=== PATIENT | female | born 2000 | race African-American/Black ===

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

== ENCOUNTER 2021-05-07 17:27 | Inpatient (IN) ==
[2021-05-07] MEDS ORDERED: SODIUM CHLORIDE 0.9% 1000ML 2,000 ML IV ONE (19:27)
[2021-05-07] MEDS ORDERED: ONDANSETRON INJ 2 MG/ML 2 ML VIAL IV STA (19:27)
[2021-05-07] MEDS ORDERED: MoRPHine SULFATE 10 MG/ML CARP/VIAL IV STA (19:27)
--- NOTE | 2021-05-07 19:34 | Emergency Department Note ---
Impression & Plan Sepsis, Sickle cell disease, Pneumonia, Leukocytosis ED Provider Note NAME: SYMONE SAN AGE: 21 SEX: F : 2000 ARRIVES VIA: Walk-In INFORMANT: Patient ED PROVIDER(S): Patrick Stoll DO CHIEF COMPLAINT: Diffuse pain HPI: Patient is a 21-year-old female with a PMH of sickle cell disease, vaginal ulceration, sepsis, sickle cell crises, and pyelonephritis presents to the ER for diffuse joint pain including the bilateral knees and lower back. She also admits to nausea and vomiting. She feels as though this is consistent with her previous sickle cell crisis. She does admit to a cough which is new. She has not been coughing anything up. When she does cough her chest hurts. If she is not coughing she has no chest pain or shortness of breath. She denies any belly pain. No dysuria urgency or frequency. No other exacerbating or remitting fac tors. ROS: See above HPI for pertinent positives & negatives. A total of 10 systems reviewed and were otherwise negative. PAST MEDICAL HISTORY:See Below PAST SURGICAL HISTORY:See Below FAMILY HISTORY:See Below SOCIAL HISTORY:See Below HOME MEDICATIONS:See Below ALLERGIES:See Below VITALS:See Below PHYSICAL EXAMINATION: GENERAL: Sitting up in bed, alert, well appearing, well nourished, no distress, non-toxic EYE EXAM: normal conjunctiva. OROPHARYNX: no exudate, no erythema, lips, buccal mucosa, and tongue normal and mucous membranes are moist NECK: supple, no nuchal rigidity, no adenopathy, non-tender LUNGS: Clear to auscultation. Normal chest wall mechanics HEART: no murmurs, S1 normal and S2 normal ABDOMEN: abdomen soft, non-tender, normo-active bowel sounds, no masses, no rebound or guarding. UPPER EXTREMITIES: upper extremities are grossly normal. LOWER EXTREMITIES: No pitting edema. Flexion-extension of bilateral hips knees and ankles intact. No erythema or swelling. Able to ambulate. NEURO EXAM: Normal sensorium, cranial nerves II-XII grossly intact, normal speech, no gross weakness of arms, no gross weakness of legs. MEDICAL DECISION MAKING: Patient is a 21-year-old female who presents ER for the above-stated complaint. IV was established blood work was obtained. Labs show a significant leukocytosis of 30k. No anemia. BMP along with LFTs, bilirubin, and Trop and lipase was a remark. UA was contaminated. was negative. CT abdomen pelvis showed lower lobe bilateral infiltrates in the chest. Reticulocyte count is elevated. no acute pathology in the belly. Chest x-ray showed a left lower lobe pneumonia. Patient was given IV fluids initially Zosyn with the leukocytosis and the nausea vomiting and belly pain. Patient was given Levaquin once the infiltrates were shown on CT in the lungs. She is given IV fluids. She can multiple dose of narcotics. She was updated bedside. Discussed with hospitalist admitted for further work-up. Triage Nursing notes reviewed. Limited review of prior medical records performed Vital Signs: reviewed and remarkable for tachy Differential diagnosis: Differential diagnoses includes but is not limited to gastritis, peptic ulcer disease, GERD, gallbladder disease, pancreatitis, small bowel obstruction, acute coronary syndrome, pericarditis, ischemic bowel, irritable bowel disease, irritable bowel syndrome, appendicitis, diverticulitis, malignancy, hernia, urinary tract infection, torsion, /ectopic (if female), perforation, trauma, infectious. ER treatment provided: See below Diagnostics interpreted by me: ECG: Sinus tachycardia rate of 116 T wave inversion in the inferior leads Nonspecific ST wave changes in the lateral leads QTC 419 Cardiac Monitoring: An order was placed for continuous cardiac monitoring. The monitor shows a rate of 110 with sinus rhythm. Laboratory studies: As stated above and show below. Imaging studies: See below Consultation(s): Discussed with the hospitalist for further evaluation Procedures: none Critical Care: None Past Med/Surg History Medical History Asthma Leukocytosis Sickle cell anemia Sickle cell anemia with crisis Splenomegaly Surgical History No pertinent past surgical history Family History Other No significant family history Social History Smoking Status: Never smoker Second Hand Exposure: No; Hx Alcohol Use: No Hx Substance Use: No Preferred Language: Bangladeshi Communication Ability: Effective Furniture Polisher Required: No Beliefs That Will Affect Care: None marital status: Single Current Living Situation: Other Current Living Situation Comment: roommates Feels Safe at Home: Yes Assistive Devices: None Allergies Allergies Allergy/AdvReac Type Severity Reaction Status Date / Time peanut Allergy Intermediate ITCHY HIVES Verified 05/07/21 19:16 Home Meds Home Medications Medication Instructions Recorded Confirmed folic acid 1 mg tablet 1 mg PO QAM 07/22/19 05/07/21 cetirizine 10 mg tablet 10 mg PO HS 04/18/20 05/07/21 ergocalciferol (vitamin D2) 1,250 50,000 unit PO WK 04/18/20 05/07/21 mcg (50,000 unit) capsule Previous Rx's Medication Instructions Recorded ondansetron 4 mg disintegrating 4 - 8 mg PO Q8H PRN #14 tab 02/28/21 tablet tramadol 50 mg tablet (Ultram) 50 mg PO Q8H PRN #14 tab 04/09/21 Results & Data (ED) Vital Signs Vital Signs - 24 hr 05/07/21 17:33 05/07/21 19:40 05/07/21 20:52 Temperature 36.8 C Temperature Source Temporal Artery Scan Pulse Rate 132 H Pulse Rate [Radial] 104 H 110 H Pulse Rhythm Regular Pulse Strength Normal Respiratory Rate 20 16 16 Respiratory Effort / Characteristics Non-Labored Respiratory Depth Normal Respiratory Pattern Regular Blood Pressure 104/68 Blood Pressure [Left Arm] 114/63 114/73 Blood Pressure Mean 80 Blood Pressure Mean [Left Arm] 80 86 Blood Pressure Position Sitting Pulse Oximetry 100 100 98 Oxygen Delivery Method Room Air Room Air Room Air Sepsis Recent Fever Within 48 Hours No Sepsis New/Unexplained Change in Mental Status N/A Sepsis Action Taken by Nursing No Action Required Laboratory Data Result diagrams: 05/07/21 19:26 05/07/21 19:26 Lab Results 05/07/21 05/07/21 05/07/21 Range/Units 19:26 19:26 19:30 WBC 30.91 H* (4.8-10.8) K/uL RBC 4.09 L (4.2-5.4) M/uL Hgb 12.8 (12.0-16.0) g/dL Hct 35.8 L (37-47) % MCV 87.5 (80-100) fL MCH 31.3 (25-34) pg MCHC 35.8 (32-36) g/dL RDW Std Deviation 51.6 H (36.4-46.3) fL RDW Coeff of Kashif 16.1 H (11.5-14.5) % Plt Count 322 (130-400) K/uL MPV 9.3 (7.4-10.4) fL Immature Gran % (Auto) 0.5 % Neut % (Auto) 91.2 % Lymph % (Auto) 3.1 % [place] % (Auto) 4.8 % Eos % (Auto) 0.2 % Baso % (Auto) 0.2 % Reticulocyte % (Auto) 6.9 H (0.5-2.0) % Neut # (Auto) 28.20 H (1.4-6.5) K/uL Lymph # (Auto) 0.96 L (1.2-3.4) K/uL [place] # (Auto) 1.48 H (0.11-0.59) K/uL Eos # (Auto) 0.06 (0-0.5) K/uL Baso # (Auto) 0.05 (0-0.2) K/uL Reticulocyte # 0.28 H (0.02-0.10) 10^6/uL Immature Gran # (Auto) 0.16 H (0.00-0.02) K/uL Absolute Nucleated RBC 0.02 H (0-0) K/uL Nucleated RBC % (auto) 0.1 % Polychromasia 1+ Target Cells 1+ Sodium 137 (136-145) mmol/L Potassium 3.9 (3.5-5.1) mmol/L Chloride 106 (98-107) mmol/L Carbon Dioxide 22 (21-32) mmol/L Anion Gap 9.0 (3-11) BUN 7 (7-18) mg/dl Creatinine 0.86 (0.6-1.2) mg/dl Est Cr Clr Drug Dosing 95.0 ml/min Est GFR ( Amer) 112.7 ml/min Est GFR (Non-Af Amer) 97.3 ml/min BUN/Creatinine Ratio 7.8 L (10-20) Glucose 88 (70-99) mg/dl Calcium 9.4 (8.5-10.1) mg/dl Total Bilirubin 3.1 H (0.2-1) mg/dl AST 26 (15-37) U/L ALT 22 (12-78) U/L Alkaline Phosphatase 73 (45-117) U/L Total Protein 8.5 H (6.4-8.2) gm/dl Albumin 4.3 (3.4-5.0) gm/dl Globulin 4.2 H (2.5-4.0) gm/dl Albumin/Globulin Ratio 1.0 (0.9-2) Lipase 58 L (73-393) U/L Urine Color [place] Urine Appearance Cloudy A (Clear) Urine pH 5.5 (4.5-7.5) Ur Specific [place] 1.015 (1.000-1.030) Urine Protein Trace H (Negative) Urine Glucose (UA) Negative (Negative) Urine Ketones 4+ H (Negative) Urine Blood Negative (Negative) Urine Nitrite Negative (Negative) Urine Bilirubin Negative (Negative) Urine Urobilinogen Negative (Negative) Ur Leukocyte Esterase Trace H (Negative) Urine WBC (Auto) 10-30 H (0-5) /hpf Urine RBC (Auto) 0-4 (0-4) /hpf U Hyaline Cast (Auto) 1-5 (0-5) /lpf U Epithel Cells (Auto) >30 H (0-5) /lpf Urine Bacteria (Auto) 1+ H (Negative) POC Ur Test (NEG) COVID-19 Eval Order SARS-CoV-2, RNA, NAAT (NEGATIVE) 05/07/21 05/07/21 05/07/21 Range/Units 19:30 19:44 19:44 WBC (4.8-10.8) K/uL RBC (4.2-5.4) M/uL Hgb (12.0-16.0) g/dL Hct (37-47) % MCV (80-100) fL MCH (25-34) pg MCHC (32-36) g/dL RDW Std Deviation (36.4-46.3) fL RDW Coeff of Kashif (11.5-14.5) % Plt Count (130-400) K/uL MPV (7.4-10.4) fL Immature Gran % (Auto) % Neut % (Auto) % Lymph % (Auto) % [place] % (Auto) % Eos % (Auto) % Baso % (Auto) % Reticulocyte % (Auto) (0.5-2.0) % Neut # (Auto) (1.4-6.5) K/uL Lymph # (Auto) (1.2-3.4) K/uL [place] # (Auto) (0.11-0.59) K/uL Eos # (Auto) (0-0.5) K/uL Baso # (Auto) (0-0.2) K/uL Reticulocyte # (0.02-0.10) 10^6/uL Immature Gran # (Auto) (0.00-0.02) K/uL Absolute Nucleated RBC (0-0) K/uL Nucleated RBC % (auto) % Polychromasia Target Cells Sodium (136-145) mmol/L Potassium (3.5-5.1) mmol/L Chloride (98-107) mmol/L Carbon Dioxide (21-32) mmol/L Anion Gap (3-11) BUN (7-18) mg/dl Creatinine (0.6-1.2) mg/dl Est Cr Clr Drug Dosing ml/min Est GFR ( Amer) ml/min Est GFR (Non-Af Amer) ml/min BUN/Creatinine Ratio (10-20) Glucose (70-99) mg/dl Calcium (8.5-10.1) mg/dl Total Bilirubin (0.2-1) mg/dl AST (15-37) U/L ALT (12-78) U/L Alkaline Phosphatase (45-117) U/L Total Protein (6.4-8.2) gm/dl Albumin (3.4-5.0) gm/dl Globulin (2.5-4.0) gm/dl Albumin/Globulin Ratio (0.9-2) Lipase (73-393) U/L Urine Color Urine Appearance (Clear) Urine pH (4.5-7.5) Ur Specific [place] (1.000-1.030) Urine Protein (Negative) Urine Glucose (UA) (Negative) Urine Ketones (Negative) Urine Blood (Negative) Urine Nitrite (Negative) Urine Bilirubin (Negative) Urine Urobilinogen (Negative) Ur Leukocyte Esterase (Negative) Urine WBC (Auto) (0-5) /hpf Urine RBC (Auto) (0-4) /hpf U Hyaline Cast (Auto) (0-5) /lpf U Epithel Cells (Auto) (0-5) /lpf Urine Bacteria (Auto) (Negative) POC Ur Test NEG (NEG) COVID-19 Eval [facility] SARS-CoV-2, RNA, NAAT NEGATIVE (NEGATIVE) Administered Medications Discontinued Medications Hydromorphone HCl (Hydromorphone Inj 0.5 Mg/0.5 Ml Syr) 0.5 mg IV NOW STA Stop: 05/07/21 20:19 Last Admin: 05/07/21 20:25 Dose: 0.5 mg Documented by: [id number] Hydromorphone HCl (Hydromorphone Inj 0.5 Mg/0.5 Ml Syr) 0.5 mg IV NOW STA Stop: 05/07/21 22:43 Last Admin: 05/07/21 23:38 Dose: 0.5 mg Documented by: [id number] Sodium Chloride (Nss 1000ml) 2,000 mls @ 999 mls/hr IV .Q2H1M ONE Stop: 05/07/21 21:27 Last Infusion: 05/07/21 21:42 Dose: 0 mls/hr Documented by: [id number] Admin: 05/07/21 19:42 Dose: 999 mls/hr Documented by: [id number] Piperacillin Sod/Tazobactam (Sod 4.5 gm/ Dextrose) 120 mls @ 200 mls/hr IV NOW ONE; Protocol Stop: 05/07/21 20:37 Last Infusion: 05/07/21 20:48 Dose: 0 mls/hr Documented by: [id number] Admin: 05/07/21 20:18 Dose: 200 mls/hr Documented by: [id number] Levofloxacin/Dextrose (Levaquin/D5w) 750 mg in 150 mls @ 100 mls/hr IV NOW STA Stop: 05/07/21 22:33 Last Admin: 05/07/21 21:16 Dose: 100 mls/hr Documented by: [id number] Ioversol (Optiray 320 100ml) 90 ml IV ONCE ONE Stop: 05/07/21 20:37 Last Admin: 05/07/21 20:39 Dose: 90 ml Documented by: [id number] Morphine Sulfate (Morphine Sulfate 10 Mg/Ml Carp/Vial) 6 mg IV NOW STA Stop: 05/07/21 19:28 Last Admin: 05/07/21 19:42 Dose: 6 mg Documented by: [id number] Ondansetron HCl (Ondansetron Inj 2 Mg/Ml 2 Ml Vial) 4 mg IV NOW STA Stop: 05/07/21 19:28 Last Admin: 05/07/21 19:42 Dose: 4 mg Documented by: [id number] Imaging Data Radiologist's Impression: Chest X-Ray 05/07/21 19:27 XR chest 1V portable CLINICAL HISTORY: weak COMPARISON STUDY: Chest radiograph April 09, 2021. FINDINGS: Lung volumes are normal. There is suspected minimal left lower lung airspace opacity. There is no pneumothorax or pleural effusion. Cardiac size is normal. Mediastinal contours are normal. There is no evidence for pulmonary ed alma. IMPRESSION: Suspected minimal left lower lung opacity which may reflect an infectious process. ACT 112: Negative or not required by law. Electronically signed by: Jono Quintero M.D. 05/07/2021 7:44 PM Abdomen/Pelvis CT 05/07/21 20:00 CT OF THE ABDOMEN AND PELVIS WITH CONTRAST CLINICAL HISTORY: Nausea and vomiting. Leukocytosis. History of sickle cell. COMPARISON STUDY: CT of the abdomen and pelvis October 13, 2020. MRCP October 14, 2020. Right upper quadrant ultrasound February 28, 2021. TECHNIQUE: Following IV administration of 90 mL of Optiray, axial images of the abdomen and pelvis were obtained from the lung bases to the proximal femurs. Images were reviewed in the axial, sagittal, and coronal planes. IV contrast was administered without complication. Automated exposure control was utilized for the study. A dose lowering technique was utilized adhering to the principles of ALARA. CT DOSE: 249.33 mGy.cm FINDINGS: Note is made of numerous small nodular opacities with associated ground glass opacity within the lower lungs, greatest within the left lower lobe. These are new since prior CT. No pneumatosis, free air or portal venous gas is present. The liver, spleen, adrenal glands, kidneys and pancreas are unremarkable. There is no biliary or pancreatic ductal dilatation. There are gallstones within the gallbladder without evidence for acute cholecystitis. No peripancreatic or pericholecystic infiltration is present. The appendix is normal. The caliber and wall thickness of small and large bowel are normal. Small amount of fluid within the pelvis is noted. Major vasculature is patent. The ovaries are not enlarged. Mild bladder wall thickening is present. There is no acute fracture or suspicious lesion within the visualized skeletal structures. IMPRESSION: 1. Multifocal nodular airspace opacities within the lower lungs. These favor an infectious process. 2. Cholelithiasis. No evidence for acute cholecystitis. 3. Small amount of fluid within the pelvis. 4. Bladder wall thickening which be correlated with urinalysis to exclude cystitis. ACT 112: Negative or not required by law. Electronically signed by: Jono Quintero M.D. 05/07/2021 9:02 PM Discharge Plan Visit Data Chief Complaint: Vomiting Stated Complaint: VOMITING,CONGESTION,COUGH ED Provider: Patrick Stoll Discharge Problem: Sepsis, Sickle cell disease, Pneumonia, Leukocytosis Discharge Instructions Interventions: ED Discharge Assessment Last Done: 05/07/21 23:20
--- NOTE | 2021-05-07 19:46 | XRay Report ---
XR chest 1V portable CLINICAL HISTORY: weak COMPARISON STUDY: Chest radiograph April 09, 2021. FINDINGS: Lung volumes are normal. There is suspected minimal left lower lung airspace opacity. There is no pneumothorax or pleural effusion. Cardiac size is normal. Mediastinal contours are normal. The re is no evidence for pulmonary edema. IMPRESSION: Suspected minimal left lower lung opacity which may reflect an infectious process. ACT 112: Negative or not required by law. Electronically signed by: Jono Quintero M.D. 05/07/2021 7:44 PM
[2021-05-07 19:51] LABS: Appearance Urine Cloudy (Clear); Bacteria Urine Automated 1+ (Negative); Bilirubin Urine Negative (Negative); Blood Urine Negative (Negative); Color Urine Orange; Epithelial Cell Urine Auto >30 /lpf (0-5); Glucose Urine UA Negative (Negative); Ketones Urine 4+ (Negative); Leukocyte Esterase Urine Trace (Negative); Nitrite Urine Negative (Negative); Protein Urine Trace (Negative); RBC Urine Automated 0-4 /hpf (0-4); Specific Gravity Urine 1.015 (1.000-1.030); Urobilinogen Urine Negative (Negative); pH Urine 5.5 (4.5-7.5)
[2021-05-07 20:00] LABS: Hematocrit (blood only) 35.8 % (37-47); Hemoglobin 12.8 g/dL (12.0-16.0); Mean Corpuscular Hemoglobin 31.3 pg (25-34); Mean Corpuscular Hgb Conc 35.8 g/dL (32-36); Mean Corpuscular Volume 87.5 fL (80-100); Mean Platelet Volume 9.3 fL (7.4-10.4); Nucleated RBC # (auto) 0.02 K/uL (0-0); Nucleated RBC % (auto) 0.1 %; Platelet Count 322 K/uL (130-400); RDW Coefficient of Variation 16.1 % (11.5-14.5); RDW Standard Deviation 51.6 fL (36.4-46.3); Red Blood Count 4.09 M/uL (4.2-5.4); White Blood Count 30.91 K/uL (4.8-10.8)
[2021-05-07] MEDS ORDERED: PIPERACILLIN/TAZOBACTAM 4.5 GM in DEXTROSE 5% 100 ML IV ONE (20:02)
[2021-05-07] MEDS ORDERED: PIPERACILL/TAZOBAC CONSULT ACTIVE PRN (20:02)
[2021-05-07 20:13] LABS: Albumin Level 4.3 gm/dl (3.4-5.0); BUN Creatinine Ratio 7.8 (10-20); Calcium 9.4 mg/dl (8.5-10.1); Est GFR (African American) 112.7 ml/min; Est GFR (Non-African American) 97.3 ml/min; Potassium 3.9 mmol/L (3.5-5.1)
[2021-05-07 20:15] LABS: Bilirubin,Total 3.1 mg/dl (0.2-1); Globulin 4.2 gm/dl (2.5-4.0); Total Protein 8.5 gm/dl (6.4-8.2)
[2021-05-07] MEDS ORDERED: HYDROmorphone INJ 0.5 MG/0.5 ML SYR IV STA ×2 (20:18→22:42)
[2021-05-07 20:35] LABS: Basophils # (auto) 0.05 K/uL (0-0.2); Basophils % (auto) 0.2 %; Eosinophils # (auto) 0.06 K/uL (0-0.5); Eosinophils % (auto) 0.2 %; Immature Granulocytes # (auto) 0.16 K/uL (0.00-0.02); Immature Granulocytes % (auto) 0.5 %; Lymphocytes # (auto) 0.96 K/uL (1.2-3.4); Lymphocytes % (auto) 3.1 %; Monocytes # (auto) 1.48 K/uL (0.11-0.59); Monocytes % (auto) 4.8 %; Neutrophils % (auto) 91.2 %; Polychromasia 1+; Reticulocyte % 6.9 % (0.5-2.0); Reticulocytes # 0.28 10^6/uL (0.02-0.10); Target Cells 1+
[2021-05-07] MEDS ORDERED: OPTIRAY 320 100ml IV ONE (20:36)
--- NOTE | 2021-05-07 21:03 | CT Scan Report ---
CT OF THE ABDOMEN AND PELVIS WITH CONTRAST CLINICAL HISTORY: Nausea and vomiting. Leukocytosis. History of sickle cell. COMPARISON STUDY: CT of the abdomen and pelvis October 13, 2020. MRCP October 14, 2020. Right uppe r quadrant ultrasound February 28, 2021. TECHNIQUE: Following IV administration of 90 mL of Optiray, axial images of the abdomen and pelvis we re obtained from the lung bases to the proximal femurs. Images were reviewed in the axial, sagittal, and coronal planes. IV contrast was administered without complication. Automated exposure control wa s utilized for the study. A dose lowering technique was utilized adhering to the principles of ALARA . CT DOSE: 249.33 mGy.cm FINDINGS: Note is made of numerous small nodular opacities with associated ground glass opacity withi n the lower lungs, greatest within the left lower lobe. These are new since prior CT. No pneumatosis, free air or portal venous gas is present. The liver, spleen, adrenal glands, kidneys and pancreas ar e unremarkable. There is no biliary or pancreatic ductal dilatation. There are gallstones within the gallbladder without evidence for acute cholecystitis. No peripancreatic or pericholecystic infiltrati on is present. The appendix is normal. The caliber and wall thickness of small and large bowel are no rmal. Small amount of fluid within the pelvis is noted. Major vasculature is patent. The ovaries are not enlarged. Mild bladder wall thickening is present. There is no acute fracture or suspicious lesio n within the visualized skeletal structures. IMPRESSION: 1. Multifocal nodular airspace opacities within the lower lungs. These favor an infectious process. 2. Cholelithiasis. No evidence for acute cholecystitis. 3. Small amount of fluid within the pelvis. 4. Bladder wall thickening which be correlated with urinalysis to exclude cystitis. ACT 112: Negative or not required by law. Electronically signed by: Jono Quintero M.D. 05/07/2021 9:02 PM
[2021-05-07] MEDS ORDERED: levoFLOXacin/D5W 750 MG/150 ML BAG IV STA (21:04)
[2021-05-07] MEDS ORDERED: VANCOMYCIN CONSULT ACTIVE PRN (23:32)
[2021-05-07] MEDS ORDERED: HYDROmorphone INJ 0.5 MG/0.5 ML SYR IV PRN ×2 (23:32)
[2021-05-07] MEDS ORDERED: traMADol HCL 50 MG TABLET PO PRN (23:32)
[2021-05-07] MEDS ORDERED: POLYETHYLENE (MIRALAX) 17 GM PACK PO PRN (23:32)
[2021-05-07] MEDS ORDERED: VANCOMYCIN HCL 1,500 MG in SODIUM CHLORIDE 0.9% 500 ML IV ONE (23:45)
[2021-05-08] MEDS: ENOXAPARIN INJ 40 MG/0.4 ML SYR SQ SCH ×2 (00:48→20:10)
--- NOTE | 2021-05-08 00:52 | History & Physical Report ---
Date of Service May 08, 2021 Assessment & Plan (1) Sickle cell disease: Plan: 21 yo M w/ pMHx. of sickle cell disease presents with upper respiratory symptoms, cough and pain in her back and knees along with nausea and vomiting. Pneumonia, community acquired CXR: left lower lobe opacity CT A/P w concern for pulm. infection - D5 1/2 NS MIVF - started Azithromycin - started Vancomycin initially but stopped due to rash (unclear if allergic vs. red man syndrome) - started on Ceftriaxone - blood cultures ordered - Albuterol PRN - encourage IS Pain crisis - will need to call Symone with hematology at [facility] at [phone] to discuss her care - currently getting PRN Dilaudid 0.5 mg Q2H and 1 mg Q2H based on pain scale - Toradol available Q6H PRN - LDH, smear, haptoglobin ordered Code: full Diet: regular DVT: SCD's (2) Pneumonia: (3) Asthma: Admission and Anticipated Discharge Date Admission Date: May 07, 2021 History of Present Illness Chief Complaint: cough and back pain Primary Care Provider: [facility] Kaylan Armenta is a 21-year-old female with sickle cell anemia here with a cough and back pain. She has experienced 3 days of a cough and congestion. She has had pneumonia previously and felt that this was more mild but similar. She has had decreased oral intake and had vomited multiple times over the last couple days. She feels that her back and leg pain is similar to her prior pain crisis she has had. Her pain was as bad as 9/10, currently after pain medication in the ER is was 7/10. Patient is seen in [place] with hematology and [employer] Symone available at #[phone] (unavailable overnight) I discussed her case with hematology resident at [facility] ([phone]) who brought up there common dosing schedule of 0.1 mg/kg dosing Q3H of Morphine along with Toradol Q6H (up to 20 total doses), and transitioning to Motrin and Tramadol on discharge. Social Hx.: denies tobacco use admits rare ETOH use denies rec. drug use Mother Candy # [phone] Father Karel # [phone] Allergies Allergy/AdvReac Type Severity Reaction Status Date / Time peanut Allergy Intermediate ITCHY HIVES Verified 05/07/21 19:16 Home Medications Medication Instructions Recorded Confirmed Type folic acid 1 mg tablet 1 mg PO QAM 07/22/19 05/07/21 History cetirizine 10 mg tablet 10 mg PO HS 04/18/20 05/07/21 History ergocalciferol (vitamin D2) 1,250 50,000 unit PO WK 04/18/20 05/07/21 History mcg (50,000 unit) capsule ondansetron 4 mg disintegrating 4 - 8 mg PO Q8H PRN #14 tab 02/28/21 05/07/21 Rx tablet tramadol 50 mg tablet (Ultram) 50 mg PO Q8H PRN #14 tab 04/09/21 05/07/21 Rx Past Med/Surg History Medical History Asthma Leukocytosis Sickle cell anemia Sickle cell anemia with crisis Splenomegaly Surgical History No pertinent past surgical history Family History Other No significant family history Social History Smoking Status: Never smoker Second Hand Exposure: No; Hx Alcohol Use: No Hx Substance Use: No Preferred Language: Singaporean Communication Ability: Effective 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 Beliefs That Will Affect Care: None marital status: Single Current Living Situation: Other Current Living Situation Comment: roommates Feels Safe at Home: Yes Assistive Devices: Glasses Review of Systems Review of Systems: Constitutional: denies fevers, diaphoresis, night sweats, weight loss admits chills, nausea, vomiting 5+ times with bile, general weakness Head: denies trauma admits headache Neuro.: denies syncope, focal weakness, neck stiffness admits numbness and tingling in hands, pre syncope ENT: denies sneezing, sore throat admits rhinorrhea, stuffiness Cardiac: denies chest pain admits palpitations Pulm.: admits cough, green sputum production (improved today) GI: denies diarrhea, constipation : denies urgency, frequency, dysuria Physical Exam Constitutional: well developed, well nourished and cooperative Eyes: PERRL, conjunctivae normal, anicteric sclerae ENMT: external ear and nose normal, oropharynx normal Neck: normal visual inspection Respiratory: normal respiratory effort, lungs clear to auscultation able to speak in complete sentences Cardiovascular: RRR, no murmur, no edema Gastrointestinal (Abdomen): normal bowel sounds, soft, nontender, no hepatosplenomegaly Skin: - after vancomycin pt. developed raised rash on her face around her nose with well defined border Neurologic: no focal motor deficits Psychiatric: A+Ox3, euthymic affect Results & Data Results & Data ([facility]) Vital Signs (Past 12 Hours) Vital Signs Temp Pulse Pulse Resp BP BP Pulse Ox 05/07/21 23:58 37.9 C H 123 H 20 122/80 97 05/07/21 22:39 117 H 16 114/73 100 05/07/21 20:52 110 H 16 114/73 98 05/07/21 19:40 104 H 16 114/63 100 05/07/21 17:33 36.8 C 132 H 20 104/68 100 CBC Results Results Complete Blood Count Results: RBC 3.34 M/uL (4.2-5.4) L 05/08/21 WBC 22.19 K/uL (4.8-10.8) H 05/08/21 Hgb 10.1 g/dL (12.0-16.0) L 05/08/21 Hct 28.4 % (37-47) L 05/08/21 Plt Count 242 K/uL (130-400) 05/08/21 Chemistry (BMP) Results BMP Results: Sodium 137 mmol/L (136-145) 05/07/21 Potassium 3.9 mmol/L (3.5-5.1) 05/07/21 Chloride 106 mmol/L (98-107) 05/07/21 BUN 7 mg/dl (7-18) 05/07/21 Creatinine 0.86 mg/dl (0.6-1.2) 05/07/21 Glucose 88 mg/dl (70-99) 05/07/21 Code Status & VTE Plan VTE Prophylaxis Plan VTE Prophylaxis will be ordered: Yes Supervising Physician Co-Signing Physician Notes patient seen and examined, chart reviewed, case discussed with Dr. Alves and I agree with his assessment and plan. In brief, patient is a 21yo female with history of SSA presenting with acute pain crisis as well as PNA. She endorses back pain and cough/congestion. Imaging with bilateral airspace opacities Covid-19 is NEGATIVE. Patient is vaccinated against Covid On exam she is uncomfortable, NAD Skin - intact, no rashes/lesions HEENT - NC/AT, PERRL, MMM Heart - +S1/S2, regular Lungs - +crackles in bilateral bases Abd - +BS, soft, NT/ND Ext - no edema Labs and images reviewed. Elevated WBC, H/H above normal as well - ?hemoconcentration. Elevated Tbili and LDH -IVF with D51/2NSS -Pain management with Dilaudid PRN -Azithromycin, Ceftriaxone. -Patient developed rash with Vancomycin - infusion discontinued, Benadryl given -Remainder of plan as above Resident Activity Tracking Resident Involvement: Resident Care Provided Care Provided: Adult Hospital Medicine (1) Sickle cell disease Sickle-cell associated disorders: with unspecified crisis Qualified Code(s): D57.00 - Hb-SS disease with crisis, unspecified (2) Pneumonia Laterality: unspecified laterality Lung location: unspecified part of lung Pneumonia type: due to unspecified organism Qualified Code(s): J18.9 - Pneumonia, unspecified organism
[2021-05-08] MEDS: AZITHROMYCIN 500 MG in DEXTROSE 5% 250 ML IV SCH ×2 (01:03→22:25)
[2021-05-08] MEDS ORDERED: ONDANSETRON INJ 2 MG/ML 2 ML VIAL IV PRN (01:30)
[2021-05-08] MEDS ORDERED: HYDROmorphone INJ 0.5 MG/0.5 ML SYR IV PRN ×2 (01:42→08:46)
[2021-05-08] MEDS ORDERED: HYDROmorphone INJ 1 MG/ML SYRINGE IV PRN (01:42)
[2021-05-08] MEDS: cefTRIAXone SODIUM 1,000 MG in DEXTROSE 5% 50 ML IV SCH (02:01)
[2021-05-08] MEDS ORDERED: KETOROLAC TROMETHAMINE 15 MG/ML VIAL IV PRN (02:07)
[2021-05-08] MEDS: D5W AND 1/2NSS 1,000 ML IV SCH ×4 (02:11→16:23)
[2021-05-08] MEDS ORDERED: diphenhydrAMINE 50 MG/ML VIAL IV STA (03:03)
[2021-05-08] MEDS ORDERED: diphenhydrAMINE 50 MG/ML VIAL ONE (03:05)
[2021-05-08] MEDS ORDERED: FAMOTIDINE 20 MG in SYRINGE 3 ML IV ONE (03:30)
[2021-05-08] MEDS ORDERED: ALBUTEROL HFA 8 GM INHALER INH PRN ×2 (04:42→05:38)
--- NOTE | 2021-05-08 05:25 | Billing Data ---
Date of Service May 08, 2021 Coding Level of Care Code 05334 Initial Inpt Care Lvl 2
[2021-05-08] MEDS ORDERED: ALBUTEROL HFA 8 GM INHALER INH SCH (07:00)
[2021-05-08 07:07] LABS: Basophils # (auto) 0.03 K/uL (0-0.2); Basophils % (auto) 0.1 %; Eosinophils # (auto) 0.17 K/uL (0-0.5); Eosinophils % (auto) 0.8 %; Hematocrit (blood only) 28.4 % (37-47); Hemoglobin 10.1 g/dL (12.0-16.0); Immature Granulocytes # (auto) 0.07 K/uL (0.00-0.02); Immature Granulocytes % (auto) 0.3 %; Lymphocytes # (auto) 1.59 K/uL (1.2-3.4); Lymphocytes % (auto) 7.2 %; Mean Corpuscular Hemoglobin 30.2 pg (25-34); Mean Corpuscular Hgb Conc 35.6 g/dL (32-36); Monocytes # (auto) 1.75 K/uL (0.11-0.59); Monocytes % (auto) 7.9 %; Neutrophils # (auto) 18.58 K/uL (1.4-6.5); Neutrophils % (auto) 83.7 %; Platelet Count 242 K/uL (130-400); RDW Coefficient of Variation 15.7 % (11.5-14.5); RDW Standard Deviation 48.4 fL (36.4-46.3); Red Blood Count 3.34 M/uL (4.2-5.4); White Blood Count 22.19 K/uL (4.8-10.8)
[2021-05-08] MEDS: FOLIC ACID 1 MG TAB PO SCH (07:22)
[2021-05-08 07:45] LABS: Albumin Level 3.2 gm/dl (3.4-5.0); BUN Creatinine Ratio 5.3 (10-20); Calcium 8.7 mg/dl (8.5-10.1); Creatinine Clr Calc Pharmacy 130.6 ml/min; Est GFR (African American) 148.9 ml/min; Est GFR (Non-African American) 128.5 ml/min; Potassium 3.6 mmol/L (3.5-5.1)
[2021-05-08 07:50] LABS: Albumin Globulin Ratio 0.9 (0.9-2); Bilirubin,Total 1.6 mg/dl (0.2-1); Globulin 3.4 gm/dl (2.5-4.0); Total Protein 6.6 gm/dl (6.4-8.2)
--- NOTE | 2021-05-08 08:00 | Hospitalist Progress Note ---
Date of Service May 08, 2021 Assessment & Plan (1) Sickle cell disease: Plan: 21 yo M w/ pMHx. of sickle cell disease presents with upper respiratory symptoms, cough and pain in her back and knees along with nausea and vomiting. Pneumonia - CXR: Suspected minimal left lower lung opacity which may reflect an infectious process - CT A/P: Multifocal nodular airspace opacities within the lower lungs, which favor an infectious process. Cholelithiasis, no evidence for acute cholecystitis. Small amount of fluid within the pelvis. Bladder wall thickening which should be correlated with urinalysis to exclude cystitis. - Negative procalcitonin making viral PNA more likely but atypical organisms may present similarly and not necessarily cause elevated procal - started Vancomycin initially but stopped due to rash (unclear if allergic vs. red man syndrome) - Sputum culture ordered - continue Azithromycin - continue on Ceftriaxone for now but may be able to stop this once cultures have resulted - blood cultures pending - Albuterol PRN - encourage Incentive Spirometry Acute Pain Episode in Patient with Sickle Cell Disease - Per conversation with BRADEN Fish with hematology at [facility] ([phone]), they have found Dilaudid 0.01mg/kg q3h scheduled to help for patient - Additionally, recommended calling [phone] if any questions overnight - Ordered Dilaudid 0.5mg q3h scheduled as per discussion above -- plan to eventually start weaning to q4h, and the oral tramadol wean over 2 days after discharge per discussion with Petra Vargas - Continue to monitor pain response Diet: Regular DVT: Lovenox 40mg SQ daily Dispo: [facility] w/ telemetry Code: FULL CODE (2) Pneumonia: (3) Asthma: Admission and Anticipated Discharge Date Admission Date: May 07, 2021 Supervising Physician Co-Signing Physician Notes Resident Physician Supervision Note: I independently interviewed and examined the patient and verified the knox history and physical, reviewed labs and image studies and agree with resident Dr. Medina findings and care plan. Subjective Seen at bedside this AM. Patient sleeping. However, she did report having 7/10 pain specifically in her knees and lower back. She reported ongoing cough as well but somewhat better than initially. Otherwise no complaints. Review of Systems Review of Systems: Denies fever, chills, n/v, abd pain, chest pain, palp, SOB. Physical Exam Physical Exam: GENERAL: A&Ox3. NAD. HEENT: PERRL, EOMI. Moist mucous membranes. NECK: No JVD. No lymphadenopathy. CHEST/LUNGS: CTAB A/P. No crackles, wheezes, rales, ronchi. HEART: RRR. No m/g/r. No carotid bruits. ABDOMEN: NT/ND, soft. BS+ x4 EXTREMITIES: No cyanosis, no clubbing, no edema. Non-TTP at knees and lower back. SKIN: Warm and dry. No rashes or lesions. PSYCHIATRIC: Euthymic affect, no SI, no pressured speech, no hallucinations NEUROLOGIC: No FND. Results & Data Results & Data ([facility]) Vital Signs (Past 12 Hours) Vital Signs Temp Pulse Pulse Resp BP Pulse Ox 05/08/21 07:43 36.9 C 100 H 20 108/72 100 05/08/21 06:58 90 05/08/21 03:34 37.0 C 93 H 16 109/70 100 05/08/21 01:10 101 H 05/07/21 23:58 37.9 C H 123 H 20 122/80 97 05/07/21 22:39 117 H 16 114/73 100 05/07/21 20:52 110 H 16 114/73 98 Resident Activity Tracking Resident Involvement: Resident Care Provided Care Provided: Adult Hospital Medicine (1) Sickle cell disease Sickle-cell associated disorders: with unspecified crisis Qualified Code(s): D57.00 - Hb-SS disease with crisis, unspecified (2) Pneumonia Laterality: unspecified laterality Lung location: unspecified part of lung Pneumonia type: due to unspecified organism Qualified Code(s): J18.9 - Pneumonia, unspecified organism
--- NOTE | 2021-05-08 08:41 | Medical Student Progress Note ---
Date of Service May 08, 2021 Assessment & Plan (1) Sickle cell disease: Sickle-cell associated disorders: with unspecified crisis Qualified Code(s): D57.00 - Hb-SS disease with crisis, unspecified (2) Pneumonia: Laterality: unspecified laterality Lung location: unspecified part of lung Pneumonia type: due to unspecified organism Qualified Code(s): J18.9 - Pneumonia, unspecified organism Plan: This is a 21 y/o female with h/o sickle cell anemia and 2 previous PNA infections, with chief compliant of productive cough. She was admitted with suspicion for PNA infection. CXR shows evidence of nodular opacities in the lower lungs. Pending results of blood and urine culture. Acute Issues #1 - Productive Cough/Suspected Community Acquired PNA -afebrile -continues to cough -Procalcitonin not elevated - Continue empiric IV Azithromycin and IV Ceftriaxone pending return of the blood/urine cultures. - Sputum cultures ordered this morning. #2 - Acute pain related to Sickle Cell Disease - rates low back pain and BL knee pain on admission at 9/10 - Pain Plan: Hydromorphone 0.5mg IVQ3H Chronic Issues #1 Allergies. Continue cetirizine. #2 Asthma. Continue Albuterol. DVT Prophylaxis: 40 mg Enoxaparin SQ HS FEN/GI: Regular Diet Code Status: Full Code Dispo: Home pending improvement in condition and pain controlled. Admission and Anticipated Discharge Date Admission Date: May 07, 2021 Subjective 21 y/o female with h/o of Sickle Cell Anemia and 2 past PNA infections presents with cough. She was admitted at 1:00 AM. She states on 05/05/21 she began to have a productive cough. She states no blood with her cough. Reports no subjective fever. States she felt that her heart was racing faster than normal as well. No body aches when the cough first started. As the cough progressed she also noticed onset of body aches particular to her low back and knees. Initially she rates her pain as 9/10 and this morning it was 7/10. She thinks her body aches are related to the Sickle Cell Anemia. In the past her body aches have been Tx with tramadol. She has no pain with inspiration. She used her Albuterol when the cough appeared and states it provided mild alleviation. Upon admission she was Tx with empiric IV Azithromycin and IV Ceftriaxone. [facility] in [place] manages her Sickle Cell Anemia. She states that they give her morphine for Tx in the past. Physical Exam Constitutional: Pleasant affect. Responding appropriately to questions. Eyes: No visible discharge from eyes. Respiratory: Lungs clear to auscultation BL. No labored breaths. No wheezing. She had no episodes of coughing when I was taking a history from her. Cardiovascular: Regular Rhythm. Tachycardic. No rubs, murmurs or gallops. Musculoskeletal: No pain with palpation to her low back and knees. Skin: No lacerations, ecchymosis, erythema to her low back. Psychiatric: AOx3 Results & Data ([facility]) Vital Signs (Past 12 Hours) Vital Signs Temp Pulse Pulse Resp BP Pulse Ox 05/08/21 07:43 36.9 C 100 H 20 108/72 100 05/08/21 06:58 90 05/08/21 03:34 37.0 C 93 H 16 109/70 100 05/08/21 01:10 101 H 05/07/21 23:58 37.9 C H 123 H 20 122/80 97 05/07/21 22:39 117 H 16 114/73 100 05/07/21 20:52 110 H 16 114/73 98 Laboratory Results Hb - 10.1 g/dL Hct - 28.4% WBC - 22 K/uL Plt - 242 K/uL Na - 135 mmol/L K - 3.6 mmol/L Cl - 106 mmol/L HCO3 - 25 mmol/L BUN - 3 mg/dl Cr - .64 mg/dl Glucose - 103 mg/dl Procalcitonin - .39 ng/ml Diagnostic Findings ABD CT: Multifocal nodular airspace opacities within the lower lungs. These favor an infectious process. CXR: Suspected minimal left lower lung opacity which may reflect an infectious process. Microbiology: Pending Blood and Urine Cultures MSRA Nare Test: Negative
--- NOTE | 2021-05-08 08:52 | Electrocardiogram Report ---
Test Reason : Blood Pressure : / mmHG Vent. Rate : 116 BPM Atrial Rate : 116 BPM P-R Int : 178 ms QRS Dur : 076 ms QT Int : 302 ms P-R-T Axes : 069 063 -68 degrees QTc Int : 419 ms Sinus tachycardia Left atrial enlargement Diffuse Nonspecific T wave abnormality Abnormal ECG When compared with ECG of 09-APR-2021 02:00, Inverted T waves have replaced nonspecific T wave abnormality in Inferior leads Confirmed by Cleveland Fortune ([id number] on 05/08/2021 8:52:26 AM Referred By: REFERRED SELF Confirmed By:Cleveland Fortune
[2021-05-08] MEDS ORDERED: KETOROLAC TROMETHAMINE 15 MG/ML VIAL IV SCH (10:00)
[2021-05-08] MEDS: ALBUTEROL 0.083% NEBU SOLN 3 ML VIAL NEB PRN ×2 (14:20→21:44)
[2021-05-08] MEDS ORDERED: HYDROmorphone INJ 0.5 MG/0.5 ML SYR IV SCH (16:00)
[2021-05-08] MEDS: HYDROmorphone INJ 0.5 MG/0.5 ML SYR IV SCH ×3 (16:24→22:25)
[2021-05-08] MEDS: CETIRIZINE HCL 10 MG TABLET PO SCH (20:10)
[2021-05-09] MEDS: HYDROmorphone INJ 0.5 MG/0.5 ML SYR IV SCH ×7 (00:23→18:39)
[2021-05-09] MEDS: cefTRIAXone SODIUM 1,000 MG in DEXTROSE 5% 50 ML IV SCH (01:14)
[2021-05-09 07:05] LABS: Basophils # (auto) 0.04 K/uL (0-0.2); Basophils % (auto) 0.4 %; Eosinophils # (auto) 0.45 K/uL (0-0.5); Eosinophils % (auto) 4.1 %; Hematocrit (blood only) 27.1 % (37-47); Hemoglobin 9.6 g/dL (12.0-16.0); Immature Granulocytes # (auto) 0.02 K/uL (0.00-0.02); Immature Granulocytes % (auto) 0.2 %; Lymphocytes # (auto) 1.81 K/uL (1.2-3.4); Lymphocytes % (auto) 16.7 %; Mean Corpuscular Hemoglobin 30.3 pg (25-34); Mean Corpuscular Hgb Conc 35.4 g/dL (32-36); Mean Corpuscular Volume 85.5 fL (80-100); Mean Platelet Volume 9.4 fL (7.4-10.4); Monocytes # (auto) 1.23 K/uL (0.11-0.59); Monocytes % (auto) 11.3 %; Neutrophils # (auto) 7.32 K/uL (1.4-6.5); Neutrophils % (auto) 67.3 %; Platelet Count 253 K/uL (130-400); RDW Coefficient of Variation 15.4 % (11.5-14.5); RDW Standard Deviation 48.1 fL (36.4-46.3); Red Blood Count 3.17 M/uL (4.2-5.4); White Blood Count 10.87 K/uL (4.8-10.8)
[2021-05-09 07:18] LABS: BUN Creatinine Ratio 5.1 (10-20); Blood Urea Nitrogen 3 mg/dl (7-18); Calcium 8.5 mg/dl (8.5-10.1); Carbon Dioxide 27 mmol/L (21-32); Chloride 109 mmol/L (98-107); Est GFR (African American) > 150.0 ml/min; Est GFR (Non-African American) 134.2 ml/min; Glucose 89 mg/dl (70-99); Potassium 3.6 mmol/L (3.5-5.1); Sodium 135 mmol/L (136-145)
--- NOTE | 2021-05-09 08:15 | Hospitalist Progress Note ---
Date of Service May 09, 2021 Assessment & Plan (1) Sickle cell disease: Plan: 21 yo M w/ pMHx. of sickle cell disease presents with upper respiratory symptoms, cough and pain in her back and knees along with nausea and vomiting. Pneumonia - CXR: Suspected minimal left lower lung opacity which may reflect an infectious process - CT A/P: Multifocal nodular airspace opacities within the lower lungs, which favor an infectious process. Cholelithiasis, no evidence for acute cholecystitis. Small amount of fluid within the pelvis. Bladder wall thickening which should be correlated with urinalysis to exclude cystitis. - Negative procalcitonin making viral PNA more likely but atypical organisms may present similarly and not necessarily cause elevated procal - started Vancomycin initially but stopped due to rash (unclear if allergic vs. red man syndrome) - Sputum culture pending, sputum gram stain without organisms - blood cultures NGTD - continue Azithromycin -- will switch to PO dosing at 500mg daily for 5 days total - Ceftriaxone discontinued - Albuterol PRN - encourage Incentive Spirometry Acute Pain Episode in Patient with Sickle Cell Disease Hb-SS disease with crisis - Per conversation with BRADEN Fish with hematology at [facility] ([phone]), they have found Dilaudid 0.01mg/kg q3h scheduled to be helpful dosing - then transition to q4h, then oral tramadol with wean over 2 days - Additionally, recommended calling [phone] if any questions overnight - 05/08 Ordered Dilaudid 0.5mg q3h scheduled as per discussion above - Wean to q4h today and reassess response later on today for possibility of transitioning to Tramadol tonight vs tomorrow - Continue to monitor pain response Diet: Regular DVT: Lovenox 40mg SQ daily Dispo: MedSurg w/ telemetry Code: FULL CODE (2) Pneumonia: (3) Asthma: Admission and Anticipated Discharge Date Admission Date: May 07, 2021 Supervising Physician Co-Signing Physician Notes Resident Physician Supervision Note: I independently interviewed and examined the patient and verified the knox history and physical, reviewed labs and image studies and agree with resident Dr. Medina findings and care plan. Subjective Patient seen at bedside this AM. Reporting that her pain is much better controlled, around 4-5/10. Initially asking to go home but then understands that we need to be a bit more conservative with weaning her pain management so it does not get worse. Otherwise denies fever, chills, cough, SOB. Review of Systems Review of Systems: Denies fever, chills, n/v, abd pain, chest pain, palp, SOB. Physical Exam Physical Exam: GENERAL: A&Ox3. NAD. HEENT: PERRL, EOMI. Moist mucous membranes. NECK: No JVD. No lymphadenopathy. CHEST/LUNGS: CTAB A/P. No crackles, wheezes, rales, ronchi. HEART: RRR. No m/g/r. No carotid bruits. ABDOMEN: NT/ND, soft. BS+ x4 EXTREMITIES: No cyanosis, no clubbing, no edema. Non-TTP at knees and lower back. SKIN: Warm and dry. No rashes or lesions. PSYCHIATRIC: Euthymic affect, no SI, no pressured speech, no hallucinations NEUROLOGIC: No FND. Results & Data Results & Data ([facility]) Vital Signs (Past 12 Hours) Vital Signs Temp Pulse Pulse Resp BP Pulse Ox 05/09/21 07:44 80 05/09/21 07:26 36.8 C 94 H 20 103/69 98 05/09/21 05:02 37.1 C 90 18 97/63 L 99 05/09/21 03:45 98/59 L 05/09/21 01:21 93 H 05/08/21 23:50 36.8 C 92 H 22 89/55 L 99 05/08/21 21:46 74 15 100 05/08/21 20:55 36.5 C 83 18 92/60 L 100 Resident Activity Tracking Resident Involvement: Resident Care Provided Care Provided: Adult Hospital Medicine (1) Sickle cell disease Sickle-cell associated disorders: with unspecified crisis Qualified Code(s): D57.00 - Hb-SS disease with crisis, unspecified (2) Pneumonia Laterality: unspecified laterality Lung location: unspecified part of lung Pneumonia type: due to unspecified organism Qualified Code(s): J18.9 - Pneumonia, unspecified organism
[2021-05-09] MEDS: FOLIC ACID 1 MG TAB PO SCH (08:16)
--- NOTE | 2021-05-09 08:31 | Medical Student Progress Note ---
Date of Service May 09, 2021 Assessment & Plan (1) Pneumonia: Laterality: unspecified laterality Lung location: unspecified part of lung Pneumonia type: due to unspecified organism Qualified Code(s): J18.9 - Pneumonia, unspecified organism (2) Sickle cell disease: Sickle-cell associated disorders: with unspecified crisis Qualified Code(s): D57.00 - Hb-SS disease with crisis, unspecified Plan: Summary: 21 y/o female with h/o SCD with CC of productive cough. Admitted for suspected bacteria PNA. Provided empiric IV Azithromycin and IV Ceftriaxone at admission. #1 PNA - Discontinue Ceftriaxone, given cultures at this point negative for bacteria - Continue Azithromycin for atypical organism coverage - Blood culture no growth to date - Sputum Culture pending, sputum gram stain negative for organisms - Urine culture had pinpoint growth present, re-incubating #2 Low back and Knee pain secondary to SCD - Continue Hydromorphone, adjust to q4H for 8 hrs - Will reassess her pain level this evening after 2nd Hydromorphone administration. Will consider transition to oral Tramadol per patient's pain level. #3 Asthma - Albuterol PRN #4 Allergies - Continue Cetirizine Diet: Regular DVT: Lovenox 40mg SQ daily Dispo: Discharge pending patient's condition and pain well controlled Code: FULL CODE Admission and Anticipated Discharge Date Admission Date: May 07, 2021 Subjective 21 y/o female with h/o SCD presents with productive cough and discomfort to her low back and BL knees. She was admitted with suspicion of community acquired PNA. She states she is doing well today and rates her pain as 6.5/10. States she is ready to return home. She is still having productive coughs but states no shortness of breath. She does not report any new pains in her body. Offers in the past she was provided tramadol to Tx discomfort secondary to her SCD. Her bowel movements are normal. Reports no burning with urination. Physical Exam Constitutional: NAD. Pleasant affect. Responding appropriately to questions. Eyes: No visible discharge from eyes. Respiratory: Lungs clear to auscultation BL. No wheezing, no rales. No labored breaths. Cardiovascular: RRR. No rubs, murmurs or gallops. Strong and equal radial and pedal pulses. Gastrointestinal (Abdomen): Soft, no distended, no pain with palpation. normal bowel movements. Musculoskeletal: She has sensation to both lower extremities. Skin: No lacerations, ecchymosis, erythema to her low back. Results & Data ([facility]) Vital Signs (Past 12 Hours) Vital Signs Temp Pulse Pulse Resp BP Pulse Ox 05/09/21 07:44 80 05/09/21 07:26 36.8 C 94 H 20 103/69 98 05/09/21 05:02 37.1 C 90 18 97/63 L 99 05/09/21 03:45 98/59 L 05/09/21 01:21 93 H 05/08/21 23:50 36.8 C 92 H 22 89/55 L 99 05/08/21 21:46 74 15 100 05/08/21 20:55 36.5 C 83 18 92/60 L 100 Hb - 9.6 g/dL Hct - 27% WBC - 10.87 K/uL Plt - 253 K/uL Na - 135 mmol/L K - 3.6 mmol/L Cl - 109 mmol/L HCO3 - 27 mmol/L BUN - 3 mg/dl Cr - .56 mg/dl Glucose - 89 mg/dl Laboratory Results Sputum Culture: Pending results Blood Culture: No growth at 24 hours Urine Culture: pinpoint growth Diagnostic Findings CXR and ABD CT: lower lung opacities Medications Administered Albuterol PRN Acetaminophen PRN Azithromycin 500 mg IV q24H Enoxaparin 40 mg SQ HS Hydromorphone 0.5 mg IVq4H
[2021-05-09] MEDS ORDERED: ERGOCALCIFEROL 50,000 UNITS 1250 MCG CAP PO SCH (09:00)
[2021-05-09] MEDS: ALBUTEROL 0.083% NEBU SOLN 3 ML VIAL NEB PRN (12:12)
[2021-05-09] MEDS: ACETAMINOPHEN 325 MG TAB PO PRN (12:57)
[2021-05-09] MEDS: D5W AND 1/2NSS 1,000 ML IV SCH (16:56)
[2021-05-09] MEDS: CETIRIZINE HCL 10 MG TABLET PO SCH (20:55)
[2021-05-09] MEDS: ENOXAPARIN INJ 40 MG/0.4 ML SYR SQ SCH (20:56)
[2021-05-09] MEDS ORDERED: KETOROLAC TROMETHAMINE 15 MG/ML VIAL IV ONE (22:02)
[2021-05-09] MEDS ORDERED: HYDROmorphone INJ 0.5 MG/0.5 ML SYR IV STA (22:03)
[2021-05-10] MEDS: HYDROmorphone INJ 0.5 MG/0.5 ML SYR IV SCH ×7 (00:14→19:55)
[2021-05-10] MEDS: D5W AND 1/2NSS 1,000 ML IV SCH ×3 (03:06→23:00)
[2021-05-10] MEDS ORDERED: HYDROmorphone INJ 0.5 MG/0.5 ML SYR IV STA (05:17)
[2021-05-10] MEDS ORDERED: KETOROLAC TROMETHAMINE 15 MG/ML VIAL IV ONE (05:50)
[2021-05-10 08:27] LABS: Basophils # (auto) 0.04 K/uL (0-0.2); Basophils % (auto) 0.5 %; Eosinophils # (auto) 0.47 K/uL (0-0.5); Eosinophils % (auto) 5.8 %; Hematocrit (blood only) 26.4 % (37-47); Hemoglobin 9.2 g/dL (12.0-16.0); Immature Granulocytes # (auto) 0.01 K/uL (0.00-0.02); Immature Granulocytes % (auto) 0.1 %; Lymphocytes # (auto) 2.47 K/uL (1.2-3.4); Lymphocytes % (auto) 30.5 %; Mean Corpuscular Hemoglobin 29.9 pg (25-34); Mean Corpuscular Hgb Conc 34.8 g/dL (32-36); Mean Corpuscular Volume 85.7 fL (80-100); Mean Platelet Volume 9.3 fL (7.4-10.4); Monocytes # (auto) 1.06 K/uL (0.11-0.59); Monocytes % (auto) 13.1 %; Neutrophils # (auto) 4.05 K/uL (1.4-6.5); Platelet Count 252 K/uL (130-400); RDW Coefficient of Variation 15.4 % (11.5-14.5); RDW Standard Deviation 48.2 fL (36.4-46.3); Red Blood Count 3.08 M/uL (4.2-5.4)
[2021-05-10 08:52] LABS: Blood Urea Nitrogen 4 mg/dl (7-18); Calcium 8.5 mg/dl (8.5-10.1); Carbon Dioxide 26 mmol/L (21-32); Chloride 109 mmol/L (98-107); Est GFR (African American) > 150.0 ml/min; Est GFR (Non-African American) 141.2 ml/min; Glucose 102 mg/dl (70-99); Potassium 3.6 mmol/L (3.5-5.1); Sodium 140 mmol/L (136-145)
[2021-05-10] MEDS: FOLIC ACID 1 MG TAB PO SCH (09:11)
[2021-05-10] MEDS: AZITHROMYCIN 250 MG TAB PO SCH (09:11)
--- NOTE | 2021-05-10 09:38 | Medical Student Progress Note ---
Date of Service May 10, 2021 Assessment & Plan (1) Sickle cell disease with crisis: (2) Pneumonia: Laterality: unspecified laterality Lung location: unspecified part of lung Pneumonia type: due to unspecified organism Qualified Code(s): J18.9 - Pneumonia, unspecified organism Plan: Summary: 21 y/o female with h/o SCD with CC of productive cough and low back/knee pain secondary to her SCD. Admitted for suspected bacteria PNA. Provided IV Azithromycin. Pt states eagerness to be discharged tomorrow. #1 PNA - Continue Azithromycin (day 3/5) for atypical organism coverage - Blood culture no growth to date - Sputum Culture positive for light normal alexi #2 Low back and Knee pain secondary to SCD - Adjusted to Hydromorphone, .25 mg q4H #3 ASx Bacteruria - Urine culture positive for Lactobacillus - Pt has no urinary Sx, ABx not warranted at this time #4 Asthma - Albuterol PRN #5 Allergies - Continue Cetirizine FEN: D5W+1/2NS @ 100 mls/hr Diet: Regular DVT Prophylaxis: Lovenox 40mg SQ daily Dispo: Discharge pending patient's condition and pain well controlled Code: FULL CODE Admission and Anticipated Discharge Date Admission Date: May 07, 2021 Subjective 21 y/o female with h/o of SCD, presents with CC of productive cough and low back/knee pain secondary to her SCD. Admitted for suspicion of PNA. Current Tx includes IV Aztihromycin and Hydromorphone for pain. She states her pain today is a 6/10. States she is generally doing better compared to when she was first admitted. She continues to have productive cough. States she continues to have low back and knee pain and adjusting the Hydromorphone to q4H did not provide adequate alleviation for her pain. Thinks the albuterol would help with her coughing but states it has not been given to her. Also has concerns that her heating pad is not working. She wants to try to get around and walk later today. She does not report any new pain related to her SCD. Physical Exam Constitutional: NAD. Pleasant affect. Responding appropriately to questions. Eyes: No visible discharge from her eyes. Respiratory: normal respiratory effort, lungs clear to auscultation normal respiratory effort Cardiovascular: RRR, no murmur, no edema Skin: No signs of ecchymosis, erythema or edema upon visual inspection to her low back. Psychiatric: AOx3 Results & Data ([facility]) Vital Signs (Past 12 Hours) Vital Signs Temp Pulse Resp BP Pulse Ox 05/10/21 07:59 36.8 C 80 20 95/61 L 98 05/10/21 05:00 36.6 C 87 18 93/56 L 97 05/09/21 22:00 36.8 C 81 18 113/76 98 Laboratory Results Hb - 9.2 g/dL Hct - 26.4% WBC - 8.10 K/uL Plt - 252 K/uL Na - 140 mmol/L K - 3.6 mmol/L Cl - 109 mmol/L HCO3 - 26 mmol/L BUN - 4 mg/dl Cr - .48 mg/dl Glucose - 102 mg/dl Diagnostic Findings Blood Culture negative at 48 hrs Urine Culture positive for Lactobacillus Sputum Culture positive light normal alexi Medications Administered Albuterol PRN Acetaminophen PRN Azithromycin 500 mg IV q24H Enoxaparin 40 mg SQ HS Hydromorphone 0.5 mg IVq4H
--- NOTE | 2021-05-10 10:11 | Hospitalist Progress Note ---
Date of Service May 10, 2021 Assessment & Plan (1) Sickle cell disease: Plan: 21 yo M w/ pMHx. of sickle cell disease presents with upper respiratory symptoms, cough and pain in her back and knees along with nausea and vomiting. Pneumonia - CXR: Suspected minimal left lower lung opacity which may reflect an infectious process - CT A/P: Multifocal nodular airspace opacities within the lower lungs, which favor an infectious process. Cholelithiasis, no evidence for acute cholecystitis. Small amount of fluid within the pelvis. Bladder wall thickening which should be correlated with urinalysis to exclude cystitis. - Negative procalcitonin making viral PNA more likely but atypical organisms may present similarly and not necessarily cause elevated procal - started Vancomycin initially but stopped due to rash (unclear if allergic vs. red man syndrome) - Sputum gram stain & culture showing light normal alexi - blood cultures NGTD at 48h - Ceftriaxone discontinued - continue Azithromycin 500mg PO daily for 5 days total (today is day 3/5) - Albuterol PRN - encourage Incentive Spirometry Acute Pain Episode in Patient with Sickle Cell Disease Hb-SS disease with crisis - Per conversation with BRADEN Fish with hematology at [facility] ([phone]), they have found Dilaudid 0.01mg/kg q3h scheduled to be helpful dosing - then transition to q4h, then oral tramadol with wean over 2 days - Additionally, recommended calling [phone] if any questions overnight - 05/08 Ordered Dilaudid 0.5mg q3h scheduled as per discussion above - 05/09: Wean to DIlaudid 0.5mg q4h -- did require two additional 0.25mg doses overnight - 05/10: Per discussion with patient she is eager to be discharged -- will wean to Dilaudid 0.25mg IV q4h - Plan to monitor overnight, if possible transition to Tramadol orally in AM - Continue to monitor pain response Asymptomatic Bacteriuria - Ucx with Lactobacillus and Gardnerella-like bacilli - Patient asymptomatic from urinary standpoint - No treatment indicated at this point Diet: Regular DVT: Lovenox 40mg SQ daily Dispo: MedSurg w/ telemetry Code: FULL CODE (2) Pneumonia: (3) Asthma: Admission and Anticipated Discharge Date Admission Date: May 07, 2021 Supervising Physician Co-Signing Physician Notes Resident Physician Supervision Note: I independently interviewed and examined the patient and verified the knox history and physical, reviewed labs and image studies and agree with resident Dr. Medina findings and care plan. Subjective Seen at bedisde this AM. She did need two doses of additional Dilaudid 0.25mg and Toradol 15mg overnight. This morning she feels overall well, and pain reasonably well-controlled. Somewhat sleepy. She is eager to return home [place] and prefers to attempt continued pain management wean. Denies fever, chills, SOB, cough, urinary symptoms. Review of Systems Review of Systems: Denies fever, chills, n/v, abd pain, chest pain, palp, SOB, urinary symptoms. Physical Exam Physical Exam: GENERAL: A&Ox3. NAD. HEENT: PERRL, EOMI. Moist mucous membranes. NECK: No JVD. No lymphadenopathy. CHEST/LUNGS: CTAB A/P. No crackles, wheezes, rales, rhonchi. HEART: RRR. No m/g/r. No carotid bruits. ABDOMEN: NT/ND, soft. BS+ x4 EXTREMITIES: No cyanosis, no clubbing, no edema. SKIN: Warm and dry. No rashes or lesions. PSYCHIATRIC: Euthymic affect, no SI, no pressured speech, no hallucinations NEUROLOGIC: No FND. Results & Data Results & Data ([facility]) Vital Signs (Past 12 Hours) Vital Signs Temp Pulse Resp BP Pulse Ox 05/10/21 07:59 36.8 C 80 20 95/61 L 98 05/10/21 05:00 36.6 C 87 18 93/56 L 97 Resident Activity Tracking Resident Involvement: Resident Care Provided Care Provided: Adult Hospital Medicine (1) Sickle cell disease Sickle-cell associated disorders: with unspecified crisis Qualified Code(s): D57.00 - Hb-SS disease with crisis, unspecified (2) Pneumonia Laterality: unspecified laterality Lung location: unspecified part of lung Pneumonia type: due to unspecified organism Qualified Code(s): J18.9 - Pneumonia, unspecified organism
[2021-05-10] MEDS: ALBUTEROL 0.083% NEBU SOLN 3 ML VIAL NEB PRN (13:42)
[2021-05-10] MEDS: ACETAMINOPHEN 325 MG TAB PO PRN (16:46)
[2021-05-10] MEDS: CETIRIZINE HCL 10 MG TABLET PO SCH (21:52)
[2021-05-10] MEDS: ENOXAPARIN INJ 40 MG/0.4 ML SYR SQ SCH ×2 (21:53→21:57)
[2021-05-11] MEDS: HYDROmorphone INJ 0.5 MG/0.5 ML SYR IV SCH ×2 (00:14→07:14)
[2021-05-11 03:30] VITALS: O2SAT 98
[2021-05-11] MEDS ORDERED: HYDROmorphone INJ 0.5 MG/0.5 ML SYR IV PRN (04:47)
[2021-05-11 07:15] VITALS: TEMP 98.2
[2021-05-11 07:19] LABS: Basophils # (auto) 0.04 K/uL (0-0.2); Basophils % (auto) 0.5 %; Eosinophils # (auto) 0.41 K/uL (0-0.5); Hematocrit (blood only) 29.2 % (37-47); Hemoglobin 10.5 g/dL (12.0-16.0); Immature Granulocytes # (auto) 0.02 K/uL (0.00-0.02); Immature Granulocytes % (auto) 0.2 %; Lymphocytes # (auto) 2.27 K/uL (1.2-3.4); Lymphocytes % (auto) 27.5 %; Mean Corpuscular Hemoglobin 29.9 pg (25-34); Mean Corpuscular Volume 83.2 fL (80-100); Mean Platelet Volume 9.2 fL (7.4-10.4); Monocytes # (auto) 0.96 K/uL (0.11-0.59); Monocytes % (auto) 11.6 %; Neutrophils # (auto) 4.55 K/uL (1.4-6.5); Neutrophils % (auto) 55.2 %; Nucleated RBC # (auto) 0.02 K/uL (0-0); Nucleated RBC % (auto) 0.2 %; Platelet Count 274 K/uL (130-400); RDW Coefficient of Variation 15.8 % (11.5-14.5); RDW Standard Deviation 47.7 fL (36.4-46.3); Red Blood Count 3.51 M/uL (4.2-5.4); White Blood Count 8.25 K/uL (4.8-10.8)
[2021-05-11 07:48] LABS: BUN Creatinine Ratio 6.1 (10-20); Blood Urea Nitrogen 4 mg/dl (7-18); Carbon Dioxide 27 mmol/L (21-32); Chloride 107 mmol/L (98-107); Creatinine Clr Calc Pharmacy 147.4 ml/min; Est GFR (African American) > 150.0 ml/min; Est GFR (Non-African American) 133.5 ml/min; Glucose 86 mg/dl (70-99); Potassium 3.7 mmol/L (3.5-5.1); Sodium 139 mmol/L (136-145)
[2021-05-11] MEDS: FOLIC ACID 1 MG TAB PO SCH (09:24)
[2021-05-11] MEDS: AZITHROMYCIN 250 MG TAB PO SCH (09:24)
--- NOTE | 2021-05-11 11:00 | Discharge Summary ---
Date of Service May 11, 2021 Admission HPI Per Admitting Provider Kaylan Armenta is a 21-year-old female with sickle cell anemia here with a cough and back pain. She has experienced 3 days of a cough and congestion. She has had pneumonia previously and felt that this was more mild but similar. She has had decreased oral intake and had vomited multiple times over the last couple days. She feels that her back and leg pain is similar to her prior pain crisis she has had. Her pain was as bad as 9/10, currently after pain medication in the ER is was 7/10. Patient is seen in guy with hematology and STEM CUTTER Symone available at #[phone] (unavailable overnight) I discussed her case with hematology resident at [facility] ([phone]) who brought up there common dosing schedule of 0.1 mg/kg dosing Q3H of Morphine along with Toradol Q6H (up to 20 total doses), and transitioning to Motrin and Tramadol on discharge. Social Hx.: denies tobacco use admits rare ETOH use denies rec. drug use Mother Candy # [phone] Father Karel # [phone] Principal Diagnosis Pneumonia, Acute pain episode in patient with sickle cell disease Discharge Exam GENERAL: A&Ox3. NAD. CHEST/LUNGS: CTAB A/P. No crackles, wheezes, rales, rhonchi. HEART: RRR. No m/g/r. No carotid bruits. ABDOMEN: NT/ND, soft. BS+ x4 SKIN: Warm and dry. No rashes or lesions. PSYCHIATRIC: Euthymic affect, no SI, no pressured speech, no hallucinations Discharge Data Allergies Allergy/AdvReac Type Severity Reaction Status Date / Time peanut Allergy Intermediate ITCHY HIVES Verified 05/07/21 19:16 Consultations 05/07/21 21:04 ED Decision to Admit Stat 05/07/21 21:25 ED Decision to Admit Stat Ordered Studies 05/07/21 20:00 CT abd pelvis IV con only Stat Hospital Course (1) Sickle cell disease: 21 yo M w/ pMHx. of sickle cell disease presents with upper respiratory symptoms, cough and pain in her back and knees along with nausea and vomiting. Pneumonia - CXR: Suspected minimal left lower lung opacity which may reflect an infectious process - CT A/P: Multifocal nodular airspace opacities within the lower lungs, which favor an infectious process. Cholelithiasis, no evidence for acute cholecystitis. Small amount of fluid within the pelvis. Bladder wall thickening which should be correlated with urinalysis to exclude cystitis. - Negative procalcitonin making viral PNA more likely but atypical organisms may present similarly and not necessarily cause elevated procal - Initially started on Vancomycin initially but stopped due to rash (unclear if allergic vs. red man syndrome) - Sputum gram stain & culture showing light normal alexi - blood cultures NGTD at 48h on day of DC - Ceftriaxone discontinued - continue Azithromycin 500mg PO daily for 5 days total -- received 4 days total in hospital, additional dose sent to preferred pharmacy at [place] Acute Pain Episode in Patient with Sickle Cell Disease Hb-SS disease with crisis - Per conversation with BRADEN Fish with hematology at [facility] ([phone]) -- have found Dilaudid 0.01mg/kg q3h scheduled to be helpful dosing - then transition to q4h, then oral tramadol to wean - Additionally, recommended calling [phone] if any questions overnight - 05/08 Ordered Dilaudid 0.5mg q3h scheduled as per discussion above - 05/09: Wean to DIlaudid 0.5mg q4h -- did require two additional 0.25mg doses overnight - 05/10: Per discussion with patient, eager to be DC'd -- weaned to Dilaudid 0.25mg q4h - 05/11: Patient reporting no pain in AM on day of DC -- Tramadol 50mg q6h prn sent to preferred pharmacy at [place] Asymptomatic Bacteriuria - Ucx with Lactobacillus and Gardnerella-like bacilli - Patient asymptomatic from urinary standpoint - No treatment indicated at this point Dispo: Home - self care (2) Pneumonia: (3) Asthma: Total Time Total Time Spent Total Time Spent (In Minutes): see attending attestation Discharge Plan Discharge Items Patient Disposition: Home - Self-Care Reason For Visit: PNEUMONIA, PAIN CRISIS Discharge Diagnosis: Pneumonia, Pain crisis Activity: Per Instructions section Non-emergency contact: Primary Care Provider Call non-emergency contact if: you have any medication questions and your pain is not controlled Follow-up/Referrals: [facility] [Primary Care Provider] - (PLEASE CONTACT [facility] TO SCHEDULE A FOLLOW-UP DISCHARGE APPOINTMENT WITHIN 7-10 DAYS.) Diet: Regular Addtl Attending Provider Instructions: You were admitted to [facility] due to pneumonia as well as pain in the setting of your sickle cell disease. You were treated initially with IV antibiotics for your pneumonia, which were eventually transitioned to oral. You will take azithromycin 500 mg for 1 additional dose tomorrow. This will complete your pneumonia treatment. For your pain, you were managed with IV Dilaudid, which was able to be weaned throughout your admission. At discharge, you will be prescribed Tramadol 50mg every 6 hours as needed. Please take this according to the medication instructions and only as needed. If you develop any worsening symptoms, such as fever, chills, nausea, vomiting, shortness of breath, worsening cough, or your pain becomes uncontrolled, please contact your primary care provider for further recommendations or return to the hospital for reevaluation. Pending Studies at Discharge: No Stand-Alone Forms: My [facility], Smoking Cessation Medications and DC Order Prescriptions: New azithromycin 250 mg Tablet 500 mg PO QAM 1 Days Qty: 2 RF: 0 tramadol 50 mg tablet 50 mg PO Q6H PRN (Reason: pain) Qty: 40 RF: 0 Continued folic acid 1 mg Tablet 1 mg PO QAM RF: 0 cetirizine 10 mg tablet 10 mg PO HS RF: 0 ergocalciferol (vitamin D2) 1,250 mcg (50,000 unit) capsule 50,000 unit PO WK RF: 0 ondansetron 4 mg tablet,disintegrating 4 - 8 mg PO Q8H PRN (Reason: nausea and vomiting) Qty: 14 RF: 0 Discontinued tramadol [Ultram] 50 mg tablet 50 mg PO Q8H PRN (Reason: pain) Qty: 14 RF: 0 Discharge Orders: Discharge Order (Routine); Ordered 05/11/21 Ordered By: Pola Ohara Admission Data Admit Date/Time: 05/07/21 22:12 Attending Provider: Miriam Monroy Admit Provider: Jose Ramon Alves Primary Care Provider: [facility] Other Providers: Madiha Rodriguez Other Interventions: Discharge Summary Assessment (RN) Last Done: 05/11/21 11:26 Supervising Physician Co-Signing Physician Notes Resident Physician Supervision Note: I independently interviewed and examined the patient and verified the knox history and physical, reviewed labs and image studies and agree with resident Dr. Medina findings and care plan. Resident Activity Tracking Resident Involvement: Resident Care Provided Care Provided: Adult [facility]
[2021-05-11 11:27] VITALS: BP 111/73; PULSE 78
== END 2021-05-11 12:24 | disposition home or self-care (01) | DRG 811 ==
LOC: ED 17:27 → 2N 22:12 → SUATTDRO 22:12 → 2N 23:20
DX: Z51.81 Encounter for therapeutic drug level monitoring; J45.909 Unspecified asthma, uncomplicated; T36.8X5A Adverse effect of other systemic antibiotics, initial encounter; Z79.899 Other long term (current) drug therapy; Z87.01 Personal history of pneumonia (recurrent); J12.9 Viral pneumonia, unspecified; L27.0 Generalized skin eruption due to drugs and medicaments taken internally; D72.829 Elevated white blood cell count, unspecified; Z91.010 Allergy to peanuts; D57.00 Hb-SS disease with crisis, unspecified; J18.9 Pneumonia, unspecified organism; R21 Rash and other nonspecific skin eruption; R82.71 Bacteriuria

== ENCOUNTER 2021-07-02 17:46 | Observation (INO) ==
[2021-07-02] MEDS ORDERED: ACETAMINOPHEN 1,000 MG/100 ML VIAL IV STA (18:30)
[2021-07-02] MEDS ORDERED: MoRPHine SULFATE 10 MG/ML CARP/VIAL IV STA ×2 (18:30→20:44)
[2021-07-02] MEDS ORDERED: SODIUM CHLORIDE 0.9% 1000ML 2,000 ML IV ONE (18:33)
[2021-07-02] MEDS ORDERED: MoRPHine SULFATE 2 MG/ML CARP ONE (18:43)
[2021-07-02] MEDS ORDERED: MoRPHine SULFATE 4 MG/ML 1 ML CARP\\VIAL ONE (18:43)
[2021-07-02] MEDS ORDERED: ONDANSETRON INJ 2 MG/ML 2 ML VIAL ONE (18:48)
[2021-07-02 18:50] LABS: Hematocrit (blood only) 33.2 % (37-47); Hemoglobin 11.9 g/dL (12.0-16.0); Mean Corpuscular Hemoglobin 30.6 pg (25-34); Mean Corpuscular Hgb Conc 35.8 g/dL (32-36); Mean Corpuscular Volume 85.3 fL (80-100); Mean Platelet Volume 9.1 fL (7.4-10.4); Nucleated RBC # (auto) 0.05 K/uL (0-0); Nucleated RBC % (auto) 0.4 %; Platelet Count 323 K/uL (130-400); RDW Standard Deviation 48.7 fL (36.4-46.3); Red Blood Count 3.89 M/uL (4.2-5.4); Reticulocyte % 6.7 % (0.5-2.0); Reticulocytes # 0.26 10^6/uL (0.02-0.10); White Blood Count 13.15 K/uL (4.8-10.8)
--- NOTE | 2021-07-02 18:59 | Emergency Department Note ---
Impression & Plan Influenza A, Sickle cell crisis, Intractable pain ED Provider Note NAME: SYMONE ASN AGE: 21 SEX: F ARRIVES VIA: Walk-In INFORMANT: Patient, ED PROVIDER(S): Armaan Godfrey MD CHIEF COMPLAINT: Sickle Cell Crisis. PLAN: Disposition: Admit MEDICAL DECISION MAKING: The patient is a pleasant 21-year-old woman with a past medical history of sickle cell disease with history of frequent sickle cell crises who presents to the emergency department with symptoms of crisis where she has diffuse body aches, joint pain and back pain that was most severe yesterday and continued into today. She denies any nausea or vomiting. She does report mild upper respiratory cough and congestion. She is vaccinated for COVID-19. She denies any known COVID-19 exposures. She reports her pain is 8/10. On arrival the patient is fatigued and uncomfortable no acute distress, afebrile, with HR in the 130s and otherwise stable vital signs. She has boggy nasal turbinates. Lungs are clear. Abdomen is benign. There is no joint edema, warmth or tenderness. She has full range of motion of all extremities. Neck is supple full range of motion. WBC 13K, nonspecific. H/H 11.9/33.2 similar to prior. Platelets within normal limits. Her reticulocyte count is elevated at 6.7%. Chemistry without metabolic acidosis. Electrolytes without significant abnormality. LFTs similar to prior baseline values with total bili 1.8 and direct bilirubin 0.4 with LFTs otherwise unremarkable. Lipase is not elevated. Troponin negative/undetectable. Procalcitonin is undetectable. COVID-19 PCR was negative. Influenza PCR was positive for influenza A. Given the patient's sickle cell crisis in the setting of influenza a infection patient is in agr eement with plan for admission. She was ordered for Tamiflu in addition to IV fluid hydration and analgesia on arrival. Per the patient's request I did contact [facility] wh ere she follows for sickle cell disease. Appreciate recommendations from Dr. Kal Ramey, to continue morphine as needed for pain but would add Toradol as well 15 mg every 6 hours with GI protection with famotidine. Recommend maintenance fluid with D5 half-normal saline. Given the patient's influenza a positive no indication for antibiotics at this time however if she were to spike a fever at that time she recommends repeating blood cultures and empiric ceftriaxone or Levaquin. Additionally, recommends incentive spirometer and bowel regimen. Case was discussed with Dr. Rodriguez, [facility] hospitalist, who will evaluate the patient for admission. Triage Nursing notes reviewed and agree them. Prior medical records reviewed Vital Signs: reviewed and remarkable for tachycardia. Differential diagnosis: Viral syndrome, otitis, pharyngitis, pneumonia, influenza, meningitis, urinary tract infection, sepsis, bacteremia, as well as other pathologies. ER treatment provided: See below. Diagnostics interpreted by me: ECG: NSR, 98 bpm, no ectopy, nonspecific TWA, no overt ST elevation or depression. Cardiac Monitoring: An order for continuous cardiac monitoring was placed and demonstrated NSR, 98 bpm, no ectopy Laboratory studies: See below Imaging studies: See below Consultation(s): Dr. Kal Ramey, Hematology, [facility]. Dr. Rodriguez, [facility] hospitalist, who will evaluate the patient for admission. HPI: The patient is a pleasant 21-year-old woman with a past medical history of sickle cell disease with history of frequent sickle cell crises who presents to the emergency department with symptoms of crisis where she has diffuse body aches, joint pain and back pain that was most severe yesterday and continued into today. She denies any nausea or vomiting. She does report mild upper resp iratory cough and congestion. She is vaccinated for COVID-19. She denies any known COVID-19 exposures. She reports her pain is 8/10. ROS: See above HPI for pertinent positives & negatives. A total of 10 systems reviewed and were otherwise negative. PAST MEDICAL HISTORY:See Below PAST SURGICAL HISTORY:See Below FAMILY HISTORY:See Below SOCIAL HISTORY:See Below HOME MEDICATIONS:See Below ALLERGIES:See Below VITALS:See Below PHYSICAL EXAMINATION: GENERAL: Awake, alert, uncomfortable-appearing, in no distress HENT: Normocephalic, atraumatic. Oropharynx with dry mucous membranes and otherwise unremarkable. EYES: Normal conjunctiva. Sclera non-icteric. NECK: Supple. No nuchal rigidity. FROM. No JVD. RESPIRATORY: Clear to auscultation. CARDIAC: Tachycardic rate, normal rhythm. Extremities warm and well perfused. Pulses equal. ABDOMEN: Soft, non-distended. No tenderness to palpation. No rebound or guarding. No masses. RECTAL: Deferred. MUSCULOSKELETAL: Chest examination reveals no tenderness. The back is symmetrical on inspection without obvious abnormality. There is no CVA tenderness to palpation. No joint edema. LOWER EXTREMITIES: Calves are equal size bilaterally and non-tender. No edema. No discoloration. NEURO: Normal sensorium. No sensory or motor deficits noted. SKIN: No rash or jaundice noted. 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 Other Information That Helps Us Care for You: No Feels Safe at Home: Yes Safety Concerns: Feels Safe At This Time Assistive Devices: Glasses Allergies Allergies Allergy/AdvReac Type Severity Reaction Status Date / Time peanut Allergy Intermediate ITCHY HIVES Verified 07/02/21 18:36 Home Meds Home Medications Medication Instructions Recorded Confirmed folic acid 1 mg tablet 1 mg PO HS 07/22/19 07/02/21 cetirizine 10 mg tablet 10 mg PO HS 04/18/20 07/02/21 ergocalciferol (vitamin D2) 1,250 50,000 unit PO WK 04/18/20 07/02/21 mcg (50,000 unit) capsule sertraline 25 mg tablet 50 mg PO HS 07/02/21 07/02/21 Previous Rx's Medication Instructions Recorded ondansetron 4 mg disintegrating 4 - 8 mg PO Q8H PRN #14 tab 02/28/21 tablet tramadol 50 mg tablet 50 mg PO Q6H PRN #40 tab 05/11/21 Results & Data (ED) Vital Signs Vital Signs - 24 hr 07/02/21 18:12 07/02/21 18:55 07/02/21 19:30 Temperature 37.4 C Temperature Source Temporal Artery Scan Pulse Rate 137 H Pulse Rate [Apical] 96 H Respiratory Rate 20 20 Respiratory Effort / Characteristics Non-Labored Spontaneous Non-Labored Spontaneous Respiratory Depth Normal Normal Respiratory Pattern Regular Blood Pressure 115/68 Blood Pressure [Right Arm] 126/72 Blood Pressure Mean 83 Blood Pressure Mean [Right Arm] 90 Blood Pressure Position Sitting Pulse Oximetry 99 100 Oxygen Delivery Method Room Air Room Air Room Air Sepsis Recent Fever Within 48 Hours No Sepsis New/Unexplained Change in Mental Status No Sepsis Action Taken by Nursing No Action Required 07/02/21 21:30 Temperature Temperature Source Pulse Rate Pulse Rate [Apical] 96 H Respiratory Rate 20 Respiratory Effort / Characteristics Non-Labored Spontaneous Respiratory Depth Normal Respiratory Pattern Blood Pressure Blood Pressure [Right Arm] 118/75 Blood Pressure Mean Blood Pressure Mean [Right Arm] 89 Blood Pressure Position Pulse Oximetry 100 Oxygen Delivery Method Room Air Sepsis Recent Fever Within 48 Hours Sepsis New/Unexplained Change in Mental Status Sepsis Action Taken by Nursing Laboratory Data Attestation: I reviewed the patient's lab results. Result diagrams: 07/02/21 18:35 07/02/21 18:35 Lab Results 07/02/21 07/02/21 07/02/21 Range/Units 18:35 18:35 18:35 WBC 13.15 H (4.8-10.8) K/uL RBC 3.89 L (4.2-5.4) M/uL Hgb 11.9 L (12.0-16.0) g/dL Hct 33.2 L (37-47) % MCV 85.3 (80-100) fL MCH 30.6 (25-34) pg MCHC 35.8 (32-36) g/dL RDW Std Deviation 48.7 H (36.4-46.3) fL RDW Coeff of Kashif 16.0 H (11.5-14.5) % Plt Count 323 (130-400) K/uL MPV 9.1 (7.4-10.4) fL Immature Gran % (Auto) 0.3 % Neut % (Auto) 80.7 % Lymph % (Auto) 9.8 % Rosebud % (Auto) 6.5 % Eos % (Auto) 2.3 % Baso % (Auto) 0.4 % Reticulocyte % (Auto) 6.7 H (0.5-2.0) % Neut # (Auto) 10.61 H (1.4-6.5) K/uL Lymph # (Auto) 1.29 (1.2-3.4) K/uL Rosebud # (Auto) 0.86 H (0.11-0.59) K/uL Eos # (Auto) 0.30 (0-0.5) K/uL Baso # (Auto) 0.05 (0-0.2) K/uL Reticulocyte # 0.26 H (0.02-0.10) 10^6/uL Immature Gran # (Auto) 0.04 H (0.00-0.02) K/uL Absolute Nucleated RBC 0.05 H (0-0) K/uL Nucleated RBC % (auto) 0.4 % Polychromasia 1+ Hypochromasia Present Target Cells 2+ PT (9.0-12.0) Seconds INR (0.9-1.1) APTT (21.0-31.0) Seconds PTT Ratio Sodium 139 (136-145) mmol/L Potassium 4.0 (3.5-5.1) mmol/L Chloride 108 H (98-107) mmol/L Carbon Dioxide 23 (21-32) mmol/L Anion Gap 8.0 (3-11) BUN 7 (7-18) mg/dl Creatinine 0.66 (0.6-1.2) mg/dl Est Cr Clr Drug Dosing 108.2 ml/min Est GFR ( Amer) 147.4 ml/min Est GFR (Non-Af Amer) 127.2 ml/min BUN/Creatinine Ratio 10.3 (10-20) Glucose 90 (70-99) mg/dl Lactate (0.4-2.0) mmol/L Calcium 8.9 (8.5-10.1) mg/dl Phosphorus 3.6 (2.5-4.9) mg/dl Magnesium 2.0 (1.8-2.4) mg/dl Total Bilirubin 1.8 H (0.2-1) mg/dl Direct Bilirubin 0.4 H (0-0.2) mg/dl AST 15 (15-37) U/L ALT 15 (12-78) U/L Alkaline Phosphatase 55 (45-117) U/L Troponin I < 0.015 (0-0.045) ng/ml Total Protein 7.3 (6.4-8.2) gm/dl Albumin 3.9 (3.4-5.0) gm/dl Globulin 3.4 (2.5-4.0) gm/dl Albumin/Globulin Ratio 1.1 (0.9-2) Lipase 73 (73-393) U/L Procalcitonin < 0.05 (0-0.5) ng/ml 07/02/21 07/02/21 07/02/21 Range/Units 18:35 19:10 19:14 WBC (4.8-10.8) K/uL RBC (4.2-5.4) M/uL Hgb (12.0-16.0) g/dL Hct (37-47) % MCV (80-100) fL MCH (25-34) pg MCHC (32-36) g/dL RDW Std Deviation (36.4-46.3) fL RDW Coeff of Kashif (11.5-14.5) % Plt Count (130-400) K/uL MPV (7.4-10.4) fL Immature Gran % (Auto) % Neut % (Auto) % Lymph % (Auto) % Rosebud % (Auto) % Eos % (Auto) % Baso % (Auto) % Reticulocyte % (Auto) Cancelled (0.5-2.0) % Neut # (Auto) (1.4-6.5) K/uL Lymph # (Auto) (1.2-3.4) K/uL Rosebud # (Auto) (0.11-0.59) K/uL Eos # (Auto) (0-0.5) K/uL Baso # (Auto) (0-0.2) K/uL Reticulocyte # Cancelled (0.02-0.10) 10^6/uL Immature Gran # (Auto) (0.00-0.02) K/uL Absolute Nucleated RBC (0-0) K/uL Nucleated RBC % (auto) % Polychromasia Hypochromasia Target Cells PT 11.3 (9.0-12.0) Seconds INR 1.1 (0.9-1.1) APTT 25.1 (21.0-31.0) Seconds PTT Ratio 1.0 Sodium (136-145) mmol/L Potassium (3.5-5.1) mmol/L Chloride (98-107) mmol/L Carbon Dioxide (21-32) mmol/L Anion Gap (3-11) BUN (7-18) mg/dl Creatinine (0.6-1.2) mg/dl Est Cr Clr Drug Dosing ml/min Est GFR ( Amer) ml/min Est GFR (Non-Af Amer) ml/min BUN/Creatinine Ratio (10-20) Glucose (70-99) mg/dl Lactate 0.4 (0.4-2.0) mmol/L Calcium (8.5-10.1) mg/dl Phosphorus (2.5-4.9) mg/dl Magnesium (1.8-2.4) mg/dl Total Bilirubin (0.2-1) mg/dl Direct Bilirubin (0-0.2) mg/dl AST (15-37) U/L ALT (12-78) U/L Alkaline Phosphatase (45-117) U/L Troponin I (0-0.045) ng/ml Total Protein (6.4-8.2) gm/dl Albumin (3.4-5.0) gm/dl Globulin (2.5-4.0) gm/dl Albumin/Globulin Ratio (0.9-2) Lipase (73-393) U/L Procalcitonin (0-0.5) ng/ml Administered Medications Folic Acid (Folic Acid 1 Mg Tab) 1 mg PO HS ROBYN Stop: 08/02/21 20:59 Last Admin: 07/03/21 00:27 Dose: 1 mg Documented by: [id number] Hydromorphone HCl (Hydromorphone Inj 0.5 Mg/0.5 Ml Syr) 0.5 mg IV Q3H ROBYN Stop: 07/17/21 00:01 Last Admin: 07/03/21 03:12 Dose: 0.5 mg Documented by: [id number] Admin: 07/03/21 00:25 Dose: 0.5 mg Documented by: [id number] Sodium Chloride (1/2 Nss) 1,000 mls @ 250 mls/hr IV .Q4H ROBYN Stop: 08/02/21 00:01 Last Admin: 07/03/21 04:09 Dose: 250 mls/hr Documented by: [id number] Infusion: 07/03/21 04:09 Dose: 250 mls/hr Documented by: [id number] Admin: 07/03/21 00:27 Dose: 250 mls/hr Documented by: [id number] Ketorolac Tromethamine (Ketorolac Tromethamine 15 Mg/Ml Vial) 15 mg IV Q6 ROBYN Stop: 07/08/21 00:01 Last Admin: 07/03/21 00:26 Dose: 15 mg Documented by: [id number] Sertraline HCl (Sertraline Hcl 50 Mg Tablet) 50 mg PO HS ROBYN Stop: 08/02/21 20:59 Last Admin: 07/03/21 00:27 Dose: 50 mg Documented by: [id number] Discontinued Medications Cetirizine HCl (Cetirizine Hcl 10 Mg Tablet) 10 mg PO NOW ONE Stop: 07/02/21 20:20 Last Admin: 07/02/21 20:38 Dose: 10 mg Documented by: [id number] Hydromorphone HCl (Hydromorphone Inj 0.5 Mg/0.5 Ml Syr) 0.5 mg IV NOW STA Stop: 07/02/21 22:41 Last Admin: 07/02/21 22:51 Dose: 0.5 mg Documented by: [id number] Acetaminophen (Ofirmev) 1,000 mg in 100 mls @ 400 mls/hr IV NOW STA Stop: 07/02/21 18:44 Last Infusion: 07/02/21 19:12 Dose: 0 mls/hr Documented by: [id number] Admin: 07/02/21 18:57 Dose: 400 mls/hr Documented by: [id number] Sodium Chloride (Nss 1000ml) 2,000 mls @ 999 mls/hr IV .Q2H1M ONE Stop: 07/02/21 20:33 Last Infusion: 07/02/21 21:00 Dose: 0 mls/hr Documented by: [id number] Admin: 07/02/21 18:57 Dose: 999 mls/hr Documented by: [id number] Morphine Sulfate (Morphine Sulfate 10 Mg/Ml Carp/Vial) 6 mg IV NOW STA Stop: 07/02/21 18:31 Last Admin: 07/02/21 18:57 Dose: Not Given Documented by: [id number] Morphine Sulfate (Morphine Sulfate 2 Mg/Ml Carp) Confirm Administered Dose 2 mg .ROUTE .STK-MED ONE Stop: 07/02/21 18:44 Last Admin: 07/02/21 18:57 Dose: 2 mg Documented by: [id number] Morphine Sulfate (Morphine Sulfate 4 Mg/Ml 1 Ml Carp\Vial) Confirm Administered Dose 4 mg .ROUTE .STK-MED ONE Stop: 07/02/21 18:44 Last Admin: 07/02/21 18:57 Dose: 4 mg Documented by: [id number] Morphine Sulfate (Morphine Sulfate 10 Mg/Ml Carp/Vial) 6 mg IV NOW STA Stop: 07/02/21 20:45 Last Admin: 07/02/21 20:55 Dose: 6 mg Documented by: [id number] Ondansetron HCl (Ondansetron Inj 2 Mg/Ml 2 Ml Vial) Confirm Administered Dose 4 mg .ROUTE .STK-MED ONE Stop: 07/02/21 18:49 Last Admin: 07/02/21 18:57 Dose: 4 mg Documented by: [id number] Oseltamivir Phosphate (Oseltamivir Phosphate 75 Mg Cap) 75 mg PO NOW STA; Protocol Stop: 07/02/21 21:12 Last Admin: 07/02/21 21:25 Dose: 75 mg Documented by: [id number] Imaging Data Radiologist's Impression: Chest X-Ray 07/02/21 18:32 XR chest 1V portable HISTORY: Atypical Chest Pain COMPARISON: Chest 05/07/2021. FINDINGS: The lungs are clear. Cardiac silhouette is normal in size. No pleural effusions. No pneumothorax. IMPRESSION: No acute process. ACT 112: Negative or not required by law. Electronically signed by: Vitor Waite M.D. 07/02/2021 7:28 PM Discharge Plan Visit Data Chief Complaint: Illness Stated Complaint: SICKLE CELL PAIN CRISIS ED Provider: Armaan Godfrey Discharge Problem: Influenza A, Sickle cell crisis, Intractable pain Patient Disposition: Admitted As Inpatient Discharge Instructions Interventions: ED Discharge Assessment Last Done: 07/02/21 23:37
[2021-07-02 19:09] LABS: Alanine Aminotransferase 15 U/L (12-78); Albumin Level 3.9 gm/dl (3.4-5.0); Aspartate Aminotransferase 15 U/L (15-37); BUN Creatinine Ratio 10.3 (10-20); Bilirubin Direct 0.4 mg/dl (0-0.2); Blood Urea Nitrogen 7 mg/dl (7-18); Calcium 8.9 mg/dl (8.5-10.1); Carbon Dioxide 23 mmol/L (21-32); Chloride 108 mmol/L (98-107); Creatinine Clr Calc Pharmacy 108.2 ml/min; Est GFR (African American) 147.4 ml/min; Est GFR (Non-African American) 127.2 ml/min; Glucose 90 mg/dl (70-99); Lipase 73 U/L (73-393); Sodium 139 mmol/L (136-145)
[2021-07-02 19:12] LABS: Albumin Globulin Ratio 1.1 (0.9-2); Alkaline Phosphatase 55 U/L (45-117); Bilirubin,Total 1.8 mg/dl (0.2-1); Globulin 3.4 gm/dl (2.5-4.0); Phosphorus 3.6 mg/dl (2.5-4.9); Total Protein 7.3 gm/dl (6.4-8.2); Troponin I < 0.015 ng/ml (0-0.045)
--- NOTE | 2021-07-02 19:30 | XRay Report ---
XR chest 1V portable HISTORY: Atypical Chest Pain COMPARISON: Chest 05/07/2021. FINDINGS: The lungs are clear. Cardiac silhouette is normal in size. No pleural effusions. No pneumot horax. IMPRESSION: No acute process. ACT 112: Negative or not required by law. Electronically signed by: Vitor Waite M.D. 07/02/2021 7:28 PM
[2021-07-02 19:33] LABS: Basophils # (auto) 0.05 K/uL (0-0.2); Basophils % (auto) 0.4 %; Eosinophils % (auto) 2.3 %; Hypochromasia Present; Immature Granulocytes # (auto) 0.04 K/uL (0.00-0.02); Immature Granulocytes % (auto) 0.3 %; Lymphocytes # (auto) 1.29 K/uL (1.2-3.4); Lymphocytes % (auto) 9.8 %; Monocytes # (auto) 0.86 K/uL (0.11-0.59); Monocytes % (auto) 6.5 %; Neutrophils # (auto) 10.61 K/uL (1.4-6.5); Neutrophils % (auto) 80.7 %; Polychromasia 1+; Target Cells 2+
[2021-07-02 19:38] LABS: INR 1.1 (0.9-1.1); Partial Thromboplastin Time 25.1 Seconds (21.0-31.0); Prothrombin Time 11.3 Seconds (9.0-12.0)
[2021-07-02] MEDS ORDERED: CETIRIZINE HCL 10 MG TABLET PO ONE (20:19)
[2021-07-02 20:53] LABS: Influenza A virus by PCR Positive (Negative); Influenza B virus by PCR Negative (Negative)
[2021-07-02] MEDS ORDERED: OSELTAMIVIR PHOSPHATE 75 MG CAP PO STA (21:11)
--- NOTE | 2021-07-02 22:20 | History & Physical Report ---
Date of Service July 02, 2021 Assessment & Plan (1) Sickle cell crisis: Plan: 1) Sickle cell pain crisis -Similar in nature to previous crises, low concern for infection/acute chest given clear CXR, afebrile, minor elevated WBC 13 -Hgb stable 11.9- appears to be higher end of her baseline. Transfuse if Hgb < 7 -Pain management as follows given previous effective regimens at [facility]- Dilaudid 0.5 mg q3h, Toradol 15 mg q6h. Wean Dilaudid and plan to discharge on Tramadol 50 mg q6h PRN -Supplemental O2 ordered, O2 saturation 90+% on RA currently -1/2 NSS at 250 ml/hr -Trend CBC, BMP, LFTs 2) Influenza -Influenza A positive. COVID negative. Clear CXR. -Given Tamiflu in ED despite symptoms persisting 48+ hours -Supportive care- IVF, tylenol PRN, O2 3) Direct hyperbilirubinemia -Total 1.8, direct 0.4 -Noted to have cholelithiasis from CT last admission 04/2021 -Low suspicion for acute hepatic/cholestatic process at this time -Consider abdominal ultrasound -Trend LFTs FENGI: Regular diet Code status: Full DVT ppx: SCDs Isolation: none Dispo: Med/Surg, home after pain resolved (2) Influenza: (3) Total bilirubin, elevated: History of Present Illness Chief Complaint: Generalized pain Primary Care Provider: [facility] 21 yo F with PMH sickle cell disease and multiple hospitalizations for acute pain crises and acute chest (recent [facility] admission in April 2021 for acute chest) admitted for generalized pain Last week pt began to experience general respiratory symptoms of congestion, runny nose, sneezing. Symptoms improved over course of week. Yesterday pt suddenly began experiencing generalized pain and fatigue in the morning- 9/10 severity, diffuse, cyclical nature. Pain continued throughout day and she came to ED due to its persistence. Pain diffuse but most intense in back and abdomen. No associated chest pain, dyspnea, fever, chills, nausea/vomiting, diarrhea. COVID vaccinated, up to date on other vaccines but did not get flu shot this year. Does not take any regular medication other than folic acid. 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 States morphine does not usually help her but dilaudid and tramadol do, which is consistent with chart review. Denies any other symptoms. Allergies Allergy/AdvReac Type Severity Reaction Status Date / Time peanut Allergy Intermediate ITCHY HIVES Verified 07/02/21 18:36 Home Medications Medication Instructions Recorded Confirmed Type folic acid 1 mg tablet 1 mg PO HS 07/22/19 07/02/21 History cetirizine 10 mg tablet 10 mg PO HS 04/18/20 07/02/21 History ergocalciferol (vitamin D2) 1,250 50,000 unit PO WK 04/18/20 07/02/21 History mcg (50,000 unit) capsule ondansetron 4 mg disintegrating 4 - 8 mg PO Q8H PRN #14 tab 02/28/21 07/02/21 Rx tablet tramadol 50 mg tablet 50 mg PO Q6H PRN #40 tab 05/11/21 07/02/21 Rx sertraline 25 mg tablet 50 mg PO HS 07/02/21 07/02/21 History Past Med/Surg History Medical History (Updated 07/03/21 @ 04:33 by Madiha Rodriguez DO) Asthma Leukocytosis Pneumonia Sepsis Sickle cell anemia Splenomegaly Surgical History No pertinent past surgical history Family History Other No significant family history Social History Smoking Status: Never smoker Second Hand Exposure: No; Do You Dip or Chew Tobacco: No; Hx Alcohol Use: No Hx Substance Use: No Preferred Language: Iraqi Communication Ability: Effective Hand Laminator Required: No Beliefs That Will Affect Care: None marital status: Single Current Living Situation: Other Current Living Situation Comment: 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 Other Information That Helps Us Care for You: No Feels Safe at Home: Yes Safety Concerns: Feels Safe At This Time Assistive Devices: Glasses Review of Systems Review of Systems: Per HPI Physical Exam Physical Exam: General: well-appearing, laying in bed, no acute distress HEENT: anicteric sclerae, no lymphadenopathy, moist mucous membranes CV: RRR, normal S1 and S2, no murmurs noted Resp: CTAB, unlabored respirations, no accessory muscle use Abdomen: minor tenderness of RUQ, soft, nondistended, no hepatosplenomegaly Skin: no pallor or jaundice, no erythema Extremities: no peripheral edema, cap refill <2s, warm and dry, distal pulses +2 Neuro: AOx3, no gross focal motor deficits, no sensory deficits Results & Data Results & Data ([facility]) Vital Signs (Past 12 Hours) Vital Signs Temp Pulse Pulse Resp BP BP Pulse Ox 07/02/21 21:30 96 H 20 118/75 100 07/02/21 19:30 96 H 20 126/72 100 07/02/21 18:12 37.4 C 137 H 20 115/68 99 Laboratory Results Laboratory Results WBC 13.15 K/uL (4.8-10.8) H 07/02/21 18:35 RBC 3.89 M/uL (4.2-5.4) L 07/02/21 18:35 Hgb 11.9 g/dL (12.0-16.0) L 07/02/21 18:35 Hct 33.2 % (37-47) L 07/02/21 18:35 MCV 85.3 fL (80-100) 07/02/21 18:35 MCH 30.6 pg (25-34) 07/02/21 18:35 MCHC 35.8 g/dL (32-36) 07/02/21 18:35 RDW Std Deviation 48.7 fL (36.4-46.3) H 07/02/21 18:35 RDW Coeff of Kashif 16.0 % (11.5-14.5) H 07/02/21 18:35 Plt Count 323 K/uL (130-400) 07/02/21 18:35 MPV 9.1 fL (7.4-10.4) 07/02/21 18:35 Immature Gran % (Auto) 0.3 % 07/02/21 18:35 Neut % (Auto) 80.7 % 07/02/21 18:35 Lymph % (Auto) 9.8 % 07/02/21 18:35 [place] % (Auto) 6.5 % 07/02/21 18:35 Eos % (Auto) 2.3 % 07/02/21 18:35 Baso % (Auto) 0.4 % 07/02/21 18:35 Reticulocyte % (Auto) 6.7 % (0.5-2.0) H 07/02/21 18:35 Reticulocyte % (Auto) Cancelled 07/02/21 18:35 Neut # (Auto) 10.61 K/uL (1.4-6.5) H 07/02/21 18:35 Lymph # (Auto) 1.29 K/uL (1.2-3.4) 07/02/21 18:35 [place] # (Auto) 0.86 K/uL (0.11-0.59) H 07/02/21 18:35 Eos # (Auto) 0.30 K/uL (0-0.5) 07/02/21 18:35 Baso # (Auto) 0.05 K/uL (0-0.2) 07/02/21 18:35 Reticulocyte # 0.26 10^6/uL (0.02-0.10) H 07/02/21 18:35 Reticulocyte # Cancelled 07/02/21 18:35 Immature Gran # (Auto) 0.04 K/uL (0.00-0.02) H 07/02/21 18:35 Absolute Nucleated RBC 0.05 K/uL (0-0) H 07/02/21 18:35 Nucleated RBC % (auto) 0.4 % 07/02/21 18:35 Polychromasia 1+ 07/02/21 18:35 Hypochromasia Present 07/02/21 18:35 Target Cells 2+ 07/02/21 18:35 PT 11.3 Seconds (9.0-12.0) 07/02/21 19:10 INR 1.1 (0.9-1.1) 07/02/21 19:10 APTT 25.1 Seconds (21.0-31.0) 07/02/21 19:10 PTT Ratio 1.0 07/02/21 19:10 Sodium 139 mmol/L (136-145) 07/02/21 18:35 Potassium 4.0 mmol/L (3.5-5.1) 07/02/21 18:35 Chloride 108 mmol/L (98-107) H 07/02/21 18:35 Carbon Dioxide 23 mmol/L (21-32) 07/02/21 18:35 Anion Gap 8.0 (3-11) 07/02/21 18:35 BUN 7 mg/dl (7-18) 07/02/21 18:35 Creatinine 0.66 mg/dl (0.6-1.2) 07/02/21 18:35 Est Cr Clr Drug Dosing 108.2 ml/min 07/02/21 18:35 Est GFR ( Amer) 147.4 ml/min 07/02/21 18:35 Est GFR (Non-Af Amer) 127.2 ml/min 07/02/21 18:35 BUN/Creatinine Ratio 10.3 (10-20) 07/02/21 18:35 Glucose 90 mg/dl (70-99) 07/02/21 18:35 Lactate 0.4 mmol/L (0.4-2.0) 07/02/21 19:14 Calcium 8.9 mg/dl (8.5-10.1) 07/02/21 18:35 Phosphorus 3.6 mg/dl (2.5-4.9) 07/02/21 18:35 Magnesium 2.0 mg/dl (1.8-2.4) 07/02/21 18:35 Total Bilirubin 1.8 mg/dl (0.2-1) H 07/02/21 18:35 Direct Bilirubin 0.4 mg/dl (0-0.2) H 07/02/21 18:35 AST 15 U/L (15-37) 07/02/21 18:35 ALT 15 U/L (12-78) 07/02/21 18:35 Alkaline Phosphatase 55 U/L (45-117) 07/02/21 18:35 Troponin I < 0.015 ng/ml (0-0.045) 07/02/21 18:35 Total Protein 7.3 gm/dl (6.4-8.2) 07/02/21 18:35 Albumin 3.9 gm/dl (3.4-5.0) 07/02/21 18:35 Globulin 3.4 gm/dl (2.5-4.0) 07/02/21 18:35 Albumin/Globulin Ratio 1.1 (0.9-2) 07/02/21 18:35 Lipase 73 U/L (73-393) 07/02/21 18:35 Procalcitonin < 0.05 ng/ml (0-0.5) 07/02/21 18:35 COVID-19 Eval Order Covid19 at [facility] 07/02/21 Unknown SARS-CoV-2 (PCR) NEGATIVE (Negative) 07/02/21 Unknown Influ A Molecular Assay Positive (Negative) A* 07/02/21 Unknown Influ B Molecular Assay Negative (Negative) 07/02/21 Unknown Impressions Chest X-Ray 07/02/21 18:32 XR chest 1V portable HISTORY: Atypical Chest Pain COMPARISON: Chest 05/07/2021. FINDINGS: The lungs are clear. Cardiac silhouette is normal in size. No pleural effusions. No pneumothorax. IMPRESSION: No acute process. ACT 112: Negative or not required by law. Electronically signed by: Vitor Waite M.D. 07/02/2021 7:28 PM Supervising Physician Co-Signing Physician Notes Patient seen and examined, chart reviewed, case discussed with Dr. Cuenca and I agree with the assessment and plan as documented above. In brief, patient is a 21yo AA female with SSA presenting with acute pain crisis as well as influenza A. Patient is afebrile, HD stable, no concern for ACS at this time. Pain is improved with Diluadid. Exam - patient uncomfortable, NAD Skin - warm, dry, intact, no rashes/lesions HEENT - NC/AT, PERRL, MMM Heart - +S1/S2, regular, no m/r/g Lungs - CTA Abd- tender in RUQ and RLQ, no rebound/guarding/peritoneal signs Ext - No edema Labs and images reviewed Assessment/Plan Management of pain crisis - Dilaudid and Toradol. IVF and supplemental O2 Symptomatic management for influenza. Patient states her flu symptoms are improving Repeat LFTs in AM - if persistently elevated bilirubin and RUQ discomfort would pursue imaging - patient with history of gallstones Remainder of plan as above Resident Activity Tracking Resident Involvement: Resident Care Provided Care Provided: Adult [facility]
[2021-07-02] MEDS ORDERED: HYDROmorphone INJ 0.5 MG/0.5 ML SYR IV STA (22:40)
[2021-07-03] MEDS ORDERED: HYDROmorphone INJ 0.5 MG/0.5 ML SYR IV PRN (00:02)
[2021-07-03] MEDS ORDERED: ACETAMINOPHEN 325 MG TAB PO PRN (00:02)
[2021-07-03] MEDS ORDERED: ONDANSETRON INJ 2 MG/ML 2 ML VIAL IV PRN (00:02)
[2021-07-03] MEDS ORDERED: ALUMINUM/MAGNESIUM SUSP 30 ML UDC PO PRN (00:02)
[2021-07-03] MEDS ORDERED: ZOLPIDEM TARTRATE 5 MG TAB PO PRN (00:02)
[2021-07-03] MEDS ORDERED: traMADol HCL 50 MG TABLET PO PRN (00:02)
[2021-07-03] MEDS ORDERED: POLYETHYLENE (MIRALAX) 17 GM PACK PO PRN (00:02)
[2021-07-03] MEDS ORDERED: ONDANSETRON 4 MG OD TAB PO PRN (00:07)
[2021-07-03] MEDS: HYDROmorphone INJ 0.5 MG/0.5 ML SYR IV SCH ×8 (00:25→21:14)
[2021-07-03] MEDS: KETOROLAC TROMETHAMINE 15 MG/ML VIAL IV SCH ×4 (00:26→18:10)
[2021-07-03] MEDS: SERTRALINE HCL 50 MG TABLET PO SCH ×2 (00:27→21:12)
[2021-07-03] MEDS: FOLIC ACID 1 MG TAB PO SCH ×2 (00:27→21:12)
[2021-07-03] MEDS: SODIUM CHLORIDE 0.45 % 1,000 ML IV SCH ×6 (00:27→20:00)
[2021-07-03 00:59] LABS: Appearance Urine Clear (Clear); Bilirubin Urine Negative (Negative); Blood Urine Negative (Negative); Color Urine Yellow; Glucose Urine UA Negative (Negative); Ketones Urine Trace (Negative); Leukocyte Esterase Urine Negative (Negative); Nitrite Urine Negative (Negative); Protein Urine Negative (Negative); Specific Gravity Urine 1.014 (1.000-1.030); Urobilinogen Urine Negative (Negative)
[2021-07-03 01:01] LABS: Pregnancy Test, Urine Negative (Negative)
--- NOTE | 2021-07-03 04:38 | Billing Data ---
Date of Service July 02, 2021 Coding Level of Care Code 71220 Initial Inpt Care Lvl 2
[2021-07-03 06:38] LABS: Basophils # (auto) 0.04 K/uL (0-0.2); Basophils % (auto) 0.3 %; Eosinophils # (auto) 0.14 K/uL (0-0.5); Eosinophils % (auto) 1.1 %; Hematocrit (blood only) 28.4 % (37-47); Hemoglobin 10.1 g/dL (12.0-16.0); Immature Granulocytes # (auto) 0.02 K/uL (0.00-0.02); Immature Granulocytes % (auto) 0.2 %; Lymphocytes # (auto) 0.79 K/uL (1.2-3.4); Lymphocytes % (auto) 6.4 %; Mean Corpuscular Hemoglobin 30.2 pg (25-34); Mean Corpuscular Hgb Conc 35.6 g/dL (32-36); Mean Platelet Volume 8.8 fL (7.4-10.4); Monocytes # (auto) 1.26 K/uL (0.11-0.59); Monocytes % (auto) 10.3 %; Neutrophils # (auto) 10.02 K/uL (1.4-6.5); Neutrophils % (auto) 81.7 %; Nucleated RBC # (auto) 0.03 K/uL (0-0); Nucleated RBC % (auto) 0.2 %; Platelet Count 240 K/uL (130-400); RDW Coefficient of Variation 15.7 % (11.5-14.5); RDW Standard Deviation 48.7 fL (36.4-46.3); Red Blood Count 3.34 M/uL (4.2-5.4); White Blood Count 12.27 K/uL (4.8-10.8)
[2021-07-03 07:14] LABS: Alanine Aminotransferase 15 U/L (12-78); Aspartate Aminotransferase 15 U/L (15-37); BUN Creatinine Ratio 11.4 (10-20); Bilirubin Direct 0.3 mg/dl (0-0.2); Blood Urea Nitrogen 6 mg/dl (7-18); Calcium 8.3 mg/dl (8.5-10.1); Carbon Dioxide 24 mmol/L (21-32); Chloride 109 mmol/L (98-107); Creatinine Clr Calc Pharmacy 160.3 ml/min; Est GFR (African American) > 150.0 ml/min; Est GFR (Non-African American) 135.8 ml/min; Glucose 108 mg/dl (70-99); Sodium 137 mmol/L (136-145)
[2021-07-03 07:20] LABS: Alkaline Phosphatase 45 U/L (45-117); Bilirubin,Total 1.5 mg/dl (0.2-1); Total Protein 6.3 gm/dl (6.4-8.2)
--- NOTE | 2021-07-03 08:42 | Electrocardiogram Report ---
Test Reason : Blood Pressure : / mmHG Vent. Rate : 098 BPM Atrial Rate : 098 BPM P-R Int : 164 ms QRS Dur : 078 ms QT Int : 366 ms P-R-T Axes : 059 059 033 degrees QTc Int : 467 ms Normal sinus rhythm Diffuse Nonspecific T wave abnormality Prolonged QT Abnormal ECG When compared with ECG of 07-MAY-2021 22:32, Nonspecific T wave abnormality has replaced inverted T waves in Inferior leads Confirmed by Cleveland Fortune ([id number]) on 07/03/2021 8:42:38 AM Referred By: REFERRED SELF Confirmed By:Cleveland Fortune
[2021-07-03] MEDS ORDERED: OSELTAMIVIR PHOSPHATE 75 MG CAP PO STA (09:23)
[2021-07-03] MEDS ORDERED: SODIUM CHLORIDE 0.45 % 1,000 ML IV SCH (12:00)
--- NOTE | 2021-07-03 12:16 | Hospitalist Progress Note ---
Date of Service July 03, 2021 Assessment & Plan (1) Influenza A: Plan: in light of higher risk of complications due to sickle cell disease will continue Rx with tamiflu plan 5-day course of tamiflu supportive care add incentive spirometry no complicating bacterial superinfection on cxr (2) Sickle cell crisis: Plan: vaso-occlusive pain crisis in the midst of #1 check CPK r/o rhabdomyolysis from her influenza infection treat sickle cell pain crisis with copious IVF, NSAIDs, narcotic pain meds, etc no evidence of acute chest syndrome, aplastic crisis, etc. CBC and retic in am (3) Abnormal LFTs: Plan: 2nd to hemolysis from sickle cell disease h/o gallstones but no symptoms/signs to suggest active biliary tract disease repeat LFTs 1-2 days for stability (4) Asthma: Plan: no exacerbation at this time Plan: decrease fluid rate from 250cc/hr to 125cc/hr regular diet incentive spirometry add bowel regimen offered to give update to her family - she declined Admission and Anticipated Discharge Date Admission Date: July 02, 2021 Subjective patient states she has been sick with flu symptoms for 4-5 days nasal congestion, fatigue, poor appetite, arthralgias/myalgias all present no cough or dyspnea no chest pain no fevers - did feel cold in the recent past sickle pain is worst in her spine/back and b/l knees - these are typical locations for her sickle bone pain no joint swelling thinks her sickle disease is SC Review of Systems Review of Systems: gen - no fevers, appetite fair at best CV - no chest pain pulm - no dyspnea, chest tightness or cough GI - no nausea or emesis Physical Exam Physical Exam: gen - sick but nontoxic mouth - MM modestly dry heart - RRR, s1 s2, no murmur lungs - CTA b/l, no rales or wheeze abd - soft NT ND BS+ no HSM ext - no edema, pulses 2+ b/l musculo - b/l knees w/o effusions; thoracic/lumbar spine mildly tender to palpation skin - no rash Results & Data Results & Data ([facility]) Vital Signs (Past 12 Hours) Vital Signs Temp Pulse Resp BP Pulse Ox 07/03/21 07:57 36.9 C 85 17 103/63 98 07/03/21 00:42 36.7 C 91 H 20 130/88 100 07/03/21 00:30 36.7 C 91 H 20 130/88 100 Laboratory Results Laboratory Results - last 24 hr 07/02/21 07/02/21 07/02/21 18:35 18:35 18:35 WBC 13.15 H RBC 3.89 L Hgb 11.9 L Hct 33.2 L MCV 85.3 MCH 30.6 MCHC 35.8 RDW Std Deviation 48.7 H RDW Coeff of Kashif 16.0 H Plt Count 323 MPV 9.1 Immature Gran % (Auto) 0.3 Neut % (Auto) 80.7 Lymph % (Auto) 9.8 [place] % (Auto) 6.5 Eos % (Auto) 2.3 Baso % (Auto) 0.4 Reticulocyte % (Auto) 6.7 H Neut # (Auto) 10.61 H Lymph # (Auto) 1.29 [place] # (Auto) 0.86 H Eos # (Auto) 0.30 Baso # (Auto) 0.05 Reticulocyte # 0.26 H Immature Gran # (Auto) 0.04 H Absolute Nucleated RBC 0.05 H Nucleated RBC % (auto) 0.4 Polychromasia 1+ Hypochromasia Present Target Cells 2+ PT INR APTT PTT Ratio Sodium 139 Potassium 4.0 Chloride 108 H Carbon Dioxide 23 Anion Gap 8.0 BUN 7 Creatinine 0.66 Est Cr Clr Drug Dosing 108.2 Est GFR ( Amer) 147.4 Est GFR (Non-Af Amer) 127.2 BUN/Creatinine Ratio 10.3 Glucose 90 Lactate Calcium 8.9 Phosphorus 3.6 Magnesium 2.0 Total Bilirubin 1.8 H Direct Bilirubin 0.4 H AST 15 ALT 15 Alkaline Phosphatase 55 Troponin I < 0.015 Total Protein 7.3 Albumin 3.9 Globulin 3.4 Albumin/Globulin Ratio 1.1 Lipase 73 Procalcitonin < 0.05 Urine Color Urine Appearance Urine pH Ur Specific [place] Urine Protein Urine Glucose (UA) Urine Ketones Urine Blood Urine Nitrite Urine Bilirubin Urine Urobilinogen Ur Leukocyte Esterase Urine Test COVID-19 Eval Order SARS-CoV-2 (PCR) Influ A Molecular Assay Influ B Molecular Assay 07/02/21 07/02/21 07/02/21 18:35 19:10 19:14 WBC RBC Hgb Hct MCV MCH MCHC RDW Std Deviation RDW Coeff of Kashif Plt Count MPV Immature Gran % (Auto) Neut % (Auto) Lymph % (Auto) [place] % (Auto) Eos % (Auto) Baso % (Auto) Reticulocyte % (Auto) Cancelled Neut # (Auto) Lymph # (Auto) [place] # (Auto) Eos # (Auto) Baso # (Auto) Reticulocyte # Cancelled Immature Gran # (Auto) Absolute Nucleated RBC Nucleated RBC % (auto) Polychromasia Hypochromasia Target Cells PT 11.3 INR 1.1 APTT 25.1 PTT Ratio 1.0 Sodium Potassium Chloride Carbon Dioxide Anion Gap BUN Creatinine Est Cr Clr Drug Dosing Est GFR ( Amer) Est GFR (Non-Af Amer) BUN/Creatinine Ratio Glucose Lactate 0.4 Calcium Phosphorus Magnesium Total Bilirubin Direct Bilirubin AST ALT Alkaline Phosphatase Troponin I Total Protein Albumin Globulin Albumin/Globulin Ratio Lipase Procalcitonin Urine Color Urine Appearance Urine pH Ur Specific [place] Urine Protein Urine Glucose (UA) Urine Ketones Urine Blood Urine Nitrite Urine Bilirubin Urine Urobilinogen Ur Leukocyte Esterase Urine Test COVID-19 Eval Order SARS-CoV-2 (PCR) Influ A Molecular Assay Influ B Molecular Assay 07/02/21 07/02/21 07/02/21 Unknown Unknown Unknown WBC RBC Hgb Hct MCV MCH MCHC RDW Std Deviation RDW Coeff of Kashif Plt Count MPV Immature Gran % (Auto) Neut % (Auto) Lymph % (Auto) [place] % (Auto) Eos % (Auto) Baso % (Auto) Reticulocyte % (Auto) Neut # (Auto) Lymph # (Auto) [place] # (Auto) Eos # (Auto) Baso # (Auto) Reticulocyte # Immature Gran # (Auto) Absolute Nucleated RBC Nucleated RBC % (auto) Polychromasia Hypochromasia Target Cells PT INR APTT PTT Ratio Sodium Potassium Chloride Carbon Dioxide Anion Gap BUN Creatinine Est Cr Clr Drug Dosing Est GFR ( Amer) Est GFR (Non-Af Amer) BUN/Creatinine Ratio Glucose Lactate Calcium Phosphorus Magnesium Total Bilirubin Direct Bilirubin AST ALT Alkaline Phosphatase Troponin I Total Protein Albumin Globulin Albumin/Globulin Ratio Lipase Procalcitonin Urine Color Urine Appearance Urine pH Ur Specific [place] Urine Protein Urine Glucose (UA) Urine Ketones Urine Blood Urine Nitrite Urine Bilirubin Urine Urobilinogen Ur Leukocyte Esterase Urine Test COVID-19 Eval Order Covid19 at [facility] SARS-CoV-2 (PCR) NEGATIVE Influ A Molecular Assay Positive A* Influ B Molecular Assay Negative 07/03/21 07/03/21 07/03/21 00:33 00:33 06:22 WBC 12.27 H RBC 3.34 L Hgb 10.1 L Hct 28.4 L MCV 85.0 MCH 30.2 MCHC 35.6 RDW Std Deviation 48.7 H RDW Coeff of Kashif 15.7 H Plt Count 240 MPV 8.8 Immature Gran % (Auto) 0.2 Neut % (Auto) 81.7 Lymph % (Auto) 6.4 [place] % (Auto) 10.3 Eos % (Auto) 1.1 Baso % (Auto) 0.3 Reticulocyte % (Auto) Neut # (Auto) 10.02 H Lymph # (Auto) 0.79 L [place] # (Auto) 1.26 H Eos # (Auto) 0.14 Baso # (Auto) 0.04 Reticulocyte # Immature Gran # (Auto) 0.02 Absolute Nucleated RBC 0.03 H Nucleated RBC % (auto) 0.2 Polychromasia Hypochromasia Target Cells PT INR APTT PTT Ratio Sodium Potassium Chloride Carbon Dioxide Anion Gap BUN Creatinine Est Cr Clr Drug Dosing Est GFR ( Amer) Est GFR (Non-Af Amer) BUN/Creatinine Ratio Glucose Lactate Calcium Phosphorus Magnesium Total Bilirubin Direct Bilirubin AST ALT Alkaline Phosphatase Troponin I Total Protein Albumin Globulin Albumin/Globulin Ratio Lipase Procalcitonin Urine Color Yellow Urine Appearance Clear Urine pH 7.0 Ur Specific [place] 1.014 Urine Protein Negative Urine Glucose (UA) Negative Urine Ketones Trace H Urine Blood Negative Urine Nitrite Negative Urine Bilirubin Negative Urine Urobilinogen Negative Ur Leukocyte Esterase Negative Urine Test Negative COVID-19 Eval Order SARS-CoV-2 (PCR) Influ A Molecular Assay Influ B Molecular Assay 07/03/21 06:22 WBC RBC Hgb Hct MCV MCH MCHC RDW Std Deviation RDW Coeff of Kashif Plt Count MPV Immature Gran % (Auto) Neut % (Auto) Lymph % (Auto) [place] % (Auto) Eos % (Auto) Baso % (Auto) Reticulocyte % (Auto) Neut # (Auto) Lymph # (Auto) [place] # (Auto) Eos # (Auto) Baso # (Auto) Reticulocyte # Immature Gran # (Auto) Absolute Nucleated RBC Nucleated RBC % (auto) Polychromasia Hypochromasia Target Cells PT INR APTT PTT Ratio Sodium 137 Potassium 4.0 Chloride 109 H Carbon Dioxide 24 Anion Gap 4.0 BUN 6 L Creatinine 0.54 L Est Cr Clr Drug Dosing 160.3 Est GFR ( Amer) > 150.0 Est GFR (Non-Af Amer) 135.8 BUN/Creatinine Ratio 11.4 Glucose 108 H Lactate Calcium 8.3 L Phosphorus Magnesium Total Bilirubin 1.5 H Direct Bilirubin 0.3 H AST 15 ALT 15 Alkaline Phosphatase 45 Troponin I Total Protein 6.3 L Albumin 3.0 L Globulin Albumin/Globulin Ratio Lipase Procalcitonin Urine Color Urine Appearance Urine pH Ur Specific [place] Urine Protein Urine Glucose (UA) Urine Ketones Urine Blood Urine Nitrite Urine Bilirubin Urine Urobilinogen Ur Leukocyte Esterase Urine Test COVID-19 Eval Order SARS-CoV-2 (PCR) Influ A Molecular Assay Influ B Molecular Assay PG Care Time/CCT Total # of Minutes Spent Total Time Spent with Patient: Total time spent is greater than 50% in coordination of care (as documented) at patient's floor/unit and/or counseling patient: Coding Level of Care Code 46199 Subseq Hosp Care Lvl 2 Diagnoses Influenza A J10.1 Sickle cell crisis D57.00 Abnormal LFTs R94.5 Asthma J45.909
[2021-07-03] MEDS: CETIRIZINE HCL 10 MG TABLET PO SCH (21:12)
[2021-07-03] MEDS: OSELTAMIVIR PHOSPHATE 75 MG CAP PO SCH (21:14)
[2021-07-04] MEDS: HYDROmorphone INJ 0.5 MG/0.5 ML SYR IV SCH ×5 (00:05→12:09)
[2021-07-04] MEDS: KETOROLAC TROMETHAMINE 15 MG/ML VIAL IV SCH ×4 (00:05→17:53)
[2021-07-04] MEDS: SODIUM CHLORIDE 0.45 % 1,000 ML IV SCH ×3 (03:57→21:52)
[2021-07-04 07:12] LABS: Basophils # (auto) 0.07 K/uL (0-0.2); Basophils % (auto) 1.1 %; Eosinophils # (auto) 0.12 K/uL (0-0.5); Eosinophils % (auto) 1.9 %; Lymphocytes # (auto) 1.99 K/uL (1.2-3.4); Lymphocytes % (auto) 31.4 %; Mean Corpuscular Hemoglobin 30.1 pg (25-34); Mean Corpuscular Hgb Conc 35.7 g/dL (32-36); Mean Corpuscular Volume 84.3 fL (80-100); Mean Platelet Volume 9.1 fL (7.4-10.4); Monocytes # (auto) 1.35 K/uL (0.11-0.59); Monocytes % (auto) 21.3 %; Neutrophils # (auto) 2.81 K/uL (1.4-6.5); Neutrophils % (auto) 44.3 %; Nucleated RBC # (auto) 0.02 K/uL (0-0); Nucleated RBC % (auto) 0.3 %; Platelet Count 230 K/uL (130-400); RDW Coefficient of Variation 15.7 % (11.5-14.5); RDW Standard Deviation 48.3 fL (36.4-46.3); Red Blood Count 3.32 M/uL (4.2-5.4); Reticulocyte % 4.2 % (0.5-2.0); Reticulocytes # 0.14 10^6/uL (0.02-0.10); White Blood Count 6.34 K/uL (4.8-10.8)
[2021-07-04 07:42] LABS: BUN Creatinine Ratio 14.2 (10-20); Blood Urea Nitrogen 7 mg/dl (7-18); Calcium 8.3 mg/dl (8.5-10.1); Carbon Dioxide 26 mmol/L (21-32); Chloride 106 mmol/L (98-107); Creatinine Clr Calc Pharmacy 180.3 ml/min; Est GFR (African American) > 150.0 ml/min; Est GFR (Non-African American) 141.2 ml/min; Glucose 88 mg/dl (70-99); Potassium 3.8 mmol/L (3.5-5.1); Sodium 136 mmol/L (136-145)
[2021-07-04] MEDS: OSELTAMIVIR PHOSPHATE 75 MG CAP PO SCH ×2 (08:05→22:01)
[2021-07-04] MEDS: POLYETHYLENE (MIRALAX) 17 GM PACK PO SCH (08:06)
[2021-07-04] MEDS: SENNA 8.6 MG TAB PO SCH (08:06)
[2021-07-04] MEDS ORDERED: HYDROCODONE/ACETAMOPHEN 5/325MG TAB PO PRN (13:16)
[2021-07-04] MEDS ORDERED: HYDROcodone/ACETAMINOPHEN 10/325 TAB PO PRN (13:16)
--- NOTE | 2021-07-04 13:21 | Hospitalist Progress Note ---
Date of Service July 04, 2021 Assessment & Plan (1) Influenza A: Plan: in light of higher risk of complications due to sickle cell disease will continue Rx with tamiflu she is likely at tail end of illness plan 5-day course of tamiflu day 2-3 today supportive care cont incentive spirometry no complicating bacterial superinfection on cxr (2) Sickle cell crisis: Plan: vaso-occlusive pain crisis in the midst of #1 improving cont IVF at 100cc/hr, NSAIDs, pain meds try norco 5-10mg prn in [place] of dilaudid IV no evidence of acute chest syndrome, aplastic crisis, etc. CBC and retic in am (3) Abnormal LFTs: Plan: 2nd to hemolysis from sickle cell disease h/o gallstones but no symptoms/signs to suggest active biliary tract disease repeat LFTs 1-2 days for stability (4) Asthma: Plan: no exacerbation at this time Plan: decrease fluid rate to 100cc/hr added bowel regimen progressing left message for her oncologist on her voicemail this afternoon Admission and Anticipated Discharge Date Admission Date: July 02, 2021 Subjective pt states back continues to hurt - same location - but knees are improved eating is better no cough/dyspnea just has nasal congestion not doing a lot of activity we had a discussion about pain meds she states that the dilaudid IV only lasts about 1 hour she is open to trying oral pain meds today she is hoping to go home tomorrow Review of Systems Review of Systems: gen - no fevers, chills; fatigue improving HEENT - nasal congestion but no sore throat or ear pain pulm - no cough or dyspnea CV - no cp Physical Exam Physical Exam: gen - looks better today mouth - MMM heart - RRR, s1 s2, no murmur lungs - CTA b/l, no rales or wheeze abd - soft NT ND BS+ no HSM ext - no edema, pulses 2+ b/l musculo - b/l knees w/o effusions; thoracic/lumbar spine minimally tender to palpation today skin - no rash Results & Data Results & Data ([facility]) Vital Signs (Past 12 Hours) Vital Signs Temp Pulse Resp BP Pulse Ox 07/04/21 07:47 36.9 C 81 16 103/67 100 Laboratory Results H/H stable Cr stable retic count 4 Diagnostic Findings blood cx's negative PG Care Time/CCT Total # of Minutes Spent Total Time Spent with Patient: Total time spent is greater than 50% in coordination of care (as documented) at patient's floor/unit and/or counseling patient: Coding Level of Care Code 18279 Subseq Hosp Care Lvl 2 Diagnoses Influenza A J10.1 Sickle cell crisis D57.00 Abnormal LFTs R94.5 Asthma J45.909
[2021-07-04] MEDS: FOLIC ACID 1 MG TAB PO SCH (22:00)
[2021-07-04] MEDS: CETIRIZINE HCL 10 MG TABLET PO SCH (22:00)
[2021-07-04] MEDS: SERTRALINE HCL 50 MG TABLET PO SCH (22:01)
[2021-07-05] MEDS: KETOROLAC TROMETHAMINE 15 MG/ML VIAL IV SCH ×4 (01:00→17:45)
[2021-07-05 06:13] LABS: Basophils # (auto) 0.07 K/uL (0-0.2); Basophils % (auto) 1.3 %; Eosinophils # (auto) 0.23 K/uL (0-0.5); Eosinophils % (auto) 4.3 %; Hematocrit (blood only) 29.6 % (37-47); Hemoglobin 10.9 g/dL (12.0-16.0); Immature Granulocytes # (auto) 0.01 K/uL (0.00-0.02); Immature Granulocytes % (auto) 0.2 %; Lymphocytes # (auto) 2.34 K/uL (1.2-3.4); Lymphocytes % (auto) 44.2 %; Mean Corpuscular Hemoglobin 31.1 pg (25-34); Mean Corpuscular Hgb Conc 36.8 g/dL (32-36); Mean Corpuscular Volume 84.3 fL (80-100); Mean Platelet Volume 9.5 fL (7.4-10.4); Monocytes # (auto) 1.14 K/uL (0.11-0.59); Monocytes % (auto) 21.5 %; Neutrophils # (auto) 1.51 K/uL (1.4-6.5); Neutrophils % (auto) 28.5 %; Nucleated RBC # (auto) 0.05 K/uL (0-0); Nucleated RBC % (auto) 0.9 %; Platelet Count 250 K/uL (130-400); RDW Coefficient of Variation 15.7 % (11.5-14.5); RDW Standard Deviation 48.4 fL (36.4-46.3); Red Blood Count 3.51 M/uL (4.2-5.4)
[2021-07-05 06:46] LABS: BUN Creatinine Ratio 18.3 (10-20); Blood Urea Nitrogen 10 mg/dl (7-18); Calcium 8.5 mg/dl (8.5-10.1); Carbon Dioxide 26 mmol/L (21-32); Chloride 108 mmol/L (98-107); Creatinine Clr Calc Pharmacy 163.3 ml/min; Est GFR (African American) > 150.0 ml/min; Est GFR (Non-African American) 136.7 ml/min; Glucose 88 mg/dl (70-99); Sodium 137 mmol/L (136-145)
[2021-07-05 07:07] LABS: Reticulocyte % 2.9 % (0.5-2.0)
[2021-07-05] MEDS: SODIUM CHLORIDE 0.45 % 1,000 ML IV SCH (07:30)
[2021-07-05] MEDS: SENNA 8.6 MG TAB PO SCH (09:57)
[2021-07-05] MEDS: OSELTAMIVIR PHOSPHATE 75 MG CAP PO SCH (09:58)
[2021-07-05] MEDS: POLYETHYLENE (MIRALAX) 17 GM PACK PO SCH (09:58)
[2021-07-05 11:32] LABS: Albumin Level 3.1 gm/dl (3.4-5.0); Bilirubin Direct 0.3 mg/dl (0-0.2); Total Protein 6.3 gm/dl (6.4-8.2)
[2021-07-05] MEDS ORDERED: oxyCODONE HCL IR 5 MG TAB (IMMEDIATE RELEASE) PO PRN ×2 (13:19→13:20)
--- NOTE | 2021-07-05 16:25 | XRay Report ---
XR lumbar spine 2-3V HISTORY: 21 years-old Female back pain . Acute back and abdominal pain without reported trauma COMPARISON: CT abdomen and pelvis 05/07/2021 TECHNIQUE: 3 views of the lumbar spine FINDINGS: Moderate fecal retention. Unremarkable soft tissues. The patient is Risser stage IV. No acute fractur e, subluxation, spondylolysis or spondylolisthesis. No significant intervertebral disc space narrowin g. IMPRESSION: No acute fracture or subluxation. ACT 112: Negative or not required by law. The above report was generated using voice recognition software. It may contain grammatical, syntax o r spelling errors. Electronically signed by: Shiva Francois M.D. 07/05/2021 4:24 PM
--- NOTE | 2021-07-05 18:34 | Discharge Summary ---
Date of Service date of admission - July 02, 2021 date of discharge - July 05, 2021 Admission HPI Per Admitting Provider 21 yo F with PMH sickle cell disease and multiple hospitalizations for acute pain crises and acute chest (recent [facility] admission in April 2021 for acute chest) admitted for generalized pain Last week pt began to experience general respiratory symptoms of congestion, runny nose, sneezing. Symptoms improved over course of week. Yesterday pt suddenly began experiencing generalized pain and fatigue in the morning- 9/10 severity, diffuse, cyclical nature. Pain continued throughout day and she came to ED due to its persistence. Pain diffuse but most intense in back and abdomen. No associated chest pain, dyspnea, fever, chills, nausea/vomiting, diarrhea. COVID vaccinated, up to date on other vaccines but did not get flu shot this year. Does not take any regular medication other than folic acid. Follows with binding cutter and process planner at [facility] in [facility] at [phone] On evaluation, pt reports significant pain 7/10 severity, slightly improved after morphine administration. States morphine does not usually help her but dilaudid and tramadol do, which is consistent with chart review. Denies any othe r symptoms. Principal Diagnosis 1. influenza A infection 2. sickle cell vaso-occlusive pain crisis Discharge Exam gen - looks better today, well-hydrated, comfortable mouth - MMM heart - RRR, s1 s2, no murmur lungs - CTA b/l, no rales or wheeze abd - soft NT ND BS+ no HSM ext - no edema, pulses 2+ b/l musculo - b/l knees w/o effusions; thoracic/lumbar spine minimally tender to palpation skin - no rash Discharge Data Allergies Allergy/AdvReac Type Severity Reaction Status Date / Time peanut Allergy Intermediate ITCHY HIVES Verified 07/02/21 18:36 Ordered Studies Chest X-Ray 07/02/21 18:32 XR chest 1V portable HISTORY: Atypical Chest Pain COMPARISON: Chest 05/07/2021. FINDINGS: The lungs are clear. Cardiac silhouette is normal in size. No pleural effusions. No pneumothorax. IMPRESSION: No acute process. ACT 112: Negative or not required by law. Electronically signed by: Vitor Waite M.D. 07/02/2021 7:28 PM Lumbar Spine X-Ray 07/05/21 13:20 XR lumbar spine 2-3V HISTORY: 21 years-old Female back pain . Acute back and abdominal pain without reported trauma COMPARISON: CT abdomen and pelvis 05/07/2021 TECHNIQUE: 3 views of the lumbar spine FINDINGS: Moderate fecal retention. Unremarkable soft tissues. The patient is Risser stage IV. No acute fracture, subluxation, spondylolysis or spondylolisthesis. No significant intervertebral disc space narrowing. IMPRESSION: No acute fracture or subluxation. ACT 112: Negative or not required by law. The above report was generated using voice recognition software. It may contain grammatical, syntax or spelling errors. Electronically signed by: Shiva Francois M.D. 07/05/2021 4:24 PM Hospital Course (1) Influenza A: Although her symptoms were mild and she had no evidence of lower respiratory tract disease we elected to treat her with a 5-day course of Tamiflu. This was due to her higher risk of complications in the setting of sickle cell disease. In addition to Tamiflu she received supportive care, incentive spirometry, etc. O2 sats were stable throughout her stay, and she remained afebrile. Blood cultures were negative. COVID-19 testing was negative while here. She will complete her Tamiflu course after discharge. (2) Sickle cell crisis: Patient had a vaso-occlusive pain crisis in the midst of #1 above. She mainly c/o b/l knee pain and lumbar back pain. She had improved symptoms s/p copious IV fluids, IV/PO pain medications, etc. She had no evidence of acute chest syndrome, aplastic crisis, etc. while hospitalized. Hemoglobin ranged 10 to 11.9 while here, with discharge hemoglobin of 10.9. She had adequate reticulocytosis throughout the stay. Just before discharge her ANC was borderline low at 1500. This was likely due to mild viral suppression from her influenza illness. I recommended she f/u with her process planner on [place] (patient was traveling home for [facility]) within a few days of discharge and have a repeat CBC. She was given a small number of oxycodone 5's at discharge for any residual pain. She was counseled on the importance of a bowel regimen. (3) Abnormal LFTs: 2nd to hemolysis from sickle cell disease. h/o gallstones but no symptoms/signs to suggest active biliary tract disease while here. Bilirubin normalized prior to discharge. (4) Asthma: no exacerbation at this time despite her influenza A illness. stable o2 sats in room air with no wheezing. (5) Constipation: Due to narcotic usage for #2. Senna + miralax advised at discharge. Total Time Total Time Spent Total Time Spent (In Minutes): 40 Discharge Plan Discharge Items Patient Disposition: Home - Self-Care Reason For Visit: SICKLE CELL CRISIS Discharge Diagnosis: 1. influenza illness 2. sickle cell pain crisis Activity: Resume your previous activity Activity Comment: as tolerated Exercise/Sports: Gradually increase as tolerated Driving/Machine Use: NO DRIVING if using oxycodone pain medication Non-emergency contact: Primary Care Provider and Oncologist Call non-emergency contact if: you have any medication questions, your symptoms worsen, your pain is not controlled, your pain is worsening, your pain is concerning for you and you have a fever Follow-up/Referrals: [facility] [Primary Care Provider] - Diet: Regular Addtl Attending Provider Instructions: Miss Armenta, You were hospitalized for your sickle cell disease. In the midst of influenza illness you developed a sickle pain crisis. You were treated for the flu with "tamiflu" medication. Your sickle pain was treated with IV fluids and pain medication. X-rays of your back returned normal. Your COVID testing was negative. The x-rays also demonstrated significant constipation. Your hemoglobin today on day of discharge is 10.9. Your White blood cell count is 5.3. Your neutrophil count is 1510. You can share these values with Ms Vargas back home. Recommendations - 1. please follow-up with [facility]- Petra FELICIANO- to have a repeat CBC this coming week. 2. take tamiflu (oseltamivir) as follows - * dose #1 tonight * dose #2 tomorrow AM * dose #3 tomorrow evening * dose #4 Thursday morning * dose #5 Thursday evening This medication is for the flu virus. 3. for pain may take - * oxycodone 5mg every 4 hours as needed * do not drive a car while taking this medication * do not drink alcohol while taking this medication * oxycodone can cause you to be sleepy and will make your constipation worse 4. for additional pain control may use - * [id number] tylenol 1000mg every 6 hours as needed, max of 3000mg in 24 hours * ibuprofen - 600mg up to 3 times a day as needed 5. for constipation - you may need a combination of BOTH miralax and senakot [id number] to move your bowels. Once they start moving I would stay on miralax for a few weeks to maintain regularity. 6. you are no longer contagious from your influenza illness. The risk of spreading flu to others is quite low or none. Follow-up - see your oncologist back home this week for a repeat CBC with differential Return to any hospital if - * you have fevers over 100.4 degrees * you have uncontrolled pain * you have chest pain * you have shortness of breath * any other concerns Enjoy your Thanksgiving with your family! -Dr Guo Pending Studies at Discharge: No Stand-Alone Forms: My [facility], Opioid Pain Management, Smoking Cessation Medications and DC Order Prescriptions: New sennosides [Senokot] 8.6 mg Tablet 17.2 mg PO QAM Qty: 30 RF: 0 polyethylene glycol 3350 [Miralax] 17 gram Powder In Packet 17 g PO DAILY Qty: 1 RF: 0 oseltamivir [Tamiflu] 75 mg Capsule 75 mg PO BID Qty: 5 RF: 0 oxycodone 5 mg Tablet 5 mg PO Q4H PRN (Reason: pain) Qty: 12 RF: 0 Continued folic acid 1 mg Tablet 1 mg PO HS RF: 0 cetirizine 10 mg tablet 10 mg PO HS RF: 0 ergocalciferol (vitamin D2) 1,250 mcg (50,000 unit) capsule 50,000 unit PO WK RF: 0 sertraline 25 mg tablet 50 mg PO HS RF: 0 ondansetron 4 mg tablet,disintegrating 4 - 8 mg PO Q8H PRN (Reason: nausea and vomiting) Qty: 14 RF: 0 Discontinued tramadol 50 mg tablet 50 mg PO Q6H PRN (Reason: pain) Qty: 40 RF: 0 Discharge Orders: Discharge Order (Routine); Ordered 07/05/21 Ordered By: Tony Huber/Other Patient Handouts: ED Influenza (Adult) Admission Data Admit Date/Time: 07/02/21 22:15 Attending Provider: Tony Guo Admit Provider: Yazmin Cuenca Primary Care Provider: [facility] Other Providers: Madiha Rodriguez Other Interventions: Discharge Summary Assessment (RN) Last Done: 07/05/21 17:41 Coding Level of Care Code D/C DAY MANAGEMENT >30 MINS Diagnoses Influenza A J10.1 Sickle cell crisis D57.00 Abnormal LFTs R94.5 Asthma J45.909 Constipation K59.00
[2021-07-06] MEDS ORDERED: ERGOCALCIFEROL 50,000 UNITS 1250 MCG CAP PO SCH (09:00)
== END 2021-07-05 19:06 | disposition home or self-care (01) | DRG 193 ==
LOC: ED 17:46 → INTOOBSV 22:15 → SUATTDRO 22:15 → 3E 22:15

== ENCOUNTER 2021-08-01 13:05 | Inpatient (IN) ==
[2021-08-01] MEDS ORDERED: MoRPHine SULFATE 4 MG/ML 1 ML CARP\\VIAL IV STA (13:35)
[2021-08-01] MEDS ORDERED: ONDANSETRON INJ 2 MG/ML 2 ML VIAL IV STA (13:35)
[2021-08-01] MEDS ORDERED: SODIUM CHLORIDE 0.9% 1000ML 1,000 ML IV ONE (13:35)
[2021-08-01] MEDS ORDERED: HYDROmorphone INJ 1 MG/ML SYRINGE IV STA ×2 (13:51→15:40)
[2021-08-01 14:17] LABS: Reticulocyte % 6.1 % (0.5-2.0); Reticulocytes # 0.23 10^6/uL (0.02-0.10)
[2021-08-01 14:18] LABS: Basophils # (auto) 0.07 K/uL (0-0.2); Basophils % (auto) 0.5 %; Eosinophils # (auto) 0.41 K/uL (0-0.5); Eosinophils % (auto) 3.1 %; Hematocrit (blood only) 32.4 % (37-47); Hemoglobin 11.6 g/dL (12.0-16.0); Immature Granulocytes # (auto) 0.04 K/uL (0.00-0.02); Immature Granulocytes % (auto) 0.3 %; Lymphocytes # (auto) 0.43 K/uL (1.2-3.4); Lymphocytes % (auto) 3.3 %; Mean Corpuscular Hgb Conc 35.8 g/dL (32-36); Mean Corpuscular Volume 86.6 fL (80-100); Mean Platelet Volume 9.5 fL (7.4-10.4); Monocytes # (auto) 1.84 K/uL (0.11-0.59); Monocytes % (auto) 14.1 %; Neutrophils # (auto) 10.25 K/uL (1.4-6.5); Neutrophils % (auto) 78.7 %; Nucleated RBC # (auto) 0.09 K/uL (0-0); Nucleated RBC % (auto) 0.7 %; Platelet Count 305 K/uL (130-400); RDW Coefficient of Variation 15.7 % (11.5-14.5); RDW Standard Deviation 49.3 fL (36.4-46.3); Red Blood Count 3.74 M/uL (4.2-5.4); White Blood Count 13.04 K/uL (4.8-10.8)
--- NOTE | 2021-08-01 14:47 | XRay Report ---
XR chest 2V PA/lateral HISTORY: 21 years-old Female cough ro pna acute cough COMPARISON: Chest radiograph 07/02/2021 TECHNIQUE: PA and lateral views of the chest FINDINGS: The cardiomediastinal and hilar silhouettes are within normal limits. No pneumothorax, pleural effusi on, airspace consolidation or overt pulmonary edema. Bones appear grossly intact. IMPRESSION: Normal exam. ACT 112: Negative or not required by law. The above report was generated using voice recognition software. It may contain grammatical, syntax o r spelling errors. Electronically signed by: Shiva Francois M.D. 08/01/2021 2:46 PM
[2021-08-01] MEDS ORDERED: HYDROmorphone INJ 0.5 MG/0.5 ML SYR IV STA ×2 (15:03→19:29)
[2021-08-01 15:14] LABS: BUN Creatinine Ratio 8.2 (10-20); Calcium 8.2 mg/dl (8.5-10.1); Creatinine Clr Calc Pharmacy 110.8 ml/min; Est GFR (African American) 128.8 ml/min; Est GFR (Non-African American) 111.1 ml/min; Potassium 3.8 mmol/L (3.5-5.1)
--- NOTE | 2021-08-01 15:36 | Emergency Department Note ---
History of Present Illness General Chief complaint: Pain (Generalized) Stated complaint: ABD PAIN Time Seen by Provider: 08/01/21 13:34 History of Present Illness Provider complaint: Sickle cell crisis Onset (ago): day(s) 1 Location: back and lower extremity Radiation: non-radiation Severity: severe Pain Consistency: + constant Maximum Pain Intensity: 8 Current Pain Intensity: 8 Quality: + stabbing and + sharp Relieved By: + none Exacerbated By: + none Associated symptoms: + cough; no chest pain, no fever/chills, no headaches, no n ausea/vomiting or no shortness of breath 21-year-old female presents emergency department for sickle cell crisis. Patient states over the last day she is having increasing pain in her back and her bilateral knees which is typical for sickle cell pain. No fevers. No chest pain. No difficulty breathing. No headaches. He does report cough. Home Medications Medication Instructions Recorded Confirmed Type cetirizine 10 mg tablet 10 mg PO HS 04/18/20 08/01/21 History ergocalciferol (vitamin D2) 1,250 50,000 unit PO WK 04/18/20 08/01/21 History mcg (50,000 unit) capsule ondansetron 4 mg disintegrating 4 - 8 mg PO Q8H PRN #14 tab 02/28/21 08/01/21 Rx tablet sertraline 25 mg tablet 75 mg PO HS 07/02/21 08/01/21 History folic acid 1 mg tablet 1 mg PO DAILY 08/01/21 08/01/21 History Allergies Allergy/AdvReac Type Severity Reaction Status Date / Time peanut Allergy Intermediate ITCHY HIVES Verified 08/01/21 13:55 Past Med/Surg History Medical History Asthma Leukocytosis Pneumonia Sepsis Sickle cell anemia Splenomegaly Surgical History No pertinent past surgical history Family History Other No significant family history Social History Smoking Status: Never smoker Second Hand Exposure: No; Hx Alcohol Use: No Hx Substance Use: No Preferred Language: Romansh Communication Ability: Effective Scraper Operator Required: No Beliefs That Will Affect Care: None marital status: Single Current Living Situation: Other Current Living Situation Comment: 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 Feels Safe at Home: Yes Assistive Devices: Glasses Review of Systems A total of 10 systems reviewed and were otherwise negative Physical Exam Vital Signs Vital Signs - 24 hr 08/01/21 13:08 08/01/21 13:24 08/01/21 13:35 Temperature 36.7 C Temperature Source Temporal Artery Scan Pulse Rate 137 H Respiratory Rate 18 16 Respiratory Effort / Characteristics Non-Labored Non-Labored Spontaneous Respiratory Depth Normal Normal Respiratory Pattern Regular Regular Blood Pressure 117/60 Blood Pressure [Right Arm] 106/66 Blood Pressure Mean 79 Blood Pressure Mean [Right Arm] 79 Blood Pressure Position [Right Arm] Lying Pulse Oximetry 97 96 Oxygen Delivery Method Room Air Room Air Room Air Sepsis Recent Fever Within 48 Hours No Sepsis New/Unexplained Change in Mental Status No Sepsis Action Taken by Nursing No Action Required Physical Exam GENERAL: She is oriented to person, place, and time. She appears well-developed and well-nourished. She does not appear distressed. HENT: Exam performed. -Head: Normocephalic and atraumatic. -Right Ear: External ear normal. No mastoid tenderness. -Left Ear: External ear normal. No mastoid tenderness. -Mouth/Throat: The oropharynx is clear and moist. No trismus in the jaw. No dental abscesses or uvula swelling. No oropharyngeal exudate or tonsillar abscesses. EYES: Conjunctivae and EOM are normal. Pupils are equal, round, and reactive to light. Right eye exhibits no discharge. Left eye exhibits no discharge. No scleral icterus. NECK: Normal range of motion. Neck supple. No JVD present. No spinous process tenderness present. No carotid bruit present. No rigidity. No tracheal deviation and normal range of motion present. No Brudzinski's sign and no Kernig's sign noted. CV: Tachycardic rate, regular rhythm, normal heart sounds and intact distal pulses. There is no peripheral edema. Palpable radial pulses bue. PULM/CHEST: Effort normal and breath sounds normal. No respiratory distress. No stridor. She has no wheezes. She has no rales. -Chest Wall: She exhibits no tenderness. ABD: The abdomen is soft. Bowel sounds are normal. She has no distension. No mass is present. There is no tenderness. There is no rebound, no guarding, no Lou's sign and no tenderness at McBurney's point. Rovsig negative MUSC/SKEL: Normal range of motion. There is no peripheral edema, tenderness or deformity. LYMPH: No cervical adenopathy. NEURO: She is alert and oriented to person, place, and time. She has normal strength. No cranial nerve deficit or sensory deficit. Coordination and gait normal. GCS eye subscore is 4. GCS verbal subscore is 5. GCS motor subscore is 6. Cerebellar tests wnl. SKIN: Skin is warm and dry. She is not diaphoretic. PSYCH: She has a normal mood and affect. Behavior is normal. Judgment and thought content normal. Course Course 1334: The patient was evaluated in room C11. A complete history and physical exam was performed Cardiac monitoring: An order was placed for continuous cardiac monitoring. The monitor shows a rate of 120 with sinus tachycardia rhythm 1548: Vital signs improved. Labs within normal limits. Patient still reporting and lot of knee and back pain despite multiple rounds analgesia. Patient will be [facility] to [facility] for pain control for her sickle cell crisis. Administered Medications Discontinued Medications Hydromorphone HCl (Hydromorphone Inj 1 Mg/Ml Syringe) 0.5 mg IV NOW STA Stop: 08/01/21 13:52 Last Admin: 08/01/21 14:10 Dose: 0.5 mg Documented by: [id number] Hydromorphone HCl (Hydromorphone Inj 0.5 Mg/0.5 Ml Syr) 0.5 mg IV NOW STA Stop: 08/01/21 15:04 Last Admin: 08/01/21 15:10 Dose: 0.5 mg Documented by: [id number] Sodium Chloride (Nss 1000ml) 1,000 mls @ 999 mls/hr IV .Q1H1M ONE Stop: 08/01/21 14:35 Last Admin: 08/01/21 14:12 Dose: 999 mls/hr Documented by: [id number] Morphine Sulfate (Morphine Sulfate 4 Mg/Ml 1 Ml Carp\Vial) 4 mg IV NOW STA Stop: 08/01/21 13:36 Last Admin: 08/01/21 15:01 Dose: Not Given Documented by: [id number] Ondansetron HCl (Ondansetron Inj 2 Mg/Ml 2 Ml Vial) 4 mg IV NOW STA Stop: 08/01/21 13:36 Last Admin: 08/01/21 14:10 Dose: 4 mg Documented by: [id number] Medical Decision Making Laboratory Data Result diagrams: 08/01/21 14:03 08/01/21 14:03 Lab Results 08/01/21 08/01/21 08/01/21 Range/Units 14:03 14:03 14:03 WBC 13.04 H (4.8-10.8) K/uL RBC 3.74 L (4.2-5.4) M/uL Hgb 11.6 L (12.0-16.0) g/dL Hct 32.4 L (37-47) % MCV 86.6 (80-100) fL MCH 31.0 (25-34) pg MCHC 35.8 (32-36) g/dL RDW Std Deviation 49.3 H (36.4-46.3) fL RDW Coeff of Kashif 15.7 H (11.5-14.5) % Plt Count 305 (130-400) K/uL MPV 9.5 (7.4-10.4) fL Immature Gran % (Auto) 0.3 % Neut % (Auto) 78.7 % Lymph % (Auto) 3.3 % Island % (Auto) 14.1 % Eos % (Auto) 3.1 % Baso % (Auto) 0.5 % Reticulocyte % (Auto) 6.1 H (0.5-2.0) % Neut # (Auto) 10.25 H (1.4-6.5) K/uL Lymph # (Auto) 0.43 L (1.2-3.4) K/uL Island # (Auto) 1.84 H (0.11-0.59) K/uL Eos # (Auto) 0.41 (0-0.5) K/uL Baso # (Auto) 0.07 (0-0.2) K/uL Reticulocyte # 0.23 H (0.02-0.10) 10^6/uL Immature Gran # (Auto) 0.04 H (0.00-0.02) K/uL Absolute Nucleated RBC 0.09 H (0-0) K/uL Nucleated RBC % (auto) 0.7 % Sodium 140 (136-145) mmol/L Potassium 3.8 (3.5-5.1) mmol/L Chloride 110 H (98-107) mmol/L Carbon Dioxide 26 (21-32) mmol/L Anion Gap 4.0 (3-11) BUN 6 L (7-18) mg/dl Creatinine 0.77 (0.6-1.2) mg/dl Est Cr Clr Drug Dosing 110.8 ml/min Est GFR ( Amer) 128.8 ml/min Est GFR (Non-Af Amer) 111.1 ml/min BUN/Creatinine Ratio 8.2 L (10-20) Glucose 97 (70-99) mg/dl Calcium 8.2 L (8.5-10.1) mg/dl Lactate Dehydrogenase (84-246) U/L 08/01/21 Range/Units 14:03 WBC (4.8-10.8) K/uL RBC (4.2-5.4) M/uL Hgb (12.0-16.0) g/dL Hct (37-47) % MCV (80-100) fL MCH (25-34) pg MCHC (32-36) g/dL RDW Std Deviation (36.4-46.3) fL RDW Coeff of Kashif (11.5-14.5) % Plt Count (130-400) K/uL MPV (7.4-10.4) fL Immature Gran % (Auto) % Neut % (Auto) % Lymph % (Auto) % Island % (Auto) % Eos % (Auto) % Baso % (Auto) % Reticulocyte % (Auto) (0.5-2.0) % Neut # (Auto) (1.4-6.5) K/uL Lymph # (Auto) (1.2-3.4) K/uL Island # (Auto) (0.11-0.59) K/uL Eos # (Auto) (0-0.5) K/uL Baso # (Auto) (0-0.2) K/uL Reticulocyte # (0.02-0.10) 10^6/uL Immature Gran # (Auto) (0.00-0.02) K/uL Absolute Nucleated RBC (0-0) K/uL Nucleated RBC % (auto) % Sodium (136-145) mmol/L Potassium (3.5-5.1) mmol/L Chloride (98-107) mmol/L Carbon Dioxide (21-32) mmol/L Anion Gap (3-11) BUN (7-18) mg/dl Creatinine (0.6-1.2) mg/dl Est Cr Clr Drug Dosing ml/min Est GFR ( Amer) ml/min Est GFR (Non-Af Amer) ml/min BUN/Creatinine Ratio (10-20) Glucose (70-99) mg/dl Calcium (8.5-10.1) mg/dl Lactate Dehydrogenase 283 H (84-246) U/L Imaging Data Radiologist's Impression: Chest X-Ray 08/01/21 13:35 XR chest 2V PA/lateral HISTORY: 21 years-old Female cough ro pna acute cough COMPARISON: Chest radiograph 07/02/2021 TECHNIQUE: PA and lateral views of the chest FINDINGS: The cardiomediastinal and hilar silhouettes are within normal limits. No pneumot horax, pleural effusion, airspace consolidation or overt pulmonary edema. Bones appear grossly intact. IMPRESSION: Normal exam. ACT 112: Negative or not required by law. The above report was generated using voice recognition software. It may contain grammatical, syntax or spelling errors. Electronically signed by: Shiva Francois M.D. 08/01/2021 2:46 PM MDM Narrative Vital signs improved. Labs within normal limits. Patient still reporting and lot of knee and back pain despite multiple rounds analgesia. Patient will be admitted to the [facility] team for pain control for her sickle cell crisis. Impression & Plan Sickle cell crisis Discharge Plan Visit Data Chief Complaint: Pain (Generalized) Stated Complaint: ABD PAIN ED Provider: Jerald Manley Discharge Problem: Sickle cell crisis Patient Disposition: Admitted As Inpatient Forms Stand Alone Forms: My [facility] Prescriptions Prescriptions: No Action cetirizine 10 mg tablet 10 mg PO HS RF: 0 ergocalciferol (vitamin D2) 1,250 mcg (50,000 unit) capsule 50,000 unit PO WK RF: 0 sertraline 25 mg tablet 75 mg PO HS RF: 0 folic acid 1 mg tablet 1 mg PO DAILY RF: 0 ondansetron 4 mg tablet,disintegrating 4 - 8 mg PO Q8H PRN (Reason: nausea and vomiting) Qty: 14 RF: 0 Referrals [facility] [Primary [facility] Provider[facility] -
--- NOTE | 2021-08-01 19:21 | History & Physical Report ---
Date of Service August 01, 2021 Assessment & Plan (1) Sickle cell crisis: Plan: -Consistent with previous sickle cell crises, likely due to Covid-19 infection -Admit to Med/Surg with telemetry -Hgb stable at 11.6. Transfuse if <7. -Pain management with dilaudid 0.5 mg q3h prn, toradol 30 mg prn. Wean pain management down to her home regimen of tramadol 15 mg q6h prn. -Supplemental O2 as needed, current saturation at 94 on RA -1/2 NSS at 125 ml/Hr- 2 bags -Continue home folic acid -Zofran prn for nausea -Trend CBC, CMP (2) COVID-19: Plan: -COVID-19 positive, COVID vaccinated x 2, Chest xray clear at this time -Admit to COVID unit with contact precautions -Currently saturating at 94 on RA, O2 as needed, at this point does not qualify for remdesivir, will monitor for severe disease -Procal, ESR, D-Dimer, CRP, PT/INR, PTT pending at time of writing this note -Lovenox 40 mg BID for DVT prophylaxis -Daily CBC, CMP, CK, and D-Dimer Dispo: Med/Surg w/ tele Diet: Regualr DVT Prophylaxis: Lovenox (COVID) Code: Full code History of Present Illness Chief Complaint: Sickle Cell Crisis Primary Care Provider: [facility] This is a 21 year old female with the past medical history of Sickle cell anemia presenting to the inpatient service for the CC of sickle cell crisis. Pt has a hx of frequent episodes of sickle cell pain crises with the most recent being on July 05, 2021. At that time she had influenza which started her sickle cell crisis. She was in the hospital for 3 days being treated for her pain as well as her flu symptoms and she was discharged after. Patient reports that for the past 24 hours she has had progressively worsening pain in her knees and her back which is typical for her sickle cell crises. She attempted to utilize her home tramadol which has not put a dent into her pain. Additionally patient has stated that she is also had a cough and chest tightness for the past 24 to 48 hours. Patient reports that for the past week she is also felt generalized weakness and this morning actually needed help putting her clothes on due to how weak she felt. Currently patient feels that her pain is in 8 out of 10 prior to getting the Dilaudid in the ED, currently her pain is a 7 out of 10 and is asking for additional pain medication. Her pain is cyclic in nature. Patient is Covid vaccinated x2. Patient reports no other complaints at this time. Allergies Allergy/AdvReac Type Severity Reaction Status Date / Time peanut Allergy Intermediate ITCHY HIVES Verified 08/01/21 13:55 Home Medications Medication Instructions Recorded Confirmed Type cetirizine 10 mg tablet 10 mg PO HS 04/18/20 08/01/21 History ergocalciferol (vitamin D2) 1,250 50,000 unit PO WK 04/18/20 08/01/21 History mcg (50,000 unit) capsule ondansetron 4 mg disintegrating 4 - 8 mg PO Q8H PRN #14 tab 02/28/21 08/01/21 Rx tablet sertraline 25 mg tablet 75 mg PO HS 07/02/21 08/01/21 History folic acid 1 mg tablet 1 mg PO DAILY 08/01/21 08/01/21 History Past Med/Surg History Medical History Asthma Leukocytosis Pneumonia Sepsis Sickle cell anemia Splenomegaly Surgical History No pertinent past surgical history Family History Other No significant family history Social History Smoking Status: Never smoker Second Hand Exposure: No; Hx Alcohol Use: No Hx Substance Use: No Preferred Language: Guinean Communication Ability: Effective Buck Presser Required: No Beliefs That Will Affect Care: None marital status: Single Current Living Situation: Other Current Living Situation Comment: 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 Feels Safe at Home: Yes Assistive Devices: Glasses Review of Systems Review of Systems: All systems reviewed & are unremarkable except as noted in HPI & below Physical Exam Constitutional: well developed, well nourished, + acute distress and cooperative Eyes: + anicteric sclerae Neck: trachea midline, no thyromegaly Respiratory: normal respiratory effort, lungs clear to auscultation Cardiovascular: RRR, no murmur, no edema Gastrointestinal (Abdomen): Inspection/Auscultation: abdomen normal to inspection Percussion/Palpation: + abdomen tender (mild tenderness diffusely) and abdomen soft Skin: no rashes, warm and dry Neurologic: CN's II-XI intact bilaterally, moves all extremities and awake Psychiatric: Orientation: alert, oriented x 3 and cooperative Eye Contact: + fair eye contact Affect: + anxious affect Lymphatic: no cervical or axillary lymphadenopathy Results & Data Results & Data ([facility]) Vital Signs (Past 12 Hours) Vital Signs Temp Pulse Pulse Resp BP BP Pulse Ox 08/01/21 17:00 110 H 23 105/49 L 94 08/01/21 15:00 116 H 23 121/77 96 08/01/21 13:24 16 106/66 96 08/01/21 13:08 36.7 C 137 H 18 117/60 97 Code Status & VTE Plan VTE Prophylaxis Plan VTE Prophylaxis will be ordered: Yes Supervising Physician Co-Signing Physician Notes Resident Physician Supervision Note: I independently interviewed and examined the patient and verified the knox history and physical, reviewed labs and image studies and agree with resident Dr. Sánchez findings and care plan. Resident Activity Tracking Resident Involvement: Resident Care Provided Care Provided: Adult Hospital Medicine
[2021-08-01] MEDS ORDERED: KETOROLAC 30 MG/ML VIAL IV ONE (19:32)
[2021-08-01 19:43] LABS: INR 1.1 (0.9-1.1); Prothrombin Time 10.9 Seconds (9.0-12.0)
[2021-08-01 19:47] LABS: D Dimer 1830 ug/L FEU (0-500)
[2021-08-01] MEDS ORDERED: ACETAMINOPHEN 325 MG TAB PO PRN (20:47)
[2021-08-01] MEDS: CETIRIZINE HCL 10 MG TABLET PO SCH (22:17)
[2021-08-01] MEDS: SERTRALINE HCL 50 MG TABLET PO SCH (22:17)
[2021-08-01] MEDS: ENOXAPARIN INJ 40 MG/0.4 ML SYR SQ SCH (22:29)
[2021-08-01] MEDS: SODIUM CHLORIDE 0.45 % 1,000 ML IV SCH (22:32)
[2021-08-01] MEDS: HYDROmorphone INJ 0.5 MG/0.5 ML SYR IV PRN (22:58)
[2021-08-02] MEDS: HYDROmorphone INJ 0.5 MG/0.5 ML SYR IV PRN ×6 (05:51→20:11)
[2021-08-02] MEDS: SODIUM CHLORIDE 0.45 % 1,000 ML IV SCH (06:34)
[2021-08-02 07:33] LABS: Basophils # (auto) 0.04 K/uL (0-0.2); Basophils % (auto) 0.4 %; Eosinophils # (auto) 0.21 K/uL (0-0.5); Hematocrit (blood only) 30.4 % (37-47); Hemoglobin 10.8 g/dL (12.0-16.0); Immature Granulocytes # (auto) 0.02 K/uL (0.00-0.02); Immature Granulocytes % (auto) 0.2 %; Lymphocytes # (auto) 1.08 K/uL (1.2-3.4); Lymphocytes % (auto) 10.2 %; Mean Corpuscular Hemoglobin 31.1 pg (25-34); Mean Corpuscular Hgb Conc 35.5 g/dL (32-36); Mean Corpuscular Volume 87.6 fL (80-100); Mean Platelet Volume 9.6 fL (7.4-10.4); Monocytes # (auto) 1.11 K/uL (0.11-0.59); Monocytes % (auto) 10.5 %; Neutrophils % (auto) 76.7 %; Nucleated RBC # (auto) 0.05 K/uL (0-0); Nucleated RBC % (auto) 0.5 %; Platelet Count 259 K/uL (130-400); RDW Coefficient of Variation 15.7 % (11.5-14.5); RDW Standard Deviation 49.9 fL (36.4-46.3); Red Blood Count 3.47 M/uL (4.2-5.4); White Blood Count 10.56 K/uL (4.8-10.8)
[2021-08-02 07:40] LABS: D Dimer 2250 ug/L FEU (0-500)
[2021-08-02 07:44] LABS: Alanine Aminotransferase 18 (12-78); Albumin Level 3.4 gm/dl (3.4-5.0); Aspartate Aminotransferase 26 U/L (15-37); BUN Creatinine Ratio 9.6 (10-20); Blood Urea Nitrogen 6 mg/dl (7-18); Calcium 8.4 mg/dl (8.5-10.1); Carbon Dioxide 23 mmol/L (21-32); Chloride 107 mmol/L (98-107); Creatinine Clr Calc Pharmacy 144.1 ml/min; Est GFR (African American) > 150.0 ml/min; Est GFR (Non-African American) 131.9 ml/min; Glucose 103 mg/dl (70-99); Potassium 3.8 mmol/L (3.5-5.1); Sodium 136 mmol/L (136-145)
[2021-08-02 07:47] LABS: Albumin Globulin Ratio 1.1 (0.9-2); Alkaline Phosphatase 47 U/L (45-117); Bilirubin,Total 1.5 mg/dl (0.2-1); Creatine Kinase 80 U/L (26-192); Globulin 3.1 gm/dl (2.5-4.0); Total Protein 6.5 gm/dl (6.4-8.2)
[2021-08-02] MEDS: ENOXAPARIN INJ 40 MG/0.4 ML SYR SQ SCH ×2 (08:09→20:12)
[2021-08-02] MEDS: FOLIC ACID 1 MG TAB PO SCH (08:09)
[2021-08-02] MEDS: KETOROLAC 30 MG/ML VIAL IV PRN ×2 (08:59→16:54)
--- NOTE | 2021-08-02 11:40 | Hospitalist Progress Note ---
Date of Service August 02, 2021 Assessment & Plan (1) Sickle cell crisis: Plan: sickle cell crises likely due to Covid-19 infection -Hgb 10.8. Transfuse if <7. -Pain management with dilaudid 0.5 mg - increase frequency to q2hrs, toradol 30 mg prn. Once pain better controlled - to Wean pain management down to her home regimen of tramadol 15 mg q6h prn. -Supplemental O2 as needed, current saturation at 99 on RA -1/2 NSS at 125 ml/Hr- 2 bags -Continue home folic acid -Zofran prn for nausea -Trend CBC, CMP (2) COVID-19: Plan: -COVID-19 positive, COVID vaccinated x 2, Chest xray clear at this time -COVID unit with contact precautions -No hypoxia - 99% on RA at this point does not qualify for remdesivir, will monitor for severe disease -since symptomatically doing well with no hypoxia - will disregard d dimer elevation. d/c series. -Lovenox 40 mg BID for DVT prophylaxis -Daily CBC, CMP, CK, Dispo: Med/Surg w/ tele Diet: Regualr DVT Prophylaxis: Lovenox (COVID) Code: Full code Admission and Anticipated Discharge Date Admission Date: August 01, 2021 Subjective Pain still severe. not controlled with current frequency of dilaudid. no shortness of breath, no fever Physical Exam Constitutional: WD/WN, vitals as above (in mild distress from pain) Neck: trachea midline, no thyromegaly Respiratory: normal respiratory effort, lungs clear to auscultation Cardiovascular: RRR, no murmur, no edema Skin: no rashes, warm and dry Psychiatric: A+Ox3, euthymic affect Results & Data Results & Data ([facility]) Vital Signs (Past 12 Hours) Vital Signs Temp Pulse Pulse Pulse Resp BP Pulse Ox 08/02/21 09:44 104 H 08/02/21 08:27 37.4 C 96 H 18 107/68 99 08/02/21 04:14 37.6 C H 98 H 20 109/75 96 08/02/21 00:27 37.3 C 106 H 18 125/78 94
[2021-08-02] MEDS: CETIRIZINE HCL 10 MG TABLET PO SCH (20:11)
[2021-08-02] MEDS: SERTRALINE HCL 50 MG TABLET PO SCH (20:12)
[2021-08-03] MEDS: HYDROmorphone INJ 0.5 MG/0.5 ML SYR IV PRN ×5 (01:51→12:13)
[2021-08-03] MEDS: KETOROLAC 30 MG/ML VIAL IV PRN ×4 (01:51→21:26)
[2021-08-03 06:57] LABS: Basophils # (auto) 0.05 K/uL (0-0.2); Basophils % (auto) 0.6 %; Eosinophils # (auto) 0.41 K/uL (0-0.5); Eosinophils % (auto) 5.1 %; Hemoglobin 10.7 g/dL (12.0-16.0); Immature Granulocytes # (auto) 0.02 K/uL (0.00-0.02); Immature Granulocytes % (auto) 0.3 %; Lymphocytes # (auto) 1.93 K/uL (1.2-3.4); Lymphocytes % (auto) 24.1 %; Mean Corpuscular Hemoglobin 31.1 pg (25-34); Mean Corpuscular Hgb Conc 35.7 g/dL (32-36); Mean Corpuscular Volume 87.2 fL (80-100); Mean Platelet Volume 10.2 fL (7.4-10.4); Monocytes # (auto) 1.25 K/uL (0.11-0.59); Monocytes % (auto) 15.6 %; Neutrophils # (auto) 4.34 K/uL (1.4-6.5); Neutrophils % (auto) 54.3 %; Nucleated RBC # (auto) 0.03 K/uL (0-0); Nucleated RBC % (auto) 0.4 %; Platelet Count 226 K/uL (130-400); RDW Coefficient of Variation 15.7 % (11.5-14.5); Red Blood Count 3.44 M/uL (4.2-5.4)
[2021-08-03 07:25] LABS: Alanine Aminotransferase 22 (12-78); Albumin Level 3.3 gm/dl (3.4-5.0); Aspartate Aminotransferase 31 U/L (15-37); BUN Creatinine Ratio 13.8 (10-20); Blood Urea Nitrogen 8 mg/dl (7-18); Calcium 8.5 mg/dl (8.5-10.1); Carbon Dioxide 24 mmol/L (21-32); Chloride 109 mmol/L (98-107); Creatinine Clr Calc Pharmacy 149.6 ml/min; Est GFR (African American) > 150.0 ml/min; Est GFR (Non-African American) 133.5 ml/min; Glucose 92 mg/dl (70-99); Potassium 4.1 mmol/L (3.5-5.1); Sodium 139 mmol/L (136-145)
[2021-08-03 07:28] LABS: Albumin Globulin Ratio 1.1 (0.9-2); Alkaline Phosphatase 47 U/L (45-117); Bilirubin,Total 1.5 mg/dl (0.2-1); Creatine Kinase 70 U/L (26-192); Globulin 3.1 gm/dl (2.5-4.0); Total Protein 6.4 gm/dl (6.4-8.2)
[2021-08-03] MEDS: POLYETHYLENE (MIRALAX) 17 GM PACK PO PRN ×2 (08:14→22:42)
[2021-08-03] MEDS: FOLIC ACID 1 MG TAB PO SCH (08:15)
--- NOTE | 2021-08-03 12:52 | Hospitalist Progress Note ---
Date of Service August 03, 2021 Assessment & Plan (1) Sickle cell crisis: Plan: sickle cell crises likely due to Covid-19 infection -Hgb 10.7. Transfuse if <7. -Pain management with dilaudid - since pain uncontrolled - increase dose to 1mgs q2HWA, toradol 30 mg prn. Once pain better controlled - to Wean pain management down to her home regimen of tramadol 15 mg q6h prn. monitor for resp depression since utilizing higher dose of dilaudid. -Supplemental O2 as needed, current saturation at 97 on RA -1/2 NSS at 125 ml/Hr- 2 bags -Continue home folic acid -Zofran prn for nausea -Trend CBC, CMP (2) COVID-19: Plan: -COVID-19 positive, COVID vaccinated x 2, Chest xray clear on admission -COVID unit with contact precautions -No hypoxia - 97% on RA at this point does not qualify for remdesivir, will monitor for severe disease -since symptomatically doing well with no hypoxia - disregard d dimer elevation. -Lovenox 40 mg BID for DVT prophylaxis -Daily CBC, CMP, CK, Dispo: Med/Surg w/ tele Diet: Regualr DVT Prophylaxis: Lovenox (COVID) Code: Full code Admission and Anticipated Discharge Date Admission Date: August 01, 2021 Subjective Pain still severe. had a rough night. current dose of dilaudid at 0.5mgs q2hrs not controlling the pain no shortness of breath, no fever Physical Exam Constitutional: WD/WN, vitals as above (in mild distress from pain) Neck: trachea midline, no thyromegaly Respiratory: normal respiratory effort, lungs clear to auscultation Cardiovascular: regular rate Skin: no rashes, warm and dry Psychiatric: A+Ox3, euthymic affect Results & Data Results & Data ([facility]) Vital Signs (Past 12 Hours) Vital Signs Temp Pulse Pulse Resp BP Pulse Ox 08/03/21 11:49 36.9 C 74 20 91/55 L 97 08/03/21 10:41 73 08/03/21 07:52 36.9 C 84 18 111/59 L 98 08/03/21 03:42 36.7 C 82 16 98/63 L 98
[2021-08-03] MEDS: ENOXAPARIN INJ 40 MG/0.4 ML SYR SQ SCH ×3 (13:39→22:33)
[2021-08-03] MEDS: HYDROmorphone INJ 1 MG/ML SYRINGE IV PRN ×4 (14:50→21:27)
[2021-08-03] MEDS: SERTRALINE HCL 50 MG TABLET PO SCH (20:26)
[2021-08-03] MEDS: CETIRIZINE HCL 10 MG TABLET PO SCH (20:26)
[2021-08-03] MEDS: ONDANSETRON INJ 2 MG/ML 2 ML VIAL IV PRN (21:26)
[2021-08-03] MEDS: SODIUM CHLORIDE 0.45 % 1,000 ML IV SCH (22:55)
[2021-08-04] MEDS: HYDROmorphone INJ 1 MG/ML SYRINGE IV PRN ×9 (00:06→22:40)
[2021-08-04] MEDS: KETOROLAC 30 MG/ML VIAL IV PRN ×3 (05:35→20:20)
[2021-08-04 06:30] LABS: Basophils # (auto) 0.04 K/uL (0-0.2); Basophils % (auto) 0.7 %; Eosinophils # (auto) 0.17 K/uL (0-0.5); Hematocrit (blood only) 29.5 % (37-47); Hemoglobin 10.4 g/dL (12.0-16.0); Immature Granulocytes # (auto) 0.01 K/uL (0.00-0.02); Immature Granulocytes % (auto) 0.2 %; Lymphocytes # (auto) 2.45 K/uL (1.2-3.4); Lymphocytes % (auto) 43.8 %; Mean Corpuscular Hemoglobin 30.7 pg (25-34); Mean Corpuscular Hgb Conc 35.3 g/dL (32-36); Mean Platelet Volume 10.3 fL (7.4-10.4); Monocytes # (auto) 0.84 K/uL (0.11-0.59); Neutrophils # (auto) 2.09 K/uL (1.4-6.5); Neutrophils % (auto) 37.3 %; Nucleated RBC # (auto) 0.06 K/uL (0-0); Nucleated RBC % (auto) 1.1 %; Platelet Count 262 K/uL (130-400); RDW Coefficient of Variation 15.5 % (11.5-14.5); RDW Standard Deviation 49.4 fL (36.4-46.3); Red Blood Count 3.39 M/uL (4.2-5.4)
[2021-08-04 07:03] LABS: Alanine Aminotransferase 21 (12-78); Albumin Level 3.3 gm/dl (3.4-5.0); Aspartate Aminotransferase 35 U/L (15-37); BUN Creatinine Ratio 7.2 (10-20); Blood Urea Nitrogen 4 mg/dl (7-18); Calcium 8.3 mg/dl (8.5-10.1); Carbon Dioxide 25 mmol/L (21-32); Chloride 105 mmol/L (98-107); Creatinine Clr Calc Pharmacy 140.5 ml/min; Est GFR (African American) > 150.0 ml/min; Est GFR (Non-African American) 130.5 ml/min; Glucose 108 mg/dl (70-99); Potassium 3.8 mmol/L (3.5-5.1); Sodium 137 mmol/L (136-145)
[2021-08-04 07:06] LABS: Albumin Globulin Ratio 1.1 (0.9-2); Alkaline Phosphatase 46 U/L (45-117); Bilirubin,Total 1.5 mg/dl (0.2-1); Creatine Kinase 79 U/L (26-192); Total Protein 6.3 gm/dl (6.4-8.2)
[2021-08-04] MEDS: SODIUM CHLORIDE 0.45 % 1,000 ML IV SCH (07:46)
[2021-08-04] MEDS: ONDANSETRON INJ 2 MG/ML 2 ML VIAL IV PRN (08:18)
[2021-08-04] MEDS: POLYETHYLENE (MIRALAX) 17 GM PACK PO PRN (08:18)
[2021-08-04] MEDS: ENOXAPARIN INJ 40 MG/0.4 ML SYR SQ SCH ×2 (08:18→20:21)
[2021-08-04] MEDS: FOLIC ACID 1 MG TAB PO SCH (08:19)
[2021-08-04] MEDS: SENNA 8.6 MG TAB PO SCH (14:41)
--- NOTE | 2021-08-04 15:49 | Hospitalist Progress Note ---
Date of Service August 04, 2021 Assessment & Plan (1) Sickle cell crisis: Plan: Sickle Cell Crisis sickle cell crises due to Covid-19 infection -Hgb 10. Transfuse if <7. -Pain management with dilaudid - pain better controlled with 1mgs q2HWA, toradol 30 mg prn. continue current dose for 24hrs and reassess in am. monitor for resp depression since utilizing higher dose of dilaudid. -Once pain better controlled - to Wean pain management down to her home regimen of tramadol 15 mg q6h prn. -Supplemental O2 as needed, current saturation at 98 on RA -Received IVF on admission. Added 2 L 08/03 due to nausea and decreased PO intake. Reassess in am. -Continue home folic acid -Zofran prn for nausea -Trend CBC, CMP COVID- 19 -COVID-19 positive, COVID vaccinated x 2, Chest xray clear on admission -No hypoxia - 98% on RA at this point does not qualify for remdesivir, will monitor for severe disease -since symptomatically doing well with no hypoxia - disregard d dimer elevation. -Lovenox 40 mg BID for DVT prophylaxis -Daily CBC, CMP, CK, Nausea -? sec to acute illness and worsened by high dose narcotics? -reassess in am and wean narcotics as able -add senna -add PPI -prn IVF Dispo: Med/Surg w/ tele Diet: Regualr DVT Prophylaxis: Lovenox (COVID) Code: Full code (2) COVID-19: Admission and Anticipated Discharge Date Admission Date: August 01, 2021 Subjective current dose of dilaudid seems to be controlling the pain better has been feeling nauseous and appetite is down. no bowel movement since hospitalized. no shortness of breath, no fever Physical Exam Constitutional: WD/WN, vitals as above (in mild distress from pain) Neck: trachea midline, no thyromegaly Respiratory: normal respiratory effort, lungs clear to auscultation Cardiovascular: RRR, no murmur, no edema Skin: no rashes, warm and dry Psychiatric: A+Ox3, euthymic affect Results & Data Results & Data ([facility]) Vital Signs (Past 12 Hours) Vital Signs Temp Pulse Pulse Resp BP Pulse Ox 08/04/21 14:13 105/68 08/04/21 11:46 36.8 C 82 18 95/57 L 98 08/04/21 11:17 84 08/04/21 07:37 36.7 C 92 H 16 100/62 97
[2021-08-04] MEDS: PANTOprazole 40 MG TAB PO SCH (18:38)
[2021-08-04] MEDS: CETIRIZINE HCL 10 MG TABLET PO SCH (20:22)
[2021-08-04] MEDS: SERTRALINE HCL 50 MG TABLET PO SCH (20:22)
[2021-08-05] MEDS: HYDROmorphone INJ 1 MG/ML SYRINGE IV PRN ×4 (01:09→08:56)
[2021-08-05] MEDS: KETOROLAC 30 MG/ML VIAL IV PRN (03:44)
[2021-08-05 06:50] LABS: Basophils # (auto) 0.06 K/uL (0-0.2); Basophils % (auto) 0.8 %; Eosinophils # (auto) 0.28 K/uL (0-0.5); Eosinophils % (auto) 3.7 %; Hematocrit (blood only) 29.4 % (37-47); Hemoglobin 10.4 g/dL (12.0-16.0); Immature Granulocytes # (auto) 0.01 K/uL (0.00-0.02); Immature Granulocytes % (auto) 0.1 %; Lymphocytes # (auto) 3.71 K/uL (1.2-3.4); Lymphocytes % (auto) 49.1 %; Mean Corpuscular Hemoglobin 30.7 pg (25-34); Mean Corpuscular Hgb Conc 35.4 g/dL (32-36); Mean Corpuscular Volume 86.7 fL (80-100); Mean Platelet Volume 9.9 fL (7.4-10.4); Monocytes # (auto) 1.26 K/uL (0.11-0.59); Monocytes % (auto) 16.7 %; Neutrophils # (auto) 2.24 K/uL (1.4-6.5); Neutrophils % (auto) 29.6 %; Nucleated RBC # (auto) 0.17 K/uL (0-0); Nucleated RBC % (auto) 2.2 %; Platelet Count 287 K/uL (130-400); RDW Coefficient of Variation 15.6 % (11.5-14.5); Red Blood Count 3.39 M/uL (4.2-5.4); White Blood Count 7.56 K/uL (4.8-10.8)
[2021-08-05 07:14] LABS: Target Cells 2+
[2021-08-05 07:24] LABS: Alanine Aminotransferase 27 (12-78); Albumin Level 3.3 gm/dl (3.4-5.0); Aspartate Aminotransferase 43 U/L (15-37); BUN Creatinine Ratio 9.3 (10-20); Blood Urea Nitrogen 6 mg/dl (7-18); Calcium 8.9 mg/dl (8.5-10.1); Carbon Dioxide 28 mmol/L (21-32); Chloride 106 mmol/L (98-107); Creatinine Clr Calc Pharmacy 141.9 ml/min; Est GFR (African American) > 150.0 ml/min; Est GFR (Non-African American) 131.2 ml/min; Glucose 90 mg/dl (70-99); Potassium 4.3 mmol/L (3.5-5.1); Sodium 139 mmol/L (136-145)
[2021-08-05 07:26] LABS: Albumin Globulin Ratio 1.1 (0.9-2); Alkaline Phosphatase 48 U/L (45-117); Bilirubin,Total 1.6 mg/dl (0.2-1); Creatine Kinase 87 U/L (26-192); Globulin 3.1 gm/dl (2.5-4.0); Total Protein 6.4 gm/dl (6.4-8.2)
[2021-08-05] MEDS: FOLIC ACID 1 MG TAB PO SCH (09:02)
[2021-08-05] MEDS: SENNA 8.6 MG TAB PO SCH (09:02)
[2021-08-05] MEDS: ENOXAPARIN INJ 40 MG/0.4 ML SYR SQ SCH ×2 (09:03→20:42)
[2021-08-05] MEDS: PANTOprazole 40 MG TAB PO SCH (09:03)
[2021-08-05] MEDS ORDERED: HYDROmorphone HCL 0.5MG/ML 50 ML CASSETTE IV PRN (10:50)
[2021-08-05] MEDS ORDERED: NALOXONE HCL 0.4 MG/1 ML VIAL/CARP IV PRN (10:50)
[2021-08-05] MEDS ORDERED: HYDROmorphone INJ 1 MG/ML SYRINGE IV STA (10:56)
[2021-08-05] MEDS ORDERED: SODIUM CHLORIDE 0.9% 1000ML 1,000 ML IV SCH (11:00)
[2021-08-05] MEDS: POLYETHYLENE (MIRALAX) 17 GM PACK PO SCH ×2 (11:50→20:41)
[2021-08-05] MEDS: SODIUM CHLORIDE 0.45 % 1,000 ML IV SCH (12:24)
[2021-08-05] MEDS: ACETAMINOPHEN 325 MG TAB PO SCH ×3 (12:38→20:42)
[2021-08-05] MEDS ORDERED: HYDROmorphone PCA 30 MG/30 ML IV PRN (13:54)
--- NOTE | 2021-08-05 19:31 | Hospitalist Progress Note ---
Date of Service August 05, 2021 Assessment & Plan (1) Sickle cell crisis: Plan: Sickle Cell Crisis sickle cell crises due to Covid-19 infection -Hgb remains greater than 10. Transfuse if <7. 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, scheduled Tylenol -Home once pain control is better COVID- 19 -COVID-19 positive, COVID vaccinated x 2, Chest xray clear on admission -No hypoxia - 98% on RA symptomatically doing very well from a Covid standpointreally just appears more consistent with a sickle cell crisis precipitated by Covid Nausea -Seems to have resolved today Dispo: Stable for MedSurg, home once pain is controlled Diet: Regualr DVT Prophylaxis: Lovenox (COVID) Code: Full code (2) COVID-19: Admission and Anticipated Discharge Date Admission Date: August 01, 2021 Subjective Simultaneously wants to get home soon as possible, but notes that her pain is not under nearly good enough control. Pain is predominantly in her back and in her kneeswhich she notes is pretty typical for her sickle cell crises. She notes that she has unfortunately had several crises recentlyand was just admitted to the hospital earlier this fall twice and has been admitted at least few times this year overall She follows with hematology back in [place], and is not on hydroxyurea or other chronic therapy. She notes that she is interested in starting something like this. No chest pain no shortness of breath Review of Systems Review of Systems: All systems reviewed & are unremarkable except as noted in HPI & below Physical Exam Physical Exam: In general she is awake and alert pleasant no distress. HEENT normocephalic atraumatic mucous membranes moist. Breathing unlabored no accessory muscle use good effort. Skin shows no rashes no pallor or icterus. Neuro without focal deficits. Results & Data Results & Data ([facility]) Vital Signs (Past 12 Hours) Vital Signs Temp Pulse Pulse Resp BP BP Pulse Ox 08/05/21 19:16 98.4 F 90 18 107/70 98 08/05/21 16:01 98.6 F 82 19 109/76 96 08/05/21 14:17 99 H 08/05/21 08:16 98.4 F 79 18 92/55 L 96 PG Care Time/CCT Total # of Minutes Spent Total Time Spent with Patient: Total time spent is greater than 50% in coordination of care (as documented) at patient's floor/unit and/or counseling patient: Coding Level of Care Code 43866 Subseq Hosp Care Lvl 3 Diagnoses Sickle cell crisis D57.00 COVID-19 U07.1
[2021-08-05] MEDS: SERTRALINE HCL 50 MG TABLET PO SCH (20:41)
[2021-08-05] MEDS: CETIRIZINE HCL 10 MG TABLET PO SCH (20:42)
[2021-08-06] MEDS: SODIUM CHLORIDE 0.45 % 1,000 ML IV SCH ×2 (04:27→16:29)
[2021-08-06 07:08] LABS: Basophils # (auto) 0.09 K/uL (0-0.2); Basophils % (auto) 1.2 %; Eosinophils # (auto) 0.47 K/uL (0-0.5); Eosinophils % (auto) 6.4 %; Hematocrit (blood only) 28.5 % (37-47); Hemoglobin 10.1 g/dL (12.0-16.0); Immature Granulocytes # (auto) 0.01 K/uL (0.00-0.02); Immature Granulocytes % (auto) 0.1 %; Lymphocytes % (auto) 49.1 %; Mean Corpuscular Hgb Conc 35.4 g/dL (32-36); Mean Corpuscular Volume 87.4 fL (80-100); Mean Platelet Volume 10.1 fL (7.4-10.4); Monocytes # (auto) 1.26 K/uL (0.11-0.59); Monocytes % (auto) 17.2 %; Nucleated RBC # (auto) 0.28 K/uL (0-0); Nucleated RBC % (auto) 3.9 %; Platelet Count 271 K/uL (130-400); RDW Coefficient of Variation 15.6 % (11.5-14.5); RDW Standard Deviation 49.3 fL (36.4-46.3); Red Blood Count 3.26 M/uL (4.2-5.4); White Blood Count 7.33 K/uL (4.8-10.8)
[2021-08-06 07:28] LABS: Spherocytes 1+; Target Cells 1+
[2021-08-06 07:52] LABS: Albumin Level 3.1 gm/dl (3.4-5.0); BUN Creatinine Ratio 8.9 (10-20); Calcium 8.8 mg/dl (8.5-10.1); Creatinine Clr Calc Pharmacy 135.1 ml/min; Est GFR (African American) 149.7 ml/min; Est GFR (Non-African American) 129.1 ml/min; Potassium 4.3 mmol/L (3.5-5.1)
[2021-08-06 07:54] LABS: Bilirubin,Total 1.3 mg/dl (0.2-1); Globulin 3.1 gm/dl (2.5-4.0); Total Protein 6.2 gm/dl (6.4-8.2)
[2021-08-06] MEDS: ACETAMINOPHEN 325 MG TAB PO SCH ×4 (08:48→20:59)
[2021-08-06] MEDS: SENNA 8.6 MG TAB PO SCH (08:49)
[2021-08-06] MEDS: FOLIC ACID 1 MG TAB PO SCH (08:49)
[2021-08-06] MEDS: POLYETHYLENE (MIRALAX) 17 GM PACK PO SCH ×2 (08:49→20:58)
[2021-08-06] MEDS: ENOXAPARIN INJ 40 MG/0.4 ML SYR SQ SCH ×3 (08:49→21:00)
[2021-08-06] MEDS: PANTOprazole 40 MG TAB PO SCH (08:49)
--- NOTE | 2021-08-06 17:33 | Hospitalist Progress Note ---
Date of Service August 06, 2021 Assessment & Plan (1) Sickle cell crisis: Plan: Sickle Cell Crisis sickle cell crises due to Covid-19 infection -Hgb remains greater than 10. Transfuse if <7. 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 -Home once pain control is better -no concerning signs or findings at this time COVID- 19 -COVID-19 positive, COVID vaccinated x 2, Chest xray clear on admission -No hypoxia - 98% on RA symptomatically doing very well from a Covid standpointreally just appears more consistent with a sickle cell crisis precipitated by Covid (only real covid sx are cough and sputum) Nausea -no complaints of this now Dispo: Stable for MedSurg, home once pain is controlled Diet: Regualr DVT Prophylaxis: Lovenox (COVID) Code: Full code (2) COVID-19: Admission and Anticipated Discharge Date Admission Date: August 01, 2021 Subjective pain doing better than yesterday still bad though. hurts to move, very weak. no cp no sob. does have a bit of a cough w sputum. after pt and i talked, she called mom and i updated mom over phone in pt's presence answered all questions to the best of my ability. 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 Review of Systems Review of Systems: All systems reviewed & are unremarkable except as noted in HPI & below Physical Exam Physical Exam: gen aao pleasant but fatigued nad heent nc at mmm lungs cta b/l no rr/w/ good effort skin no rashes no pallor or icterus no focal neuro deficits Results & Data Results & Data ([facility]) Vital Signs (Past 12 Hours) Vital Signs Temp Pulse Resp BP Pulse Ox 08/06/21 07:33 98.2 F 88 20 119/70 98 PG Care Time/CCT Total # of Minutes Spent Total Time Spent with Patient: Total time spent is greater than 50% in coordination of care (as documented) at patient's floor/unit and/or counseling patient: Coding Level of Care Code 43627 Subseq Hosp Care Lvl 3 Diagnoses Sickle cell crisis D57.00 COVID-19 U07.1
[2021-08-06] MEDS: SERTRALINE HCL 50 MG TABLET PO SCH (20:58)
[2021-08-06] MEDS: CETIRIZINE HCL 10 MG TABLET PO SCH (20:59)
[2021-08-07] MEDS: SODIUM CHLORIDE 0.45 % 1,000 ML IV SCH ×2 (04:47→17:13)
[2021-08-07 07:20] LABS: Creatinine Clr Calc Pharmacy 135.1 ml/min; Est GFR (African American) 149.7 ml/min; Est GFR (Non-African American) 129.1 ml/min
[2021-08-07] MEDS: ENOXAPARIN INJ 40 MG/0.4 ML SYR SQ SCH ×2 (09:18→21:06)
[2021-08-07] MEDS: ACETAMINOPHEN 325 MG TAB PO SCH ×4 (09:19→21:06)
[2021-08-07] MEDS: CHOLECALCIFEROL 1,000 UNITS 25 MCG TAB PO SCH (09:19)
[2021-08-07] MEDS: POLYETHYLENE (MIRALAX) 17 GM PACK PO SCH ×2 (09:19→21:04)
[2021-08-07] MEDS: MULTIVITAMIN TAB PO SCH (09:20)
[2021-08-07] MEDS: FOLIC ACID 1 MG TAB PO SCH (09:20)
[2021-08-07] MEDS: SENNA 8.6 MG TAB PO SCH (09:20)
[2021-08-07] MEDS: PANTOprazole 40 MG TAB PO SCH (09:21)
[2021-08-07] MEDS ORDERED: HYDROmorphone INJ 1 MG/ML SYRINGE IV PRN (14:33)
[2021-08-07] MEDS: oxyCODONE HCL IR 5 MG TAB (IMMEDIATE RELEASE) PO PRN ×2 (15:40→21:04)
--- NOTE | 2021-08-07 17:41 | Hospitalist Progress Note ---
Date of Service August 07, 2021 Assessment & Plan (1) Sickle cell crisis: Plan: Sickle Cell Crisis sickle cell crises due to Covid-19 infection -Hgb remains greater than 10. Transfuse if <7. -Cautiously transition pain control to p.o.keep IV Dilaudid as needed refractory pain, continue IV fluids for now. -If pain is tolerable on p.o. meds, hopefully home soon COVID- 19 -COVID-19 positive, COVID vaccinated x 2, Chest xray clear on admission minimal respiratory symptoms -No hypoxia - 98% on RA symptomatically doing very well from a Covid standpointreally just appears more consistent with a sickle cell crisis precipitated by Covid (only real covid sx are cough and sputum) Nausea -no complaints of this now Dispo: Stable on MedSurg, home once pain is controlled Diet: Regualr DVT Prophylaxis: Lovenox (COVID) Code: Full code Admission and Anticipated Discharge Date Admission Date: August 01, 2021 Subjective Feeling a bit betterpain still quite significant but under better control. Able to get around a little bit better with less pain. Breathing symptoms are still the sameno significant dyspnea, does have a little bit of cough chest congestion and mucus. Would like to start to work towards transitioning off of IV pain medicines to p.o. to see if she can tolerate/have adequate pain control to look towards going home. Review of Systems Review of Systems: All systems reviewed & are unremarkable except as noted in HPI & below Physical Exam Physical Exam: In general she is awake and alert pleasant no distress. HEENT normocephalic atraumatic mucous membranes moist. Breathing unlabored no accessory muscle use good effort. Skin shows no rashes no pallor or icterus. Neuro without focal deficits. Results & Data Results & Data ([facility]) Vital Signs (Past 12 Hours) Vital Signs Temp Pulse Resp BP Pulse Ox 08/07/21 15:47 98.4 F 79 18 108/70 96 08/07/21 11:43 98.2 F 78 18 115/47 L 97 08/07/21 08:04 97.9 F 96 H 19 107/72 96 PG Care Time/CCT Total # of Minutes Spent Total Time Spent with Patient: Total time spent is greater than 50% in coordination of care (as documented) at patient's floor/unit and/or counseling patient: Coding Level of Care Code 60734 Subseq Hosp Care Lvl 3 Diagnoses Sickle cell crisis D57.00
[2021-08-07] MEDS: SERTRALINE HCL 50 MG TABLET PO SCH (21:05)
[2021-08-07] MEDS: CETIRIZINE HCL 10 MG TABLET PO SCH (21:05)
[2021-08-08] MEDS: SODIUM CHLORIDE 0.45 % 1,000 ML IV SCH (05:42)
[2021-08-08 07:09] LABS: Basophils # (auto) 0.12 K/uL (0-0.2); Basophils % (auto) 1.3 %; Eosinophils # (auto) 0.53 K/uL (0-0.5); Eosinophils % (auto) 5.7 %; Hematocrit (blood only) 30.1 % (37-47); Hemoglobin 10.6 g/dL (12.0-16.0); Immature Granulocytes # (auto) 0.05 K/uL (0.00-0.02); Immature Granulocytes % (auto) 0.5 %; Lymphocytes # (auto) 2.22 K/uL (1.2-3.4); Lymphocytes % (auto) 23.9 %; Mean Corpuscular Hemoglobin 30.5 pg (25-34); Mean Corpuscular Hgb Conc 35.2 g/dL (32-36); Mean Corpuscular Volume 86.5 fL (80-100); Mean Platelet Volume 9.7 fL (7.4-10.4); Monocytes # (auto) 1.65 K/uL (0.11-0.59); Monocytes % (auto) 17.8 %; Neutrophils # (auto) 4.71 K/uL (1.4-6.5); Neutrophils % (auto) 50.8 %; Nucleated RBC # (auto) 0.59 K/uL (0-0); Nucleated RBC % (auto) 6.4 %; Platelet Count 323 K/uL (130-400); RDW Standard Deviation 50.2 fL (36.4-46.3); Red Blood Count 3.48 M/uL (4.2-5.4); White Blood Count 9.28 K/uL (4.8-10.8)
[2021-08-08 07:35] LABS: Albumin Level 3.2 gm/dl (3.4-5.0); BUN Creatinine Ratio 10.1 (10-20); Est GFR (African American) 148.1 ml/min; Est GFR (Non-African American) 127.8 ml/min; Potassium 4.2 mmol/L (3.5-5.1)
[2021-08-08 07:37] LABS: Polychromasia 1+; Target Cells 1+
[2021-08-08 07:38] LABS: Albumin Globulin Ratio 0.9 (0.9-2); Bilirubin,Total 1.1 mg/dl (0.2-1); Globulin 3.5 gm/dl (2.5-4.0); Total Protein 6.7 gm/dl (6.4-8.2)
[2021-08-08] MEDS: POLYETHYLENE (MIRALAX) 17 GM PACK PO SCH ×2 (08:45→08:49)
[2021-08-08] MEDS: CHOLECALCIFEROL 1,000 UNITS 25 MCG TAB PO SCH (08:46)
[2021-08-08] MEDS: FOLIC ACID 1 MG TAB PO SCH (08:46)
[2021-08-08] MEDS: PANTOprazole 40 MG TAB PO SCH (08:46)
[2021-08-08] MEDS: ENOXAPARIN INJ 40 MG/0.4 ML SYR SQ SCH ×2 (08:46→08:49)
[2021-08-08] MEDS: SENNA 8.6 MG TAB PO SCH (08:46)
[2021-08-08] MEDS: MULTIVITAMIN TAB PO SCH (08:46)
[2021-08-08] MEDS: ACETAMINOPHEN 325 MG TAB PO SCH ×2 (08:48→12:27)
--- NOTE | 2021-08-08 19:27 | Discharge Summary ---
Date of Service August 08, 2021 Admission HPI Per Admitting Provider This is a 21 year old female with the past medical history of Sickle cell anemia presenting to the inpatient service for the CC of sickle cell crisis. Pt has a hx of frequent episodes of sickle cell pain crises with the most recent being on July 05, 2021. At that time she had influenza which started her sickle cell crisis. She was in the hospital for 3 days being treated for her pain as well as her flu symptoms and she was discharged after. Patient reports that for the past 24 hours she has had progressively worsening pain in her knees and her back which is typical for her sickle cell crises. She attempted to utilize her home tramadol which has not put a dent into her pain. Additionally patient has stated that she is also had a cough and chest tightness for the past 24 to 48 hours. Patient reports that for the past week she is also felt generalized weakness and this morning actually needed help putting her clothes on due to how weak she felt. Currently patient feels that her pain is in 8 out of 10 prior to getting the Dilaudid in the ED, currently her pain is a 7 out of 10 and is asking for additional pain medication. Her pain is cyclic in nature. Patient is Covid vaccinated x2. Patient reports no other complaints at this time. Principal Diagnosis Sickle cell crisis precipitated by COVID-19 infection Discharge Exam In general she is awake and alert pleasant no distress. HEENT normocephalic atraumatic mucous membranes moist. Breathing unlabored no accessory muscle use good effort. Skin shows no rashes no pallor or icterus. Neuro without focal deficits. Discharge Data Allergies Allergy/AdvReac Type Severity Reaction Status Date / Time peanut Allergy Intermediate ITCHY HIVES Verified 08/01/21 13:55 Consultations 08/01/21 15:41 ED Decision to Admit Stat Hospital Course (1) Sickle cell crisis: Sickle Cell Crisis sickle cell crises due to Covid-19 infection -Hgb remains greater than 10. Was requiring IV pain medicine even as escalated as a Dilaudid TREE FALLER for a day or 2, but now is improved quite nicely, and has done overall well on p.o. Tylenol/p.o. oxycodone. She feels she is up to going home, and I certainly think she is stable to do so. Please see discharge instructionswill send home on a down titration of Tylenol/oxycodone. She will follow up with her primary ob/gyn physician to discuss/start on suppressive therapy such as hydroxyurea. COVID- 19 -COVID-19 positive, COVID vaccinated x 2, Chest xray clear on admission minimal respiratory symptoms -No hypoxia - 98% on RA symptomatically doing very well from a Covid standpointreally just appears more consistent with a sickle cell crisis precipitated by Covid (only real covid sx are cough and sputum) -Far enough into the course of illness that it is unlikely she will decompensate at this timeappears stable for home Nausea -no complaints of this now Dispo: Stable for home, see above/discharge instructions, outpatient follow-up Diet: Regualr DVT Prophylaxis: Lovenox was utilized during her stay Code: Full code Total Time Total Time Spent Total Time Spent (In Minutes): >30 Discharge Plan Discharge Items Patient Disposition: Home - Self-Care Reason For Visit: ABD PAIN Discharge Diagnosis: sickle cell flare up due to COVID Activity: Resume your previous activity Activity Comment: As tolerated, definitely do not push it Non-emergency contact: Primary Care Provider and Specialist Call non-emergency contact if: you have any medication questions and your symptoms worsen Follow-up/Referrals: Louann,[facility] [Primary Care Provider] - (PLEASE CALL S TO SCHEDULE A FOLLOW-UP DISCHARGE APPOINTMENT WITHIN 7-10 DAYS.) Diet: Regular Addtl Attending Provider Instructions: Sickle cell flareup related to COVID-19 -Fortunately are now looking better enough to get home. Also is quite fortunate that you never showed severe symptoms related to the Covid infection (see below) but really more were hospitalized because the Covid led to a pretty severe flareup of your sickle cell -Things are improvingyour labs are stable, it appears safe to get you home -Obviously the improvement from here may take a while, it is a bit hard to predict the futureI would recommend as follows for pain: -Take Tylenol 650 mg 3 times a day routinely for now (like we discussed you will not really feel effects from the dose when you take it, but it leaves a good foundation that when you take the oxycodone on top of it, you can sometimes get "2+2 = 5" kind of math) -Take the oxycodone 5 mg as needed for breakthrough pain. For now, you could take it as often as every 4 hours if you needthe goal being to have you start to space it out over the coming days. For the next 2 days, it would be totally okay to take it when you feel like you need it, after that, as long as you feel like you are improving, try to space it out a little bit further each time. The goal will be to eventually get rid of it altogether. As we discussed, it is really impossible to predict the future, so if you are getting close to the end of the prescription I sent, and are still having pretty significant painI would recommend getting seen by your ob/gyn physician at home (both to make sure nothing new/different/worse has happened, and also to be able to refill the prescription if needed) -We also want you to follow-up with your ob/gyn physician to talk about starting maintenance therapy such as hydroxyurea. As we discussed, you have had many flareups this year, and I have seen times where multiple sickle cell flareups can lead to not "just" bad sickle cell disease, but also bad chronic pain physiology that becomes almost a separate "spinoff" illness. (What ends up happening is whenever you have severe intense pain often enough, the nerves that carry the pain signals, and the part of your brain that since his pain, can start to have a pain signal be the "normal signal"this leads to pain physiology very similar to someone who has phantom limb painwhere the "root cause" of the pain might be under good control, but the nerves and pain [facility] in the brain continue to perceive pain anyway. The best way to avoid falling into this type of pain neurophysiology will be to control the sickle cell as best as we can, so that you have less painful flareups.) COVID-19 -As far as respiratory symptoms, you fortunately showed extremely mild symptoms. The chest congestion/cough/mucus all fit with the Covid, but you really fortunately never showed anything past that. Your vital signs have been beautiful, your oxygen numbers have been very normal, and it does not really appear that any specific intervention will be needed. As far as a quarantine., Given that you are still having symptoms, it is a little bit difficult to put a clear finish line, but as we discussed, assuming yourself to be infectious through this coming Thursday (August 12) should be a pretty reasonable timeframe Pending Studies at Discharge: No Stand-Alone Forms: My [facility], Smoking Cessation Medications and DC Order Prescriptions: New acetaminophen 325 mg Tablet 650 mg PO TID Qty: 90 RF: 0 oxycodone 5 mg Tablet 5 mg PO Q4 PRN (Reason: pain) Qty: 30 RF: 0 Continued cetirizine 10 mg tablet 10 mg PO HS RF: 0 ergocalciferol (vitamin D2) 1,250 mcg (50,000 unit) capsule 50,000 unit PO WK RF: 0 sertraline 25 mg tablet 75 mg PO HS RF: 0 folic acid 1 mg tablet 1 mg PO DAILY RF: 0 ondansetron 4 mg tablet,disintegrating 4 - 8 mg PO Q8H PRN (Reason: nausea and vomiting) Qty: 14 RF: 0 Discharge Orders: Discharge Order (Routine); Ordered 08/08/21 Ordered By: Patrick Robin Admission Data Admit Date/Time: 08/01/21 18:42 Attending Provider: Patrick Robin Admit Provider: Stiven Sánchez Primary Care Provider: Louann,[facility] Other Providers: Brittni Young Other Interventions: Discharge Summary Assessment (RN) Last Done: 08/08/21 13:54 Coding Level of Care Code D/C DAY MANAGEMENT >30 MINS Diagnoses Sickle cell crisis D57.00
== END 2021-08-08 14:50 | disposition home or self-care (01) | DRG 177 ==
LOC: ED 13:05 → SUATTDRO 18:42 → EDINP 18:42 → 2W 20:48

== ENCOUNTER 2021-12-01 23:21 | Observation (INO) ==
[2021-12-01] MEDS ORDERED: HYDROmorphone INJ 0.5 MG/0.5 ML SYR IV STA (23:38)
[2021-12-01] MEDS ORDERED: SODIUM CHLORIDE 0.9% 1000ML 2,000 ML IV ONE (23:38)
[2021-12-01] MEDS ORDERED: ONDANSETRON INJ 2 MG/ML 2 ML VIAL IV STA (23:39)
[2021-12-02 00:09] LABS: Basophils # (auto) 0.07 K/uL (0-0.2); Basophils % (auto) 0.4 %; Eosinophils # (auto) 0.34 K/uL (0-0.5); Eosinophils % (auto) 1.8 %; Hematocrit (blood only) 32.6 % (37-47); Hemoglobin 11.9 g/dL (12.0-16.0); Immature Granulocytes # (auto) 0.06 K/uL (0.00-0.02); Immature Granulocytes % (auto) 0.3 %; Lymphocytes # (auto) 1.86 K/uL (1.2-3.4); Lymphocytes % (auto) 9.7 %; Mean Corpuscular Hemoglobin 31.2 pg (25-34); Mean Corpuscular Hgb Conc 36.5 g/dL (32-36); Mean Corpuscular Volume 85.3 fL (80-100); Mean Platelet Volume 8.9 fL (7.4-10.4); Monocytes # (auto) 1.54 K/uL (0.11-0.59); Neutrophils # (auto) 15.39 K/uL (1.4-6.5); Neutrophils % (auto) 79.8 %; Nucleated RBC # (auto) 0.07 K/uL (0-0); Nucleated RBC % (auto) 0.3 %; Platelet Count 424 K/uL (130-400); RDW Coefficient of Variation 14.9 % (11.5-14.5); RDW Standard Deviation 46.5 fL (36.4-46.3); Red Blood Count 3.82 M/uL (4.2-5.4); Reticulocyte % 5.7 % (0.5-2.0); Reticulocytes # 0.22 10^6/uL (0.02-0.10); White Blood Count 19.26 K/uL (4.8-10.8)
[2021-12-02 00:25] LABS: Pregnancy Test, Serum Negative (Negative)
[2021-12-02 00:37] LABS: Albumin Globulin Ratio 1.7 (0.9-2); Albumin Level 4.5 gm/dl (3.4-5.0); BUN Creatinine Ratio 13.4 (10-20); Bilirubin,Total 2.5 mg/dl (0.2-1.0); Calcium 9.7 mg/dl (8.5-10.1); Creatinine Clr Calc Pharmacy 127.1 ml/min; Est GFR (African American) 146.7 ml/min; Est GFR (Non-African American) 126.5 ml/min; Globulin 2.7 gm/dl (2.5-4.0); Magnesium 1.7 mg/dl (1.7-2.4); Potassium 3.9 mmol/L (3.5-5.1); Total Protein 7.2 gm/dl (6.0-8.3)
[2021-12-02] MEDS ORDERED: HYDROmorphone INJ 1 MG/ML SYRINGE IV STA (01:06)
[2021-12-02] MEDS ORDERED: SODIUM CHLORIDE 0.9% 1000ML 1,000 ML IV ONE (01:58)
[2021-12-02] MEDS ORDERED: HYDROmorphone INJ 0.5 MG/0.5 ML SYR IV STA ×2 (02:12→06:55)
--- NOTE | 2021-12-02 03:27 | Emergency Department Note ---
History of Present Illness General Chief complaint: Pain (Generalized) Stated complaint: CICKLE CELL FLARE UP, BONE AND CHEST PAIN Time Seen by Provider: 12/01/21 23:29 Source: patient Mode of arrival: ambulatory Limitations: no limitations History of Present Illness Maximum Pain Intensity: 8 Patient is a 21-year-old female who presents to the emergency department for evaluation of a sickle cell flareup. She reports that pain started today. She states that the pain is an aching pain in all of her bones. She does report some pain in the center of her chest. She states this is typical of her sickle cell crises. She rates her discomfort a 10/10. She tried ibuprofen prior to arrival without relief. She does note that she recently visited her brother in the hospital and he had been diagnosed with a virus of some sort. She feels like she has some swollen glands in her neck and states she has had some green nasal discharge. She denies any fever/chills. She denies any abdominal pain or vomiting. Home Medications Medication Instructions Recorded Confirmed Type cetirizine 10 mg tablet 10 mg PO HS 04/18/20 08/01/21 History ergocalciferol (vitamin D2) 1,250 50,000 unit PO WK 04/18/20 08/01/21 History mcg (50,000 unit) capsule ondansetron 4 mg disintegrating 4 - 8 mg PO Q8H PRN #14 tab 02/28/21 08/01/21 Rx tablet sertraline 25 mg tablet 75 mg PO HS 07/02/21 08/01/21 History folic acid 1 mg tablet 1 mg PO DAILY 08/01/21 08/01/21 History acetaminophen 325 mg tablet 650 mg PO TID #90 tab 08/08/21 Rx Allergies Allergy/AdvReac Type Severity Reaction Status Date / Time peanut Allergy Intermediate ITCHY HIVES Verified 08/01/21 13:55 Past Med/Surg History Medical History (Updated 12/02/21 @ 05:50 by Laly Tovar PA-C) Anxiety Constipation COVID-19 Influenza A Leukocytosis Pneumonia Pyelonephritis Seasonal allergies Sepsis Sepsis Sickle cell anemia Sickle cell anemia with crisis Sickle cell crisis Splenomegaly Transaminitis Vaginal ulceration Surgical History No pertinent past surgical history Family History (Updated 12/02/21 @ 04:19 by Lul Mina MD) Brother Sickle cell anemia Other No significant family history Social History (Updated 12/02/21 @ 04:20 by Lul Mina MD) Smoking Status: Never smoker Second Hand Exposure: No; Hx Alcohol Use: No Hx Substance Use: No Preferred Language: [place] Communication Ability: Effective Media Sales Representative Required: No Beliefs That Will Affect Care: None marital status: Single Current Living Situation: Other Current Living Situation Comment: with roomates Other Information That Helps Us Care for You: No Feels Safe at Home: Yes Safety Concerns: Feels Safe At This Time Assistive Devices: Glasses Review of Systems A total of 10 systems reviewed and were otherwise negative Physical Exam Vital Signs Vital Signs - 24 hr 12/01/21 23:22 12/01/21 23:38 Temperature 37.1 C Temperature Source Temporal Artery Scan Pulse Rate 111 H 111 H Pulse Rhythm Regular Respiratory Rate 20 20 Respiratory Effort / Characteristics Non-Labored Spontaneous Respiratory Depth Normal Blood Pressure 118/87 Blood Pressure Mean 97 Blood Pressure Position Sitting Pulse Oximetry 99 100 Oxygen Delivery Method Room Air Room Air Sepsis Recent Fever Within 48 Hours No Sepsis New/Unexplained Change in Mental Status N/A Sepsis Action Taken by Nursing No Action Required VITALS: Vitals are noted on the nurse's note and reviewed by myself. GENERAL: 21-year-old female, tearful, uncomfortable appearing. SKIN: The skin was without rashes. EARS: External auditory canals clear, tympanic membranes pearly petersen without erythema or effusion bilaterally. EYES: Pupils equal round and reactive to light and accommodation. MOUTH: Mucous membranes moist. Tonsils are not enlarged. Pharynx without erythema or exudate. NECK: Supple without nuchal rigidity. No lymphadenopathy. HEART: Regular rate and rhythm without murmurs gallops or rubs. LUNGS: Clear to auscultation bilaterally without wheezes, rales or rhonchi. No retractions or accessory muscle use. ABDOMEN: Positive bowel sounds x 4. Soft, nontender to palpation. NEURO: Patient was alert and oriented to person place and time. Course Administered Medications Discontinued Medications Hydromorphone HCl (Hydromorphone Inj 0.5 Mg/0.5 Ml Syr) 0.5 mg IV NOW STA Stop: 12/01/21 23:39 Last Admin: 12/02/21 00:05 Dose: 0.5 mg Documented by: [id number] Hydromorphone HCl (Hydromorphone Inj 1 Mg/Ml Syringe) 1 mg IV NOW STA Stop: 12/02/21 01:07 Last Admin: 12/02/21 01:17 Dose: 1 mg Documented by: [id number] Hydromorphone HCl (Hydromorphone Inj 0.5 Mg/0.5 Ml Syr) 0.5 mg IV NOW STA Stop: 12/02/21 02:13 Last Admin: 12/02/21 02:47 Dose: 0.5 mg Documented by: [id number] Sodium Chloride (Nss 1000ml) 2,000 mls @ 999 mls/hr IV .Q2H1M ONE Stop: 12/02/21 01:38 Last Infusion: 12/02/21 02:41 Dose: 0 mls/hr Documented by: [id number] Admin: 12/02/21 00:05 Dose: 999 mls/hr Documented by: [id number] Sodium Chloride (Nss 1000ml) 1,000 mls @ 999 mls/hr IV .Q1H1M ONE Stop: 12/02/21 02:58 Last Infusion: 12/02/21 03:50 Dose: 0 mls/hr Documented by: [id number] Admin: 12/02/21 02:47 Dose: 999 mls/hr Documented by: [id number] Ondansetron HCl (Ondansetron Inj 2 Mg/Ml 2 Ml Vial) 4 mg IV NOW STA Stop: 12/01/21 23:40 Last Admin: 12/02/21 00:04 Dose: 4 mg Documented by: [id number] Medical Decision Making Differential Diagnosis Differential diagnosis includes sickle cell crisis, chest crisis, infection, electrolyte imbalance, dehydration, among others. Home Medications Current Medication List: was personally reviewed by me Laboratory Data Attestation: I reviewed the patient's lab results. Result diagrams: 12/01/21 23:57 12/01/21 23:57 Lab Results 12/01/21 12/01/21 12/01/21 Range/Units 23:57 23:57 23:57 WBC 19.26 H (4.8-10.8) K/uL RBC 3.82 L (4.2-5.4) M/uL Hgb 11.9 L (12.0-16.0) g/dL Hct 32.6 L (37-47) % MCV 85.3 (80-100) fL MCH 31.2 (25-34) pg MCHC 36.5 H (32-36) g/dL RDW Std Deviation 46.5 H (36.4-46.3) fL RDW Coeff of Kashif 14.9 H (11.5-14.5) % Plt Count 424 H (130-400) K/uL MPV 8.9 (7.4-10.4) fL Immature Gran % (Auto) 0.3 % Neut % (Auto) 79.8 % Lymph % (Auto) 9.7 % [place] % (Auto) 8.0 % Eos % (Auto) 1.8 % Baso % (Auto) 0.4 % Reticulocyte % (Auto) 5.7 H (0.5-2.0) % Neut # (Auto) 15.39 H (1.4-6.5) K/uL Lymph # (Auto) 1.86 (1.2-3.4) K/uL [place] # (Auto) 1.54 H (0.11-0.59) K/uL Eos # (Auto) 0.34 (0-0.5) K/uL Baso # (Auto) 0.07 (0-0.2) K/uL Reticulocyte # 0.22 H (0.02-0.10) 10^6/uL Immature Gran # (Auto) 0.06 H (0.00-0.02) K/uL Absolute Nucleated RBC 0.07 H (0-0) K/uL Nucleated RBC % (auto) 0.3 % Sodium 137 (136-145) mmol/L Potassium 3.9 (3.5-5.1) mmol/L Chloride 105 (98-107) mmol/L Carbon Dioxide 27 (21-32) mmol/L Anion Gap 5 (3-11) BUN 9 (6-23) mg/dl Creatinine 0.67 (0.6-1.2) mg/dl Est Cr Clr Drug Dosing 127.1 ml/min Est GFR ( Amer) 146.7 ml/min Est GFR (Non-Af Amer) 126.5 ml/min BUN/Creatinine Ratio 13.4 (10-20) Glucose 87 (70-99(Fasting)) mg/dl Calcium 9.7 (8.5-10.1) mg/dl Magnesium 1.7 (1.7-2.4) mg/dl Total Bilirubin 2.5 H (0.2-1.0) mg/dl AST 21 (13-39) U/L ALT 14 (7-52) U/L Alkaline Phosphatase 49 (34-104) U/L Total Protein 7.2 (6.0-8.3) gm/dl Albumin 4.5 (3.4-5.0) gm/dl Globulin 2.7 (2.5-4.0) gm/dl Albumin/Globulin Ratio 1.7 (0.9-2) HCG, Qual Negative (Negative) Urine Color Urine Appearance (Clear) Urine pH (4.5-7.5) Ur Specific [place] (1.000-1.030) Urine Protein (Negative) Urine Glucose (UA) (Negative) Urine Ketones (Negative) Urine Blood (Negative) Urine Nitrite (Negative) Urine Bilirubin (Negative) Urine Urobilinogen (Negative) Ur Leukocyte Esterase (Negative) Urine WBC (Auto) (0-5) /hpf Urine RBC (Auto) (0-4) /hpf U Hyaline Cast (Auto) (0-5) /lpf U Epithel Cells (Auto) (0-5) /lpf Urine Bacteria (Auto) (Negative) Monoscreen (Negative) SARS-CoV-2, RNA, NAAT (NEGATIVE) 12/01/21 12/02/21 12/02/21 Range/Units 23:57 03:35 03:45 WBC (4.8-10.8) K/uL RBC (4.2-5.4) M/uL Hgb (12.0-16.0) g/dL Hct (37-47) % MCV (80-100) fL MCH (25-34) pg MCHC (32-36) g/dL RDW Std Deviation (36.4-46.3) fL RDW Coeff of Kashif (11.5-14.5) % Plt Count (130-400) K/uL MPV (7.4-10.4) fL Immature Gran % (Auto) % Neut % (Auto) % Lymph % (Auto) % [place] % (Auto) % Eos % (Auto) % Baso % (Auto) % Reticulocyte % (Auto) (0.5-2.0) % Neut # (Auto) (1.4-6.5) K/uL Lymph # (Auto) (1.2-3.4) K/uL [place] # (Auto) (0.11-0.59) K/uL Eos # (Auto) (0-0.5) K/uL Baso # (Auto) (0-0.2) K/uL Reticulocyte # (0.02-0.10) 10^6/uL Immature Gran # (Auto) (0.00-0.02) K/uL Absolute Nucleated RBC (0-0) K/uL Nucleated RBC % (auto) % Sodium (136-145) mmol/L Potassium (3.5-5.1) mmol/L Chloride (98-107) mmol/L Carbon Dioxide (21-32) mmol/L Anion Gap (3-11) BUN (6-23) mg/dl Creatinine (0.6-1.2) mg/dl Est Cr Clr Drug Dosing ml/min Est GFR ( Amer) ml/min Est GFR (Non-Af Amer) ml/min BUN/Creatinine Ratio (10-20) Glucose (70-99(Fasting)) mg/dl Calcium (8.5-10.1) mg/dl Magnesium (1.7-2.4) mg/dl Total Bilirubin (0.2-1.0) mg/dl AST (13-39) U/L ALT (7-52) U/L Alkaline Phosphatase (34-104) U/L Total Protein (6.0-8.3) gm/dl Albumin (3.4-5.0) gm/dl Globulin (2.5-4.0) gm/dl Albumin/Globulin Ratio (0.9-2) HCG, Qual (Negative) Urine Color Yellow Urine Appearance Clear (Clear) Urine pH 6.5 (4.5-7.5) Ur Specific [place] 1.011 (1.000-1.030) Urine Protein Negative (Negative) Urine Glucose (UA) Negative (Negative) Urine Ketones Trace H (Negative) Urine Blood Negative (Negative) Urine Nitrite Negative (Negative) Urine Bilirubin Negative (Negative) Urine Urobilinogen Negative (Negative) Ur Leukocyte Esterase 1+ H (Negative) Urine WBC (Auto) 5-10 H (0-5) /hpf Urine RBC (Auto) 0-4 (0-4) /hpf U Hyaline Cast (Auto) 1-5 (0-5) /lpf U Epithel Cells (Auto) >30 H (0-5) /lpf Urine Bacteria (Auto) 1+ H (Negative) Monoscreen Negative (Negative) SARS-CoV-2, RNA, NAAT NEGATIVE (NEGATIVE) Imaging Data Attestation: I personally reviewed and interpreted this imaging study as foll ows: My Impression: CHEST 1 VIEW: No acute pulmonary infiltrates. No cardiomegaly. 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 Patient was placed on the station installation supervisor. Patient was noted to be in sinus tachycardia at an initial rate of 110 bpm. The patient is a 21-year-old female who presents today complaining of pain due to sickle cell crisis. Labs revealed a leukocytosis of 19,000. There is no clear source of infection at this time. Chest x-ray is without infiltrates. Urinalysis is not suggestive of infection. Patient is anemic which is baseline for her. Reticulocyte count elevated at 0.22/5.7%. Patient was treated with multiple rounds of analgesics without much relief. On reassessment, it appears the patient will need to be evaluated by the hospitalist for further care. [facility] hospitalist service was consulted for further evaluation. Impression & Plan Sickle cell crisis, Leukocytosis Discharge Plan Visit Data Chief Complaint: Pain (Generalized) Stated Complaint: CICKLE CELL FLARE UP, BONE AND CHEST PAIN ED Provider: Yaquelin Mc ED Midlevel Provider: Laly Tovar Discharge Problem: Sickle cell crisis, Leukocytosis Patient Disposition: Admitted As Inpatient Discharge Instructions Interventions: ED Discharge Assessment Last Done: 12/02/21 05:15
[2021-12-02 03:56] LABS: Appearance Urine Clear (Clear); Bacteria Urine Automated 1+ (Negative); Bilirubin Urine Negative (Negative); Blood Urine Negative (Negative); Color Urine Yellow; Epithelial Cell Urine Auto >30 /lpf (0-5); Glucose Urine UA Negative (Negative); Ketones Urine Trace (Negative); Leukocyte Esterase Urine 1+ (Negative); Nitrite Urine Negative (Negative); Protein Urine Negative (Negative); RBC Urine Automated 0-4 /hpf (0-4); Specific Gravity Urine 1.011 (1.000-1.030); Urobilinogen Urine Negative (Negative); pH Urine 6.5 (4.5-7.5)
--- NOTE | 2021-12-02 03:57 | History & Physical Report ---
Date of Service December 02, 2021 Assessment & Plan (1) Sickle cell crisis: Plan: 21 year old female with sickle cell disease who presents w/ generalized pains since yesterday and will be admitted for sickle cell crisis. - symptoms may be triggered by concurrent URI - patient does have significant fatigue along w/ mild lymphadenopathy and sore throat; checking mono and strep - full respiratory biofire deferred - per review of cxr and resolution of chest pain, lower suspicion for acute chest syndrome - last admission for sickle cell crisis 07/2021. patient seen and discharged from [facility] ED on 11/20/21 - hydration w/ 2 bags of LR 150 mL/hr ordered - no abd ttp on exam - pain control: scheduled 1000mg PO tylenol q8h. oxycodone 5mg q6h for severe pain prn ordered - ecg ordered - continue discussion of whether hydroxyurea would be appropriate to consider in outpatient setting; per patient, inappropriate phenotype; she has not followed w/ crepe sole wire brusher since last hosp admission (2) Leukocytosis: Plan: - significant. 19.28. most likely 2/2 sickle cell crisis. considered URI. UA w/ 1+ LE and 1+ bact, but no urinary symptoms (3) Anxiety: Plan: - partial adherence sertraline. per patient, she takes it on some days. not ordered at this time - patient requested single room 2/2 claustrophobia from frequent hospitalizations. requested in admission order (4) Tachycardia: Plan: - ecg pending - presumed sinus tach 2/2 pain, sickle cell crisis. also considered infection, URI (5) Upper respiratory infection: Plan: - see above. covid neg. has had covid vaccines, but not booster. counseled (6) Sickle cell disease: Plan: - w/ known anemia. follow cbc. Hb 11.9, stable. (7) Seasonal allergies: Plan: - resume home zyrtec when less fatigued (8) Hyperbilirubinemia: Plan: - 2.5. above baseline of low 1s. follow cmp. monitor clinically Plan: FEN/GI: regular diet. LR 150/hr x 2 bags ppx: scds+lovenox. chemoppx indicated for sickle cell patients code: full dispo: med/surg History of Present Illness Chief Complaint: generalized pain Primary Care Provider: NO PCP 21 year old female with sickle cell disease who presents w/ generalized pains yesterday. She states her symptoms are consistent w/ prior sickle cell flares. She has some URI symptoms (green sputum, congested) that also started yesterday. Brother w/ viral URI. Current pain level 6/10, described as generalized bone pain. Her pain was 10/10 at admission. + fatigued. No fever, chills, cp, sob,abd pain, nausea, vomiting, urinary symptoms, headache, blurry vision. Denies hx vte. She had some chest pain earlier, since resolved. Patient states she has been very sleepy since yesterday and attributes it to being sick. Home pain regimen per patient: ibuprofen. no oxycodone. She states she has not taken narcotic pain medicaitons in the past week. Petra Vargas pediatrician at [facility] is her crepe sole wire brusher. She has not seen her since her last hospitalization to [facility] 08/2021. Patient was also seen at [facility] ED 11/20/21 and was discharged home. Not on hydroxyurea. States was told not helpful for her phenotype. States nonadherent to sertraline. Has had covid vaccine, but not booster. ED course: 2L NSS. IV dilaudid 1mg and two doses of 0.5mg. Allergies Allergy/AdvReac Type Severity Reaction Status Date / Time peanut Allergy Intermediate ITCHY HIVES Verified 08/01/21 13:55 Home Medications Medication Instructions Recorded Confirmed Type cetirizine 10 mg tablet 10 mg PO HS 04/18/20 08/01/21 History ergocalciferol (vitamin D2) 1,250 50,000 unit PO WK 04/18/20 08/01/21 History mcg (50,000 unit) capsule ondansetron 4 mg disintegrating 4 - 8 mg PO Q8H PRN #14 tab 02/28/21 08/01/21 Rx tablet sertraline 25 mg tablet 75 mg PO HS 07/02/21 08/01/21 History folic acid 1 mg tablet 1 mg PO DAILY 08/01/21 08/01/21 History acetaminophen 325 mg tablet 650 mg PO TID #90 tab 08/08/21 Rx Past Med/Surg History Medical History (Updated 12/02/21 @ 05:50 by Laly Tovar PA-C) Anxiety Constipation COVID-19 Influenza A Leukocytosis Pneumonia Pyelonephritis Seasonal allergies Sepsis Sepsis Sickle cell anemia Sickle cell anemia with crisis Sickle cell crisis Splenomegaly Transaminitis Vaginal ulceration Surgical History No pertinent past surgical history Family History (Updated 12/02/21 @ 04:19 by Lul Mina MD) Brother Sickle cell anemia Other No significant family history Social History (Updated 12/02/21 @ 04:20 by Lul Mina MD) Smoking Status: Never smoker Second Hand Exposure: No; Hx Alcohol Use: No Hx Substance Use: No Preferred Language: Haitian Communication Ability: Effective Title Insurance Examiner Required: No Beliefs That Will Affect Care: None marital status: Single Current Living Situation: Other Current Living Situation Comment: with roomates Other Information That Helps Us Care for You: No Feels Safe at Home: Yes Safety Concerns: Feels Safe At This Time Assistive Devices: Glasses Review of Systems Review of Systems: All systems reviewed & are unremarkable except as noted in HPI & below mild sore throat. Physical Exam Physical Exam: General: Grossly A&O. NAD. Cooperative. Very sleepy. Dozing off into sleep mid conversation. HEENT: Atraumatic, normocephalic. EOMI. Tonsils not enlarged. Mild oropharyngeal erythema. Mild R anterior cervical LAD. TMs wnl Pulm: CTAB. -wheezes, -rales, -rhonchi. Slightly decreased respiratory effort. No respiratory distress. Cardiac: RRR, -mrg. Radial pulses intact and symmetrical. No LE edema. Abdominal: Nontender, nondistended, soft. Integ: Warm, dry, intact. No obvious jaundice noted. Results & Data Results & Data ([facility]) Vital Signs (Past 12 Hours) Vital Signs Temp Pulse Resp BP Pulse Ox 12/01/21 23:38 111 H 20 100 12/01/21 23:22 37.1 C 111 H 20 118/87 99 Laboratory Results 12/01/21 23:57 12/01/21 23:57 Cardiac Enzymes 12/01/21 Range/Units 23:57 AST 21 (13-39) U/L CBC 12/01/21 Range/Units 23:57 WBC 19.26 H (4.8-10.8) K/uL RBC 3.82 L (4.2-5.4) M/uL Hgb 11.9 L (12.0-16.0) g/dL Hct 32.6 L (37-47) % Plt Count 424 H (130-400) K/uL Neut # (Auto) 15.39 H (1.4-6.5) K/uL Lymph # (Auto) 1.86 (1.2-3.4) K/uL [place] # (Auto) 1.54 H (0.11-0.59) K/uL Eos # (Auto) 0.34 (0-0.5) K/uL Baso # (Auto) 0.07 (0-0.2) K/uL Comprehensive Metabolic Panel 12/01/21 Range/Units 23:57 Sodium 137 (136-145) mmol/L Potassium 3.9 (3.5-5.1) mmol/L Chloride 105 (98-107) mmol/L Carbon Dioxide 27 (21-32) mmol/L BUN 9 (6-23) mg/dl Creatinine 0.67 (0.6-1.2) mg/dl Glucose 87 (70-99(Fasting)) mg/dl Calcium 9.7 (8.5-10.1) mg/dl AST 21 (13-39) U/L ALT 14 (7-52) U/L Alkaline Phosphatase 49 (34-104) U/L Total Protein 7.2 (6.0-8.3) gm/dl Albumin 4.5 (3.4-5.0) gm/dl Intake and Output 12/01/21 12/01/21 12/02/21 14:59 22:59 06:59 Intake Total 3000 / 3000 Balance 3000 / 3000 Intake: IV 3000 / 3000 Sodium Chloride 0.9% 1000ML 1, 3000 / 3000 000 ml @ 999 mls/hr IV .Q1H1M ONE Rx#:[id number] Other: Weight 60.1 kg Weight Measurement Method Chair Scale Patient Weight 12/02/21 06:59 Weight 60.1 kg Diagnostic Findings cxr: no acute findings per my read. no significant change when compared to 08/01/21 cxr. Code Status & VTE Plan Code Status full VTE Prophylaxis Plan VTE Prophylaxis will be ordered: Yes Supervising Physician Co-Signing Physician Notes Attending addendum: I have physically seen this patient, have supervised the medical residents activities, and agree with the H&P unless as otherwise noted. Assessment and Plan: Sickle cell crisis- Pain improved but not controlled by regimen from the ED [place] strep testing is indicated LR 150 mils per hour x2 L, no history of acute chest syndrome Pain regimen as indicated No suggestion of respiratory infection, but monitored closely for symptoms Was seen in the ED on 11/21/2019 treatments at home Patient may need outpatient regimen intensified, including addition of hydroxyurea [place] discussed Remaining orders and notations as noted Resident Activity Tracking Resident Involvement: Resident Care Provided Care Provided: Adult Hospital Medicine (1) Sickle cell disease Sickle-cell associated disorders: with unspecified crisis Qualified Code(s): D57.00 - Hb-SS disease with crisis, unspecified
[2021-12-02] MEDS: LACTATED RINGER'S 1,000 ML IV SCH ×3 (05:46→19:12)
[2021-12-02] MEDS ORDERED: oxyCODONE HCL IR 5 MG TAB (IMMEDIATE RELEASE) PO PRN ×2 (06:00→08:37)
--- NOTE | 2021-12-02 06:43 | XRay Report ---
XR chest 1V portable CLINICAL HISTORY: sickle cell, chest pain COMPARISON STUDY: Chest radiograph August 01, 2021. FINDINGS: Lung volumes are normal. Lungs are clear. There is no pneumothorax or pleural effusion. Car diac size is normal. Mediastinal contours are normal. There is no evidence for pulmonary edema. IMPRESSION: No acute cardiopulmonary findings. ACT 112: Negative or not required by law. Electronically signed by: Jono Quintero M.D. 12/02/2021 6:41 AM
[2021-12-02] MEDS: ACETAMINOPHEN 500 MG TAB PO SCH ×3 (08:09→23:43)
[2021-12-02] MEDS ORDERED: HYDROmorphone INJ 1 MG/ML SYRINGE IV PRN ×4 (08:35→09:31)
[2021-12-02] MEDS ORDERED: ENOXAPARIN INJ 40 MG/0.4 ML SYR SQ SCH (09:00)
--- NOTE | 2021-12-02 09:02 | Medical Student Progress Note ---
Date of Service December 02, 2021 Assessment & Plan (1) Sickle cell crisis: Plan: - symptoms may be triggered by concurrent URI - normal CXR and repeat - lower suspicion for acute chest syndrome - last admission for sickle cell crisis 07/2021. patient seen and discharged from [facility] ED on 11/20/21 - hydration w/ 2 bags of LR 150 mL/hr ordered - pain control: scheduled 1000mg PO tylenol q8h and Toradol 30mg q6h. Dilaudid 0.5 mg q2h for severe pain prn ordered, heating pad - Consider QUALITY ASSURANCE/R&D LAB TECHNICIAN as she has had previous success with pain control - continue discussion of whether hydroxyurea would be appropriate to consider in outpatient setting; per patient, inappropriate phenotype; she has not followed w/ charge master specialist since last hosp admission (2) Leukocytosis: Plan: - significant. 19.28. increased to 28.34 - biofire ordered, mono, strep, covid - - Etiology of the leukocytosis unknown, possibly viral with the URI or bacterial considering left shift - UA w/ 1+ LE and 1+ bact, but no urinary symptoms - blood cultures ordered, - Empiric coverage with cefipime 2000mg, add vancomycin following positive MRSA swab (3) Anxiety: Plan: - partial adherence sertraline. per patient, she takes it on some days. not ordered at this time - patient requested single room 2/2 claustrophobia from frequent hospitalizations. requested in admission order (4) Tachycardia: Plan: - ecg normal - presumed sinus tach 2/2 pain, sickle cell crisis. also considered infection, URI (5) Upper respiratory infection: Plan: - see above. covid, mono, strep, influenza neg. has had covid vaccines, but not booster. counseled, other vaccines up to date - brother admitted of possible adenovirus last week - remainder of biofire pending (6) Sickle cell disease: Plan: - w/ known anemia. follow cbc. Hb 11.9, stable. - retic .22 Sickle-cell associated disorders: with unspecified crisis Qualified Code(s): D57.00 - Hb-SS disease with crisis, unspecified (7) Seasonal allergies: Plan: - resume home zyrtec when less fatigued (8) Hyperbilirubinemia: Plan: - 2.5. above baseline of low 1s. follow cmp. monitor clinically Plan: FEN/GI: regular diet. LR 150/hr x 2 bags ppx: scds+lovenox. chemoppx indicated for sickle cell patients code: full dispo: med/surg Admission and Anticipated Discharge Date Admission Date: December 02, 2021 Supervising Attestation Patient seen and examined with medical student Reyna James and PGY-1 Dr. Cuenca. Agree with history, exam findings, assessment and plan of care as outlined. In brief, Kaylan is a 21 year old female with sickle cell disease admitted with sickle cell pain crisis. Today continues to have pain, although minimal improvement with increased frequency of IV dilaudid. However, she would prefer a QUALITY ASSURANCE/R&D LAB TECHNICIAN as this has worked best for her in the past to get her pain under control a bit more quickly. Pain is located in the chest, back, legs/knees. This is typical of her sickle cell pa in crisis. Sore throat is better today compared to yesterday and feels that the swollen lymph nodes she was feeling yesterday are a bit better today. No fevers. Starting to cough up green mucus. No shortness of breath. VS and nursing notes reviewed. Nontoxic appearing. Voice is slightly muffled, but no trismus. Posterior oropharynx without evidence of tonsillar hypertrophy, no tonsillar exudates. Left submandibular lymphadenopathy, minimal anterior cervical lymphadenopathy. Heart with regular rate and rhythm. No edema. Lungs are clear to auscultation in all lung hurd with good air movement throughout. 1. Sickle cell pain crisis. IVFs, scheduled Tylenol and Toradol. Oxycodone 5mg PRN. Switch to dilaudid QUALITY ASSURANCE/R&D LAB TECHNICIAN to try to get her pain under control a bit faster. Will update her home charge master specialist tomorrow. 2. Leukocytosis. No fever, but elevation of white count seems to be a bit out of character for her typical sickle cell pain crisis in the past. Procal negative. Blood cultures pending. Empiric antibiotics started (Vanc and cefepime) until cultures are negative. Low suspicion for PE as a cause of le ukocytosis, but if infectious work up unrevealing OR new changes in O2 requirement/tachycardia consider CTA. 3. URI. Brother with recent adenovirus. RVP negative. Monospot negative. Rapid strep negative. COVID negative. Dispo: pending clinical improvement. Subjective Kaylan is a 21 year old female with Sickle Cell Disease who presented yesterday for 1 day of generalized pain. She also has upper respiratory symptoms of congestion and a sore throat which started yesterday after her pain. Her brother was recently admitted for a sickle cell crisis and URI, possible adenovirus. She rates her pain an 8/10. She has been flaring more often, about every other week and is often triggered by stress. At home she manages with heat and tramadol. Typically Dilaudid improves her pain during sickle cell crises. She is having pain in her chest, back and legs which is worst at her knees and along her spine without warmth. She has a cough but no SOB. She is tearful and frustrated. No fever/chills, burning on urination, no abdominal pain, no nausea/vomiting, no diarrhea, no new sexual partners. Physical Exam Physical Exam: General: Grossly A&O. NAD. Cooperative. Tearful. HEENT: Atraumatic, normocephalic. Sclera anicteric. Tonsils not enlarged. Mild oropharyngeal erythema. Left submandibular LAD Pulm: b/t respiratory effort. Clear to ausicultatoin. No wheezes/rales/rhonchi Cardiac: Regular rate and rhythm, no murmurs/rubs/gallops, normal pulses. No LE edema. Abdominal: Nontender, nondistended, soft. Results & Data ([facility]) Vital Signs (Past 12 Hours) Vital Signs Temp Pulse Pulse Resp BP BP Pulse Ox 12/02/21 07:27 36.7 C 93 H 18 121/74 99 12/02/21 05:30 36.8 C 115 H 18 119/74 100 12/01/21 23:38 111 H 20 100 12/01/21 23:22 37.1 C 111 H 20 118/87 99
[2021-12-02] MEDS: HYDROmorphone INJ 1 MG/ML SYRINGE IV PRN ×4 (10:00→23:02)
[2021-12-02] MEDS: KETOROLAC 30 MG/ML VIAL IV SCH ×3 (10:15→22:53)
--- NOTE | 2021-12-02 10:29 | Billing Data ---
Date of Service December 02, 2021 Coding Level of Care Code 47545 Initial Inpt Care Lvl 2
[2021-12-02 12:00] LABS: Adenovirus PCR Not Detected (NotDetected); Bordetella parapertussis PCR Not Detected (NotDetected); Bordetella pertussis PCR Not Detected (NotDetected); Chlamydia pneumoniae PCR Not Detected (NotDetected); Coronavirus 229E PCR Not Detected (NotDetected); Coronavirus CoV-2 (COVID19)PCR Not Detected (NotDetected); Coronavirus HKU1 PCR Not Detected (NotDetected); Coronavirus NL63 PCR Not Detected (NotDetected); Coronavirus OC43PCR Not Detected (NotDetected); Human Metapneumovirus PCR Not Detected (NotDetected); Influenza A PCR Not Detected (NotDetected); Influenza B PCR Not Detected (NotDetected); Mycoplasma pneumoniae PCR Not Detected (NotDetected); Parainfluenza Virus 1 PCR Not Detected (NotDetected); Parainfluenza Virus 2 PCR Not Detected (NotDetected); Parainfluenza Virus 3 PCR Not Detected (NotDetected); Parainfluenza Virus 4 PCR Not Detected (NotDetected); Respiratory Syncytial VirusPCR Not Detected (NotDetected); Rhinovirus/Enterovirus PCR Not Detected (NotDetected)
[2021-12-02 12:19] LABS: Hematocrit (blood only) 28.1 % (37-47); Mean Corpuscular Hemoglobin 30.9 pg (25-34); Mean Corpuscular Hgb Conc 35.6 g/dL (32-36); Mean Corpuscular Volume 86.7 fL (80-100); Nucleated RBC # (auto) 0.04 K/uL (0-0); Nucleated RBC % (auto) 0.2 %; Platelet Count 344 K/uL (130-400); RDW Coefficient of Variation 14.8 % (11.5-14.5); RDW Standard Deviation 46.6 fL (36.4-46.3); Red Blood Count 3.24 M/uL (4.2-5.4); White Blood Count 28.34 K/uL (4.8-10.8)
[2021-12-02 12:43] LABS: Alanine Aminotransferase 13 U/L (7-52); Albumin Globulin Ratio 1.6 (0.9-2); Albumin Level 3.7 gm/dl (3.4-5.0); Alkaline Phosphatase 41 U/L (34-104); Anion Gap 4 (3-11); Aspartate Aminotransferase 19 U/L (13-39); BUN Creatinine Ratio 8.5 (10-20); Bilirubin,Total 2.1 mg/dl (0.2-1.0); Blood Urea Nitrogen 5 mg/dl (6-23); Calcium 8.7 mg/dl (8.5-10.1); Carbon Dioxide 25 mmol/L (21-32); Chloride 107 mmol/L (98-107); Creatinine Clr Calc Pharmacy 147.9 ml/min; Est GFR (African American) > 150.0 ml/min; Est GFR (Non-African American) 131.9 ml/min; Globulin 2.3 gm/dl (2.5-4.0); Glucose 89 mg/dl (70-99(Fasting)); Potassium 3.6 mmol/L (3.5-5.1); Sodium 136 mmol/L (136-145)
[2021-12-02 12:44] LABS: Basophils # (auto) 0.07 K/uL (0-0.2); Basophils % (auto) 0.2 %; Eosinophils # (auto) 0.16 K/uL (0-0.5); Eosinophils % (auto) 0.6 %; Immature Granulocytes # (auto) 0.06 K/uL (0.00-0.02); Immature Granulocytes % (auto) 0.2 %; Lymphocytes # (auto) 2.68 K/uL (1.2-3.4); Lymphocytes % (auto) 9.5 %; Monocytes # (auto) 2.11 K/uL (0.11-0.59); Monocytes % (auto) 7.4 %; Neutrophils # (auto) 23.26 K/uL (1.4-6.5); Neutrophils % (auto) 82.1 %; Polychromasia 1+; Sickle Cells Occasional; Target Cells 2+
[2021-12-02] MEDS ORDERED: Nursing to Pharmacy Communication SCH (13:00)
--- NOTE | 2021-12-02 14:12 | Electrocardiogram Report ---
Test Reason : Blood Pressure : / mmHG Vent. Rate : 103 BPM Atrial Rate : 103 BPM P-R Int : 214 ms QRS Dur : 074 ms QT Int : 342 ms P-R-T Axes : 114 082 066 degrees QTc Int : 448 ms Sinus tachycardia with 1st degree A-V block Nonspecific ST abnormality Abnormal ECG When compared with ECG of 02-JUL-2021 19:01, [place] interval has increased Nonspecific T wave abnormality, worse in Lateral leads Confirmed by Jacky Alonso ([id number]) on 12/02/2021 2:12:34 PM Referred By: REFERRED SELF Confirmed By:Javier Alonso
[2021-12-02] MEDS ORDERED: VANCOMYCIN CONSULT ACTIVE PRN ×2 (14:13→15:42)
[2021-12-02] MEDS ORDERED: PIPERACILL/TAZOBAC CONSULT ACTIVE PRN (14:13)
[2021-12-02] MEDS ORDERED: VANCOMYCIN HCL 1,250 MG in SODIUM CHLORIDE 0.9% 500 ML IV ONE (14:13)
[2021-12-02] MEDS ORDERED: PIPERACILLIN/TAZOBACTAM 4.5 GM in DEXTROSE 5% 100 ML IV SCH (14:15)
--- NOTE | 2021-12-02 14:59 | XRay Report ---
XR chest 2V PA/lateral CLINICAL HISTORY: pneumonia COMPARISON STUDY: Chest radiograph December 01, 2021. FINDINGS: Lung volumes are normal. Lungs are clear. There is no pneumothorax or pleural effusion. Car diac size is normal. Mediastinal contours are normal. There is no evidence for pulmonary edema. IMPRESSION: No acute cardiopulmonary findings. ACT 112: Negative or not required by law. Electronically signed by: Jono Quintero M.D. 12/02/2021 2:58 PM
[2021-12-02] MEDS ORDERED: PIPERACILLIN/TAZOBACTAM 3.375 GM in DEXTROSE 5% 100 ML IV ONE (15:15)
[2021-12-02] MEDS ORDERED: VANCOMYCIN HCL 1,000 MG in SODIUM CHLORIDE 0.9% 500 ML IV SCH (15:45)
[2021-12-02] MEDS ORDERED: VANCOMYCIN HCL 1,250 MG in SODIUM CHLORIDE 0.9% 250 ML IV SCH (16:30)
[2021-12-02] MEDS: ENOXAPARIN INJ 40 MG/0.4 ML SYR SQ SCH (16:40)
--- NOTE | 2021-12-02 21:07 | Communication Note ---
Date of Service: December 02, 2021 - notified by nursing of neg nasal mrsa - continuing vanc+cefepime per review of signout from dayteam; also, continue empiric broad spectrum abx while infectious workup and cultures pending. Significant leukocytosis of 28.34 noted, which would not be explained alone by dehydration - changing LR 150/hr to 1/2 NSS at same rate to encourage reduced incidence of sickling in sickle cell crisis. Na 136 noted. - ordered continuous 2L supp O2 via nasal cannula because of sickle cell crisis. discontinue/convert to prn when appropriate.
[2021-12-02] MEDS ORDERED: POLYETHYLENE (MIRALAX) 17 GM PACK PO PRN (22:41)
[2021-12-02] MEDS: SODIUM CHLORIDE 0.45 % 1,000 ML IV SCH (22:51)
[2021-12-02] MEDS: CEFEPIME 2,000 MG in SYRINGE 0 ML IV SCH (23:02)
[2021-12-02] MEDS: FLUTICASONE PROPIONATE NA SPR 16 GM BTL NAE SCH (23:29)
[2021-12-02] MEDS: VANCOMYCIN HCL 1,000 MG in SODIUM CHLORIDE 0.9% 250 ML IV SCH (23:43)
[2021-12-03] MEDS: HYDROmorphone INJ 1 MG/ML SYRINGE IV PRN ×3 (04:46→13:08)
[2021-12-03] MEDS: KETOROLAC 30 MG/ML VIAL IV SCH ×2 (04:47→10:32)
[2021-12-03] MEDS: SODIUM CHLORIDE 0.45 % 1,000 ML IV SCH ×2 (04:47→13:03)
[2021-12-03] MEDS: CEFEPIME 2,000 MG in SYRINGE 0 ML IV SCH ×3 (06:34→22:36)
[2021-12-03 07:55] LABS: Basophils # (auto) 0.04 K/uL (0-0.2); Basophils % (auto) 0.2 %; Eosinophils # (auto) 0.53 K/uL (0-0.5); Eosinophils % (auto) 2.8 %; Hematocrit (blood only) 29.4 % (37-47); Hemoglobin 10.5 g/dL (12.0-16.0); Immature Granulocytes # (auto) 0.04 K/uL (0.00-0.02); Immature Granulocytes % (auto) 0.2 %; Lymphocytes % (auto) 10.1 %; Mean Corpuscular Hemoglobin 30.6 pg (25-34); Mean Corpuscular Hgb Conc 35.7 g/dL (32-36); Mean Corpuscular Volume 85.7 fL (80-100); Monocytes # (auto) 1.44 K/uL (0.11-0.59); Monocytes % (auto) 7.7 %; Neutrophils # (auto) 14.83 K/uL (1.4-6.5); Nucleated RBC # (auto) 0.05 K/uL (0-0); Nucleated RBC % (auto) 0.3 %; Platelet Count 294 K/uL (130-400); RDW Coefficient of Variation 14.9 % (11.5-14.5); Red Blood Count 3.43 M/uL (4.2-5.4); Reticulocyte % 6.2 % (0.5-2.0); Reticulocytes # 0.21 10^6/uL (0.02-0.10); White Blood Count 18.78 K/uL (4.8-10.8)
[2021-12-03 08:16] LABS: Alanine Aminotransferase 16 U/L (7-52); Albumin Globulin Ratio 1.5 (0.9-2); Albumin Level 3.4 gm/dl (3.4-5.0); Alkaline Phosphatase 41 U/L (34-104); Anion Gap 4 (3-11); Aspartate Aminotransferase 22 U/L (13-39); BUN Creatinine Ratio 10.9 (10-20); Bilirubin,Total 1.6 mg/dl (0.2-1.0); Blood Urea Nitrogen 6 mg/dl (6-23); Calcium 8.5 mg/dl (8.5-10.1); Carbon Dioxide 25 mmol/L (21-32); Chloride 108 mmol/L (98-107); Creatinine Clr Calc Pharmacy 158.7 ml/min; Est GFR (African American) > 150.0 ml/min; Globulin 2.2 gm/dl (2.5-4.0); Glucose 89 mg/dl (70-99(Fasting)); Potassium 3.8 mmol/L (3.5-5.1); Sodium 137 mmol/L (136-145); Total Protein 5.6 gm/dl (6.0-8.3)
[2021-12-03] MEDS: ACETAMINOPHEN 500 MG TAB PO SCH ×3 (08:59→22:49)
--- NOTE | 2021-12-03 09:01 | Pharmacy Report ---
Pharmacy Vanc AUC Short Note - Date of Service December 03, 2021 - Assessment & Plan Assessment 21 year old F receiving IV Vanocmycin + Cefepime for empiric treatment, leukocytosis. URI, sickle cell crisis. Pertinent microbiologic data includes: Negative MRSA Nasal Swab, Blood and urine cultures pending. Provider aware of negative MRSA swab but would like to continue vanc because of unknown cause of leukocytosis. Afebrile, Procal, lacate normal. Day # 2 of antimicrobial therapy. Plan Vancomycin - 1250mg IV x1 then 1000mg IV Q8H * AUC/VIN is the preferred PK/PD target for vancomycin * AUC guided dosing is effective and associated with decreased risk of nephrotoxicity compared to traditional trough targets * This dose is predicted to achieve target AUC/VIN of 400-600 mg/L.hr and may be associated with a 13 % risk of nephrotoxicity * Trough level to be ordered if use beyond 48 hours Cefepime 2g IV Q8H for CrCl > 60ml/min Pharmacy will continue to follow and will adjust dose/frequency as necessary. Thank you.
[2021-12-03] MEDS: FLUTICASONE PROPIONATE NA SPR 16 GM BTL NAE SCH ×2 (09:04→20:24)
[2021-12-03] MEDS: POLYETHYLENE (MIRALAX) 17 GM PACK PO SCH ×2 (09:04→20:25)
--- NOTE | 2021-12-03 09:06 | XRay Report ---
XR chest 2V PA/lateral HISTORY: 21 years-old Female assess for changes acute shortness of breath in a patient with sickle c ell disease COMPARISON: Chest radiographs 12/02/2021 TECHNIQUE: AP and lateral views of the chest FINDINGS: The cardiomediastinal and hilar silhouettes are within normal limits. There is no pneumothorax, pleur al effusion, airspace consolidation or overt pulmonary edema. The bones appear grossly intact. IMPRESSION: No acute process. ACT 112: Negative or not required by law. The above report was generated using voice recognition software. It may contain grammatical, syntax o r spelling errors. Electronically signed by: Shiva Francois M.D. 12/03/2021 9:05 AM
[2021-12-03] MEDS: VANCOMYCIN HCL 1,000 MG in SODIUM CHLORIDE 0.9% 250 ML IV SCH ×3 (09:10→22:36)
--- NOTE | 2021-12-03 09:26 | Medical Student Progress Note ---
Date of Service December 03, 2021 Assessment & Plan (1) Sickle cell crisis: Plan: - symptoms may be triggered by concurrent URI - normal CXR and repeat - lower suspicion for acute chest syndrome - last admission for sickle cell crisis 07/2021. patient seen and discharged from [facility] ED on 11/20/21 - hydration w/ 2 bags of 1/2 NS 150 mL/hr overnight, fluids stopped 12/03 - pain control: scheduled 1000mg PO tylenol q8h and Toradol 30mg q6h, switched to oral. Dilaudid 0.5 mg q4h changed from q2h for severe pain prn ordered, heating pad - Protonix 40mg qam - continue discussion of whether hydroxyurea would be appropriate to consider in outpatient setting; per patient, inappropriate phenotype; she has not followed w/ centrex radio operator since last hosp admission - centrex radio operator updated (Petra FELICIANO) and agrees with our assessment and plan (2) Leukocytosis: Plan: - 12/02: significant. 19.28. increased to 28.34 - 12/03: 18.78 - biofire ordered, mono, strep, covid, adenovirus, influenza - - Etiology of the leukocytosis unknown, possibly viral with the URI or bacterial considering left shift - UA w/ 1+ LE and 1+ bact, but no urinary symptoms - blood cultures pending - Empiric coverage with cefipime 2000mg and vancomycin 1000mg - negative MRSA swab - ID consulted (3) Anxiety: Plan: - partial adherence sertraline. per patient, she takes it on some days. not ordered at this time - patient requested single room due to claustrophobia from frequent hospitalizations. requested in admission order (4) Tachycardia: Plan: - ecg normal - presumed sinus tach due to pain, sickle cell crisis. also considered infection, URI (5) Upper respiratory infection: Plan: - see above. covid, mono, strep, influenza neg. has had covid vaccines, but not booster. counseled, other vaccines up to date - brother admitted of possible adenovirus last week - remainder of biofire pending (6) Sickle cell disease: Plan: - w/ known anemia. follow cbc. Hb 11.9, stable. - 12/03: Hgb 10.5, monitor CBC - 12/03: retic 6.2 Sickle-cell associated disorders: with unspecified crisis Qualified Code(s): D57.00 - Hb-SS disease with crisis, unspecified (7) Seasonal allergies: Plan: - resume home zyrtec when less fatigued (8) Hyperbilirubinemia: Plan: - 12/02: 2.5. above baseline of low 1s. follow cmp. monitor clinically - 12/03: 1.6, monitor Plan: FEN/GI: regular diet. ppx: scds+lovenox. chemoppx indicated for sickle cell patients code: full dispo: med/surg Admission and Anticipated Discharge Date Admission Date: December 02, 2021 Supervising Attestation Patient seen and examined with medical student Reyna James and PGY-1 Dr. Cuenca. Agree with history, exam findings, assessment and plan of care as outlined. In brief, Kaylan is a 21 year old female with sickle cell disease admitted with sickle cell pain crisis. Today continues to have pain, although significant improvement with increased frequency of IV dilaudid. At this point, does not feel that she needs to transition to SHOTWELD OPERATOR. Upper respiratory symptoms are improving compared to prior days. No chest pain, dyspnea. VS and nursing notes reviewed. Nontoxic appearing. Heart with regular rate and rhythm. No edema. Lungs are clear to auscultation in all lung hurd with good air movement throughout. 1. Sickle cell pain crisis. D/C IVFs, continue scheduled Tylenol. Switch to po Toradol PRN. Oxycodone 5mg PRN. Space out dilaudid to q4h. 2. Leukocytosis. Improving. No fever, but elevation of white count seems to be a bit out of character for her typical sickle cell pain crisis in the past. Procal negative. Blood cultures pending. Empiric antibiotics started (Vanc and cefepime) until cultures are negative. Low suspicion for PE as a cause of leukocytosis, but if infectious work up unrevealing OR new changes in O2 requirement/tachycardia consider CTA. 3. URI. Brother with recent adenovirus. RVP negative. Monospot negative. Rapid strep negative. COVID negative. Dispo: pending clinical improvement. Subjective Kaylan is a 21 year old female on hospital day 2 with a history of sickle cell disease presenting with generalized 8/10 pain likely caused by an upper respiratory infection. Her pain improved to a 2-3/10 on Dilaudid. She's asking for it every 3-4 hours. It makes her drowsy. Her congestion and sore throat has improved, but she had chills and sweats last night without fever. She's been having small flares every other week at home, manages with ibuprofen. Occasionally uses tramadol and oxycodone from previous ED visit. She has not had a bowel movement since admission but got a dose of Miralax 12/02 evening and 12/03 morning. Eating and drinking well. Physical Exam Physical Exam: General: Grossly A&O. NAD. Cooperative. HEENT: Atraumatic, normocephalic. Sclera anicteric. Tonsils not enlarged. Mild oropharyngeal erythema. No LAD Pulm: b/t respiratory effort. Clear to auscultation. No wheezes/rales/rhonchi Cardiac: Regular rate and rhythm, no murmurs/rubs/gallops, normal pulses. No LE edema. Abdominal: Nontender, nondistended, soft. Results & Data ([facility]) Vital Signs (Past 12 Hours) Vital Signs Temp Pulse Resp BP Pulse Ox 12/03/21 07:48 36.7 C 87 18 105/70 99 12/02/21 22:44 36.4 C L 88 18 112/77 98
[2021-12-03] MEDS ORDERED: HYDROmorphone INJ 1 MG/ML SYRINGE IV PRN ×2 (14:42→14:44)
[2021-12-03] MEDS: ENOXAPARIN INJ 40 MG/0.4 ML SYR SQ SCH (15:34)
[2021-12-03] MEDS: KETOROLAC TROMETHAMINE 10 MG TABLET PO SCH ×2 (16:58→22:36)
[2021-12-03] MEDS: HYDROmorphone INJ 0.5 MG/0.5 ML SYR IV PRN ×2 (22:50→23:13)
[2021-12-04] MEDS: KETOROLAC TROMETHAMINE 10 MG TABLET PO SCH (05:28)
[2021-12-04] MEDS: CEFEPIME 2,000 MG in SYRINGE 0 ML IV SCH ×2 (05:29→14:22)
[2021-12-04 07:50] LABS: Basophils # (auto) 0.07 K/uL (0-0.2); Basophils % (auto) 0.7 %; Eosinophils # (auto) 0.54 K/uL (0-0.5); Eosinophils % (auto) 5.2 %; Hemoglobin 10.8 g/dL (12.0-16.0); Immature Granulocytes # (auto) 0.02 K/uL (0.00-0.02); Immature Granulocytes % (auto) 0.2 %; Lymphocytes # (auto) 1.97 K/uL (1.2-3.4); Lymphocytes % (auto) 19.1 %; Mean Corpuscular Hemoglobin 30.9 pg (25-34); Mean Corpuscular Volume 85.7 fL (80-100); Mean Platelet Volume 9.3 fL (7.4-10.4); Monocytes # (auto) 1.04 K/uL (0.11-0.59); Monocytes % (auto) 10.1 %; Neutrophils # (auto) 6.66 K/uL (1.4-6.5); Neutrophils % (auto) 64.7 %; Platelet Count 315 K/uL (130-400); RDW Coefficient of Variation 14.8 % (11.5-14.5); RDW Standard Deviation 45.9 fL (36.4-46.3)
[2021-12-04] MEDS: FLUTICASONE PROPIONATE NA SPR 16 GM BTL NAE SCH (08:25)
[2021-12-04 08:40] LABS: Aspartate Aminotransferase 34 U/L (13-39); Potassium 4.2 mmol/L (3.5-5.1)
[2021-12-04 08:41] LABS: Alanine Aminotransferase 25 U/L (7-52); Albumin Globulin Ratio 1.5 (0.9-2); Albumin Level 3.8 gm/dl (3.4-5.0); Alkaline Phosphatase 45 U/L (34-104); Anion Gap 3 (3-11); BUN Creatinine Ratio 15.5 (10-20); Bilirubin,Total 1.2 mg/dl (0.2-1.0); Blood Urea Nitrogen 9 mg/dl (6-23); Calcium 9.1 mg/dl (8.5-10.1); Carbon Dioxide 26 mmol/L (21-32); Chloride 108 mmol/L (98-107); Creatinine Clr Calc Pharmacy 150.5 ml/min; Est GFR (African American) > 150.0 ml/min; Est GFR (Non-African American) 132.7 ml/min; Globulin 2.5 gm/dl (2.5-4.0); Glucose 104 mg/dl (70-99(Fasting)); Sodium 137 mmol/L (136-145); Total Protein 6.3 gm/dl (6.0-8.3)
[2021-12-04] MEDS ORDERED: PANTOprazole 40 MG TAB PO SCH (09:00)
[2021-12-04] MEDS: VANCOMYCIN HCL 1,000 MG in SODIUM CHLORIDE 0.9% 250 ML IV SCH (09:05)
[2021-12-04] MEDS: ACETAMINOPHEN 500 MG TAB PO SCH (09:09)
[2021-12-04] MEDS: POLYETHYLENE (MIRALAX) 17 GM PACK PO SCH (09:12)
[2021-12-04] MEDS ORDERED: KETOROLAC TROMETHAMINE 10 MG TABLET PO PRN (13:00)
--- NOTE | 2021-12-04 15:57 | Med Student Discharge Summary ---
Date of Service December 04, 2021 Admission HPI Per Admitting Provider 21 year old female with sickle cell disease who presents w/ generalized pains yesterday. She states her symptoms are consistent w/ prior sickle cell flares. She has some URI symptoms (green sputum, congested) that also started yesterday. Brother w/ viral URI. Current pain level 6/10, described as generalized bone pain. Her pain was 10/10 at admission. + fatigued. No fever, chills, cp, sob,abd pain, nausea, vomiting, urinary symptoms, headache, blurry vision. Denies hx vte. She had some chest pain earlier, since resolved. Patient states she has been very sleepy since yesterday and attributes it to being sick. Home pain regimen per patient: ibuprofen. no oxycodone. She states she has not taken narcotic pain medicaitons in the past week. 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 She has not seen her since her last hospitalization to [facility] 08/2021. Patient was also seen at [facility] ED 11/20/21 and was discharged home. Not on hydroxyurea. States was told not helpful for her phenotype. States nonadherent to sertraline. Has had covid vaccine, but not booster. ED course: 2L NSS. IV dilaudid 1mg and two doses of 0.5mg. Discharge Exam General: Grossly A&O. NAD. Cooperative. HEENT: Atraumatic, normocephalic. Sclera anicteric. Tonsils not enlarged. Mild oropharyngeal erythema. No LAD Pulm: b/t respiratory effort. Clear to auscultation. No wheezes/rales/rhonchi Cardiac: Regular rate and rhythm, no murmurs/rubs/gallops, normal pulses. No LE edema. Abdominal: Nontender, nondistended, soft. Discharge Data Consultations 12/02/21 03:58 ED Decision to Admit Stat 12/03/21 15:03 Consult Infectious Diseases Routine Hospital Course (1) Sickle cell crisis: Kaylan is a 21 year old female with sickle cell disease presenting in a sickle cell crisis with generalized pain found to also have leukocytosis. Pain improved throughout her hospital course at increasing intervals of Dilaudid administration and leukocytosis improved. - symptoms may be triggered by concurrent URI - normal CXR and repeat - lower suspicion for acute chest syndrome - last admission for sickle cell crisis 07/2021. patient seen and discharged from [facility] ED on 11/20/21 - hydration w/ 2 bags of 1/2 NS 150 mL/hr overnight, fluids stopped 12/03 - pain control: scheduled 1000mg PO tylenol q8h and Toradol 30mg q6h, switched to oral. Dilaudid 0.5 mg q4h changed from q2h for severe pain prn ordered, heating pad - Protonix 40mg qam - continue discussion of whether hydroxyurea would be appropriate to consider in outpatient setting; per patient, inappropriate phenotype; she has not followed w/ fire department battalion chief since last hosp admission - fire department battalion chief updated (Petra FELICIANO) and agrees with our assessment and plan - 12/04: Pain being managed with little use of Dilaudid, last dose 11pm 12/03 (2) Leukocytosis: - 12/02: significant. 19.28. increased to 28.34 - 12/03: 18.78 - 12/04: 10.3 - biofire ordered, mono, strep, covid, adenovirus, influenza - - Etiology of the leukocytosis unknown, possibly viral with the URI or bacterial considering left shift - UA w/ 1+ LE and 1+ bact, but no urinary symptoms - Empiric coverage with cefipime 2000mg and vancomycin 1000mg - negative MRSA swab - ID consulted - 12/04: 48 hours blood cultures show no growth, discontinued antibiotics (3) Anxiety: - partial adherence sertraline. per patient, she takes it on some days. not ordered at this time - patient requested single room due to claustrophobia from frequent hospitalizations. requested in admission order (4) Tachycardia: - ecg normal - presumed sinus tach due to pain, sickle cell crisis. also considered infection, URI (5) Upper respiratory infection: - see above. covid, mono, strep, influenza neg. has had covid vaccines, but not booster. counseled, other vaccines up to date - brother admitted of possible adenovirus last week - 12/04: biofire negative (6) Sickle cell disease: - w/ known anemia. follow cbc. Hb 11.9, stable. - 12/03: Hgb 10.5, monitor CBC - 12/03: retic 6.2 - 12/04: Hemoglobin 10.8 (7) Seasonal allergies: - resume home zyrtec when less fatigued (8) Hyperbilirubinemia: - 12/02: 2.5. above baseline of low 1s. follow cmp. monitor clinically - 12/03: 1.6, monitor Discharge to home, advise meeting with head of digital advertising & integration early December and scheduling an appointment with her fire department battalion chief back home Tylenol 625 mg three times a day and Oxycodone PRN for breakthrough pain Discharge Plan Discharge Items Patient Disposition: Home - Self-Care Reason For Visit: SICKLE CELL CRISIS Discharge Diagnosis: Sickle cell crisis and leukocytosis Activity: Resume your previous activity Non-emergency contact: Primary Care Provider Call non-emergency contact if: you have any medication questions, your symptoms worsen and you have a fever Follow-up/Referrals: [place] [Primary Care Provider] - Diet: Regular Addtl Attending Provider Instructions: You were admitted to the hospital for a sickle cell pain crisis, likely secondary to a viral or bacterial infection. You were treated with pain medication to manage your pain and fluids and antibiotics to target the possible infection. Your pain improved with decreasing doses of pain medication during your hospital course. Markers of your infection also improved and you do not need further antibiotic treatment after discharge. A discharge summary will be sent to your head of digital advertising & integration and fire department battalion chief to ensure continuity of care. Please bring this discharge summary with you to your next office appointment so that your provider can review it at that time. Follow-up appointments: Plan to follow-up with your head of digital advertising & integration at your scheduled appointment in early December. It is very important that you follow up with them shortly after discharge from the hospital. Plan to follow-up with your Radio Dispatcher both by phone and with an appointment when you are home from school break. Medications: Your medication list has been reviewed and reconciled upon discharge to ensure accuracy and continuity of care. An updated list of all your medications is included with your hospital discharge paperwork. Please review this list closely, and make note of any changes. Take Tylenol 650 mg 3 times a day for pain. Take oxycodone as needed for breakthrough pain. You can take it every 4 hours if you need, with the goal to space it out over the coming days. Take your medications as instructed. Make sure all of your doctors know every medicine you are taking (including vosw-tka-gfrjrps medic zuleima, vitamins, and supplements). Call your primary care provider before taking any new medicines (including novc-klh-hgxjpnb medicines, vitamins, and supplements), because some of these may interact with your current medications, or may make your symptoms worse. Tell your primary care provider if you cannot afford your medications. CONTACT YOUR PRIMARY CARE PROVIDER if you experience any of the following: Fever Chills Constipation Difficulty following your treatment plan, or difficulty taking medications CALL 911 OR GO TO THE EMERGENCY DEPARTMENT if you experience any of the following: Severe pain that you are not able to manage at home Trouble breathing Pending Studies at Discharge: No Stand-Alone Forms: [facility] [place], Smoking Cessation Medications and DC Order Prescriptions: Continued cetirizine 10 mg tablet 10 mg PO HS RF: 0 ergocalciferol (vitamin D2) 1,250 mcg (50,000 unit) capsule 50,000 unit PO WK RF: 0 sertraline 25 mg tablet 75 mg PO HS RF: 0 folic acid 1 mg tablet 1 mg PO DAILY RF: 0 acetaminophen 325 mg Tablet 650 mg PO TID Qty: 90 RF: 0 ondansetron 4 mg tablet,disintegrating 4 - 8 mg PO Q8H PRN (Reason: nausea and vomiting) Qty: 14 RF: 0 Discharge Orders: Discharge Order (Routine); Ordered 12/04/21 Ordered By: Mena Huber/Other Patient Handouts: Sickle Cell Anemia, ED Sickle Cell Pain Crisis Admission Data Admit Date/Time: 12/02/21 04:47 Attending Provider: De Hanks Admit Provider: Lul Mina Primary Care Provider: [facility] Other Providers: Steven Rodgers ; Ike Harrison ; Leyda Mosqueda ; Rex Rodriguez I. ; Lobito Armenta II ; Evelia Lawrence ; Reji Lee ; Micheal Wilson Other Interventions: Discharge Summary Assessment (RN) Last Done: 12/04/21 16:06 Supervising Attestation Patient seen and examined with medical student Reyna James and PGY-1 Dr. Cuenca. Agree with history, exam findings, assessment and plan of care as outlined. In brief, Kaylan is a 21 year old female with sickle cell disease admitted with sickle cell pain crisis. Feels that pain is nearly gone. No fevers. Congestion improving. No chest pain, dyspnea. VS and nursing notes reviewed. Nontoxic appearing. Heart with regular rate and rhythm. No edema. Lungs are clear to auscultation in all lung hurd with good air movement throughout. Labs and imaging reviewed. 1. Sickle cell pain crisis. D/C IVFs, continue scheduled Tylenol. No requiring much narcotic pain medication and feels confident she can manage current pain levels at home with oral medications. 2. Leukocytosis. Resolved.. No fever, but elevation of white count seems to be a bit out of character for her typical sickle cell pain crisis in the past. Procal negative. Blood cultures without growth for 48 hours. Empiric antibiotics started (Vanc and cefepime) stopped on discharge. No oral antibiotics at the time of discharge since no source of infection found other than possible viral infection (see below) 3. URI. Brother with recent adenovirus. RVP negative. Monospot negative. Rapid strep negative. COVID negative. Dispo: discharge home today. I personally spent 35 minutes discharge planning for this patient. Follow up as scheduled with head of digital advertising & integration in early December, follow up with hematology this [facility].
== END 2021-12-04 16:43 | disposition home or self-care (01) ==
LOC: ED 23:21 → INTOOBSV 12-02 04:47 → SUATTDRO 12-02 04:47 → 3N 12-02 04:47

== ENCOUNTER 2022-04-14 16:47 | Inpatient (IN) ==
[2022-04-14] MEDS ORDERED: ALBUT/IPRATROP 3MG/0.5MG NEB 3 ML VIAL NEB ONE (17:17)
[2022-04-14] MEDS ORDERED: ACETAMINOPHEN 1,000 MG/100 ML VIAL IV STA (17:20)
[2022-04-14] MEDS ORDERED: HYDROmorphone INJ 0.5 MG/0.5 ML SYR IV STA (17:20)
[2022-04-14] MEDS ORDERED: ONDANSETRON INJ 2 MG/ML 2 ML VIAL IV STA (17:20)
[2022-04-14] MEDS ORDERED: SODIUM CHLORIDE 0.9% 1000ML 1,000 ML IV SCH (17:30)
[2022-04-14 17:48] LABS: Basophils % (auto) 0.8 %; Eosinophils % (auto) 2.3 %; Hematocrit (blood only) 30.8 % (34.1-44.9); Hemoglobin 11.4 g/dl (12.0-16.0); Immature Granulocytes # (auto) 0.03 K/uL (0.00-0.02); Immature Granulocytes % (auto) 0.2 %; Lymphocytes # (auto) 2.59 K/uL (1.2-3.4); Lymphocytes % (auto) 20.2 %; Mean Corpuscular Volume 83.7 fL (80.0-100.0); Mean Platelet Volume 9.2 fL (9.4-12.3); Monocytes # (auto) 1.14 K/uL (0.24-0.82); Monocytes % (auto) 8.9 %; Neutrophils # (auto) 8.66 K/uL (1.4-6.5); Neutrophils % (auto) 67.6 %; Nucleated RBC # (auto) 0.07 K/uL (0-0); Nucleated RBC % (auto) 0.5 %; Platelet Count 402 K/uL (130-400); RDW Coefficient of Variation 13.9 % (11.5-14.5); Red Blood Count 3.68 M/uL (3.93-5.22); Reticulocyte % 5.7 % (0.5-2.0); Reticulocytes # 0.21 10^6/uL (0.02-0.10); White Blood Count 12.82 K/ul (4.8-10.8)
[2022-04-14 18:16] LABS: Troponin I High Sensitivity 2.7 pg/ml (0-14)
[2022-04-14 18:23] LABS: Albumin Globulin Ratio 1.6 (0.9-2); Albumin Level 4.6 gm/dl (3.4-5.0); BUN Creatinine Ratio 10.1 (10-20); Bilirubin,Total 1.5 mg/dl (0.2-1.0); Calcium 9.7 mg/dl (8.5-10.1); Creatinine Clr Calc Pharmacy 95.9 ml/min; Est GFR (African American) 144.2 ml/min; Est GFR (Non-African American) 124.4 ml/min; Globulin 2.9 gm/dl (2.5-4.0); Magnesium 1.8 mg/dl (1.7-2.4); Potassium 4.2 mmol/L (3.5-5.1); Total Protein 7.5 gm/dl (6.0-8.3)
--- NOTE | 2022-04-14 18:28 | XRay Report ---
XR chest 1V portable CLINICAL HISTORY: weakness TECHNIQUE: Single frontal radiograph of the chest was obtained. Comparison: Comparison is made to chest radiograph 12/13/2021 FINDINGS: No lines and tubes are seen. The cardiomediastinal silhouette is normal. The lungs are clear. Increas ed prominence of the left lower lobe is likely due to positioning. No evidence of pleural effusion or pneumothorax. IMPRESSION: No acute abnormalities and in particular no evidence of pneumonia. ACT 112: Negative or not required by law. Electronically signed by: Erik Estes M.D. 04/14/2022 6:26 PM
[2022-04-14 18:48] LABS: Influenza A virus by PCR Negative (Neg); Influenza B virus by PCR Negative (Neg); RSV by PCR Negative (Neg)
[2022-04-14] MEDS: SODIUM CHLORIDE 0.9% 1000ML 1,000 ML IV SCH ×2 (19:08→23:53)
[2022-04-14 19:12] LABS: SARS CoV2 RNA(COVID-19) InHosp POSITIVE (Negative)
[2022-04-14] MEDS: HYDROmorphone INJ 0.5 MG/0.5 ML SYR IV PRN ×3 (19:54→23:51)
--- NOTE | 2022-04-14 20:26 | History & Physical Report ---
Date of Service April 14, 2022 Assessment & Plan (1) Sickle cell disease: Plan: 22 year old woman with sickle cell disease presenting with acute pain and cough secondary to COVID-19 infection. Sickle cell disease/pain crisis -1 day of symptoms. Now s/p bolus IVF x1, Dilaudid, dexamethasone x1 in the ER. -Pain crisis likely secondary to COVID-19 infection. * Pain control: Dilaudid 0.5 mg q1h prn * Dexamethasone 10 mg PO x1. Consider giving daily if symptoms worsen. * Fluid management: mIVF. Monitor fluid status. Stop IVF in AM if patient able to tolerate PO. * AM CBC, BMP COVID-19 -1 day of symptoms. Unclear if responsible for current presentation. -Pt. qualifies for antiviral therapy, given history sickle cell disease. Pt. has had COVID-19 before, for which she was hospitalized x2 weeks. * Paxlovid prescription sent to [facility]. Pt. plans to have prescription brought in from pharmacy tomorrow. She should start once prescription given to nursing: bid x5 days. Already discussed with pharmacy, who is in agreement. * Dexamethasone as above. * CXR in AM if wheezing/SOB. Anxiety: home Sertraline 75 mg qhs Code: Full code Dispo: Med-Surg with telemetry FEN/GI: Regular diet, mIVF DVT Prophylaxis: SCDs PT/OT: No Consults: None Case management: (2) COVID-19 virus infection: (3) Anxiety: History of Present Illness Chief Complaint: COVID-19 infection, sickle cell pain crisis Primary Care Provider: [facility] Kaylan is a 22 year old woman with a history of sickle cell disease (most recently hospitalized in November) who presents today with cough and generalized body pain x1 day. She was in her usual state of health today when she abruptly began coughing. She used albuterol, which helped for a time before wearing off. However, she began to experience generalized pain, worst in her hips and lower back, so she decided to come in to be evaluated. She denies fever, chills, hemoptysis, pleuritic chest pain, wheeze, fatigue, nausea, vomiting, dysgeusia, or dysuria. She denies sick contacts. She is vaccinated ([employer]) but not boosted. ER course was notable for a positive COVID-19 test. CXR showed bibasilar opacities (no acute infectious process on radiology report). She received a 1L normal saline bolus and started on maintenance fluids. She also received Dilaudid for pain management. Allergies Allergy/AdvReac Type Severity Reaction Status Date / Time peanut Allergy Intermediate ITCHY HIVES Verified 04/14/22 19:29 Home Medications Medication Instructions Recorded Confirmed Type cetirizine 10 mg tablet 10 mg PO HS 04/18/20 04/14/22 History ergocalciferol (vitamin D2) 1,250 50,000 unit PO WK 04/18/20 04/14/22 History mcg (50,000 unit) capsule ondansetron 4 mg disintegrating 4 - 8 mg PO Q8H PRN nausea and 02/28/21 04/14/22 Rx tablet vomiting #14 tabs sertraline 25 mg tablet 75 mg PO HS 07/02/21 04/14/22 History folic acid 1 mg tablet 1 mg PO DAILY 08/01/21 04/14/22 History acetaminophen 325 mg tablet 650 mg PO DIRECTED PRN Pain 12/13/21 04/14/22 History nirmatrelvir 300 mg (150 mg See Rx Instructions PO .COMPLEX 04/14/22 Rx x2)-ritonavir 100 mg tablet,dose #30 ea pack(EUA) (Paxlovid) Past Med/Surg History Medical History Anxiety Constipation COVID-19 Influenza A Leukocytosis Pneumonia Pyelonephritis Seasonal allergies Sepsis Sepsis Sickle cell anemia Sickle cell anemia with crisis Sickle cell crisis Splenomegaly Transaminitis Vaginal ulceration Surgical History No pertinent past surgical history Family History Brother Sickle cell anemia Other No significant family history Social History Smoking Status: Never smoker Second Hand Exposure: No; Hx Alcohol Use: No Hx Substance Use: No Preferred Language: Montserratian Communication Ability: Effective [employer] Required: No Beliefs That Will Affect Care: None marital status: Single Current Living Situation: Other Current Living Situation Comment: Roomates Feels Safe at Home: Yes Safety Concerns: Feels Safe At This Time Assistive Devices: Glasses Review of Systems Review of Systems: All systems reviewed & are unremarkable except as noted in HPI & below Physical Exam Physical Exam: General: Slightly ill-appearing, but otherwise alert, interactive, and in no acute distress. HEENT: Normocephalic, atraumatic. EOM intact. Good conjugate gaze. Nares patent. Moist mucosal membranes. Neck: Supple. No lymphadenopathy. Normal ROM. CV: Regular rate and rhythm. Normal S1 and S2. No murmurs gallops or rubs. Respiratory: Normal respiratory effort. Lungs clear to auscultation bilaterally. No crackles, rhonchi, or wheezes. Abdomen: Soft, nondistended abdomen. No bruits heard on auscultation. No tenderness to deep palpation. No guarding or rebound. Extremities: Capillary refill <2 sec. 2+ dp equal bilaterally. No pedal edema. Neuro: Alert and oriented x3. Skin: Clean, dry, and intact. No rashes, bruises, or erythema. Results & Data Results & Data ([facility]) Vital Signs (Past 12 Hours) Vital Signs Temp Pulse Pulse Resp BP BP Pulse Ox 04/14/22 20:10 117 H 24 99 04/14/22 20:00 114 H 24 100 04/14/22 19:50 133 H 22 100 04/14/22 19:40 111 H 25 H 100 04/14/22 19:30 120 H 25 H 100 04/14/22 19:20 120 H 16 99 04/14/22 19:10 118 H 24 100 04/14/22 19:00 121 H 20 100 04/14/22 18:50 98 H 24 100 04/14/22 18:40 83 19 100 04/14/22 18:30 91 H 26 H 100 04/14/22 18:20 96 H 22 100 04/14/22 18:10 88 19 100 04/14/22 18:00 81 22 100 04/14/22 17:50 97 H 19 97 04/14/22 18:48 108 H 18 128/71 100 04/14/22 17:18 88 16 98 04/14/22 17:51 18 98 04/14/22 16:48 16 04/14/22 16:48 36 C L 102 H 18 122/71 100 O2 Del Method 04/14/22 20:10 04/14/22 20:00 04/14/22 19:50 04/14/22 19:40 04/14/22 19:30 04/14/22 19:20 04/14/22 19:10 04/14/22 19:00 04/14/22 18:50 04/14/22 18:40 04/14/22 18:30 04/14/22 18:20 04/14/22 18:10 04/14/22 18:00 04/14/22 17:50 04/14/22 18:48 Room Air 04/14/22 17:18 Room Air 04/14/22 17:51 Room Air 04/14/22 16:48 04/14/22 16:48 Room Air Supervising Physician Co-Signing Physician Notes Attending addendum: I have physically seen this patient, have supervised the medical residents activities, and agree with the H&P unless as otherwise noted. Assessment and Plan: Sickle cell disease/crisis- Likely triggering factor COVID-19 causing generalized symptoms Give dexamethasone as noted Pain control with Dilaudid IV as noted Consider trial of Paxil but with outpatient prescription to be filled and brought into the hospital Monitor closely for acute chest, no symptoms at this time IV fluids as noted Remaining orders and notations as noted Resident Activity Tracking Resident Involvement: Resident Care Provided Care Provided: Adult Hospital Medicine
[2022-04-14] MEDS ORDERED: dexAMETHasone**PF** 10 MG/ML VIAL PO ONE (21:08)
--- NOTE | 2022-04-14 21:55 | Emergency Department Note ---
Impression & Plan Sickle cell disease with crisis, COVID-19 virus infection ED Provider Note CHIEF COMPLAINT: Cough, low back and right leg pain HISTORY OF PRESENT ILLNESS: This 22-year-old female patient presents to the emergency department with complaints of a cough, low back pain and right leg pain. The patient states she has a history of sickle cell disease and feels as though she is in a pain crisis. She began coughing late last evening and early into this morning. She states she "does not go anywhere" does not feel that she is at risk for COVID. She did have COVID several months ago and states it took several days for her to get over. She denies any recent fevers, vomiting or diarrhea. She states she was last admitted to the hospital in [place] with a sickle cell crisis in February of this year. REVIEW OF SYSTEMS: A review of systems was performed with positives and pertinent negatives listed in the history of present illness. 10 systems were reviewed and are otherwise negative. ALLERGIES: see below MEDICATIONS: see below PMH: see below SOCIAL HISTORY: see below DDx: Sickle cell crisis, COVID-19, pneumonia, PE, UTI, pyelonephritis, radiculopathy, herniated disc, muscular strain, acute coronary syndrome, acute chest amongst others. PHYSICAL EXAM: Vital signs reviewed. General: Well-appearing 22-year-old female, some discomfort. HEENT: No scleral icterus, PERRLA, neck supple. Atraumatic. Cardiovascular: Tachycardic but regular, no extra sounds. Pulmonary: Coarse breath sounds/wheezing to auscultation bilaterally, normal work of breathing. Abdomen: Soft, nontender, nondistended, positive bowel sounds. Musculoskeletal: Atraumatic, no peripheral edema. Neurologic: Patient awake alert and oriented x 3, speech is clear Skin: Warm, dry, no rash EMERGENCY DEPARTMENT COURSE/MDM: Patient was evaluated and appeared to be in significant discomfort. IV access was obtained and laboratory work was drawn. The patient was hydrated with 1 L of normal saline solution bolus and then 150 mL/h. She was given IV Dilaudid, IV acetaminophen and Zofran for her discomfor t. Patient's laboratory work reveals a mild leukocytosis with a positive reticulocyte count. Patient did receive additional pain medication somewhat tachycardic. Tachycardia is likely related to pain and an albuterol treatment. Patient did test positive for COVID. Chest x-ray is negative for acute infiltrate. Hospitalist service was consulted for further management given the patient's uncontrolled pain, tachycardia and COVID. She has expressed understanding of the plan and agrees. MONITORING: An order for cardiac monitoring was placed and the patient is noted to be in a sinus tachycardia at 121 beats per minute. RADIOLOGY: See below EKG: NSR at 83 bpm, ST segments are normal. QTc is 462. No PVC, no PAC. DISPOSITION: Admission Past Med/Surg History Medical History Anxiety Constipation COVID-19 Influenza A Leukocytosis Pneumonia Pyelonephritis Seasonal allergies Sepsis Sepsis Sickle cell anemia Sickle cell anemia with crisis Sickle cell crisis Sickle cell crisis Splenomegaly Transaminitis Vaginal ulceration Surgical History No pertinent past surgical history Family History Brother Sickle cell anemia Other No significant family history Social History Smoking Status: Never smoker Second Hand Exposure: No; Hx Alcohol Use: No Hx Substance Use: No Preferred Language: Yi Communication Ability: Effective 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 Beliefs That Will Affect Care: None marital status: Single Current Living Situation: Other Current Living Situation Comment: [place] Feels Safe at Home: Yes Safety Concerns: Feels Safe At This Time Assistive Devices: Nebulizer Allergies Allergies Allergy/AdvReac Type Severity Reaction Status Date / Time peanut Allergy Intermediate ITCHY HIVES Verified 04/14/22 19:29 Home Meds Home Medications Medication Instructions Recorded Confirmed cetirizine 10 mg tablet 10 mg PO HS 04/18/20 04/14/22 ergocalciferol (vitamin D2) 1,250 50,000 unit PO WK 04/18/20 04/14/22 mcg (50,000 unit) capsule sertraline 25 mg tablet 75 mg PO HS 07/02/21 04/14/22 folic acid 1 mg tablet 1 mg PO DAILY 08/01/21 04/14/22 acetaminophen 325 mg tablet 650 mg PO DIRECTED PRN Pain 12/13/21 04/14/22 Previous Rx's Medication Instructions Recorded ondansetron 4 mg disintegrating 4 - 8 mg PO Q8H PRN nausea and 02/28/21 tablet vomiting #14 tabs nirmatrelvir 300 mg (150 mg See Rx Instructions PO .COMPLEX 04/14/22 x2)-ritonavir 100 mg tablet,dose #30 ea pack(EUA) (Paxlovid) Results & Data (ED) Vital Signs Vital Signs - 24 hr 04/14/22 16:48 04/14/22 16:48 04/14/22 17:51 Temperature 36 C L Temperature Source Temporal Artery Scan Pulse Rate 102 H Pulse Rate [Apical] Pulse Rate from SpO2 Sensor Pulse Rhythm Pulse Rhythm [Apical] Pulse Strength [Apical] Respiratory Rate 18 16 18 Respiratory Effort / Characteristics Spontaneous Non-Labored Non-Labored Accessory Muscle Use Respiratory Depth Normal Normal Respiratory Pattern Regular Blood Pressure 122/71 Blood Pressure [Left Arm] Blood Pressure Mean 88 Blood Pressure Mean [Left Arm] Blood Pressure Position [Left Arm] Pulse Oximetry 100 98 Oxygen Delivery Method Room Air Room Air Sepsis Recent Fever Within 48 Hours No Sepsis New/Unexplained Change in Mental Status No Sepsis Action Taken by Nursing No Action Required 04/14/22 17:18 04/14/22 18:48 04/14/22 17:50 Temperature Temperature Source Pulse Rate 88 97 H Pulse Rate [Apical] 108 H Pulse Rate from SpO2 Sensor 96 H Pulse Rhythm Regular Pulse Rhythm [Apical] Regular Pulse Strength [Apical] Normal Respiratory Rate 16 18 19 Respiratory Effort / Characteristics Non-Labored Respiratory Depth Normal Respiratory Pattern Regular Blood Pressure Blood Pressure [Left Arm] 128/71 Blood Pressure Mean Blood Pressure Mean [Left Arm] 90 Blood Pressure Position [Left Arm] Lying Pulse Oximetry 98 100 97 Oxygen Delivery Method Room Air Room Air Sepsis Recent Fever Within 48 Hours Sepsis New/Unexplained Change in Mental Status Sepsis Action Taken by Nursing 04/14/22 18:00 04/14/22 18:10 04/14/22 18:20 Temperature Temperature Source Pulse Rate 81 88 96 H Pulse Rate [Apical] Pulse Rate from SpO2 Sensor 81 87 97 H Pulse Rhythm Pulse Rhythm [Apical] Pulse Strength [Apical] Respiratory Rate 22 19 22 Respiratory Effort / Characteristics Respiratory Depth Respiratory Pattern Blood Pressure Blood Pressure [Left Arm] Blood Pressure Mean Blood Pressure Mean [Left Arm] Blood Pressure Position [Left Arm] Pulse Oximetry 100 100 100 Oxygen Delivery Method Sepsis Recent Fever Within 48 Hours Sepsis New/Unexplained Change in Mental Status Sepsis Action Taken by Nursing 04/14/22 18:30 04/14/22 18:40 04/14/22 18:50 Temperature Temperature Source Pulse Rate 91 H 83 98 H Pulse Rate [Apical] Pulse Rate from SpO2 Sensor 92 H 88 100 H Pulse Rhythm Pulse Rhythm [Apical] Pulse Strength [Apical] Respiratory Rate 26 H 19 24 Respiratory Effort / Characteristics Respiratory Depth Respiratory Pattern Blood Pressure Blood Pressure [Left Arm] Blood Pressure Mean Blood Pressure Mean [Left Arm] Blood Pressure Position [Left Arm] Pulse Oximetry 100 100 100 Oxygen Delivery Method Sepsis Recent Fever Within 48 Hours Sepsis New/Unexplained Change in Mental Status Sepsis Action Taken by Nursing 04/14/22 19:00 04/14/22 19:10 04/14/22 19:20 Temperature Temperature Source Pulse Rate 121 H 118 H 120 H Pulse Rate [Apical] Pulse Rate from SpO2 Sensor 119 H 116 H 119 H Pulse Rhythm Pulse Rhythm [Apical] Pulse Strength [Apical] Respiratory Rate 20 24 16 Respiratory Effort / Characteristics Respiratory Depth Respiratory Pattern Blood Pressure Blood Pressure [Left Arm] Blood Pressure Mean Blood Pressure Mean [Left Arm] Blood Pressure Position [Left Arm] Pulse Oximetry 100 100 99 Oxygen Delivery Method Sepsis Recent Fever Within 48 Hours Sepsis New/Unexplained Change in Mental Status Sepsis Action Taken by Nursing 04/14/22 19:30 04/14/22 19:40 04/14/22 19:50 Temperature Temperature Source Pulse Rate 120 H 111 H 133 H Pulse Rate [Apical] Pulse Rate from SpO2 Sensor 116 H 112 H 116 H Pulse Rhythm Pulse Rhythm [Apical] Pulse Strength [Apical] Respiratory Rate 25 H 25 H 22 Respiratory Effort / Characteristics Respiratory Depth Respiratory Pattern Blood Pressure Blood Pressure [Left Arm] Blood Pressure Mean Blood Pressure Mean [Left Arm] Blood Pressure Position [Left Arm] Pulse Oximetry 100 100 100 Oxygen Delivery Method Sepsis Recent Fever Within 48 Hours Sepsis New/Unexplained Change in Mental Status Sepsis Action Taken by Nursing 04/14/22 20:00 04/14/22 20:10 04/14/22 20:29 Temperature Temperature Source Pulse Rate 114 H 117 H Pulse Rate [Apical] 103 H Pulse Rate from SpO2 Sensor 116 H 116 H Pulse Rhythm Pulse Rhythm [Apical] Pulse Strength [Apical] Respiratory Rate 24 24 Respiratory Effort / Characteristics Respiratory Depth Respiratory Pattern Blood Pressure Blood Pressure [Left Arm] 128/71 Blood Pressure Mean Blood Pressure Mean [Left Arm] 90 Blood Pressure Position [Left Arm] Pulse Oximetry 100 99 98 Oxygen Delivery Method Sepsis Recent Fever Within 48 Hours Sepsis New/Unexplained Change in Mental Status Sepsis Action Taken by Nursing 04/14/22 20:20 Temperature Temperature Source Pulse Rate 108 H Pulse Rate [Apical] Pulse Rate from SpO2 Sensor 106 H Pulse Rhythm Pulse Rhythm [Apical] Pulse Strength [Apical] Respiratory Rate 28 H Respiratory Effort / Characteristics Respiratory Depth Respiratory Pattern Blood Pressure Blood Pressure [Left Arm] Blood Pressure Mean Blood Pressure Mean [Left Arm] Blood Pressure Position [Left Arm] Pulse Oximetry 100 Oxygen Delivery Method Sepsis Recent Fever Within 48 Hours Sepsis New/Unexplained Change in Mental Status Sepsis Action Taken by Care Home Medications Current Medication List: was personally reviewed by me Laboratory Data Attestation: I reviewed the patient's lab results. Result diagrams: 04/19/22 05:51 04/19/22 05:51 Lab Results 04/14/22 04/14/22 04/14/22 Range/Units 17:30 17:30 17:52 WBC 12.82 H (4.8-10.8) K/ul RBC 3.68 L (3.93-5.22) M/uL Hgb 11.4 L (12.0-16.0) g/dl Hct 30.8 L (34.1-44.9) % MCV 83.7 (80.0-100.0) fL MCH 31.0 (25.0-34.0) pg MCHC 37.0 H (32.0-36.0) g/dL RDW Std Deviation 42.0 (36.4-46.3) fL RDW Coeff of Kashif 13.9 (11.5-14.5) % Plt Count 402 H (130-400) K/uL MPV 9.2 L (9.4-12.3) fL Immature Gran % (Auto) 0.2 % Neut % (Auto) 67.6 % Lymph % (Auto) 20.2 % [place] % (Auto) 8.9 % Eos % (Auto) 2.3 % Baso % (Auto) 0.8 % Reticulocyte % (Auto) 5.7 H (0.5-2.0) % Neut # (Auto) 8.66 H (1.4-6.5) K/uL Lymph # (Auto) 2.59 (1.2-3.4) K/uL [place] # (Auto) 1.14 H (0.24-0.82) K/uL Eos # (Auto) 0.30 (0-0.50) K/uL Baso # (Auto) 0.10 (0-0.2) K/uL Reticulocyte # 0.21 H (0.02-0.10) 10^6/uL Immature Gran # (Auto) 0.03 H (0.00-0.02) K/uL Absolute Nucleated RBC 0.07 H (0-0) K/uL Nucleated RBC % (auto) 0.5 % Sodium 137 (136-145) mmol/L Potassium 4.2 (3.5-5.1) mmol/L Chloride 106 (98-107) mmol/L Carbon Dioxide 26 (21-32) mmol/L Anion Gap 5 (3-11) BUN 7 (6-23) mg/dl Creatinine 0.69 (0.6-1.2) mg/dl Est Cr Clr Drug Dosing 95.9 ml/min Est GFR ( Amer) 144.2 ml/min Est GFR (Non-Af Amer) 124.4 ml/min BUN/Creatinine Ratio 10.1 (10-20) Glucose 87 (70-99(Fasting)) mg/dl Calcium 9.7 (8.5-10.1) mg/dl Magnesium 1.8 (1.7-2.4) mg/dl Total Bilirubin 1.5 H (0.2-1.0) mg/dl AST 19 (13-39) U/L ALT 11 (7-52) U/L Alkaline Phosphatase 46 (34-104) U/L Troponin I High Sens 2.7 (0-14) pg/ml Total Protein 7.5 (6.0-8.3) gm/dl Albumin 4.6 (3.4-5.0) gm/dl Globulin 2.9 (2.5-4.0) gm/dl Albumin/Globulin Ratio 1.6 (0.9-2) SARS-CoV-2 (PCR) POSITIVE A* (Negative) Influenza Type A (PCR) Negative (Neg) Influenza Type B (PCR) Negative (Neg) RSV (RT-PCR) Negative (Neg) Administered Medications Acetaminophen (Acetaminophen 500 Mg Tab) 1,000 mg PO Q8H ROBYN Stop: 05/17/22 22:59 Last Admin: 04/19/22 06:29 Dose: 1,000 mg Documented By: Admin: 04/18/22 23:37 Dose: 1,000 mg Documented By: Admin: 04/18/22 14:59 Dose: 1,000 mg Documented By: Admin: 04/18/22 06:15 Dose: 1,000 mg Documented By: Admin: 04/18/22 02:54 Dose: 1,000 mg Documented By: Admin: 04/17/22 22:36 Dose: 1,000 mg Documented By: ARISTEO Albuterol (Albuterol 0.083% Nebu Soln 3 Ml Vial) 2.5 mg NEB Q6R ROBYN; Protocol Stop: 05/17/22 12:59 Last Admin: 04/19/22 07:15 Dose: 2.5 mg Documented By: Admin: 04/19/22 00:17 Dose: 2.5 mg Documented By: Admin: 04/18/22 19:45 Dose: 2.5 mg Documented By: Admin: 04/18/22 13:33 Dose: 2.5 mg Documented By: Admin: 04/18/22 07:17 Dose: 2.5 mg Documented By: Admin: 04/18/22 01:36 Dose: 2.5 mg Documented By: Admin: 04/17/22 19:39 Dose: 2.5 mg Documented By: Admin: 04/17/22 12:47 Dose: 2.5 mg Documented By: [id number] Albuterol (Albuterol 0.083% Nebu Soln 3 Ml Vial) 2.5 mg NEB Q4R PRN; Protocol PRN Reason: Shortness Of Breath Or Wheezing Stop: 05/17/22 20:32 Last Admin: 04/17/22 23:10 Dose: 2.5 mg Documented By: AB Fluticasone/Vilanterol (Fluticasone/Vilanterol 100/25mcg 14 Puffs/Inhaler) 1 puffs INH DAILY ROBYN Stop: 05/17/22 15:14 Last Admin: 04/18/22 09:39 Dose: 1 puffs Documented By: Admin: 04/17/22 17:24 Dose: 1 puffs Documented By: APOLONIA Folic Acid (Folic Acid 1 Mg Tab) 1 mg PO DAILY ROBYN Stop: 05/15/22 08:59 Last Admin: 04/19/22 09:06 Dose: 1 mg Documented By: Admin: 04/18/22 09:38 Dose: 1 mg Documented By: Admin: 04/17/22 08:12 Dose: 1 mg Documented By: Admin: 04/16/22 09:11 Dose: 1 mg Documented By: Admin: 04/15/22 08:12 Dose: 1 mg Documented By: CHIQUIS Guaifenesin (Guaifenesin 600 Mg Tabcr) 1,200 mg PO BID ROBYN Stop: 05/18/22 20:59 Last Admin: 04/19/22 09:05 Dose: 1,200 mg Documented By: Admin: 04/18/22 21:06 Dose: 1,200 mg Documented By: SAIDA Hydromorphone HCl (Hydromorphone Cigarette Tester 30 Mg/30 Ml) 30 mg IV PRN PRN; 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 Stop: 04/30/22 08:18 Last Admin: 04/19/22 08:09 Dose: 30 mg Documented By: JAMIE Co-signed By: BRAYAN Admin: 04/18/22 18:06 Dose: 30 mg Documented By: JAMIE Co-signed By: APOLONIA Admin: 04/17/22 17:33 Dose: 30 mg Documented By: APOLONIA Co-signed By: JAMIE Admin: 04/16/22 11:05 Dose: 30 mg Documented By: CHIQUIS Co-signed By: BRAYAN(2) Hydromorphone HCl (Hydromorphone Inj 1 Mg/Ml Syringe) 1 mg IV HS PRN PRN Reason: Severe Pain 9-10/10, notify Stop: 05/02/22 00:09 Last Admin: 04/18/22 22:13 Dose: 1 mg Documented By: SAIDA Sodium Chloride (1/2 Nss) 1,000 mls @ 150 mls/hr IV .Q6H40M RBOYN Stop: 05/15/22 06:44 Last Infusion: 04/18/22 11:15 Dose: 0 mls/hr Documented By: Admin: 04/18/22 09:33 Dose: 150 mls/hr Documented By: Infusion: 04/18/22 09:33 Dose: 150 mls/hr Documented By: Admin: 04/18/22 05:14 Dose: 150 mls/hr Documented By: Infusion: 04/18/22 05:14 Dose: 150 mls/hr Documented By: Admin: 04/17/22 22:36 Dose: 150 mls/hr Documented By: Infusion: 04/17/22 22:17 Dose: 150 mls/hr Documented By: Admin: 04/17/22 15:36 Dose: 150 mls/hr Documented By: Infusion: 04/17/22 15:36 Dose: 0 mls/hr Documented By: Admin: 04/17/22 10:19 Dose: 150 mls/hr Documented By: Infusion: 04/17/22 10:19 Dose: 150 mls/hr Documented By: Admin: 04/17/22 05:04 Dose: 150 mls/hr Documented By: Infusion: 04/17/22 05:04 Dose: 150 mls/hr Documented By: Admin: 04/16/22 22:28 Dose: 150 mls/hr Documented By: Infusion: 04/16/22 22:04 Dose: 150 mls/hr Documented By: Admin: 04/16/22 15:23 Dose: 150 mls/hr Documented By: Infusion: 04/16/22 15:22 Dose: 0 mls/hr Documented By: Admin: 04/16/22 08:08 Dose: 150 mls/hr Documented By: Infusion: 04/16/22 07:00 Dose: 150 mls/hr Documented By: Admin: 04/16/22 00:19 Dose: 150 mls/hr Documented By: Infusion: 04/15/22 23:46 Dose: 0 mls/hr Documented By: Admin: 04/15/22 15:28 Dose: 150 mls/hr Documented By: Infusion: 04/15/22 15:27 Dose: 0 mls/hr Documented By: Admin: 04/15/22 06:43 Dose: 150 mls/hr Documented By: Cefepime HCl 2,000 mg/ Syringe 20 mls @ 5 mls/min IV Q8H ROBYN; Protocol Stop: 04/25/22 10:59 Last Admin: 04/19/22 10:12 Dose: 5 mls/min Documented By: Admin: 04/19/22 03:38 Dose: 5 mls/min Documented By: Admin: 04/18/22 18:01 Dose: 5 mls/min Documented By: Admin: 04/18/22 11:24 Dose: 5 mls/min Documented By: JAMIE Azithromycin 500 mg/ Dextrose 255 mls @ 125 mls/hr IV Q24H ROBYN Stop: 04/25/22 10:59 Last Admin: 04/19/22 10:11 Dose: 125 mls/hr Documented By: Infusion: 04/18/22 13:27 Dose: 0 mls/hr Documented By: Admin: 04/18/22 11:24 Dose: 125 mls/hr Documented By: JAMIE Vancomycin HCl 1,000 mg/ (Sodium Chloride) 270 mls @ 200 mls/hr IV Q8H ROBYN Stop: 04/25/22 19:59 Last Infusion: 04/19/22 05:07 Dose: 0 mls/hr Documented By: Admin: 04/19/22 03:38 Dose: 200 mls/hr Documented By: Infusion: 04/18/22 21:13 Dose: 0 mls/hr Documented By: Admin: 04/18/22 19:48 Dose: 200 mls/hr Documented By: SAIDA Lidocaine (Lidocaine 5% 1 Patch) 1 patch TD QAM ROBYN Stop: 05/17/22 11:59 Last Admin: 04/19/22 09:06 Dose: 1 patch Documented By: Admin: 04/18/22 09:37 Dose: 1 patch Documented By: Admin: 04/17/22 12:32 Dose: 1 patch Documented By: JAMIE Lidocaine (Lidocaine 5% 1 Patch) 1 patch TD DAILY ROBYN Stop: 05/18/22 08:59 Last Admin: 04/19/22 09:06 Dose: 1 patch Documented By: Admin: 04/18/22 09:37 Dose: 1 patch Documented By: JAMIE Gauthier (Remove Lidoderm Patch) 1 each N/A DAILY@2100 [facility] Stop: 05/17/22 20:59 Last Admin: 04/18/22 21:06 Dose: 1 each Documented By: Admin: 04/17/22 20:05 Dose: 1 each Documented By: ARISTEO Gauthier (Remove Lidoderm Patch) 1 each N/A HS ROBYN Stop: 05/17/22 20:59 Last Admin: 04/18/22 21:05 Dose: 1 each Documented By: Admin: 04/17/22 20:05 Dose: 1 each Documented By: ARISTEO Nirmatrelvir/Ritonavir (Nirmatrelvir/Ritonavir 1 Ea Tab) 1 each PO BID ROBYN Stop: 04/19/22 21:01 Last Admin: 04/19/22 09:04 Dose: 1 each Documented By: Admin: 04/18/22 21:07 Dose: 1 each Documented By: Admin: 04/18/22 09:40 Dose: 1 each Documented By: Admin: 04/17/22 20:05 Dose: 1 each Documented By: Admin: 04/17/22 08:33 Dose: 1 each Documented By: Admin: 04/16/22 20:20 Dose: 1 each Documented By: Admin: 04/16/22 09:11 Dose: 1 each Documented By: Admin: 04/15/22 20:16 Dose: 1 each Documented By: Admin: 04/15/22 11:28 Dose: 1 each Documented By: CHIQUIS Ondansetron HCl (Ondansetron 4 Mg Od Tab) 4 mg PO Q4H PRN PRN Reason: nausea and vomiting Stop: 05/14/22 23:45 Last Admin: 04/18/22 11:50 Dose: 4 mg Documented By: JAMIE Oxycodone HCl (Oxycodone Hcl Ir 5 Mg Tab (Immediate Release)) 5 mg PO Q4H PRN PRN Reason: Moderate Pain Stop: 04/29/22 00:23 Last Admin: 04/19/22 07:40 Dose: 5 mg Documented By: Admin: 04/19/22 03:37 Dose: 5 mg Documented By: Admin: 04/18/22 19:48 Dose: 5 mg Documented By: Admin: 04/18/22 12:50 Dose: 5 mg Documented By: Admin: 04/18/22 07:44 Dose: 5 mg Documented By: Admin: 04/17/22 23:41 Dose: 5 mg Documented By: Admin: 04/17/22 20:04 Dose: 5 mg Documented By: Admin: 04/17/22 12:05 Dose: 5 mg Documented By: Admin: 04/15/22 20:14 Dose: 5 mg Documented By: Admin: 04/15/22 00:43 Dose: 5 mg Documented By: JERRI Polyethylene Glycol (Polyethylene (Miralax) 17 Gm Pack) 17 gm PO DAILY ROBYN Stop: 05/15/22 08:59 Last Admin: 04/19/22 09:05 Dose: 17 gm Documented By: Admin: 04/18/22 09:35 Dose: 17 gm Documented By: Admin: 04/17/22 08:12 Dose: 17 gm Documented By: Admin: 04/16/22 09:11 Dose: 17 gm Documented By: Admin: 04/15/22 08:13 Dose: 17 gm Documented By: CHIQUIS Sennosides (Senna 8.6 Mg Tab) 17.2 mg PO QAM ROBYN Stop: 05/15/22 11:29 Last Admin: 04/19/22 09:06 Dose: 17.2 mg Documented By: Admin: 04/18/22 09:38 Dose: 17.2 mg Documented By: Admin: 04/17/22 08:13 Dose: 17.2 mg Documented By: Admin: 04/16/22 09:11 Dose: 17.2 mg Documented By: Admin: 04/15/22 12:28 Dose: 17.2 mg Documented By: CHIQUIS Sertraline HCl (Sertraline Hcl 50 Mg Tablet) 75 mg PO HS ROBYN Stop: 05/14/22 23:45 Last Admin: 04/18/22 21:05 Dose: 75 mg Documented By: Admin: 04/17/22 20:06 Dose: 75 mg Documented By: Admin: 04/16/22 20:19 Dose: 75 mg Documented By: Admin: 04/15/22 20:15 Dose: 75 mg Documented By: Admin: 04/15/22 00:44 Dose: 75 mg Documented By: Sodium Chloride (Sodium Chlor 7% 4 Ml Neb) 4 ml NEB BIDR ROBYN Stop: 05/18/22 06:59 Last Admin: 04/19/22 07:15 Dose: 4 ml Documented By: Admin: 04/18/22 19:45 Dose: 4 ml Documented By: Admin: 04/18/22 07:17 Dose: 4 ml Documented By: ILEANA Discontinued Medications Acetaminophen (Acetaminophen 325 Mg Tab) 650 mg PO Q6H ROBYN Stop: 05/15/22 00:29 Last Admin: 04/16/22 12:17 Dose: 650 mg Documented By: Admin: 04/16/22 05:47 Dose: 650 mg Documented By: Admin: 04/16/22 00:17 Dose: 650 mg Documented By: Admin: 04/15/22 19:18 Dose: 650 mg Documented By: Admin: 04/15/22 12:28 Dose: 650 mg Documented By: Admin: 04/15/22 05:58 Dose: 650 mg Documented By: Admin: 04/15/22 00:40 Dose: 650 mg Documented By: JERRI Albuterol (Albut/Ipratrop 3mg/0.5mg Neb 3 Ml Vial) 12 ml NEB ONE ONE; Protocol Stop: 04/14/22 17:18 Last Admin: 04/14/22 17:51 Dose: 12 ml Documented By: LIZ Albuterol (Albuterol 0.083% Nebu Soln 3 Ml Vial) 2.5 mg NEB Q6R PRN; Protocol PRN Reason: Shortness Of Breath Stop: 05/15/22 06:56 Last Admin: 04/16/22 22:02 Dose: 2.5 mg Documented By: Admin: 04/15/22 09:49 Dose: 2.5 mg Documented By: [facility] Albuterol (Albuterol 0.083% Nebu Soln 3 Ml Vial) 2.5 mg NEB NOW STA; Protocol Stop: 04/16/22 16:38 Last Admin: 04/16/22 17:28 Dose: Not Given Documented By: [facility] Dexamethasone (Dexamethasone 1 Mg Tab) 6 mg PO NOW ONE Stop: 04/15/22 18:41 Last Admin: 04/15/22 19:18 Dose: 6 mg Documented By: ARISTEO Dexamethasone Sodium Phosphate (DexamethasonePf 10 Mg/Ml Vial) 10 mg PO NOW ONE Stop: 04/14/22 21:09 Last Admin: 04/14/22 21:59 Dose: 10 mg Documented By: SARBJIT Guaifenesin (Guaifenesin 600 Mg Tabcr) 1,200 mg PO NOW STA Stop: 04/18/22 02:23 Last Admin: 04/18/22 02:54 Dose: 1,200 mg Documented By: ARISTEO Hydromorphone HCl (Hydromorphone Inj 0.5 Mg/0.5 Ml Syr) 0.5 mg IV NOW STA Stop: 04/14/22 17:21 Last Admin: 04/14/22 17:41 Dose: 0.5 mg Documented By: Hydromorphone HCl (Hydromorphone Inj 0.5 Mg/0.5 Ml Syr) 0.5 mg IV Q1H PRN PRN Reason: Pain Stop: 04/28/22 19:29 Last Admin: 04/14/22 23:51 Dose: 0.5 mg Documented By: Admin: 04/14/22 22:09 Dose: 0.5 mg Documented By: Admin: 04/14/22 19:54 Dose: 0.5 mg Documented By: SARBJIT Hydromorphone HCl (Hydromorphone Inj 0.5 Mg/0.5 Ml Syr) 0.5 mg IV Q1H PRN PRN Reason: Severe Pain Stop: 04/28/22 19:29 Last Admin: 04/15/22 01:01 Dose: 0.5 mg Documented By: JERRI Hydromorphone HCl (Hydromorphone Inj 0.5 Mg/0.5 Ml Syr) 1 mg IV Q2H PRN PRN Reason: Severe Pain Stop: 04/29/22 00:24 Last Admin: 04/15/22 10:30 Dose: 1 mg Documented By: Admin: 04/15/22 08:15 Dose: 1 mg Documented By: Admin: 04/15/22 05:58 Dose: 1 mg Documented By: Admin: 04/15/22 03:58 Dose: 1 mg Documented By: Admin: 04/15/22 02:04 Dose: 1 mg Documented By: JERRI Hydromorphone HCl (Hydromorphone Inj 0.5 Mg/0.5 Ml Syr) 1 mg IV Q1H PRN PRN Reason: Severe Pain Stop: 04/29/22 01:24 Last Admin: 04/16/22 08:08 Dose: 1 mg Documented By: Admin: 04/16/22 05:48 Dose: 1 mg Documented By: Admin: 04/16/22 04:22 Dose: 1 mg Documented By: Admin: 04/16/22 03:15 Dose: 1 mg Documented By: Admin: 04/16/22 00:36 Dose: 1 mg Documented By: Admin: 04/15/22 22:54 Dose: 1 mg Documented By: Admin: 04/15/22 21:49 Dose: 1 mg Documented By: Admin: 04/15/22 20:36 Dose: 1 mg Documented By: Admin: 04/15/22 19:14 Dose: 1 mg Documented By: Admin: 04/15/22 15:28 Dose: 1 mg Documented By: Admin: 04/15/22 12:32 Dose: 1 mg Documented By: CHIQUIS Hydromorphone HCl (Hydromorphone Inj 0.5 Mg/0.5 Ml Syr) 0.5 mg IV NOW STA Stop: 04/15/22 23:08 Last Admin: 04/15/22 23:22 Dose: 0.5 mg Documented By: ARISTEO Hydromorphone HCl (Hydromorphone Inj 1 Mg/Ml Syringe) 1 mg IV NOW STA Stop: 04/16/22 09:31 Last Admin: 04/16/22 11:03 Dose: 1 mg Documented By: CHIQUIS Hydromorphone HCl (Hydromorphone Inj 1 Mg/Ml Syringe) 1 mg IV HS PRN PRN Reason: Pain Stop: 04/30/22 20:56 Last Admin: 04/17/22 03:09 Dose: 1 mg Documented By: ARISTEO Hydromorphone HCl (Hydromorphone Inj 1 Mg/Ml Syringe) 1 mg IV NOW STA Stop: 04/17/22 07:53 Last Admin: 04/17/22 08:07 Dose: 1 mg Documented By: APOLONIA Hydromorphone HCl (Hydromorphone Inj 0.5 Mg/0.5 Ml Syr) 0.25 mg IV Q6H PRN PRN Reason: Pain NOT RELEIVED BY [employer] Stop: 05/01/22 14:35 Last Admin: 04/17/22 15:35 Dose: 0.25 mg Documented By: JAMIE Hydromorphone HCl (Hydromorphone Inj 1 Mg/Ml Syringe) 1 mg IM HS PRN PRN Reason: Severe Pain Stop: 05/02/22 00:09 Last Admin: 04/18/22 00:18 Dose: 1 mg Documented By: ARISTEO Sodium Chloride (Nss 1000ml) 1,000 mls @ 999 mls/hr IV .Q1H1M ROBYN Stop: 04/14/22 18:30 Last Infusion: 04/14/22 19:17 Dose: 0 mls/hr Documented By: Admin: 04/14/22 17:42 Dose: 999 mls/hr Documented By: SR Acetaminophen (Ofirmev) 1,000 mg in 100 mls @ 400 mls/hr IV NOW STA Stop: 04/14/22 17:34 Last Infusion: 04/14/22 18:10 Dose: 0 mls/hr Documented By: Admin: 04/14/22 17:40 Dose: 400 mls/hr Documented By: SR Sodium Chloride (Nss 1000ml) 1,000 mls @ 150 mls/hr IV .Q6H40M ROBYN Stop: 05/14/22 17:29 Last Infusion: 04/15/22 06:41 Dose: 0 mls/hr Documented By: Admin: 04/15/22 05:57 Dose: 150 mls/hr Documented By: Infusion: 04/15/22 05:57 Dose: 150 mls/hr Documented By: Admin: 04/14/22 23:53 Dose: 150 mls/hr Documented By: Infusion: 04/14/22 23:53 Dose: 0 mls/hr Documented By: Admin: 04/14/22 19:08 Dose: 150 mls/hr Documented By: SARBJIT Sodium Chloride (Nss 1000ml) 1,000 mls @ 15 mls/hr IV .Q24H [facility] Stop: 04/30/22 08:19 Last Admin: 04/16/22 13:36 Dose: Not Given Documented By: CHIQUIS Vancomycin HCl 1,500 mg/ (Sodium Chloride) 530 mls @ 200 mls/hr IV ONE ONE Stop: 04/18/22 13:38 Last Infusion: 04/18/22 14:10 Dose: 0 mls/hr Documented By: Admin: 04/18/22 11:31 Dose: 200 mls/hr Documented By: JAMIE Ketorolac Tromethamine (Ketorolac Tromethamine 15 Mg/Ml Vial) 15 mg IV Q4H PRN PRN Reason: Mild Pain Stop: 04/20/22 00:23 Last Admin: 04/15/22 10:30 Dose: 15 mg Documented By: Admin: 04/15/22 05:57 Dose: 15 mg Documented By: Admin: 04/15/22 02:04 Dose: 15 mg Documented By: Ketorolac Tromethamine (Ketorolac Tromethamine 15 Mg/Ml Vial) 10 mg IV Q4H ROBYN Stop: 04/20/22 23:14 Last Admin: 04/16/22 16:33 Dose: Not Given Documented By: Admin: 04/16/22 12:17 Dose: 10 mg Documented By: Admin: 04/16/22 08:09 Dose: 10 mg Documented By: Admin: 04/16/22 03:09 Dose: 10 mg Documented By: Admin: 04/15/22 23:23 Dose: 10 mg Documented By: ARISTEO Lidocaine (Lidocaine 5% 1 Patch) 1 patch TD DAILY@2000 [facility] Stop: 05/15/22 19:59 Last Admin: 04/16/22 20:18 Dose: 1 patch Documented By: Admin: 04/15/22 20:14 Dose: 1 patch Documented By: ARISTEO Miscellaneous (Remove Lidoderm Patch) 1 each N/A DAILY@0800 [facility] Stop: 05/15/22 19:58 Last Admin: 04/17/22 08:15 Dose: 1 each Documented By: Admin: 04/16/22 08:53 Dose: 1 each Documented By: Admin: 04/15/22 20:52 Dose: Not Given Documented By: ARISTEO Ondansetron HCl (Ondansetron Inj 2 Mg/Ml 2 Ml Vial) 4 mg IV NOW [facility] Stop: 04/14/22 17:21 Last Admin: 04/14/22 17:42 Dose: 4 mg Documented By: Imaging Data Radiologist's Impression: Chest X-Ray 04/14/22 17:18 XR chest 1V portable CLINICAL HISTORY: weakness TECHNIQUE: Single frontal radiograph of the chest was obtained. Comparison: Comparison is made to chest radiograph 12/13/2021 FINDINGS: No lines and tubes are seen. The cardiomediastinal silhouette is normal. The lungs are clear. Increased prominence of the left lower lobe is likely due to positioning. No evidence of pleural effusion or pneumothorax. IMPRESSION: No acute abnormalities and in particular no evidence of pneumonia. ACT 112: Negative or not required by law. Electronically signed by: Erik Estes M.D. 04/14/2022 6:26 PM Blood Pressure Blood Pressure Findings: Normal blood pressure Blood Pressure Disposition: did not require urgent referral Discharge Plan Visit Data Chief Complaint: Cough Stated Complaint: COUGH, FATIGUE, WEAKNESS ED Provider: Nancy Aviles Discharge Problem: Sickle cell disease with crisis, COVID-19 virus infection Patient Disposition: Admitted As Inpatient Discharge Instructions Interventions: ED Discharge Assessment Last Done: 04/14/22 23:46
[2022-04-14 22:28] LABS: Appearance Urine Clear (Clear); Bacteria Urine Automated 1+ (Negative); Bilirubin Urine Negative (Negative); Blood Urine Negative (Negative); Color Urine Yellow; Epithelial Cell Urine Auto >30 /lpf (0-5); Glucose Urine UA Negative (Negative); Ketones Urine Negative (Negative); Leukocyte Esterase Urine Trace (Negative); Nitrite Urine Negative (Negative); Protein Urine Negative (Negative); RBC Urine Automated 0-4 /hpf (0-4); Urobilinogen Urine Negative (Negative); pH Urine 5.5 (4.5-7.5)
[2022-04-14] MEDS ORDERED: ACETAMINOPHEN 325 MG TAB PO PRN (23:46)
[2022-04-15] MEDS ORDERED: KETOROLAC TROMETHAMINE 15 MG/ML VIAL IV PRN ×2 (00:24→10:36)
[2022-04-15] MEDS ORDERED: HYDROmorphone INJ 0.5 MG/0.5 ML SYR IV PRN (00:25)
[2022-04-15] MEDS: ACETAMINOPHEN 325 MG TAB PO SCH ×4 (00:40→19:18)
[2022-04-15] MEDS: oxyCODONE HCL IR 5 MG TAB (IMMEDIATE RELEASE) PO PRN ×2 (00:43→20:14)
[2022-04-15] MEDS: SERTRALINE HCL 50 MG TABLET PO SCH ×2 (00:44→20:15)
[2022-04-15] MEDS ORDERED: NALOXONE HCL 0.4 MG/1 ML VIAL/CARP IV PRN (01:59)
[2022-04-15] MEDS: HYDROmorphone INJ 0.5 MG/0.5 ML SYR IV PRN ×11 (02:04→22:54)
[2022-04-15] MEDS: KETOROLAC TROMETHAMINE 15 MG/ML VIAL IV PRN ×3 (02:04→10:30)
[2022-04-15] MEDS: SODIUM CHLORIDE 0.9% 1000ML 1,000 ML IV SCH (05:57)
[2022-04-15] MEDS: SODIUM CHLORIDE 0.45 % 1,000 ML IV SCH ×2 (06:43→15:28)
--- NOTE | 2022-04-15 07:11 | Hospitalist Progress Note ---
Date of Service April 15, 2022 Assessment & Plan (1) Sickle cell disease with crisis: Plan: Sickle cell disease/pain crisis -1st day of symptoms - received bolus IVF x1, Dilaudid, dexamethasone x1 in the ER. -Pain crisis likely secondary to COVID-19 infection. - Pain control: - tylenol 650 mg q6hr scheduled - mild: toradol 15mg IV q4hr PRN - mod: oxycodone 5 mg PO q4hr PRN - severe: dilaudid 1 mg IV q1hr PRN - 1/2 NS 150 mL/hr Sickle cell disease with multiple crises in the past year - pt does not have a PCP in the area, she does not follow any outpatient regimen - through previous conversation with outpatient providers in [place], pt seems to be noncompliant w/ outpatient regimen - encourage pt to establish care here to try different management plans to prevent recurrent crises. Pt agreeable to establish care post d/c COVID-19 - 1st day of symptoms. Unclear if responsible for current presentation. - Pt. qualifies for antiviral therapy, given history sickle cell disease. Pt had COVID-19 before, for which she was hospitalized x2 weeks. - family brought in paxlovid prescription from pharmacy, 300/100mg BID x5 days - Dexamethasone 10mg in ER x1, continuation does not appear necessary - albuterol neb PRN Anxiety: - continue home Sertraline 75 mg qhs Asthma - albuterol neb q6hr PRN (2) COVID-19 virus infection: (3) Anxiety: (4) Asthma: Plan Code: Full code Dispo: Med-Surg with telemetry Fluids/electrolytes: 1/2 NS 100 mL/hr Diet: regular DVT Prophylaxis: SCDs Consults: PT/OT Admission and Anticipated Discharge Date Admission Date: April 14, 2022 Supervising Physician Co-Signing Physician Notes I personally examined the patient and verified all knox points of history and exam, discussed case, and agree with decision making with Dr Wang ongoing pain - but 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 breathing still tight - notes that nebs help. would like to go home tomorrow if possible vitals noted nad heent nc at mmm lungs quiet but clear no r/r/w good effort skin no rashes no pallor or icterus covid/asthma flare - paxlovid, with persistent need for nebs, somewhat quiet lungs - steroids. 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 fluids, supportive care. otherwise as above Subjective Pt is a 22 yo female with PMH of sickle cell disease and anxiety presenting with right hip/leg pain and lower back pain. She has a cough that began 04/14. She is positive for COVID-19. 04/15/2022: Pt explains to me that her pain was 10/10 mostly in her back and right hip when she first came to the hospital. Since receiving pain medications, she is now a 6/10. She explains to me that during previous hospitalizations she has received 0.3 mg dilaudid every 10 minutes. She feels that her chest is tight but she is denying SOB. She is requesting a nebulizer treatment. She does have a history of asthma. She does not currently follow with a PCP in this area and does not take any maintenance medications for her sickle cell. Physical Exam Constitutional: Pt appears to be in severe pain, taking pauses in talking to breath through some breakthrough pain. Vitals WNL. >90% on RA. Eyes: no conjunctival abnormality Respiratory: Expiratory wheezing noted especially in right lung base. Non labored breathing Cardiovascular: RRR. No murmur noted. No LL edema. Gastrointestinal (Abdomen): Nontender, +BS. No masses noted. Skin: no rashes, warm and dry Psychiatric: Alert. Mood and affect congruent. Results & Data Results & Data ([facility]) Vital Signs (Past 12 Hours) Vital Signs Temp Pulse Pulse Pulse Resp BP Pulse Ox 04/15/22 01:08 85 04/15/22 00:18 37.2 C 74 18 117/74 97 04/14/22 20:20 108 H 28 H 100 04/14/22 20:29 103 H 128/71 98 04/14/22 20:10 117 H 24 99 04/14/22 20:00 114 H 24 100 04/14/22 19:50 133 H 22 100 04/14/22 19:40 111 H 25 H 100 04/14/22 19:30 120 H 25 H 100 04/14/22 19:20 120 H 16 99 04/14/22 19:10 118 H 24 100 O2 Del Method 04/15/22 01:08 04/15/22 00:18 Room Air 04/14/22 20:20 04/14/22 20:29 04/14/22 20:10 04/14/22 20:00 04/14/22 19:50 04/14/22 19:40 04/14/22 19:30 04/14/22 19:20 04/14/22 19:10 Resident Activity Tracking Resident Involvement: Resident Care Provided Care Provided: Adult Hospital Medicine
[2022-04-15 07:15] LABS: Hematocrit (blood only) 28.2 % (34.1-44.9); Hemoglobin 10.6 g/dl (12.0-16.0); Mean Corpuscular Hemoglobin 30.7 pg (25.0-34.0); Mean Corpuscular Hgb Conc 37.6 g/dL (32.0-36.0); Mean Corpuscular Volume 81.7 fL (80.0-100.0); Nucleated RBC # (auto) 0.08 K/uL (0-0); Nucleated RBC % (auto) 0.4 %; Platelet Count 358 K/uL (130-400); RDW Coefficient of Variation 13.6 % (11.5-14.5); RDW Standard Deviation 40.2 fL (36.4-46.3); Red Blood Count 3.45 M/uL (3.93-5.22); White Blood Count 19.15 K/ul (4.8-10.8)
[2022-04-15 07:38] LABS: Anion Gap 6 (3-11); BUN Creatinine Ratio 9.4 (10-20); Blood Urea Nitrogen 5 mg/dl (6-23); Carbon Dioxide 24 mmol/L (21-32); Chloride 108 mmol/L (98-107); Creatinine Clr Calc Pharmacy 163.3 ml/min; Est GFR (African American) > 150.0 ml/min; Est GFR (Non-African American) 135.7 ml/min; Glucose 157 mg/dl (70-99(Fasting)); Potassium 4.1 mmol/L (3.5-5.1); Sodium 138 mmol/L (136-145)
[2022-04-15 07:55] LABS: Basophils # (auto) 0.06 K/uL (0-0.2); Basophils % (auto) 0.3 %; Immature Granulocytes % (auto) 0.5 %; Lymphocytes # (auto) 0.29 K/uL (1.2-3.4); Lymphocytes % (auto) 1.5 %; Monocytes # (auto) 0.17 K/uL (0.24-0.82); Monocytes % (auto) 0.9 %; Neutrophils # (auto) 18.53 K/uL (1.4-6.5); Neutrophils % (auto) 96.8 %; Polychromasia 1+; Target Cells 3+; Toxic Vacuolation 2+
--- NOTE | 2022-04-15 08:02 | Medical Student Progress Note ---
Date of Service April 15, 2022 Assessment & Plan (1) Sickle cell disease with crisis: Plan: Sickle Cell Crisis -Began experiencing recognizable pain (back pain, hip pain) for sickle cell crisis yesterday (04/14/22) & presented to ED. - Received IVF, Dilaudid, dexamethasone in the ER. -Pain crisis likely secondary to COVID-19 infection. - Pain control per historical crises is: - tylenol 650 mg q6hr scheduled - mild: toradol 15mg IV q4hr PRN - mod: oxycodone 5 mg PO q4hr PRN - severe: dilaudid 1 mg IV q2hr PRN - Hence, patient had been on dilaudid 1 mg IV q2hr PRN. We increased her dilaudid dosage to 1mg IV q1hr PRN. - Consider CHIN STRAP SEWER if pain control is not sufficient with q1hr dilaudid. - Patient has tylenol 650 mg q6hr scheduled. - Also ondansetron hcl 4 mg PO Q4h PRN, toradol 10 mg IV q4hr PRN, oxycodone hcl 5 mg PO q4hr PRN ordered as well. - Continue 1/2 NS 150 mL/hr - Continue assessing patient for pain management and improvement. 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 Sounds like patient might not be currently taking a chronic medication, so consider hydroxyurea regimen. - Hgb has dropped to 10.6. Could be secondary to hemolysis, bilirubin elevated only minimally at 1.5. Could also be due to dilutional anemia secondary to fluids. COVID-19 - Yesterday (04/14) was 1st day of symptoms. Unclear if responsible for current presentation. - Pt. qualifies for antiviral therapy, given history sickle cell disease. Pt. has had COVID-19 before, for which she was hospitalized x2 weeks. - family brought in paxlovid prescription from pharmacy, 300/100mg BID x5 days -Dexamethasone 10mg in ER x1, continuation does not appear necessary - Consider chest XR if symptoms worsen. Asthma - On re-evaluation, patient does report history of asthma. Controlled at home with albuterol inhaler. - Receiving nebulizer treatment. - Considering patient's wheezing on exam, might give oral corticosteroids if albuterol is not managing in hospital. Anxiety - Continue home Sertraline 75 mg qhs (2) COVID-19 virus infection: (3) Anxiety: (4) Asthma: Plan Code:Full code Dispo:Remain inpatient FEN/GI:Regular diet, mIVF DVT Prophylaxis:SCDs Admission and Anticipated Discharge Date Admission Date: April 14, 2022 Mikey Kimbrough is a 22 year old female with a PMH of sickle cell disease (most recently hospitalized in November) who presented to the emergency department yesterday (04/14) presenting with chief concern of cough and generalized body pain for the day prior. She was in her usual state of health today when she abruptly began coughing. Prior to my evaluation: 04/14: Per ED note, patient used albuterol for this cough, which helped for a time before wearing off. However, she began to experience generalized pain, worst in her hips and lower back, so she decided to come in to be evaluated. She denied fever, chills, hemoptysis, pleuritic chest pain, wheeze, fatigue, nausea, vomiting, dysgeusia, dysuria, sick contacts at time of evaluation in ED. She is vaccinated ([employer] but not boosted. 04/15: I evaluated the patient, who was resting in bed. While she began coughing yesterday and tested positive for COVID-19 upon presenting to the ED, reports her chief concern is her sickle cell pain crisis. Reports she feels similar to her usual sickle cell crises. Her main symptom is back pain. She was previously experiencing right hip pain, but this has improved. She still has a cough and is experiencing chest tightness/heaviness with associated SOB, which she feels is due to her respiratory symptoms. She feels like she is beginning to notice wheezing. Denies chest pain, arm pain, leg pain, rib pain, neck pain, lightheadedness, dizziness, numbness or tingling currently, abdominal pain, nausea, vomiting, diarrhea. Physical Exam Constitutional: Resting in bed. Not in acute distress. Slightly ill-appearing. Appears tired and at times dozing off and less interactive (secondary to pain, per patient). Eyes: Conjunctivae pink with no discharge or abnormality. Sclerae anicteric. ENMT: Oral mucosa pink and moist. No erythema. Trachea midline. Neck: No cervical lymphadenopathy. Normal ROM. Respiratory: Wheezes present in bilateral lung hurd. Otherwise clear to auscultation bilaterally. No rhonchi or rales. Cardiovascular: Regular rate and rhythm. No murmurs, rubs, gallops. Gastrointestinal (Abdomen): Nondistended, normal on inspection. Skin: Warm & dry. No rashes or lesions. Neurologic: Alert & oriented x 3. Psychiatric: Appropriate mood and affect. Results & Data ([facility]) Vital Signs (Past 12 Hours) Vital Signs Temp Pulse Pulse Pulse Resp BP Pulse Ox 04/15/22 07:14 71 04/15/22 01:08 85 04/15/22 00:18 37.2 C 74 18 117/74 97 04/14/22 20:20 108 H 28 H 100 04/14/22 20:29 103 H 128/71 98 04/14/22 20:10 117 H 24 99 04/14/22 20:00 114 H 24 100 04/14/22 19:50 133 H 22 100 O2 Del Method 04/15/22 07:14 04/15/22 01:08 04/15/22 00:18 Room Air 04/14/22 20:20 04/14/22 20:29 04/14/22 20:10 04/14/22 20:00 04/14/22 19:50 Laboratory Results My interpretations: CBC: leukocytosis of 19.15, RBC decreased at 3.45, moderate anemia with Hgb 10.6, Hct decreased at 28.2, elevated reticulocytes 5.7% BMP: Cr decreased at 0.53, Glucose elevated at 157, bilirubin elevated at 1.5 UA with no significant findings Sars-CoV-2 (PCR): positive on 04/14/22 @ 17:52 Influenza A & B and RSV: negative
[2022-04-15] MEDS: FOLIC ACID 1 MG TAB PO SCH (08:12)
[2022-04-15] MEDS: POLYETHYLENE (MIRALAX) 17 GM PACK PO SCH (08:13)
[2022-04-15] MEDS: ALBUTEROL 0.083% NEBU SOLN 3 ML VIAL NEB PRN (09:49)
[2022-04-15] MEDS: NIRMATRELVIR/RITONAVIR 1 EA TAB PO SCH ×2 (11:28→20:16)
[2022-04-15] MEDS: SENNA 8.6 MG TAB PO SCH (12:28)
--- NOTE | 2022-04-15 13:56 | Electrocardiogram Report ---
Test Reason : Blood Pressure : / mmHG Vent. Rate : 083 BPM Atrial Rate : 083 BPM P-R Int : 156 ms QRS Dur : 084 ms QT Int : 394 ms P-R-T Axes : 059 053 042 degrees QTc Int : 462 ms Normal sinus rhythm Normal ECG When compared with ECG of 13-DEC-2021 00:20, No significant change was found Confirmed by Leon Lamar [id number]) on 04/15/2022 1:56:03 PM Referred By: REFERRED SELF Confirmed By:Leon Lamar
[2022-04-15] MEDS ORDERED: dexAMETHasone 1 MG TAB PO ONE (18:40)
--- NOTE | 2022-04-15 19:19 | Billing Data ---
Date of Service April 15, 2022 Coding Level of Care Code 76814 Subseq Hosp Care Lvl 3
[2022-04-15] MEDS: LIDOCAINE 5% 1 PATCH TD SCH (20:14)
[2022-04-15] MEDS ORDERED: HYDROmorphone INJ 0.5 MG/0.5 ML SYR IV STA (23:07)
[2022-04-15] MEDS: KETOROLAC TROMETHAMINE 15 MG/ML VIAL IV SCH (23:23)
[2022-04-16] MEDS: ACETAMINOPHEN 325 MG TAB PO SCH ×3 (00:17→12:17)
[2022-04-16] MEDS: SODIUM CHLORIDE 0.45 % 1,000 ML IV SCH ×4 (00:19→22:28)
--- NOTE | 2022-04-16 00:22 | Billing Data ---
Date of Service April 16, 2022 Coding Level of Care Code 63535 Initial Inpt Care Lvl 3
[2022-04-16] MEDS: HYDROmorphone INJ 0.5 MG/0.5 ML SYR IV PRN ×5 (00:36→08:08)
[2022-04-16] MEDS: KETOROLAC TROMETHAMINE 15 MG/ML VIAL IV SCH ×4 (03:09→16:33)
[2022-04-16 06:57] LABS: Basophils # (auto) 0.05 K/uL (0-0.2); Basophils % (auto) 0.3 %; Hematocrit (blood only) 27.2 % (34.1-44.9); Hemoglobin 10.1 g/dl (12.0-16.0); Immature Granulocytes # (auto) 0.38 K/uL (0.00-0.02); Immature Granulocytes % (auto) 1.9 %; Lymphocytes # (auto) 0.55 K/uL (1.2-3.4); Lymphocytes % (auto) 2.8 %; Mean Corpuscular Hemoglobin 30.8 pg (25.0-34.0); Mean Corpuscular Hgb Conc 37.1 g/dL (32.0-36.0); Mean Corpuscular Volume 82.9 fL (80.0-100.0); Mean Platelet Volume 9.8 fL (9.4-12.3); Monocytes # (auto) 0.44 K/uL (0.24-0.82); Monocytes % (auto) 2.3 %; Neutrophils # (auto) 18.08 K/uL (1.4-6.5); Neutrophils % (auto) 92.7 %; Nucleated RBC # (auto) 0.27 K/uL (0-0); Nucleated RBC % (auto) 1.4 %; Platelet Count 344 K/uL (130-400); Poikilocytosis Present; Polychromasia 1+; RDW Coefficient of Variation 13.9 % (11.5-14.5); RDW Standard Deviation 41.2 fL (36.4-46.3); Red Blood Count 3.28 M/uL (3.93-5.22); Reticulocyte % 7.6 % (0.5-2.0); Reticulocytes # 0.25 10^6/uL (0.02-0.10); Schistocytes 1+; Stomatocytes 1+; Target Cells 2+
[2022-04-16 07:02] LABS: Albumin Globulin Ratio 1.6 (0.9-2); Albumin Level 4.2 gm/dl (3.4-5.0); BUN Creatinine Ratio 14.5 (10-20); Bilirubin,Total 3.3 mg/dl (0.2-1.0); Calcium 9.3 mg/dl (8.5-10.1); Creatinine Clr Calc Pharmacy 139.6 ml/min; Est GFR (African American) 149.4 ml/min; Est GFR (Non-African American) 128.9 ml/min; Globulin 2.6 gm/dl (2.5-4.0); Potassium 4.5 mmol/L (3.5-5.1); Total Protein 6.8 gm/dl (6.0-8.3)
--- NOTE | 2022-04-16 07:25 | Hospitalist Progress Note ---
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 Pt had COVID-19 before, for which she was hospitalized x2 weeks. - family brought in paxlovid prescription from pharmacy, 300/100mg BID x5 days (began 04/15) - Dexamethasone 10mg in ER x1, 6 mg x1 (04/15) - albuterol neb PRN Asthma - pt given 6 mg dose of dexamethasone yesterday for concern of wheeziness/decreased air movement - pt airflow improved today - continue albuterol neb q6hr PRN Sickle cell disease with multiple crises in the past year - pt does not have a PCP in the area, she does not follow any outpatient regimen - through previous conversation with outpatient providers in [place], pt seems to be noncompliant w/ outpatient regimen - encourage pt to establish care here to try different management plans to prevent recurrent crises. Pt agreeable to establish care post d/c Anxiety - continue home Sertraline 75 mg qHS (2) COVID-19 virus infection: (3) Anxiety: (4) Asthma: Plan Code: Full code Dispo: med/surg with telemetry Fluids/electrolytes: 1/2 NS 100 mL/hr Diet: regular DVT Prophylaxis: SCDs Admission and Anticipated Discharge Date Admission Date: April 14, 2022 Supervising Physician Co-Signing Physician Notes I personally examined the patient and verified all knox points of history and exam, discussed case, and agree with decision making with Dr Wang Very upset earlier in the day. Notes pain being poorly controlledPCA start edwas upset about the dosedose pretty much immediately adjusted. Later followed up and she was much more comfortable with better pain control. Breathing overall better, although she notes that she would like a nebulizer. Extensive phone calls from outsidepatient had [facility] and communicating largely through service excellence. Finally after several phone calls [id number] I was able to connect with part [place] [facility] [place] overall situationhe noted that largely they would be doing things the same, but noted that they do tend to avoid corticosteroids even in an asthma flare with sickle cell patientsfor concern of progression of pain crisis (on review of literature such as up-to-dateI had noted this was not seen anywhere, and therefore appreciated his guidance). After discussion with him, he offered transfer to [facility] I then discussed with the patient, and after consideration, she declined noting that she really feels a lot better now and that overall her pain is better controlled. vitals noted earlier today somewhat upset, although also at times groggy from pain medication when I was in the room. This afternoon on revisit much more comfortable groggy from pain medication but communicative and in no distress. HEENT normocephalic atraumatic mucous membranes moist. Lungs much better air entry than last night, some coarse wheeze sounds but not tight good air entry no rales no rhonchi good effort no accessory muscle use. Neuro shows cranial nerves II through XII be grossly intact was motor and sensory intact covid/asthma flare - paxlovid, continue nebulizers. Lungs do sound more open. Discussed the steroid situation with the patient openlynoting that last night in my clinical judgment I was very concerned about asthma progressing and at the same time did a bit lower dosing of steroids and then normally would, with improvement in her breathing and lungs today. After discussion with the team at [place], they would have done an exchange transfusion sooner than steroids, and I thanked them for their guidance and information in this regard. Again on review of commonly excepted standard of care resources such as [id number] harms of steroids are not mentioned in sickle cell vaso-occlusive crisis literature (rather there is simply a section that not surprisingly notes that it does not really help). However, given this expert guidance from [place], will refrain from any further corticosteroids, although her dosing overall was fairly short-lived. Most importantly, she seems to be doing the same with the COVID, may be slightly better, and definitely doing better with the asthma. Continue serial exams, supportive cares, Paxil bid, nebulizers. sickle cell acute pain crisis -doing much better on CLAIMS VICE PRESIDENT. Continue fluids. Continue supportive care. otherwise as above Subjective Pt is a 22 yo female with PMH of sickle cell disease and anxiety presenting with right hip/leg pain and lower back pain. She has a cough that began 04/14. She is positive for COVID-19. 04/15/2022: Pt explains to me that her pain was 10/10 mostly in her back and right hip when she first came to the hospital. Since receiving pain medications, she is now a 6/10. She explains to me that during previous hospitalizations she has received 0.3 mg dilaudid every 10 minutes. She feels that her chest is tight but she is denying SOB. She is requesting a nebulizer treatment. She does have a history of asthma. She does not currently follow with a PCP in this area and does not take any maintenance medications for her sickle cell. 04/16/2022: Overnight, pt requested lidocaine patch for knee pain and an increase in her dilaudid. The pain in her back and arm/leg have intensified overnight. She believes that the steroid dose may have worsened her pain with this crisis because she explains that her pain is not usually this bad. Pt began a CLAIMS VICE PRESIDENT pump today. Physical Exam Constitutional: Moderate distress. Vitals WNL. Eyes: no conjunctival abnormality Respiratory: CTA bilaterally. No rhonchi, wheezing, or crackles. Non labored breathing. Cardiovascular: RRR. No murmur noted. No LL edema. Psychiatric: Alert. Mood and affect congruent. Results & Data Results & Data ([facility]) Vital Signs (Past 12 Hours) Vital Signs Temp Pulse Pulse Resp BP BP Pulse Ox 04/16/22 07:02 74 04/16/22 04:33 36.8 C 88 20 119/76 91 04/15/22 22:19 76 04/15/22 23:11 37 C 78 18 126/81 97 04/15/22 19:26 36.6 C 78 20 111/67 92 O2 Del Method 04/16/22 07:02 04/16/22 04:33 Room Air 04/15/22 22:19 04/15/22 23:11 Room Air 04/15/22 19:26 Room Air Resident Activity Tracking Resident Involvement: Resident Care Provided Care Provided: Adult Hospital Medicine
[2022-04-16] MEDS ORDERED: NALOXONE HCL 0.4 MG/1 ML VIAL/CARP IV PRN (08:19)
[2022-04-16] MEDS ORDERED: SODIUM CHLORIDE 0.9% 1000ML 1,000 ML IV SCH (08:30)
[2022-04-16] MEDS: FOLIC ACID 1 MG TAB PO SCH (09:11)
[2022-04-16] MEDS: NIRMATRELVIR/RITONAVIR 1 EA TAB PO SCH ×2 (09:11→20:20)
[2022-04-16] MEDS: POLYETHYLENE (MIRALAX) 17 GM PACK PO SCH (09:11)
[2022-04-16] MEDS: SENNA 8.6 MG TAB PO SCH (09:11)
[2022-04-16] MEDS ORDERED: HYDROmorphone INJ 1 MG/ML SYRINGE IV STA (09:30)
[2022-04-16] MEDS: HYDROmorphone PCA 30 MG/30 ML IV PRN (11:05)
[2022-04-16] MEDS ORDERED: ACETAMINOPHEN 325 MG TAB PO PRN (16:35)
[2022-04-16] MEDS ORDERED: ALBUTEROL 0.083% NEBU SOLN 3 ML VIAL NEB STA (16:37)
--- NOTE | 2022-04-16 18:38 | Billing Data ---
Date of Service April 16, 2022 Coding Level of Care Code 17323 Subseq Hosp Care Lvl 3
[2022-04-16] MEDS: LIDOCAINE 5% 1 PATCH TD SCH (20:18)
[2022-04-16] MEDS: SERTRALINE HCL 50 MG TABLET PO SCH (20:19)
[2022-04-16] MEDS ORDERED: HYDROmorphone INJ 1 MG/ML SYRINGE IV PRN (20:57)
[2022-04-16] MEDS: ALBUTEROL 0.083% NEBU SOLN 3 ML VIAL NEB PRN (22:02)
[2022-04-17] MEDS: SODIUM CHLORIDE 0.45 % 1,000 ML IV SCH ×4 (05:04→22:36)
--- NOTE | 2022-04-17 06:52 | Hospitalist Progress Note ---
Date of Service April 17, 2022 Assessment & Plan (1) Sickle cell disease with crisis: Plan: Pt is a 22 yo female with PMH of sickle cell disease and anxiety presenting with right hip/leg pain and lower back pain. She has a cough that began 04/14. She is positive for COVID-19. Sickle cell disease/pain crisis -3rd day of symptoms - received bolus IVF x1, Dilaudid, dexamethasone 10 mg x1 in the ER -Pain crisis likely secondary to COVID-19 infection - original pain control plan: - tylenol 650 mg q6hr scheduled - mild: toradol 15mg IV q4hr PRN - mod: oxycodone 5 mg PO q4hr PRN - severe: dilaudid 1 mg IV q1hr PRN - pt now on [employer] pump: 0.3 mg q8 minutes PRN - 1/2 NS 150 mL/hr COVID-19 - pt cough resolved - Pt qualifies for antiviral therapy, given history sickle cell disease. Pt had COVID-19 before, for which she was hospitalized x2 weeks. - family brought in paxlovid prescription from pharmacy, 300/100mg BID x5 days (began 04/15) - Dexamethasone 10mg in ER x1, 6 mg x1 (04/15) - albuterol neb PRN Asthma - pt given 6 mg dose of dexamethasone 04/15 for concern of wheeziness/decreased air movement - pt airflow since improved - continue albuterol neb q6hr PRN Sickle cell disease with multiple crises in the past year - pt does not have a PCP in the area, she does not follow any outpatient regimen - through previous conversation with outpatient providers in [place], pt seems to be noncompliant w/ outpatient regimen - encourage pt to establish care here to try different management plans to prevent recurrent crises. Pt agreeable to establish care post d/c Anxiety - continue home Sertraline 75 mg qHS (2) COVID-19 virus infection: (3) Anxiety: (4) Asthma: Plan Code: Full code Dispo: med/surg with telemetry Fluids/electrolytes: 1/2 NS 100 mL/hr Diet: regular DVT Prophylaxis: SCDs Admission and Anticipated Discharge Date Admission Date: April 14, 2022 Subjective Pt is a 22 yo female with PMH of sickle cell disease and anxiety presenting with right hip/leg pain and lower back pain. She has a cough that began 04/14. She is positive for COVID-19. 04/15/2022: Pt explains to me that her pain was 10/10 mostly in her back and right hip when she first came to the hospital. Since receiving pain medications, she is now a 6/10. She explains to me that during previous hospitalizations she has received 0.3 mg dilaudid every 10 minutes. She feels that her chest is tight but she is denying SOB. She is requesting a nebulizer treatment. She does have a history of asthma. She does not currently follow with a PCP in this area and does not take any maintenance medications for her sickle cell. 04/16/2022: Overnight, pt requested lidocaine patch for knee pain and an increase in her dilaudid. The pain in her back and arm/leg have intensified overnight. She believes that the steroid dose may have worsened her pain with this crisis because she explains that her pain is not usually this bad. Pt began a [employer] pump today. 04/17/2022: Results & Data Results & Data ([facility]) Vital Signs (Past 12 Hours) Vital Signs Temp Pulse Pulse Resp BP BP Pulse Ox 04/17/22 02:57 36.8 C 85 18 138/72 94 04/16/22 22:26 83 04/16/22 22:30 37.2 C 84 20 124/84 95 04/16/22 22:02 70 18 91 O2 Del Method 04/17/22 02:57 Room Air 04/16/22 22:26 04/16/22 22:30 Room Air 04/16/22 22:02 Room Air Resident Activity Tracking Resident Involvement: Resident Care Provided Care Provided: Adult Hospital Medicine
[2022-04-17 07:40] LABS: Albumin Globulin Ratio 1.7 (0.9-2); Albumin Level 4.1 gm/dl (3.4-5.0); BUN Creatinine Ratio 22.2 (10-20); Bilirubin,Total 2.1 mg/dl (0.2-1.0); Calcium 8.9 mg/dl (8.5-10.1); Creatinine Clr Calc Pharmacy 137.4 ml/min; Est GFR (African American) 148.6 ml/min; Est GFR (Non-African American) 128.2 ml/min; Globulin 2.4 gm/dl (2.5-4.0); Potassium 4.3 mmol/L (3.5-5.1); Total Protein 6.5 gm/dl (6.0-8.3)
[2022-04-17] MEDS ORDERED: HYDROmorphone INJ 1 MG/ML SYRINGE IV STA (07:52)
--- NOTE | 2022-04-17 07:57 | Medical Student Progress Note ---
Date of Service April 17, 2022 Assessment & Plan (1) Sickle cell disease with crisis: Plan: Sickle Cell Crisis - Began experiencing recognizable pain (back pain, hip pain) for sickle cell crisis 3 days ago (04/14/22) & presented to ED. - Received IVF, Dilaudid, dexamethasone in the ER. -Pain crisis likely secondary to COVID-19 infection. - Pain control per historical crises is: - tylenol 650 mg q6hr scheduled - mild: toradol 15mg IV q4hr PRN - mod: oxycodone 5 mg PO q4hr PRN - severe: dilaudid 1 mg IV q2hr PRN - Hence, patient had been on dilaudid 1 mg IV q2hr PRN. Increased her dilaudid dosage to 1mg IV q1hr PRN on 04/15. - Began patient on [employer] pump 0.3 mg q8 minutes PRN yesterday (04/16) - Patient given additional dose 1 mg of dilaudid this morning - Patient would like to get home as soon as possible, but she is still on significant dosage of dilaudid: - Planned to decrease her [employer] dosage to 0.25 mg q15 minutes PRN and give an additional 0.25 mg q6h IV prn, and attempt to taper down her dilaudid. Discontinue 1 mg prn at night. - We re-evaluated patient, who doesn't feel she can move down as significantly on her dosage of dilaudid. Hence, we prescribed 0.3 mg dilaudid q10 minutes [employer] with no extra PRN's. Focus on 10-20% reduction in dose of dilaudid instead of frequency of administration. - Patient is also receiving lidocaine patches for knee and shoulder. - Also tylenol 650 mg q6hr prn, ondansetron hcl 4 mg PO Q4h PRN, oxycodone hcl 5 mg PO q4hr PRN, naloxone hcl 0.1 mg IV prn ordered as well. - Continue 1/2 NS 150 mL/hr - Continue assessing patient for pain management and improvement. - Hgb 10.0 today but has been steadily fluctuating 10.0-11.4 throughout her stay. Bilirubin elevated at 2.1 but down from 3.3 yesterday, so anemia could be hemolysis related or dilutional secondary to fluids. - Chest XR was ordered on admission, showed no acute abnormalities or infiltrates concerning for Acute Chest Syndrome. Multiple sickle cell crises in last year - Sounds like patient might not be currently taking a chronic medication, so consider hydroxyurea regimen. Plan to discuss with her heme onc provider. - Patient agreed to be seen by resident Dr. Wang as PCP. COVID-19 - Symptoms began 3-4 days ago (04/14). Unclear if responsible for current presentation. - Cough resolved yesterday (04/16) - Pt. qualifies for antiviral therapy, given history sickle cell disease. Pt. has had COVID-19 before, for which she was hospitalized x2 weeks. - family brought in paxlovid prescription from pharmacy, 300/100mg BID x5 days (began 04/15) -Dexamethasone 10mg in ER x1, 6 mg x1 (04/15) - Original Chest XR on 04/14, per radiologist impression: No acute abnormalities and in particular no evidence of pneumonia. - Consider additional chest XR if symptoms worsen. Leukocytosis - WBC spiked from 19.50 to 26.66 today. Ordered procal and CRP for infectious/inflammatory markers. CRP and procal WNL. - Leukocytosis likely secondary to dexamethasone, which can elevate WBC and COVID-19 potentially contributing. Asthma - Controlled at home with albuterol inhaler and symbicort. - Receiving albuterol nebulizer q6h prn - Changed albuterol nebulizer q6h to scheduled. - Given dexamethasone 6 mg on 04/15 for wheezing, which improved her air movement. However, she felt this worsened her sickle cell pain. - Prescribed breo (fluticasone/vilanterol) at 200 mcg/25 mcg QD in replacement of home symbicort, which she takes at the higher dose. However, paxlovid has potential interaction with this medication. Since she is still wheezing with albuterol treatments, it is important that she has further management, so we prescribed a lower dose of 100 mcg/25 mcg QD. Anxiety - Continue home Sertraline 75 mg qhs (2) COVID-19 virus infection: (3) Anxiety: (4) Asthma: Plan Code:Full code Dispo:Remain inpatient FEN/GI:Regular diet, mIVF DVT Prophylaxis:SCDs Admission and Anticipated Discharge Date Admission Date: April 14, 2022 Supervising Attestation Patient seen and examined, chart reviewed, case discussed with Jaida Ford and Aubree Matos and I agree with the assessment and plan as above except as otherwise noted Labs and images reviewed Patient seen at bedside. She reports that she continues to have severe pain generally 78 which improves with her [employer], but she has to set a timer or she wakes up in a lot of pain overnight. She reports she wants to go home tomorrow or the day after, but has fairly poor insight to her pain requirements. Initially agreeable to trialing a decrease of her [employer] from 0.3 with 10-minute lockout to 0.25 with 15-minute lockout. Patient did not tolerate this well and was notified the patient had increased pain and needed the [employer] increased back. On exam she endorses pain, does appear somnolent while reporting that this is from sleeping poorly suspect she must be watched carefully for narcosis. Narcan is on order. [employer] decrease was reversed, for tomorrow would not change lockout any further and would focus solely on dose decreasing as she has a substantial psychological component to her pain, and the psychological component to timing changes will likely complicate managing her opioid needs appropriately. Ideally would have adequate pain control, decrease down to intermittent dosing and then discharged on a reasonable or similar analgesic dose and down titrated as outpatient with close follow-up.HemoGlobin remained stable around 10 Exam lungs have light inspiratory and expiratory wheezes in all 4 quadrants, which are improved but not resolved following DuoNeb's. Discussed asthma control with patient, and clarified home inhaler regimen. She reports she does take high-dose Symbicort at home which she has not been acting here and was concerned about the steroid component. Was switched to Breo, however this has a significant syph interaction with back Slo-Bid and there are some case reports of elevated steroid levels and [place] after prolonged use with back Slo-Bid. She also has increased steroid complications due to her sickle crisis; however she also has significant risk of worsening should her asthma be inadequately controlled and hypoxic. Systemic steroids deferred as previously noted and recommended against by her specialist provider. Reasonable to continue Breo conversion, but will dose decreased while on back Slo-Bid. Of note she is also at the end of the course, and most of these effects have been noticed after a prolonged use at the beginning of treatment Mikey Kimbrough is a 22 year old female with a PMH of sickle cell disease (most recently hospitalized in November) who presented to the emergency department 04/14 with chief concern of cough and generalized body pain for the day prior. She was in her usual state of health today when she abruptly began coughing. Prior to my evaluation: 04/14: Per ED note, patient used albuterol for this cough, which helped for a time before wearing off. However, she began to experience generalized pain, worst in her hips and lower back, so she decided to come in to be evaluated. She denied fever, chills, hemoptysis, pleuritic chest pain, wheeze, fatigue, nausea, vomiting, dysgeusia, dysuria, sick contacts at time of evaluation in ED. She is vaccinated ([employer]) but not boosted. 04/15: I evaluated the patient, who was resting in bed. While she began coughing yesterday and tested positive for COVID-19 upon presenting to the ED, reports her chief concern is her sickle cell pain crisis. Reports she feels similar to her usual sickle cell crises. Her main symptom is back pain. She was previously experiencing right hip pain, but this has improved. She still has a cough and is experiencing chest tightness/heaviness with associated SOB, which she feels is due to her respiratory symptoms. She feels like she is beginning to notice wheezing. Denies chest pain, arm pain, leg pain, rib pain, neck pain, lightheadedness, dizziness, numbness or tingling currently, abdominal pain, nausea, vomiting, diarrhea. 04/16: Evaluated by rest of inpatient team. Per hospitalist note, pt requested lidocaine patch for knee pain and an increase in her dilaudid overnight. The pain in her back and arm/leg intensified overnight. She believes that the steroid dose may have worsened her pain with this crisis because she explains that her pain is not usually this bad. Pt began a [employer] pump today 04/17: I evaluated the patient. Reports her pain has improved since yesterday, as she rates it as a 3/10 in severity. Reports yesterday was especially miserable pain-jefferson. The pain is chiefly concentrated in her back, but she is still having knee pain and arm pain as well. Reports she has been intermittently short of breath and felt wheezes intermittently as well, but she is still able to move air well and feels the albuterol nebulizer is helping. She requests for the nebulizer to be scheduled every 6 hours instead of prn, because she has not been taking it as regularly as she'd like. She also requested a lidocaine patch for her knee. Denies chest pain, rib pain, abdominal pain, nausea, vomiting, diarrhea. She has not had a bowel movement since being in the hospital. Physical Exam Constitutional: Resting in bed. Slightly ill-appearing but improved. In no acute distress. Neck: Normal ROM. Normal on visual inspection. Respiratory: Wheezes present in bilateral lung hurd. No rhonchi or rales. Cardiovascular: Regular rate and rhythm. No murmurs, rubs, or gallops. Skin: Warm and dry. No rashes or lesions. Neurologic: Alert and oriented to person, place, time, situation. Psychiatric: Appropriate mood and affect. Results & Data ([facility]) Vital Signs (Past 12 Hours) Vital Signs Temp Pulse Pulse Resp BP BP Pulse Ox 04/17/22 07:34 37.3 C 68 16 127/77 93 04/17/22 07:19 68 04/17/22 02:57 36.8 C 85 18 138/72 94 04/16/22 22:26 83 04/16/22 22:30 37.2 C 84 20 124/84 95 04/16/22 22:02 70 18 91 O2 Del Method 04/17/22 07:34 Room Air 04/17/22 07:19 04/17/22 02:57 Room Air 04/16/22 22:26 04/16/22 22:30 Room Air 04/16/22 22:02 Room Air Laboratory Results Laboratory Results - last 24 hr 04/17/22 04/17/22 06:36 06:36 WBC 26.66 H RBC 3.26 L Hgb 10.0 L Hct 27.4 L MCV 84.0 MCH 30.7 MCHC 36.5 H RDW Std Deviation 41.9 RDW Coeff of Kashif 14.2 Plt Count 356 MPV 10.0 Immature Gran % (Auto) 1.9 Neut % (Auto) 80.6 Lymph % (Auto) 6.6 Mclean % (Auto) 10.7 Eos % (Auto) 0.0 Baso % (Auto) 0.2 Reticulocyte % (Auto) 10.7 H Neut # (Auto) 21.49 H Lymph # (Auto) 1.76 Mclean # (Auto) 2.84 H Eos # (Auto) 0.00 Baso # (Auto) 0.06 Reticulocyte # 0.35 H Immature Gran # (Auto) 0.51 H Absolute Nucleated RBC 0.61 H Nucleated RBC % (auto) 2.3 Polychromasia 2+ Poikilocytosis Present Target Cells 2+ Stomatocytes 1+ Sodium 136 Potassium 4.3 Chloride 104 Carbon Dioxide 29 Anion Gap 3 BUN 14 Creatinine 0.63 Est Cr Clr Drug Dosing 137.4 Est GFR ( Amer) 148.6 Est GFR (Non-Af Amer) 128.2 BUN/Creatinine Ratio 22.2 H Glucose 105 H Calcium 8.9 Total Bilirubin 2.1 H AST 27 ALT 21 Alkaline Phosphatase 46 Total Protein 6.5 Albumin 4.1 Globulin 2.4 L Albumin/Globulin Ratio 1.7
[2022-04-17 08:05] LABS: Hematocrit (blood only) 27.4 % (34.1-44.9); Mean Corpuscular Hemoglobin 30.7 pg (25.0-34.0); Mean Corpuscular Hgb Conc 36.5 g/dL (32.0-36.0); Nucleated RBC # (auto) 0.61 K/uL (0-0); Nucleated RBC % (auto) 2.3 %; Platelet Count 356 K/uL (130-400); RDW Coefficient of Variation 14.2 % (11.5-14.5); RDW Standard Deviation 41.9 fL (36.4-46.3); Red Blood Count 3.26 M/uL (3.93-5.22); Reticulocyte % 10.7 % (0.5-2.0); Reticulocytes # 0.35 10^6/uL (0.02-0.10); White Blood Count 26.66 K/ul (4.8-10.8)
[2022-04-17 08:09] LABS: Basophils # (auto) 0.06 K/uL (0-0.2); Basophils % (auto) 0.2 %; Immature Granulocytes # (auto) 0.51 K/uL (0.00-0.02); Immature Granulocytes % (auto) 1.9 %; Lymphocytes # (auto) 1.76 K/uL (1.2-3.4); Lymphocytes % (auto) 6.6 %; Monocytes # (auto) 2.84 K/uL (0.24-0.82); Monocytes % (auto) 10.7 %; Neutrophils # (auto) 21.49 K/uL (1.4-6.5); Neutrophils % (auto) 80.6 %; Poikilocytosis Present; Polychromasia 2+; Stomatocytes 1+; Target Cells 2+
[2022-04-17] MEDS: POLYETHYLENE (MIRALAX) 17 GM PACK PO SCH (08:12)
[2022-04-17] MEDS: FOLIC ACID 1 MG TAB PO SCH (08:12)
[2022-04-17] MEDS: SENNA 8.6 MG TAB PO SCH (08:13)
[2022-04-17] MEDS: NIRMATRELVIR/RITONAVIR 1 EA TAB PO SCH ×2 (08:33→20:05)
[2022-04-17] MEDS: oxyCODONE HCL IR 5 MG TAB (IMMEDIATE RELEASE) PO PRN ×3 (12:05→23:41)
[2022-04-17] MEDS: LIDOCAINE 5% 1 PATCH TD SCH (12:32)
[2022-04-17] MEDS: ALBUTEROL 0.083% NEBU SOLN 3 ML VIAL NEB SCH ×2 (12:47→19:39)
[2022-04-17] MEDS ORDERED: HYDROmorphone INJ 0.5 MG/0.5 ML SYR IM PRN (14:36)
[2022-04-17] MEDS ORDERED: HYDROmorphone INJ 0.5 MG/0.5 ML SYR IV PRN (15:07)
[2022-04-17] MEDS: FLUTICASONE/VILANTEROL 100/25MCG 14 PUFFS/INHALER INH SCH (17:24)
[2022-04-17] MEDS: HYDROmorphone PCA 30 MG/30 ML IV PRN (17:33)
--- NOTE | 2022-04-17 18:19 | Billing Data ---
Date of Service April 17, 2022 Coding Level of Care Code 13485 Subseq Hosp Care Lvl 2
[2022-04-17] MEDS: SERTRALINE HCL 50 MG TABLET PO SCH (20:06)
[2022-04-17] MEDS ORDERED: ALBUTEROL 0.083% NEBU SOLN 3 ML VIAL NEB PRN (20:33)
[2022-04-17] MEDS ORDERED: BUDESONIDE/FORMOTEROL FUMARATE 160/4.5 60 PUFFS/INHALER INH SCH (21:00)
[2022-04-17] MEDS: ACETAMINOPHEN 500 MG TAB PO SCH (22:36)
[2022-04-18] MEDS ORDERED: HYDROmorphone INJ 1 MG/ML SYRINGE IM PRN (00:10)
[2022-04-18] MEDS: ALBUTEROL 0.083% NEBU SOLN 3 ML VIAL NEB SCH ×4 (01:36→19:45)
[2022-04-18] MEDS ORDERED: guaiFENesin 600 MG TABCR PO STA (02:22)
[2022-04-18] MEDS: ACETAMINOPHEN 500 MG TAB PO SCH ×4 (02:54→23:37)
[2022-04-18] MEDS: SODIUM CHLORIDE 0.45 % 1,000 ML IV SCH ×2 (05:14→09:33)
[2022-04-18 06:45] LABS: Hematocrit (blood only) 28.5 % (34.1-44.9); Hemoglobin 10.3 g/dl (12.0-16.0); Mean Corpuscular Hemoglobin 31.1 pg (25.0-34.0); Mean Corpuscular Hgb Conc 36.1 g/dL (32.0-36.0); Mean Corpuscular Volume 86.1 fL (80.0-100.0); Mean Platelet Volume 10.3 fL (9.4-12.3); Nucleated RBC # (auto) 1.32 K/uL (0-0); Nucleated RBC % (auto) 4.8 %; Platelet Count 352 K/uL (130-400); RDW Coefficient of Variation 14.6 % (11.5-14.5); RDW Standard Deviation 43.8 fL (36.4-46.3); Red Blood Count 3.31 M/uL (3.93-5.22); White Blood Count 27.43 K/ul (4.8-10.8)
[2022-04-18 07:05] LABS: Albumin Globulin Ratio 1.7 (0.9-2); Albumin Level 4.2 gm/dl (3.4-5.0); BUN Creatinine Ratio 13.8 (10-20); Bilirubin,Total 1.9 mg/dl (0.2-1.0); Creatinine Clr Calc Pharmacy 133.1 ml/min; Est GFR (African American) 147.1 ml/min; Est GFR (Non-African American) 126.9 ml/min; Globulin 2.5 gm/dl (2.5-4.0); Potassium 3.7 mmol/L (3.5-5.1); Total Protein 6.7 gm/dl (6.0-8.3)
[2022-04-18 07:14] LABS: Basophils # (auto) 0.07 K/uL (0-0.2); Basophils % (auto) 0.3 %; Eosinophils # (auto) 0.01 K/uL (0-0.50); Immature Granulocytes # (auto) 0.41 K/uL (0.00-0.02); Immature Granulocytes % (auto) 1.5 %; Lymphocytes # (auto) 2.75 K/uL (1.2-3.4); Monocytes # (auto) 3.12 K/uL (0.24-0.82); Monocytes % (auto) 11.4 %; Neutrophils # (auto) 21.07 K/uL (1.4-6.5); Neutrophils % (auto) 76.8 %; Polychromasia 2+; Reticulocyte % 10.7 % (0.5-2.0); Reticulocytes # 0.35 10^6/uL (0.02-0.10); Target Cells 2+
[2022-04-18] MEDS: SODIUM CHLOR 7% 4 ML NEB NEB SCH ×2 (07:17→19:45)
[2022-04-18] MEDS: oxyCODONE HCL IR 5 MG TAB (IMMEDIATE RELEASE) PO PRN ×3 (07:44→19:48)
--- NOTE | 2022-04-18 09:31 | Medical Student Progress Note ---
Date of Service April 18, 2022 Assessment & Plan (1) Sickle cell disease with crisis: Plan: Pt is a 22 yo female with PMH of sickle cell, anxiety, and asthma presenting on 04/14 with severe pain and COVID-19 pos symptomatic with a cough. Sickle Cell Crisis - Began experiencing recognizable pain (back pain, hip pain) for sickle cell crisis on 04/14/22 & presented to ED - Received IVF, Dilaudid, dexamethasone 10 mg in the ER - pain crisis likely secondary to COVID-19 infection - / NS 150 mL/hr for fluids, d/c on 04/18 d/t pulmonary - original pain control plan: - tylenol 650 mg q6hr scheduled - mild: toradol 15mg IV q4hr PRN - mod: oxycodone 5 mg PO q4hr PRN - severe: dilaudid 1 mg IV q2hr PRN - Increased her dilaudid dosage to 1mg IV q1hr PRN on 04/15 - Began patient on [employer] pump 0.3 mg q8 minutes PRN 04/16 with 1 mg HS PRN - pt wanted to go home so we attempted to decrease [employer] but pt stated she was in too much pain- [employer] then at 0.3mg q 10 minutes with no extra PRNs 04/17 Pt required 1 mg PRN dose overnight - 04/18, on reevaluation pt doing well with pain and agreeable to decrease dose- [employer] changed to 0.25 mg q10 minutes with 1 mg HS PRN - Patient is also receiving lidocaine patches for left knee and left shoulder. - Also tylenol 650 mg q6hr scheduled, oxycodone 5 mg PO q4hr PRN - Hgb 10.3 today but has been steadily fluctuating 10.0-11.4 throughout her stay. Bilirubin elevated at 2.1 but down from 3.3 yesterday Leukocytosis - secondary to steroid use vs. infectious process - WBC spiked from 19.50 to 26.66. Today 27.43. Ordered procal and CRP for infectious/inflammatory markers. CRP and procal WNL. - No renal or hepatic dysfunction, afebrile - Chest XR was ordered on admission (04/14), showed no acute abnormalities or infiltrates - CXR (04/18) showed interval development of bibasilar opacities (L>R) and small left and right pleural effusions, d/c IV fluids - chest CT showed bilateral opacities (L>R) that may reflect pneumonia, less likely atelectasis - began broad spectrum ABX- vanc 1.5g, cefepime 2g, and azithromycin 500 mg - main concern is for the development of ACS- [facility] does not have the ability for ketamine infusions or exchange transfusions - reached out to [facility] for transfer d/t this lack of available services here - the plan for transfer was discussed with patient and her mother on the phone, who were in agreement Multiple sickle cell crises in last year - Sounds like patient might not be currently taking a chronic medication, so consider outpatient hydroxyurea regimen. - Patient agreed to be seen by resident Dr. Wang as PCP while in [facility] for school. COVID-19 - Symptoms began 04/14 - Cough resolved yesterday 04/16 - Pt. qualifies for antiviral therapy, given history sickle cell disease. Pt. has had COVID-19 before, for which she was hospitalized x2 weeks. - family brought in paxlovid prescription from pharmacy, 300/100mg BID x5 days (began 04/15) -Dexamethasone 10mg in ER x1, 6 mg x1 (04/15) - Original chest XR on 04/14, per radiologist impression: No acute abnormalities and in particular no evidence of pneumonia - chest XR 04/18 showed infiltrates as above - concern for worsening condition led to transfer request as above Asthma - Controlled at home with albuterol inhaler and symbicort. - albuterol nebulizer q6h scheduled - Given dexamethasone 6 mg on 04/15 for wheezing, which improved her air movement. However, she felt this worsened her sickle cell pain. Discontinued steroids from this point - Prescribed breo (fluticasone/vilanterol) at 200 mcg/25 mcg QD in replacement of home symbicort. However, paxlovid has potential interaction with this medication. Since she is still wheezing with albuterol treatments, it is important that she has further management, so we prescribed a lower dose of 100 mcg/25 mcg daily. - RT recommended the addition of mucinex BID, hypertonic saline nebs, chest PT, and PRN albuterol nebs on top of scheduled q6hr Anxiety - Continue home Sertraline 75 mg qhs (2) COVID-19 virus infection: (3) Anxiety: (4) Asthma: Plan Code:Full code Dispo:Transfer to [facility] pending transfer process completion FEN/GI:Regular diet DVT Prophylaxis:SCDs Admission and Anticipated Discharge Date Admission Date: April 14, 2022 Supervising Attestation Patient seen and examined, chart reviewed, case discussed with Nereyda Ford, MS 2 and Roseline Wang, DO and I agree with the assessment and plan as above except as otherwise noted Labs and images reviewed Brooke was seen at the bedside this morning. Overall her pain has actually improved and is around a 3/10 while on the 0.3 every 10 [employer] dosing; however her leukocytosis has continued to uptrend disproportionate to her initial 2 doses of steroids with a left shift. Follow-up x-ray does show new infiltrates, which were initially with pulmonary edema in the differential as she has had this before. Subsequent CT noncontrast chest showed evidence concerning for bilateral pneumonia. This may represent superimposed pneumonia, COVID, or the potential for chest syndrome development. Case was reviewed extensively with sickle cell specialty clinic at [place], large cohort publication is coming out that steroid use does increase the risk of chest syndrome, and while this this data is not out or an up-to-date yet is reliable and likely practice changing per that discussion. Given that patient has COVID with developing infiltrates in the treatment could involve risk/benefit discussion of steroids, has new infiltrates which technically qualify her for developing chest syndrome, and also has asthma which is on a ICS as an outpatient but in combination of Paxlovid can increase systemic steroid load patient should be seen at tertiary care where they have the resources to appropriately treat and perform exchange transfusion for chest syndrome should it develop, and to monitor for such if he decompensates from a pneumonia/COVID standpoint. In addition while patient's pain has been improving today, she has had great difficulty controlling her pain with a [employer] level that did not cause some level of sedation/narcosis and should her pain worsen she may benefit from a ketamine protocol. Case was discussed with [facility] who facilitated acceptance for transfer. Patient is pending transport. On exam her lungs are grossly clear without wheezes/crackles, heart rate is regular, skin is warm and dry. Mikey Kimbrough is a 22 year old female with a PMH of sickle cell disease (most recently hospitalized in November) who presented to the emergency department 04/14 with chief concern of cough and generalized body pain for the day prior. She was in her usual state of health today when she abruptly began coughing. Prior to my evaluation: 04/14: Per ED note, patient used albuterol for this cough, which helped for a time before wearing off. However, she began to experience generalized pain, worst in her hips and lower back, so she decided to come in to be evaluated. She denied fever, chills, hemoptysis, pleuritic chest pain, wheeze, fatigue, nausea, vomiting, dysgeusia, dysuria, sick contacts at time of evaluation in ED. She is vaccinated ([employer]) but not boosted. 04/15: I evaluated the patient, who was resting in bed. While she began coughing yesterday and tested positive for COVID-19 upon presenting to the ED, reports her chief concern is her sickle cell pain crisis. Reports she feels similar to her usual sickle cell crises. Her main symptom is back pain. She was previously experiencing right hip pain, but this has improved. She still has a cough and is experiencing chest tightness/heaviness with associated SOB, which she feels is due to her respiratory symptoms. She feels like she is beginning to notice wheezing. Denies chest pain, arm pain, leg pain, rib pain, neck pain, lightheadedness, dizziness, numbness or tingling currently, abdominal pain, nausea, vomiting, diarrhea. 04/16: Evaluated by rest of inpatient team. Per hospitalist note, pt requested lidocaine patch for knee pain and an increase in her dilaudid overnight. The pain in her back and arm/leg intensified overnight. She believes that the steroid dose may have worsened her pain with this crisis because she explains that her pain is not usually this bad. Pt began a [employer] pump today 04/17: I evaluated the patient. Reports her pain has improved since yesterday, as she rates it as a 3/10 in severity. Reports yesterday was especially miserable pain-jefferson. The pain is chiefly concentrated in her back, but she is still having knee pain and arm pain as well. Reports she has been intermittently short of breath and felt wheezes intermittently as well, but she is still able to move air well and feels the albuterol nebulizer is helping. She requests for the nebulizer to be scheduled every 6 hours instead of prn, because she has not been taking it as regularly as she'd like. She also requested a lidocaine patch for her knee. Denies chest pain, rib pain, abdominal pain, nausea, vomiting, diarrhea. She has not had a bowel movement since being in the hospital. 04/18: I evaluated the patient. She reports her pain has improved and she would like to decrease her dosage of medication and transition toward oral medications so she can go home. She rates her pain as a 7/10 in severity, but states she is not having to utilize the [employer] as frequently as prescribed. Her pain is localized in the left side of her body, chiefly her left arm and leg. She was able to sleep much more last night than past nights, as she didn't wake up as frequently with pain. Reports she has received great relief from the heating pad. She requests a heating pad and PT for her knee. COVID-jefferson, she feels like she is doing well. States she has been using her albuterol nebulizer and breo inhaler. Denies abdominal pain, nausea, vomiting, diarrhea, SOB or difficulty breathing, wheezing, chest pain, rib pain, back pain. Physical Exam Constitutional: Not in acute distress. Still mildly decreased alertness but easily aroused by talking/discussing. Resting in bed. Eyes: No conjunctival drainage or abnormality. No scleral icterus. ENMT: Oral mucosa pink and moist. Trachea midline. Neck: Normal on visual inspection. Full ROM. Respiratory: Trace crackles in bilateral bases. No rhonchi or wheezes. Cardiovascular: Regular rate and rhythm. No murmurs, rubs, gallops. No LE edema. Gastrointestinal (Abdomen): Nontender, nondistended. No masses palpated. Skin: Warm and dry. No rashes or lesions. Neurologic: Alert and oriented to person, place, time, situation. Psychiatric: Appropriate mood and affect. Results & Data ([facility]) Vital Signs (Past 12 Hours) Vital Signs Temp Pulse Pulse Resp BP Pulse Ox O2 Del Method 04/18/22 08:00 87 04/18/22 07:59 37 C 86 16 139/91 100 Room Air 04/18/22 07:48 Room Air 04/18/22 07:22 79 18 99 Room Air 04/18/22 04:00 36.5 C 103 H 20 127/93 92 Room Air 04/17/22 22:09 77 04/18/22 01:40 77 18 97 Room Air 04/17/22 22:00 36.3 C L 87 20 147/92 H 97 Room Air 04/17/22 23:12 79 16 96 Room Air Laboratory Results Laboratory Results - last 24 hr 04/18/22 04/18/22 04/18/22 05:42 05:42 14:00 WBC 27.43 H RBC 3.31 L Hgb 10.3 L Hct 28.5 L MCV 86.1 MCH 31.1 MCHC 36.1 H RDW Std Deviation 43.8 RDW Coeff of Kashif 14.6 H Plt Count 352 MPV 10.3 Immature Gran % (Auto) 1.5 Neut % (Auto) 76.8 Lymph % (Auto) 10.0 [place] % (Auto) 11.4 Eos % (Auto) 0.0 Baso % (Auto) 0.3 Reticulocyte % (Auto) 10.7 H Neut # (Auto) 21.07 H Lymph # (Auto) 2.75 [place] # (Auto) 3.12 H Eos # (Auto) 0.01 Baso # (Auto) 0.07 Reticulocyte # 0.35 H Immature Gran # (Auto) 0.41 H Absolute Nucleated RBC 1.32 H Nucleated RBC % (auto) 4.8 Polychromasia 2+ Target Cells 2+ Sodium 137 Potassium 3.7 Chloride 103 Carbon Dioxide 27 Anion Gap 7 BUN 9 Creatinine 0.65 Est Cr Clr Drug Dosing 133.1 Est GFR ( Amer) 147.1 Est GFR (Non-Af Amer) 126.9 BUN/Creatinine Ratio 13.8 Glucose 93 Calcium 9.0 Total Bilirubin 1.9 H AST 21 ALT 17 Alkaline Phosphatase 51 Total Protein 6.7 Albumin 4.2 Globulin 2.5 Albumin/Globulin Ratio 1.7 Nasal Screen MRSA (PCR) Negative Diagnostic Findings Chest X-Ray 04/18/22 09:43 XR chest 1V portable CLINICAL HISTORY: Sickle Cell Disease + COVID COMPARISON STUDY: Chest radiograph April 14, 2022. FINDINGS: Lung volumes are mildly diminished. No pneumothorax. There is a suspected small left pleural effusion. There may be a trace right pleural effusion. Left bibasilar opacities, greater on the left, have developed since prior exam. Prominence of the cardiac silhouette is likely technical. IMPRESSION: 1. Interval development of bibasilar opacities, greater on the left. The findings could reflect pneumonia or atelectasis on this hypoventilatory study. However, acute chest syndrome given history of sickle cell disease could appear similar. 2. Suspected small left and trace right pleural effusions. ACT 112: Negative or not required by law. Electronically signed by: Jono Quintero M.D. 04/18/2022 10:[address] 04/18/22 10:57 CT OF THE CHEST WITHOUT IV CONTRAST CLINICAL HISTORY: Bibasilar opacities. Sickle cell. COMPARISON STUDY: Chest radiographs April 14, 2022 and April 18, 2022. CT DOSE: 169.92 mGy.cm TECHNIQUE: Axial images of the chest were obtained without IV contrast. Images were reviewed in the axial, sagittal, and coronal planes. IV contrast was not administered for this examination. Automated exposure control was utilized for the study. A dose lowering technique was utilized adhering to the principles of ALARA. FINDINGS: No enlarged axillary, mediastinal or hilar lymph nodes are present. The size of the heart is normal. There is slight decreased attenuation of the cardiac blood pool. Small left and trace right pleural effusions are noted. There are mild bilateral lower lobe airspace opacities, greater on the left. There is no cavitation. Central airways are patent. There is no pneumothorax. No acute fracture or suspicious lesion within the bony thorax is noted. Visualized portions of the upper abdomen are unremarkable. IMPRESSION: Small left and trace right pleural effusions. Mild bilateral lower lobe airspace opacities, greater within the left lower lobe. These opacities are nonspecific and may reflect pneumonia or less likely atelectasis. Although less likely, acute chest syndrome could appear similar given history of sickle cell disease. ACT 112: Negative or not required by law. Electronically signed by: Jono Quintero M.D. 04/18/2022 12:22 PM
[2022-04-18] MEDS: POLYETHYLENE (MIRALAX) 17 GM PACK PO SCH (09:35)
[2022-04-18] MEDS: LIDOCAINE 5% 1 PATCH TD SCH ×2 (09:37)
[2022-04-18] MEDS: FOLIC ACID 1 MG TAB PO SCH (09:38)
[2022-04-18] MEDS: SENNA 8.6 MG TAB PO SCH (09:38)
[2022-04-18] MEDS: FLUTICASONE/VILANTEROL 100/25MCG 14 PUFFS/INHALER INH SCH (09:39)
[2022-04-18] MEDS: NIRMATRELVIR/RITONAVIR 1 EA TAB PO SCH ×2 (09:40→21:07)
--- NOTE | 2022-04-18 10:19 | XRay Report ---
XR chest 1V portable CLINICAL HISTORY: Sickle Cell Disease + COVID COMPARISON STUDY: Chest radiograph April 14, 2022. FINDINGS: Lung volumes are mildly diminished. No pneumothorax. There is a suspected small left pleura l effusion. There may be a trace right pleural effusion. Left bibasilar opacities, greater on the lef t, have developed since prior exam. Prominence of the cardiac silhouette is likely technical. IMPRESSION: 1. Interval development of bibasilar opacities, greater on the left. The findings could reflect pneum onia or atelectasis on this hypoventilatory study. However, acute chest syndrome given history of sic kle cell disease could appear similar. 2. Suspected small left and trace right pleural effusions. ACT 112: Negative or not required by law. Electronically signed by: Jono Quintero M.D. 04/18/2022 10:18 AM
[2022-04-18] MEDS ORDERED: VANCOMYCIN HCL 1,250 MG in SODIUM CHLORIDE 0.9% 500 ML IV ONE (10:31)
[2022-04-18] MEDS ORDERED: VANCOMYCIN CONSULT ACTIVE PRN (10:31)
[2022-04-18] MEDS ORDERED: VANCOMYCIN HCL 1,500 MG in SODIUM CHLORIDE 0.9% 500 ML IV ONE (11:00)
[2022-04-18] MEDS: AZITHROMYCIN 500 MG in DEXTROSE 5% 250 ML IV SCH (11:24)
[2022-04-18] MEDS: CEFEPIME 2,000 MG in SYRINGE 0 ML IV SCH ×2 (11:24→18:01)
[2022-04-18] MEDS: ONDANSETRON 4 MG OD TAB PO PRN (11:50)
--- NOTE | 2022-04-18 12:25 | CT Scan Report ---
CT OF THE CHEST WITHOUT IV CONTRAST CLINICAL HISTORY: Bibasilar opacities. Sickle cell. COMPARISON STUDY: Chest radiographs April 14, 2022 and April 18, 2022. CT DOSE: 169.92 mGy.cm TECHNIQUE: Axial images of the chest were obtained without IV contrast. Images were reviewed in the axial, sagittal, and coronal planes. IV contrast was not administered for this examination. Automat ed exposure control was utilized for the study. A dose lowering technique was utilized adhering to t he principles of ALARA. FINDINGS: No enlarged axillary, mediastinal or hilar lymph nodes are present. The size of the heart is normal. There is slight decreased attenuation of the cardiac blood pool. Small left and trace righ t pleural effusions are noted. There are mild bilateral lower lobe airspace opacities, greater on the left. There is no cavitation. Central airways are patent. There is no pneumothorax. No acute fractur e or suspicious lesion within the bony thorax is noted. Visualized portions of the upper abdomen are unremarkable. IMPRESSION: Small left and trace right pleural effusions. Mild bilateral lower lobe airspace opacities, greater w ithin the left lower lobe. These opacities are nonspecific and may reflect pneumonia or less likely a telectasis. Although less likely, acute chest syndrome could appear similar given history of sickle c ell disease. ACT 112: Negative or not required by law. Electronically signed by: Jono Quintero M.D. 04/18/2022 12:22 PM
--- NOTE | 2022-04-18 13:50 | Pharmacy Report ---
Pharmacy Vanc AUC Short Note - Date of Service April 18, 2022 - Assessment & Plan Assessment 22 year old started on broad spectrum antibiotics with vancomycin, cefepime and azithromycin. Concerns for developing pneumonia on chest xray. Patient also with COVID infection, ordered continuation of Paxlovid from home. Patient with hx of sickel cell disease, most recently hospitalized in November presenting with cough/generalized body pain on admission. Per notes, provider discussing case with [facility] specialist. Vancomycin * AUC/VIN is the preferred PK/PD target for vancomycin * AUC guided dosing is effective and associated with decreased risk of nephrotoxicity compared to traditional trough targets * Loading dose of vancomycin 1500 mg x 1 given (~23 mg/kg/dose), will start maintenance dose of vancomycin 1000 mg iv q 8 hrs * This dosing is estimated to achieve a trough level of ~18 mcg/ml and target AUC/VIN of 400-600 mg/L.hr and may be associated with a 15 % risk of nephrotoxicity * Plan to order a level if continued >48 hrs Pharmacy will continue to follow and will adjust dose/frequency as necessary. Thank you.
--- NOTE | 2022-04-18 16:58 | Discharge Summary ---
Date of Service April 18, 2022 Admission HPI Per Admitting Provider Kaylan is a 22 year old woman with a history of sickle cell disease (most recently hospitalized in November) who presents today with cough and generalized body pain x1 day. She was in her usual state of health today when she abruptly began coughing. She used albuterol, which helped for a time before wearing off. However, she began to experience generalized pain, worst in her hips and lower back, so she decided to come in to be evaluated. She denies fever, chills, hemoptysis, pleuritic chest pain, wheeze, fatigue, nausea, vomiting, dysgeusia, or dysuria. She denies sick contacts. She is vaccinated (NephroPlus) but not boosted. ER course was notable for a positive COVID-19 test. CXR showed bibasilar opacities (no acute infectious process on radiology report). She received a 1L normal saline bolus and started on maintenance fluids. She also received Dilaudid for pain management. Admission Exam Per Admitting Provider General: Slightly ill-appearing, but otherwise alert, interactive, and in no acute distress. HEENT: Normocephalic, atraumatic. EOM intact. Good conjugate gaze. Nares patent. Moist mucosal membranes. Neck: Supple. No lymphadenopathy. Normal ROM. CV: Regular rate and rhythm. Normal S1 and S2. No murmurs gallops or rubs. Respiratory: Normal respiratory effort. Lungs clear to auscultation bilaterally. No crackles, rhonchi, or wheezes. Abdomen: Soft, nondistended abdomen. No bruits heard on auscultation. No tenderness to deep palpation. No guarding or rebound. Extremities: Capillary refill <2 sec. 2+ dp equal bilaterally. No pedal edema. Neuro: Alert and oriented x3. Skin: Clean, dry, and intact. No rashes, bruises, or erythema. Principal Diagnosis sickle cell vaso occlusive crisis multifocal pneumonia COVID-19 Discharge Exam Constitutional Mild distress. Vitals WNL. Respiratory Mild crackles in lung bases. Non labored breathing. Cardiovascular RRR. No murmur noted. Discharge Data Allergies Allergy/AdvReac Type Severity Reaction Status Date / Time peanut Allergy Intermediate ITCHY HIVES Verified 04/14/22 19:29 Ordered Studies 04/18/22 10:57 CT chest diagnostic wo con Stat Chest X-Ray 04/14/22 17:18 XR chest 1V portable CLINICAL HISTORY: weakness TECHNIQUE: Single frontal radiograph of the chest was obtained. Comparison: Comparison is made to chest radiograph 12/13/2021 FINDINGS: No lines and tubes are seen. The cardiomediastinal silhouette is normal. The lungs are clear. Increased prominence of the left lower lobe is likely due to positioning. No evidence of pleural effusion or pneumothorax. IMPRESSION: No acute abnormalities and in particular no evidence of pneumonia. ACT 112: Negative or not required by law. Electronically signed by: Erik Estes M.D. 04/14/2022 6:26 PM Chest X-Ray 04/18/22 09:43 XR chest 1V portable CLINICAL HISTORY: Sickle Cell Disease + COVID COMPARISON STUDY: Chest radiograph April 14, 2022. FINDINGS: Lung volumes are mildly diminished. No pneumothorax. There is a suspected small left pleural effusion. There may be a trace right pleural effusion. Left bibasilar opacities, greater on the left, have developed since prior exam. Prominence of the cardiac silhouette is likely technical. IMPRESSION: 1. Interval development of bibasilar opacities, greater on the left. The findings could reflect pneumonia or atelectasis on this hypoventilatory study. However, acute chest syndrome given history of sickle cell disease could appear similar. 2. Suspected small left and trace right pleural effusions. ACT 112: Negative or not required by law. Electronically signed by: Jono Quintero M.D. 04/18/2022 10:[address] 04/18/22 10:57 CT OF THE CHEST WITHOUT IV CONTRAST CLINICAL HISTORY: Bibasilar opacities. Sickle cell. COMPARISON STUDY: Chest radiographs April 14, 2022 and April 18, 2022. CT DOSE: 169.92 mGy.cm TECHNIQUE: Axial images of the chest were obtained without IV contrast. Images were reviewed in the axial, sagittal, and coronal planes. IV contrast was not administered for this examination. Automated exposure control was utilized for the study. A dose lowering technique was utilized adhering to the principles of ALARA. FINDINGS: No enlarged axillary, mediastinal or hilar lymph nodes are present. The size of the heart is normal. There is slight decreased attenuation of the cardiac blood pool. Small left and trace right pleural effusions are noted. There are mild bilateral lower lobe airspace opacities, greater on the left. There is no cavitation. Central airways are patent. There is no pneumothorax. No acute fracture or suspicious lesion within the bony thorax is noted. Visualized portions of the upper abdomen are unremarkable. IMPRESSION: Small left and trace right pleural effusions. Mild bilateral lower lobe airspace opacities, greater within the left lower lobe. These opacities are nonspecific a nd may reflect pneumonia or less likely atelectasis. Although less likely, acute chest syndrome could appear similar given history of sickle cell disease. ACT 112: Negative or not required by law. Electronically signed by: Jono Quintero M.D. 04/18/2022 12:22 PM Hospital Course (1) Sickle cell disease with crisis: Pt is a 22 yo female with PMH of sickle cell, anxiety, and asthma presenting on 04/14 with severe pain and COVID-19 pos symptomatic with a cough. Sickle Cell Crisis - Began experiencing recognizable pain (back pain, hip pain) for sickle cell crisis on 04/14/22 & presented to ED - Received IVF, Dilaudid, dexamethasone 10 mg in the ER - pain crisis likely secondary to COVID-19 infection - 08/18 NS 150 mL/hr for fluids, d/c on 04/18 d/t pulmonary - original pain control plan: - tylenol 650 mg q6hr scheduled - mild: toradol 15mg IV q4hr PRN - mod: oxycodone 5 mg PO q4hr PRN - severe: dilaudid 1 mg IV q2hr PRN - Increased her dilaudid dosage to 1mg IV q1hr PRN on 04/15 - Began patient on WIRE LATHER pump 0.3 mg q8 minutes PRN 04/16 with 1 mg HS PRN - pt wanted to go home so we attempted to decrease WIRE LATHER but pt stated she was in too much pain- WIRE LATHER then at 0.3mg q 10 minutes with no extra PRNs 04/17 Pt required 1 mg PRN dose overnight - 04/18, on reevaluation pt doing well with pain and agreeable to decrease dose- WIRE LATHER changed to 0.25 mg q10 minutes with 1 mg HS PRN - Patient is also receiving lidocaine patches for left knee and left shoulder. - Also tylenol 650 mg q6hr scheduled, oxycodone 5 mg PO q4hr PRN - Hgb 10.3 today but has been steadily fluctuating 10.0-11.4 throughout her stay. Bilirubin elevated at 2.1 but down from 3.3 yesterday Leukocytosis - secondary to steroid use vs. infectious process - WBC spiked from 19.50 to 26.66. Today 27.43. Ordered procal and CRP for infectious/inflammatory markers. CRP and procal WNL. - No renal or hepatic dysfunction, afebrile - Chest XR was ordered on admission (04/14), showed no acute abnormalities or infiltrates - CXR (04/18) showed interval development of bibasilar opacities (L>R) and small left and right pleural effusions - chest CT showed bilateral opacities (L>R) that may reflect pneumonia, less likely atelectasis - began broad spectrum ABX- vanc 1.5g, cefepime 2g, and azithromycin 500 mg - main concern is for the development of ACS- [facility] does not have the ability for ketamine infusions or exchange transfusions - reached out to [facility] for transfer d/t this lack of available services here - the plan for transfer was discussed with patient and her mother on the phone, who were in agreement Multiple sickle cell crises in last year - Sounds like patient might not be currently taking a chronic medication, so consider outpatient hydroxyurea regimen. - Patient agreed to be seen by resident Dr. Wang as PCP while in [facility] for school. COVID-19 - Symptoms began 04/14 - Cough resolved yesterday 04/16 - Pt. qualifies for antiviral therapy, given history sickle cell disease. Pt. has had COVID-19 before, for which she was hospitalized x2 weeks. - family brought in paxlovid prescription from pharmacy, 300/100mg BID x5 days (began 04/15) -Dexamethasone 10mg in ER x1, 6 mg x1 (04/15) - Original Chest XR on 04/14, per radiologist impression: No acute abnormalities and in particular no evidence of pneumonia - chest XR 04/18 showed infiltrates as above - concern for worsening condition led to transfer request as above Asthma - Controlled at home with albuterol inhaler and symbicort. - albuterol nebulizer q6h scheduled - Given dexamethasone 6 mg on 04/15 for wheezing, which improved her air movement. However, she felt this worsened her sickle cell pain. Discontinued steroids from this point - Prescribed breo (fluticasone/vilanterol) at 200 mcg/25 mcg QD in replacement of home symbicort. However, paxlovid has potential interaction with this medication. Since she is still wheezing with albuterol treatments, it is important that she has further management, so we prescribed a lower dose of 100 mcg/25 mcg daily. - RT recommended the addition of mucinex BID, hypertonic saline nebs, chest PT, and PRN albuterol nebs on top of scheduled q6hr Anxiety - Continue home Sertraline 75 mg qhs (2) COVID-19 virus infection: (3) Anxiety: (4) Asthma: Plan DVT ppx: SCDs Diet: regular Code: full Dispo: [facility] Total Time Total Time Spent Total Time Spent (In Minutes): As per attending attestation Discharge Plan Discharge Items Patient Disposition: Transfer Acute Care Hospital Reason For Visit: COUGH, SICKLE CELL PAIN CRISIS Discharge Diagnosis: sickle cell vaso occlusive pain crisis multifocal pneumonia COVID-19 Activity: Per Instructions section Non-emergency contact: Primary Care Provider and Oncologist Call non-emergency contact if: you have any medication questions, your symptoms worsen and you have a fever Follow-up/Referrals: [facility] [Primary Care Provider] - Diet: Regular Addtl Attending Provider Instructions: Pt is a 22 yo female with PMH of sickle cell, anxiety, and asthma presenting on 04/14 with severe pain and COVID-19 pos symptomatic with a cough. Sickle Cell Crisis - Began experiencing recognizable pain (back pain, hip pain) for sickle cell crisis on 04/14/22 & presented to ED - Received IVF, Dilaudid, dexamethasone 10 mg in the ER - pain crisis likely secondary to COVID-19 infection - 1/2 NS 150 mL/hr for fluids, d/c on 04/18 d/t pulmonary - original pain control plan: - tylenol 650 mg q6hr scheduled - mild: toradol 15mg IV q4hr PRN - mod: oxycodone 5 mg PO q4hr PRN - severe: dilaudid 1 mg IV q2hr PRN - Increased her dilaudid dosage to 1mg IV q1hr PRN on 04/15 - Began patient on WIRE LATHER pump 0.3 mg q8 minutes PRN 04/16 with 1 mg HS PRN - pt wanted to go home so we attempted to decrease WIRE LATHER but pt stated she was in too much pain- WIRE LATHER then at 0.3mg q 10 minutes with no extra PRNs 04/17 Pt required 1 mg PRN dose overnight - 04/18, on reevaluation pt doing well with pain and agreeable to decrease dose- WIRE LATHER changed to 0.25 mg q10 minutes with 1 mg HS PRN - Patient is also receiving lidocaine patches for left knee and left shoulder. - Also tylenol 650 mg q6hr scheduled, oxycodone 5 mg PO q4hr PRN - Hgb 10.3 today but has been steadily fluctuating 10.0-11.4 throughout her stay. Bilirubin elevated at 2.1 but down from 3.3 yesterday Leukocytosis - secondary to steroid use vs. infectious process - WBC spiked from 19.50 to 26.66. Today 27.43. Ordered procal and CRP for infectious/inflammatory markers. CRP and procal WNL. - No renal or hepatic dysfunction, afebrile - Chest XR was ordered on admission (04/14), showed no acute abnormalities or infiltrates - CXR (04/18) showed interval development of bibasilar opacities (L>R) and small left and right pleural effusions - chest CT showed bilateral opacities (L>R) that may reflect pneumonia, less likely atelectasis - began broad spectrum ABX- vanc 1.5g, cefepime 2g, and azithromycin 500 mg - main concern is for the development of ACS- [facility] does not have the ability for ketamine infusions or exchange transfusions - reached out to [facility] for transfer d/t this lack of available services here - the plan for transfer was discussed with patient and her mother on the phone, who were in agreement Multiple sickle cell crises in last year - Sounds like patient might not be currently taking a chronic medication, so consider outpatient hydroxyurea regimen. - Patient agreed to be seen by resident Dr. Wang as PCP while in [facility] for school. COVID-19 - Symptoms began 04/14 - Cough resolved yesterday 04/16 - Pt. qualifies for antiviral therapy, given history sickle cell disease. Pt. has had COVID-19 before, for which she was hospitalized x2 weeks. - family brought in paxlovid prescription from pharmacy, 300/100mg BID x5 days (began 04/15) -Dexamethasone 10mg in ER x1, 6 mg x1 (04/15) - Original chest XR on 04/14, per radiologist impression: No acute abnormalities and in particular no evidence of pneumonia - chest XR 04/18 showed infiltrates as above - concern for worsening condition led to transfer request as above Asthma - Controlled at home with albuterol inhaler and symbicort. - albuterol nebulizer q6h scheduled - Given dexamethasone 6 mg on 04/15 for wheezing, which improved her air movement. However, she felt this worsened her sickle cell pain. Discontinued steroids from this point - Prescribed breo (fluticasone/vilanterol) at 200 mcg/25 mcg QD in replacement of home symbicort. However, paxlovid has potential interaction with this medication. Since she is still wheezing with albuterol treatments, it is important that she has further management, so we prescribed a lower dose of 100 mcg/25 mcg daily. - RT recommended the addition of mucinex BID, hypertonic saline nebs, chest PT, and PRN albuterol nebs on top of scheduled q6hr Anxiety - Continue home Sertraline 75 mg qhs Pending Studies at Discharge: No Stand-Alone Forms: My [facility] Skilled Items Patient informed of condition?: Yes DNR: No Discharge Level of Care: Other Communicable Disease: Yes Discharge Prognosis: Deteriorating Lines: Peripheral IV Urinary Catheter: No Medications and DC Order Prescriptions: New Paxlovid (EUA) 300 mg (150 mg x 2)-100 mg tablets,dose pack See Rx Instructions .ROUTE .COMPLEX Qty: 30 0RF Rx Instructions: take TWO 150 mg tablets of nirmatrelvir with ONE 100 mg tablet of ritonavir twice daily for 5 days Continued cetirizine 10 mg tablet 10 mg PO HS ergocalciferol (vitamin D2) 1,250 mcg (50,000 unit) capsule 50,000 unit PO WK Rx Instructions: TAKES ON SATURDAYS sertraline 25 mg tablet 75 mg PO HS folic acid 1 mg tablet 1 mg PO DAILY acetaminophen 325 mg tablet 650 mg PO DIRECTED PRN (Reason: Pain) ondansetron 4 mg tablet,disintegrating 4 - 8 mg PO Q8H PRN (Reason: nausea and vomiting) Qty: 14 0RF Admission Data Admit Date/Time: 04/14/22 20:53 Attending Provider: Andrew Wright Admit Provider: Azucena Rand Primary Care Provider: [facility] Other Providers: Steven Rodgers
[2022-04-18] MEDS: HYDROmorphone PCA 30 MG/30 ML IV PRN (18:06)
[2022-04-18] MEDS: VANCOMYCIN HCL 1,000 MG in SODIUM CHLORIDE 0.9% 250 ML IV SCH (19:48)
[2022-04-18] MEDS: SERTRALINE HCL 50 MG TABLET PO SCH (21:05)
[2022-04-18] MEDS: guaiFENesin 600 MG TABCR PO SCH (21:06)
[2022-04-18] MEDS ORDERED: HYDROmorphone INJ 1 MG/ML SYRINGE IV PRN (21:41)
[2022-04-19] MEDS: ALBUTEROL 0.083% NEBU SOLN 3 ML VIAL NEB SCH ×4 (00:17→19:08)
[2022-04-19] MEDS: oxyCODONE HCL IR 5 MG TAB (IMMEDIATE RELEASE) PO PRN ×2 (03:37→07:40)
[2022-04-19] MEDS: CEFEPIME 2,000 MG in SYRINGE 0 ML IV SCH ×3 (03:38→18:09)
[2022-04-19] MEDS: VANCOMYCIN HCL 1,000 MG in SODIUM CHLORIDE 0.9% 250 ML IV SCH ×3 (03:38→19:36)
[2022-04-19] MEDS: ACETAMINOPHEN 500 MG TAB PO SCH ×3 (06:29→20:51)
[2022-04-19 06:47] LABS: Albumin Globulin Ratio 1.7 (0.9-2); Albumin Level 3.8 gm/dl (3.4-5.0); BUN Creatinine Ratio 16.4 (10-20); Bilirubin,Total 1.5 mg/dl (0.2-1.0); Calcium 8.9 mg/dl (8.5-10.1); Creatinine Clr Calc Pharmacy 129.2 ml/min; Est GFR (African American) 145.6 ml/min; Est GFR (Non-African American) 125.7 ml/min; Globulin 2.3 gm/dl (2.5-4.0); Potassium 3.7 mmol/L (3.5-5.1); Total Protein 6.1 gm/dl (6.0-8.3)
[2022-04-19 06:56] LABS: Hemoglobin 9.7 g/dl (12.0-16.0); Mean Corpuscular Hemoglobin 31.1 pg (25.0-34.0); Mean Corpuscular Hgb Conc 35.9 g/dL (32.0-36.0); Mean Corpuscular Volume 86.5 fL (80.0-100.0); Mean Platelet Volume 9.7 fL (9.4-12.3); Nucleated RBC # (auto) 1.19 K/uL (0-0); Nucleated RBC % (auto) 5.4 %; Platelet Count 349 K/uL (130-400); RDW Coefficient of Variation 14.8 % (11.5-14.5); RDW Standard Deviation 43.6 fL (36.4-46.3); Red Blood Count 3.12 M/uL (3.93-5.22); White Blood Count 21.85 K/ul (4.8-10.8)
[2022-04-19 06:58] LABS: Basophils # (auto) 0.06 K/uL (0-0.2); Basophils % (auto) 0.3 %; Eosinophils # (auto) 0.04 K/uL (0-0.50); Eosinophils % (auto) 0.2 %; Immature Granulocytes # (auto) 0.19 K/uL (0.00-0.02); Immature Granulocytes % (auto) 0.9 %; Lymphocytes # (auto) 2.56 K/uL (1.2-3.4); Lymphocytes % (auto) 11.7 %; Monocytes # (auto) 2.61 K/uL (0.24-0.82); Monocytes % (auto) 11.9 %; Neutrophils # (auto) 16.39 K/uL (1.4-6.5); Poikilocytosis Present; Polychromasia 2+; Reticulocyte % 11.2 % (0.5-2.0); Reticulocytes # 0.35 10^6/uL (0.02-0.10); Schistocytes 1+; Stomatocytes 1+; Target Cells 3+
[2022-04-19] MEDS: SODIUM CHLOR 7% 4 ML NEB NEB SCH ×2 (07:15→19:08)
[2022-04-19] MEDS: HYDROmorphone PCA 30 MG/30 ML IV PRN ×3 (08:09→23:40)
[2022-04-19] MEDS: NIRMATRELVIR/RITONAVIR 1 EA TAB PO SCH ×2 (09:04→20:51)
[2022-04-19] MEDS: POLYETHYLENE (MIRALAX) 17 GM PACK PO SCH (09:05)
[2022-04-19] MEDS: guaiFENesin 600 MG TABCR PO SCH ×2 (09:05→19:36)
[2022-04-19] MEDS: LIDOCAINE 5% 1 PATCH TD SCH ×2 (09:06)
[2022-04-19] MEDS: FOLIC ACID 1 MG TAB PO SCH (09:06)
[2022-04-19] MEDS: SENNA 8.6 MG TAB PO SCH (09:06)
[2022-04-19] MEDS: AZITHROMYCIN 500 MG in DEXTROSE 5% 250 ML IV SCH (10:11)
--- NOTE | 2022-04-19 12:32 | Hospitalist Progress Note ---
Date of Service April 19, 2022 Assessment & Plan (1) Sickle cell disease with crisis: Plan: Kaylan is a 22 year old female with history of sickle cell disease (most recently hospitalized in November) who presented to the emergency department 04/14 with chief concern of cough and generalized body pain. Patient was admitted for suspected Sickle Cell Crisis and Leukocytosis. Sickle Cell Crisis (likely 2/2 recent COVID 19 infection) - Transfer established to [facility] - insurance approval pending (estimated date of completion 04/22/22) - Concern exists for potential to develop Acute Chest Syndrome - [facility] does not have ability to provide ketamine infusions or exchange transfusions - Received IVF, Dilaudid, and Dexamethasone 10 mg in ED - Adjusted SCALE EXPERT pump, to basal and push dosing (50/50) due to uncontrolled pain SCALE EXPERT Dose - 0.15 mg, Lockout Interval 10 minutes, Continuous Dose - 0.9 mg/hr, 1 hr max 1.8 mg Currently receiving Miralax and Senokot, added Milk of Mag to assist patient with moving bowels (last BM 04/12) Patient notes diminished bowel movements since initiation of opioid pain management - Continue 08/18 NS 150 ml/hr - Hgb 9.7 9/3 (baseline mid-10-11s) - WBC 21.85 9/3 (down from 27.43) - No current outpatient management of SCD - consider hydroxyurea as outpatient Knee Pain a/w Sickle Cell Disease - Patient commonly experiences left knee and back pain during Sickle Cell flares - Pain currently worst in patient's left knee, no back pain - Patient receiving lidocaine patches for left knee - Tylenol 650 mg q6hr scheduled, oxycodone 5 mg PO q4hr PRN Leukocytosis (considered 2/2 steroids vs infection vs stress) - WBC 21.85 9/3 (down from 27.43) - Patient afebrile - CXR 04/18 showed development of bibasilar opacities, greater on the left - CT-Chest 04/18 showed small left and trace right pleural effusions - Continue Vancomycin, Cefepime, and Azithromycin (d/t concern for progression to Acute Chest Syndrome) - Transfer to [facility] pending - Plan for transfer discussed with patient and mother, both expressed understa nding COVID-19 - Symptoms began 04/14, cough resolved since 04/16, Paxlovid x 5 days (began 04/15) - Pt. has had COVID-19 before, for which she was hospitalized x2 weeks. - Dexamethasone 10mg in ER x1, 6 mg x1 (04/15) - Original Chest XR on 04/14, per radiologist impression: No acute abnormalities and in particular no evidence of pneumonia - Chest XR 04/18 showed infiltrates as above - Concern for worsening condition led to transfer request to [facility] as above Asthma - Controlled at home with albuterol inhaler and Symbicort. - Albuterol nebulizer q6h scheduled - Given dexamethasone 6 mg on 04/15 for wheezing, which improved her air movement but worsened SCD pain, steroids discontinued - Prescribed Breo (fluticasone/vilanterol) in replacement of home Symbicort, Paxlovid has potential interaction with Breo, thus dosing was decreased to 100 mcg/25 mcg daily. - RT recommended the addition of Mucinex BID, hypertonic saline nebs, chest PT, and PRN albuterol nebs on top of scheduled q6hr Anxiety - Continue home Sertraline 75 mg qhs (2) COVID-19 virus infection: (3) Anxiety: (4) Asthma: Plan Fluids: 1/2 NS 150 ml/hr DVT ppx: SCDs Diet: Regular Code: Full Dispo: [facility], pending financial approval, est. Thursday Admission and Anticipated Discharge Date Admission Date: April 14, 2022 Supervising Physician Co-Signing Physician Notes Patient seen and examined, chart reviewed, case discussed with Dorys Correa, and I agree with the assessment and plan as above except as otherwise noted Labs and images reviewed Kaylan seen at the bedside this morning. She has had increased pain, particularly overnight. She finds that because she is using substation wireman pain control she sleeps through a couple of doses and wakes up in extreme pain needing then additional breakthrough which has been frustrating to her. No chest pain, chest pressure, shortness of breath. Does continue to have cough. Pain is 8/10 at bedside assessment this morning. Reached out to [place] who have accepted her for transfer, a bed is not yet available due to pending insurance authorization which could be as late as Thursday. Did reach out to sickle cell clinic as well, they will try to facilitate but are not optimistic that this will be done due to the holiday weekend limiting insurance coverage. Due to the patient that she is currently clinically doing well, has no hypoxia, and hemoglobin is relatively stable. Should she have a worsening clinical course or drop in hemoglobin, can transfuse but would ultimately require transfer to a closer tertiary care facility such as [facility] or [facility] at that time. Patient and her mother updated extensively, they would like to continue to wait for [facility] and should patient start to decline then consider other tertiary care options. She may also stabilize and do well over the next 2 to 3 days ultimately not requiring transfer, however if her COVID or other symptoms worsen steroid treatment would be risky and patient should be seen in a facility equipped to provide exchange transfusion if required. Diffuse pain but not worsened on palpation, no abdominal tenderness, heart rate is regular, normotensive, patient is awake and alert at time of bedside talking on phone with her mom. Lungs are clear to auscultation. She has an adequate pain at this time and this is worsened overnight between button presses. We will convert 50% of her dose to basal, and keep the other 50% as on-call and see if this provides better relief particularly overnight. Continue labs daily, repeat chest x-ray in the morning, and follow clinically. Mikey Kimbrough is a 22 year old female with history of sickle cell disease (most recently hospitalized in November) who presented to the emergency department 04/14 with chief concern of cough and generalized body pain. Patient was admitted for suspected Sickle Cell Crisis and Leukocytosis. 04/19/22: - Patient continues to localize pain to the left side of her body, she states that her discomfort is primarily in the left knee - Today, she notes that her pain is not well controlled and that her knee is a significant driving factor (she denies recent injury, edema, or erythema to the joint) - She continues to use the heating pad on the knee, which she believes is helpful. - She believes that otherwise, she is doing well, her cough is improving, she is not dyspnic or having difficulty breathing. No chest pain or back pain. - Pt. notes that she has not moved her bowels in 1 week since starting pain meds, she normally moves her bowels daily, she denies abdominal pain, bloating, nausea, or emesis. Review of Systems Review of Systems: See HPI. Physical Exam Physical Exam: Gen: NAD, alert, interactive Resp:Non-labored, no wheezing/rhonchi/rales, CTAB CV:RRR, normal S1/S2, no M/R/G Abd: Soft, non-distended, no TTP, bowel sounds present, no masses Extr: 2+ dp bilaterally, no edema, no erythema or edema of left knee, no rashes or lesions, decreased active ROM 2/2 pain Results & Data Results & Data ([facility]) Vital Signs (Past 12 Hours) Vital Signs Temp Pulse Pulse Resp BP BP Pulse Ox 04/19/22 07:49 37.0 C 72 20 130/88 95 04/19/22 07:46 04/19/22 07:18 76 16 98 04/19/22 07:04 70 04/19/22 03:19 37.0 C 103 H 18 130/80 94 O2 Del Method 04/19/22 07:49 Room Air 04/19/22 07:46 Room Air 04/19/22 07:18 Room Air 04/19/22 07:04 04/19/22 03:19 Room Air Diagnostic Findings Chest XR 04/18/22: 1. Interval development of bibasilar opacities, greater on the left. The findings could reflect pneumonia or atelectasis on this hypoventilatory study. However, acute chest syndrome given history of sickle cell disease could appear similar. 2. Suspected small left and trace right pleural effusions. Chest CT 04/18/22: Small left and trace right pleural effusions. Mild bilateral lower lobe airspace opacities, greater within the left lower lobe. These opacities are nonspecific and may reflect pneumonia or less likely atelectasis. Although less likely, acute chest syndrome could appear similar given history of sickle cell disease. Resident Activity Tracking Resident Involvement: Resident Care Provided Care Provided: Adult [facility]
[2022-04-19] MEDS: SODIUM CHLORIDE 0.45 % 1,000 ML IV SCH ×3 (12:40→20:55)
[2022-04-19] MEDS ORDERED: HYDROmorphone INJ 1 MG/ML SYRINGE IV PRN (12:55)
[2022-04-19] MEDS: MAGNESIUM HYDROXIDE SUSP 30 ML UDC PO PRN (13:00)
--- NOTE | 2022-04-19 13:03 | Pharmacy Report ---
Pharmacy PK ABX Note - Date of Service April 19, 2022 - Assessment and Plan Assessment * 22 year old F receiving cefepime, vancomycin, azithromycin for treatment of PNA and possible acute chest syndrome associated with sickle cell crisis. * Pertinent microbiologic data includes: Negative MRSA Nasal Swab * Discussed with Dr. Wright - patient to be transferred hopefully soon and antibiotic regimen above recommended by transferring facility Vancomycin * Target AUC/VIN of 400-600 mg/L.hr * Trough level today of 7.8 mcg/mL is associated with a therapeutic AUC of 463 mg/L.hr Plan * Continue vancomycin 1000 mg IV q8h * Repeat trough in 48-72 hours if she remains at [facility] Pharmacy will continue to follow and will adjust dose/frequency as necessary. Thank you. Pharmacy has transitioned to AUC monitoring for vancomycin. AUC/VIN is the preferred PK/PD target and is associated with decreased risk of nephrotoxicity compared to traditional trough targets.
--- NOTE | 2022-04-19 15:12 | Billing Data ---
Date of Service April 19, 2022 Coding Level of Care Code 91097 Subseq Hosp Care Lvl 3
[2022-04-19] MEDS: SERTRALINE HCL 50 MG TABLET PO SCH (19:37)
[2022-04-20] MEDS: ALBUTEROL 0.083% NEBU SOLN 3 ML VIAL NEB SCH ×4 (00:51→19:22)
[2022-04-20] MEDS: VANCOMYCIN HCL 1,000 MG in SODIUM CHLORIDE 0.9% 250 ML IV SCH ×3 (03:29→20:03)
[2022-04-20] MEDS: CEFEPIME 2,000 MG in SYRINGE 0 ML IV SCH ×3 (03:29→18:17)
[2022-04-20] MEDS: SODIUM CHLORIDE 0.45 % 1,000 ML IV SCH ×4 (04:55→22:47)
[2022-04-20] MEDS: SODIUM CHLOR 7% 4 ML NEB NEB SCH ×2 (07:34→19:22)
[2022-04-20] MEDS: ACETAMINOPHEN 500 MG TAB PO SCH ×3 (07:44→20:03)
[2022-04-20 08:10] LABS: Basophils # (auto) 0.04 K/uL (0-0.2); Basophils % (auto) 0.2 %; Eosinophils # (auto) 0.25 K/uL (0-0.50); Eosinophils % (auto) 1.4 %; Hematocrit (blood only) 28.7 % (34.1-44.9); Hemoglobin 10.5 g/dl (12.0-16.0); Immature Granulocytes # (auto) 0.15 K/uL (0.00-0.02); Immature Granulocytes % (auto) 0.8 %; Lymphocytes # (auto) 2.59 K/uL (1.2-3.4); Lymphocytes % (auto) 14.4 %; Mean Corpuscular Hemoglobin 31.2 pg (25.0-34.0); Mean Corpuscular Hgb Conc 36.6 g/dL (32.0-36.0); Mean Corpuscular Volume 85.2 fL (80.0-100.0); Mean Platelet Volume 9.3 fL (9.4-12.3); Monocytes % (auto) 10.5 %; Neutrophils # (auto) 13.11 K/uL (1.4-6.5); Neutrophils % (auto) 72.7 %; Nucleated RBC # (auto) 0.57 K/uL (0-0); Nucleated RBC % (auto) 3.2 %; Platelet Count 343 K/uL (130-400); RDW Coefficient of Variation 15.7 % (11.5-14.5); RDW Standard Deviation 43.8 fL (36.4-46.3); Red Blood Count 3.37 M/uL (3.93-5.22); Reticulocyte % 12.3 % (0.5-2.0); Reticulocytes # 0.41 10^6/uL (0.02-0.10); White Blood Count 18.04 K/ul (4.8-10.8)
--- NOTE | 2022-04-20 08:12 | Hospitalist Progress Note ---
Date of Service April 20, 2022 Assessment & Plan (1) Sickle cell disease with crisis: Plan: Kaylan is a 22 year old female with history of sickle cell disease (most recently hospitalized in November) who presented to the emergency department 04/14 with chief concern of cough and generalized body pain. Patient was admitted for suspected Sickle Cell Crisis and Leukocytosis. 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 Dose - 0.15 mg, Lockout Interval 10 minutes, Continuous Dose - 0.9 mg/hr, 1 hr max 1.8 mg Currently receiving Miralax and Senokot, added Milk of Mag to assist patient with moving bowels (last BM 04/12) Patient notes diminished bowel movements since initiation of opioid pain management - Continue 08/18 NS 150 ml/hr - Hgb 10.5 04/20 (baseline mid 10-11s) - WBC 18.04 / (down from 21.85 9/3) - Bilirubin 1.6, CMP otherwise wnl - No current outpatient management of SCD - consider hydroxyurea as outpatient Knee Pain a/w Sickle Cell Disease - Patient commonly experiences left knee and back pain during Sickle Cell flares - Pain currently worst in patient's left knee, no back pain - Patient receiving lidocaine patches and heating pads for left knee - Tylenol 650 mg q6hr scheduled, oxycodone 5 mg PO q4hr PRN, G[employer] APPLIANCE INSTALLER pump in place - Consulted PT to assist patient with mobility of knee Leukocytosis (considered 2/2 steroids vs infection vs stress) - WBC 18.04 9/4 (down from 21.85 9/3) - Patient afebrile - CXR 04/20 no significant change compated to 04/19, radiology read pending - CT-Chest 04/18 showed small left and trace right pleural effusions - Continue Vancomycin, Cefepime, and Azithromycin (d/t concern for progression to Acute Chest Syndrome) - Transfer to [facility] pending - Plan for transfer discussed with patient and mother, both expressed understanding COVID-19 - Symptoms began 04/14, cough resolved since 04/16, Paxlovid x 5 days (begun 04/15) - Pt. has had COVID-19 before, for which she was hospitalized x2 weeks. - Dexamethasone 10mg in ER x1, 6 mg x1 (04/15) - Original Chest XR on 04/14, per radiologist impression: No acute abnormalities and in particular no evidence of pneumonia - Chest XR 04/20 pending - Concern for worsening condition led to transfer request to [facility] as above Asthma - Controlled at home with albuterol inhaler and Symbicort. - Albuterol nebulizer q6h scheduled - Given dexamethasone 6 mg on 04/15 for wheezing, which improved her air movement but worsened SCD pain, steroids discontinued - Prescribed Breo (fluticasone/vilanterol) in replacement of home Symbicort, Paxlovid has potential interaction with Breo, thus dosing was decreased to 100 mcg/25 mcg daily. - RT recommended the addition of Mucinex BID, hypertonic saline nebs, chest PT, and PRN albuterol nebs on top of scheduled q6hr Anxiety - Continue home Sertraline 75 mg qhs (2) COVID-19 virus infection: (3) Anxiety: (4) Asthma: Plan Fluids: 1/2 NS 150 ml/hr DVT ppx: SCDs Diet: Regular Code: Full Dispo: [facility], pending financial approval, est. Thursday Admission and Anticipated Discharge Date Admission Date: April 14, 2022 Supervising Physician Co-Signing Physician Notes Patient seen and examined, chart reviewed, case discussed with Dorys Correa, and I agree with the assessment and plan as above except as otherwise noted Labs and images reviewed Che seen the bedside in the presence of her parents. Kaylan is doing well, no chest pain, chest pressure, shortness of breath, difficulty breathing. Her pain is improved with the basal and she slept much better overnight. Still continues to have some pain including left knee pain, but this is significantly improved from yesterday. Hemoglobin and reticulocyte counts remain stable, although bilirubin increased slightly. CXR relatively unchanged. Given that she is doing well and moving through [facility] and now off back Slo-Bid oral inhaled steroids are much less risky. If she developed worsening COVID/inflammatory phase [facility] would still recommend transfer to [place] for risk of chest with steroid use, however at this time she is progressing well and may be able to ultimately avoid this. Discussed with family who are in agreement, will follow with sickle crisis, transfer if she has a drop in hemoglobin or worsening respiratory status, but hopefully progress out of pain crisis at this time. If still here can update with sickle clinic on Thursday, and if she continues to do well would recommend decreasing basal dose tomorrow. At bedside left knee is tender to palpation, some left shoulder pain, lungs are clear to auscultation bilaterally, heart rate is regular, skin is warm and dry Subjective Kaylan is a 22 year old female with history of sickle cell disease (most recently hospitalized in November) who presented to the emergency department 04/14 with chief concern of cough and generalized body pain. Patient was admitted for suspected Sickle Cell Crisis and Leukocytosis. 04/20/22: - Patient notes that her pain is more controlled than yesterday, but is still ongoing - She continues to endorse 04/26 left knee pain without back pain or chest pain - Her cough remains resolved, she is not dyspneic or having pleuritic pain - She continues to use the heating pad and lidocaine patches on the knee with benefit - Patient has not yet moved her bowels but feels as though she will today, denies abdominal pain or bloating - Pt requesting PT come see her for her knee as pain is aggravated by ongoing immobility 04/19/22: - Patient continues to localize pain to the left side of her body, she states that her discomfort is primarily in the left knee - She notes that her pain is not well controlled and that her knee is a significant driving factor (she denies recent injury, edema, or erythema to the joint) - She continues to use the heating pad on the knee, which she believes is helpful. - She believes that otherwise, she is doing well, her cough is improving, she is not dyspnic or having difficulty breathing. No chest pain or back pain. - Pt. notes that she has not moved her bowels in 1 week since starting pain meds, she normally moves her bowels daily, she denies abdominal pain, bloating, nausea, or emesis. Review of Systems Review of Systems: See HPI. Physical Exam Physical Exam: Gen: NAD, alert, interactive Resp:Non-labored, no wheezing/rhonchi/rales, CTAB CV:RRR, normal S1/S2, no M/R/G Abd: Soft, non-distended, no TTP, bowel sounds present, no masses Extr: 2+ dp bilaterally, TTP of left knee, mild edema, no erythema, no rashes or lesions, decreased active ROM 2/2 pain Results & Data Results & Data ([facility]) Vital Signs (Past 12 Hours) Vital Signs Temp Pulse Pulse Resp BP BP Pulse Ox 04/20/22 07:52 36.6 C 84 18 137/93 98 04/20/22 07:36 04/20/22 07:35 74 16 98 04/20/22 07:03 75 04/20/22 03:35 37.2 C 87 16 120/82 98 04/20/22 00:51 83 18 100 04/19/22 23:29 37 C 96 H 18 128/77 98 04/19/22 23:57 101 H 04/19/22 22:11 O2 Del Method 04/20/22 07:52 Room Air 04/20/22 07:36 Room Air 04/20/22 07:35 Room Air 04/20/22 07:03 04/20/22 03:35 Room Air 04/20/22 00:51 Room Air 04/19/22 23:29 Room Air 04/19/22 23:57 04/19/22 22:11 Room Air Resident Activity Tracking Resident Involvement: Resident Care Provided Care Provided: Adult Hospital Medicine
[2022-04-20 08:31] LABS: Alanine Aminotransferase 14 U/L (7-52); Albumin Globulin Ratio 1.5 (0.9-2); Alkaline Phosphatase 55 U/L (34-104); Anion Gap 4 (3-11); Aspartate Aminotransferase 16 U/L (13-39); BUN Creatinine Ratio 13.1 (10-20); Bilirubin,Total 1.6 mg/dl (0.2-1.0); Blood Urea Nitrogen 8 mg/dl (6-23); Calcium 9.5 mg/dl (8.5-10.1); Carbon Dioxide 30 mmol/L (21-32); Chloride 103 mmol/L (98-107); Creatinine Clr Calc Pharmacy 141.9 ml/min; Est GFR (African American) > 150.0 ml/min; Est GFR (Non-African American) 129.6 ml/min; Globulin 2.6 gm/dl (2.5-4.0); Glucose 92 mg/dl (70-99(Fasting)); Poikilocytosis Present; Polychromasia 2+; Schistocytes 1+; Sodium 137 mmol/L (136-145); Stomatocytes 1+; Target Cells 3+; Total Protein 6.6 gm/dl (6.0-8.3); Toxic Granulation 1+; Toxic Vacuolation 1+
[2022-04-20] MEDS: guaiFENesin 600 MG TABCR PO SCH ×2 (09:11→20:03)
[2022-04-20] MEDS: SENNA 8.6 MG TAB PO SCH (09:12)
[2022-04-20] MEDS: POLYETHYLENE (MIRALAX) 17 GM PACK PO SCH (09:12)
[2022-04-20] MEDS: FOLIC ACID 1 MG TAB PO SCH (09:12)
[2022-04-20] MEDS: LIDOCAINE 5% 1 PATCH TD SCH ×2 (09:14)
[2022-04-20] MEDS: AZITHROMYCIN 500 MG in DEXTROSE 5% 250 ML IV SCH (10:30)
--- NOTE | 2022-04-20 13:31 | Billing Data ---
Date of Service April 20, 2022 Coding Level of Care Code 14639 Subseq Hosp Care Lvl 3
[2022-04-20] MEDS: MAGNESIUM HYDROXIDE SUSP 30 ML UDC PO PRN (18:17)
[2022-04-20] MEDS: SERTRALINE HCL 50 MG TABLET PO SCH (20:04)
--- NOTE | 2022-04-20 20:17 | XRay Report ---
XR chest 1V portable CLINICAL HISTORY: serial TECHNIQUE: Single frontal radiograph of the chest was obtained. Comparison: Comparison is made to chest radiograph 04/18/[address] chest 04/18/2022 FINDINGS: No lines and tubes are seen. The cardiomediastinal silhouette is normal. Airspace opacity in the left greater than right lower lungs is again seen. Stable appearance of small left and trace right pleura l effusions. IMPRESSION: Stable appearance of small left and trace right pleural effusions and bilateral airspace opacities wh ich may represent atelectasis, pneumonia, and/or aspiration, less likely acute chest syndrome. ACT 112: Negative or not required by law. Electronically signed by: Erik Estes M.D. 04/20/2022 8:15 PM
[2022-04-21] MEDS: ALBUTEROL 0.083% NEBU SOLN 3 ML VIAL NEB SCH ×4 (00:39→19:23)
[2022-04-21] MEDS: CEFEPIME 2,000 MG in SYRINGE 0 ML IV SCH ×3 (03:22→18:33)
[2022-04-21] MEDS: VANCOMYCIN HCL 1,000 MG in SODIUM CHLORIDE 0.9% 250 ML IV SCH ×2 (03:22→12:20)
[2022-04-21 05:51] LABS: Basophils # (auto) 0.05 K/uL (0-0.2); Basophils % (auto) 0.3 %; Eosinophils % (auto) 2.3 %; Hematocrit (blood only) 28.8 % (34.1-44.9); Hemoglobin 10.5 g/dl (12.0-16.0); Immature Granulocytes # (auto) 0.22 K/uL (0.00-0.02); Immature Granulocytes % (auto) 1.2 %; Lymphocytes % (auto) 11.9 %; Mean Corpuscular Hemoglobin 30.9 pg (25.0-34.0); Mean Corpuscular Hgb Conc 36.5 g/dL (32.0-36.0); Mean Corpuscular Volume 84.7 fL (80.0-100.0); Mean Platelet Volume 9.8 fL (9.4-12.3); Monocytes # (auto) 2.41 K/uL (0.24-0.82); Monocytes % (auto) 13.6 %; Neutrophils % (auto) 70.7 %; Nucleated RBC # (auto) 0.28 K/uL (0-0); Nucleated RBC % (auto) 1.6 %; Platelet Count 345 K/uL (130-400); RDW Coefficient of Variation 15.1 % (11.5-14.5); RDW Standard Deviation 44.6 fL (36.4-46.3); White Blood Count 17.68 K/ul (4.8-10.8)
[2022-04-21 06:19] LABS: Alanine Aminotransferase 16 U/L (7-52); Albumin Globulin Ratio 1.4 (0.9-2); Albumin Level 3.9 gm/dl (3.4-5.0); Alkaline Phosphatase 49 U/L (34-104); Anion Gap 4 (3-11); Aspartate Aminotransferase 18 U/L (13-39); Bilirubin,Total 1.2 mg/dl (0.2-1.0); Blood Urea Nitrogen 11 mg/dl (6-23); Calcium 9.2 mg/dl (8.5-10.1); Carbon Dioxide 26 mmol/L (21-32); Chloride 105 mmol/L (98-107); Creatinine Clr Calc Pharmacy 157.3 ml/min; Est GFR (African American) > 150.0 ml/min; Est GFR (Non-African American) 134.1 ml/min; Globulin 2.7 gm/dl (2.5-4.0); Glucose 98 mg/dl (70-99(Fasting)); Potassium 4.5 mmol/L (3.5-5.1); Sodium 135 mmol/L (136-145); Total Protein 6.6 gm/dl (6.0-8.3)
[2022-04-21] MEDS: ACETAMINOPHEN 500 MG TAB PO SCH ×3 (06:36→22:05)
--- NOTE | 2022-04-21 06:46 | Hospitalist Progress Note ---
Date of Service April 21, 2022 Assessment & Plan (1) Sickle cell disease with crisis: Plan: Kaylan is a 22 year old female with history of sickle cell disease (most recently hospitalized in November) who presented to the emergency department 04/14 with chief concern of cough and generalized body pain. Patient was admitted for suspected Sickle Cell Crisis and Leukocytosis. Sickle Cell Crisis (likely 2/2 recent COVID 19 infection) - Pain in left knee, same location as prior sickle cell crisis - Transfer established to [facility] due to concerns for progression to ACS ([facility] doesn't have ability to provide ketamine infusions or exchange transfusions). Insurance approval pending (estimated date of completion 04/22/22). - Pain regimen - WELL TENDER pump adjusted to basal and push dosing (50/50) due to uncontrolled pain 04/20 - WELL TENDER Dose - 0.15 mg, Lockout Interval 10 minutes, Continuous Dose - 0.9 mg/hr, 1 hr max 1.8 mg - 6 push doses so far today - Also has oxycodone 5mg q4 ordered for moderate pain; has not gotten since WELL TENDER was adjusted to bolus dosing - Continue with heat/lidocaine patches for knee as they are tolerated. PT consulted. - Currently receiving Miralax and Senokot, added Milk of Mag to assist patient with moving bowels (last BM 04/12) - Continue 1/2 NS 150 ml/hr - Hgb 10.5 9/5 (baseline mid 10-11s, Absolute reticulylte count= 7.2 with a reticulocyte index= 4.80 - No current outpatient management of SCD - consider hydroxyurea as outpatient Leukocytosis (considered 2/2 steroids vs infection vs stress) - WBC 17.68 04/20 (down from 21.85 04/19) - Patient afebrile - CT-Chest 04/18 showed small left and trace right pleural effusions -CXR 04/20 consistent with prior; shows small left and trace right pleural effusions and bilateral airspace opacities which may represent atelectasis, pneumonia, and/or aspiration, less likely acute chest syndrome - Continue Vancomycin, Cefepime, and Azithromycin (d/t concern for progression to Acute Chest Syndrome) - Plan to repeat CXR tomorrow morning COVID-19 - Symptoms began 04/14, and have since resolved - Paxlovid x 5 days (begun 04/15) - Pt. has had COVID-19 before, for which she was hospitalized x2 weeks. - CXR as per above Asthma - Albuterol nebulizer q6h scheduled - Given dexamethasone 6 mg on 04/15 for wheezing, which improved her air movement but worsened SCD pain, steroids discontinued - Was transitioned to Breo in replacement of home Symbicort due to interactions between Paxlovid a - Prescribed Breo (fluticasone/vilanterol) in replacement of home Symbicort. Breo currently being held due to steroid component in addition to interaction with Paxlovid. - RT recommended the addition of Mucinex BID, hypertonic saline nebs, chest PT, and PRN albuterol nebs on top of scheduled q6hr Anxiety - Continue home Sertraline 75 mg qhs (2) COVID-19 virus infection: (3) Anxiety: (4) Asthma: Plan Fluids: 1/2 NS 150 ml/hr DVT ppx: SCDs Diet: Regular Code: Full Dispo: [facility], pending financial approval, est. Thursday Admission and Anticipated Discharge Date Admission Date: April 14, 2022 Supervising Physician Co-Signing Physician Notes Attending attestation Pt seen and examined in concert with Dr. Jacobson. In agreement with the documented findings as noted in the resident documentation with any exceptions or additions as noted here. Reports ongoing pain of the left knee which is moderately well controlled with WELL TENDER baseline and warm compresses, tolerating POI well. Reviewed transfer criteria to and patient is hesitant to do so at this time citing improvement/stability. On examination, S1/S2 nl RRR no MCG. CTAB. Abd NT/ND BS+ve, no TTP or swelling of the LLE appreciated. Sickle cell disease, in crisis - WELL TENDER for pain control, restart hydration w/ 1/2 NS. Monitor HGB. Coordinate with as needed. Pneumonia in the setting of COVID-19, asthma - continue abx as noted. Repeat CXR tomorrow. Avoiding steroids of all delivery 2/2 SCD Else see resident documentation as noted. Mikey Kimbrough is a 22 year old female with history of sickle cell disease (most recently hospitalized in November) who presented to the emergency department 04/14 with chief concern of cough and generalized body pain. Patient was admitted for suspected Sickle Cell Crisis and Leukocytosis. She is resting comfortably this morning. Is still have some mild pain in her left knee, but has significantly improved from yesterday. She does have pain when she ambulates. Denies any back or chest pain. Cough has resolved. Has not had a bowel movement in about a week. Physical Exam Physical Exam: Constitutional: well-appearing, no acute distress HEENT: NCAT, no conjunctival injection CV: regular rhythm, no murmur appreciated, extremities well-perfused, no LE edema Resp: CTABL, no wheezes/rales/rhonchi appreciated, no increased work of breathing GI: soft, nondistended, nontender, BS normoactive MSK: no gross deformities appreciated. Mild tenderness to palpation of left knee. Normal range of motion. No rashes or lesions. No edema/erythema. Skin: warm, dry, no rash appreciated Neuro: alert, oriented, no focal neurologic deficit appreciated Results & Data Results & Data ([facility]) Vital Signs (Past 12 Hours) Vital Signs Temp Pulse Pulse Resp BP Pulse Ox O2 Del Method 04/21/22 04:00 37.0 C 94 H 18 115/78 97 Room Air 04/21/22 00:39 91 H 16 99 Room Air 04/20/22 23:35 37.5 C 100 H 20 118/79 100 Room Air 04/20/22 22:50 97 H 04/20/22 22:27 Room Air 04/20/22 21:43 37.0 C 102 H 18 120/98 98 Room Air 04/20/22 19:23 93 H 16 99 Room Air
[2022-04-21 06:52] LABS: Poikilocytosis Present; Polychromasia 1+; Reticulocyte % 10.4 % (0.5-2.0); Reticulocytes # 0.35 10^6/uL (0.02-0.10); Stomatocytes 1+; Target Cells 1+
[2022-04-21] MEDS: LIDOCAINE 5% 1 PATCH TD SCH ×4 (07:23→13:14)
[2022-04-21] MEDS: HYDROmorphone PCA 30 MG/30 ML IV PRN ×2 (07:23→09:48)
[2022-04-21] MEDS: guaiFENesin 600 MG TABCR PO SCH ×2 (07:23→22:06)
[2022-04-21] MEDS: SENNA 8.6 MG TAB PO SCH (07:24)
[2022-04-21] MEDS: FOLIC ACID 1 MG TAB PO SCH (07:24)
[2022-04-21] MEDS: POLYETHYLENE (MIRALAX) 17 GM PACK PO SCH (07:24)
[2022-04-21] MEDS: SODIUM CHLOR 7% 4 ML NEB NEB SCH ×2 (07:29→19:23)
[2022-04-21] MEDS: SODIUM CHLORIDE 0.45 % 1,000 ML IV SCH ×4 (07:36→22:07)
[2022-04-21] MEDS: AZITHROMYCIN 500 MG in DEXTROSE 5% 250 ML IV SCH (09:48)
[2022-04-21] MEDS ORDERED: VANCOMYCIN LEVEL ONE (11:30)
--- NOTE | 2022-04-21 12:10 | Pharmacy Report ---
Pharmacy PK ABX Note - Date of Service April 21, 2022 - Assessment and Plan Assessment * 22 year old F receiving cefepime, vancomycin, azithromycin for treatment of PNA and possible acute chest syndrome associated with sickle cell crisis. * Pertinent microbiologic data includes: Negative MRSA Nasal Swab * Discussed with Dr. Wright - patient to be transferred and antibiotic regimen above recommended by transferring facility Vancomycin * Target AUC/VIN of 400-600 mg/L.hr * Stat repeat trough level today - 5.4mcg/mL (8hr steady state level) is associated with a SUBtherapeutic AUC of 365mg/L.hr Plan * Change to vancomycin 1500mg IV q8h to start NOW. Predicted to achieve a steady state AUC of 547mg/L.hr. * Repeat trough in 48-72 hours if she remains at [facility] Pharmacy will continue to follow and will adjust dose/frequency as necessary. Thank you. Pharmacy has transitioned to AUC monitoring for vancomycin. AUC/VIN is the preferred PK/PD target and is associated with decreased risk of nephrotoxicity compared to traditional trough targets.
[2022-04-21] MEDS: VANCOMYCIN HCL 1,500 MG in SODIUM CHLORIDE 0.9% 500 ML IV SCH ×2 (12:44→19:52)
[2022-04-21] MEDS: SERTRALINE HCL 50 MG TABLET PO SCH (22:06)
[2022-04-22] MEDS: CEFEPIME 2,000 MG in SYRINGE 0 ML IV SCH ×3 (03:21→19:50)
[2022-04-22] MEDS: VANCOMYCIN HCL 1,500 MG in SODIUM CHLORIDE 0.9% 500 ML IV SCH ×3 (03:27→22:45)
[2022-04-22] MEDS: ALBUTEROL 0.083% NEBU SOLN 3 ML VIAL NEB SCH ×3 (05:08→14:19)
[2022-04-22] MEDS: ACETAMINOPHEN 500 MG TAB PO SCH ×3 (06:16→21:57)
[2022-04-22] MEDS: SODIUM CHLORIDE 0.45 % 1,000 ML IV SCH ×2 (06:16→15:54)
[2022-04-22] MEDS: SODIUM CHLOR 7% 4 ML NEB NEB SCH (06:55)
[2022-04-22 06:59] LABS: Basophils # (auto) 0.04 K/uL (0-0.2); Basophils % (auto) 0.3 %; Eosinophils # (auto) 0.59 K/uL (0-0.50); Eosinophils % (auto) 3.9 %; Immature Granulocytes # (auto) 0.19 K/uL (0.00-0.02); Immature Granulocytes % (auto) 1.2 %; Lymphocytes # (auto) 1.83 K/uL (1.2-3.4); Mean Corpuscular Hemoglobin 31.3 pg (25.0-34.0); Mean Corpuscular Volume 84.4 fL (80.0-100.0); Mean Platelet Volume 9.4 fL (9.4-12.3); Monocytes # (auto) 2.55 K/uL (0.24-0.82); Monocytes % (auto) 16.7 %; Neutrophils # (auto) 10.06 K/uL (1.4-6.5); Neutrophils % (auto) 65.9 %; Nucleated RBC # (auto) 0.05 K/uL (0-0); Nucleated RBC % (auto) 0.3 %; Platelet Count 323 K/uL (130-400); RDW Coefficient of Variation 14.7 % (11.5-14.5); RDW Standard Deviation 44.3 fL (36.4-46.3); White Blood Count 15.26 K/ul (4.8-10.8)
--- NOTE | 2022-04-22 07:04 | Hospitalist Progress Note ---
Date of Service April 22, 2022 Assessment & Plan (1) Sickle cell disease with crisis: Plan: Kaylan is a 22 year old female with history of sickle cell disease (most recently hospitalized in November) who presented to the emergency department 04/14 with chief concern of cough and generalized body pain. Patient was admitted for suspected Sickle Cell Crisis and Leukocytosis. Sickle Cell Crisis (likely 2/2 recent COVID 19 infection) - Pain in left knee, same location as prior sickle cell crisis - Transfer to [facility] did get get approved by insurance - Pain regimen: plan to switch from basal and pushes to just pushes - Plan for 2mg Dilaudid q3 prn for severe pain, 5mg oxycodone q4 prn for moderate pain - Continue with heat/lidocaine patches for knee as they are tolerated. PT consulted. - Currently receiving Miralax and Senokot, added Milk of Mag to assist patient with moving bowels (last BM 04/12) - Continue 1/2 NS 150 ml/hr - Hgb 10.5 (baseline mid 10-11s) - No current outpatient management of SCD - consider hydroxyurea as outpatient Leukocytosis (considered 2/2 steroids vs infection vs stress) - WBC 15.26 (down from 21.85 04/19) - Patient afebrile Pneumonia - CT-Chest 04/18 showed small left and trace right pleural effusions -CXR 04/20 consistent with prior; shows small left and trace right pleural effusions and bilateral airspace opacities which may represent atelectasis, pneumonia, and/or aspiration, less likely acute chest syndrome - repeat CXR shows Interval resolution of the pleural effusions and near- complete resolution of the left basilar airspace opacity. - Completed 5 day course of Azithromycin; will continue vancomycin and cepeime for a total of 7 days COVID-19 - Symptoms began 04/14, and have since resolved - Paxlovid x 5 days (begun 04/15) - Pt. has had COVID-19 before, for which she was hospitalized x2 weeks. Asthma - Albuterol nebulizer q6h scheduled - Given dexamethasone 6 mg on 04/15 for wheezing, which improved her air movement but worsened SCD pain, steroids discontinued - Prescribed Breo (fluticasone/vilanterol) in replacement of home Symbicort. Breo currently being held due to steroid component in addition to interaction with Paxlovid. Anxiety - Continue home Sertraline 75 mg qhs (2) COVID-19 virus infection: (3) Anxiety: (4) Asthma: Plan Fluids: 1/2 NS 150 ml/hr DVT ppx: SCDs Diet: Regular Code: Full Dispo: [facility], pending financial approval, est. Thursday Admission and Anticipated Discharge Date Admission Date: April 14, 2022 Supervising Physician Co-Signing Physician Notes Attending attestation Pt seen and examined in concert with Dr. Jacobson. In agreement with the documented findings as noted in the resident documentation with any exceptions or additions as noted here. Gradual improvement of reported left knee pain on current pain medication with significant somnolence apparent in the mid afternoon in the room. Transfer to denied. Patient wishes to aim for discharge and is agreeable to [employer] taper to start. Nursing notes, VS reviewed. On examination, S1/S2 nl RRR no MCG. CTAB. Abd NT/ND BS+ve, no TTP or swelling of the LLE appreciated. Sickle cell disease, in crisis - [employer] for pain control with taper to PRN only dose. Continue IV hydration and monitor HGB. Pneumonia in the setting of COVID-19, asthma - continue abx as noted, transition to PO to complete course in AM. Avoiding steroids of all delivery 2/2 SCD Else see resident documentation as noted. Mikey Kimbrough is a 22 year old female with history of sickle cell disease (most recently hospitalized in November) who presented to the emergency department 04/14 with chief concern of cough and generalized body pain. Patient was admitted for suspected Sickle Cell Crisis and Leukocytosis. She is resting comfortably this morning. Still has some mild left knee pain that is worse with ambulation. Says that her pain is relatively well controlled on current regimen. She would either like to be transferred today or would be willing to switch to just pushes with [employer] with the goal of being discharged. Physical Exam Physical Exam: Constitutional: well-appearing, no acute distress HEENT: NCAT, no conjunctival injection CV: regular rhythm, no murmur appreciated, extremities well-perfused, no LE edema Resp: CTABL, no wheezes/rales/rhonchi appreciated, no increased work of breathing GI: soft, nondistended, nontender, BS normoactive MSK: no gross deformities appreciated. Mild tenderness to palpation of left knee. Normal range of motion. No rashes or lesions. No edema/erythema. Skin: warm, dry, no rash appreciated Neuro: alert, oriented, no focal neurologic deficit appreciated Results & Data Results & Data ([facility]) Vital Signs (Past 12 Hours) Vital Signs Temp Pulse Pulse Resp BP BP Pulse Ox 04/22/22 03:23 36.8 C 98 H 16 112/66 100 04/21/22 23:55 101 H 04/21/22 22:00 37.0 C 96 H 16 116/80 98 04/21/22 19:27 99 H 16 98 O2 Del Method 04/22/22 03:23 Room Air 04/21/22 23:55 04/21/22 22:00 Room Air 04/21/22 19:27 Room Air Resident Activity Tracking Resident Involvement: Resident Care Provided Care Provided: Adult Hospital Medicine
[2022-04-22 07:50] LABS: Howell-Jolly Bodies 1+; Polychromasia 2+; Reticulocyte % 6.1 % (0.5-2.0); Target Cells 2+
[2022-04-22 07:57] LABS: Alanine Aminotransferase 24 U/L (7-52); Albumin Globulin Ratio 1.3 (0.9-2); Albumin Level 3.8 gm/dl (3.4-5.0); Alkaline Phosphatase 52 U/L (34-104); Anion Gap 3 (3-11); Aspartate Aminotransferase 24 U/L (13-39); Bilirubin,Total 0.8 mg/dl (0.2-1.0); Blood Urea Nitrogen 9 mg/dl (6-23); Calcium 9.4 mg/dl (8.5-10.1); Carbon Dioxide 28 mmol/L (21-32); Chloride 103 mmol/L (98-107); Creatinine Clr Calc Pharmacy 163.3 ml/min; Est GFR (African American) > 150.0 ml/min; Est GFR (Non-African American) 135.7 ml/min; Globulin 2.9 gm/dl (2.5-4.0); Glucose 74 mg/dl (70-99(Fasting)); Potassium 4.2 mmol/L (3.5-5.1); Sodium 134 mmol/L (136-145); Total Protein 6.7 gm/dl (6.0-8.3)
[2022-04-22] MEDS: POLYETHYLENE (MIRALAX) 17 GM PACK PO SCH (08:31)
[2022-04-22] MEDS: guaiFENesin 600 MG TABCR PO SCH (08:31)
[2022-04-22] MEDS: FOLIC ACID 1 MG TAB PO SCH (08:31)
[2022-04-22] MEDS: SENNA 8.6 MG TAB PO SCH (08:31)
[2022-04-22] MEDS: LIDOCAINE 5% 1 PATCH TD SCH ×2 (08:32)
[2022-04-22] MEDS: AZITHROMYCIN 500 MG in DEXTROSE 5% 250 ML IV SCH (10:48)
[2022-04-22] MEDS ORDERED: VANCOMYCIN LEVEL ONE (12:00)
--- NOTE | 2022-04-22 12:20 | XRay Report ---
XR chest 1V portable HISTORY: Pneumonia. Follow-up. COMPARISON: Chest 04/20/2022. FINDINGS: No pneumothorax. The pleural effusions appear to have resolved in the interval. Faint patch y left base airspace opacity has also improved in the interval. No new focal lung consolidations. No evidence for pulmonary edema. The heart is normal in size. IMPRESSION: Interval resolution of the pleural effusions and near-complete resolution of the left basilar airspac e opacity. ACT 112: Negative or not required by law. Electronically signed by: Vitor Waite M.D. 04/22/2022 12:19 PM
[2022-04-22] MEDS: HYDROmorphone PCA 30 MG/30 ML IV PRN (13:16)
--- NOTE | 2022-04-22 13:22 | Pharmacy Report ---
Pharmacy Vanc AUC Short Note - Date of Service April 22, 2022 - Assessment & Plan Assessment 22 year old F receiving vancomycin and cefepime for PNA and possible acute chest syndrome associated with sickle cell crisis. Day # 5 of antimicrobial therapy. Plan Vancomycin * AUC/VIN is the preferred PK/PD target for vancomycin * AUC guided dosing is effective and associated with decreased risk of nephrotoxicity compared to traditional trough targets * Vancomycin level came back at ~9.8 mg/dL. Based upon [facility] this current vancomycin dosing is estimated to achieve a trough level of ~12 mcg/ml and target an AUC/VIN of ~530 mg/L.hr and may be associated with a 7 % risk of nephrotoxicity * Will plan to continue same vancomycin dosing of 1500 mg iv q 8 hrs since AUC/VIN within goal. * Will plan to repeat vancomycin level in next 2-3 days to ensure stable Pharmacy will continue to follow and will adjust dose/frequency as necessary. Thank you.
[2022-04-22] MEDS ORDERED: guaiFENesin 600 MG TABCR PO PRN (13:27)
[2022-04-22] MEDS ORDERED: SODIUM CHLOR 7% 4 ML NEB NEB PRN (15:14)
[2022-04-22] MEDS: HYDROmorphone INJ 1 MG/ML SYRINGE IV PRN ×2 (19:50→23:18)
[2022-04-22] MEDS: SERTRALINE HCL 50 MG TABLET PO SCH (21:56)
[2022-04-22] MEDS: oxyCODONE HCL IR 5 MG TAB (IMMEDIATE RELEASE) PO PRN (22:46)
[2022-04-22] MEDS: ONDANSETRON 4 MG OD TAB PO PRN (22:52)
[2022-04-23] MEDS: SODIUM CHLORIDE 0.45 % 1,000 ML IV SCH (02:19)
[2022-04-23] MEDS: HYDROmorphone INJ 1 MG/ML SYRINGE IV PRN (03:37)
[2022-04-23] MEDS: VANCOMYCIN HCL 1,500 MG in SODIUM CHLORIDE 0.9% 500 ML IV SCH (03:38)
[2022-04-23] MEDS: CEFEPIME 2,000 MG in SYRINGE 0 ML IV SCH ×2 (03:38→09:14)
[2022-04-23] MEDS: ACETAMINOPHEN 500 MG TAB PO SCH ×2 (06:21→08:18)
[2022-04-23 07:22] LABS: Basophils # (auto) 0.03 K/uL (0-0.2); Basophils % (auto) 0.2 %; Eosinophils # (auto) 0.47 K/uL (0-0.50); Eosinophils % (auto) 3.6 %; Hematocrit (blood only) 25.2 % (34.1-44.9); Hemoglobin 9.1 g/dl (12.0-16.0); Immature Granulocytes # (auto) 0.15 K/uL (0.00-0.02); Immature Granulocytes % (auto) 1.1 %; Lymphocytes # (auto) 1.89 K/uL (1.2-3.4); Lymphocytes % (auto) 14.3 %; Mean Corpuscular Hemoglobin 30.5 pg (25.0-34.0); Mean Corpuscular Hgb Conc 36.1 g/dL (32.0-36.0); Mean Corpuscular Volume 84.6 fL (80.0-100.0); Mean Platelet Volume 9.4 fL (9.4-12.3); Monocytes # (auto) 2.22 K/uL (0.24-0.82); Monocytes % (auto) 16.8 %; Neutrophils # (auto) 8.44 K/uL (1.4-6.5); Nucleated RBC # (auto) 0.02 K/uL (0-0); Nucleated RBC % (auto) 0.2 %; Platelet Count 317 K/uL (130-400); RDW Coefficient of Variation 14.8 % (11.5-14.5); Red Blood Count 2.98 M/uL (3.93-5.22); Reticulocyte % 5.1 % (0.5-2.0); Reticulocytes # 0.15 10^6/uL (0.02-0.10)
--- NOTE | 2022-04-23 07:28 | Hospitalist Progress Note ---
Date of Service April 23, 2022 Assessment & Plan (1) Sickle cell disease with crisis: Plan: Kaylan is a 22 year old female with history of sickle cell disease (most recently hospitalized in November) who presented to the emergency department 04/14 with chief concern of cough and generalized body pain. Patient was admitted for suspected Sickle Cell Crisis and Leukocytosis. Sickle Cell Crisis (likely 2/2 recent COVID 19 infection) - Pain in left knee, same location as prior sickle cell crisis - Transfer to [facility] did get get approved by insurance - Pain regimen: plan to switch from basal and pushes to just pushes - Plan for 2mg Dilaudid q3 prn for severe pain, 5mg oxycodone q4 prn for moderate pain - Continue with heat/lidocaine patches for knee as they are tolerated. PT consulted. - Currently receiving Miralax and Senokot, added Milk of Mag to assist patient with moving bowels (last BM 04/12) - Continue 1/2 NS 150 ml/hr - Hgb 10.5 (baseline mid 10-11s) - No current outpatient management of SCD - consider hydroxyurea as outpatient Leukocytosis (considered 2/2 steroids vs infection vs stress) - WBC 15.26 (down from 21.85 04/19) - Patient afebrile Pneumonia - CT-Chest 04/18 showed small left and trace right pleural effusions -CXR 04/20 consistent with prior; shows small left and trace right pleural effusions and bilateral airspace opacities which may represent atelectasis, pneumonia, and/or aspiration, less likely acute chest syndrome - repeat CXR shows Interval resolution of the pleural effusions and near- complete resolution of the left basilar airspace opacity. - Completed 5 day course of Azithromycin; will continue vancomycin and cepeime for a total of 7 days - switch to oral ciprofloxacin for a total of 7 days COVID-19 - Symptoms began 04/14, and have since resolved - Paxlovid x 5 days (begun 04/15) - Pt. has had COVID-19 before, for which she was hospitalized x2 weeks. Asthma - Albuterol nebulizer q6h scheduled - Given dexamethasone 6 mg on 04/15 for wheezing, which improved her air movement but worsened SCD pain, steroids discontinued - Prescribed Breo (fluticasone/vilanterol) in replacement of home Symbicort. Breo currently being held due to steroid component in addition to interaction with Paxlovid. Anxiety - Continue home Sertraline 75 mg qhs (2) COVID-19 virus infection: (3) Anxiety: (4) Asthma: Plan Fluids: 1/2 NS 150 ml/hr DVT ppx: SCDs Diet: Regular Code: Full Dispo: [facility], pending financial approval, est. Thursday Admission and Anticipated Discharge Date Admission Date: April 14, 2022 Mikey Kimbrough is a 22 year old female with history of sickle cell disease (most recently hospitalized in November) who presented to the emergency department 04/14 with chief concern of cough and generalized body pain. Patient was admitted for suspected Sickle Cell Crisis and Leukocytosis. She is resting comfortably this morning. Still has some mild left knee pain that is worse with ambulation. Says that her pain is relatively well controlled on current regimen. 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 Physical Exam Physical Exam: Constitutional: well-appearing, no acute distress HEENT: NCAT, no conjunctival injection CV: regular rhythm, no murmur appreciated, extremities well-perfused, no LE edema Resp: CTABL, no wheezes/rales/rhonchi appreciated, no increased work of breathing GI: soft, nondistended, nontender, BS normoactive MSK: no gross deformities appreciated. Mild tenderness to palpation of left knee. Normal range of motion. No rashes or lesions. No edema/erythema. Skin: warm, dry, no rash appreciated Neuro: alert, oriented, no focal neurologic deficit appreciated Results & Data Results & Data ([facility]) Vital Signs (Past 12 Hours) Vital Signs Temp Pulse Pulse Resp BP BP Pulse Ox 04/23/22 07:11 101 H 04/23/22 05:18 36.3 C L 99 H 18 108/72 99 04/22/22 22:19 122 H 04/22/22 22:50 37.0 C 107 H 20 118/70 100 04/22/22 19:42 100 H 18 139/97 100 O2 Del Method 04/23/22 07:11 04/23/22 05:18 Room Air 04/22/22 22:19 04/22/22 22:50 Room Air 04/22/22 19:42 Room Air
[2022-04-23 07:45] LABS: Alanine Aminotransferase 39 U/L (7-52); Albumin Globulin Ratio 1.2 (0.9-2); Albumin Level 3.6 gm/dl (3.4-5.0); Alkaline Phosphatase 56 U/L (34-104); Anion Gap 5 (3-11); Aspartate Aminotransferase 36 U/L (13-39); BUN Creatinine Ratio 19.1 (10-20); Bilirubin,Total 0.6 mg/dl (0.2-1.0); Blood Urea Nitrogen 9 mg/dl (6-23); Carbon Dioxide 25 mmol/L (21-32); Chloride 102 mmol/L (98-107); Creatinine Clr Calc Pharmacy 184.1 ml/min; Est GFR (African American) > 150.0 ml/min; Est GFR (Non-African American) 141.2 ml/min; Globulin 3.1 gm/dl (2.5-4.0); Glucose 105 mg/dl (70-99(Fasting)); Potassium 4.2 mmol/L (3.5-5.1); Sodium 132 mmol/L (136-145); Total Protein 6.7 gm/dl (6.0-8.3)
[2022-04-23] MEDS: oxyCODONE HCL IR 5 MG TAB (IMMEDIATE RELEASE) PO PRN (08:17)
[2022-04-23] MEDS: LIDOCAINE 5% 1 PATCH TD SCH ×2 (08:18)
[2022-04-23] MEDS: POLYETHYLENE (MIRALAX) 17 GM PACK PO SCH (08:18)
[2022-04-23] MEDS: SENNA 8.6 MG TAB PO SCH (08:20)
[2022-04-23] MEDS: FOLIC ACID 1 MG TAB PO SCH (09:14)
[2022-04-23] MEDS ORDERED: VANCOMYCIN LEVEL ONE (11:00)
--- NOTE | 2022-04-23 11:01 | Discharge Summary ---
Date of Service April 23, 2022 Admission HPI Per Admitting Provider Kaylan is a 22 year old woman with a history of sickle cell disease (most recently hospitalized in November) who presents today with cough and generalized body pain x1 day. She was in her usual state of health today when she abruptly began coughing. She used albuterol, which helped for a time before wearing off. However, she began to experience generalized pain, worst in her hips and lower back, so she decided to come in to be evaluated. She denies fever, chills, hemoptysis, pleuritic chest pain, wheeze, fatigue, nausea, vomiting, dysgeusia, or dysuria. She denies sick contacts. She is vaccinated ([employer]) but not boosted. ER course was notable for a positive COVID-19 test. CXR showed bibasilar opacities (no acute infectious process on radiology report). She received a 1L normal saline bolus and started on maintenance fluids. She also received Dilaudid for pain management.Allergies Admission Exam Per Admitting Provider General: Slightly ill-appearing, but otherwise alert, interactive, and in no acute distress. HEENT: Normocephalic, atraumatic. EOM intact. Good conjugate gaze. Nares patent. Moist mucosal membranes. Neck: Supple. No lymphadenopathy. Normal ROM. CV: Regular rate and rhythm. Normal S1 and S2. No murmurs gallops or rubs. Respiratory: Normal respiratory effort. Lungs clear to auscultation bilaterally. No crackles, rhonchi, or wheezes. Abdomen: Soft, nondistended abdomen. No bruits heard on auscultation. No tenderness to deep palpation. No guarding or rebound. Extremities: Capillary refill <2 sec. 2+ dp equal bilaterally. No pedal edema. Neuro: Alert and oriented x3. Skin: Clean, dry, and intact. No rashes, bruises, or erythema. Principal Diagnosis Sickle cell pain crisis Discharge Exam Constitutional: well-appearing, no acute distress HEENT: NCAT, no conjunctival injection CV: regular rhythm, no murmur appreciated, extremities well-perfused, no LE edema Resp: CTABL, no wheezes/rales/rhonchi appreciated, no increased work of breathing GI: soft, nondistended, nontender, BS normoactive MSK: no gross deformities appreciated. Mild tenderness to palpation of left knee. Normal range of motion. No rashes or lesions. No edema/erythema. Skin: warm, dry, no rash appreciated Neuro: alert, oriented, no focal neurologic deficit appreciated Discharge Data Allergies Allergy/AdvReac Type Severity Reaction Status Date / Time peanut Allergy Intermediate ITCHY HIVES Verified 04/14/22 19:29 Ordered Studies 04/18/22 10:57 CT chest diagnostic wo con Stat CT OF THE CHEST WITHOUT IV CONTRAST CLINICAL HISTORY: Bibasilar opacities. Sickle cell. COMPARISON STUDY: Chest radiographs April 14, 2022 and April 18, 2022. CT DOSE: 169.92 mGy.cm TECHNIQUE: Axial images of the chest were obtained without IV contrast. Images were reviewed in the axial, sagittal, and coronal planes. IV contrast was not administered for this examination. Automated exposure control was utilized for the study. A dose lowering technique was utilized adhering to the principles of ALARA. FINDINGS: No enlarged axillary, mediastinal or hilar lymph nodes are present. The size of the heart is normal. There is slight decreased attenuation of the cardiac blood pool. Small left and trace right pleural effusions are noted. There are mild bilateral lower lobe airspace opacities, greater on the left. There is no cavitation. Central airways are patent. There is no pneumothorax. No acute fracture or suspicious lesion within the bony thorax is noted. Visualized portions of the upper abdomen are unremarkable. IMPRESSION: Small left and trace right pleural effusions. Mild bilateral lower lobe airspace opacities, greater within the left lower lobe. These opacities are nonspecific and may reflect pneumonia or less likely atelectasis. Although less likely, acute chest syndrome could appear similar given history of sickle cell disease. Hospital Course (1) Sickle cell disease with crisis: Kaylan is a 22 year old female with history of sickle cell disease (most recently hospitalized in November) who presented to the emergency department 04/14 with chief concern of cough and generalized body pain. Patient was admitted for suspected Sickle Cell Crisis and Leukocytosis. Sickle Cell Crisis (likely 2/2 recent COVID 19 infection) - She presented with pain in her left knee which is same location she has gotten pain with prior sickle cell crisis. Initially there was concerns that she could progress to Acute Chest Syndrome as she also had COVID-19 and pneumonia. We discussed treatments with her doctors at [facility], but ultimately she did not need transfer. - We controlled her pain with TRAFFIC ANALYSIS TECHNICIAN pump that had to eventually be escalated to basal dosing with pushes, but we were able to ween her to 5mg oxycodone q6. We has not had a bowel movement in about a week, she was on an extensive bowel regimen which she will continue as an out patient. She was also treat with fluids. - Her hemoglobin remained stable around her baseline of 10-11. Her reticulocyte % was initially elevated, but has been trending down. Her bilirubin was also initially elevated, but has been trending down. - She has provided with crutches per PT to help with ambulating relating to left knee pain - No current outpatient management of SCD - consider hydroxyurea as outpatient Pneumonia - CT-Chest 04/18 showed small left and trace right pleural effusions and chest x- ray indicative of pneumonia. She was treated treated broadly because of concern for progression to Acute Chest syndrome with vancomycin and cefepime for 6 days in addition to 5 days of azithromycin. Will will get 1 day of ciprofloxacin upon discharge to complete a total course of 7 days. - She initially had a leukocytosis, which has since trending down. COVID-19 - Symptoms began 04/14, and have since resolved - Paxlovid x 5 days (begun 04/15) - Pt. has had COVID-19 before, for which she was hospitalized x2 weeks. Asthma - Albuterol nebulizer q6h scheduled - Given dexamethasone 6 mg on 04/15 for wheezing, which improved her air movement but worsened SCD pain, steroids discontinued due to sickle cell diseae - Prescribed Breo (fluticasone/vilanterol) in replacement of home Symbicort. Breo currently being held due to steroid component in addition to interaction with Paxlovid. Anxiety - Continue home Sertraline 75 mg qhs (2) COVID-19 virus infection: (3) Anxiety: (4) Asthma: Plan Fluids: / NS 150 ml/hr DVT ppx: SCDs Diet: Regular Code: Full Dispo: [facility], pending financial approval, est. Thursday Total Time Total Time Spent Total Time Spent (In Minutes): 35 Discharge Plan Discharge Items Patient Disposition: Home - Self-Care Reason For Visit: COUGH, SICKLE CELL PAIN CRISIS Discharge Diagnosis: sickle cell vaso occlusive pain crisis multifocal pneumonia COVID-19 Activity: Per Instructions section Non-emergency contact: Primary Care Provider Call non-emergency contact if: you have any medication questions, your symptoms worsen, your pain is not controlled and you have a fever Follow-up/Referrals: [facility] [Primary Care Provider] - Diet: Regular Addtl Attending Provider Instructions: You were admitted to the hospital for sickle cell pain crisis, COVID-19 and pneumonia. For the pain crisis we treated you with pain medications and fluids. We will be discharging you on oral pain medications. You should continue to drink plenty of fluids and avoid any strenuous activity for the next couple of weeks. The pain medication can cause constipation, so we will also send For the COVID-19 you were treated for 5 days of Paxlovid. You were also treated with antibiotics for pneumonia. We would like to treat your pneumonia for a total of 7 days. You received 6 days in the hospital of antibiotics, we will send a prescription to your pharmacy for one more day. The antibiotic we are sending has a side effect of tendon rupture, which most commonly occurs in the Achilles tendon. Aviod any stretching or strenuous activity. A discharge summary will be sent to your primary care physician to ensure continuity of care. Please bring this discharge summary with you to your next office appointment so that your provider can review it at that time. Follow-up appointments: Make a follow-up appointment with your PCP within the next week. It is very important that you follow up with them shortly after discharge from the hospital. . Medications: Your medication list has been reviewed and reconciled upon discharge to ensure accuracy and continuity of care. An updated list of all your medications is included with your hospital discharge paperwork. Please review this list closely, and make note of any changes. We sent a new medication called oxycodone to your pharmacy. Take oxycodone 5mg 1 tablet as needed for pain up to every 6 hours. We sent a new medication called ciprofloxacin to your pharmacy. Take ciprofloxacin 500mg twice a day for 1 day. - We also sent a number of medications that you can use for constipation. If you have any issues filling these prescriptions, please call [phone] and ask to leave a message for Dr. Jacobson. Take your medications as instructed; do not skip a dose of your medicines. Make sure all of your doctors know every medicine you are taking (including [id number] medicines, vitamins, and supplements). Call your primary care provider before taking any new medicines (including over- the-counter medicines, vitamins, and supplements), because some of these may interact with your current medications, or may make your symptoms worse. Tell your primary care provider if you cannot afford your medications. CONTACT YOUR PRIMARY CARE PROVIDER if you experience any of the following: Uncontrolled pain If your constipation does not resolve Difficulty following your treatment plan, or difficulty taking medications CALL 911 OR GO TO THE EMERGENCY DEPARTMENT if you experience any of the following: Chest Pain or shortness of breath Fever or Chills Pending Studies at Discharge: No Stand-Alone Forms: [facility], Sm[facility] Cessation Medications and DC Order Prescriptions: New sennosides [Senokot] 8.6 mg Tablet 17.2 mg PO QAM 30 Days Qty: 60 0RF polyethylene glycol 3350 [Miralax] 17 gram Powder In Packet 17 g PO DAILY 30 Days Qty: 30 0RF magnesium hydroxide [Milk of Magnesia] 400 mg/5 mL Suspension 30 ml PO Q6H PRN (Reason: constipation) 30 Days Qty: 355 0RF ciprofloxacin HCl 500 mg tablet 500 mg PO BID 1 Days Qty: 2 0RF oxycodone 5 mg tablet 5 mg PO Q6H MDD 20 mg PRN (Reason: pain) 5 Days Qty: 30 0RF Continued cetirizine 10 mg tablet 10 mg PO HS ergocalciferol (vitamin D2) 1,250 mcg (50,000 unit) capsule 50,000 unit PO WK Rx Instructions: TAKES ON SATURDAYS sertraline 25 mg tablet 75 mg PO HS folic acid 1 mg tablet 1 mg PO DAILY acetaminophen 325 mg tablet 650 mg PO DIRECTED PRN (Reason: Pain) ondansetron 4 mg tablet,disintegrating 4 - 8 mg PO Q8H PRN (Reason: nausea and vomiting) Qty: 14 0RF Discharge Orders: Discharge Order (Routine); Ordered 04/23/22 Ordered By: Cuba Drake Admission Data Admit Date/Time: 04/14/22 20:53 Attending Provider: Kings Neal Admit Provider: Azucena Rand Primary Care Provider: [facility] Other Providers: Steven Rodgers Other Interventions: Discharge Summary Assessment (RN) Last Done: 04/23/22 13:50 Supervising Physician Co-Signing Physician Notes Attending attestation Pt seen and examined in concert with Dr. Jacobson. In agreement with the documented findings as noted in the resident documentation with any exceptions or additions as noted here. Pain well controlled with transition to oxycodone 5mg PO without use of breakthrough. Ongoing left knee pain which worsens with ambulation/WB and patient requesting assistive device for safety/comfort. Nursing notes, VS reviewed. On examination, S1/S2 nl RRR no MCG. CTAB. Abd NT/ND BS+ve, no TTP or swelling of the LLE appreciated. Sickle cell disease, in crisis - transitioned to oxycodone 5mg q6h PRN and crutches provided. Close follow up with SCD team at [facility] in the setting of COVID-19, asthma - complete course of ciprofloxacin x 1 day. Avoiding steroids of all delivery 2/2 SCD Else see resident documentation as noted. Total attending physician time spent with this patient's care on the day of discharge: 35 minutes.
== END 2022-04-23 14:46 | disposition home or self-care (01) | DRG 811 ==
LOC: ED 16:47 → SUATTDRO 20:53 → 2W 20:53

== ENCOUNTER 2022-06-08 16:07 | Observation (INO) ==
[2022-06-08 17:10] LABS: Basophils # (auto) 0.07 K/uL (0-0.2); Basophils % (auto) 0.9 %; Hematocrit (blood only) 28.9 % (34.1-44.9); Hemoglobin 10.7 g/dl (12.0-16.0); Immature Granulocytes # (auto) 0.01 K/uL (0.00-0.02); Immature Granulocytes % (auto) 0.1 %; Lymphocytes # (auto) 2.44 K/uL (1.2-3.4); Lymphocytes % (auto) 32.9 %; Mean Corpuscular Hemoglobin 29.9 pg (25.0-34.0); Mean Corpuscular Volume 80.7 fL (80.0-100.0); Mean Platelet Volume 9.1 fL (9.4-12.3); Monocytes # (auto) 1.23 K/uL (0.24-0.82); Monocytes % (auto) 16.6 %; Neutrophils # (auto) 3.36 K/uL (1.4-6.5); Neutrophils % (auto) 45.5 %; Nucleated RBC # (auto) 0.07 K/uL (0-0); Nucleated RBC % (auto) 0.9 %; Platelet Count 240 K/uL (130-400); RDW Coefficient of Variation 15.9 % (11.5-14.5); Red Blood Count 3.58 M/uL (3.93-5.22); White Blood Count 7.41 K/ul (4.8-10.8)
[2022-06-08 17:21] LABS: Partial Thromboplastin Ratio 0.9; Partial Thromboplastin Time 25.1 Seconds (21.0-31.0); Prothrombin Time 10.8 Seconds (9.0-12.0)
[2022-06-08] MEDS ORDERED: SODIUM CHLORIDE 0.9% 1000ML 2,000 ML IV ONE (17:26)
[2022-06-08] MEDS ORDERED: MoRPHine SULFATE 10 MG/ML CARP/VIAL IV STA (17:26)
[2022-06-08 17:28] LABS: Alanine Aminotransferase 16 U/L (7-52); Albumin Globulin Ratio 1.3 (0.9-2); Alkaline Phosphatase 51 U/L (34-104); Anion Gap 6 (3-11); Aspartate Aminotransferase 24 U/L (13-39); BUN Creatinine Ratio 13.6 (10-20); Bilirubin,Total 1.3 mg/dl (0.2-1.0); Blood Urea Nitrogen 8 mg/dl (6-23); Calcium 9.1 mg/dl (8.5-10.1); Carbon Dioxide 24 mmol/L (21-32); Chloride 107 mmol/L (98-107); Creatinine Clr Calc Pharmacy 146.7 ml/min; Est GFR (African American) > 150.0 ml/min; Glucose 86 mg/dl (70-99(Fasting)); Potassium 3.9 mmol/L (3.5-5.1); Sodium 137 mmol/L (136-145)
--- NOTE | 2022-06-08 17:32 | Emergency Department Note ---
Impression & Plan Sickle cell disease, Parainfluenza, Back pain ED Provider Note NAME: SYMONE SAN AGE: 22 SEX: F : 2000 ARRIVES VIA: Walk-In INFORMANT: Patient ED PROVIDER(S): Patrick Stoll DO CHIEF COMPLAINT: pain HPI: Patient is a 22-year-old female from [facility] with hematology for her sickle cell disease who presents the ER for pain in her lower back and left knee. She notes it is difficult for her to describe where the pain is but it is in the lower back region. She denies any chest pain but does admit to a cough which started 2 days ago. She denies any runny nose or sore throat. No shortness of breath. She does have some pain in her left knee as well. Denies any weakness or numbness in the arms or legs. She did vomit once this morning after vomiting multiple times. No other exacerbating or remitting factors. ROS: See above HPI for pertinent positives & negatives. A total of 10 systems reviewed and were otherwise negative. PAST MEDICAL HISTORY:See Below PAST SURGICAL HISTORY:See Below FAMILY HISTORY:See Below SOCIAL HISTORY:See Below HOME MEDICATIONS:See Below ALLERGIES:See Below VITALS:See Below PHYSICAL EXAMINATION: GENERAL: Sitting up in bed, alert, well appearing, well nourished, no distress, non-toxic, persistent cough EYE EXAM: normal conjunctiva. OROPHARYNX: no exudate, no erythema, lips, buccal mucosa, and tongue normal and mucous membranes are moist NECK: supple, no nuchal rigidity, no adenopathy, non-tender LUNGS: Clear to auscultation. Normal chest wall mechanics HEART: no murmurs, S1 normal and S2 normal ABDOMEN: abdomen soft, non-tender, normo-active bowel sounds, no masses, no rebound or guarding. BACK: Back is symmetrical on inspection and there is no deformity, no midline tenderness, no CVA tenderness. UPPER EXTREMITIES: upper extremities are grossly normal. LOWER EXTREMITIES: Flexion-extension of the hips knees ankles and EHL intact. No swelling of either knee. DPs and PTs 2 out of 4. Gross sensation intact. NEURO EXAM: Normal sensorium, cranial nerves II-XII grossly intact, normal sp eech, no gross weakness of arms, no gross weakness of legs. MEDICAL DECISION MAKING: Patient is a 22-year-old female who presents ER for the boasting complaint. IV was established blood work was obtained. Labs show no significant leukocytosis. Mild anemia 10.7. CMP was unremarkable. Viral panel was obtained and positive for parainfluenza. Chest x-ray unremarkable. X-ray of the lumbar spine and left knee was unremarkable. Patient was given 6 mg of morphine as well as 2mg of Dilaudid. Patient was seen and evaluated by the hospitalist admitted for further work-up as she had continued pain. Triage Nursing notes reviewed. Limited review of prior medical records performed Vital Signs: reviewed and remarkable for HTN Differential diagnosis: Musculoskeletal, disc herniation, fracture, metastatic disease, cord compression, discitis, sciatica, cauda equina, infection, aortic disease, renal colic, gastrointestinal, as well as other pathologies. ER treatment provided: See below Diagnostics interpreted by me: ECG: none Cardiac Monitoring: An order was placed for continuous cardiac monitoring. The monitor shows a rate of 92 with sinus rhythm. Laboratory studies: As stated above and show below. Imaging studies: X-rays of the lumbar spine knee and chest were unremarkable Consultation(s): Discussed with Adriana Rodriguez for further evaluation Procedures: none Critical Care: None Past Med/Surg History Medical History Anxiety Constipation COVID-19 Influenza A Leukocytosis Pneumonia Pyelonephritis Seasonal allergies Sepsis Sepsis Sickle cell anemia Sickle cell anemia with crisis Sickle cell crisis Sickle cell crisis Splenomegaly Transaminitis Vaginal ulceration Surgical History No pertinent past surgical history Family History Brother Sickle cell anemia Other No significant family history Social History Smoking Status: Never smoker Second Hand Exposure: No; Hx Alcohol Use: No Hx Substance Use: No Preferred Language: Jordanian Communication Ability: Effective 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 Beliefs That Will Affect Care: None marital status: Single Current Living Situation: Other Current Living Situation Comment: [place] Feels Safe at Home: Yes Assistive Devices: Nebulizer Allergies Allergies Allergy/AdvReac Type Severity Reaction Status Date / Time peanut Allergy Intermediate ITCHY HIVES Verified 04/14/22 19:29 Home Meds Home Medications Medication Instructions Recorded Confirmed cetirizine 10 mg tablet 10 mg PO HS 04/18/20 04/14/22 ergocalciferol (vitamin D2) 1,250 50,000 unit PO WK 04/18/20 04/14/22 mcg (50,000 unit) capsule sertraline 25 mg tablet 75 mg PO HS 07/02/21 04/14/22 folic acid 1 mg tablet 1 mg PO DAILY 08/01/21 04/14/22 acetaminophen 325 mg tablet 650 mg PO DIRECTED PRN Pain 12/13/21 04/14/22 Previous Rx's Medication Instructions Recorded ondansetron 4 mg disintegrating 4 - 8 mg PO Q8H PRN nausea and 02/28/21 tablet vomiting #14 tabs Results & Data (ED) Vital Signs Vital Signs - 24 hr 06/08/22 16:13 06/08/22 18:28 Temperature 36.8 C Temperature Source Temporal Artery Scan Pulse Rate 102 H Pulse Rate [Finger] 95 H Respiratory Rate 20 16 Respiratory Effort / Characteristics Non-Labored Spontaneous Non-Labored Spontaneous Respiratory Depth Normal Normal Respiratory Pattern Regular Regular Blood Pressure 120/68 Blood Pressure [Right Arm] 119/80 Blood Pressure Mean 85 Blood Pressure Mean [Right Arm] 93 Blood Pressure Position [Right Arm] Sitting Pulse Oximetry 99 100 Oxygen Delivery Method Room Air Room Air Sepsis Recent Fever Within 48 Hours No Sepsis New/Unexplained Change in Mental Status No Sepsis Action Taken by Nursing No Action Required Laboratory Data Result diagrams: 06/08/22 16:55 06/08/22 16:55 Lab Results 06/08/22 06/08/22 06/08/22 Range/Units 16:55 16:55 16:55 WBC 7.41 (4.8-10.8) K/ul RBC 3.58 L (3.93-5.22) M/uL Hgb 10.7 L (12.0-16.0) g/dl Hct 28.9 L (34.1-44.9) % MCV 80.7 (80.0-100.0) fL MCH 29.9 (25.0-34.0) pg MCHC 37.0 H (32.0-36.0) g/dL RDW Std Deviation 46.0 (36.4-46.3) fL RDW Coeff of Ksahif 15.9 H (11.5-14.5) % Plt Count 240 (130-400) K/uL MPV 9.1 L (9.4-12.3) fL Immature Gran % (Auto) 0.1 % Neut % (Auto) 45.5 % Lymph % (Auto) 32.9 % [place] % (Auto) 16.6 % Eos % (Auto) 4.0 % Baso % (Auto) 0.9 % Reticulocyte % (Auto) (0.5-2.0) % Neut # (Auto) 3.36 (1.4-6.5) K/uL Lymph # (Auto) 2.44 (1.2-3.4) K/uL [place] # (Auto) 1.23 H (0.24-0.82) K/uL Eos # (Auto) 0.30 (0-0.50) K/uL Baso # (Auto) 0.07 (0-0.2) K/uL Reticulocyte # (0.02-0.10) 10^6/uL Immature Gran # (Auto) 0.01 (0.00-0.02) K/uL Absolute Nucleated RBC 0.07 H (0-0) K/uL Nucleated RBC % (auto) 0.9 % Peripher Smr Path Cons PT 10.8 (9.0-12.0) Seconds INR 1.0 (0.9-1.1) APTT 25.1 (21.0-31.0) Seconds PTT Ratio 0.9 Sodium 137 (136-145) mmol/L Potassium 3.9 (3.5-5.1) mmol/L Chloride 107 (98-107) mmol/L Carbon Dioxide 24 (21-32) mmol/L Anion Gap 6 (3-11) BUN 8 (6-23) mg/dl Creatinine 0.59 L (0.6-1.2) mg/dl Est Cr Clr Drug Dosing 146.7 ml/min Est GFR ( Amer) > 150.0 ml/min Est GFR (Non-Af Amer) 131.0 ml/min BUN/Creatinine Ratio 13.6 (10-20) Glucose 86 (70-99(Fasting)) mg/dl Calcium 9.1 (8.5-10.1) mg/dl Total Bilirubin 1.3 H (0.2-1.0) mg/dl AST 24 (13-39) U/L ALT 16 (7-52) U/L Alkaline Phosphatase 51 (34-104) U/L Lactate Dehydrogenase (86-244) U/L Total Protein 7.0 (6.0-8.3) gm/dl Albumin 4.0 (3.4-5.0) gm/dl Globulin 3.0 (2.5-4.0) gm/dl Albumin/Globulin Ratio 1.3 (0.9-2) Adenovirus (PCR) (NotDetected) B. pertussis DNA (PCR) (NotDetected) B.parapertussis DNA PCR (NotDetected) C. pneumoniae DNA (PCR) (NotDetected) Coronavirus OC43 (PCR) (NotDetected) Coronavirus HKU1 (PCR) (NotDetected) Coronavirus 229E (PCR) (NotDetected) SARS-CoV-2 (PCR) (NotDetected) Coronavirus NL63 (PCR) (NotDetected) Human Metapneumovir PCR (NotDetected) Influenza Type A (PCR) (NotDetected) Influenza Type B (PCR) (NotDetected) M. pneumoniae (PCR) (NotDetected) Parainfluenza 1 (PCR) (NotDetected) Parainfluenza 2 (PCR) (NotDetected) Parainfluenza 3 (PCR) (NotDetected) Parainfluenza 4 (PCR) (NotDetected) RSV (PCR) (NotDetected) Entero/Rhino (PCR) (NotDetected) 06/08/22 06/08/22 06/08/22 Range/Units 16:55 16:55 16:55 WBC (4.8-10.8) K/ul RBC (3.93-5.22) M/uL Hgb (12.0-16.0) g/dl Hct (34.1-44.9) % MCV (80.0-100.0) fL MCH (25.0-34.0) pg MCHC (32.0-36.0) g/dL RDW Std Deviation (36.4-46.3) fL RDW Coeff of Kashif (11.5-14.5) % Plt Count (130-400) K/uL MPV (9.4-12.3) fL Immature Gran % (Auto) % Neut % (Auto) % Lymph % (Auto) % [place] % (Auto) % Eos % (Auto) % Baso % (Auto) % Reticulocyte % (Auto) 5.8 H (0.5-2.0) % Neut # (Auto) (1.4-6.5) K/uL Lymph # (Auto) (1.2-3.4) K/uL [place] # (Auto) (0.24-0.82) K/uL Eos # (Auto) (0-0.50) K/uL Baso # (Auto) (0-0.2) K/uL Reticulocyte # 0.21 H (0.02-0.10) 10^6/uL Immature Gran # (Auto) (0.00-0.02) K/uL Absolute Nucleated RBC (0-0) K/uL Nucleated RBC % (auto) % Peripher Smr Path Cons Cancelled PT (9.0-12.0) Seconds INR (0.9-1.1) APTT (21.0-31.0) Seconds PTT Ratio Sodium (136-145) mmol/L Potassium (3.5-5.1) mmol/L Chloride (98-107) mmol/L Carbon Dioxide (21-32) mmol/L Anion Gap (3-11) BUN (6-23) mg/dl Creatinine (0.6-1.2) mg/dl Est Cr Clr Drug Dosing ml/min Est GFR ( Amer) ml/min Est GFR (Non-Af Amer) ml/min BUN/Creatinine Ratio (10-20) Glucose (70-99(Fasting)) mg/dl Calcium (8.5-10.1) mg/dl Total Bilirubin (0.2-1.0) mg/dl AST (13-39) U/L ALT (7-52) U/L Alkaline Phosphatase (34-104) U/L Lactate Dehydrogenase 290 H (86-244) U/L Total Protein (6.0-8.3) gm/dl Albumin (3.4-5.0) gm/dl Globulin (2.5-4.0) gm/dl Albumin/Globulin Ratio (0.9-2) Adenovirus (PCR) (NotDetected) B. pertussis DNA (PCR) (NotDetected) B.parapertussis DNA PCR (NotDetected) C. pneumoniae DNA (PCR) (NotDetected) Coronavirus OC43 (PCR) (NotDetected) Coronavirus HKU1 (PCR) (NotDetected) Coronavirus 229E (PCR) (NotDetected) SARS-CoV-2 (PCR) (NotDetected) Coronavirus NL63 (PCR) (NotDetected) Human Metapneumovir PCR (NotDetected) Influenza Type A (PCR) (NotDetected) Influenza Type B (PCR) (NotDetected) M. pneumoniae (PCR) (NotDetected) Parainfluenza 1 (PCR) (NotDetected) Parainfluenza 2 (PCR) (NotDetected) Parainfluenza 3 (PCR) (NotDetected) Parainfluenza 4 (PCR) (NotDetected) RSV (PCR) (NotDetected) Entero/Rhino (PCR) (NotDetected) 06/08/22 Range/Units 18:36 WBC (4.8-10.8) K/ul RBC (3.93-5.22) M/uL Hgb (12.0-16.0) g/dl Hct (34.1-44.9) % MCV (80.0-100.0) fL MCH (25.0-34.0) pg MCHC (32.0-36.0) g/dL RDW Std Deviation (36.4-46.3) fL RDW Coeff of Kashif (11.5-14.5) % Plt Count (130-400) K/uL MPV (9.4-12.3) fL Immature Gran % (Auto) % Neut % (Auto) % Lymph % (Auto) % [place] % (Auto) % Eos % (Auto) % Baso % (Auto) % Reticulocyte % (Auto) (0.5-2.0) % Neut # (Auto) (1.4-6.5) K/uL Lymph # (Auto) (1.2-3.4) K/uL [place] # (Auto) (0.24-0.82) K/uL Eos # (Auto) (0-0.50) K/uL Baso # (Auto) (0-0.2) K/uL Reticulocyte # (0.02-0.10) 10^6/uL Immature Gran # (Auto) (0.00-0.02) K/uL Absolute Nucleated RBC (0-0) K/uL Nucleated RBC % (auto) % Peripher Smr Path Cons PT (9.0-12.0) Seconds INR (0.9-1.1) APTT (21.0-31.0) Seconds PTT Ratio Sodium (136-145) mmol/L Potassium (3.5-5.1) mmol/L Chloride (98-107) mmol/L Carbon Dioxide (21-32) mmol/L Anion Gap (3-11) BUN (6-23) mg/dl Creatinine (0.6-1.2) mg/dl Est Cr Clr Drug Dosing ml/min Est GFR ( Amer) ml/min Est GFR (Non-Af Amer) ml/min BUN/Creatinine Ratio (10-20) Glucose (70-99(Fasting)) mg/dl Calcium (8.5-10.1) mg/dl Total Bilirubin (0.2-1.0) mg/dl AST (13-39) U/L ALT (7-52) U/L Alkaline Phosphatase (34-104) U/L Lactate Dehydrogenase (86-244) U/L Total Protein (6.0-8.3) gm/dl Albumin (3.4-5.0) gm/dl Globulin (2.5-4.0) gm/dl Albumin/Globulin Ratio (0.9-2) Adenovirus (PCR) Not Detected (NotDetected) B. pertussis DNA (PCR) Not Detected (NotDetected) B.parapertussis DNA PCR Not Detected (NotDetected) C. pneumoniae DNA (PCR) Not Detected (NotDetected) Coronavirus OC43 (PCR) Not Detected (NotDetected) Coronavirus HKU1 (PCR) Not Detected (NotDetected) Coronavirus 229E (PCR) Not Detected (NotDetected) SARS-CoV-2 (PCR) Not Detected (NotDetected) Coronavirus NL63 (PCR) Not Detected (NotDetected) Human Metapneumovir PCR Not Detected (NotDetected) Influenza Type A (PCR) Not Detected (NotDetected) Influenza Type B (PCR) Not Detected (NotDetected) M. pneumoniae (PCR) Not Detected (NotDetected) Parainfluenza 1 (PCR) DETECTED A* (NotDetected) Parainfluenza 2 (PCR) Not Detected (NotDetected) Parainfluenza 3 (PCR) Not Detected (NotDetected) Parainfluenza 4 (PCR) Not Detected (NotDetected) RSV (PCR) Not Detected (NotDetected) Entero/Rhino (PCR) Not Detected (NotDetected) Administered Medications Discontinued Medications Hydromorphone HCl (Hydromorphone Inj 0.5 Mg/0.5 Ml Syr) 0.5 mg IV NOW STA Stop: 06/08/22 18:31 Last Admin: 06/08/22 18:43 Dose: 0.5 mg Documented By: PRICE Hydromorphone HCl (Hydromorphone Inj 0.5 Mg/0.5 Ml Syr) 0.5 mg IV NOW STA Stop: 06/08/22 19:09 Last Admin: 06/08/22 19:24 Dose: 0.5 mg Documented By: BHAVIK Hydromorphone HCl (Hydromorphone Inj 1 Mg/Ml Syringe) 1 mg IV NOW STA Stop: 06/08/22 20:11 Last Admin: 06/08/22 20:40 Dose: 1 mg Documented By: CHARIS Sodium Chloride (Nss 1000ml) 2,000 mls @ 999 mls/hr IV .Q2H1M ONE Stop: 06/08/22 19:26 Last Admin: 06/08/22 17:39 Dose: 999 mls/hr Documented By: SUAD Morphine Sulfate (Morphine Sulfate 10 Mg/Ml Carp/Vial) 6 mg IV NOW STA Stop: 06/08/22 17:27 Last Admin: 06/08/22 17:38 Dose: 6 mg Documented By: SUAD Imaging Data Radiologist's Impression: Knee X-Ray 06/08/22 17:26 LEFT KNEE 3 VIEWS CLINICAL HISTORY: Left knee pain. FINDINGS: AP, crosstable lateral, and sunrise views of the left knee are obtained. No prior studies are available for comparison at the time of dictation. The skeletal structures are well mineralized. No fracture is seen. The joint spaces of the knee are maintained. There is no joint effusion. The ove rlying soft tissues are within normal limits. IMPRESSION: No acute bony abnormality is identified. Electronically signed by: Lakhwinder Syed M.D. 06/08/2022 6:57 PM Lumbar Spine X-Ray 06/08/22 17:26 LUMBAR SPINE 3 VIEWS CLINICAL HISTORY: Low back pain. FINDINGS: 3 views of the lumbar spine are 07/05/2021. The skeletal structures are well mineralized. There is no radiographic evidence of fracture or m alalignment. Vertebral body height and alignment are maintained. The transverse and spinous processes are intact. The intervertebral disc spaces are well- maintained. The visualized bony pelvis appears intact. There is a nonobstructed abdominal bowel gas pattern. Moderate fecal retention is noted in the colon. IMPRESSION: No bony abnormality is seen involving the lumbar spine. ACT 112: Negative or not required by law. Electronically signed by: Lakhwinder Syed M.D. 06/08/2022 6:59 PM Chest X-Ray 06/08/22 17:28 SINGLE VIEW CHEST CLINICAL HISTORY: Cough. FINDINGS: An AP, portable, upright chest radiograph is compared to study dated 04/22/2022 and correlated with chest CT dated 04/18/2022. The cardiomediastinal silhouette is unremarkable. The lungs and pleural spaces are clear. No pneumothorax is seen. The bony thorax is grossly intact. IMPRESSION: No acute cardiopulmonary abnormality. ACT 112: Negative or not required by law. Electronically signed by: Lakhwinder Syed M.D. 06/08/2022 6:56 PM Discharge Plan Visit Data Chief Complaint: Pain (Generalized) Stated Complaint: SICKLE CELL RELATED PAIN ED Provider: Patrick Stoll Discharge Problem: Sickle cell disease, Parainfluenza, Back pain Forms Stand Alone Forms: My [facility]eld Prescriptions Prescriptions: No Action cetirizine 10 mg tablet 10 mg PO HS ergocalciferol (vitamin D2) 1,250 mcg (50,000 unit) capsule 50,000 unit PO WK Rx Instructions: TAKES ON SATURDAYS sertraline 25 mg tablet 75 mg PO HS folic acid 1 mg tablet 1 mg PO DAILY acetaminophen 325 mg tablet 650 mg PO DIRECTED PRN (Reason: Pain) ondansetron 4 mg tablet,disintegrating 4 - 8 mg PO Q8H PRN (Reason: nausea and vomiting) Qty: 14 0RF Referrals Referrals: [facility] [Primary Care Provider] -
[2022-06-08] MEDS ORDERED: HYDROmorphone INJ 0.5 MG/0.5 ML SYR IV STA ×2 (18:30→19:08)
[2022-06-08 18:44] LABS: Reticulocyte % 5.8 % (0.5-2.0); Reticulocytes # 0.21 10^6/uL (0.02-0.10)
--- NOTE | 2022-06-08 18:57 | XRay Report ---
SINGLE VIEW CHEST CLINICAL HISTORY: Cough. FINDINGS: An AP, portable, upright chest radiograph is compared to study dated 04/22/2022 and correlate d with chest CT dated 04/18/2022. The cardiomediastinal silhouette is unremarkable. The lungs and pleur al spaces are clear. No pneumothorax is seen. The bony thorax is grossly intact. IMPRESSION: No acute cardiopulmonary abnormality. ACT 112: Negative or not required by law. Electronically signed by: Lakhwinder Seyd M.D. 06/08/2022 6:56 PM
--- NOTE | 2022-06-08 18:59 | XRay Report ---
LEFT KNEE 3 VIEWS CLINICAL HISTORY: Left knee pain. FINDINGS: AP, crosstable lateral, and sunrise views of the left knee are obtained. No prior studies a re available for comparison at the time of dictation. The skeletal structures are well mineralized. N o fracture is seen. The joint spaces of the knee are maintained. There is no joint effusion. The over lying soft tissues are within normal limits. IMPRESSION: No acute bony abnormality is identified. Electronically signed by: Lakhwinder Syed M.D. 06/08/2022 6:57 PM
--- NOTE | 2022-06-08 19:00 | XRay Report ---
LUMBAR SPINE 3 VIEWS CLINICAL HISTORY: Low back pain. FINDINGS: 3 views of the lumbar spine are 07/05/2021. The skeletal structures are well mineralized. There is no radiographic evidence of fracture or malalignment. Vertebral body height and alignment ar e maintained. The transverse and spinous processes are intact. The intervertebral disc spaces are we ll-maintained. The visualized bony pelvis appears intact. There is a nonobstructed abdominal bowel ga s pattern. Moderate fecal retention is noted in the colon. IMPRESSION: No bony abnormality is seen involving the lumbar spine. ACT 112: Negative or not required by law. Electronically signed by: Lakhwinder Syed M.D. 06/08/2022 6:59 PM
--- NOTE | 2022-06-08 19:25 | History & Physical Report ---
Date of Service June 08, 2022 Assessment & Plan (1) Sickle cell disease with crisis: Plan: 22yo female with history of sickle cell anemia, frequent hospital admissions for acute pain crisis presents with acute pain crisis ongoing for the last 1-2 days. She has had a mild cough (is positive for Parainfluenza virus on BioFire). Denies fever, chest pain or shortness of breath. She follow with Hematology in [place] and is trying to establish with a local systems administration analyst as well. She has an appointment in mid-August. She is to start on crizanlizumab-tmca (ADAKVEO) infusions next week in hopes of reducing the frequency of her sickle cell pain crises. This has been set up by her Hematology team in [place]. She has to travel home for these infusions. H/H is presently 10.7/28.8 with 5.8% reticulocytes. Tbili of 1.3 -Admit to Medical with telemetry -Supplemental O2 as needed to maintain saturation > 92% -Hydration with 1/2 NSS at 80mL/hr -Pain control with Dilaudid 0.5mg IV q 2 hours as needed. Adjust dosing as needed -Bowel regimen with Senna qAM, PRN Colace and Miralax -Avoid Toradol and NSAIDS - may increase risk for DELROY in patient with acute vaso-occlusive pain event -Continue Folic Acid -Consider discussing with Hematology and Infusion center if patient can receive her ADAKVEO locally rather than traveling (2) Asthma: Plan: Well controlled. No SOB or wheeze at present -Albuterol PRN (3) Anxiety: Plan: Chronic. -Continue Sertraline 75mg po qHS F/E/N - 1/2 NSS at 80mL/hr, monitor electrolytes and replete as needed, regular diet as tolerated Ppx - Low risk for DVT Code - Full Dispo - Admit to medical with telemetry History of Present Illness Chief Complaint: Generalized pain Primary Care Provider: [facility] Kaylan is a 22 year old woman with a history of sickle cell disease (Recently admitted last month for sickle cell crisis), asthma, covid 19 infection last month, anxiety who presented to the [facility] ED on 06/08/22 with generalized pain. In the ED the patient was found to be afebrile, hemodynamically stable, stable on room air. Labs were remarkable for WBC WNL, stable Hgb at 10.7, HCT at 28.9, MCHC at 37.0, RDW of 15.9, stable kidney function, total bili of 1.3, stable liver function, biofire is in process. Chest xray was negative for acute findings. Lumbar spine xray and xray of the left knee were negative for acute findings. At the time of the exam the patient was resting comfortably in bed in no acute distress, she was talking to her friend on facetime during portions of my exam. She states that she began experiencing a cough, left knee pain, and low back pain approximately 1-2 days ago. She denies any fevers, chills, SOB, chest pain, abdominal pain, dysuria, hematuria, or recent trauma. She states that her pain was initially an 8/10 when it started. Since coming to the ED and receiving the morphine and dilaudid she states that her pain is currently a 6/10. 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 She experienced on episode of nausea and vomiting yesterday but is still able to eat and drink. Allergies Allergy/AdvReac Type Severity Reaction Status Date / Time peanut Allergy Intermediate ITCHY HIVES Verified 04/14/22 19:29 Home Medications Medication Instructions Recorded Confirmed Type cetirizine 10 mg tablet 10 mg PO HS 04/18/20 04/14/22 History ergocalciferol (vitamin D2) 1,250 50,000 unit PO WK 04/18/20 04/14/22 History mcg (50,000 unit) capsule ondansetron 4 mg disintegrating 4 - 8 mg PO Q8H PRN nausea and 02/28/21 04/14/22 Rx tablet vomiting #14 tabs sertraline 25 mg tablet 75 mg PO HS 07/02/21 04/14/22 History folic acid 1 mg tablet 1 mg PO DAILY 08/01/21 04/14/22 History acetaminophen 325 mg tablet 650 mg PO DIRECTED PRN Pain 12/13/21 04/14/22 History Past Med/Surg History Medical History Anxiety Constipation COVID-19 Influenza A Leukocytosis Pneumonia Pyelonephritis Seasonal allergies Sepsis Sepsis Sickle cell anemia Sickle cell anemia with crisis Sickle cell crisis Sickle cell crisis Splenomegaly Transaminitis Vaginal ulceration Surgical History No pertinent past surgical history Family History Brother Sickle cell anemia Other No significant family history Social History Smoking Status: Never smoker Second Hand Exposure: No; Hx Alcohol Use: No Hx Substance Use: No Preferred Language: Lao Communication Ability: Effective Crisis Worker Required: No Beliefs That Will Affect Care: None marital status: Single Current Living Situation: Other Current Living Situation Comment: Roomates Feels Safe at Home: Yes Assistive Devices: Nebulizer Review of Systems Review of Systems: Denies current fever, chills, headache, changes in vision, hearing, taste, and smell, chest pain, SOB, abdominal pain, nausea, vomiting, diarrhea, hematemesis, melena, dysuria, hematuria, and recent falls. All systems have been reviewed and are otherwise negative. Physical Exam Physical Exam: General: patient uncomfortable but in NAD, AA&O x 4 Skin: warm, dry, intact, no rashes or lesions HEENT: NC/AT, PERRL, EOMI, anicteric sclera, conjunctiva without injection, external ear normal to inspection and nontender, nares patent, moist mucus membranes, dentition intact, no oropharyngeal lesions, neck supple, trachea midline, no LAD, no thyromegaly, no JVD Heart: +S1/S2, regular, no m/r/g Lungs: equal air entry bilaterally, no rales/rhonchi/wheezes Abd: +BS, soft, NT/ND, no masses/organomegaly/ascites Ext: warm, 2+ pulses in UE/LE bilaterally, no clubbing/cyanosis or edema Neuro: nonfocal, patient AA&O x 4, speech intact, no facial droop, moving all extremities on command with equal strength 5/5 Results & Data Results & Data ([facility]) Vital Signs (Past 12 Hours) Vital Signs Temp Pulse Pulse Resp BP BP Pulse Ox 06/08/22 18:28 95 H 16 119/80 100 06/08/22 16:13 36.8 C 102 H 20 120/68 99 O2 Del Method 06/08/22 18:28 Room Air 06/08/22 16:13 Room Air Laboratory Results Abnormal lab results 06/08/22 06/08/22 06/08/22 Range/Units 16:55 16:55 16:55 RBC 3.58 L (3.93-5.22) M/uL Hgb 10.7 L (12.0-16.0) g/dl Hct 28.9 L (34.1-44.9) % MCHC 37.0 H (32.0-36.0) g/dL RDW Coeff of Kashif 15.9 H (11.5-14.5) % MPV 9.1 L (9.4-12.3) fL Reticulocyte % (Auto) 5.8 H (0.5-2.0) % Kingfisher # (Auto) 1.23 H (0.24-0.82) K/uL Reticulocyte # 0.21 H (0.02-0.10) 10^6/uL Absolute Nucleated RBC 0.07 H (0-0) K/uL Creatinine 0.59 L (0.6-1.2) mg/dl Total Bilirubin 1.3 H (0.2-1.0) mg/dl Diagnostic Findings Knee X-Ray 06/08/22 17:26 LEFT KNEE 3 VIEWS CLINICAL HISTORY: Left knee pain. FINDINGS: AP, crosstable lateral, and sunrise views of the left knee are obtained. No prior studies are available for comparison at the time of dictation. The skeletal structures are well mineralized. No fracture is seen. The joint spaces of the knee are maintained. There is no joint effusion. The overlying soft tissues are within normal limits. IMPRESSION: No acute bony abnormality is identified. Electronically signed by: Lakhwinder Syed M.D. 06/08/2022 6:57 PM Lumbar Spine X-Ray 06/08/22 17:26 LUMBAR SPINE 3 VIEWS CLINICAL HISTORY: Low back pain. FINDINGS: 3 views of the lumbar spine are 07/05/2021. The skeletal structures are well mineralized. There is no radiographic evidence of fracture or malalignment. Vertebral body height and alignment are maintained. The transverse and spinous processes are intact. The intervertebral disc spaces are well- maintained. The visualized bony pelvis appears intact. There is a nonobstructed abdominal bowel gas pattern. Moderate fecal retention is noted in the colon. IMPRESSION: No bony abnormality is seen involving the lumbar spine. ACT 112: Negative or not required by law. Electronically signed by: Lakhwinder Syed M.D. 06/08/2022 6:59 PM Chest X-Ray 06/08/22 17:28 SINGLE VIEW CHEST CLINICAL HISTORY: Cough. FINDINGS: An AP, portable, upright chest radiograph is compared to study dated 04/22/2022 and correlated with chest CT dated 04/18/2022. The cardiomediastinal silhouette is unremarkable. The lungs and pleural spaces are clear. No pneumothorax is seen. The bony thorax is grossly intact. IMPRESSION: No acute cardiopulmonary abnormality. ACT 112: Negative or not required by law. Electronically signed by: Lakhwinder Syed M.D. 06/08/2022 6:56 PM Code Status & VTE Plan Code Status Full code VTE Prophylaxis Plan VTE Prophylaxis will be ordered: Yes Supervising Physician Co-Signing Physician Notes patient seen and examined, chart reviewed, case discussed with FRANCES Irizarry and I agree with the assessment and plan as above Physical exam as above - entered by me Plan as above PG Care Time/CCT Total # of Minutes Spent Total Time Spent with Patient: Total time spent is greater than 50% in coordination of care (as documented) at patient's floor/unit and/or counseling patient: Coding Level of Care Code 82946 Initial Inpt Care Lvl 2 Diagnoses Sickle cell disease with crisis D57.00 Asthma J45.909 Anxiety F41.9
[2022-06-08 20:02] LABS: Adenovirus PCR Not Detected (NotDetected); Bordetella parapertussis PCR Not Detected (NotDetected); Bordetella pertussis PCR Not Detected (NotDetected); Chlamydia pneumoniae PCR Not Detected (NotDetected); Coronavirus 229E PCR Not Detected (NotDetected); Coronavirus CoV-2 (COVID19)PCR Not Detected (NotDetected); Coronavirus HKU1 PCR Not Detected (NotDetected); Coronavirus NL63 PCR Not Detected (NotDetected); Coronavirus OC43PCR Not Detected (NotDetected); Human Metapneumovirus PCR Not Detected (NotDetected); Influenza A PCR Not Detected (NotDetected); Influenza B PCR Not Detected (NotDetected); Mycoplasma pneumoniae PCR Not Detected (NotDetected); Parainfluenza Virus 2 PCR Not Detected (NotDetected); Parainfluenza Virus 3 PCR Not Detected (NotDetected); Parainfluenza Virus 4 PCR Not Detected (NotDetected); Respiratory Syncytial VirusPCR Not Detected (NotDetected); Rhinovirus/Enterovirus PCR Not Detected (NotDetected)
[2022-06-08 20:07] LABS: Parainfluenza Virus 1 PCR DETECTED (NotDetected)
[2022-06-08] MEDS ORDERED: HYDROmorphone INJ 1 MG/ML SYRINGE IV STA ×2 (20:10→20:15)
[2022-06-08] MEDS ORDERED: ALBUTEROL HFA 8 GM INHALER INH PRN (22:40)
[2022-06-08] MEDS ORDERED: POLYETHYLENE (MIRALAX) 17 GM PACK PO PRN (22:40)
[2022-06-08] MEDS ORDERED: DOCUSATE SODIUM 100 MG CAP PO PRN (22:40)
[2022-06-08] MEDS ORDERED: SODIUM CHLORIDE 0.45 % 1,000 ML IV SCH (22:40)
[2022-06-08] MEDS: HYDROmorphone INJ 0.5 MG/0.5 ML SYR IV PRN (23:48)
[2022-06-09] MEDS: ALBUT/IPRATROP 3MG/0.5MG NEB 3 ML VIAL NEB PRN ×4 (00:01→15:10)
[2022-06-09] MEDS: HYDROmorphone INJ 0.5 MG/0.5 ML SYR IV PRN ×5 (01:48→12:31)
[2022-06-09] MEDS ORDERED: ONDANSETRON INJ 2 MG/ML 2 ML VIAL IV PRN (05:11)
[2022-06-09 06:44] LABS: Hematocrit (blood only) 25.6 % (34.1-44.9); Hemoglobin 9.4 g/dl (12.0-16.0); Mean Corpuscular Hemoglobin 29.7 pg (25.0-34.0); Mean Corpuscular Hgb Conc 36.7 g/dL (32.0-36.0); Mean Corpuscular Volume 80.8 fL (80.0-100.0); Mean Platelet Volume 9.4 fL (9.4-12.3); Nucleated RBC # (auto) 0.05 K/uL (0-0); Nucleated RBC % (auto) 0.7 %; Platelet Count 235 K/uL (130-400); RDW Coefficient of Variation 15.8 % (11.5-14.5); RDW Standard Deviation 46.1 fL (36.4-46.3); Red Blood Count 3.17 M/uL (3.93-5.22); White Blood Count 7.09 K/ul (4.8-10.8)
[2022-06-09 07:14] LABS: Alanine Aminotransferase 14 U/L (7-52); Albumin Level 3.7 gm/dl (3.4-5.0); Alkaline Phosphatase 47 U/L (34-104); Anion Gap 3 (3-11); Aspartate Aminotransferase 21 U/L (13-39); BUN Creatinine Ratio 8.3 (10-20); Bilirubin Direct 0.2 mg/dl (0-0.2); Bilirubin,Total 1.1 mg/dl (0.2-1.0); Blood Urea Nitrogen 4 mg/dl (6-23); Calcium 8.6 mg/dl (8.5-10.1); Carbon Dioxide 24 mmol/L (21-32); Chloride 109 mmol/L (98-107); Creatinine Clr Calc Pharmacy 180.3 ml/min; Est GFR (African American) > 150.0 ml/min; Est GFR (Non-African American) 140.2 ml/min; Glucose 95 mg/dl (70-99(Fasting)); Potassium 3.8 mmol/L (3.5-5.1); Sodium 136 mmol/L (136-145); Total Protein 6.1 gm/dl (6.0-8.3)
--- NOTE | 2022-06-09 07:29 | Hospitalist Progress Note ---
Date of Service June 09, 2022 Assessment & Plan (1) Sickle cell disease with crisis: Plan: 22yo female with history of sickle cell anemia, frequent hospital admissions for acute pain crisis presents with acute pain crisis ongoing for the last 1-2 days. She has had a mild cough (is positive for Parainfluenza virus on BioFire). Denies fever, chest pain or shortness of breath. She follow with Hematology in [place] and is trying to establish with a local aircraft engine mechanic overhaul as well. She has an appointment in mid-August. She is to start on crizanlizumab-tmca (ADAKVEO) infusions next week in hopes of reducing the frequency of her sickle cell pain crises. This has been set up by her Hematology team in [place]. She has to travel home for these infusions. H/H is presently 10.7/28.8 with 5.8% reticulocytes. Tbili of 1.3 -Admit to Medical with telemetry -Supplemental O2 as needed to maintain saturation > 92% -Hydration with 1/2 NSS at 80mL/hr -Pain control with Dilaudid 0.5mg IV q 2 hours as needed. Adjust dosing as needed -Bowel regimen with Senna qAM, PRN Colace and Miralax -Avoid Toradol and NSAIDS - may increase risk for DELROY in patient with acute vaso-occlusive pain event -Continue Folic Acid -Consider discussing with Hematology and Infusion center if patient can receive her ADAKVEO locally rather than traveling (2) Asthma: Plan: Well controlled. No SOB or wheeze at present -Albuterol PRN (3) Anxiety: Plan: Chronic. -Continue Sertraline 75mg po qHS F/E/N - 1/2 NSS at 80mL/hr, monitor electrolytes and replete as needed, regular diet as tolerated Ppx - Low risk for DVT Code - Full Dispo - Admit to medical with telemetry Admission and Anticipated Discharge Date Admission Date: June 08, 2022 Results & Data Results & Data ([facility]) Vital Signs (Past 12 Hours) Vital Signs Temp Pulse Pulse Resp BP BP Pulse Ox 06/09/22 06:39 36.6 C 91 H 20 120/74 100 06/09/22 04:39 85 14 98 06/09/22 04:35 36.8 C 83 20 108/73 99 06/08/22 22:44 79 06/08/22 22:36 97 H 06/09/22 00:02 90 18 96 06/08/22 23:34 06/08/22 23:34 36.8 C 82 18 113/77 97 06/08/22 23:00 94 06/08/22 22:11 36.8 C 82 18 113/77 97 06/08/22 22:03 78 14 122/75 98 O2 Del Method 06/09/22 06:39 Room Air 06/09/22 04:39 Room Air 06/09/22 04:35 Room Air 06/08/22 22:44 06/08/22 22:36 06/09/22 00:02 Room Air 06/08/22 23:34 Room Air 06/08/22 23:34 Room Air 06/08/22 23:00 Room Air 06/08/22 22:11 Room Air 06/08/22 22:03 Room Air
[2022-06-09 08:22] LABS: Reticulocyte % 6.2 % (0.5-2.0); Reticulocytes # 0.2 10^6/uL (0.02-0.10)
[2022-06-09] MEDS ORDERED: FLUARIX QUADRIVALENT 0.5 ML SYR IM ONE (09:00)
[2022-06-09] MEDS ORDERED: SENNA 8.6 MG TAB PO SCH (09:00)
[2022-06-09] MEDS ORDERED: oxyCODONE/ACETAMINOPHEN 5mg/325mg TAB PO PRN (13:14)
--- NOTE | 2022-06-09 15:43 | Discharge Summary ---
Date of Service June 09, 2022 Admission HPI Per Admitting Provider Kaylan is a 22 year old woman with a history of sickle cell disease (Recently admitted last month for sickle cell crisis), asthma, covid 19 infection last month, anxiety who presented to the [facility] ED on 06/08/22 with generalized pain. In the ED the patient was found to be afebrile, hemodynamically stable, stable on room air. Labs were remarkable for WBC WNL, stable Hgb at 10.7, HCT at 28.9, MCHC at 37.0, RDW of 15.9, stable kidney function, total bili of 1.3, stable liver function, biofire is in process. Chest xray was negative for acute findings. Lumbar spine xray and xray of the left knee were negative for acute findings. At the time of the exam the patient was resting comfortably in bed in no acute distress, she was talking to her friend on facetime during portions of my exam. She states that she began experiencing a cough, left knee pain, and low back pain approximately 1-2 days ago. She denies any fevers, chills, SOB, chest pain, abdominal pain, dysuria, hematuria, or recent trauma. She states that her pain was initially an 8/10 when it started. Since coming to the ED and receiving the morphine and dilaudid she states that her pain is currently a 6/10. 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 She experienced on episode of nausea and vomiting yesterday but is still able to eat and drink. Admission Exam Per Admitting Provider General: patient uncomfortable but in NAD, AA&O x 4 Skin: warm, dry, intact, no rashes or lesions HEENT: NC/AT, PERRL, EOMI, anicteric sclera, conjunctiva without injection, external ear normal to inspection and nontender, nares patent, moist mucus membranes, dentition intact, no oropharyngeal lesions, neck supple, trachea midline, no LAD, no thyromegaly, no JVD Heart: +S1/S2, regular, no m/r/g Lungs: equal air entry bilaterally, no rales/rhonchi/wheezes Abd: +BS, soft, NT/ND, no masses/organomegaly/ascites Ext: warm, 2+ pulses in UE/LE bilaterally, no clubbing/cyanosis or edema Neuro: nonfocal, patient AA&O x 4, speech intact, no facial droop, moving all extremities on command with equal strength 5/5 Principal Diagnosis Sickle Cell Pain Crisis Discharge Exam Constitutional WD/WN, vitals as above Eyes PERRL, conjunctivae normal, anicteric sclerae ENMT external ear and nose normal, oropharynx normal Neck trachea midline, no thyromegaly Respiratory normal respiratory effort, lungs clear to auscultation Cardiovascular RRR, no murmur, no edema Gastrointestinal (Abdomen) Inspection/Auscultation: abdomen normal to inspection Percussion/Palpation: abdomen soft; abdomen nontender Skin no rashes, warm and dry Discharge Data Allergies Allergy/AdvReac Type Severity Reaction Status Date / Time peanut Allergy Intermediate ITCHY HIVES Verified 04/14/22 19:29 Hospital Course (1) Sickle cell disease with crisis: 22yo female with history of sickle cell anemia, frequent hospital admissions for acute pain crisis presents with acute pain crisis ongoing for the last 1-2 days. She has had a mild cough (is positive for Parainfluenza virus on BioFire). Denies fever, chest pain or shortness of breath. She follow with Hematology in [place] and is trying to establish with a local flash ranging crewmember as well. She has an appointment in mid-August. She is to start on crizanlizumab-tmca (ADAKVEO) infusions next week in hopes of reducing the frequency of her sickle cell pain crises. This has been set up by her Hematology team in [place]. She has to travel home for these infusions. -Discharged with Oxycodone 5mg q4hr PRN (15 tabs total) (1) Sickle Cell Pain Crisis -Admitted to Medical with telemetry -H/H on admit10.7/28.8 with 5.8% reticulocytes. Tbili of 1.3 -tolerated room air well -given IVF -Pain control with Dilaudid 0.5mg IV q 2 hours PRN, later adjusted to Oxycodone 5mg q4hr PRN -Bowel regimen with Senna qAM, PRN Colace -Avoid Toradol and NSAIDS - may increase risk for DELROY in patient with acute vaso-occlusive pain event -Continue Folic Acid -patient recieves ADAKVEO in her home town on Thursday, no local infusion centers available (2) Asthma: Well controlled. No SOB or wheeze at present (3) Anxiety: Chronic. -Continue Sertraline 75mg po qHS (4) Parainfluenza -likely the trigger for her sickle cell pain crisis -ordered flutter valve (2) Asthma: (3) Anxiety: Total Time Total Time Spent Total Time Spent (In Minutes): <30 Discharge Plan Discharge Items Patient Disposition: Home - Self-Care Reason For Visit: SICKLE CELL PAIN CRISIS Discharge Diagnosis: Sickle Cell Pain Crisis Activity: Resume your previous activity Non-emergency contact: Primary Care Provider Call non-emergency contact if: you have any medication questions, your symptoms worsen, your pain is not controlled and you have a fever Follow-up/Referrals: [facility] [Primary Care Provider] - Diet: Regular Addtl Attending Provider Instructions: You were admitted to the hospital for Sickle Cell Pain Crisis. You were treated with IV fluids and dilaudid. It is likely your symptoms were set off by your recent viral illness. As your symptoms have improved, we will send you home with a pain medication called Oxycodone. You may take 1 pill as needed every 4 hours for pain control. If this is not enough to manage your pain, please return to the hospital. Please be sure to attend your Sickle Cell Treatment appointment this Thursday. A discharge summary will be sent to your primary care physician to ensure continuity of care. Please bring this discharge summary with you to your next office appointment so that your provider can review it at that time. Follow-up appointments: Make a follow-up appointment with your PCP within the next week. It is very important that you follow up with them shortly after discharge from the hospital. Keep all your follow-up appointments as already scheduled. If you cannot make an appointment, notify your provider. Medications: Your medication list has been reviewed and reconciled upon discharge to ensure accuracy and continuity of care. An updated list of all your medications is included with your hospital discharge paperwork. Please review this list closely, and make note of any changes. * We sent a new medication called Oxycodone to your pharmacy. Take Oxycodone 5mg one tablet every 4 hours as needed for pain. Take your medications as instructed; do not skip a dose of your medicines. Make sure all of your doctors know every medicine you are taking (including [id number] medicines, vitamins, and supplements). Call your primary care provider before taking any new medicines (including [id number] medicines, vitamins, and supplements), because some of these may interact with your current medications, or may make your symptoms worse. Tell your primary care provider if you cannot afford your medications. CONTACT YOUR PRIMARY CARE PROVIDER if you experience any of the following: Chest pain, abdominal pain Difficulty breathing Difficulty following your treatment plan, or difficulty taking medications CALL 911 OR GO TO THE EMERGENCY DEPARTMENT if you experience any of the following: Sudden, severe abdominal pain or nausea/vomiting Severe chest pain, or chest pain that radiates (moves) to your jaw or arm Sudden, severe shortness of breath or difficulty breathing Thank you for allowing us to participate in your care. Pending Studies at Discharge: No Stand-Alone Forms: My [facility] Hive guard unlimited, Smoking Cessation Medications and DC Order Prescriptions: New oxycodone 5 mg tablet 5 mg PO Q6H PRN (Reason: pain) Qty: 15 0RF Continued cetirizine 10 mg tablet 10 mg PO HS ergocalciferol (vitamin D2) 1,250 mcg (50,000 unit) capsule 50,000 unit PO WK Rx Instructions: TAKES ON SATURDAYS sertraline 25 mg tablet 75 mg PO HS folic acid 1 mg tablet 1 mg PO DAILY acetaminophen 325 mg tablet 650 mg PO DIRECTED PRN (Reason: Pain) ondansetron 4 mg tablet,disintegrating 4 - 8 mg PO Q8H PRN (Reason: nausea and vomiting) Qty: 14 0RF Discharge Orders: Discharge Order (Routine); Ordered 06/09/22 Ordered By: Misa Méndez Admission Data Admit Date/Time: 06/08/22 21:33 Attending Provider: Patrick Robin Admit Provider: Madiha Rodriguez Primary Care Provider: [facility] Other Providers: Madiha Rodriguez Other Interventions: Discharge Summary Assessment (RN) Last Done: 06/09/22 16:14 Supervising Physician Co-Signing Physician Notes I personally examined the patient and verified all knox points of history and exam, discussed case, and agree with decision making with Dr Méndez. Notes that she is feeling better and wants to go home. Notes that pain relief from Dilaudid is good, discussed that if she was going home it would likely be a pain medicine such as oxycodoneshe felt like that would probably do fine, wanted us to check in later in the afternoonat which time she still felt like she could go home. Discussed wanting to make sure pain will be under good control at homeshe noted that she felt like it would with oxycodone. Is set up for first dose of maintenance treatment for her sickle cell on Thursdayalready scheduled, she will have to travel home for it, but notes she will be able to get there. Vitals noted, in general she is awake and alert pleasant no distress. HEENT nor mocephalic atraumatic mucous membranes moist. Breathing unlabored no accessory muscle use good effort. Good air entry, very faint wheeze scattered throughout skin shows no rashes no pallor or icterus. Neuro without focal deficits. Sickle cell acute pain crisislikely precipitated by parainfluenza virus infectionclinically stable. Would like to go home, understands risk/benefit and change in pain regimen that she would be going home with, and feels like this will do well. To that respect, discharged home, close outpatient follow- up. Applauded her having maintenance treatment starting on Thursday, encouraged her to follow-up with this. Otherwise as above Resident Activity Tracking Resident Involvement: Resident Care Provided Care Provided: Adult Hospital Medicine
--- NOTE | 2022-06-09 17:12 | Billing Data ---
Date of Service June 09, 2022 Coding Level of Care Code D/C DAY MANAGEMENT <30 MINS
[2022-06-09] MEDS ORDERED: SERTRALINE HCL 50 MG TABLET PO SCH (21:00)
== END 2022-06-09 16:34 | disposition home or self-care (01) ==
LOC: ED 16:07 → SUATTDRO 21:33 → INTOOBSV 21:33 → 2W 21:33
DX: D57.00 Hb-SS disease with crisis, unspecified; Z91.010 Allergy to peanuts; Z79.899 Other long term (current) drug therapy

== ENCOUNTER 2022-06-30 09:35 | Observation (INO) ==
[2022-06-30] MEDS ORDERED: SODIUM CHLORIDE 0.9% 1000ML 2,000 ML IV ONE (09:50)
[2022-06-30 10:20] LABS: Basophils # (auto) 0.07 K/uL (0-0.2); Basophils % (auto) 1.2 %; Eosinophils # (auto) 0.13 K/uL (0-0.50); Eosinophils % (auto) 2.2 %; Hematocrit (blood only) 30.2 % (34.1-44.9); Hemoglobin 11.3 g/dl (12.0-16.0); Immature Granulocytes # (auto) 0.01 K/uL (0.00-0.02); Immature Granulocytes % (auto) 0.2 %; Lymphocytes # (auto) 1.47 K/uL (1.2-3.4); Lymphocytes % (auto) 24.7 %; Mean Corpuscular Hemoglobin 30.7 pg (25.0-34.0); Mean Corpuscular Hgb Conc 37.4 g/dL (32.0-36.0); Mean Corpuscular Volume 82.1 fL (80.0-100.0); Mean Platelet Volume 9.4 fL (9.4-12.3); Monocytes # (auto) 0.47 K/uL (0.24-0.82); Monocytes % (auto) 7.9 %; Neutrophils % (auto) 63.8 %; Nucleated RBC # (auto) 0.02 K/uL (0-0); Nucleated RBC % (auto) 0.3 %; Platelet Count 324 K/uL (130-400); RDW Coefficient of Variation 14.7 % (11.5-14.5); RDW Standard Deviation 43.1 fL (36.4-46.3); Red Blood Count 3.68 M/uL (3.93-5.22); Reticulocyte % 4.6 % (0.5-2.0); Reticulocytes # 0.17 10^6/uL (0.02-0.10); White Blood Count 5.95 K/ul (4.8-10.8)
[2022-06-30] MEDS ORDERED: HYDROmorphone INJ 0.5 MG/0.5 ML SYR IV STA ×2 (10:28→11:30)
[2022-06-30] MEDS ORDERED: ACETAMINOPHEN 1,000 MG/100 ML VIAL IV STA (10:28)
[2022-06-30 10:36] LABS: Pregnancy Test, Serum Negative (Negative)
[2022-06-30 10:40] LABS: Alanine Aminotransferase 11 U/L (7-52); Albumin Globulin Ratio 1.5 (0.9-2); Albumin Level 4.2 gm/dl (3.4-5.0); Alkaline Phosphatase 48 U/L (34-104); Anion Gap 5 (3-11); Aspartate Aminotransferase 18 U/L (13-39); BUN Creatinine Ratio 8.8 (10-20); Bilirubin,Total 1.4 mg/dl (0.2-1.0); Blood Urea Nitrogen 5 mg/dl (6-23); Calcium 9.6 mg/dl (8.5-10.1); Carbon Dioxide 25 mmol/L (21-32); Chloride 107 mmol/L (98-107); Creatinine Clr Calc Pharmacy 151.8 ml/min; Est GFR (African American) > 150.0 ml/min; Est GFR (Non-African American) 132.5 ml/min; Globulin 2.8 gm/dl (2.5-4.0); Glucose 114 mg/dl (70-99(Fasting)); Lipase 7 U/L (11-82); Magnesium 1.7 mg/dl (1.7-2.4); Phosphorus 3.4 mg/dl (2.5-4.9); Potassium 3.8 mmol/L (3.5-5.1); Sodium 137 mmol/L (136-145)
--- NOTE | 2022-06-30 10:41 | XRay Report ---
XR chest 1V portable HISTORY: Atypical chest pain. COMPARISON: Chest 06/08/2022. FINDINGS: The lungs are clear. Cardiac silhouette is normal in size. No pleural effusions. No pneumot horax. IMPRESSION: No acute process. ACT 112: Negative or not required by law. Electronically signed by: Vitor Waite M.D. 06/30/2022 10:40 AM
[2022-06-30] MEDS ORDERED: HYDROmorphone INJ 1 MG/ML SYRINGE IV STA (13:04)
--- NOTE | 2022-06-30 14:48 | Emergency Department Note ---
Impression & Plan Sickle cell disease with crisis ED Provider Note NAME: SYMONE SAN AGE: 22 SEX: F ARRIVES VIA: Walk-In INFORMANT: Patient ED PROVIDER(S): Armaan Godfrey MD CHIEF COMPLAINT: Sickle cell pain crisis PLAN: Disposition: Home MEDICAL DECISION MAKING: The patient is a pleasant 22-year-old woman with a past medical history of sickle cell disease who presents to the emergency department for evaluation of a sickle cell pain crisis where she reports worsening pain mostly in both legs but mostly in the right leg and this has been ongoing since Thursday when she was back home in [place] and received IV infusion ADAKVEO. She reports having a pain c risis immediately after infusion and understood that this can happen at times. She reports her pain got better after IV Dilaudid. She feels that maybe she then agreed for discharge prematurely as her pain later came back when she got home. She was managing her symptoms at home with oxycodone but then needed to return to school today. She denies any fevers, chills, cough, congestion, chest pain or shortness of breath. She denies any GI or symptoms. On arrival the patient is no acute distress, afebrile with heart in 100s and vital signs otherwise stable. She appears clinically dry. Exam is otherwise unremarkable EKG without overt acute ischemia. Chest x-ray negative for acute cardi opulmonary process. WBC and platelets within normal limits. H/H 11.3/30.2, improved from prior farideh ues. Chemistry without metabolic acidosis. Electrolytes and LFTs without significant abnormality. Lipase within normal limits. hCG was negative. The patient's reticulocyte count was mildly elevated at 0.17 which is on the lower end of the patient's prior range of values in the setting of her prior sickle cell pain crises. Patient was treated with IV fluid hydration, IV APAP and repeat doses of IV Dilaudid. Initially the patient was feeling some improvement where she felt after her third dose of IV Dilaudid she may be able to go home. However upon my reevaluation prior to her discharge she felt her pain was still at a 5/10 and felt she would benefit from admission for further management. Case d/w MAGDY Ledezma admitting resident with Dr. Wright, [facility] hospitalist, who will evaluate the patient for admission. Triage Nursing notes reviewed and agree them. Prior medical records reviewed Vital Signs: reviewed and remarkable for no significant abnormalities Differential diagnosis: Infection, dehydration, metabolic abnormality, hypo/hyperglycemia, electrolyte disturbance, anemia, hypoxia, cardiac sources, intracerebral event, toxicologic, neurologic, as well as other pathologies. ER treatment provided: See below. Diagnostics interpreted by me: ECG: Normal sinus rhythm, 88 bpm, no ectopy. nonspecific T wave abnormality, no overt ST ovation depression, QTC 396, QRS 66. Cardiac Monitoring: An order for continuous cardiac monitoring was placed and demonstrated Normal sinus rhythm, 88 bpm, no ectopy. Laboratory studies: See below Imaging studies: See below Consultation(s): Case d/w Dr. [place], [place] admitting resident with Dr. Wright, [facility] hospitalist, who will evaluate the patient for admission. HPI: The patient is a pleasant 22-year-old woman with a past medical history of sickle cell disease who presents to the emergency department for evaluation of a sickle cell pain crisis where she reports worsening pain mostly in both legs but mostly in the right leg and this has been ongoing since Thursday when she was back home in [place] and received IV infusion ADAKVEO. She reports having a pain crisis immediately after infusion and understood that this can happen at times. She reports her pain got better after IV Dilaudid. She feels that maybe she then agreed for discharge prematurely as her pain later came back when she got home. She was managing her symptoms at home with oxycodone but then needed to return to school today. She denies any fevers, chills, cough, congestion, chest pain or shortness of breath. She denies any GI or symptoms. ROS: See above HPI for pertinent positives & negatives. A total of 10 systems reviewed and were otherwise negative. VITALS:See Below PHYSICAL EXAMINATION: GENERAL: Awake, alert, well-appearing, in no distress HENT: Normocephalic, atraumatic. Oropharynx with dry mucous membranes and otherwise unremarkable. EYES: Normal conjunctiva. Sclera non-icteric. NECK: Supple. No nuchal rigidity. FROM. No JVD. RESPIRATORY: Clear to auscultation. CARDIAC: Regular rate, normal rhythm. Extremities warm and well perfused. Pulses equal. ABDOMEN: Soft, non-distended. No tenderness to palpation. No rebound or guarding. No masses. RECTAL: Deferred. MUSCULOSKELETAL: Chest examination reveals no tenderness. The back is symmetrical on inspection without obvious abnormality. There is no CVA tenderness to palpation. No joint edema. LOWER EXTREMITIES: Calves are equal size bilaterally and non-tender. No edema. No discoloration. NEURO: Normal sensorium. No sensory or motor deficits noted. SKIN: No rash or jaundice noted. Armaan Godfrey MD Past Med/Surg History Medical History Anxiety Constipation COVID-19 Influenza A Leukocytosis Pneumonia Pyelonephritis Seasonal allergies Sepsis Sepsis Sickle cell anemia Sickle cell anemia with crisis Sickle cell crisis Sickle cell crisis Splenomegaly Transaminitis Vaginal ulceration Surgical History No pertinent past surgical history Family History Brother Sickle cell anemia Social History Smoking Status: Never smoker Second Hand Exposure: No; Hx Alcohol Use: No Hx Substance Use: No Preferred Language: Chinese Communication Ability: Effective [place] Setter Required: No Beliefs That Will Affect Care: None marital status: Single Current Living Situation: Other Current Living Situation Comment: roomates Feels Safe at Home: Yes Safety Concerns: Feels Safe At This Time Assistive Devices: Glasses Allergies Allergies Allergy/AdvReac Type Severity Reaction Status Date / Time peanut Allergy Intermediate ITCHY HIVES Verified 06/30/22 15:14 Home Meds Home Medications Medication Instructions Recorded Confirmed cetirizine 10 mg tablet 10 mg PO HS 04/18/20 06/30/22 ergocalciferol (vitamin D2) 1,250 50,000 unit PO WK 04/18/20 06/30/22 mcg (50,000 unit) capsule sertraline 25 mg tablet 75 mg PO HS 07/02/21 06/30/22 folic acid 1 mg tablet 1 mg PO DAILY 08/01/21 06/30/22 acetaminophen 325 mg tablet 650 mg PO DIRECTED PRN Pain 12/13/21 06/30/22 crizanlizumab-tmca 10 mg/mL See Rx Instructions .Route .COMPLEX 06/30/22 06/30/22 intravenous solution (Adakveo) Previous Rx's Medication Instructions Recorded ondansetron 4 mg disintegrating 4 - 8 mg PO Q8H PRN nausea and 02/28/21 tablet vomiting #14 tabs oxycodone 5 mg tablet 5 mg PO Q6H PRN pain #15 tabs 06/09/22 Results & Data (ED) Vital Signs Vital Signs - 24 hr 06/30/22 09:38 06/30/22 10:10 06/30/22 10:30 Temperature 36.6 C Temperature Source Temporal Artery Scan Pulse Rate 100 H 88 87 Pulse Rate from SpO2 Sensor Respiratory Rate 18 17 17 Blood Pressure 116/63 Blood Pressure Mean 80 Pulse Oximetry 99 Oxygen Delivery Method Room Air Sepsis Recent Fever Within 48 Hours No Sepsis New/Unexplained Change in Mental Status No Sepsis Action Taken by Nursing No Action Required 06/30/22 11:00 06/30/22 11:30 06/30/22 12:00 Temperature Temperature Source Pulse Rate 85 79 77 Pulse Rate from SpO2 Sensor 84 79 78 Respiratory Rate 12 12 14 Blood Pressure Blood Pressure Mean Pulse Oximetry 99 100 100 Oxygen Delivery Method Sepsis Recent Fever Within 48 Hours Sepsis New/Unexplained Change in Mental Status Sepsis Action Taken by Nursing 06/30/22 12:30 06/30/22 13:00 06/30/22 13:01 Temperature Temperature Source Pulse Rate 79 92 H Pulse Rate from SpO2 Sensor 79 86 Respiratory Rate 16 15 Blood Pressure 102/60 Blood Pressure Mean 74 Pulse Oximetry 99 99 Oxygen Delivery Method Sepsis Recent Fever Within 48 Hours Sepsis New/Unexplained Change in Mental Status Sepsis Action Taken by Nursing 06/30/22 13:01 06/30/22 13:30 06/30/22 13:30 Temperature Temperature Source Pulse Rate 86 74 Pulse Rate from SpO2 Sensor Respiratory Rate 19 17 Blood Pressure 110/63 Blood Pressure Mean 78 Pulse Oximetry Oxygen Delivery Method Sepsis Recent Fever Within 48 Hours Sepsis New/Unexplained Change in Mental Status Sepsis Action Taken by Nursing 06/30/22 13:54 06/30/22 13:55 06/30/22 13:55 Temperature Temperature Source Pulse Rate 92 H 84 Pulse Rate from SpO2 Sensor 99 H 85 Respiratory Rate 19 15 Blood Pressure 111/51 L Blood Pressure Mean 71 Pulse Oximetry 91 99 Oxygen Delivery Method Sepsis Recent Fever Within 48 Hours Sepsis New/Unexplained Change in Mental Status Sepsis Action Taken by Nursing 06/30/22 14:00 06/30/22 14:30 06/30/22 15:00 Temperature Temperature Source Pulse Rate 84 Pulse Rate from SpO2 Sensor 87 95 H 79 Respiratory Rate 17 Blood Pressure Blood Pressure Mean Pulse Oximetry 95 90 99 Oxygen Delivery Method Sepsis Recent Fever Within 48 Hours Sepsis New/Unexplained Change in Mental Status Sepsis Action Taken by Nursing 06/30/22 15:30 06/30/22 16:00 06/30/22 16:00 Temperature Temperature Source Pulse Rate Pulse Rate from SpO2 Sensor 83 81 Respiratory Rate Blood Pressure 120/77 Blood Pressure Mean 91 Pulse Oximetry 82 L 99 Oxygen Delivery Method Sepsis Recent Fever Within 48 Hours Sepsis New/Unexplained Change in Mental Status Sepsis Action Taken by Nursing Laboratory Data Attestation: I reviewed the patient's lab results. Result diagrams: 06/30/22 10:00 06/30/22 10:00 Lab Results 06/30/22 06/30/22 06/30/22 Range/Units 10:00 10:00 10:00 WBC 5.95 (4.8-10.8) K/ul RBC 3.68 L (3.93-5.22) M/uL Hgb 11.3 L (12.0-16.0) g/dl Hct 30.2 L (34.1-44.9) % MCV 82.1 (80.0-100.0) fL MCH 30.7 (25.0-34.0) pg MCHC 37.4 H (32.0-36.0) g/dL RDW Std Deviation 43.1 (36.4-46.3) fL RDW Coeff of Kashif 14.7 H (11.5-14.5) % Plt Count 324 (130-400) K/uL MPV 9.4 (9.4-12.3) fL Immature Gran % (Auto) 0.2 % Neut % (Auto) 63.8 % Lymph % (Auto) 24.7 % [place] % (Auto) 7.9 % Eos % (Auto) 2.2 % Baso % (Auto) 1.2 % Reticulocyte % (Auto) 4.6 H (0.5-2.0) % Neut # (Auto) 3.80 (1.4-6.5) K/uL Lymph # (Auto) 1.47 (1.2-3.4) K/uL [place] # (Auto) 0.47 (0.24-0.82) K/uL Eos # (Auto) 0.13 (0-0.50) K/uL Baso # (Auto) 0.07 (0-0.2) K/uL Reticulocyte # 0.17 H (0.02-0.10) 10^6/uL Immature Gran # (Auto) 0.01 (0.00-0.02) K/uL Absolute Nucleated RBC 0.02 H (0-0) K/uL Nucleated RBC % (auto) 0.3 % Sodium 137 (136-145) mmol/L Potassium 3.8 (3.5-5.1) mmol/L Chloride 107 (98-107) mmol/L Carbon Dioxide 25 (21-32) mmol/L Anion Gap 5 (3-11) BUN 5 L (6-23) mg/dl Creatinine 0.57 L (0.6-1.2) mg/dl Est Cr Clr Drug Dosing 151.8 ml/min Est GFR ( Amer) > 150.0 ml/min Est GFR (Non-Af Amer) 132.5 ml/min BUN/Creatinine Ratio 8.8 L (10-20) Glucose 114 H (70-99(Fasting)) mg/dl Calcium 9.6 (8.5-10.1) mg/dl Phosphorus 3.4 (2.5-4.9) mg/dl Magnesium 1.7 (1.7-2.4) mg/dl Total Bilirubin 1.4 H (0.2-1.0) mg/dl AST 18 (13-39) U/L ALT 11 (7-52) U/L Alkaline Phosphatase 48 (34-104) U/L Total Protein 7.0 (6.0-8.3) gm/dl Albumin 4.2 (3.4-5.0) gm/dl Globulin 2.8 (2.5-4.0) gm/dl Albumin/Globulin Ratio 1.5 (0.9-2) Lipase 7 L (11-82) U/L HCG, Qual Negative (Negative) Administered Medications Acetaminophen (Acetaminophen 325 Mg Tab) 650 mg PO Q6H ROBYN Stop: 07/30/22 16:14 Last Admin: 06/30/22 21:17 Dose: 650 mg Documented By: Admin: 06/30/22 17:05 Dose: 650 mg Documented By: [id number] Cetirizine HCl (Cetirizine Hcl 10 Mg Tablet) 10 mg PO [facility] Stop: 07/30/22 20:59 Last Admin: 06/30/22 21:17 Dose: 10 mg Documented By: ALVERTO Hydromorphone HCl (Hydromorphone Inj 1 Mg/Ml Syringe) 1 mg IV Q3H PRN PRN Reason: pain (7-10) Stop: 07/14/22 20:16 Last Admin: 07/01/22 00:00 Dose: 1 mg Documented By: Admin: 06/30/22 20:38 Dose: 1 mg Documented By: ALVERTO Sodium Chloride (1/2 Nss) 1,000 mls @ 80 mls/hr IV .[id number] [facility] Stop: 07/01/22 17:44 Last Admin: 06/30/22 17:11 Dose: 80 mls/hr Documented By: [id number] Ondansetron HCl (Ondansetron Inj 2 Mg/Ml 2 Ml Vial) 4 mg IV Q6H PRN PRN Reason: Nausea And Vomiting Stop: 07/31/22 01:00 Last Admin: 07/01/22 01:19 Dose: 4 mg Documented By: ALVERTO Oxycodone HCl (Oxycodone Hcl Ir 5 Mg Tab (Immediate Release)) 5 mg PO Q4H PRN PRN Reason: Pain (1,2,3) Stop: 07/14/22 16:12 Last Admin: 06/30/22 18:32 Dose: 5 mg Documented By: [email or web address] Sertraline HCl (Sertraline Hcl 50 Mg Tablet) 75 mg PO [facility] Stop: 07/30/22 20:59 Last Admin: 06/30/22 21:17 Dose: 75 mg Documented By: ALVERTO Discontinued Medications Hydromorphone HCl (Hydromorphone Inj 0.5 Mg/0.5 Ml Syr) 0.5 mg IV NOW STA Stop: 06/30/22 10:29 Last Admin: 06/30/22 10:51 Dose: 0.5 mg Documented By: PEDRO PABLO Hydromorphone HCl (Hydromorphone Inj 0.5 Mg/0.5 Ml Syr) 0.5 mg IV NOW STA Stop: 06/30/22 11:31 Last Admin: 06/30/22 12:08 Dose: 0.5 mg Documented By: [id number] Hydromorphone HCl (Hydromorphone Inj 1 Mg/Ml Syringe) 1 mg IV NOW STA Stop: 06/30/22 13:05 Last Admin: 06/30/22 13:14 Dose: 1 mg Documented By: [id number] Hydromorphone HCl (Hydromorphone Inj 0.5 Mg/0.5 Ml Syr) 0.5 mg IV Q4H PRN PRN Reason: Pain (4,5,6+) Stop: 07/14/22 16:12 Last Admin: 06/30/22 17:06 Dose: 0.5 mg Documented By: [id number] Sodium Chloride (Nss 1000ml) 2,000 mls @ 999 mls/hr IV .Q2H1M ONE Stop: 06/30/22 11:50 Last Infusion: 06/30/22 12:24 Dose: 0 mls/hr Documented By: [id number] Admin: 06/30/22 10:07 Dose: 999 mls/hr Documented By: PEDRO PABLO Acetaminophen (Ofirmev) 1,000 mg in 100 mls @ 400 mls/hr IV NOW STA Stop: 06/30/22 10:42 Last Infusion: 06/30/22 11:24 Dose: 0 mls/hr Documented By: [id number] Admin: 06/30/22 10:50 Dose: 400 mls/hr Documented By: PEDRO PABLO Imaging Data Radiologist's Impression: Chest X-Ray 06/30/22 09:50 XR chest 1V portable HISTORY: Atypical chest pain. COMPARISON: Chest 06/08/2022. FINDINGS: The lungs are clear. Cardiac silhouette is normal in size. No pleural effusions. No pneumothorax. IMPRESSION: No acute process. ACT 112: Negative or not required by law. Electronically signed by: Vitor Waite M.D. 06/30/2022 10:40 AM Discharge Plan Visit Data Chief Complaint: Illness Stated Complaint: SICKLE CELL PAIN CRISIS ED Provider: Armaan Godfrey Discharge Problem: Sickle cell disease with crisis Patient Disposition: Admitted As Inpatient Condition: Good Discharge Instructions Interventions: ED Discharge Assessment Last Done: 06/30/22 19:55
--- NOTE | 2022-06-30 15:27 | Electrocardiogram Report ---
Test Reason : Blood Pressure : / mmHG Vent. Rate : 088 BPM Atrial Rate : 088 BPM P-R Int : 158 ms QRS Dur : 066 ms QT Int : 328 ms P-R-T Axes : 054 062 025 degrees QTc Int : 396 ms Poor data quality, interpretation may be adversely affected Normal sinus rhythm Nonspecific T wave abnormality Abnormal ECG When compared with ECG of 14-APR-2022 18:04, Nonspecific T wave abnormality, worse in Inferior leads Nonspecific T wave abnormality now evident in Anterolateral leads Confirmed by Gary Escudero ([id number]) on 06/30/2022 3:26:36 PM Referred By: REFERRED SELF Confirmed By:Gary Escudero
--- NOTE | 2022-06-30 15:56 | History & Physical Report ---
Date of Service June 30, 2022 Assessment & Plan (1) Sickle cell disease with crisis: Plan: -Admit to med/tele -Patient is currently afebrile, hemodynamically, stable, stable on RA, and is without chest pain, SOB, and acute chest xray findings -Patient has required frequent hospitalizations in the recent past for sickle cell crisis, has recently had her second Adakveo infusion at home, she experienced sickle cell crisis pain after her first infusion as well -Hgb is currently stable at 11.3, reticulocyte % currently at 4.6 -Will continue pain control with scheduled Tylenol 625 mg q6h, 5 mg PO oxy q4h prn pain (1,2,3), and IV Dilaudid (0.5 mg) q4h prn pain (4,5,6+). Wean pain regimen as able -Supplemental O2 as needed to maintain saturation > 92% -Will continue IV fluids overnight with LR -Will obtain xrays of the right hip/femur and right knee to evaluate for structural causes of her pain -Continue folic acid -AM CBC and BMP (2) Hyperbilirubinemia: Plan: -Total bili noted to be 1.4 today -Patient has been noted to have elevated bili in the past as well, was noted to be 1.3 on last admission -No abdominal pain, eating/drinking well, and other LFT's WNL -Continue to monitor for now (3) Anxiety: Plan: -Continue Sertraline Plan The patient was discussed with Dr. Wright at the time of the admission History of Present Illness Chief Complaint: Sickle cell acute pain crisis Primary Care Provider: [facility] Kaylan is a 22yo female with history of sickle cell anemia, frequent hospital admissions for acute pain crisis, hyperbilirubinemia, anxiety who presented to the [facility] ED on 06/30/22 with a chief complaint of acute sickle cell pain. The patient was last admitted to [facility] from 06/08-06/09 for acute sickle cell pain from parainfluenza virus infection. She was initially treated with IV Dilaudid and IV fluids, but was able to be weaned to PO oxycodone prior to discharge. In the ED the patient was found to be afebrile, hemodynamically stable, and stable on RA. Labs were remarkable for WBC WNL, stable Hgb of 11.3 (was noted to be 9.4 prior to last discharge), reticulocyte % of 4.6, stable renal function/electrolytes, total bili of 1.4 (was 1.3 on last admission). Chest xray was negative for acute findings. Prior to admission the patient had been given 2L NSS and a total of 1g IV tylenol with 2 mg IV Dilaudid. At the time of the exam the patient was resting in bed in no acute distress. She states that she had her second Adakveo infusion on 06/27/22 back home in [place]. She developed right leg pain after the infusion, she notes that she also had an acute pain crisis after the first which she was told may happen. She states that the pain is constant, aching, running from her mid femur to just distal to her right knee. She tried to use her home 5 mg PO Oxycodone but this did not relieve the pain. She states that the pain has improved somewhat compared to last Thursday when it first started. She went to the hospital in [place] on Thursday and was given IV Dilaudid. She states that her pain improved and she felt well enough to go home. However, the pain returned shortly after getting home and has continued since. She does not feel as though her pain is adequately controlled yet and feels as though she needs to come in overnight. She is hoping to be discharged in the morning if her pain is adequately controlled. She currently denies fever, chills, changes in vision, hearing, taste, and smell, chest pain, abdominal pain, nausea, vomiting, diarrhea, dy suria, hematuria, and recent falls. She also denies on numbness or tingling in the lower extremities. Please refer to Dr. Wright's attestation for any changes to the treatment plan Allergies Allergy/AdvReac Type Severity Reaction Status Date / Time peanut Allergy Intermediate ITCHY HIVES Verified 06/30/22 15:14 Home Medications Medication Instructions Recorded Confirmed Type cetirizine 10 mg tablet 10 mg PO HS 04/18/20 06/30/22 History ergocalciferol (vitamin D2) 1,250 50,000 unit PO WK 04/18/20 06/30/22 History mcg (50,000 unit) capsule ondansetron 4 mg disintegrating 4 - 8 mg PO Q8H PRN nausea and 02/28/21 06/30/22 Rx tablet vomiting #14 tabs sertraline 25 mg tablet 75 mg PO HS 07/02/21 06/30/22 History folic acid 1 mg tablet 1 mg PO DAILY 08/01/21 06/30/22 History acetaminophen 325 mg tablet 650 mg PO DIRECTED PRN Pain 12/13/21 06/30/22 History oxycodone 5 mg tablet 5 mg PO Q6H PRN pain #15 tabs 06/09/22 06/30/22 Rx crizanlizumab-tmca 10 mg/mL See Rx Instructions .Route .COMPLEX 06/30/22 06/30/22 History intravenous solution (Adakveo) Past Med/Surg History Medical History Anxiety Constipation COVID-19 Influenza A Leukocytosis Pneumonia Pyelonephritis Seasonal allergies Sepsis Sepsis Sickle cell anemia Sickle cell anemia with crisis Sickle cell crisis Sickle cell crisis Splenomegaly Transaminitis Vaginal ulceration Surgical History No pertinent past surgical history Family History Brother Sickle cell anemia Other No significant family history Social History Smoking Status: Never smoker Second Hand Exposure: No; Hx Alcohol Use: No Hx Substance Use: No Preferred Language: Nauruan Communication Ability: Effective [employer]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 All systems have been reviewed and are otherwise negative. Physical Exam Physical Exam: Physical Exam: General: In no acute distress, stated age, well-nourished, good hygiene HEENT: Normocephalic, atraumatic, no scleral icterus, pupils around round, symmetrical, and reactive to light, moist mucus membranes, trachea midline, no thyromegaly Chest/Pulm: No respiratory distress, symmetrical chest expansion, clear breath sounds throughout Cardiac: RRR, no murmurs noted Abdomen: Negative for ascites and bruising, normoactive bowel sounds, soft, non-tender to palpation throughout Musculoskeletal: Symmetrical and without signs of acute trauma, upper and lower extremities with full ROM, no atrophy, spasticity, or flaccidity, patient with full ROM of the BL lower extremities despite right knee and leg pain, no significant swelling/edema in the lower extremities Extremities: Radial, dorsalis pedis, and posterior tibial pulses are intact and symmetrical, no edema noted in the BL LE's Skin: Warm, dry, no rashes , lesions, or scars noted Neuro: Alert and oriented to person, place, month, year, and president, no focal defects, CN II-XII tested and intact, finger to nose test negative, no tremors noted Psych: No acute distress, calm and cooperative during the exam Results & Data Results & Data ([facility]) Vital Signs (Past 12 Hours) Vital Signs Temp Pulse Resp BP Pulse Ox O2 Del Method 06/30/22 13:30 74 17 06/30/22 13:30 110/63 06/30/22 13:01 86 19 06/30/22 13:01 102/60 06/30/22 13:00 92 H 15 99 06/30/22 12:30 79 16 99 06/30/22 12:00 77 14 100 06/30/22 11:30 79 12 100 06/30/22 11:00 85 12 99 06/30/22 10:30 87 17 06/30/22 10:10 88 17 06/30/22 09:38 36.6 C 100 H 18 116/63 99 Room Air Laboratory Results Abnormal lab results 06/30/22 06/30/22 Range/Units 10:00 10:00 RBC 3.68 L (3.93-5.22) M/uL Hgb 11.3 L (12.0-16.0) g/dl Hct 30.2 L (34.1-44.9) % MCHC 37.4 H (32.0-36.0) g/dL RDW Coeff of Kashif 14.7 H (11.5-14.5) % Reticulocyte % (Auto) 4.6 H (0.5-2.0) % Reticulocyte # 0.17 H (0.02-0.10) 10^6/uL Absolute Nucleated RBC 0.02 H (0-0) K/uL BUN 5 L (6-23) mg/dl Creatinine 0.57 L (0.6-1.2) mg/dl BUN/Creatinine Ratio 8.8 L (10-20) Glucose 114 H (70-99(Fasting)) mg/dl Total Bilirubin 1.4 H (0.2-1.0) mg/dl Lipase 7 L (11-82) U/L Diagnostic Findings Chest X-Ray 06/30/22 09:50 XR chest 1V portable HISTORY: Atypical chest pain. COMPARISON: Chest 06/08/2022. FINDINGS: The lungs are clear. Cardiac silhouette is normal in size. No pleural effusions. No pneumothorax. IMPRESSION: No acute process. ACT 112: Negative or not required by law. Electronically signed by: Vitor Waite M.D. 06/30/2022 10:40 AM ECG Additional Comments: Poor data quality, interpretation may be adversely affected Normal sinus rhythm Nonspecific T wave abnormality Abnormal ECG When compared with ECG of 14-APR-2022 18:04, Nonspecific T wave abnormality, worse in Inferior leads Nonspecific T wave abnormality now evident in Anterolateral leads Code Status & VTE Plan Code Status Full code VTE Prophylaxis Plan VTE Prophylaxis will be ordered: Yes Supervising Physician Co-Signing Physician Notes Patient seen and examined, chart reviewed, case discussed with Josh Irizarry PA-C and I agree with the assessment and plan as above except as otherwise noted Labs and images reviewed Che is a 22-year-old female with history of sickle cell disease and frequent hospitalizations who presents for a sickle cell crisis after her first infusion of Adakveo. CXR clear no chest pain, no sign of chest syndrome. Seen at bedside, she reports her pain is mostly in her leg, no pain in her chest. She is breathing comfortably. No fevers, chills, lightheadedness, dizziness. Reports this feels similar to prior crises, agrees with admission for pain control fluids overnight. Admit for pain control, Tylenol, fluids. Follow CBC/reticulocyte count. Avoid steroids. Agree with management above. PG Care Time/CCT Total # of Minutes Spent Total Time Spent with Patient: Total time spent is greater than 50% in coordination of care (as documented) at patient's floor/unit and/or counseling patient: Coding Level of Care Code Established Pt INT OBSERVATION CARE 50M LVL 2 Patient Type Established Medical Decision Making Moderate Complexity Diagnoses Sickle cell disease with crisis D57.00 Hyperbilirubinemia E80.6 Anxiety F41.9
[2022-06-30] MEDS ORDERED: HYDROmorphone INJ 0.5 MG/0.5 ML SYR IV PRN ×3 (16:13→20:18)
[2022-06-30] MEDS ORDERED: oxyCODONE HCL IR 5 MG TAB (IMMEDIATE RELEASE) PO PRN (16:13)
--- NOTE | 2022-06-30 17:00 | XRay Report ---
XR hip RT 2V w pelvis CLINICAL HISTORY: sickle cell crisis w/right leg pain COMPARISON: CT of the abdomen and pelvis May 07, 2021. FINDINGS: No acute fracture within the pelvis or hips is identified. Hip joint spaces are preserved. Sclerotic foci within the right iliac bone favor bone islands. These are unchanged since prior CT. T here is no evidence for avascular necrosis of the femoral heads. IMPRESSION: 1. No acute fracture within the pelvis or hips. 2. Preserved joint spaces. No evidence for avascular necrosis of the femoral heads. ACT 112: Negative or not required by law. Electronically signed by: Jono Quintero M.D. 06/30/2022 4:59 PM
--- NOTE | 2022-06-30 17:01 | XRay Report ---
XR knee RT 1 or 2V routine CLINICAL HISTORY: sickle cell pain w/right knee pain COMPARISON: None FINDINGS: Alignment of the right knee is anatomic. There is no joint effusion. There is no fracture. No sclerotic foci are identified. Joint spaces are preserved. IMPRESSION: Unremarkable right knee radiographs. ACT 112: Negative or not required by law. Electronically signed by: Jono Quintero M.D. 06/30/2022 5:00 PM
[2022-06-30] MEDS: ACETAMINOPHEN 325 MG TAB PO SCH ×2 (17:05→21:17)
[2022-06-30 17:07] LABS: Appearance Urine Clear (Clear); Bilirubin Urine Negative (Negative); Blood Urine Negative (Negative); Color Urine Yellow; Glucose Urine UA Negative (Negative); Ketones Urine Negative (Negative); Leukocyte Esterase Urine Negative (Negative); Nitrite Urine Negative (Negative); Protein Urine Negative (Negative); Specific Gravity Urine 1.013 (1.000-1.030); Urobilinogen Urine Negative (Negative)
[2022-06-30] MEDS: SODIUM CHLORIDE 0.45 % 1,000 ML IV SCH (17:11)
[2022-06-30] MEDS: HYDROmorphone INJ 1 MG/ML SYRINGE IV PRN (20:38)
[2022-06-30] MEDS: SERTRALINE HCL 50 MG TABLET PO SCH (21:17)
[2022-06-30] MEDS: CETIRIZINE HCL 10 MG TABLET PO SCH (21:17)
[2022-07-01] MEDS ORDERED: ONDANSETRON INJ 2 MG/ML 2 ML VIAL IV PRN (01:01)
[2022-07-01] MEDS: HYDROmorphone INJ 1 MG/ML SYRINGE IV PRN ×8 (03:53→23:34)
[2022-07-01] MEDS: ACETAMINOPHEN 325 MG TAB PO SCH ×4 (04:15→22:02)
[2022-07-01] MEDS: SODIUM CHLORIDE 0.45 % 1,000 ML IV SCH (06:24)
--- NOTE | 2022-07-01 06:52 | Hospitalist Progress Note ---
Date of Service July 01, 2022 Assessment & Plan (1) Sickle cell disease with crisis: Plan: Pt is a 22 yo female with PMH of sickle cell disease, anxiety, and constipation presenting to the hospital in a pain crisis. Sickle cell disease with crisis -Admit to med/tele -Patient is currently afebrile, hemodynamically, stable, stable on RA, and is without chest pain, SOB, and acute chest xray findings -Patient has required frequent hospitalizations in the recent past for sickle cell crisis, has recently had her second Adakveo infusion at home, she experienced sickle cell crisis pain after her first infusion as well -Hgb is currently stable at 11.3, reticulocyte % currently at 4.6 -Will continue pain control with scheduled Tylenol 625 mg q6h, 5 mg PO oxy q4h prn pain (1,2,3), and IV Dilaudid (0.5 mg) q4h prn pain (4,5,6+). Wean pain regimen as able -Supplemental O2 as needed to maintain saturation > 92% -Will continue IV fluids overnight with LR -Will obtain xrays of the right hip/femur and right knee to evaluate for structural causes of her pain -Continue folic acid -AM CBC and BMP Hyperbilirubinemia -Total bili noted to be 1.4 today -Patient has been noted to have elevated bili in the past as well, was noted to be 1.3 on last admission -No abdominal pain, eating/drinking well, and other LFT's WNL -Continue to monitor for now Anxiety -Continue Sertraline (2) Hyperbilirubinemia: (3) Anxiety: Plan FEN: 1/2 NS, regular diet Code: full DVT ppx: SCDs Dispo: med/surg for pain management Admission and Anticipated Discharge Date Admission Date: June 30, 2022 Subjective Pt is a 22 yo female with PMH of sickle cell disease, anxiety, and constipation presenting to the hospital in a pain crisis. In the ER, CXR was negative for any acute pathology. X ray of the right hip/pelvis and right knee were negative for fracture and pathology. Physical Exam Constitutional: NAD. Vitals WNL. Eyes: no conjunctival abnormality Respiratory: CTA bilaterally. No rhonchi, wheezing, or crackles. Non labored breathing. Cardiovascular: RRR. No murmur noted. No LL edema. Gastrointestinal (Abdomen): Nontender, +BS. No masses noted. Skin: no rashes, warm and dry Psychiatric: Alert. Mood and affect congruent. Results & Data Results & Data ([facility]) Vital Signs (Past 12 Hours) Vital Signs Temp Pulse Pulse Pulse Resp BP Pulse Ox 07/01/22 03:00 36.9 C 98 H 18 107/67 99 06/30/22 23:58 88 150/82 H 99 06/30/22 22:14 78 06/30/22 20:41 84 06/30/22 22:00 36.6 C 90 18 102/62 100 06/30/22 20:19 06/30/22 20:19 37.0 C 78 16 118/75 100 06/30/22 19:11 81 18 105/45 L 100 06/30/22 19:10 100 O2 Del Method 07/01/22 03:00 Room Air 06/30/22 23:58 Room Air 06/30/22 22:14 06/30/22 20:41 06/30/22 22:00 Room Air 06/30/22 20:19 Room Air 06/30/22 20:19 Room Air 06/30/22 19:11 Room Air 06/30/22 19:10 Room Air Resident Activity Tracking Resident Involvement: Resident Care Provided Care Provided: Adult Hospital Medicine
--- NOTE | 2022-07-01 07:41 | Hospitalist Progress Note ---
Date of Service July 01, 2022 Assessment & Plan (1) Sickle cell disease with crisis: Plan: Pt is a 22 yo female with PMH of sickle cell disease, anxiety, and constipation presenting for a sickle cell pain crisis. Sickle cell disease with crisis -Patient is afebrile, hemodynamically, stable, stable on RA, and is without chest pain, SOB, and acute chest xray findings - admission right hip/femur and right knee xrays negative for fracture or cause of pain -Patient has required frequent hospitalizations in the recent past for sickle cell crisis, has recently had her second Adakveo infusion at home ([place]), she experienced sickle cell crisis pain after her first infusion as well - She was told that the risk of crisis after infusion is supposed to decrease with subsequent infusions - Admission Hgb 11.3, reticulocyte % 4.6 - Hgb today 9.6 - Pt w/ O2 sat in upper 90s on RA -Will continue 1/2 NS -Will continue pain control with scheduled Tylenol 625 mg q6h, 5 mg PO oxy q4h prn pain (1,2,3), and IV Dilaudid (0.5 mg) q4h prn pain (4,5,6+) - pt currently using IV dilaudid q3hr- ordered extra spot dose for 3:30 PM - plan to wean to PO tomorrow as able - planning to establish w/ hematology locally (pt hoping to receive infusions locally as well) Hyperbilirubinemia -Total bili noted to be 1.4 upon admission, today down to 1.0 -Patient has been noted to have elevated bili in the past as well, was noted to be 1.3 on last admission -No abdominal pain, eating/drinking well, and other LFT's WNL Anxiety -Continue Sertraline (2) Hyperbilirubinemia: (3) Anxiety: Plan FEN: 1/2 NS, regular diet Code: full Consult: Brenna nurse navigator working on heme f/u DVT ppx: SCDs Dispo: med/surg for pain control, d/c when pt's pain controlled w/ PO meds Admission and Anticipated Discharge Date Admission Date: June 30, 2022 Supervising Physician Co-Signing Physician Notes Resident Physician Supervision Note: I independently interviewed and examined the patient and verified the knox history and physical, reviewed labs and image studies and agree with resident findings and care plan. Subjective Pt is a 22 yo female with PMH of sickle cell disease, anxiety, and constipation presenting for a sickle cell pain crisis. Pt is still in pain this morning; however, it has improved. Her original pain was 8-9/10 and now she is done to a 5-6/10. She feels that her pain medication is wearing off too soon- only lasting for about 2-2.5 hours. She would like to establish with a dietary assistant around here as she is currently seeing one back home on [place]. She would also like to receive her Adakveo infusions locally if able. She wants to go home, but understands that her pain isn't controlled enough yet. Physical Exam Constitutional: NAD. Vitals WNL. Eyes: no conjunctival abnormality Respiratory: CTA bilaterally. No rhonchi, wheezing, or crackles. Non labored breathing. Cardiovascular: RRR. No murmur noted. No LL edema. Psychiatric: Alert. Mood and affect congruent. Results & Data Results & Data ([facility]) Vital Signs (Past 12 Hours) Vital Signs Temp Pulse Pulse Resp BP Pulse Ox O2 Del Method 07/01/22 07:14 77 07/01/22 03:00 36.9 C 98 H 18 107/67 99 Room Air 06/30/22 23:58 88 150/82 H 99 Room Air 06/30/22 22:14 78 06/30/22 20:41 84 06/30/22 22:00 36.6 C 90 18 102/62 100 Room Air 06/30/22 20:19 Room Air 06/30/22 20:19 37.0 C 78 16 118/75 100 Room Air Resident Activity Tracking Resident Involvement: Resident Care Provided Care Provided: Adult Hospital Medicine
[2022-07-01] MEDS: FOLIC ACID 1 MG TAB PO SCH (08:02)
[2022-07-01 08:29] LABS: Hemoglobin 9.6 g/dl (12.0-16.0); Mean Corpuscular Hemoglobin 30.3 pg (25.0-34.0); Mean Corpuscular Hgb Conc 36.9 g/dL (32.0-36.0); Mean Platelet Volume 9.6 fL (9.4-12.3); Nucleated RBC # (auto) 0.03 K/uL (0-0); Nucleated RBC % (auto) 0.4 %; Platelet Count 304 K/uL (130-400); RDW Coefficient of Variation 14.5 % (11.5-14.5); RDW Standard Deviation 42.7 fL (36.4-46.3); Red Blood Count 3.17 M/uL (3.93-5.22); White Blood Count 8.19 K/ul (4.8-10.8)
[2022-07-01 08:54] LABS: Alanine Aminotransferase 8 U/L (7-52); Albumin Globulin Ratio 1.4 (0.9-2); Albumin Level 3.6 gm/dl (3.4-5.0); Alkaline Phosphatase 41 U/L (34-104); Anion Gap 2 (3-11); Aspartate Aminotransferase 15 U/L (13-39); BUN Creatinine Ratio 8.6 (10-20); Blood Urea Nitrogen 5 mg/dl (6-23); Calcium 8.6 mg/dl (8.5-10.1); Carbon Dioxide 26 mmol/L (21-32); Chloride 110 mmol/L (98-107); Creatinine Clr Calc Pharmacy 149.2 ml/min; Est GFR (African American) > 150.0 ml/min; Est GFR (Non-African American) 131.8 ml/min; Globulin 2.5 gm/dl (2.5-4.0); Glucose 93 mg/dl (70-99(Fasting)); Potassium 3.9 mmol/L (3.5-5.1); Sodium 138 mmol/L (136-145); Total Protein 6.1 gm/dl (6.0-8.3)
[2022-07-01] MEDS ORDERED: PNEUMOCOCCAL POLYSACCHARIDES 25 MCG/0.5 ML VIAL/SYR IM ONE (09:00)
[2022-07-01] MEDS ORDERED: FLUARIX QUADRIVALENT 0.5 ML SYR IM ONE (09:00)
[2022-07-01] MEDS ORDERED: HYDROmorphone INJ 1 MG/ML SYRINGE IV ONE ×2 (11:00→15:30)
[2022-07-01] MEDS ORDERED: SENNA 8.6 MG TAB PO PRN (19:46)
[2022-07-01] MEDS: CETIRIZINE HCL 10 MG TABLET PO SCH (20:19)
[2022-07-01] MEDS: SERTRALINE HCL 50 MG TABLET PO SCH (20:19)
[2022-07-01] MEDS: POLYETHYLENE (MIRALAX) 17 GM PACK PO SCH (22:02)
[2022-07-02] MEDS: HYDROmorphone INJ 1 MG/ML SYRINGE IV PRN (02:32)
[2022-07-02] MEDS: ACETAMINOPHEN 325 MG TAB PO SCH ×2 (05:42→11:00)
--- NOTE | 2022-07-02 07:13 | Hospitalist Progress Note ---
Date of Service July 02, 2022 Assessment & Plan (1) Sickle cell disease with crisis: Plan: Pt is a 22 yo female with PMH of sickle cell disease, anxiety, and constipation presenting for a sickle cell pain crisis. Sickle cell disease with crisis -Patient is afebrile, hemodynamically, stable, stable on RA, and is without chest pain, SOB, and acute chest xray findings - admission right hip/femur and right knee xrays negative for fracture or cause of pain -Patient has required frequent hospitalizations in the recent past for sickle cell crisis, has recently had her second Adakveo infusion at home ([place]), she experienced sickle cell crisis pain after her first infusion as well - She was told that the risk of crisis after infusion is supposed to decrease with subsequent infusions - Admission Hgb 11.3, reticulocyte % 4.6 - Hgb today 9.6 - Pt w/ O2 sat in upper 90s on RA -Will continue 1/2 NS -Will continue pain control with scheduled Tylenol 625 mg q6h, 5 mg PO oxy q4h prn pain (1,2,3), and IV Dilaudid (0.5 mg) q4h prn pain (4,5,6+) - pt currently using IV dilaudid q3hr with extra spot dose for 3:30 PM - plan to wean to PO today as able - per nurse navigator, pt has hematology referrals to both [facility]- pt advised to accept whichever appointment is sooner Hyperbilirubinemia -Total bili noted to be 1.4 upon admission, today down to 1.0 -Patient has been noted to have elevated bili in the past as well, was noted to be 1.3 on last admission -No abdominal pain, eating/drinking well, and other LFT's WNL Anxiety -Continue Sertraline (2) Hyperbilirubinemia: (3) Anxiety: Plan FEN: 1/2 NS, regular diet Code: full DVT ppx: SCDs Dispo: med/surg for pain control, d/c when pt's pain controlled w/ PO meds Admission and Anticipated Discharge Date Admission Date: June 30, 2022 Subjective Pt is a 22 yo female with PMH of sickle cell disease, anxiety, and constipation presenting for a sickle cell pain crisis. Pt is still in pain this morning; however, it has improved. Her original pain was 8-9/10 and now she is done to a 5-6/10. She feels that her pain medication is wearing off too soon- only lasting for about 2-2.5 hours. She would like to establish with a manager training and development around here as she is currently seeing one back home on [place]. She would also like to receive her Adakveo infusions locally if able. She wants to go home, but understands that her pain isn't c ontrolled enough yet. Physical Exam Constitutional: NAD. Vitals WNL. Eyes: no conjunctival abnormality Respiratory: CTA bilaterally. No rhonchi, wheezing, or crackles. Non labored breathing. Cardiovascular: RRR. No murmur noted. No LL edema. Gastrointestinal (Abdomen): Nontender, +BS. No masses noted. Skin: no rashes, warm and dry Psychiatric: Alert. Mood and affect congruent. Results & Data Results & Data ([facility]) Vital Signs (Past 12 Hours) Vital Signs Temp Pulse Pulse Resp BP Pulse Ox O2 Del Method 07/01/22 22:19 88 07/02/22 03:48 36.8 C 84 18 111/71 99 Room Air 07/01/22 23:00 37.0 C 88 20 117/76 95 Room Air 07/01/22 19:36 36.7 C 94 H 18 108/70 97 Room Air Resident Activity Tracking Resident Involvement: Resident Care Provided Care Provided: Adult Hospital Medicine
[2022-07-02 07:25] LABS: Hematocrit (blood only) 27.2 % (34.1-44.9); Hemoglobin 9.9 g/dl (12.0-16.0); Mean Corpuscular Hemoglobin 30.1 pg (25.0-34.0); Mean Corpuscular Hgb Conc 36.4 g/dL (32.0-36.0); Mean Corpuscular Volume 82.7 fL (80.0-100.0); Mean Platelet Volume 9.6 fL (9.4-12.3); Nucleated RBC # (auto) 0.05 K/uL (0-0); Nucleated RBC % (auto) 0.5 %; Platelet Count 278 K/uL (130-400); RDW Coefficient of Variation 14.7 % (11.5-14.5); RDW Standard Deviation 42.7 fL (36.4-46.3); Red Blood Count 3.29 M/uL (3.93-5.22)
[2022-07-02 07:53] LABS: Alanine Aminotransferase 13 U/L (7-52); Albumin Globulin Ratio 1.4 (0.9-2); Albumin Level 3.7 gm/dl (3.4-5.0); Alkaline Phosphatase 43 U/L (34-104); Anion Gap 4 (3-11); Aspartate Aminotransferase 23 U/L (13-39); BUN Creatinine Ratio 13.2 (10-20); Bilirubin,Total 1.6 mg/dl (0.2-1.0); Blood Urea Nitrogen 7 mg/dl (6-23); Calcium 8.9 mg/dl (8.5-10.1); Carbon Dioxide 27 mmol/L (21-32); Chloride 105 mmol/L (98-107); Creatinine Clr Calc Pharmacy 163.3 ml/min; Est GFR (African American) > 150.0 ml/min; Est GFR (Non-African American) 135.7 ml/min; Globulin 2.6 gm/dl (2.5-4.0); Glucose 86 mg/dl (70-99(Fasting)); Potassium 3.9 mmol/L (3.5-5.1); Sodium 136 mmol/L (136-145); Total Protein 6.3 gm/dl (6.0-8.3)
[2022-07-02] MEDS: POLYETHYLENE (MIRALAX) 17 GM PACK PO SCH (07:58)
[2022-07-02] MEDS: FOLIC ACID 1 MG TAB PO SCH (07:58)
--- NOTE | 2022-07-02 09:53 | Discharge Summary ---
Date of Service July 02, 2022 Admission HPI Per Admitting Provider Kaylan is a 22yo female with history of sickle cell anemia, frequent hospital admissions for acute pain crisis, hyperbilirubinemia, anxiety who presented to the [facility] ED on 06/30/22 with a chief complaint of acute sickle cell pain. The patient was last admitted to [facility] from 06/08-06/09 for acute sickle cell pain from parainfluenza virus infection. She was initially treated with IV Dilaudid and IV fluids, but was able to be weaned to PO oxycodone prior to discharge. In the ED the patient was found to be afebrile, hemodynamically stable, and stable on RA. Labs were remarkable for WBC WNL, stable Hgb of 11.3 (was noted to be 9.4 prior to last discharge), reticulocyte % of 4.6, stable renal function/electrolytes, total bili of 1.4 (was 1.3 on last admission). Chest xray was negative for acute findings. Prior to admission the patient had been given 2L NSS and a total of 1g IV tylenol with 2 mg IV Dilaudid. At the time of the exam the patient was resting in bed in no acute distress. She states that she had her second Adakveo infusion on 06/27/22 back home in [place]. She developed right leg pain after the infusion, she notes that she also had an acute pain crisis after the first which she was told may happen. She states that the pain is constant, aching, running from her mid femur to just distal to her right knee. She tried to use her home 5 mg PO Oxycodone but this did not relieve the pain. She states that the pain has improved somewhat compared to last Thursday when it first started. She went to the hospital in [place] on Thursday and was given IV Dilaudid. She states that her pain improved and she felt well enough to go home. However, the pain returned shortly after getting home and has continued since. She does not feel as though her pain is adequately controlled yet and feels as though she needs to come in overnight. She is hoping to be discharged in the morning if her pain is adequately controlled. She currently denies fever, chills, changes in vision, hearing, taste, and smell, chest pain, abdominal pain, nausea, vomiting, diarrhea, dysuria, hematuria, and recent falls. She also denies on numbness or tingling in the lower extremities. Admission Exam Per Admitting Provider General:In no acute distress, stated age, well-nourished, good hygiene HEENT:Normocephalic, atraumatic, no scleral icterus, pupils around round, symmetrical, and reactive to light, moist mucus membranes, trachea midline, no thyromegaly Chest/Pulm:No respiratory distress, symmetrical chest expansion, clear breath sounds throughout Cardiac:RRR, no murmurs noted Abdomen:Negative for ascites and bruising, normoactive bowel sounds, soft, non- tender to palpation throughout Musculoskeletal:Symmetrical and without signs of acute trauma, upper and lower extremities with full ROM, no atrophy, spasticity, or flaccidity, patient with full ROM of the BL lower extremities despite right knee and leg pain, no significant swelling/edema in the lower extremities Extremities:Radial, dorsalis pedis, and posterior tibial pulses are intact and symmetrical, no edema noted in the BL LE's Skin:Warm, dry, no rashes , lesions, or scars noted Neuro:Alert and oriented to person, place, month, year, and president, no focal defects, CN II-XII tested and intact, finger to nose test negative, no tremors noted Psych:No acute distress, calm and cooperative during the exam Principal Diagnosis sickle cell pain crisis Discharge Exam Constitutional NAD. Vitals WNL. Respiratory CTA bilaterally. Non labored breathing. No rhonchi, wheezing, or crackles. Cardiovascular RRR. No murmurs noted. No LE edema. Psychiatric Alert. Mood and affect congruent. Discharge Data Allergies Allergy/AdvReac Type Severity Reaction Status Date / Time peanut Allergy Intermediate ITCHY HIVES Verified 06/30/22 15:14 Consultations 06/30/22 14:50 ED Decision to Admit Stat Ordered Studies Chest X-Ray 06/30/22 09:50 XR chest 1V portable HISTORY: Atypical chest pain. COMPARISON: Chest 06/08/2022. FINDINGS: The lungs are clear. Cardiac silhouette is normal in size. No pleural effusions. No pneumothorax. IMPRESSION: No acute process. ACT 112: Negative or not required by law. Electronically signed by: Vitor Waite M.D. 06/30/2022 10:40 AM Hip/Pelvis X-Ray 06/30/22 16:15 XR hip RT 2V w pelvis CLINICAL HISTORY: sickle cell crisis w/right leg pain COMPARISON: CT of the abdomen and pelvis May 07, 2021. FINDINGS: No acute fracture within the pelvis or hips is identified. Hip joint spaces are preserved. Sclerotic foci within the right iliac bone favor bone islands. These are unchanged since prior CT. There is no evidence for avascular necrosis of the femoral heads. IMPRESSION: 1. No acute fracture within the pelvis or hips. 2. Preserved joint spaces. No evidence for avascular necrosis of the femoral heads. ACT 112: Negative or not required by law. Electronically signed by: Jono Quintero M.D. 06/30/2022 4:59 PM Knee X-Ray 06/30/22 16:15 XR knee RT 1 or 2V routine CLINICAL HISTORY: sickle cell pain w/right knee pain COMPARISON: None FINDINGS: Alignment of the right knee is anatomic. There is no joint effusion. There is no fracture. No sclerotic foci are identified. Joint spaces are preserved. IMPRESSION: Unremarkable right knee radiographs. ACT 112: Negative or not required by law. Electronically signed by: Jono Quintero M.D. 06/30/2022 5:00 PM Hospital Course (1) Sickle cell disease with crisis: Pt is a 22 yo female with PMH of sickle cell disease, anxiety, and constipation presenting for a sickle cell pain crisis. -Patient has been afebrile, hemodynamically, stable, stable on RA, and is without chest pain, SOB, and acute chest xray findings - Admission right hip/femur and right knee xrays negative for fracture or cause of pain -Patient has required frequent hospitalizations in the recent past for sickle cell crisis, has recently had her second Adakveo infusion at home ([place]), she experienced sickle cell crisis pain after her first infusion as well - She was told that the risk of crisis after infusion is supposed to decrease with subsequent infusions - Admission Hgb 11.3, reticulocyte % 4.6 - On discharge, Hgb 9.9 - Pt w/ O2 sat in upper 90s on RA - Received 1/2 NS during visit - Pain control regimen: scheduled Tylenol 625 mg q6h, 5 mg PO oxy q4h prn pain (1,2,3), and IV Dilaudid (0.5 mg) q4h prn pain (4,5,6+) - pt mostly used IV dilaudid q3hr- extra spot dose given afternoon 07/01 - Pt felt well enough to go home w/ PO medications (pain 11/24) - planning to establish w/ hematology locally (pt hoping to receive infusions locally as well) (2) Hyperbilirubinemia: -Total bili noted to be 1.4 upon admission, trended down to 1.0, then 1.6 upon discharge -Patient has been noted to have elevated bili in the past as well, was noted to be 1.3 on last admission -No abdominal pain, eating/drinking well, and other LFT's WNL (3) Anxiety: Continue sertraline Plan FEN: 1/2 NS while hospitalized, regular diet Code: full DVT ppx: SCDs Dispo: home Total Time Total Time Spent Total Time Spent (In Minutes): as per attending attestation Discharge Plan Discharge Items Patient Disposition: Home - Self-Care Reason For Visit: SICKLE CELL PAIN Discharge Diagnosis: sickle cell pain crisis Condition on Discharge: Good Activity: Resume your previous activity Non-emergency contact: Primary Care Provider and Oncologist Call non-emergency contact if: you have any medication questions, your symptoms worsen and your pain is not controlled Follow-up/Referrals: [facility] [Primary Care Provider] - (PLEASE CALL YOUR PRIMARY CARE PROVIDER TO SCHEDULE A DISCHARGE FOLLOW-UP APPOINTMENT WITHIN 7-10 DAYS.) Diet: Regular Addtl Attending Provider Instructions: You were admitted to the hospital for a sickle cell pain crisis. You were treated with pain medications, IV dilaudid and tylenol, and IV fluids. A discharge summary will be sent to your primary care physician to ensure continuity of care. Please bring this discharge summary with you to your next office appointment so that your provider can review it at that time. Medications: Your medication list has been reviewed and reconciled upon discharge to ensure accuracy and continuity of care. An updated list of all your medications is included with your hospital discharge paperwork. Please review this list closely and make note of any changes to your medications. - You were sent oxycodone 5 mg every 6 hours as needed for pain. You were sent a total of 15 tablets. - Otherwise, continue all your home medications as before your hospitalization. Follow up appointments: - Make a follow up appointment with your PCP within the next week. It is very important that you follow up with them shortly after discharge from the hospital. - A referral to local hematologists has been made for you. Arrange an appointment with them when they call you. - Keep all of your follow up appointments as already scheduled. If you cannot make an appointment, notify your provider. CONTACT YOUR PRIMARY CARE PROVIDER if you experience any of the following: - Difficulty following your treatment plan - Difficulty taking any of your medications CALL 911 OR GO TO THE EMERGENCY DEPARTMENT if you experience any of the following: - Increase in your pain - Sudden, severe abdominal pain or nausea/vomiting - Severe chest pain or chest pain that radiates to your jaw or arm - Sudden, severe shortness of breath or difficulty breathing Pending Studies at Discharge: No Stand-Alone Forms: My [facility] [employer], Smoking Cessation Medications and DC Order Prescriptions: Continued cetirizine 10 mg tablet 10 mg PO HS ergocalciferol (vitamin D2) 1,250 mcg (50,000 unit) capsule 50,000 unit PO WK Rx Instructions: TAKES ON SATURDAYS sertraline 25 mg tablet 75 mg PO HS folic acid 1 mg tablet 1 mg PO DAILY acetaminophen 325 mg tablet 650 mg PO DIRECTED PRN (Reason: Pain) ondansetron 4 mg tablet,disintegrating 4 - 8 mg PO Q8H PRN (Reason: nausea and vomiting) Qty: 14 0RF Adakveo 10 mg/mL Solution See Rx Instructions .ROUTE .COMPLEX Rx Instructions: infusion monthly per pt oxycodone 5 mg tablet 5 mg PO Q6H PRN (Reason: pain) Qty: 15 0RF Discharge Orders: Discharge Order (Routine); Ordered 07/02/22 Ordered By: Miriam Monroy Admission Data Admit Date/Time: 06/30/22 16:03 Attending Provider: Miriam Monroy Admit Provider: Andrew Wright Primary Care Provider: [facility] Other Providers: Andrew Wright Other Interventions: Discharge Summary Assessment (RN) Last Done: 07/02/22 09:59 Supervising Physician Co-Signing Physician Notes Resident Physician Supervision Note: I independently interviewed and examined the patient and verified the knox history and physical, reviewed labs and image studies and agree with resident findings and care plan. Resident Activity Tracking Resident Involvement: Resident Care Provided Care Provided: Adult Hospital Medicine
== END 2022-07-02 11:37 | disposition home or self-care (01) ==
LOC: ED 09:35 → 2N 09:35 → SUATTDRO 16:03 → 2N 19:55

== ENCOUNTER 2022-11-25 03:37 | Inpatient (IN) ==
[2022-11-25] MEDS ORDERED: HYDROmorphone INJ 1 MG/ML SYRINGE IV STA ×2 (03:51→05:15)
[2022-11-25] MEDS ORDERED: SODIUM CHLORIDE 0.9% 1000ML 1,000 ML IV ONE ×2 (03:53→05:15)
[2022-11-25] MEDS ORDERED: ONDANSETRON INJ 2 MG/ML 2 ML VIAL IV STA (03:54)
--- NOTE | 2022-11-25 04:05 | Emergency Department Note ---
Impression & Plan Sickle cell disease with crisis, Leukocytosis ED Provider Note CHIEF COMPLAINT: Back pain, URI, sickle cell crisis HISTORY OF PRESENT ILLNESS: This 22-year-old female patient with significant past medical history of sickle cell disease presents to the emergency department via private vehicle for evaluation of back pain. The patient states she woke this morning with some low back pain and body aches. She is also experiencing some pain in her legs. She states at the same time, she was experiencing some significant fatigue and was having difficulty getting out of bed at all. She notes that she then developed some mild congestion and runny nose. She did take some Advil Cold and Sinus without significant improvement. She notes she has taken 3 doses of 5 mg oxycodone without relief of her pain. Patient states that she was recently here for a urinary tract infection. She notes she was started on antibiotics but was taking them only once a day because she "read the bottle wrong" and admits that she missed a day or two as well. She notes she is still taking the medication, but does not believe she is taking it properly. The patient does not have a printed out treatment plan from her doctors but notes that when she experiences back and leg pain associated with sickle cell, she receives 1 to 2 mg of Dilaudid. The patient notes throughout the day, she has only had 2 bottles of water and Gatorade. She denies any persistent UTI symptoms including dysuria, urinary frequency, urinary hesitancy. Last menstrual period was about 3 weeks ago and was normal. No cough, sore throat, abdominal pain, nausea, vomiting, diarrhea. REVIEW OF SYSTEMS: A 10 system review of systems was performed with positives and pertinent negatives listed in the history of present illness. All other systems were reviewed and are negative. ALLERGIES: peanut PHYSICAL EXAM: VITALS: Vitals are noted on the nurse's note and reviewed by myself. Vital signs stable. GENERAL: This is a 22-year-old, in no acute distress, nondiaphoretic, well- developed well-nourished. SKIN: The skin was without rashes, erythema, edema, or bruising. There is no tenting of the skin. Capillary refill less than 2 seconds. HEAD: Normocephalic atraumatic. EARS: External auditory canals clear, tympanic membranes pearly petersen without erythema or effusion bilaterally. EYES: Pupils equal round and reactive to light and accommodation. Conjunctivae without injection, sclerae without icterus. Extraocular movements intact. NOSE: Patent, turbinates without inflammation or discharge. No sinus tenderness. MOUTH: Mucous membranes moist. Tonsils are not enlarged. Pharynx without erythema or exudate. Uvula midline. Airway patent. Tongue does not deviate. NECK: Supple without nuchal rigidity. No lymphadenopathy. No thyromegaly. Cervical spine is nontender. No JVD. HEART: Regular rate and rhythm without murmurs gallops or rubs. LUNGS: Clear to auscultation bilaterally without wheezes, rales or rhonchi. No retractions or accessory muscle use. ABDOMEN: Positive bowel sounds x 4. Soft, nontender, without masses or organomegaly. Lou sign negative. No guarding or rebound tenderness. No CVA tenderness bilaterally. MUSCULOSKELETAL: No muscle atrophy, erythema, or edema noted. Full range of motion without joint tenderness in all extremities. No tenderness to palpation. Normal gait. Strength 5/5 throughout. NEURO: Patient was alert and oriented to person place and time. Normal sensation to light and sharp touch. No focal neurological deficits. An order was placed for continuous cardiac monitoring. The monitor shows a sinus tachycardia with a ventricular rate of 105 bpm. RADIOLOGY: CXR, interpreted by me: No pneumothorax, effusion, infiltrate, pulmonary edema, free air under the diaphragm, or wide mediastinum. EMERGENCY DEPARTMENT COURSE/MDM: The patient was seen and evaluated as above. Previous medical records were reviewed. IV access was obtained, labs drawn. The patient was immediately medicated with IV fluids and 1 mg IV Dilaudid. Were concerning for a leukocytosis of 30,000. Patient does have an anemia with a hemoglobin of 11.0 and hematocrit of 29.6. Reticulocyte count 0.23, 6.3%. Bilirubin elevated 2.1. Otherwise, renal, hepatic function and electrolytes without significant abnormality. hCG negative. Procalcitonin 0.08. COVID-19, RSV, influenza testing negative. Urinalysis is still pending. Respiratory bio fire testing still pending. Lactic acid 0.6. Blood cultures are pending. I did reassess the patient. She notes that she had some improvement in her pain after the initial administration of Dilaudid, but the pain is returning at this time. The patient was given a repeat dose of 1 mg IV Dilaudid and IV fluids. Due to the significant leukocytosis and persistent pain in the setting of sickle cell crisis, I do recommend inpatient care. I discussed my recommendation with the patient at bedside. She was agreeable. The patient will be admitted to the [facility] hospitalist service. I did discuss the case with Dr. Rodgers. Please see hospitalist dictation regarding ongoing management care of this patient. Differential diagnosis includes sickle cell crisis, acute chest syndrome, UTI, musculoskeletal, URI, pneumonia, malignancy, among others I attest that I have personally reviewed the patient's current medication list. Patient was found to have normal blood pressure on screening and does not requir e follow-up. The chart was completed utilizing [employer] voice recognition software. Grammatical errors, random word insertions, pronoun errors, and incomplete sentences are an occasional consequence of this system due to software limitations, ambient noise, and hardware issues. Any formal questions or concerns about the content, text, or information contained within the body of this dictation should be directly addressed to the provider for clarification. Past Med/Surg History Medical History Abnormal LFTs Anxiety Asthma Back pain Constipation COVID-19 Influenza A Leukocytosis Parainfluenza Pneumonia Pyelonephritis Seasonal allergies Sepsis Sepsis Sickle cell anemia Sickle cell anemia with crisis Sickle cell crisis Sickle cell crisis Splenomegaly Transaminitis Vaginal ulceration Surgical History No pertinent past surgical history Family History Brother Sickle cell anemia Social History Smoking Status: Never smoker Second Hand Exposure: No; Hx Alcohol Use: No Hx Substance Use: No Preferred Language: Trinidadian Communication Ability: Effective 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 Beliefs That Will Affect Care: None marital status: Single Current Living Situation: Other Current Living Situation Comment: anirudh Feels Safe at Home: Yes Assistive Devices: Glasses Allergies Allergies Allergy/AdvReac Type Severity Reaction Status Date / Time peanut Allergy Intermediate ITCHY HIVES Verified 10/29/22 02:53 Home Meds Home Medications Medication Instructions Recorded Confirmed cetirizine 10 mg tablet 10 mg PO HS 04/18/20 10/29/22 ergocalciferol (vitamin D2) 1,250 50,000 unit PO WK 04/18/20 10/29/22 mcg (50,000 unit) capsule folic acid 1 mg tablet 1 mg PO DAILY 08/01/21 10/29/22 acetaminophen 325 mg tablet 650 mg PO DIRECTED PRN Pain 12/13/21 10/29/22 crizanlizumab-tmca 10 mg/mL See Rx Instructions .Route .COMPLEX 06/30/22 10/29/22 intravenous solution (Adakveo) hydromorphone 2 mg tablet 2 mg PO Q6H PRN Pain 10/29/22 10/29/22 ondansetron 4 mg disintegrating 4 mg PO Q8H PRN nausea and vomiting 10/29/22 10/29/22 tablet Previous Rx's Medication Instructions Recorded oxycodone 10 mg tablet 10 mg PO BID PRN pain #31 tabs 09/03/22 oxycodone 5 mg tablet 5 - 10 mg PO Q6H #12 tabs 10/29/22 cefdinir 300 mg capsule 300 mg PO BID 14 days #28 caps 11/14/22 oxycodone 5 mg tablet 5 - 10 mg PO Q6 PRN pain #12 tabs 11/14/22 oxycodone 5 mg tablet 5 mg PO Q8H PRN pain #9 tabs 11/14/22 Results & Data (ED) Vital Signs Vital Signs - 24 hr 11/25/22 03:40 11/25/22 04:01 11/25/22 04:07 Temperature 36.5 C Temperature Source Temporal Artery Scan Pulse Rate 119 H 104 H 107 H Pulse Rate [Apical] Respiratory Rate 16 17 Respiratory Effort / Characteristics Respiratory Depth Blood Pressure 113/69 Blood Pressure [Left Arm] Blood Pressure Mean 83 Blood Pressure Mean [Left Arm] Blood Pressure Position [Left Arm] Pulse Oximetry 100 100 Oxygen Delivery Method Room Air Room Air Sepsis Recent Fever Within 48 Hours No Sepsis New/Unexplained Change in Mental Status No Sepsis Action Taken by Nursing No Action Required 11/25/22 04:10 11/25/22 05:16 Temperature Temperature Source Pulse Rate Pulse Rate [Apical] 105 H 90 Respiratory Rate 17 17 Respiratory Effort / Characteristics Non-Labored Spontaneous Non-Labored Spontaneous Respiratory Depth Normal Normal Blood Pressure Blood Pressure [Left Arm] 123/78 110/74 Blood Pressure Mean Blood Pressure Mean [Left Arm] 93 86 Blood Pressure Position [Left Arm] Sitting Sitting Pulse Oximetry 98 100 Oxygen Delivery Method Room Air Room Air Sepsis Recent Fever Within 48 Hours Sepsis New/Unexplained Change in Mental Status Sepsis Action Taken by Nursing Laboratory Data 11/25/22 03:55 11/25/22 03:55 Lab Results 11/25/22 11/25/22 11/25/22 Range/Units 03:55 03:55 03:55 WBC 30.79 H* (4.8-10.8) K/ul RBC 3.61 L (4.20-5.40) M/uL Hgb 11.0 L (12.0-16.0) g/dl Hct 29.6 L (37.0-47.0) % MCV 82.0 (80.0-100.0) fL MCH 30.5 (25.0-34.0) pg MCHC 37.2 H (32.0-36.0) g/dL RDW Std Deviation 43.1 (36.4-46.3) fL RDW Coeff of Kashif 14.7 H (11.5-14.5) % Plt Count 321 (130-400) K/uL MPV 9.5 (9.4-12.4) fL Immature Gran % (Auto) 0.6 % Neut % (Auto) 82.0 % Lymph % (Auto) 6.5 % [place] % (Auto) 9.8 % Eos % (Auto) 0.7 % Baso % (Auto) 0.4 % Reticulocyte % (Auto) 6.3 H (0.5-2.0) % Neut # (Auto) 25.25 H (1.40-6.50) K/uL Lymph # (Auto) 1.99 (1.2-3.4) K/uL [place] # (Auto) 3.02 H (0.11-0.59) K/uL Eos # (Auto) 0.21 (0-0.50) K/uL Baso # (Auto) 0.13 (0-0.2) K/uL Reticulocyte # 0.23 H (0.02-0.10) 10^6/uL Immature Gran # (Auto) 0.19 (0.01-0.20) K/uL Absolute Nucleated RBC 0.07 (0-0.12) K/uL Nucleated RBC % (auto) 0.2 % Polychromasia 1+ Target Cells 3+ Stomatocytes 1+ ESR < 1 (0-20) mm/hr Sodium 134 L (136-145) mmol/L Potassium 3.8 (3.5-5.1) mmol/L Chloride 106 (98-107) mmol/L Carbon Dioxide 21 (21-32) mmol/L Anion Gap 7 (3-11) BUN 8 (6-23) mg/dl Creatinine 0.63 (0.6-1.2) mg/dl Est Cr Clr Drug Dosing 114.8 ml/min Est GFR ( Amer) 148.6 ml/min Est GFR (Non-Af Amer) 128.2 ml/min BUN/Creatinine Ratio 12.7 (10-20) Glucose 105 H (70-99(Fasting)) mg/dl Lactate (0.4-2.0) mmol/L Calcium 9.3 (8.6-10.3) mg/dl Total Bilirubin 2.1 H (0.2-1.0) mg/dl AST 21 (13-39) U/L ALT 12 (7-52) U/L Alkaline Phosphatase 50 (34-104) U/L Troponin I High Sens 3.2 (0-14) pg/ml Total Protein 7.2 (6.0-8.3) gm/dl Albumin 4.5 (3.4-5.0) gm/dl Globulin 2.7 (2.5-4.0) gm/dl Albumin/Globulin Ratio 1.7 (0.9-2) Procalcitonin (0-0.5) ng/ml HCG, Qual (Negative) Adenovirus (PCR) (NotDetected) B. pertussis DNA (PCR) (NotDetected) B.parapertussis DNA PCR (NotDetected) C. pneumoniae DNA (PCR) (NotDetected) Coronavirus OC43 (PCR) (NotDetected) Coronavirus HKU1 (PCR) (NotDetected) Coronavirus 229E (PCR) (NotDetected) SARS-CoV-2 (PCR) (Negative) Coronavirus NL63 (PCR) (NotDetected) Human Metapneumovir PCR (NotDetected) Influenza Type A (PCR) (Neg) Influenza Type B (PCR) (Neg) M. pneumoniae (PCR) (NotDetected) Parainfluenza 1 (PCR) (NotDetected) Parainfluenza 2 (PCR) (NotDetected) Parainfluenza 3 (PCR) (NotDetected) Parainfluenza 4 (PCR) (NotDetected) RSV (RT-PCR) (Neg) RSV (PCR) (NotDetected) Entero/Rhino (PCR) (NotDetected) 11/25/22 11/25/22 11/25/22 Range/Units 03:55 03:55 04:09 WBC (4.8-10.8) K/ul RBC (4.20-5.40) M/uL Hgb (12.0-16.0) g/dl Hct (37.0-47.0) % MCV (80.0-100.0) fL MCH (25.0-34.0) pg MCHC (32.0-36.0) g/dL RDW Std Deviation (36.4-46.3) fL RDW Coeff of Kashif (11.5-14.5) % Plt Count (130-400) K/uL MPV (9.4-12.4) fL Immature Gran % (Auto) % Neut % (Auto) % Lymph % (Auto) % [place] % (Auto) % Eos % (Auto) % Baso % (Auto) % Reticulocyte % (Auto) (0.5-2.0) % Neut # (Auto) (1.40-6.50) K/uL Lymph # (Auto) (1.2-3.4) K/uL [place] # (Auto) (0.11-0.59) K/uL Eos # (Auto) (0-0.50) K/uL Baso # (Auto) (0-0.2) K/uL Reticulocyte # (0.02-0.10) 10^6/uL Immature Gran # (Auto) (0.01-0.20) K/uL Absolute Nucleated RBC (0-0.12) K/uL Nucleated RBC % (auto) % Polychromasia Target Cells Stomatocytes ESR (0-20) mm/hr Sodium (136-145) mmol/L Potassium (3.5-5.1) mmol/L Chloride (98-107) mmol/L Carbon Dioxide (21-32) mmol/L Anion Gap (3-11) BUN (6-23) mg/dl Creatinine (0.6-1.2) mg/dl Est Cr Clr Drug Dosing ml/min Est GFR ( Amer) ml/min Est GFR (Non-Af Amer) ml/min BUN/Creatinine Ratio (10-20) Glucose (70-99(Fasting)) mg/dl Lactate (0.4-2.0) mmol/L Calcium (8.6-10.3) mg/dl Total Bilirubin (0.2-1.0) mg/dl AST (13-39) U/L ALT (7-52) U/L Alkaline Phosphatase (34-104) U/L Troponin I High Sens (0-14) pg/ml Total Protein (6.0-8.3) gm/dl Albumin (3.4-5.0) gm/dl Globulin (2.5-4.0) gm/dl Albumin/Globulin Ratio (0.9-2) Procalcitonin 0.08 (0-0.5) ng/ml HCG, Qual Negative (Negative) Adenovirus (PCR) (NotDetected) B. pertussis DNA (PCR) (NotDetected) B.parapertussis DNA PCR (NotDetected) C. pneumoniae DNA (PCR) (NotDetected) Coronavirus OC43 (PCR) (NotDetected) Coronavirus HKU1 (PCR) (NotDetected) Coronavirus 229E (PCR) (NotDetected) SARS-CoV-2 (PCR) NEGATIVE (Negative) Coronavirus NL63 (PCR) (NotDetected) Human Metapneumovir PCR (NotDetected) Influenza Type A (PCR) Negative (Neg) Influenza Type B (PCR) Negative (Neg) M. pneumoniae (PCR) (NotDetected) Parainfluenza 1 (PCR) (NotDetected) Parainfluenza 2 (PCR) (NotDetected) Parainfluenza 3 (PCR) (NotDetected) Parainfluenza 4 (PCR) (NotDetected) RSV (RT-PCR) Negative (Neg) RSV (PCR) (NotDetected) Entero/Rhino (PCR) (NotDetected) 11/25/22 11/25/22 Range/Units 04:09 05:09 WBC (4.8-10.8) K/ul RBC (4.20-5.40) M/uL Hgb (12.0-16.0) g/dl Hct (37.0-47.0) % MCV (80.0-100.0) fL MCH (25.0-34.0) pg MCHC (32.0-36.0) g/dL RDW Std Deviation (36.4-46.3) fL RDW Coeff of Kashif (11.5-14.5) % Plt Count (130-400) K/uL MPV (9.4-12.4) fL Immature Gran % (Auto) % Neut % (Auto) % Lymph % (Auto) % [place] % (Auto) % Eos % (Auto) % Baso % (Auto) % Reticulocyte % (Auto) (0.5-2.0) % Neut # (Auto) (1.40-6.50) K/uL Lymph # (Auto) (1.2-3.4) K/uL [place] # (Auto) (0.11-0.59) K/uL Eos # (Auto) (0-0.50) K/uL Baso # (Auto) (0-0.2) K/uL Reticulocyte # (0.02-0.10) 10^6/uL Immature Gran # (Auto) (0.01-0.20) K/uL Absolute Nucleated RBC (0-0.12) K/uL Nucleated RBC % (auto) % Polychromasia Target Cells Stomatocytes ESR (0-20) mm/hr Sodium (136-145) mmol/L Potassium (3.5-5.1) mmol/L Chloride (98-107) mmol/L Carbon Dioxide (21-32) mmol/L Anion Gap (3-11) BUN (6-23) mg/dl Creatinine (0.6-1.2) mg/dl Est Cr Clr Drug Dosing ml/min Est GFR ( Amer) ml/min Est GFR (Non-Af Amer) ml/min BUN/Creatinine Ratio (10-20) Glucose (70-99(Fasting)) mg/dl Lactate 0.6 (0.4-2.0) mmol/L Calcium (8.6-10.3) mg/dl Total Bilirubin (0.2-1.0) mg/dl AST (13-39) U/L ALT (7-52) U/L Alkaline Phosphatase (34-104) U/L Troponin I High Sens (0-14) pg/ml Total Protein (6.0-8.3) gm/dl Albumin (3.4-5.0) gm/dl Globulin (2.5-4.0) gm/dl Albumin/Globulin Ratio (0.9-2) Procalcitonin (0-0.5) ng/ml HCG, Qual (Negative) Adenovirus (PCR) Not Detected (NotDetected) B. pertussis DNA (PCR) Not Detected (NotDetected) B.parapertussis DNA PCR Not Detected (NotDetected) C. pneumoniae DNA (PCR) Not Detected (NotDetected) Coronavirus OC43 (PCR) Not Detected (NotDetected) Coronavirus HKU1 (PCR) Not Detected (NotDetected) Coronavirus 229E (PCR) Not Detected (NotDetected) SARS-CoV-2 (PCR) Not Detected (Negative) Coronavirus NL63 (PCR) Not Detected (NotDetected) Human Metapneumovir PCR Not Detected (NotDetected) Influenza Type A (PCR) Not Detected (Neg) Influenza Type B (PCR) Not Detected (Neg) M. pneumoniae (PCR) Not Detected (NotDetected) Parainfluenza 1 (PCR) Not Detected (NotDetected) Parainfluenza 2 (PCR) Not Detected (NotDetected) Parainfluenza 3 (PCR) Not Detected (NotDetected) Parainfluenza 4 (PCR) Not Detected (NotDetected) RSV (RT-PCR) (Neg) RSV (PCR) Not Detected (NotDetected) Entero/Rhino (PCR) Not Detected (NotDetected) Administered Medications Sodium Chloride (Nss 1000ml) 1,000 mls @ 999 mls/hr IV .Q1H1M ONE Stop: 11/25/22 06:15 Last Admin: 11/25/22 05:25 Dose: 999 mls/hr Documented By: CC Discontinued Medications Hydromorphone HCl (Hydromorphone Inj 1 Mg/Ml Syringe) 1 mg IV NOW STA Stop: 11/25/22 03:52 Last Admin: 11/25/22 04:04 Dose: 1 mg Documented By: CC Hydromorphone HCl (Hydromorphone Inj 1 Mg/Ml Syringe) 1 mg IV NOW STA Stop: 11/25/22 05:16 Last Admin: 11/25/22 05:21 Dose: 1 mg Documented By: CC Hydromorphone HCl (Hydromorphone Inj 0.5 Mg/0.5 Ml Syr) 0.5 mg IV NOW STA Stop: 11/25/22 05:52 Last Admin: 11/25/22 06:06 Dose: 0.5 mg Documented By: CC Sodium Chloride (Nss 1000ml) 1,000 mls @ 999 mls/hr IV .Q1H1M ONE Stop: 11/25/22 04:53 Last Infusion: 11/25/22 05:58 Dose: 0 mls/hr Documented By: Admin: 11/25/22 04:01 Dose: 999 mls/hr Documented By: CC Ondansetron HCl (Ondansetron Inj 2 Mg/Ml 2 Ml Vial) 4 mg IV NOW STA Stop: 11/25/22 03:55 Last Admin: 11/25/22 04:02 Dose: 4 mg Documented By: CC Discharge Plan Visit Data Chief Complaint: Pain (Generalized) Stated Complaint: PAIN-SICKLE CELL CRISIS ED Provider: Yonatan Centeno ED Midlevel Provider: Shalini Dickerson Discharge Problem: Sickle cell disease with crisis, Leukocytosis Patient Disposition: Admitted As Inpatient Forms Stand Alone Forms: My [facility] Prescriptions Prescriptions: No Action cetirizine 10 mg tablet 10 mg PO HS ergocalciferol (vitamin D2) 1,250 mcg (50,000 unit) capsule 50,000 unit PO WK Rx Instructions: TAKES ON SATURDAYS folic acid 1 mg tablet 1 mg PO DAILY acetaminophen 325 mg tablet 650 mg PO DIRECTED PRN (Reason: Pain) oxycodone 10 mg tablet 10 mg PO BID PRN (Reason: pain) Qty: 31 0RF cefdinir 300 mg capsule 300 mg PO BID 14 Days Qty: 28 0RF oxycodone 5 mg tablet 5 mg PO Q8H PRN (Reason: pain) Qty: 9 0RF oxycodone 5 mg tablet 5 - 10 mg PO Q6 PRN (Reason: pain) Qty: 12 0RF Adakveo 10 mg/mL Solution See Rx Instructions .ROUTE .COMPLEX Rx Instructions: infusion monthly per pt hydromorphone 2 mg tablet 2 mg PO Q6H PRN (Reason: Pain) ondansetron 4 mg tablet,disintegrating 4 mg PO Q8H PRN (Reason: nausea and vomiting) oxycodone 5 mg tablet 5 - 10 mg PO Q6H Qty: 12 0RF Rx Instructions: Initial Treatment Referrals Referrals: [facility] [Primary Care Provider] -
[2022-11-25 04:24] LABS: Hematocrit (blood only) 29.6 % (37.0-47.0); Mean Corpuscular Hemoglobin 30.5 pg (25.0-34.0); Mean Corpuscular Hgb Conc 37.2 g/dL (32.0-36.0); Mean Platelet Volume 9.5 fL (9.4-12.4); Nucleated RBC # (auto) 0.07 K/uL (0-0.12); Nucleated RBC % (auto) 0.2 %; Platelet Count 321 K/uL (130-400); RDW Coefficient of Variation 14.7 % (11.5-14.5); RDW Standard Deviation 43.1 fL (36.4-46.3); Red Blood Count 3.61 M/uL (4.20-5.40); White Blood Count 30.79 K/ul (4.8-10.8)
[2022-11-25 04:27] LABS: Albumin Globulin Ratio 1.7 (0.9-2); Albumin Level 4.5 gm/dl (3.4-5.0); BUN Creatinine Ratio 12.7 (10-20); Bilirubin,Total 2.1 mg/dl (0.2-1.0); Calcium 9.3 mg/dl (8.6-10.3); Creatinine Clr Calc Pharmacy 114.8 ml/min; Est GFR (African American) 148.6 ml/min; Est GFR (Non-African American) 128.2 ml/min; Globulin 2.7 gm/dl (2.5-4.0); Potassium 3.8 mmol/L (3.5-5.1); Total Protein 7.2 gm/dl (6.0-8.3)
[2022-11-25 04:30] LABS: Basophils # (auto) 0.13 K/uL (0-0.2); Basophils % (auto) 0.4 %; Eosinophils # (auto) 0.21 K/uL (0-0.50); Eosinophils % (auto) 0.7 %; Immature Granulocytes # (auto) 0.19 K/uL (0.01-0.20); Immature Granulocytes % (auto) 0.6 %; Lymphocytes # (auto) 1.99 K/uL (1.2-3.4); Lymphocytes % (auto) 6.5 %; Monocytes # (auto) 3.02 K/uL (0.11-0.59); Monocytes % (auto) 9.8 %; Neutrophils # (auto) 25.25 K/uL (1.40-6.50); Polychromasia 1+; Reticulocyte % 6.3 % (0.5-2.0); Reticulocytes # 0.23 10^6/uL (0.02-0.10); Stomatocytes 1+; Target Cells 3+
[2022-11-25 04:31] LABS: Pregnancy Test, Serum Negative (Negative)
[2022-11-25 04:51] LABS: Influenza A virus by PCR Negative (Neg); Influenza B virus by PCR Negative (Neg); RSV by PCR Negative (Neg); SARS CoV2 RNA(COVID-19) Ceph NEGATIVE (Negative)
[2022-11-25 05:16] LABS: Troponin I High Sensitivity 3.2 pg/ml (0-14)
[2022-11-25] MEDS ORDERED: HYDROmorphone INJ 0.5 MG/0.5 ML SYR IV STA (05:51)
[2022-11-25 06:08] LABS: Adenovirus PCR Not Detected (NotDetected); Bordetella parapertussis PCR Not Detected (NotDetected); Bordetella pertussis PCR Not Detected (NotDetected); Chlamydia pneumoniae PCR Not Detected (NotDetected); Coronavirus 229E PCR Not Detected (NotDetected); Coronavirus CoV-2 (COVID19)PCR Not Detected (NotDetected); Coronavirus HKU1 PCR Not Detected (NotDetected); Coronavirus NL63 PCR Not Detected (NotDetected); Coronavirus OC43PCR Not Detected (NotDetected); Human Metapneumovirus PCR Not Detected (NotDetected); Influenza A PCR Not Detected (NotDetected); Influenza B PCR Not Detected (NotDetected); Mycoplasma pneumoniae PCR Not Detected (NotDetected); Parainfluenza Virus 1 PCR Not Detected (NotDetected); Parainfluenza Virus 2 PCR Not Detected (NotDetected); Parainfluenza Virus 3 PCR Not Detected (NotDetected); Parainfluenza Virus 4 PCR Not Detected (NotDetected); Respiratory Syncytial VirusPCR Not Detected (NotDetected); Rhinovirus/Enterovirus PCR Not Detected (NotDetected)
--- NOTE | 2022-11-25 06:58 | XRay Report ---
SINGLE VIEW CHEST CLINICAL HISTORY: Upper respiratory tract infection. Sickle cell disease. FINDINGS: An AP, portable, upright chest radiograph is compared to study dated 11/14/2022. The cardiom ediastinal silhouette is unremarkable. The lungs and pleural spaces are clear. No pneumothorax is see n. The bony thorax is grossly intact. IMPRESSION: No active disease in the chest. ACT 112: Negative or not required by law. Electronically signed by: Lakhwinder Syed M.D. 11/25/2022 6:57 AM
--- NOTE | 2022-11-25 07:27 | History & Physical Report ---
Date of Service November 25, 2022 Assessment & Plan (1) Leukocytosis: Plan: 22-year-old with sickle cell, anxiety, depression, who presents to the emergency room after waking up yesterday with back pain, leg pain, achiness, and severe fatigue. Now admitted for leukocytosis, hyperbilirubinemia likely secondary to sickle cell crisis. Leukocytosis/anemia/sickle cell -WBC 30.79 on admission (neutrophilic, monocytic predominance). Hemoglobin 11.0 (elevated reticulocyte count). -Procalcitonin negative, troponin negative, lactate negative. Qualitative hCG negative. Henderson-negative respiratory viral panel. -Hyperbilirubinemia, normocytic anemia suggest hemolytic anemia likely due to sickle cell pain crisis. -No evidence of UTI at this time. No sign of sepsis or infection at this time. Defer antibiotics for now. UA pending. Blood culture pending. * Admit to MedSurg * Tylenol 1000 mg p.o. every 8 hours scheduled * Oxycodone immediate release 5 mg p.o. every 4 hours as needed for moderate pain * Continue home folic acid. * IV Dilaudid 0.5 mg every 3 hours as needed for severe pain * Half-normal saline at 80 mL/h * O2 as needed. * Incentive spirometry * IV Zofran as needed * Ipratropium inhaler for congestion every 6 hours as needed for congestion. * Lovenox 40 mg SQ daily Anxiety -Takes sertraline 75 mg nightly at home. * Continue home regimen. Code: Full code Dispo: Med-Surg FEN/GI: NPO; 08/18 NS@80 mL/h DVT Prophylaxis: Lovenox 40 mg q24h PT/OT: No Consults: None (2) Sickle cell crisis: (3) Lower back pain: (4) Hyperbilirubinemia: (5) Anxiety: History of Present Illness Primary Care Provider: [facility] Kaylan is a 22-year-old with sickle cell, anxiety, depression, who presents to the emergency room after waking up yesterday with back pain, leg pain, achiness, and severe fatigue. ROS + nasal congestion, rhinorrhea. Prior to this, she was given antibiotic treatment here for UTI and had been taking it incorrectly (once daily, instead of twice daily). However, she denies dysuria, hematuria, or abdominal pain. She had also taken oxycodone 5 mg x 3 doses without any symptomatic relief. Therefore, she decided to come in. In the emergency room, vitals were mostly within normal limits. Labs were notable for leukocytosis of 30.79, and hyperbilirubinemia of 2.1. LFTs, transaminases all normal. Troponin was negative. Lactate normal. Respiratory viral panel also negative. She received IV hydromorphone 1 mg x 2 doses, and IV NS bolus. On admission, she corroborates HPI, except to say that the leg pain is resolved. She also reports that the back pain is still severe despite administered IV pain meds. She denies headache, chest pain, shortness of breath, nausea, or lower urinary tract symptoms. She received an additional dose of IV hydromorphone 0.5 mg for the aforementioned back pain, and was admitted for further management. Allergies Allergy/AdvReac Type Severity Reaction Status Date / Time peanut Allergy Intermediate ITCHY HIVES Verified 10/29/22 02:53 Home Medications Medication Instructions Recorded Confirmed Type cetirizine 10 mg tablet 10 mg PO HS 04/18/20 11/25/22 History ergocalciferol (vitamin D2) 1,250 50,000 unit PO WK 04/18/20 11/25/22 History mcg (50,000 unit) capsule folic acid 1 mg tablet 1 mg PO DAILY 08/01/21 11/25/22 History acetaminophen 325 mg tablet 650 mg PO DIRECTED PRN Pain 12/13/21 11/25/22 History crizanlizumab-tmca 10 mg/mL See Rx Instructions .Route .COMPLEX 06/30/22 11/25/22 History intravenous solution (Adakveo) oxycodone 10 mg tablet 10 mg PO BID PRN pain #31 tabs 09/03/22 11/25/22 Rx hydromorphone 2 mg tablet 2 mg PO Q6H PRN Pain 10/29/22 11/25/22 History ondansetron 4 mg disintegrating 4 mg PO Q8H PRN nausea and vomiting 10/29/22 11/25/22 History tablet oxycodone 5 mg tablet 5 - 10 mg PO Q6H #12 tabs 10/29/22 11/25/22 Rx cefdinir 300 mg capsule 300 mg PO BID 14 days #28 caps 11/14/22 11/25/22 Rx oxycodone 5 mg tablet 5 - 10 mg PO Q6 PRN pain #12 tabs 11/14/22 11/25/22 Rx oxycodone 5 mg tablet 5 mg PO Q8H PRN pain #9 tabs 11/14/22 11/25/22 Rx Past Med/Surg History Medical History Abnormal LFTs Anxiety Asthma Back pain Constipation COVID-19 Influenza A Leukocytosis Parainfluenza Pneumonia Pyelonephritis Seasonal allergies Sepsis Sepsis Sickle cell anemia Sickle cell anemia with crisis Sickle cell crisis Sickle cell crisis Splenomegaly Transaminitis Vaginal ulceration Surgical History No pertinent past surgical history Family History Brother Sickle cell anemia Social History Smoking Status: Never smoker Second Hand Exposure: No; Hx Alcohol Use: No Hx Substance Use: No Preferred Language: Georgian Communication Ability: Effective Registered Radiographer Required: No Beliefs That Will Affect Care: None marital status: Single Current Living Situation: Other Current Living Situation Comment: Lives with roomates Other Information That Helps Us Care for You: No Feels Safe at Home: Yes Safety Concerns: Feels Safe At This Time Assistive Devices: None Review of Systems Review of Systems: All systems reviewed & are unremarkable except as noted in HPI & below Physical Exam Physical Exam: General: Mild to moderate distress HEENT: PERRLA. Normal conjunctiva, anicteric sclera. Oropharynx normal. Respiratory: Normal respiratory effort, CTABL. Cardiovascular: RRR without murmurs, gallops, or rubs. No pedal edema. GI: Soft abdomen with normal bowel sounds heard on auscultation. Nontender x4 quadrants Neuro: Alert and oriented x3. Results & Data Results & Data Vital Signs (Past 12 Hours) Vital Signs Temp Pulse Pulse Resp BP BP Pulse Ox 11/25/22 05:16 90 17 110/74 100 11/25/22 04:10 105 H 17 123/78 98 11/25/22 04:07 107 H 17 100 11/25/22 04:01 104 H 11/25/22 03:40 36.5 C 119 H 16 113/69 100 O2 Del Method 11/25/22 05:16 Room Air 11/25/22 04:10 Room Air 11/25/22 04:07 Room Air 11/25/22 04:01 11/25/22 03:40 Room Air Supervising Physician Co-Signing Physician Notes Attending addendum: I have physically seen this patient, have supervised the medical residents activities, and agree with the H&P unless as otherwise noted. Assessment and Plan: Sickle cell crisis- WBC 30.7 infection versus hemoconcentration versus demargination versus combination Pro-Maicol negative Follow urine culture sensitivity, follow blood culture and sensitivity Acetaminophen 1000 mg every 8 hours as needed for mild pain or fever Oxycodone 5 mg p.o. every 4 hours as needed for moderate pain Dilaudid 0.5 mg IV every 3 hours as needed for severe pain IV fluids as noted Zofran 4 mg IV every 6 hours as needed Lovenox 40 mg subcu daily Anxiety- Continue sertraline 75 mg daily Resident Activity Tracking Resident Involvement: Resident Care Provided Care Provided: Adult Hospital Medicine (3) Lower back pain Back pain laterality: bilateral Chronicity: acute Sciatica presence: without sciatica Qualified Code(s): M54.50 - Low back pain, unspecified
[2022-11-25 09:20] LABS: Appearance Urine Clear (Clear); Bilirubin Urine Negative (Negative); Blood Urine Negative (Negative); Color Urine Yellow; Glucose Urine UA Negative (Negative); Ketones Urine Negative (Negative); Leukocyte Esterase Urine 1+ (Negative); Nitrite Urine Negative (Negative); Protein Urine Negative (Negative); Specific Gravity Urine 1.015 (1.000-1.030); Urobilinogen Urine Negative (Negative); pH Urine 5.5 (4.5-7.5)
[2022-11-25] MEDS ORDERED: HYDROmorphone INJ 0.5 MG/0.5 ML SYR IV PRN (09:22)
[2022-11-25] MEDS ORDERED: oxyCODONE HCL IR 5 MG TAB (IMMEDIATE RELEASE) PO PRN (09:22)
[2022-11-25] MEDS ORDERED: IPRATROPIUM BROMIDE HFA INHALER INH PRN (09:22)
[2022-11-25 09:42] LABS: Epithelial Cell Urine 20-30 /lpf (0-5); RBC Urine 0-4 /hpf (0-4)
[2022-11-25 09:43] LABS: Bacteria Urine 1+ (Negative); Hyaline Casts Urine 0-5 /lpf (0-5)
[2022-11-25] MEDS: ENOXAPARIN INJ 40 MG/0.4 ML SYR SQ SCH (09:50)
[2022-11-25] MEDS ORDERED: NALOXONE HCL 0.4 MG/1 ML VIAL/CARP IV PRN (10:14)
[2022-11-25] MEDS: SODIUM CHLORIDE 0.45 % 1,000 ML IV SCH (10:53)
[2022-11-25] MEDS: cefTRIAXone SODIUM 2,000 MG in DEXTROSE 5% 50 ML IV SCH (10:53)
[2022-11-25] MEDS: FOLIC ACID 1 MG TAB PO SCH (10:54)
[2022-11-25] MEDS: POLYETHYLENE (MIRALAX) 17 GM PACK PO SCH (10:54)
[2022-11-25] MEDS: ACETAMINOPHEN 500 MG TAB PO SCH ×2 (10:58→17:03)
[2022-11-25] MEDS: HYDROmorphone PCA 30 MG/30 ML IV PRN (11:31)
[2022-11-25] MEDS: SODIUM CHLORIDE 0.9% 1000ML 1,000 ML IV SCH (11:31)
--- NOTE | 2022-11-25 16:36 | Communication Note ---
Date of Service: November 25, 2022 Seen in follow-up from early a.m. admission. Back pain. Does have some nasal congestion, no chest pain or shortness of breath. Previous notes reviewed. Vitals noted, appearing comfortable overall fortunately at this time. No respiratory distress. No clearly notable CVA tenderness, but does have palpable and reproducible low back tenderness. Sickle cell acute pain crisisappears to have been precipitated by infectionshe appears to have both a viral sinusitis, and likely some residual of her pyelonephritismost evidenced by her white count of 31. It appears that prior treatment was incomplete on account of missing dosescultures are pending, but given partial treatment, it would not surprise me if they are negative. Ceftriaxone for now, follow cultures. 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 Otherwise as above.
[2022-11-25] MEDS: SERTRALINE HCL 50 MG TABLET PO SCH (20:13)
[2022-11-25] MEDS: ONDANSETRON INJ 2 MG/ML 2 ML VIAL IV PRN (20:53)
[2022-11-26] MEDS: ACETAMINOPHEN 500 MG TAB PO SCH ×3 (01:30→16:25)
[2022-11-26] MEDS: SODIUM CHLORIDE 0.45 % 1,000 ML IV SCH ×3 (03:16→20:49)
[2022-11-26 08:36] LABS: Basophils # (auto) 0.08 K/uL (0-0.2); Basophils % (auto) 0.4 %; Eosinophils # (auto) 0.39 K/uL (0-0.50); Hematocrit (blood only) 26.1 % (37.0-47.0); Hemoglobin 9.7 g/dl (12.0-16.0); Immature Granulocytes # (auto) 0.08 K/uL (0.01-0.20); Immature Granulocytes % (auto) 0.4 %; Lymphocytes % (auto) 12.1 %; Mean Corpuscular Hemoglobin 30.5 pg (25.0-34.0); Mean Corpuscular Hgb Conc 37.2 g/dL (32.0-36.0); Mean Corpuscular Volume 82.1 fL (80.0-100.0); Mean Platelet Volume 9.7 fL (9.4-12.4); Neutrophils # (auto) 15.33 K/uL (1.40-6.50); Neutrophils % (auto) 77.1 %; Nucleated RBC # (auto) 0.03 K/uL (0-0.12); Nucleated RBC % (auto) 0.2 %; Platelet Count 295 K/uL (130-400); RDW Coefficient of Variation 14.4 % (11.5-14.5); RDW Standard Deviation 42.5 fL (36.4-46.3); Red Blood Count 3.18 M/uL (4.20-5.40); White Blood Count 19.88 K/ul (4.8-10.8)
[2022-11-26 08:59] LABS: Alanine Aminotransferase 13 U/L (7-52); Albumin Globulin Ratio 1.7 (0.9-2); Alkaline Phosphatase 51 U/L (34-104); Anion Gap 4 (3-11); Aspartate Aminotransferase 22 U/L (13-39); Bilirubin,Total 1.7 mg/dl (0.2-1.0); Blood Urea Nitrogen 3 mg/dl (6-23); Carbon Dioxide 26 mmol/L (21-32); Chloride 107 mmol/L (98-107); Creatinine Clr Calc Pharmacy 144.7 ml/min; Est GFR (African American) > 150.0 ml/min; Est GFR (Non-African American) 138.4 ml/min; Globulin 2.4 gm/dl (2.5-4.0); Glucose 93 mg/dl (70-99(Fasting)); Magnesium 1.9 mg/dl (1.7-2.4); Phosphorus 3.9 mg/dl (2.5-4.9); Potassium 3.9 mmol/L (3.5-5.1); Sodium 137 mmol/L (136-145); Total Protein 6.4 gm/dl (6.0-8.3)
[2022-11-26] MEDS: ENOXAPARIN INJ 40 MG/0.4 ML SYR SQ SCH (09:52)
[2022-11-26] MEDS: FOLIC ACID 1 MG TAB PO SCH (09:53)
[2022-11-26] MEDS: POLYETHYLENE (MIRALAX) 17 GM PACK PO SCH (09:53)
[2022-11-26] MEDS: cefTRIAXone SODIUM 2,000 MG in DEXTROSE 5% 50 ML IV SCH (10:05)
[2022-11-26] MEDS: MAGNESIUM HYDROXIDE SUSP 30 ML UDC PO PRN ×2 (10:24→18:31)
--- NOTE | 2022-11-26 15:27 | Hospitalist Progress Note ---
Date of Service November 26, 2022 Assessment & Plan (1) Leukocytosis: Plan: 22-year-old with sickle cell, anxiety, depression, who presents to the emergency room after waking up yesterday with back pain, leg pain, achiness, and severe fatigue. Now admitted for leukocytosis, hyperbilirubinemia likely secondary to sickle cell crisis. Leukocytosis/anemia/sickle cell -WBC 30.79 on admission (neutrophilic, monocytic predominance). Hemoglobin 11.0 (elevated reticulocyte count). -Procalcitonin negative, troponin negative, lactate negative. Qualitative hCG negative. Henderson-negative respiratory viral panel. -Hyperbilirubinemia, normocytic anemia suggest hemolytic anemia likely due to sickle cell pain crisis. -Urine and blood cultures negative to date, however, suspect negative urine culture due to already being on antibiotics prior to presentation. * Admit to MedSurg * Tylenol 1000 mg p.o. every 8 hours scheduled * Given LEATHERSMITH pump with dilaudid, will titrate to oral meds when able to tolerate * Continue home folic acid. * Half-normal saline at 80 mL/h * O2 as needed. * Incentive spirometry * IV Zofran as needed * Ipratropium inhaler for congestion every 6 hours as needed for congestion. * Lovenox 40 mg SQ daily -Once patient is able to tolerate pain with just p.o. medication, discharged with total 14-day course of cefdinir twice daily (minus in hospital antibiotic days) Anxiety -Takes sertraline 75 mg nightly at home. * Continue home regimen. Code: Full code Dispo: Med-Surg FEN/GI: Regular diet, 1/2 NS at 80 cc/hr DVT Prophylaxis: Lovenox 40 mg q24h PT/OT: No Consults: None (2) Sickle cell crisis: (3) Lower back pain: (4) Hyperbilirubinemia: (5) Anxiety: Admission and Anticipated Discharge Date Admission Date: November 25, 2022 Supervising Physician Co-Signing Physician Notes I personally examined the patient and verified all knox points of history and exam, discussed case, and agree with decision making with Dr Sánchez Feeling better. Pain feeling better controlled. Less congested. Vitals noted, in general she is resting comfortably no distress. Breathing unlabored no accessory muscle use good effort. Skin shows no rashes no pallor or icterus. Exam otherwise as above. Pyelonephritis with sepsis (leukocytosis and tachycardia) present on admissionsuspect culture-negative because of partially treated, but unfortunately suspect refractory due to partially treated as well (will need to reemphasize antibiotic adherence when she is stable for discharge at this time). Continue ceftriaxone, if culture shows no yield, really given that it was pansensitive E. coli before cefdinir should be a quite reasonable antibiotic to continue withparticularly given that she is improvingwould treat for 14 total days of antibiotics, and will reeducate on the importance of completing the course given her overall situation. Sickle cell acute pain crisisimproving. Continue IV fluids and Dilaudid LEATHERSMITH. Acute viral sinusitisappears to be improving as well. Otherwise as above. Subjective Patient seen at bedside this morning. No acute events reported overnight. Patient does report an improvement in her pain overall and does feel adequately covered with the LEATHERSMITH pump at this time. Does not feel ready to be discharged as of yet but feels optimistic that she should be ready by Thursday. Overall clinically improving. Ate breakfast and lunch today without any difficulty. No repeats of nausea and vomiting like she had dinner last night. No new or additional complaints at this time. Review of Systems Review of Systems: All systems reviewed & are unremarkable except as noted in HPI & below Physical Exam Constitutional: WD/WN, vitals as above Eyes: + anicteric sclerae ENMT: Congested Neck: normal visual inspection Respiratory: normal respiratory effort, lungs clear to auscultation Cardiovascular: RRR, no murmur, no edema Gastrointestinal (Abdomen): Inspection/Auscultation: abdomen normal to inspection Musculoskeletal: Head/Neck/Chest: normocephalic and head atraumatic Skin: no rashes, warm and dry Neurologic: moves all extremities Psychiatric: A+Ox3, euthymic affect Lymphatic: no cervical or axillary lymphadenopathy Results & Data Results & Data Vital Signs (Past 12 Hours) Vital Signs Temp Pulse Resp BP Pulse Ox O2 Del Method 11/26/22 14:44 36.6 C 75 16 108/67 97 Room Air 11/26/22 08:01 36.6 C 80 16 107/68 97 Room Air 11/26/22 04:08 36.7 C 99 H 18 120/69 96 Room Air (3) Lower back pain Back pain laterality: bilateral Chronicity: acute Sciatica presence: without sciatica Qualified Code(s): M54.50 - Low back pain, unspecified
[2022-11-26] MEDS: SODIUM CHLORIDE 0.9% 1000ML 1,000 ML IV SCH (15:59)
[2022-11-26] MEDS: SENNA 8.6 MG TAB PO PRN (18:31)
--- NOTE | 2022-11-26 19:38 | Billing Data ---
Date of Service November 26, 2022 Coding Level of Care Code 50473 SUB INP/OBS CARE MIN
[2022-11-26] MEDS: SERTRALINE HCL 50 MG TABLET PO SCH (20:48)
[2022-11-26] MEDS: guaiFENesin 600 MG TABCR PO SCH (20:49)
[2022-11-26] MEDS: ONDANSETRON INJ 2 MG/ML 2 ML VIAL IV PRN (23:11)
[2022-11-27] MEDS: ACETAMINOPHEN 500 MG TAB PO SCH ×3 (02:53→17:56)
[2022-11-27] MEDS: HYDROmorphone PCA 30 MG/30 ML IV PRN (05:11)
--- NOTE | 2022-11-27 06:05 | Billing Data ---
Date of Service November 27, 2022 Coding Level of Care Code 34142 INT INP/OBS CARE
[2022-11-27 07:46] LABS: Basophils # (auto) 0.09 K/uL (0-0.2); Basophils % (auto) 0.6 %; Eosinophils # (auto) 0.77 K/uL (0-0.50); Hematocrit (blood only) 25.7 % (37.0-47.0); Hemoglobin 9.4 g/dl (12.0-16.0); Immature Granulocytes # (auto) 0.06 K/uL (0.01-0.20); Immature Granulocytes % (auto) 0.4 %; Lymphocytes # (auto) 2.29 K/uL (1.2-3.4); Lymphocytes % (auto) 14.9 %; Mean Corpuscular Hemoglobin 30.2 pg (25.0-34.0); Mean Corpuscular Hgb Conc 36.6 g/dL (32.0-36.0); Mean Corpuscular Volume 82.6 fL (80.0-100.0); Mean Platelet Volume 9.7 fL (9.4-12.4); Monocytes # (auto) 1.49 K/uL (0.11-0.59); Monocytes % (auto) 9.7 %; Neutrophils # (auto) 10.65 K/uL (1.40-6.50); Neutrophils % (auto) 69.4 %; Nucleated RBC # (auto) 0.04 K/uL (0-0.12); Nucleated RBC % (auto) 0.3 %; Platelet Count 297 K/uL (130-400); RDW Coefficient of Variation 14.2 % (11.5-14.5); RDW Standard Deviation 41.7 fL (36.4-46.3); Red Blood Count 3.11 M/uL (4.20-5.40); White Blood Count 15.35 K/ul (4.8-10.8)
[2022-11-27 08:10] LABS: Alanine Aminotransferase 28 U/L (7-52); Albumin Globulin Ratio 1.6 (0.9-2); Albumin Level 3.8 gm/dl (3.4-5.0); Alkaline Phosphatase 47 U/L (34-104); Anion Gap 3 (3-11); Aspartate Aminotransferase 33 U/L (13-39); BUN Creatinine Ratio 8.8 (10-20); Bilirubin,Total 1.4 mg/dl (0.2-1.0); Blood Urea Nitrogen 5 mg/dl (6-23); Calcium 8.9 mg/dl (8.6-10.3); Carbon Dioxide 26 mmol/L (21-32); Chloride 107 mmol/L (98-107); Creatinine Clr Calc Pharmacy 126.9 ml/min; Est GFR (African American) > 150.0 ml/min; Est GFR (Non-African American) 132.5 ml/min; Globulin 2.4 gm/dl (2.5-4.0); Glucose 87 mg/dl (70-99(Fasting)); Potassium 4.1 mmol/L (3.5-5.1); Sodium 136 mmol/L (136-145); Total Protein 6.2 gm/dl (6.0-8.3)
[2022-11-27] MEDS: guaiFENesin 600 MG TABCR PO SCH ×2 (08:17→21:56)
[2022-11-27] MEDS: FOLIC ACID 1 MG TAB PO SCH (08:17)
[2022-11-27] MEDS: ENOXAPARIN INJ 40 MG/0.4 ML SYR SQ SCH (08:17)
[2022-11-27] MEDS: POLYETHYLENE (MIRALAX) 17 GM PACK PO SCH (08:17)
[2022-11-27 08:27] LABS: Toxic Vacuolation 1+
[2022-11-27] MEDS: SERTRALINE HCL 50 MG TABLET PO SCH ×2 (09:22→21:55)
[2022-11-27] MEDS: SENNA 8.6 MG TAB PO PRN (11:00)
[2022-11-27] MEDS ORDERED: POLYETHYLENE (MIRALAX) 17 GM PACK PO ONE (11:23)
[2022-11-27] MEDS: SODIUM CHLORIDE 0.9% 1000ML 1,000 ML IV SCH (13:43)
[2022-11-27] MEDS: SODIUM CHLORIDE 0.45 % 1,000 ML IV SCH (13:43)
[2022-11-27] MEDS: ONDANSETRON INJ 2 MG/ML 2 ML VIAL IV PRN (15:45)
--- NOTE | 2022-11-27 18:12 | Hospitalist Progress Note ---
Date of Service November 27, 2022 Assessment & Plan (1) Leukocytosis: Plan: 22-year-old with sickle cell, anxiety, depression, who presents to the emergency room after waking up yesterday with back pain, leg pain, achiness, and severe fatigue. Now admitted for leukocytosis, hyperbilirubinemia likely secondary to sickle cell crisis. Leukocytosis/anemia/sickle cell -WBC 30.79 on admission (neutrophilic, monocytic predominance). Hemoglobin 11.0 (elevated reticulocyte count). Downtrending -Procalcitonin negative, troponin negative, lactate negative. Qualitative hCG negative. Henderson-negative respiratory viral panel. -Hyperbilirubinemia, normocytic anemia suggest hemolytic anemia likely due to sickle cell pain crisis. -Urine and blood cultures negative to date, however, suspect negative urine culture due to already being on antibiotics prior to presentation. * Admit to MedSurg * Tylenol 1000 mg p.o. 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 * Half-normal saline at 80 mL/h * O2 as needed. * Incentive spirometry * IV Zofran as needed * Ipratropium inhaler for congestion every 6 hours as needed and mucinex bid for congestion. * Lovenox 40 mg SQ daily -Once patient is able to tolerate pain with just p.o. medication, discharged with total 14-day course of cefdinir twice daily (minus in hospital antibiotic days) Anxiety -Takes sertraline 75 mg nightly at home. * Continue home regimen. Code: Full code Dispo: Med-Surg FEN/GI: Regular diet, 1/2 NS at 80 cc/hr DVT Prophylaxis: Lovenox 40 mg q24h PT/OT: No Consults: None (2) Sickle cell crisis: (3) Lower back pain: (4) Hyperbilirubinemia: (5) Anxiety: Admission and Anticipated Discharge Date Admission Date: November 25, 2022 Supervising Physician Co-Signing Physician Notes I personally examined the patient and verified all knox points of history and exam, discussed case, and agree with decision making with Dr Sánchez Predominantly feeling better, main complaint is nausea. She is able to eat, she has not vomited today, but she feels nauseated off and on. Has not had a bowel movement since prior to admission. Vitals noted, in general she is resting comfortably no distress. Breathing unlabored no accessory muscle use good effort. Skin shows no rashes no pallor or icterus. Abdomen soft nondistended nontender no masses organomegaly. Exam otherwise as above. Pyelonephritis with sepsis (leukocytosis and tachycardia) present on admissionsuspect culture-negative because of partially treated, but unfortunately suspect refractory due to partially treated as well (will need to reemphasize antibiotic adherence when she is stable for discharge at this time). Continue ceftriaxone, and with culture not showing pathogenic bacteria at this time, given that it was pansensitive E. coli before cefdinir should be a quite reasonable antibiotic to continue withparticularly given that she is improvingwould treat for 14 total days of antibiotics, and will reeducate on the importance of completing the course given her overall situation. Sickle cell acute pain crisisappears to be improving. 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 Acute viral sinusitisappears to be improving as well. Nausealikely related to constipationMiraLAX. Otherwise as above. Subjective Patient seen at bedside this morning. No acute events reported overnight. Patient reports improvement in her pain compared to yesterday. Continues to feel better as time goes by. Seems to be improving with antibiotics as well. Congestion seems to also be improving. No new complaints voiced at today's visit. Review of Systems Review of Systems: All systems reviewed & are unremarkable except as noted in HPI & below Physical Exam Constitutional: WD/WN, vitals as above Eyes: + anicteric sclerae Neck: normal visual inspection Respiratory: normal respiratory effort, lungs clear to auscultation Cardiovascular: RRR, no murmur, no edema Gastrointestinal (Abdomen): Inspection/Auscultation: abdomen normal to inspection Musculoskeletal: Head/Neck/Chest: normocephalic and head atraumatic Skin: no rashes, warm and dry Neurologic: moves all extremities Psychiatric: A+Ox3, euthymic affect Lymphatic: no cervical or axillary lymphadenopathy Results & Data Results & Data Vital Signs (Past 12 Hours) Vital Signs Temp Pulse Pulse Resp BP Pulse Ox O2 Del Method 11/27/22 14:46 36.8 C 78 16 102/66 98 Room Air 11/27/22 11:03 37.2 C 81 18 92/57 L 97 Room Air 11/27/22 07:26 36.6 C 76 16 113/81 99 Room Air (3) Lower back pain Back pain laterality: bilateral Chronicity: acute Sciatica presence: without sciatica Qualified Code(s): M54.50 - Low back pain, unspecified
--- NOTE | 2022-11-27 18:41 | Billing Data ---
Date of Service November 27, 2022 Coding Level of Care Code 86452 SUB INP/OBS CARE MIN
[2022-11-28] MEDS: SODIUM CHLORIDE 0.45 % 1,000 ML IV SCH (01:50)
[2022-11-28] MEDS: ACETAMINOPHEN 500 MG TAB PO SCH ×2 (01:53→08:51)
[2022-11-28 07:18] LABS: Hematocrit (blood only) 25.4 % (37.0-47.0); Hemoglobin 9.4 g/dl (12.0-16.0); Mean Corpuscular Hemoglobin 30.2 pg (25.0-34.0); Mean Corpuscular Volume 81.7 fL (80.0-100.0); Mean Platelet Volume 10.3 fL (9.4-12.4); Nucleated RBC # (auto) 0.04 K/uL (0-0.12); Nucleated RBC % (auto) 0.4 %; Platelet Count 278 K/uL (130-400); RDW Coefficient of Variation 14.2 % (11.5-14.5); RDW Standard Deviation 41.4 fL (36.4-46.3); Red Blood Count 3.11 M/uL (4.20-5.40); White Blood Count 9.82 K/ul (4.8-10.8)
[2022-11-28 07:19] LABS: Alanine Aminotransferase 66 U/L (7-52); Albumin Globulin Ratio 1.6 (0.9-2); Albumin Level 3.8 gm/dl (3.4-5.0); Alkaline Phosphatase 53 U/L (34-104); Anion Gap 4 (3-11); Aspartate Aminotransferase 63 U/L (13-39); BUN Creatinine Ratio 8.5 (10-20); Bilirubin,Total 1.3 mg/dl (0.2-1.0); Blood Urea Nitrogen 5 mg/dl (6-23); Calcium 8.9 mg/dl (8.6-10.3); Carbon Dioxide 26 mmol/L (21-32); Chloride 106 mmol/L (98-107); Creatinine Clr Calc Pharmacy 122.6 ml/min; Est GFR (African American) > 150.0 ml/min; Globulin 2.4 gm/dl (2.5-4.0); Glucose 99 mg/dl (70-99(Fasting)); Magnesium 1.7 mg/dl (1.7-2.4); Phosphorus 3.6 mg/dl (2.5-4.9); Potassium 3.8 mmol/L (3.5-5.1); Sodium 136 mmol/L (136-145); Total Protein 6.2 gm/dl (6.0-8.3)
[2022-11-28 07:23] LABS: Basophils # (auto) 0.13 K/uL (0-0.2); Basophils % (auto) 1.3 %; Eosinophils % (auto) 9.2 %; Immature Granulocytes # (auto) 0.02 K/uL (0.01-0.20); Immature Granulocytes % (auto) 0.2 %; Lymphocytes # (auto) 2.91 K/uL (1.2-3.4); Lymphocytes % (auto) 29.7 %; Monocytes # (auto) 1.08 K/uL (0.11-0.59); Neutrophils # (auto) 4.76 K/uL (1.40-6.50); Neutrophils % (auto) 48.6 %; Polychromasia 1+; Stomatocytes 1+; Target Cells 2+; Tear Drop Cells 1+
[2022-11-28] MEDS: FOLIC ACID 1 MG TAB PO SCH (08:44)
[2022-11-28] MEDS: guaiFENesin 600 MG TABCR PO SCH (08:44)
[2022-11-28] MEDS: POLYETHYLENE (MIRALAX) 17 GM PACK PO SCH (08:45)
[2022-11-28] MEDS: ENOXAPARIN INJ 40 MG/0.4 ML SYR SQ SCH (08:45)
--- NOTE | 2022-11-28 08:45 | Discharge Summary ---
Date of Service November 28, 2022 Admission HPI Per Admitting Provider Kaylan is a 22-year-old with sickle cell, anxiety, depression, who presents to the emergency room after waking up yesterday with back pain, leg pain, achiness, and severe fatigue. ROS + nasal congestion, rhinorrhea. Prior to this, she was given antibiotic treatment here for UTI and had been taking it incorrectly (once daily, instead of twice daily). However, she denies dysuria, hematuria, or abdominal pain. She had also taken oxycodone 5 mg x 3 doses without any symptomatic relief. Therefore, she decided to come in. In the emergency room, vitals were mostly within normal limits. Labs were notable for leukocytosis of 30.79, and hyperbilirubinemia of 2.1. LFTs, transaminases all normal. Troponin was negative. Lactate normal. Respiratory viral panel also negative. She received IV hydromorphone 1 mg x 2 doses, and IV NS bolus. On admission, she corroborates HPI, except to say that the leg pain is resolved. She also reports that the back pain is still severe despite administered IV pain meds. She denies headache, chest pain, shortness of breath, nausea, or lower urinary tract symptoms. She received an additional dose of IV hydromorphone 0.5 mg for the aforementioned back pain, and was admitted for further management. Admission Exam Per Admitting Provider General: Mild to moderate distress HEENT: PERRLA. Normal conjunctiva, anicteric sclera. Oropharynx normal. Respiratory: Normal respiratory effort, CTABL. Cardiovascular: RRR without murmurs, gallops, or rubs. No pedal edema. GI: Soft abdomen with normal bowel sounds heard on auscultation. Nontender x4 quadrants Neuro: Alert and oriented x3. Principal Diagnosis sickle cell crisis, pyelonephritis Discharge Exam GENERAL: No acute distress. Well developed and well nourished. Vital signs reviewed as above. EYES: EOMI. Anicteric sclerae. HENT: Moist mucous membranes. RESPIRATORY: Clear to auscultation bilaterally. No wheezing, rales, or rhonchi. CARDIOVASCULAR: Regular rate and rhythm. No murmurs. No JVD. ABDOMEN: Soft, non-tender and non-distended. Normal bowel sounds. EXTREMITIES: No gross deformities. No edema. Non-tender. SKIN: Warm, dry. NEUROLOGIC: A/O x3. Normal speech. No focal neurological deficits. PSYCHIATRIC: Cooperative. Appropriate mood and affect. Discharge Data Allergies Allergy/AdvReac Type Severity Reaction Status Date / Time peanut Allergy Intermediate ITCHY HIVES Verified 10/29/22 02:53 Consultations 11/25/22 05:22 ED Decision to Admit Stat Hospital Course (1) Leukocytosis: 22-year-old with sickle cell, anxiety, depression, admitted on 11/25/22 for sickle cell crisis secondary to pyelonephritis. Sickle cell crisis secondary to pyelonephritis -WBC 30.79 on admission (neutrophilic, monocytic predominance); improved to 9.82 on day of discharge. -Procalcitonin negative, troponin negative, lactate negative. Qualitative hCG negative. Henderson-negative respiratory viral panel. -Hgb 11.0 to 9.4 (baseline). -Hyperbilirubinemia, normocytic anemia suggest hemolytic anemia likely due to sickle cell pain crisis. -Urine and blood cultures negative to date, however, suspect negative urine culture due to already being on antibiotics prior to presentation. -Patient's symptoms were managed on MedSurg with pain regimen including Tylenol 1000 mg p.o. 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 She also received IVF with 1/2 NS at 80 cc/hr and IV Zofran prn. -Patient did well and was discharged with po pain med regimen -Continue home folic acid -For the pyelonephritis, patient received IV ceftriaxone. Discussed with patient importance of adequately treating her infection to avoid recurrent sickle cell crisis secondary to infection. Patient was discharged with rx for cefdinir BID x11 days to complete total duration of 14 day abx therapy. Discussed need to stay well hydrated and rest, as well. Anxiety -Continue home regimen of sertraline 75 mg nightly at home. Code: Full code Dispo: discharged to home 11/28 FEN/GI: Regular diet, 1/2 NS at 80 cc/hr DVT Prophylaxis: received Lovenox 40 mg q24h (2) Sickle cell crisis: (3) Lower back pain: (4) Hyperbilirubinemia: (5) Anxiety: Total Time Total Time Spent Total Time Spent (In Minutes): <30 Discharge Plan Discharge Items Patient Disposition: Home - Self-Care Reason For Visit: SICKLE CELL CRISIS Discharge Diagnosis: sickle cell crisis, pyleonephritis Activity: Per Instructions section Non-emergency contact: Primary Care Provider Call non-emergency contact if: you have any medication questions, your symptoms worsen and your pain is not controlled Follow-up/Referrals: [facility] [Primary Care Provider] - (FOLLOW UP WITH [facility] 7-10 BUSINESS DAYS AFTER DISCHARGE.) Diet: Regular Addtl Attending Provider Instructions: Kaylan, It was our pleasure to care for you at [facility] from 11/25/22 to 11/28/22. You initially presented to the emergency room with concern for low back pain and fatigue. It was determined that you have a kidney infection which causes an associated sickle cell crisis. Thankfully, the infection is getting better and your pain is under control, so we feel that it is safe for you to be discharged home.It is VERY IMPORTANT that you complete the remainder of the antibiotic therapy as prescribed to continue to treat the kidney infection so that the infection completely goes away and stays away. If the infection is not completely treated, the concern would be that it could worsen another sickle cell crisis. A discharge summary will be sent to your primary care physician to ensure continuity of care. Please bring this discharge summary with you to your next office appointment so that your provider can review it at that time. Follow-up appointments: Make a follow-up appointment with your PCP within the next week. It is very important that you follow up with them shortly after discharge from the hospital. Keep all your follow-up appointments as already scheduled. If you cannot make an appointment, notify your provider. Medications: Your medication list has been reviewed and reconciled upon discharge to ensure accuracy and continuity of care. An updated list of all your medications is included with your hospital discharge paperwork. Please review this list closely, and make note of any changes. A new medication, Cefdinir, has been added to your medication list. This medication is an antibiotic used to treat your kidney infection. Please take this medication TWICE A DAY; it will be completed on Thursday, 12/09. A prescription for this medication has been sent to your pharmacy ([]). You have also been given a script for oxycodone. Please take these pain medications as prescribed. If you have any issues filling these prescriptions, please call [phone] and ask to leave a message for Dr. Sutton. Take your medications as instructed; do not skip a dose of your medicines. Make sure all of your doctors know every medicine you are taking (including [id number] medicines, vitamins, and supplements). Call your primary care provider before taking any new medicines (including over- the- counter medicines, vitamins, and supplements), because some of these may interact with your current medications, or may make your symptoms worse. Tell your primary care provider if you cannot afford your medications. CONTACT YOUR PRIMARY CARE PROVIDER if you experience any of the following: Worsening of symptoms Fever, chills, or fatigue Difficulty following your treatment plan, or difficulty taking medications CALL 911 OR GO TO THE EMERGENCY DEPARTMENT if you experience any of the following: Sudden, severe abdominal pain or nausea/vomiting Severe chest pain, or chest pain that radiates (moves) to your jaw or arm Sudden, severe shortness of breath or difficulty breathing Thank you for allowing us to participate in your care. Pending Studies at Discharge: No Stand-Alone Forms: My [facility], Smoking Cessation Medications and DC Order Prescriptions: New cefdinir 300 mg capsule 300 mg PO Q12H 11 Days Qty: 22 0RF oxycodone 5 mg capsule 5 mg PO Q6H PRN (Reason: pain) Qty: 20 0RF Continued cetirizine 10 mg tablet 10 mg PO HS ergocalciferol (vitamin D2) 1,250 mcg (50,000 unit) capsule 50,000 unit PO WK Rx Instructions: TAKES ON SATURDAYS folic acid 1 mg tablet 1 mg PO DAILY acetaminophen 325 mg tablet 650 mg PO DIRECTED PRN (Reason: Pain) oxycodone 10 mg tablet 10 mg PO BID PRN (Reason: pain) Qty: 31 0RF oxycodone 5 mg tablet 5 mg PO Q8H PRN (Reason: pain) Qty: 9 0RF oxycodone 5 mg tablet 5 - 10 mg PO Q6 PRN (Reason: pain) Qty: 12 0RF Adakveo 10 mg/mL Solution See Rx Instructions .ROUTE .COMPLEX Rx Instructions: infusion monthly per pt hydromorphone 2 mg tablet 2 mg PO Q6H PRN (Reason: Pain) ondansetron 4 mg tablet,disintegrating 4 mg PO Q8H PRN (Reason: nausea and vomiting) oxycodone 5 mg tablet 5 - 10 mg PO Q6H Qty: 12 0RF Rx Instructions: Initial Treatment Discontinued cefdinir 300 mg capsule 300 mg PO BID 14 Days Qty: 28 0RF Discharge Orders: Discharge Order (Routine); Ordered 11/28/22 Ordered By: Rachelle Sutton Admission Data Admit Date/Time: 11/25/22 05:34 Attending Provider: Patrick Robin Admit Provider: Azucena Rand Primary Care Provider: [facility] Other Providers: Steven Rodgers Other Interventions: Discharge Summary Assessment (RN) Last Done: 11/28/22 11:23 Supervising Physician Co-Signing Physician Notes I personally examined the patient and verified all knox points of history and exam, discussed case, and agree with decision making with Dr Sutton Feels up to going home. Had ceftriaxone today. Vitals noted, in general she is resting comfortably no distress. Breathing unlabored no accessory muscle use good effort. Skin shows no rashes no pallor or icterus. Pyelonephritis with sepsis (leukocytosis and tachycardia) present on admissionsuspect culture-negative because of partially treated, but unfortunately suspect refractory due to partially treated as well. Improved on Rocephin. Home on cefdinir. Outpatient follow-up Sickle cell acute pain crisisappears to be improving. Safe for home, p.o. oxycodone, p.o. hydration. Acute viral sinusitisappears to be improving as well. Nausealikely related to constipationMiraLAX. Otherwise as above. Resident Activity Tracking Resident Involvement: Resident Care Provided Care Provided: Adult Hospital Medicine
[2022-11-28] MEDS ORDERED: cefTRIAXone SODIUM 2,000 MG in DEXTROSE 5% 50 ML IV STA (08:47)
--- NOTE | 2022-11-28 18:55 | Billing Data ---
Date of Service November 28, 2022 Coding Level of Care Code 34794 IN/OBS DISCH 30 MIN/LESS
== END 2022-11-28 12:08 | disposition home or self-care (01) | DRG 871 ==
LOC: ED 03:37 → SUATTDRO 05:34 → 3W 05:34

== ENCOUNTER 2023-04-18 01:41 | Inpatient (IN) ==
[2023-04-18] MEDS ORDERED: HYDROmorphone INJ 1 MG/ML SYRINGE IV STA ×3 (01:58→05:22)
--- NOTE | 2023-04-18 02:05 | Emergency Department Note ---
ED Provider Note History of Present Illness Chief Complaint: Pain (Generalized) Stated Complaint: JOINT PAIN,SICKLE CELL Time Seen by Provider: 04/18/23 01:49 Source: patient Mode of arrival: ambulatory Limitations: no limitations This patient is a 23-year-old female who presents to the emergency department for evaluation of pain due to a sickle cell flareup. Patient reports pain in her back and legs. She states that she has a history of sickle cell disease and this pain is consistent with her flareups. She states that she was back at home earlier this week and had an infusion for her sickle cell. She normally does get pain after this. She thought that the pain was manageable so returned back to school, however upon arriving here her pain had worsened. She denies any chest pain, shortness of breath, cough or fevers. Home Medications Medication Instructions Recorded Confirmed Type cetirizine 10 mg tablet 10 mg PO HS PRN Congestion 04/18/20 04/18/23 History acetaminophen 325 mg tablet 650 mg PO DIRECTED PRN Pain 12/13/21 04/18/23 History crizanlizumab-tmca 10 mg/mL See Rx Instructions .Route .COMPLEX 06/30/22 04/18/23 History intravenous solution (Adakveo) budesonide-formoterol HFA 80 2 puff inhalation BID PRN 12/14/22 04/18/23 History mcg-4.5 mcg/actuation aerosol Shortness Of Breath Or Wheezing inhaler (Symbicort) oxycodone 5 mg tablet 10 mg PO Q8H PRN pain #20 tabs 04/19/23 Rx Allergies Allergy/AdvReac Type Severity Reaction Status Date / Time peanut Allergy Intermediate ITCHY HIVES Verified 12/14/22 01:27 Past Med/Surg History Medical History Abnormal LFTs Anxiety Asthma Back pain Constipation COVID-19 Influenza A Leukocytosis Parainfluenza Pneumonia Pyelonephritis Seasonal allergies Sepsis Sepsis Sickle cell anemia Sickle cell anemia with crisis Sickle cell crisis Sickle cell crisis Splenomegaly Transaminitis Vaginal ulceration Surgical History No pertinent past surgical history Family History Brother Sickle cell anemia Social History Smoking Status: Never smoker Second Hand Exposure: No; Do You Dip or Chew Tobacco: No; Hx Alcohol Use: No Hx Substance Use: No Preferred Language: Senegalese Communication Ability: Effective Windows 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 Required: No Beliefs That Will Affect Care: None marital status: Single Current Living Situation: Family Current Living Situation Comment: Lives with roomates Feels Safe at Home: Yes Assistive Devices: None Physical Exam Vital Signs Vital Signs - 24 hr 04/18/23 01:45 Temperature 36.6 C Temperature Source Temporal Artery Scan Pulse Rate 102 H Pulse Rhythm Regular Pulse Strength Normal Respiratory Rate 20 Respiratory Effort / Characteristics Non-Labored Spontaneous Respiratory Depth Normal Blood Pressure 123/58 L Blood Pressure Mean 79 Blood Pressure Position Sitting Pulse Oximetry 100 Oxygen Delivery Method Room Air Sepsis Recent Fever Within 48 Hours No Sepsis New/Unexplained Change in Mental Status N/A Sepsis Action Taken by Nursing No Action Required VITALS: Vitals are noted on the nurse's note and reviewed by myself. GENERAL: This is a 23-year-old female, in no acute distress, well-developed well-nourished. SKIN: The skin was without rashes. EARS: External auditory canals clear, tympanic membranes pearly petersen without erythema or effusion bilaterally. EYES: Pupils equal round and reactive to light and accommodation. MOUTH: Mucous membranes moist. Tonsils are not enlarged. Pharynx without erythema or exudate. NECK: Supple without nuchal rigidity. No lymphadenopathy. HEART: Regular rate and rhythm without murmurs gallops or rubs. LUNGS: Clear to auscultation bilaterally without wheezes, rales or rhonchi. ABDOMEN: Positive bowel sounds x 4. Soft, nontender to palpation. MUSCULOSKELETAL: Full range of motion throughout. NEURO: Patient was alert and oriented to person place and time. Course Administered Medications Discontinued Medications Acetaminophen (Acetaminophen 500 Mg Tab) 1,000 mg PO TID PRN PRN Reason: Pain or Fever Stop: 05/18/23 10:23 Last Admin: 04/18/23 13:46 Dose: 1,000 mg Documented By: ELENA Enoxaparin Sodium (Enoxaparin Inj 40 Mg/0.4 Ml Syr) 40 mg SQ QAM ROBYN Stop: 05/19/23 08:59 Last Admin: 04/19/23 09:41 Dose: Not Given Documented By: ELENA Hydromorphone HCl (Hydromorphone Inj 1 Mg/Ml Syringe) 1 mg IV NOW STA Stop: 04/18/23 01:59 Last Admin: 04/18/23 03:22 Dose: 1 mg Documented By: LOUISE Hydromorphone HCl (Hydromorphone Inj 1 Mg/Ml Syringe) 1 mg IV NOW STA Stop: 04/18/23 04:11 Last Admin: 04/18/23 04:30 Dose: 1 mg Documented By: LOUISE Hydromorphone HCl (Hydromorphone Inj 1 Mg/Ml Syringe) 1 mg IV NOW STA Stop: 04/18/23 05:23 Last Admin: 04/18/23 05:32 Dose: 1 mg Documented By: LOUISE Hydromorphone HCl (Hydromorphone Inj 1 Mg/Ml Syringe) Confirm Administered Dose 1 mg .ROUTE .STK-MED ONE Stop: 04/18/23 09:36 Last Admin: 04/18/23 09:37 Dose: 1 mg Documented By: DUY Hydromorphone HCl (Hydromorphone Inj 1 Mg/Ml Syringe) 1 mg IV Q4H PRN PRN Reason: Moderate Pain (Scale 4, 5, 6) Stop: 05/02/23 10:23 Last Admin: 04/18/23 23:29 Dose: 1 mg Documented By: Admin: 04/18/23 23:05 Dose: 1 mg Documented By: VIPUL Hydromorphone HCl (Hydromorphone Inj 2 Mg/Ml Syr/Vial) 2 mg IV Q4H PRN PRN Reason: Severe Pain (Scale 7, 8, 9,10) Stop: 05/02/23 10:23 Last Admin: 04/19/23 09:34 Dose: 2 mg Documented By: Admin: 04/18/23 15:40 Dose: 2 mg Documented By: Admin: 04/18/23 10:55 Dose: 2 mg Documented By: ELENA Lactated Ringer's (Lr) 1,000 mls @ 125 mls/hr IV .Q8H ROBYN Stop: 05/18/23 07:44 Last Admin: 04/18/23 11:42 Dose: Not Given Documented By: ELENA Lactated Ringer's (Lr) 1,000 mls @ 125 mls/hr IV .Q8H ROBYN Stop: 05/18/23 10:23 Last Admin: 04/19/23 11:37 Dose: Not Given Documented By: Infusion: 04/19/23 11:20 Dose: 0 mls/hr Documented By: Admin: 04/19/23 02:49 Dose: 125 mls/hr Documented By: Infusion: 04/19/23 02:41 Dose: 125 mls/hr Documented By: Admin: 04/18/23 18:41 Dose: 125 mls/hr Documented By: Infusion: 04/18/23 18:41 Dose: 125 mls/hr Documented By: Admin: 04/18/23 11:00 Dose: 125 mls/hr Documented By: ELENA Ketorolac Tromethamine (Ketorolac Tromethamine 15 Mg/Ml Vial) 15 mg IV NOW STA Stop: 04/18/23 05:23 Last Admin: 04/18/23 05:32 Dose: 15 mg Documented By: LOUISE Ondansetron HCl (Ondansetron Inj 2 Mg/Ml 2 Ml Vial) 4 mg IV Q6H PRN PRN Reason: Nausea Stop: 05/18/23 10:23 Last Admin: 04/18/23 11:33 Dose: 4 mg Documented By: ELENA Oxycodone HCl (Oxycodone Hcl Ir 5 Mg Tab (Immediate Release)) 10 mg PO NOW STA Stop: 04/19/23 12:06 Last Admin: 04/19/23 12:19 Dose: 10 mg Documented By: ELENA Medical Decision Making Differential Diagnosis Differential diagnosis includes sickle cell crisis, chest crisis, dehydration, infection, among others. Home Medications was personally reviewed by me Laboratory Data Attestation: I reviewed the patient's lab results. 04/19/23 07:43 04/19/23 07:43 Lab Results 04/18/23 04/18/23 Range/Units 03:20 03:20 WBC 9.63 (4.8-10.8) K/ul RBC 3.49 L (4.20-5.40) M/uL Hgb 10.7 L (12.0-16.0) g/dl Hct 29.3 L (37.0-47.0) % MCV 84.0 (80.0-100.0) fL MCH 30.7 (25.0-34.0) pg MCHC 36.5 H (32.0-36.0) g/dL RDW Std Deviation 43.8 (36.4-46.3) fL RDW Coeff of Kashif 14.6 H (11.5-14.5) % Plt Count 311 (130-400) K/uL MPV 9.8 (9.4-12.4) fL Immature Gran % (Auto) 0.4 % Neut % (Auto) 54.4 % Lymph % (Auto) 27.0 % Eaton % (Auto) 12.9 % Eos % (Auto) 4.2 % Baso % (Auto) 1.1 % Reticulocyte % (Auto) 5.2 H (0.5-2.0) % Neut # (Auto) 5.24 (1.40-6.50) K/uL Lymph # (Auto) 2.60 (1.20-3.40) K/uL Eaton # (Auto) 1.24 H (0.11-0.59) K/uL Eos # (Auto) 0.40 (0.00-0.50) K/uL Baso # (Auto) 0.11 (0.00-0.20) K/uL Reticulocyte # 0.18 H (0.02-0.10) 10^6/uL Immature Gran # (Auto) 0.04 (0.01-0.20) K/uL Absolute Nucleated RBC 0.05 (0.00-0.12) K/uL Nucleated RBC % (auto) 0.5 % Sodium 135 L (136-145) mmol/L Potassium 3.6 (3.5-5.1) mmol/L Chloride 106 (98-107) mmol/L Carbon Dioxide 21 (21-32) mmol/L Anion Gap 8 (3-11) BUN 9 (6-23) mg/dl Creatinine 0.61 (0.6-1.2) mg/dl Est Cr Clr Drug Dosing 140.7 ml/min Est GFR ( Amer) 149.1 ml/min Est GFR (Non-Af Amer) 128.7 ml/min BUN/Creatinine Ratio 14.8 (10-20) Glucose 95 (70-99(Fasting)) mg/dl Calcium 9.4 (8.6-10.3) mg/dl Total Bilirubin 1.5 H (0.2-1.0) mg/dl AST 24 (13-39) U/L ALT 20 (7-52) U/L Alkaline Phosphatase 49 (34-104) U/L Total Protein 7.3 (6.0-8.3) gm/dl Albumin 4.5 (3.4-5.0) gm/dl Globulin 2.8 (2.5-4.0) gm/dl Albumin/Globulin Ratio 1.6 (0.9-2) MDM Narrative Continuous teletypesetter monitor: Order was placed for continuous teletypesetter monitor. Patient was placed on the teletypesetter monitor. Patient was noted to be in normal sinus rhythm at an initial rate of 90 bpm. The patient is a 23-year-old female who presents today complaining of pain due to a sickle cell crisis. Labs revealed anemia which is chronic for the patient. Bilirubin is 1.5, chronically elevated. Reticulocyte count elevated at 0.18. Patient treated with IV fluids, multiple doses of narcotics. She received a total of 3 mg of Dilaudid IV. On reassessment patient was still having a lot of pain. At this point, I think that admission would be beneficial. [facility] the patient for further care. Impression Sickle cell disease with crisis Discharge Plan Visit Data Chief Complaint: Pain (Generalized) Stated Complaint: JOINT PAIN,SICKLE CELL ED Provider: Cuba Nunez ED Midlevel Provider: Laly Carvajal Discharge Problem: Sickle cell disease with crisis Patient Disposition: Admitted As Inpatient Discharge Instructions Interventions: ED Discharge Assessment Last Done: 04/18/23 10:16
[2023-04-18 03:54] LABS: Basophils # (auto) 0.11 K/uL (0.00-0.20); Basophils % (auto) 1.1 %; Eosinophils % (auto) 4.2 %; Hematocrit (blood only) 29.3 % (37.0-47.0); Hemoglobin 10.7 g/dl (12.0-16.0); Immature Granulocytes # (auto) 0.04 K/uL (0.01-0.20); Immature Granulocytes % (auto) 0.4 %; Mean Corpuscular Hemoglobin 30.7 pg (25.0-34.0); Mean Corpuscular Hgb Conc 36.5 g/dL (32.0-36.0); Mean Platelet Volume 9.8 fL (9.4-12.4); Monocytes # (auto) 1.24 K/uL (0.11-0.59); Monocytes % (auto) 12.9 %; Neutrophils # (auto) 5.24 K/uL (1.40-6.50); Neutrophils % (auto) 54.4 %; Nucleated RBC # (auto) 0.05 K/uL (0.00-0.12); Nucleated RBC % (auto) 0.5 %; Platelet Count 311 K/uL (130-400); RDW Coefficient of Variation 14.6 % (11.5-14.5); RDW Standard Deviation 43.8 fL (36.4-46.3); Red Blood Count 3.49 M/uL (4.20-5.40); Reticulocyte % 5.2 % (0.5-2.0); Reticulocytes # 0.18 10^6/uL (0.02-0.10); White Blood Count 9.63 K/ul (4.8-10.8)
[2023-04-18 05:03] LABS: Albumin Globulin Ratio 1.6 (0.9-2); Albumin Level 4.5 gm/dl (3.4-5.0); BUN Creatinine Ratio 14.8 (10-20); Bilirubin,Total 1.5 mg/dl (0.2-1.0); Calcium 9.4 mg/dl (8.6-10.3); Creatinine Clr Calc Pharmacy 140.7 ml/min; Est GFR (African American) 149.1 ml/min; Est GFR (Non-African American) 128.7 ml/min; Globulin 2.8 gm/dl (2.5-4.0); Potassium 3.6 mmol/L (3.5-5.1); Total Protein 7.3 gm/dl (6.0-8.3)
[2023-04-18] MEDS ORDERED: KETOROLAC TROMETHAMINE 15 MG/ML VIAL IV STA (05:22)
--- NOTE | 2023-04-18 07:38 | History & Physical Report ---
Date of Service April 18, 2023 Assessment & Plan (1) Sickle cell crisis: Plan: Patient with history of the same, initial laboratories unremarkable however will send urine analysis. 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 Last admitted to our hospital in November 2022. Patient went home for the summer. During her many previous admissions she has had various medical issues precipitating her crisis including influenza and urinary tract infections. Reportedly at her home the patient received Adakveo as an infusion to reduce episodes of sickle crisis reportedly on Thursday the week prior to admission she then traveled back to [employer] [facility] to begin classes and has had progressive ongoing pain typical for her sickle cell crisis. Adakveo does have side effects that can include pain including joint pain nausea and back pain. Also can cause mild fever and abdominal discomfort her initial evaluation emergency department did not reveal any concerns for precipitating events Allergies Allergy/AdvReac Type Severity Reaction Status Date / Time peanut Allergy Intermediate ITCHY HIVES Verified 12/14/22 01:27 Home Medications Medication Instructions Recorded Confirmed Type cetirizine 10 mg tablet 10 mg PO HS PRN Congestion 04/18/20 04/18/23 History acetaminophen 325 mg tablet 650 mg PO DIRECTED PRN Pain 12/13/21 04/18/23 History crizanlizumab-tmca 10 mg/mL See Rx Instructions .Route .COMPLEX 06/30/22 04/18/23 History intravenous solution (Adakveo) budesonide-formoterol HFA 80 2 puff inhalation BID PRN 12/14/22 04/18/23 History mcg-4.5 mcg/actuation aerosol Shortness Of Breath Or Wheezing inhaler (Symbicort) Past Med/Surg History Medical History Abnormal LFTs Anxiety Asthma Back pain Constipation COVID-19 Influenza A Leukocytosis Parainfluenza Pneumonia Pyelonephritis Seasonal allergies Sepsis Sepsis Sickle cell anemia Sickle cell anemia with crisis Sickle cell crisis Sickle cell crisis Splenomegaly Transaminitis Vaginal ulceration Surgical History No pertinent past surgical history Family History Brother Sickle cell anemia Social History Smoking Status: Never smoker Second Hand Exposure: No; Do You Dip or Chew Tobacco: No; Tobacco Cessation Education Requested by Patient: No Hx Alcohol Use: No Hx Substance Use: No Preferred Language: Romansh Communication Ability: Effective Classified Advertising Manager Required: No Beliefs That Will Affect Care: None marital status: Single Current Living Situation: Family Current Living Situation Comment: Lives with roomates Other Information That Helps Us Care for You: No Feels Safe at Home: Yes Assistive Devices: None Review of Systems Review of Systems: Moderate distress and complaints of pain no headache, no visual changes no speech or swallowing issues no chest pain, pressure or palpitations no shortness of breath, cough or wheezes Generalized abdominal pain and back pain without nausea or vomiting, diarrhea or constipation no dysuria, hematuria or frequency no focal joint pain or swelling Paraspinous bilateral muscular back pain without radiation or CVA tenderness no bruising, bleeding or rashes no focal signs of weakness or numbness or altered sensation no complaints of anxiety or depression.. Physical Exam Physical Exam: The patient appeared well nourished and normally developed. She is in moderate pain Vital signs as documented. Head exam is normocephalic atraumatic Neck is without JVD, thyromegaly, or carotid bruits. Lungs are clear to auscultation, no focal loss of breath sounds Cardiac exam, Rhythm is regular.. No murmurs, rubs or gallops. Abdominal exam reveals normal bowel sounds, soft non tender, no masses Extremities are nonedematous and both pedal pulses are present Neurologic exam is alert and oriented, no focal loss of strength or sensation Skin is without bruises or rashes Psychologically is without concerns for anxiety or depression.. Results & Data Results & Data Vital Signs (Past 12 Hours) Vital Signs Temp Pulse Pulse Resp BP BP Pulse Ox 04/18/23 06:00 96 H 13 123/83 98 04/18/23 05:00 83 13 120/82 97 04/18/23 04:00 88 15 132/85 98 04/18/23 03:00 86 18 117/86 98 04/18/23 03:42 91 H 04/18/23 01:45 97.9 F 102 H 20 123/58 L 100 O2 Del Method 04/18/23 06:00 Room Air 04/18/23 05:00 Room Air 04/18/23 04:00 Room Air 04/18/23 03:00 Room Air 04/18/23 03:42 04/18/23 01:45 Room Air Code Status & VTE Plan VTE Prophylaxis Plan VTE Prophylaxis will be ordered: Yes PG Care Time/CCT Total # of Minutes Spent Total Time Spent with Patient: Total time spent is greater than 50% in coordination of care (as documented) at patient's floor/unit and/or counseling patient: Coding Level of Care Code 26232 INT INP/OBS CARE 2/55MIN Diagnoses Sickle cell crisis D57.00
[2023-04-18] MEDS ORDERED: LACTATED RINGER'S 1,000 ML IV SCH (07:45)
[2023-04-18] MEDS ORDERED: HYDROmorphone INJ 1 MG/ML SYRINGE ONE (09:35)
[2023-04-18] MEDS ORDERED: CETIRIZINE HCL 10 MG TABLET PO PRN (10:24)
[2023-04-18] MEDS ORDERED: ACETAMINOPHEN 500 MG TAB PO PRN (10:24)
[2023-04-18] MEDS ORDERED: KETOROLAC 30 MG/ML VIAL IV PRN (10:24)
[2023-04-18] MEDS ORDERED: ALUMINUM/MAGNESIUM SUSP 30 ML UDC PO PRN (10:24)
[2023-04-18] MEDS ORDERED: ONDANSETRON INJ 2 MG/ML 2 ML VIAL IV PRN (10:24)
[2023-04-18] MEDS ORDERED: FLUTICASONE/VILANTEROL 100/25MCG 14 PUFFS/INHALER INH PRN (10:43)
[2023-04-18] MEDS: HYDROmorphone INJ 2 MG/ML SYR/VIAL IV PRN ×2 (10:55→15:40)
[2023-04-18] MEDS: LACTATED RINGER'S 1,000 ML IV SCH ×2 (11:00→18:41)
[2023-04-18] MEDS ORDERED: PROMETHAZINE HCL 12.5 MG in SODIUM CHLORIDE 0.9% 50 ML IV PRN (11:30)
[2023-04-18 14:02] LABS: Pregnancy Test, Urine Negative (Negative)
[2023-04-18 15:00] LABS: Appearance Urine Clear (Clear); Bilirubin Urine Negative (Negative); Blood Urine Negative (Negative); Color Urine Yellow; Glucose Urine UA Negative (Negative); Ketones Urine Negative (Negative); Leukocyte Esterase Urine Negative (Negative); Nitrite Urine Negative (Negative); Protein Urine Negative (Negative); Specific Gravity Urine 1.014 (1.000-1.030); Urobilinogen Urine Negative (Negative); pH Urine 5.5 (4.5-7.5)
[2023-04-18] MEDS: HYDROmorphone INJ 1 MG/ML SYRINGE IV PRN ×2 (23:05→23:29)
[2023-04-19] MEDS: LACTATED RINGER'S 1,000 ML IV SCH ×2 (02:49→11:37)
--- NOTE | 2023-04-19 07:18 | Hospitalist Progress Note ---
Date of Service April 19, 2023 Assessment & Plan (1) Sickle cell crisis: Plan: Patient with history of the same, initial laboratories unremarkable however will send urine analysis. Robust hydration with lactated Ringer's opiate therapy for pain control adjunctive Tylenol and Toradol also for pain control survey serology to evaluate for any renal distress Previous history of reactive airway disease we will continue Symbicort therapy twice daily and surgery zine as needed DVT prevention is enoxaparin Admission and Anticipated Discharge Date Admission Date: April 18, 2023 Results & Data Results & Data Vital Signs (Past 12 Hours) Vital Signs Temp Pulse Resp BP Pulse Ox O2 Del Method 04/18/23 23:08 89 20 117/62 99 Room Air 04/18/23 21:15 98.4 F 88 20 113/64 99 Room Air PG Care Time/CCT Total # of Minutes Spent Total Time Spent with Patient: Total time spent is greater than 50% in coordination of care (as documented) at patient's floor/unit and/or counseling patient: Coding Diagnoses Sickle cell crisis D57.00
[2023-04-19 08:37] LABS: Hematocrit (blood only) 26.5 % (37.0-47.0); Hemoglobin 9.7 g/dl (12.0-16.0); Mean Corpuscular Hemoglobin 30.8 pg (25.0-34.0); Mean Corpuscular Hgb Conc 36.6 g/dL (32.0-36.0); Mean Corpuscular Volume 84.1 fL (80.0-100.0); Mean Platelet Volume 10.2 fL (9.4-12.4); Nucleated RBC # (auto) 0.07 K/uL (0.00-0.12); Nucleated RBC % (auto) 0.9 %; Platelet Count 288 K/uL (130-400); RDW Coefficient of Variation 14.4 % (11.5-14.5); RDW Standard Deviation 43.2 fL (36.4-46.3); Red Blood Count 3.15 M/uL (4.20-5.40); White Blood Count 7.84 K/ul (4.8-10.8)
[2023-04-19] MEDS ORDERED: ENOXAPARIN INJ 40 MG/0.4 ML SYR SQ SCH (09:00)
[2023-04-19] MEDS: HYDROmorphone INJ 2 MG/ML SYR/VIAL IV PRN (09:34)
[2023-04-19 09:45] LABS: Anion Gap 5 (3-11); BUN Creatinine Ratio 12.5 (10-20); Blood Urea Nitrogen 7 mg/dl (6-23); Calcium 8.9 mg/dl (8.6-10.3); Carbon Dioxide 24 mmol/L (21-32); Chloride 107 mmol/L (98-107); Creatinine Clr Calc Pharmacy 153.2 ml/min; Est GFR (African American) > 150.0 ml/min; Est GFR (Non-African American) 132.4 ml/min; Glucose 81 mg/dl (70-99(Fasting)); Potassium 3.9 mmol/L (3.5-5.1); Sodium 136 mmol/L (136-145)
[2023-04-19] MEDS ORDERED: oxyCODONE HCL IR 5 MG TAB (IMMEDIATE RELEASE) PO STA (12:05)
--- NOTE | 2023-04-19 17:48 | Discharge Summary ---
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 Last admitted to our hospital in November 2022. Patient went home for the summer. During her many previous admissions she has had various medical issues precipitating her crisis including influenza and urinary tract infections. Reportedly at her home the patient received Adakveo as an infusion to reduce episodes of sickle crisis reportedly on Thursday the week prior to admission she then traveled back to [facility] to begin classes and has had progressive ongoing pain typical for her sickle cell crisis. Adakveo does have side effects that can include pain including joint pain nausea and back pain. Also can cause mild fever and abdominal discomfort her initial evaluation emergency department did not reveal any concerns for precipitating events Principal Diagnosis sickle cell crisis Discharge Exam awake alert appropriate patient is currently out of pain. Cardiac exam is regular lungs are clear Discharge Data Allergies Allergy/AdvReac Type Severity Reaction Status Date / Time peanut Allergy Intermediate ITCHY HIVES Verified 12/14/22 01:27 Hospital Course (1) Sickle cell crisis: Patient with history of the same, initial laboratories unremarkable urine negative for signs of infection. Improved after Robust hydration continue to follow-up with her outpatient integration aide for monthly infusions of Adakveo adjunctive Tylenol and Toradol also for pain control slight drop in hemoglobin likely from dilution. Hemoglobin remains in the 9.7 10.7 range Previous history of reactive airway disease we will continue Symbicort therapy twice daily and Plan difficult case. Patient was tearful feeling that we did not take her seriously when she presents with a sickle cell crisis. This is typical for many patients with sickle cell disease. It should be noted that although she does not have a significant objective changes her sickle cell crisis is likely severe she typically needs higher doses of opiates to control her pain Total Time Total Time Spent Total Time Spent (In Minutes): it required greater than 30 minutes to prepare this patient for discharge Discharge Plan Discharge Items Patient Disposition: Home - Self-Care Reason For Visit: SICKLE CELL CRISIS Discharge Diagnosis: Sicle Cell Crisis Activity: Resume your previous activity Non-emergency contact: Primary Care Provider and Specialist Call non-emergency contact if: your symptoms worsen Follow-up/Referrals: [place] [Primary Care Provider] - Diet: Regular Addtl Attending Provider Instructions: Please rest and recover keep hydrated especially as the next few days it is supposed to warm up use over the counter medications to try to help your pain first if using oxycodone, use carefully being aware if its additive potential. While taking pain medicines be mindful of your bowel habits as they tend to be constipating Pending Studies at Discharge: No Stand-Alone Forms: My [facility], Pain - Opioid Pain Management, Smoking Cessation Medications and DC Order Prescriptions: New oxycodone 5 mg tablet 10 mg PO Q8H PRN (Reason: pain) Qty: 20 0RF Continued cetirizine 10 mg tablet 10 mg PO HS PRN (Reason: Congestion) acetaminophen 325 mg tablet 650 mg PO DIRECTED PRN (Reason: Pain) budesonide-formoterol [Symbicort] 80-4.5 mcg/actuation Hfa Aerosol Inhaler 2 puff INHALATION BID PRN (Reason: Shortness Of Breath Or Wheezing) Adakveo 10 mg/mL Solution See Rx Instructions .ROUTE .COMPLEX Rx Instructions: infusion monthly per pt Discharge Orders: Discharge Order (Routine); Ordered 04/19/23 Ordered By: Kentrell Huber/Other Patient Handouts: Sickle Cell Anemia Admission Data Admit Date/Time: 04/18/23 07:32 Attending Provider: Kentrell Negron Admit Provider: Kentrell Negron Primary Care Provider: [facility] Other Interventions: Discharge Summary Assessment (RN) Last Done: 04/19/23 15:17 Coding Level of Care Code 62340 INP/OBS DISCH >30 MIN Diagnoses Sickle cell crisis D57.00
== END 2023-04-19 16:34 | disposition home or self-care (01) | DRG 812 ==
LOC: ED 01:41 → 3W 07:32

== ENCOUNTER 2023-04-22 02:27 | Observation (INO) ==
[2023-04-22 03:19] LABS: Albumin Level 4.4 gm/dl (3.4-5.0); Anion Gap 5 (3-11); Bilirubin,Total 1.5 mg/dl (0.2-1.0); Calcium 9.2 mg/dl (8.6-10.3); Carbon Dioxide 21 mmol/L (21-32); Chloride 108 mmol/L (98-107); Sodium 134 mmol/L (136-145)
[2023-04-22 03:25] LABS: Alanine Aminotransferase 20 U/L (7-52); Albumin Globulin Ratio 1.5 (0.9-2); Alkaline Phosphatase 48 U/L (34-104); Aspartate Aminotransferase 26 U/L (13-39); BUN Creatinine Ratio 16.9 (10-20); Blood Urea Nitrogen 10 mg/dl (6-23); Creatinine Clr Calc Pharmacy 145.4 ml/min; Est GFR (African American) > 150.0 ml/min; Est GFR (Non-African American) 130.1 ml/min; Glucose 100 mg/dl (70-99(Fasting)); Total Protein 7.4 gm/dl (6.0-8.3)
[2023-04-22 03:26] LABS: Basophils # (auto) 0.14 K/uL (0.00-0.20); Basophils % (auto) 1.6 %; Eosinophils # (auto) 0.62 K/uL (0.00-0.50); Eosinophils % (auto) 7.3 %; Hematocrit (blood only) 30.7 % (37.0-47.0); Hemoglobin 11.2 g/dl (12.0-16.0); Immature Granulocytes # (auto) 0.01 K/uL (0.01-0.20); Immature Granulocytes % (auto) 0.1 %; Lymphocytes # (auto) 2.69 K/uL (1.20-3.40); Lymphocytes % (auto) 31.7 %; Mean Corpuscular Hemoglobin 30.9 pg (25.0-34.0); Mean Corpuscular Hgb Conc 36.5 g/dL (32.0-36.0); Mean Corpuscular Volume 84.8 fL (80.0-100.0); Mean Platelet Volume 9.8 fL (9.4-12.4); Monocytes % (auto) 15.3 %; Neutrophils # (auto) 3.73 K/uL (1.40-6.50); Nucleated RBC # (auto) 0.11 K/uL (0.00-0.12); Nucleated RBC % (auto) 1.3 %; Platelet Count 335 K/uL (130-400); RDW Coefficient of Variation 14.2 % (11.5-14.5); RDW Standard Deviation 43.5 fL (36.4-46.3); Red Blood Count 3.62 M/uL (4.20-5.40); Reticulocyte % 5.8 % (0.5-2.0); Reticulocytes # 0.21 10^6/uL (0.02-0.10); White Blood Count 8.49 K/ul (4.8-10.8)
[2023-04-22] MEDS ORDERED: ONDANSETRON INJ 2 MG/ML 2 ML VIAL IV STA (05:35)
[2023-04-22] MEDS ORDERED: SODIUM CHLORIDE 0.9% 1,000 ML IV ONE (05:35)
[2023-04-22] MEDS ORDERED: SODIUM CHLORIDE 0.9% 1,000 ML IV SCH (05:45)
[2023-04-22] MEDS: HYDROmorphone INJ 0.5 MG/0.5 ML SYR IV PRN ×5 (05:45→21:52)
[2023-04-22] MEDS ORDERED: HYDROmorphone INJ 1 MG/ML SYRINGE IV STA ×2 (05:51→09:47)
--- NOTE | 2023-04-22 06:50 | Emergency Department Note ---
Impression & Plan Sickle cell disease with crisis ED Provider Note CHIEF COMPLAINT: Sickle cell crisis HISTORY OF PRESENT ILLNESS: This 23-year-old female patient with past medical history of sickle cell disease, seasonal allergies, COVID-19, and asthma presents to the emergency department with complaints of. If the above bilateral knees and low back. The patient denies any chest discomfort or shortness of breath. She was recently evaluated and admitted to our facility, discharged 4 days ago. Patient states overnight her pain came back "with severity." She denied any fever, vomiting and shortness of breath. She denies any dysuria. REVIEW OF SYSTEMS: A review of systems was performed with positives and pertinent negatives listed in the history of present illness. 10 systems were reviewed and are otherwise negative. ALLERGIES: see below MEDICATIONS: see below PMH: see below SOCIAL HISTORY: see below DDx: Sickle cell crisis, dehydration, infectious etiology, metabolic abnormality , among others. PHYSICAL EXAM: Vital signs reviewed. General: Well-appearing 23-year-old female, in no significant distress. HEENT: No scleral icterus, PERRLA, neck supple. Dry mucous membranes. Cardiovascular: Regular rate and rhythm, no extra sounds. Pulmonary: Slightly tachycardic, normal work of breathing. Abdomen: Soft, nontender, nondistended, positive bowel sounds. Musculoskeletal: Atraumatic, no peripheral edema. Neurologic: Patient awake alert and oriented x 3, speech is clear Skin: Warm, dry, no rash EMERGENCY DEPARTMENT COURSE/MDM: This patient was evaluated and appeared to be in no significant distress. IV access was obtained and laboratory work was drawn. The patient was placed on the court recording monitor noted to be in a normal sinus rhythm. patient was hydrated with normal saline solution, given Dilaudid 0.5 mg IV with Zofran 4 mg IV. She did approach nursing staff, stating that there should be a pain management protocol for her noting high-dose narcotics are necessary. Patient was given a second dose of Dilaudid 1.5 mg. Laboratory work seems fairly consistent with her baseline including a reticulocyte count of 0.21. Patient stated she preferred discharge as she has "missed a lot of school." I did offer to write a short prescription for Oxy, however the patient stated she did not need this as she has it at home. Patient was feeling much improved on my reevaluation and stated that she thought that current dose worked. She will be discharged to continue pain management, drink plenty of fluids, to follow-up with her chocolatier and to return to the ER for worsening of symptoms or any medical concerns. MONITORING: An order for cardiac monitoring was placed and the patient is noted to be in a normal sinus rhythm 89 beats per minute. DISPOSITION: Home Past Med/Surg History Medical History Abnormal LFTs Anxiety Asthma Back pain Constipation COVID-19 Influenza A Leukocytosis Parainfluenza Pneumonia Pyelonephritis Seasonal allergies Sepsis Sepsis Sickle cell anemia Sickle cell anemia with crisis Sickle cell crisis Sickle cell crisis Splenomegaly Transaminitis Vaginal ulceration Surgical History No pertinent past surgical history Family History Brother Sickle cell anemia Social History Smoking Status: Never smoker Second Hand Exposure: No; Do You Dip or Chew Tobacco: No; Hx Alcohol Use: No Hx Substance Use: No Preferred Language: Nepalese Communication Ability: Effective Personal Computer Specialist Required: No Beliefs That Will Affect Care: None marital status: Single Current Living Situation: Family Current Living Situation Comment: Lives with roomates Feels Safe at Home: Yes Assistive Devices: None Allergies Allergies Allergy/AdvReac Type Severity Reaction Status Date / Time peanut Allergy Intermediate ITCHY HIVES Verified 12/14/22 01:27 Home Meds Home Medications Medication Instructions Recorded Confirmed cetirizine 10 mg tablet 10 mg PO HS PRN Congestion 04/18/20 04/22/23 acetaminophen 325 mg tablet 650 mg PO DIRECTED PRN Pain 12/13/21 04/22/23 crizanlizumab-tmca 10 mg/mL See Rx Instructions .Route .COMPLEX 06/30/22 04/22/23 intravenous solution (Adakveo) budesonide-formoterol HFA 80 2 puff inhalation BID PRN 12/14/22 04/22/23 mcg-4.5 mcg/actuation aerosol Shortness Of Breath Or Wheezing inhaler (Symbicort) Previous Rx's Medication Instructions Recorded oxycodone 5 mg tablet 10 mg PO Q8H PRN pain #20 tabs 04/19/23 Results & Data (ED) Vital Signs Vital Signs - 24 hr 04/22/23 02:29 04/22/23 05:01 04/22/23 06:20 Temperature 36.2 C L Temperature Source Temporal Artery Scan Pulse Rate 100 H Pulse Rate [Right] 89 85 Pulse Rhythm [Right] Regular Regular Respiratory Rate 18 16 16 Respiratory Effort / Characteristics Non-Labored Spontaneous Non-Labored Spontaneous Non-Labored Spontaneous Respiratory Depth Normal Normal Normal Blood Pressure 112/80 Blood Pressure [Right Arm] 116/90 122/90 Blood Pressure Mean 90 Blood Pressure Mean [Right Arm] 98 100 Blood Pressure Position Sitting Blood Pressure Position [Right Arm] Sitting Pulse Oximetry 95 100 98 Oxygen Delivery Method Room Air Room Air Room Air Sepsis Recent Fever Within 48 Hours No Sepsis New/Unexplained Change in Mental Status N/A Sepsis Action Taken by Nursing No Action Required Home Medications Current Medication List: was personally reviewed by me Laboratory Data Attestation: I reviewed the patient's lab results. 04/22/23 02:37 04/22/23 02:37 Lab Results 04/22/23 04/22/23 Range/Units 02:37 02:37 WBC 8.49 (4.8-10.8) K/ul RBC 3.62 L (4.20-5.40) M/uL Hgb 11.2 L (12.0-16.0) g/dl Hct 30.7 L (37.0-47.0) % MCV 84.8 (80.0-100.0) fL MCH 30.9 (25.0-34.0) pg MCHC 36.5 H (32.0-36.0) g/dL RDW Std Deviation 43.5 (36.4-46.3) fL RDW Coeff of Kashif 14.2 (11.5-14.5) % Plt Count 335 (130-400) K/uL MPV 9.8 (9.4-12.4) fL Immature Gran % (Auto) 0.1 % Neut % (Auto) 44.0 % Lymph % (Auto) 31.7 % Victoria % (Auto) 15.3 % Eos % (Auto) 7.3 % Baso % (Auto) 1.6 % Reticulocyte % (Auto) 5.8 H (0.5-2.0) % Neut # (Auto) 3.73 (1.40-6.50) K/uL Lymph # (Auto) 2.69 (1.20-3.40) K/uL Victoria # (Auto) 1.30 H (0.11-0.59) K/uL Eos # (Auto) 0.62 H (0.00-0.50) K/uL Baso # (Auto) 0.14 (0.00-0.20) K/uL Reticulocyte # 0.21 H (0.02-0.10) 10^6/uL Immature Gran # (Auto) 0.01 (0.01-0.20) K/uL Absolute Nucleated RBC 0.11 (0.00-0.12) K/uL Nucleated RBC % (auto) 1.3 % Sodium 134 L (136-145) mmol/L Potassium 4.0 (3.5-5.1) mmol/L Chloride 108 H (98-107) mmol/L Carbon Dioxide 21 (21-32) mmol/L Anion Gap 5 (3-11) BUN 10 (6-23) mg/dl Creatinine 0.59 L (0.6-1.2) mg/dl Est Cr Clr Drug Dosing 145.4 ml/min Est GFR ( Amer) > 150.0 ml/min Est GFR (Non-Af Amer) 130.1 ml/min BUN/Creatinine Ratio 16.9 (10-20) Glucose 100 H (70-99(Fasting)) mg/dl Calcium 9.2 (8.6-10.3) mg/dl Total Bilirubin 1.5 H (0.2-1.0) mg/dl AST 26 (13-39) U/L ALT 20 (7-52) U/L Alkaline Phosphatase 48 (34-104) U/L Total Protein 7.4 (6.0-8.3) gm/dl Albumin 4.4 (3.4-5.0) gm/dl Globulin 3.0 (2.5-4.0) gm/dl Albumin/Globulin Ratio 1.5 (0.9-2) Administered Medications Discontinued Medications Acetaminophen (Acetaminophen 500 Mg Tab) 1,000 mg PO Q8H PRN PRN Reason: pain/fever Stop: 05/22/23 10:20 Last Admin: 04/23/23 07:11 Dose: 1,000 mg Documented By: JKM Enoxaparin Sodium (Enoxaparin Inj 40 Mg/0.4 Ml Syr) 40 mg SQ DAILY ROBYN Stop: 05/22/23 10:29 Last Admin: 04/23/23 09:45 Dose: 40 mg Documented By: Admin: 04/22/23 11:55 Dose: 40 mg Documented By: LEIDY Hydromorphone HCl (Hydromorphone Inj 0.5 Mg/0.5 Ml Syr) 0.5 mg IV Q1H PRN PRN Reason: Pain Stop: 05/06/23 05:44 Last Admin: 04/22/23 09:27 Dose: 0.5 mg Documented By: Admin: 04/22/23 08:24 Dose: 0.5 mg Documented By: Admin: 04/22/23 05:45 Dose: 0.5 mg Documented By: DENISE Hydromorphone HCl (Hydromorphone Inj 1 Mg/Ml Syringe) 1.5 mg IV NOW STA Stop: 04/22/23 05:52 Last Admin: 04/22/23 06:18 Dose: 1.5 mg Documented By: DENISE Hydromorphone HCl (Hydromorphone Inj 1 Mg/Ml Syringe) 1 mg IV NOW STA Stop: 04/22/23 09:48 Last Admin: 04/22/23 09:58 Dose: 1 mg Documented By: LEIDY Hydromorphone HCl (Hydromorphone Inj 2 Mg/Ml Syr/Vial) 2 mg IV NOW STA Stop: 04/22/23 10:21 Last Admin: 04/22/23 11:55 Dose: 2 mg Documented By: LEIDY Hydromorphone HCl (Hydromorphone Inj 0.5 Mg/0.5 Ml Syr) 2 mg IV Q4H PRN PRN Reason: Severe Pain (Scale 7, 8, 9,10) Stop: 05/06/23 10:20 Last Admin: 04/23/23 01:54 Dose: 2 mg Documented By: Admin: 04/22/23 21:52 Dose: 2 mg Documented By: Admin: 04/22/23 15:35 Dose: 2 mg Documented By: ELENA Sodium Chloride (Nss 1000ml) 1,000 mls @ 999 mls/hr IV .Q1H1M ONE Stop: 04/22/23 06:35 Last Infusion: 04/22/23 06:38 Dose: 0 mls/hr Documented By: Admin: 04/22/23 05:45 Dose: 999 mls/hr Documented By: DENISE Sodium Chloride (Nss 1000ml) 1,000 mls @ 150 mls/hr IV .Q6H40M ROBYN Stop: 05/22/23 05:44 Last Infusion: 04/22/23 13:31 Dose: 0 mls/hr Documented By: Admin: 04/22/23 05:46 Dose: 150 mls/hr Documented By: DENISE Lactated Ringer's (Lr) 1,000 mls @ 80 mls/hr IV .[id number] ROBYN Stop: 04/22/23 22:50 Last Infusion: 04/23/23 02:52 Dose: 0 mls/hr Documented By: Admin: 04/22/23 11:55 Dose: 80 mls/hr Documented By: LEIDY Ondansetron HCl (Ondansetron Inj 2 Mg/Ml 2 Ml Vial) 4 mg IV NOW STA Stop: 04/22/23 05:36 Last Admin: 04/22/23 05:45 Dose: 4 mg Documented By: DENISE Ondansetron HCl (Ondansetron Inj 2 Mg/Ml 2 Ml Vial) 4 mg IV Q6H PRN PRN Reason: Nausea Stop: 05/22/23 10:20 Last Admin: 04/23/23 07:16 Dose: 4 mg Documented By: ELENA Discharge Plan Visit Data Chief Complaint: Back Injury/Pain Stated Complaint: SICKLE CELL CRISIS ED Provider: Nicolasa Arrington Discharge Problem: Sickle cell disease with crisis Patient Disposition: Admitted As Inpatient Condition: Good Discharge Instructions Interventions: ED Discharge Assessment Last Done: 04/22/23 10:22
--- NOTE | 2023-04-22 08:11 | Emergency Department Note ---
ED Visit Note Patient signed out to me this morning by Dr. Aviles. Patient was just recently admitted to the hospital for a sickle cell crisis. She was discharged on 04/19/2023. She reportedly has been having continued pain in her back and knees since discharge. She has oral oxycodone at home but that has not been helping her symptoms. She reports she normally gets 3 mg of IV Dilaudid at a time for her symptoms and that normally helps. Plan was to assess after her second dosing of Dilaudid. However, on reassessment, the patient is complaining of continued pain and she does not feel comfortable going home. She denies any recent fevers. - Work-up in the emergency department grossly unremarkable. - Discussion was had with social media editor about patient's need for admission. - Hospitalist consulted for admission - Patient to be admitted to [facility] hospitalist service for further evaluation and management Diagnosis: sickle cell disease with crisis Plan: admit
[2023-04-22] MEDS ORDERED: HYDROmorphone INJ 2 MG/ML SYR/VIAL IV STA ×3 (10:20→10:21)
[2023-04-22] MEDS ORDERED: ACETAMINOPHEN 500 MG TAB PO PRN (10:21)
[2023-04-22] MEDS ORDERED: LACTATED RINGER'S 1,000 ML IV SCH (10:21)
[2023-04-22] MEDS ORDERED: oxyCODONE HCL IR 5 MG TAB (IMMEDIATE RELEASE) PO PRN (10:21)
[2023-04-22] MEDS ORDERED: HYDROmorphone INJ 1 MG/ML SYRINGE IV PRN (10:21)
[2023-04-22] MEDS ORDERED: ONDANSETRON INJ 2 MG/ML 2 ML VIAL IV PRN (10:21)
[2023-04-22] MEDS ORDERED: CETIRIZINE HCL 10 MG TABLET PO PRN (10:21)
[2023-04-22] MEDS ORDERED: FLUTICASONE/VILANTEROL 100/25MCG 14 PUFFS/INHALER INH PRN (10:31)
[2023-04-22] MEDS: ENOXAPARIN INJ 40 MG/0.4 ML SYR SQ SCH (11:55)
[2023-04-22] MEDS ORDERED: KETOROLAC 30 MG/ML VIAL IV PRN (15:29)
--- NOTE | 2023-04-22 15:29 | History & Physical Report ---
Date of Service April 22, 2023 Assessment & Plan (1) Sickle cell crisis: Plan: Patient with history of the same, initial laboratories unremarkable however will send urine analysis. hydration with crystalloid solution opiate therapy for pain control adjunctive Tylenol and Toradol also for pain control survey serology to evaluate for any renal distress Previous history of reactive airway disease we will continue Symbicort therapy twice daily and surgery zine as needed DVT prevention is enoxaparin Admission and Anticipated Discharge Date Admission Date: April 22, 2023 History of Present Illness Primary Care Provider: [facility] 23-year-old female readmission physical cell crisis. Patient admits to drinking 2 pitchers of [employer] ice tea. She then became dehydrated urine became concentrated her pain worsened predominantly back and knees. In the ER parenteral opiates did not remit her pain she was typically recommended for admission. We just discharged her on 19 April. She denies any other symptoms of illness she has no urine infection hemoglobin is stable. Allergies Allergy/AdvReac Type Severity Reaction Status Date / Time peanut Allergy Intermediate ITCHY HIVES Verified 12/14/22 01:27 Home Medications Medication Instructions Recorded Confirmed Type cetirizine 10 mg tablet 10 mg PO HS PRN Congestion 04/18/20 04/22/23 History acetaminophen 325 mg tablet 650 mg PO DIRECTED PRN Pain 12/13/21 04/22/23 History crizanlizumab-tmca 10 mg/mL See Rx Instructions .Route .COMPLEX 06/30/22 04/22/23 History intravenous solution (Adakveo) budesonide-formoterol HFA 80 2 puff inhalation BID PRN 12/14/22 04/22/23 History mcg-4.5 mcg/actuation aerosol Shortness Of Breath Or Wheezing inhaler (Symbicort) oxycodone 5 mg tablet 10 mg PO Q8H PRN pain #20 tabs 04/19/23 04/22/23 Rx Past Med/Surg History Medical History Abnormal LFTs Anxiety Asthma Back pain Constipation COVID-19 Influenza A Leukocytosis Parainfluenza Pneumonia Pyelonephritis Seasonal allergies Sepsis Sepsis Sickle cell anemia Sickle cell anemia with crisis Sickle cell crisis Sickle cell crisis Splenomegaly Transaminitis Vaginal ulceration Surgical History No pertinent past surgical history Family History Brother Sickle cell anemia Social History Smoking Status: Never smoker Second Hand Exposure: No; Do You Dip or Chew Tobacco: No; Hx Alcohol Use: No Hx Substance Use: No Preferred Language: Welsh Communication Ability: Effective Nursing Teacher Required: No Beliefs That Will Affect Care: None marital status: Single Current Living Situation: Family Current Living Situation Comment: Lives with roomates Feels Safe at Home: Yes Assistive Devices: None Review of Systems Review of Systems: Moderate to severe distress and fatigue no headache, no visual changes no speech or swallowing issues no chest pain, pressure or palpitations no shortness of breath, cough or wheezes no abdominal pain, nausea or vomiting, diarrhea or constipation no dysuria, hematuria or frequency Bilateral knee pain without redness warmth or swelling Centralized most back pain, with CVA tenderness or radicular pain no bruising, bleeding or rashes no focal signs of weakness or numbness or altered sensation no complaints of anxiety or depression.. Physical Exam Physical Exam: The patient appeared well nourished and normally developed. Vital signs as documented. Head exam is normocephalic atraumatic Neck is without JVD, thyromegaly, or carotid bruits. Lungs are clear to auscultation, no focal loss of breath sounds Cardiac exam, Rhythm is regular.. No murmurs, rubs or gallops. Abdominal exam reveals normal bowel sounds, soft non tender, no masses Extremities are nonedematous and both pedal pulses are present Neurologic exam is alert and oriented, no focal loss of strength or sensation Skin is without bruises or rashes Psychologically is without concerns for anxiety or depression.. Results & Data Results & Data Vital Signs (Past 12 Hours) Vital Signs Temp Pulse Pulse Resp BP BP Pulse Ox 04/22/23 15:15 98.2 F 91 H 20 113/74 100 04/22/23 11:01 88 12 98 04/22/23 11:01 121/60 04/22/23 11:00 87 13 94 04/22/23 14:00 98.1 F 74 18 110/68 97 04/22/23 10:00 77 14 99 04/22/23 10:00 100/59 L 09/06/23 09:01 80 12 98 04/22/23 10:22 04/22/23 09:02 83 04/22/23 06:20 85 16 122/90 98 04/22/23 05:01 89 16 116/90 100 O2 Del Method 04/22/23 15:15 Room Air 04/22/23 11:01 04/22/23 11:01 04/22/23 11:00 04/22/23 14:00 Room Air 04/22/23 10:00 04/22/23 10:00 04/22/23 09:01 04/22/23 10:22 Room Air 04/22/23 09:02 04/22/23 06:20 Room Air 04/22/23 05:01 Room Air Code Status & VTE Plan VTE Prophylaxis Plan VTE Prophylaxis will be ordered: Yes PG Care Time/CCT Total # of Minutes Spent Total Time Spent with Patient: Total time spent is greater than 50% in coordination of care (as documented) at patient's floor/unit and/or counseling patient: Coding Level of Care Code 38694 INT INP/OBS CARE 2/55MIN Diagnoses Sickle cell crisis D57.00
[2023-04-23] MEDS: HYDROmorphone INJ 0.5 MG/0.5 ML SYR IV PRN (01:54)
--- NOTE | 2023-04-23 07:59 | Hospitalist Progress Note ---
Date of Service April 23, 2023 Assessment & Plan (1) Sickle cell crisis: Plan: Sickle Cell Crisis -Currently managed on monthly Adakveo infusions and Oxycodone 10 mg Q8H PRN -Urine analysis is pending to evaluate for UTI. Serology did not show any e vidence of renal distress -This is a readmission for sickle cell pain crisis and patient has received 12 mg of Dilaudid IV and 8 mg of Zofran, and 3 L of IV fluid during the hospital course. Her pain appears to be improving and managed at this time. -Will continue with opiate therapy for pain control as needed along with adjunctive Tylenol and Toradol Asthma/History of reactive airway disease -Continue Symbicort therapy twice daily -Surgery zine as needed DVT prevention is enoxaparin Admission and Anticipated Discharge Date Admission Date: April 22, 2023 Mikey Kimbrough is a 23 year-old female with a past medical history of sickle cell disease readmitted for sickle cell pain crisis. She was recently admitted on 04/18 and discharged 04/19 for the same concern. Her current pain episode started 2 days ago on the night of 04/21. She was wa tching TV at home and began experiencing lower back mid-line and bilateral knee pain. As per review of Dr. Negron's note, she drank 2 pitchers of [employer] ice tea, became dehydrated with her urine becoming concentrated, and her pain subsequently worsened. She describes the back pain as being sharp while the knee pain as being dull. Pain level was rated 7 out of 10. She tried taking Oxycodone for pain relief but seeing that there was no improvement, presented to the ED and was later admitted. Triggers of pain crisis include stress or general illness. Heat therapy appears to help sometimes with her pains. She estimates 10 episodes of sickle cell pain crisis in the last 3 months with her pain usually managed with monthly Adakveo infusions and Oxycodone 10 mg Q8H PRN. Patient reports that she is currently feeling much better with her back and knee pain being much improved. She did wake up this morning nauseated and with a frontal. Zofran 4 mg IV and acetaminophen 1000 mg PO were administered which provided resolution of symptoms. Her headache was described as constant and squeezing with apain level rated 8 out of 10. Over the last 24 hours, patient has received 12 mg of Dilaudid IV and 8 mg of Zofran, and 3 L of IV fluid. She denies any fever, chills, chest pain, SOB, vomiting, or dysuria. Her appetite has been good and she reports good energy level and that her sleep has been fine. Her brother also has sickle cell disease and her father and mother both have the sickle cell trait. 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 She occasionally has alcohol on the weekends and will have at least 4 shots. She denies any tobacco, e-cigarette, or marijuana use. Review of Systems Review of Systems: As per HPI. Physical Exam Constitutional: Well-appearing and not in acute distress. Respiratory: Normal repsiratory effort. Lungs are clear to auscultation bilaterally. Cardiovascular: Regular rate and rhythm. Normal S1 and S2 sounds. No murmurs, rubs or gallops. Gastrointestinal (Abdomen): Normoactive bowel sounds in all 4 quadrants. Neurologic: Normal mood and affect. Results & Data Results & Data Vital Signs (Past 12 Hours) Vital Signs Temp Pulse Resp BP BP Pulse Ox O2 Del Method 04/22/23 21:50 Room Air 04/22/23 21:44 36.6 C 87 18 97/61 L 108/73 99 Room Air
[2023-04-23] MEDS: ENOXAPARIN INJ 40 MG/0.4 ML SYR SQ SCH (09:45)
[2023-04-23 15:07] LABS: Appearance Urine Clear (Clear); Bacteria Urine Automated Negative (Negative); Bilirubin Urine Negative (Negative); Blood Urine 3+ (Negative); Color Urine Yellow; Epithelial Cell Urine Auto >30 /lpf (0-5); Glucose Urine UA Negative (Negative); Ketones Urine Negative (Negative); Leukocyte Esterase Urine Negative (Negative); Nitrite Urine Negative (Negative); Protein Urine Negative (Negative); RBC Urine Automated >30 /hpf (0-4); Specific Gravity Urine 1.011 (1.000-1.030); Urobilinogen Urine Negative (Negative); pH Urine 8.5 (4.5-7.5)
--- NOTE | 2023-04-23 15:23 | Discharge Summary ---
Date of Service April 23, 2023 Admission HPI Per Admitting Provider 23-year-old female readmission physical cell crisis. Patient admits to drinking 2 pitchers of [employer] ice tea. She then became dehydrated urine became concentrated her pain worsened predominantly back and knees. In the ER parenteral opiates did not remit her pain she was typically recommended for admission. We just discharged her on 19 April. She denies any other symptoms of illness she has no urine infection hemoglobin is stable. Principal Diagnosis Sickle Cell Crisis Discharge Exam Constitutional: well-appearing, no acute distress HEENT: NCAT, no conjunctival injection CV: regular rhythm, no murmur appreciated, extremities well-perfused, no LE edema Resp: CTABL, no wheezes/rales/rhonchi appreciated, no increased work of breathing MSK: no gross deformities appreciated Skin: warm, dry, no rash appreciated Neuro: alert, oriented, no focal neurologic deficit appreciated Discharge Data Allergies Allergy/AdvReac Type Severity Reaction Status Date / Time peanut Allergy Intermediate ITCHY HIVES Verified 12/14/22 01:27 Consultations 04/22/23 08:24 ED Decision to Admit Stat Hospital Course (1) Sickle cell crisis: Sickle Cell Crisis -Currently managed on monthly Adakveo infusions and Oxycodone 10 mg Q8H PRN -Serology did not show any evidence of renal distress -This is a readmission for sickle cell pain crisis and patient has received 12 mg of Dilaudid IV and 8 mg of Zofran, and 3 L of IV fluid during the hospital course. Her pain appears to be improving and managed at this time. -Plan to resume home regimen, encourage good hydration Asthma/History of reactive airway disease -Continue Symbicort therapy twice daily -Ceterizine as needed Total Time Total Time Spent Total Time Spent (In Minutes): see attending attestation Discharge Plan Discharge Items Patient Disposition: Home - Self-Care Reason For Visit: SICKLE CELL CRISIS Discharge Diagnosis: Sickle Cell Crisis Condition on Discharge: Good Activity: Per Instructions section Non-emergency contact: Primary Care Provider Call non-emergency contact if: you have any medication questions, your symptoms worsen and your pain is not controlled Follow-up/Referrals: [facility] [Primary Care Provider] - Diet: Regular Addtl Attending Provider Instructions: You were admitting with a sickle cell crisis. We were able to get your pain under control with IV fluids and IV pain medications. It's important to drink plenty of fluids for the next few days. We did not make any changes to your medications. You should follow up with your primary care doctor and operator cavity pump as normally scheduled. If you pain gets worse, please return for re-evaluation. Pending Studies at Discharge: No Stand-Alone Forms: My [facility], Pain - Opioid Pain Management Medications and DC Order Prescriptions: Continued cetirizine 10 mg tablet 10 mg PO HS PRN (Reason: Congestion) acetaminophen 325 mg tablet 650 mg PO DIRECTED PRN (Reason: Pain) budesonide-formoterol [Symbicort] 80-4.5 mcg/actuation Hfa Aerosol Inhaler 2 puff INHALATION BID PRN (Reason: Shortness Of Breath Or Wheezing) oxycodone 5 mg tablet 10 mg PO Q8H PRN (Reason: pain) Qty: 20 0RF Adakveo 10 mg/mL Solution See Rx Instructions .ROUTE .COMPLEX Rx Instructions: infusion monthly per pt Discharge Orders: Discharge Order (Routine); Ordered 04/23/23 Ordered By: Jhoana Huber/Other Patient Handouts: Sickle Cell Anemia Admission Data Admit Date/Time: 04/22/23 08:21 Attending Provider: Alana Rodrigez Admit Provider: Kentrell Negron Primary Care Provider: [facility] Other Providers: Kentrell Negron Other Interventions: Discharge Summary Assessment (RN) Last Done: 04/23/23 16:16 Supervising Physician Co-Signing Physician Notes I personally examined the patient and verified knox points of history and exam, discussed case, and agree with decision making and plan documented by Dr. Jacobson and Cirilo ACUÑA. Patient clinically improved after fluids and IV hydromorphone. States pain of lower back, hips, and bilateral legs improved. She states she's ready for discharge. Patient appears comfortable seated in bed, lungs clear b/l to auscultation, regular rate and rhythm, no acute distress. Patient will followup with PCP. Discussed the importance of adequate hydration and caution with alcohol use. Resident Activity Tracking Resident Involvement: Resident Care Provided Care Provided: Adult Hospital Medicine
== END 2023-04-23 17:19 | disposition home or self-care (01) | DRG 812 ==
LOC: ED 02:27 → EDINP 08:21 → INTOOBSV 08:21 → SUATTDRO 08:21 → 3N 10:22

== ENCOUNTER 2023-05-25 04:35 | Observation (INO) ==
[2023-05-25] MEDS ORDERED: KETOROLAC 30 MG/ML VIAL IV STA (04:48)
[2023-05-25] MEDS ORDERED: ACETAMINOPHEN 1,000 MG/100 ML VIAL IV STA (04:54)
[2023-05-25] MEDS ORDERED: LORazepam 2 MG/1 ML VIAL IV STA (04:54)
[2023-05-25] MEDS ORDERED: SODIUM CHLORIDE 0.9% 1,000 ML IV SCH (05:00)
--- NOTE | 2023-05-25 05:02 | Emergency Department Note ---
History of Present Illness General Chief complaint: Pain (Generalized) Stated complaint: PAIN Time Seen by Provider: 05/25/23 04:48 History of Present Illness Maximum Pain Intensity: 8 This is a 23-year-old female presenting to the emergency department for evaluation of back and leg pain. Patient is known to this department due to frequency of visits. She has a history of sickle cell disease and is currently under the care of Dr. Gallegos at [facility]. Patient states that her pain feels similar to previous sickle cell exacerbations. She rates the pain an 8/10. No chest pain or difficulty breathing. She has not taken anything for symptoms. Home Medications Medication Instructions Recorded Confirmed Type cetirizine 10 mg tablet 10 mg PO HS PRN Congestion 04/18/20 05/25/23 History acetaminophen 325 mg tablet 650 mg PO DIRECTED PRN Pain 12/13/21 05/25/23 History crizanlizumab-tmca 10 mg/mL See Rx Instructions .Route .COMPLEX 06/30/22 05/25/23 History intravenous solution (Adakveo) budesonide-formoterol HFA 80 2 puff inhalation BID PRN 12/14/22 05/25/23 History mcg-4.5 mcg/actuation aerosol Shortness Of Breath Or Wheezing inhaler (Symbicort) oxycodone 5 mg tablet 10 mg PO Q8H PRN pain #20 tabs 04/19/23 05/25/23 Rx folic acid 1 mg tablet 1 mg PO DAILY 05/25/23 05/25/23 History Allergies Allergy/AdvReac Type Severity Reaction Status Date / Time peanut Allergy Intermediate ITCHY HIVES Verified 12/14/22 01:27 Past Med/Surg History Medical History Abnormal LFTs Anxiety Asthma Back pain Constipation COVID-19 Influenza A Leukocytosis Parainfluenza Pneumonia Pyelonephritis Seasonal allergies Sepsis Sepsis Sickle cell anemia Sickle cell anemia with crisis Sickle cell crisis Sickle cell crisis Splenomegaly Transaminitis Vaginal ulceration Surgical History No pertinent past surgical history Family History Brother Sickle cell anemia Social History Smoking Status: Never smoker Second Hand Exposure: No; Do You Dip or Chew Tobacco: No; Hx Alcohol Use: Yes Alcohol type: wine and hard liquor Alcohol Intake Frequency: Monthly or Less Alcohol Intake Frequency Comment: 1 drink Hx Substance Use: No Preferred Language: Nepali Communication Ability: Effective Chemical Mixer Required: No Beliefs That Will Affect Care: Yarsanism marital status: Single Current Living Situation: Other Current Living Situation Comment: Roomates Other Information That Helps Us Care for You: No Feels Safe at Home: Yes Safety Concerns: Feels Safe At This Time Assistive Devices: Glasses Review of Systems A total of 10 systems reviewed and were otherwise negative Physical Exam Vital Signs Vital Signs - 24 hr 05/25/23 04:43 05/25/23 06:03 05/25/23 08:23 Temperature 36.8 C Temperature Source Temporal Artery Scan Pulse Rate 107 H Pulse Rate [Finger] 85 100 H Pulse Rhythm [Finger] Regular Pulse Strength [Finger] Normal Respiratory Rate 18 16 16 Respiratory Effort / Characteristics Non-Labored Spontaneous Non-Labored Spontaneous Respiratory Depth Normal Normal Respiratory Pattern Regular Regular Blood Pressure 115/72 Blood Pressure [Left Arm] 128/87 107/64 Blood Pressure Mean 86 Blood Pressure Mean [Left Arm] 100 78 Blood Pressure Position Sitting Blood Pressure Position [Left Arm] Semi-fowlers Pulse Oximetry 98 99 100 Oxygen Delivery Method Room Air Room Air Room Air Sepsis Recent Fever Within 48 Hours No Sepsis New/Unexplained Change in Mental Status N/A Sepsis Action Taken by Nursing No Action Required VITALS: Vitals are noted on the nurse's note and reviewed by myself. Vital signs stable. GENERAL: Well-developed, well-nourished, black female, who is in no acute distress and resting comfortably. Patient is cooperative with the examination. HEAD: Normocephalic atraumatic. NECK: Supple without nuchal rigidity. No lymphadenopathy. No thyromegaly. Cervical spine is nontender. HEART: Regular rate and rhythm without murmurs gallops or rubs. LUNGS: Clear to auscultation bilaterally without wheezes, rales or rhonchi. No retractions or accessory muscle use. ABDOMEN: Positive normal bowel sounds x 4. Soft, nontender, without masses or organomegaly. No guarding or rebound tenderness. MUSCULOSKELETAL: No muscle atrophy, erythema, or edema noted. Full range of motion in all extremities. Course Administered Medications Enoxaparin Sodium (Enoxaparin Inj 40 Mg/0.4 Ml Syr) 40 mg SQ Q24H ROBYN Stop: 06/24/23 15:59 Last Admin: 05/25/23 16:10 Dose: Not Given Documented By: FERNANDO Hydromorphone HCl (Hydromorphone Inj 1 Mg/Ml Syringe) 1 mg IV Q1H PRN PRN Reason: Pain Stop: 06/08/23 12:32 Last Admin: 05/25/23 20:56 Dose: 1 mg Documented By: Admin: 05/25/23 13:26 Dose: 1 mg Documented By: CATERINA Ceftriaxone Sodium 2,000 mg/ (Dextrose) 70 mls @ 100 mls/hr IV Q24H ROBYN; Prot ocol Stop: 06/04/23 19:14 Last Infusion: 05/25/23 19:57 Dose: 0 mls/hr Documented By: Admin: 05/25/23 19:15 Dose: 100 mls/hr Documented By: ANDREA Potassium Chloride/Sodium Chloride (1/2 Nss + 20meq Kcl 1000ml) 20 meq in 1,000 mls @ 125 mls/hr IV .Q8H ROBYN; Protocol Stop: 06/24/23 19:14 Last Admin: 05/25/23 19:15 Dose: 125 mls/hr Documented By: ANDREA Ondansetron HCl (Ondansetron Inj 2 Mg/Ml 2 Ml Vial) 4 mg IV Q6H PRN PRN Reason: Nausea Stop: 06/24/23 12:32 Last Admin: 05/25/23 14:28 Dose: 4 mg Documented By: CEF Discontinued Medications Hydromorphone HCl (Hydromorphone Inj 0.5 Mg/0.5 Ml Syr) 0.5 mg IV NOW STA Stop: 05/25/23 06:39 Last Admin: 05/25/23 06:51 Dose: 0.5 mg Documented By: JUSTO Hydromorphone HCl (Hydromorphone Inj 1 Mg/Ml Syringe) 1 mg IV Q6H PRN PRN Reason: Pain Stop: 06/08/23 08:21 Last Admin: 05/25/23 08:26 Dose: 1 mg Documented By: CATERINA Hydromorphone HCl (Hydromorphone Inj 1 Mg/Ml Syringe) 1 mg IV NOW STA Stop: 05/25/23 09:26 Last Admin: 05/25/23 09:42 Dose: 1 mg Documented By: CATERINA Sodium Chloride (Nss) 1,000 mls @ 999 mls/hr IV .Q1H1M ROBYN Stop: 05/25/23 06:00 Last Infusion: 05/25/23 08:42 Dose: 0 mls/hr Documented By: Admin: 05/25/23 05:42 Dose: 999 mls/hr Documented By: JUSTO Acetaminophen (Ofirmev) 1,000 mg in 100 mls @ 400 mls/hr IV NOW STA Stop: 05/25/23 05:08 Last Infusion: 05/25/23 06:09 Dose: 0 mls/hr Documented By: Admin: 05/25/23 05:47 Dose: 400 mls/hr Documented By: JUSTO Lactated Ringer's (Lr) 500 mls @ 999 mls/hr IV .Q31M ONE Stop: 05/25/23 09:01 Last Infusion: 05/25/23 10:26 Dose: 0 mls/hr Documented By: Admin: 05/25/23 08:42 Dose: 999 mls/hr Documented By: CATERINA Lactated Ringer's (Lr) 1,000 mls @ 80 mls/hr IV .[id number] ROBYN Stop: 06/24/23 08:44 Last Infusion: 05/25/23 14:25 Dose: 0 mls/hr Documented By: Admin: 05/25/23 08:42 Dose: 80 mls/hr Documented By: CATERINA Lactated Ringer's (Lr) 1,000 mls @ 125 mls/hr IV .Q8H ROBYN Stop: 05/26/23 12:32 Last Infusion: 05/25/23 20:56 Dose: 0 mls/hr Documented By: Admin: 05/25/23 13:26 Dose: 125 mls/hr Documented By: CATERINA Influenza Virus Vaccine Quadrival (Influenza Virus Quadrivalent Vaccine (Iiv4) 0.5 Ml Syr) 0.5 ml IM .ONCE ONE Stop: 05/25/23 14:22 Last Admin: 05/25/23 16:07 Dose: 0.5 ml Documented By: CEF Ketorolac Tromethamine (Ketorolac 30 Mg/Ml Vial) 30 mg IV NOW STA Stop: 05/25/23 04:49 Last Admin: 05/25/23 05:44 Dose: 30 mg Documented By: JUSTO Lorazepam (Lorazepam 2 Mg/1 Ml Vial) 0.5 mg IV NOW STA Stop: 05/25/23 04:55 Last Admin: 05/25/23 05:42 Dose: 0.5 mg Documented By: JUSTO Oxycodone HCl (Oxycodone Ir Home Pack) 1 each PO UD ONE Stop: 05/25/23 06:40 Last Admin: 05/25/23 06:48 Dose: Not Given Documented By: JUSTO Medical Decision Making Differential Diagnosis Differential diagnosis includes, but is not limited to: Sickle cell pain, myocardial infarction, dysrhythmia, pericarditis, pneumothorax, aortic aneurysm/dissection, DVT/PE, anxiety, GERD, PUD, electrolyte imbalance, thyroid disorder, pneumonia, bronchitis, pancreatitis, and others Laboratory Data 05/25/23 05:04 05/25/23 05:04 Lab Results 05/25/23 05/25/23 05/25/23 Range/Units 05:04 05:04 05:04 WBC 11.34 H (4.8-10.8) K/ul RBC 3.59 L (4.20-5.40) M/uL Hgb 11.0 L (12.0-16.0) g/dl Hct 29.9 L (37.0-47.0) % MCV 83.3 (80.0-100.0) fL MCH 30.6 (25.0-34.0) pg MCHC 36.8 H (32.0-36.0) g/dL RDW Std Deviation 41.6 (36.4-46.3) fL RDW Coeff of Kashif 14.0 (11.5-14.5) % Plt Count 344 (130-400) K/uL MPV 9.8 (9.4-12.4) fL Immature Gran % (Auto) 0.4 % Neut % (Auto) 52.1 % Lymph % (Auto) 33.1 % Barrow % (Auto) 9.5 % Eos % (Auto) 3.8 % Baso % (Auto) 1.1 % Reticulocyte % (Auto) 7.5 H (0.5-2.0) % Neut # (Auto) 5.91 (1.40-6.50) K/uL Lymph # (Auto) 3.75 H (1.20-3.40) K/uL Barrow # (Auto) 1.08 H (0.11-0.59) K/uL Eos # (Auto) 0.43 (0.00-0.50) K/uL Baso # (Auto) 0.13 (0.00-0.20) K/uL Reticulocyte # 0.27 H (0.02-0.10) 10^6/uL Immature Gran # (Auto) 0.04 (0.01-0.20) K/uL Absolute Nucleated RBC 0.10 (0.00-0.12) K/uL Nucleated RBC % (auto) 0.9 % Sodium 136 (136-145) mmol/L Potassium 3.6 (3.5-5.1) mmol/L Chloride 108 H (98-107) mmol/L Carbon Dioxide 24 (21-32) mmol/L Anion Gap 4 (3-11) BUN 8 (6-23) mg/dl Creatinine 0.59 L (0.6-1.2) mg/dl Est Cr Clr Drug Dosing 145.4 ml/min Est GFR ( Amer) > 150.0 ml/min Est GFR (Non-Af Amer) 130.1 ml/min BUN/Creatinine Ratio 13.6 (10-20) Glucose 111 H (70-99(Fasting)) mg/dl Calcium 9.5 (8.6-10.3) mg/dl Total Bilirubin 1.6 H (0.2-1.0) mg/dl AST 22 (13-39) U/L ALT 19 (7-52) U/L Alkaline Phosphatase 52 (34-104) U/L Total Creatine Kinase 61 (26-192) U/L Troponin I High Sens < 2.3 (0-14) pg/ml C-Reactive Protein < 0.50 (0-0.5) mg/dl Total Protein 7.1 (6.0-8.3) gm/dl Albumin 4.5 (3.4-5.0) gm/dl Globulin 2.6 (2.5-4.0) gm/dl Albumin/Globulin Ratio 1.7 (0.9-2) Lipase 13 (11-82) U/L Procalcitonin (0-0.5) ng/ml HCG, Qual (Negative) Urine Color Urine Appearance (Clear) Urine pH (4.5-7.5) Ur Specific Gary (1.000-1.030) Urine Protein (Negative) Urine Glucose (UA) (Negative) Urine Ketones (Negative) Urine Blood (Negative) Urine Nitrite (Negative) Urine Bilirubin (Negative) Urine Urobilinogen (Negative) Ur Leukocyte Esterase (Negative) Urine WBC (Auto) (0-5) /hpf Urine RBC (Auto) (0-4) /hpf U Hyaline Cast (Auto) (0-5) /lpf U Epithel Cells (Auto) (0-5) /lpf Urine Bacteria (Auto) (Negative) Urine Opiates Screen (Neg) Ur Methadone, Qual (Neg) Urine Barbiturates (Neg) Ur Phencyclidine (PCP) (Neg) U Amphetamin/Meth Scrn (Neg) MDMA (Ecstasy) Screen (Neg) U Benzodiazepines Scrn (Neg) Ur Cocaine Metabolite (Neg) U Marijuana (THC) Screen (Neg) Ethyl Alcohol mg/dL < 10.0 (<10.0) mg/dl 05/25/23 05/25/23 05/25/23 Range/Units 05:04 05:10 05:10 WBC (4.8-10.8) K/ul RBC (4.20-5.40) M/uL Hgb (12.0-16.0) g/dl Hct (37.0-47.0) % MCV (80.0-100.0) fL MCH (25.0-34.0) pg MCHC (32.0-36.0) g/dL RDW Std Deviation (36.4-46.3) fL RDW Coeff of Kashif (11.5-14.5) % Plt Count (130-400) K/uL MPV (9.4-12.4) fL Immature Gran % (Auto) % Neut % (Auto) % Lymph % (Auto) % Barrow % (Auto) % Eos % (Auto) % Baso % (Auto) % Reticulocyte % (Auto) (0.5-2.0) % Neut # (Auto) (1.40-6.50) K/uL Lymph # (Auto) (1.20-3.40) K/uL Barrow # (Auto) (0.11-0.59) K/uL Eos # (Auto) (0.00-0.50) K/uL Baso # (Auto) (0.00-0.20) K/uL Reticulocyte # (0.02-0.10) 10^6/uL Immature Gran # (Auto) (0.01-0.20) K/uL Absolute Nucleated RBC (0.00-0.12) K/uL Nucleated RBC % (auto) % Sodium (136-145) mmol/L Potassium (3.5-5.1) mmol/L Chloride (98-107) mmol/L Carbon Dioxide (21-32) mmol/L Anion Gap (3-11) BUN (6-23) mg/dl Creatinine (0.6-1.2) mg/dl Est Cr Clr Drug Dosing ml/min Est GFR ( Amer) ml/min Est GFR (Non-Af Amer) ml/min BUN/Creatinine Ratio (10-20) Glucose (70-99(Fasting)) mg/dl Calcium (8.6-10.3) mg/dl Total Bilirubin (0.2-1.0) mg/dl AST (13-39) U/L ALT (7-52) U/L Alkaline Phosphatase (34-104) U/L Total Creatine Kinase (26-192) U/L Troponin I High Sens (0-14) pg/ml C-Reactive Protein (0-0.5) mg/dl Total Protein (6.0-8.3) gm/dl Albumin (3.4-5.0) gm/dl Globulin (2.5-4.0) gm/dl Albumin/Globulin Ratio (0.9-2) Lipase (11-82) U/L Procalcitonin (0-0.5) ng/ml HCG, Qual Negative (Negative) Urine Color Yellow Urine Appearance Clear (Clear) Urine pH 6.0 (4.5-7.5) Ur Specific Gary 1.013 (1.000-1.030) Urine Protein 1+ H (Negative) Urine Glucose (UA) Negative (Negative) Urine Ketones Negative (Negative) Urine Blood Trace H (Negative) Urine Nitrite Negative (Negative) Urine Bilirubin Negative (Negative) Urine Urobilinogen Negative (Negative) Ur Leukocyte Esterase 1+ H (Negative) Urine WBC (Auto) >30 H (0-5) /hpf Urine RBC (Auto) 0-4 (0-4) /hpf U Hyaline Cast (Auto) 1-5 (0-5) /lpf U Epithel Cells (Auto) >30 H (0-5) /lpf Urine Bacteria (Auto) Negative (Negative) Urine Opiates Screen Neg (Neg) Ur Methadone, Qual Neg (Neg) Urine Barbiturates Neg (Neg) Ur Phencyclidine (PCP) Neg (Neg) U Amphetamin/Meth Scrn Neg (Neg) MDMA (Ecstasy) Screen Neg (Neg) U Benzodiazepines Scrn Neg (Neg) Ur Cocaine Metabolite Neg (Neg) U Marijuana (THC) Screen Neg (Neg) Ethyl Alcohol mg/dL (<10.0) mg/dl 05/25/23 Range/Units 08:29 WBC (4.8-10.8) K/ul RBC (4.20-5.40) M/uL Hgb (12.0-16.0) g/dl Hct (37.0-47.0) % MCV (80.0-100.0) fL MCH (25.0-34.0) pg MCHC (32.0-36.0) g/dL RDW Std Deviation (36.4-46.3) fL RDW Coeff of Kashif (11.5-14.5) % Plt Count (130-400) K/uL MPV (9.4-12.4) fL Immature Gran % (Auto) % Neut % (Auto) % Lymph % (Auto) % Barrow % (Auto) % Eos % (Auto) % Baso % (Auto) % Reticulocyte % (Auto) (0.5-2.0) % Neut # (Auto) (1.40-6.50) K/uL Lymph # (Auto) (1.20-3.40) K/uL Barrow # (Auto) (0.11-0.59) K/uL Eos # (Auto) (0.00-0.50) K/uL Baso # (Auto) (0.00-0.20) K/uL Reticulocyte # (0.02-0.10) 10^6/uL Immature Gran # (Auto) (0.01-0.20) K/uL Absolute Nucleated RBC (0.00-0.12) K/uL Nucleated RBC % (auto) % Sodium (136-145) mmol/L Potassium (3.5-5.1) mmol/L Chloride (98-107) mmol/L Carbon Dioxide (21-32) mmol/L Anion Gap (3-11) BUN (6-23) mg/dl Creatinine (0.6-1.2) mg/dl Est Cr Clr Drug Dosing ml/min Est GFR ( Amer) ml/min Est GFR (Non-Af Amer) ml/min BUN/Creatinine Ratio (10-20) Glucose (70-99(Fasting)) mg/dl Calcium (8.6-10.3) mg/dl Total Bilirubin (0.2-1.0) mg/dl AST (13-39) U/L ALT (7-52) U/L Alkaline Phosphatase (34-104) U/L Total Creatine Kinase (26-192) U/L Troponin I High Sens (0-14) pg/ml C-Reactive Protein (0-0.5) mg/dl Total Protein (6.0-8.3) gm/dl Albumin (3.4-5.0) gm/dl Globulin (2.5-4.0) gm/dl Albumin/Globulin Ratio (0.9-2) Lipase (11-82) U/L Procalcitonin 0.06 (0-0.5) ng/ml HCG, Qual (Negative) Urine Color Urine Appearance (Clear) Urine pH (4.5-7.5) Ur Specific Gary (1.000-1.030) Urine Protein (Negative) Urine Glucose (UA) (Negative) Urine Ketones (Negative) Urine Blood (Negative) Urine Nitrite (Negative) Urine Bilirubin (Negative) Urine Urobilinogen (Negative) Ur Leukocyte Esterase (Negative) Urine WBC (Auto) (0-5) /hpf Urine RBC (Auto) (0-4) /hpf U Hyaline Cast (Auto) (0-5) /lpf U Epithel Cells (Auto) (0-5) /lpf Urine Bacteria (Auto) (Negative) Urine Opiates Screen (Neg) Ur Methadone, Qual (Neg) Urine Barbiturates (Neg) Ur Phencyclidine (PCP) (Neg) U Amphetamin/Meth Scrn (Neg) MDMA (Ecstasy) Screen (Neg) U Benzodiazepines Scrn (Neg) Ur Cocaine Metabolite (Neg) U Marijuana (THC) Screen (Neg) Ethyl Alcohol mg/dL (<10.0) mg/dl MDM Narrative Physical exam and history were performed. Nursing notes, EMR, and Medication List were personally reviewed. No social concerns were identified as barriers to patients care. Patient appears to have reports of pain bringing her to the ER. This is similar to her sickle cell pain. IV access was established and labs were obtained. Patient was hydrated with normal saline and given IV Toradol, IV Tylenol, and IV Ativan. She was also ordered additional IV Dilaudid. Patient's blood work is as above and was reviewed. Hemoglobin is 11 which is roughly baseline. Reticulocyte count is 7.5, which is slightly elevated from her baseline. Bilirubin is 1.6. She does not have a significantly elevated white blood cell count. Troponin x1 is negative. Transaminases are not diagnostic. I discussed options of care with the patient. She tells me that she has had pain for greater than 1 week, and was initially planning to go home for a treatment for her sickle cell, but felt that she could not make it because of the pain. I did offer discharge home versus admission to the facility, and initially she was interested in discharge. The patient began asking for very high doses of narcotics, which as she is essentially falling asleep in the ER room, does not appear appropriate. The patient began to bargain for narcotics, and is requesting to stay in the ER to see if pain medication is "going to work". I explained to the patient that if she required further intervention, and did not feel safe going home, that I would speak to the hospitalist team. The patient is requesting admission at this time. Case was discussed with the on-call hospitalist team. Please see their dictation for further patient co urse, plan, disposition. The chart was completed utilizing [email or web address] Speech Voice Recognition Software. Grammatical errors, random word insertions, pronoun errors, and incomplete sentences are an occasional consequence of this system due to software limitations, ambient noise, and hardware issues. Any formal questions or concerns about the content, text, or information contained within the body of this dictation should be directly addressed to the provider for clarification. . Impression & Plan Sickle-cell disease with pain Discharge Plan Visit Data Chief Complaint: Pain (Generalized) Stated Complaint: PAIN ED Provider: Yaquelin Mc ED Midlevel Provider: Fausto Sheridan Discharge Problem: Sickle-cell disease with pain Patient Disposition: Admitted As Inpatient Discharge Instructions Interventions: ED Discharge Assessment Last Done: 05/25/23 12:33
[2023-05-25 05:37] LABS: Basophils # (auto) 0.13 K/uL (0.00-0.20); Basophils % (auto) 1.1 %; Eosinophils # (auto) 0.43 K/uL (0.00-0.50); Eosinophils % (auto) 3.8 %; Hematocrit (blood only) 29.9 % (37.0-47.0); Immature Granulocytes # (auto) 0.04 K/uL (0.01-0.20); Immature Granulocytes % (auto) 0.4 %; Lymphocytes # (auto) 3.75 K/uL (1.20-3.40); Lymphocytes % (auto) 33.1 %; Mean Corpuscular Hemoglobin 30.6 pg (25.0-34.0); Mean Corpuscular Hgb Conc 36.8 g/dL (32.0-36.0); Mean Corpuscular Volume 83.3 fL (80.0-100.0); Mean Platelet Volume 9.8 fL (9.4-12.4); Monocytes # (auto) 1.08 K/uL (0.11-0.59); Monocytes % (auto) 9.5 %; Neutrophils # (auto) 5.91 K/uL (1.40-6.50); Neutrophils % (auto) 52.1 %; Nucleated RBC % (auto) 0.9 %; Platelet Count 344 K/uL (130-400); RDW Standard Deviation 41.6 fL (36.4-46.3); Red Blood Count 3.59 M/uL (4.20-5.40); Reticulocyte % 7.5 % (0.5-2.0); Reticulocytes # 0.27 10^6/uL (0.02-0.10); White Blood Count 11.34 K/ul (4.8-10.8)
[2023-05-25 05:41] LABS: Albumin Level 4.5 gm/dl (3.4-5.0); Anion Gap 4 (3-11); Bilirubin,Total 1.6 mg/dl (0.2-1.0); Calcium 9.5 mg/dl (8.6-10.3); Carbon Dioxide 24 mmol/L (21-32); Chloride 108 mmol/L (98-107); Potassium 3.6 mmol/L (3.5-5.1); Pregnancy Test, Serum Negative (Negative); Sodium 136 mmol/L (136-145)
[2023-05-25 05:47] LABS: Alanine Aminotransferase 19 U/L (7-52); Albumin Globulin Ratio 1.7 (0.9-2); Alkaline Phosphatase 52 U/L (34-104); Aspartate Aminotransferase 22 U/L (13-39); BUN Creatinine Ratio 13.6 (10-20); Blood Urea Nitrogen 8 mg/dl (6-23); Creatinine Clr Calc Pharmacy 145.4 ml/min; Est GFR (African American) > 150.0 ml/min; Est GFR (Non-African American) 130.1 ml/min; Globulin 2.6 gm/dl (2.5-4.0); Glucose 111 mg/dl (70-99(Fasting)); Lipase 13 U/L (11-82); Total Protein 7.1 gm/dl (6.0-8.3)
[2023-05-25 06:03] LABS: Troponin I High Sensitivity < 2.3 pg/ml (0-14)
[2023-05-25 06:29] LABS: Appearance Urine Clear (Clear); Bacteria Urine Automated Negative (Negative); Bilirubin Urine Negative (Negative); Blood Urine Trace (Negative); Color Urine Yellow; Epithelial Cell Urine Auto >30 /lpf (0-5); Glucose Urine UA Negative (Negative); Ketones Urine Negative (Negative); Leukocyte Esterase Urine 1+ (Negative); Nitrite Urine Negative (Negative); Protein Urine 1+ (Negative); RBC Urine Automated 0-4 /hpf (0-4); Specific Gravity Urine 1.013 (1.000-1.030); Urobilinogen Urine Negative (Negative); WBC Urine Automated >30 /hpf (0-5)
[2023-05-25] MEDS ORDERED: HYDROmorphone INJ 0.5 MG/0.5 ML SYR IV STA (06:38)
[2023-05-25] MEDS ORDERED: oxyCODONE IR HOME PACK PO ONE (06:39)
[2023-05-25 07:08] LABS: Amphetamines+Metham, Urine Neg (Neg); Barbiturates, Urine Neg (Neg); Benzodiazepine, Urine Neg (Neg); Cocaine, Urine Neg (Neg); MDMA (Ecstacy), Urine Neg (Neg); Methadone, Urine Neg (Neg); Opiate, Urine Neg (Neg); Phencyclidine, Urine Neg (Neg)
--- NOTE | 2023-05-25 07:57 | History & Physical Report ---
Date of Service May 25, 2023 Assessment & Plan (1) Sickle-cell disease with pain: Plan: 23yo female w/ admission in April for simlar symptoms - reporting pain to lower back/legs similar to previous exacerbations. No hx acute chest/shortness of breath/hypoxia. Retic 7.5%. UDS negative, hcg negative. Renal function stable Hgb 11 in setting of dehydration on exam (baseline appears 9-10s) Suspect combination dehydration/alcohol use w/ travel to [place] this past week (returned on Thursday) with darkened appearance to urine. No hx DVT/PE or pleuritic chest pain reported. 100% on RA Admit med/surg (EKG NSR, trop negative, no hx acute chest) Additional 500cc bolus LR, continue @125cc/hr x 3 L UA w/ blood but no RBC/bacteria, check CK (will avoid further toradol until resulted) Pain control/antiemetics prn IV tylenol 1gm prn pain/fever/headache Oxycocone 10mg as needed for moderate pain Dilaudid 1mg q2h for now for severe pain (reports her scale is 1-2mg as needed, hx using [employer]CT[employer]ILD[employer] SUPERVISOR pump) -- monitor for need for [employer] SUPERVISOR Check CXR given reports back pain for completeness but again no SOB/hypoxia/sputum production reported or hx acute chest. 100% on RA Monitor for any infectious etiology Although patient initially denied fevers, upon re-eval, reported she felt like she was covered in sweat when sitting up at home day prior, but did not obtain a temperature but possible low grade temp. Will check biofire as well given generalized malaise/elevated lymphocytes Lovenox SQ for DVT proph Repeat labs in AM *Re-eval following 1mg IV dilaudid administration following initial 1mg dose an hour later and patient with ongoing pain. Additional dose to be provided and will change to q1h. Doesn't appear to have any decreased ROM to hips, but ?check plain films to see any underlying avascular necrosis in pt w/ sickle cell -- defer to see if pain improved with hydration/pain control for now (2) Dehydration: Plan: recent travel/dehydration IVF in ER, additional 500cc bolus for mild tachycardia (blood cx/urine cx pending, denied fevers though but significant weakness reported -- non focal on exam) Continue LR @ 125cc/hr x 3L as above Encourage hydration/limit alcohol use at discharge (3) Leukocytosis: Plan: suspect reactive, but checking procal/blood cultures, will monitor urine cx/abx if indicated (4) Anxiety: Plan: does not appear overly anxious but does have frustrations about staff/frequent visits to ER for need for pain control and stigma (also for her brother) support provided for patient can message service excellence tomorrow, (5) Seasonal allergies: Plan: continue zyrtec prn, Symbicort BID prn History of Present Illness Chief Complaint: back/leg pain Primary Care Provider: [facility] 23yo female with PMHx significant for sickle cell disease, followed by Dr. Gallegos at [facility], presented with back/leg pain that feels similar to previous sickle cell exacerbations. Appears patient was admitted 04/22-04/23 for similar complaints felt related to her sickle cell disease and was provided IV hydration, IV pain medication and antiemetics and discharged on oral oxycodone. 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 Utilizing NSAIDs/tylenol at home. SHe reports that she had been feeling weak for about a week but couldn't miss the wedding. Has been having a change in her urinary stream/decreased frequency and darkened in color. She reports pain down her legs to level of knee, no increased swelling/calf tenderness. She reports she was given dilaudid 0.5mg but her usual scale is 1-2mg as needed. WIll order dose 1mg X1 now, schedule q2h and discussed can adjust as needed. She has used MANU[employer]ILD[employer] SUPER[employer]OR in the past, will monitor for need. No nausea or significant abdominal pain. Reports appetite has been ok, no vomiting. Denies recent fevers/chills, but reports feeling ill over the past week. No hx DVT/PE, no pleuritic chest pain reported. Of note, she is frustrated with some staff/how they treat her with regards to pain control as well as her brother in the area with the same issues and frustrations about stigma to provide adequate pain relief. ER Course: WBC 11.3k, hgb 11, plt 344. Chemistries with Na 136, K 3.6, BUN/Cr 8/0.59. Trop 2.3 on high sensitivity testing GIven 1L NSS, lorazepam 0.5mg IV x 1, tylenol 1gm IV, toradol 40mg IV, diladudid 0.5mg 99% on RA Will check CXR given hx sickle cell, also check CTAP given UA +blood/protein, leuk esterase/+WBC on UA and complaints of back/leg pain with hx of pyelo and reported back/leg pain. Also noting on prior MRCP w/ GB wall thickening in past, TB 1.6 but ALP wnl Urine cx pending at present, blood cultures/procal to be drawn. Allergies Allergy/AdvReac Type Severity Reaction Status Date / Time peanut Allergy Intermediate ITCHY HIVES Verified 12/14/22 01:27 Home Medications Medication Instructions Recorded Confirmed Type cetirizine 10 mg tablet 10 mg PO HS PRN Congestion 04/18/20 05/25/23 History acetaminophen 325 mg tablet 650 mg PO DIRECTED PRN Pain 12/13/21 05/25/23 History crizanlizumab-tmca 10 mg/mL See Rx Instructions .Route .COMPLEX 06/30/22 05/25/23 History intravenous solution (Adakveo) budesonide-formoterol HFA 80 2 puff inhalation BID PRN 12/14/22 05/25/23 History mcg-4.5 mcg/actuation aerosol Shortness Of Breath Or Wheezing inhaler (Symbicort) oxycodone 5 mg tablet 10 mg PO Q8H PRN pain #20 tabs 04/19/23 05/25/23 Rx folic acid 1 mg tablet 1 mg PO DAILY 05/25/23 05/25/23 History Past Med/Surg History Medical History Abnormal LFTs Anxiety Asthma Back pain Constipation COVID-19 Influenza A Leukocytosis Parainfluenza Pneumonia Pyelonephritis Seasonal allergies Sepsis Sepsis Sickle cell anemia Sickle cell anemia with crisis Sickle cell crisis Sickle cell crisis Splenomegaly Transaminitis Vaginal ulceration Surgical History No pertinent past surgical history Family History Brother Sickle cell anemia Social History Smoking Status: Never smoker Second Hand Exposure: No; Do You Dip or Chew Tobacco: No; Hx Alcohol Use: Yes Alcohol type: wine and hard liquor Alcohol Intake Freque ncy: Monthly or Less Alcohol Intake Frequency Comment: 1 drink Hx Substance Use: No Preferred Language: Georgian Communication Ability: Effective 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 Beliefs That Will Affect Care: Mormon marital status: Single Current Living Situation: Other Current Living Situation Comment: Roomates Other Information That Helps Us Care for You: No Feels Safe at Home: Yes Safety Concerns: Feels Safe At This Time Assistive Devices: Glasses Review of Systems Review of Systems: All systems reviewed & are unremarkable except as noted in HPI & below Physical Exam Physical Exam: General: WD female laying on side, reporting moderate-severe pain to her back/legs HEENT: head normocephalic, atraumatic, mmm, trachea midline Resp: decreased effort but no wheezing/crackles/rales, no tachypnea, 100% on RA CV: regular rate, slightly tachycardic to the low 100s, no significant m/r/g, no calf tenderness, pulses palpable GI: +BS, soft/NT : no specific CVA tenderness, however tender across lower back MSK/Neuro: non focal, answering questions appropriately, strength intact Psych: AOx3, cooperative with exam, frustrated with staff/pain control/stigma Results & Data Results & Data Vital Signs (Past 12 Hours) Vital Signs Temp Pulse Pulse Resp BP BP Pulse Ox 05/25/23 06:03 85 16 128/87 99 05/25/23 04:43 36.8 C 107 H 18 115/72 98 O2 Del Method 05/25/23 06:03 Room Air 05/25/23 04:43 Room Air Laboratory Results 05/25/23 05/25/23 05/25/23 Range/Units 05:10 05:10 05:04 WBC (4.8-10.8) K/ul RBC (4.20-5.40) M/uL Hgb (12.0-16.0) g/dl Hct (37.0-47.0) % MCV (80.0-100.0) fL MCH (25.0-34.0) pg MCHC (32.0-36.0) g/dL RDW Std Deviation (36.4-46.3) fL RDW Coeff of Kashif (11.5-14.5) % Plt Count (130-400) K/uL MPV (9.4-12.4) fL Immature Gran % (Auto) % Neut % (Auto) % Lymph % (Auto) % [place] % (Auto) % Eos % (Auto) % Baso % (Auto) % Reticulocyte % (Auto) (0.5-2.0) % Neut # (Auto) (1.40-6.50) K/uL Lymph # (Auto) (1.20-3.40) K/uL [place] # (Auto) (0.11-0.59) K/uL Eos # (Auto) (0.00-0.50) K/uL Baso # (Auto) (0.00-0.20) K/uL Reticulocyte # (0.02-0.10) 10^6/uL Immature Gran # (Auto) (0.01-0.20) K/uL Absolute Nucleated RBC (0.00-0.12) K/uL Nucleated RBC % (auto) % Sodium (136-145) mmol/L Potassium (3.5-5.1) mmol/L Chloride (98-107) mmol/L Carbon Dioxide (21-32) mmol/L Anion Gap (3-11) BUN (6-23) mg/dl Creatinine (0.6-1.2) mg/dl Est Cr Clr Drug Dosing ml/min Est GFR ( Amer) ml/min Est GFR (Non-Af Amer) ml/min BUN/Creatinine Ratio (10-20) Glucose (70-99(Fasting)) mg/dl Calcium (8.6-10.3) mg/dl Total Bilirubin (0.2-1.0) mg/dl AST (13-39) U/L ALT (7-52) U/L Alkaline Phosphatase (34-104) U/L Troponin I High Sens (0-14) pg/ml Total Protein (6.0-8.3) gm/dl Albumin (3.4-5.0) gm/dl Globulin (2.5-4.0) gm/dl Albumin/Globulin Ratio (0.9-2) Lipase (11-82) U/L HCG, Qual Negative (Negative) Urine Color Yellow Urine Appearance Clear (Clear) Urine pH 6.0 (4.5-7.5) Ur Specific [place] 1.013 (1.000-1.030) Urine Protein 1+ H (Negative) Urine Glucose (UA) Negative (Negative) Urine Ketones Negative (Negative) Urine Blood Trace H (Negative) Urine Nitrite Negative (Negative) Urine Bilirubin Negative (Negative) Urine Urobilinogen Negative (Negative) Ur Leukocyte Esterase 1+ H (Negative) Urine WBC (Auto) >30 H (0-5) /hpf Urine RBC (Auto) 0-4 (0-4) /hpf U Hyaline Cast (Auto) 1-5 (0-5) /lpf U Epithel Cells (Auto) >30 H (0-5) /lpf Urine Bacteria (Auto) Negative (Negative) Urine Opiates Screen Neg (Neg) Ur Methadone, Qual Neg (Neg) Urine Barbiturates Neg (Neg) Ur Phencyclidine (PCP) Neg (Neg) U Amphetamin/Meth Scrn Neg (Neg) MDMA (Ecstasy) Screen Neg (Neg) U Benzodiazepines Scrn Neg (Neg) Ur Cocaine Metabolite Neg (Neg) U Marijuana (THC) Screen Neg (Neg) Ethyl Alcohol mg/dL (<10.0) mg/dl 05/25/23 05/25/23 05/25/23 Range/Units 05:04 05:04 05:04 WBC 11.34 H (4.8-10.8) K/ul RBC 3.59 L (4.20-5.40) M/uL Hgb 11.0 L (12.0-16.0) g/dl Hct 29.9 L (37.0-47.0) % MCV 83.3 (80.0-100.0) fL MCH 30.6 (25.0-34.0) pg MCHC 36.8 H (32.0-36.0) g/dL RDW Std Deviation 41.6 (36.4-46.3) fL RDW Coeff of Kashif 14.0 (11.5-14.5) % Plt Count 344 (130-400) K/uL MPV 9.8 (9.4-12.4) fL Immature Gran % (Auto) 0.4 % Neut % (Auto) 52.1 % Lymph % (Auto) 33.1 % [place] % (Auto) 9.5 % Eos % (Auto) 3.8 % Baso % (Auto) 1.1 % Reticulocyte % (Auto) 7.5 H (0.5-2.0) % Neut # (Auto) 5.91 (1.40-6.50) K/uL Lymph # (Auto) 3.75 H (1.20-3.40) K/uL [place] # (Auto) 1.08 H (0.11-0.59) K/uL Eos # (Auto) 0.43 (0.00-0.50) K/uL Baso # (Auto) 0.13 (0.00-0.20) K/uL Reticulocyte # 0.27 H (0.02-0.10) 10^6/uL Immature Gran # (Auto) 0.04 (0.01-0.20) K/uL Absolute Nucleated RBC 0.10 (0.00-0.12) K/uL Nucleated RBC % (auto) 0.9 % Sodium 136 (136-145) mmol/L Potassium 3.6 (3.5-5.1) mmol/L Chloride 108 H (98-107) mmol/L Carbon Dioxide 24 (21-32) mmol/L Anion Gap 4 (3-11) BUN 8 (6-23) mg/dl Creatinine 0.59 L (0.6-1.2) mg/dl Est Cr Clr Drug Dosing 145.4 ml/min Est GFR ( Amer) > 150.0 ml/min Est GFR (Non-Af Amer) 130.1 ml/min BUN/Creatinine Ratio 13.6 (10-20) Glucose 111 H (70-99(Fasting)) mg/dl Calcium 9.5 (8.6-10.3) mg/dl Total Bilirubin 1.6 H (0.2-1.0) mg/dl AST 22 (13-39) U/L ALT 19 (7-52) U/L Alkaline Phosphatase 52 (34-104) U/L Troponin I High Sens < 2.3 (0-14) pg/ml Total Protein 7.1 (6.0-8.3) gm/dl Albumin 4.5 (3.4-5.0) gm/dl Globulin 2.6 (2.5-4.0) gm/dl Albumin/Globulin Ratio 1.7 (0.9-2) Lipase 13 (11-82) U/L HCG, Qual (Negative) Urine Color Urine Appearance (Clear) Urine pH (4.5-7.5) Ur Specific [place] (1.000-1.030) Urine Protein (Negative) Urine Glucose (UA) (Negative) Urine Ketones (Negative) Urine Blood (Negative) Urine Nitrite (Negative) Urine Bilirubin (Negative) Urine Urobilinogen (Negative) Ur Leukocyte Esterase (Negative) Urine WBC (Auto) (0-5) /hpf Urine RBC (Auto) (0-4) /hpf U Hyaline Cast (Auto) (0-5) /lpf U Epithel Cells (Auto) (0-5) /lpf Urine Bacteria (Auto) (Negative) Urine Opiates Screen (Neg) Ur Methadone, Qual (Neg) Urine Barbiturates (Neg) Ur Phencyclidine (PCP) (Neg) U Amphetamin/Meth Scrn (Neg) MDMA (Ecstasy) Screen (Neg) U Benzodiazepines Scrn (Neg) Ur Cocaine Metabolite (Neg) U Marijuana (THC) Screen (Neg) Ethyl Alcohol mg/dL < 10.0 (<10.0) mg/dl Supervising Physician Co-Signing Physician Notes I personally examined the patient and verified all knox points of history and exam, discussed case, and agree with decision making with Shivam JOSE Pain under better control now. Wonders if she had more aggressive pain control in the ER initially if she would have even needed to be admitted. Has had urinary urgency basically for about a week, maybe a little bit of dysuria off and on. Notes she probably drinks about a liter of fluid a day Vitals noted, in general she is awake and alert pleasant no distress. HEENT normocephalic atraumatic mucous membranes moist. Breathing unlabored no accessory muscle use good effort. Skin shows no rashes no pallor or icterus. Neuro without focal deficits. Sickle cell acute pain crisisfortunately does not appear to be as severe as prior crises. Continue IV fluids and aggressive pain control. Likely precipitated by urinary tract infection and dehydration UTIceftriaxone DehydrationIV fluids, discussed that she probably needs to be more brisk with her oral fluid supplementation at home. (More in the neighborhood of 2.5-3 L likely) PG Care Time/CCT Total # of Minutes Spent Total Time Spent with Patient: Total time spent is greater than 50% in coordination of care (as documented) at patient's floor/unit and/or counseling patient: Coding Level of Care Code 76688 INT INP/OBS CARE 3/75MIN Diagnoses Sickle-cell disease with pain D57.00 Dehydration E86.0 Leukocytosis D72.829 Anxiety F41.9 Seasonal allergies J30.2
[2023-05-25] MEDS ORDERED: HYDROmorphone INJ 1 MG/ML SYRINGE IV PRN ×3 (08:22→08:43)
[2023-05-25] MEDS ORDERED: LACTATED RINGER'S 500 ML IV ONE (08:31)
--- NOTE | 2023-05-25 08:42 | XRay Report ---
XR chest 1V portable HISTORY: 23 years-old Female back pain, sickle cell disease acute back pain COMPARISON: 11/25/2022 TECHNIQUE: AP view of the chest FINDINGS: Cardiomediastinal and hilar silhouettes are within normal limits. No pneumothorax, pleural effusion, airspace consolidation or pulmonary edema. Probable H shaped vertebral bodies again noted compatible with the patient's history of sickle cell disease. No acute fracture identified. IMPRESSION: No acute process of the chest. ACT 112: Negative or not required by law. The above report was generated using voice recognition software. It may contain grammatical, syntax o r spelling errors. Electronically signed by: Shiva Francois M.D. 05/25/2023 8:41 AM
[2023-05-25] MEDS ORDERED: LACTATED RINGER'S 1,000 ML IV SCH ×2 (08:45→12:33)
[2023-05-25 09:08] LABS: Creatine Kinase 61 U/L (26-192)
[2023-05-25] MEDS ORDERED: HYDROmorphone INJ 1 MG/ML SYRINGE IV STA (09:25)
[2023-05-25 10:46] LABS: Adenovirus PCR Not Detected (NotDetected); Bordetella parapertussis PCR Not Detected (NotDetected); Bordetella pertussis PCR Not Detected (NotDetected); Chlamydia pneumoniae PCR Not Detected (NotDetected); Coronavirus 229E PCR Not Detected (NotDetected); Coronavirus CoV-2 (COVID19)PCR Not Detected (NotDetected); Coronavirus HKU1 PCR Not Detected (NotDetected); Coronavirus NL63 PCR Not Detected (NotDetected); Coronavirus OC43PCR Not Detected (NotDetected); Human Metapneumovirus PCR Not Detected (NotDetected); Influenza A PCR Not Detected (NotDetected); Influenza B PCR Not Detected (NotDetected); Mycoplasma pneumoniae PCR Not Detected (NotDetected); Parainfluenza Virus 1 PCR Not Detected (NotDetected); Parainfluenza Virus 2 PCR Not Detected (NotDetected); Parainfluenza Virus 3 PCR Not Detected (NotDetected); Parainfluenza Virus 4 PCR Not Detected (NotDetected); Respiratory Syncytial VirusPCR Not Detected (NotDetected); Rhinovirus/Enterovirus PCR Not Detected (NotDetected)
[2023-05-25 10:47] LABS: C Reactive Protein < 0.50 mg/dl (0-0.5)
--- NOTE | 2023-05-25 10:49 | Ultrasound Report ---
RENAL ULTRASOUND HISTORY: low back pain, hx pyelo, decreased urine output COMPARISON: Renal ultrasound 11/14/2022. FINDINGS: Right kidney: 11.1 cm. No hydronephrosis. Questionable increased cortical echogenicity may be technic al. Left kidney: 10.4 cm. No hydronephrosis. Normal corticomedullary differentiation and cortical thickne ss. Bladder: No bladder wall thickening. The bilateral ureteral jets were identified. IMPRESSION: 1. Questionable increased cortical echogenicity within the right kidney which may be technical. 2. No hydronephrosis. 3. Normal bladder. ACT 112: Negative or not required by law. Electronically signed by: Vitor Waite M.D. 05/25/2023 10:47 AM
[2023-05-25] MEDS ORDERED: oxyCODONE HCL IR 5 MG TAB (IMMEDIATE RELEASE) PO PRN (12:33)
[2023-05-25] MEDS ORDERED: CETIRIZINE HCL 10 MG TABLET PO PRN (12:33)
[2023-05-25] MEDS ORDERED: ACETAMINOPHEN 1,000 MG/100 ML VIAL IV PRN (12:33)
[2023-05-25] MEDS ORDERED: ONDANSETRON INJ 2 MG/ML 2 ML VIAL IV PRN (12:33)
--- NOTE | 2023-05-25 12:34 | Electrocardiogram Report ---
Test Reason : Blood Pressure : / mmHG Vent. Rate : 091 BPM Atrial Rate : 091 BPM P-R Int : 178 ms QRS Dur : 088 ms QT Int : 372 ms P-R-T Axes : 067 067 047 degrees QTc Int : 457 ms Normal sinus rhythm Normal ECG When compared with ECG of 14-NOV-2022 06:14, Criteria for Septal infarct are no longer Present Confirmed by Porfirio Canales ([id number]) on 05/25/2023 12:33:57 PM Referred By: REFERRED SELF Confirmed By:Porfirio Canales
[2023-05-25] MEDS ORDERED: FLUTICASONE/VILANTEROL 100/25MCG 14 PUFFS/INHALER INH PRN (12:44)
[2023-05-25] MEDS: HYDROmorphone INJ 1 MG/ML SYRINGE IV PRN ×2 (13:26→20:56)
[2023-05-25] MEDS ORDERED: INFLUENZA VIRUS QUADRIVALENT VACCINE (IIV4) 0.5 ML SYR IM ONE (14:21)
[2023-05-25] MEDS ORDERED: ENOXAPARIN INJ 40 MG/0.4 ML SYR SQ SCH (16:00)
[2023-05-25] MEDS: SODIUM CHLOR 0.45% + 20MEQ KCL 20 MEQ/1,000 ML BAG IV SCH (19:15)
[2023-05-25] MEDS ORDERED: cefTRIAXone SODIUM 2,000 MG in DEXTROSE 5% 50 ML IV SCH (19:15)
[2023-05-26] MEDS: SODIUM CHLOR 0.45% + 20MEQ KCL 20 MEQ/1,000 ML BAG IV SCH ×2 (03:15→12:01)
[2023-05-26] MEDS: HYDROmorphone INJ 1 MG/ML SYRINGE IV PRN ×3 (03:47→11:32)
[2023-05-26 07:57] LABS: Basophils % (auto) 0.7 %; Eosinophils % (auto) 2.6 %; Hemoglobin 9.7 g/dl (12.0-16.0); Immature Granulocytes # (auto) 0.04 K/uL (0.01-0.20); Immature Granulocytes % (auto) 0.3 %; Lymphocytes # (auto) 2.29 K/uL (1.20-3.40); Lymphocytes % (auto) 15.1 %; Mean Corpuscular Hemoglobin 30.6 pg (25.0-34.0); Mean Corpuscular Hgb Conc 37.3 g/dL (32.0-36.0); Mean Platelet Volume 9.5 fL (9.4-12.4); Monocytes # (auto) 1.26 K/uL (0.11-0.59); Monocytes % (auto) 8.3 %; Neutrophils # (auto) 11.08 K/uL (1.40-6.50); Nucleated RBC # (auto) 0.08 K/uL (0.00-0.12); Nucleated RBC % (auto) 0.5 %; Platelet Count 299 K/uL (130-400); RDW Coefficient of Variation 13.8 % (11.5-14.5); RDW Standard Deviation 40.6 fL (36.4-46.3); Red Blood Count 3.17 M/uL (4.20-5.40); White Blood Count 15.17 K/ul (4.8-10.8)
[2023-05-26 08:15] LABS: Alanine Aminotransferase 13 U/L (7-52); Albumin Globulin Ratio 1.6 (0.9-2); Albumin Level 3.7 gm/dl (3.4-5.0); Alkaline Phosphatase 40 U/L (34-104); Anion Gap 4 (3-11); Aspartate Aminotransferase 17 U/L (13-39); BUN Creatinine Ratio 10.9 (10-20); Bilirubin,Total 1.1 mg/dl (0.2-1.0); Blood Urea Nitrogen 6 mg/dl (6-23); Calcium 8.6 mg/dl (8.6-10.3); Carbon Dioxide 25 mmol/L (21-32); Chloride 108 mmol/L (98-107); Est GFR (African American) > 150.0 ml/min; Est GFR (Non-African American) 133.1 ml/min; Globulin 2.3 gm/dl (2.5-4.0); Glucose 92 mg/dl (70-99(Fasting)); Magnesium 1.6 mg/dl (1.7-2.4); Sodium 137 mmol/L (136-145)
[2023-05-26] MEDS ORDERED: HYDROmorphone HCL 2 MG TAB PO STA (12:12)
[2023-05-26] MEDS ORDERED: cefTRIAXone SODIUM 2,000 MG in DEXTROSE 5 % MINI-B 50 ML IV STA (12:12)
--- NOTE | 2023-05-26 18:43 | Discharge Summary ---
Date of Service May 26, 2023 Admission HPI Per Admitting Provider 23yo female with PMHx significant for sickle cell disease, followed by Dr. Gallegos at [facility], presented with back/leg pain that feels similar to previous sickle cell exacerbations. Appears patient was admitted 04/22-04/23 for similar complaints felt related to her sickle cell disease and was provided IV hydration, IV pain medication and antiemetics and discharged on oral oxycodone. 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 Utilizing NSAIDs/tylenol at home. SHe reports that she had been feeling weak for about a week but couldn't miss the wedding. Has been having a change in her urinary stream/decreased frequency and darkened in color. She reports pain down her legs to level of knee, no increased swelling/calf tenderness. She reports she was given dilaudid 0.5mg but her usual scale is 1-2mg as needed. WIll order dose 1mg X1 now, schedule q2h and discussed can adjust as needed. 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 No nausea or significant abdominal pain. Reports appetite has been ok, no vomiting. Denies recent fevers/chills, but reports feeling ill over the past week. No hx DVT/PE, no pleuritic chest pain reported. Of note, she is frustrated with some staff/how they treat her with regards to pain control as well as her brother in the area with the same issues and frustrations about stigma to provide adequate pain relief. ER Course: WBC 11.3k, hgb 11, plt 344. Chemistries with Na 136, K 3.6, BUN/Cr 8/0.59. Trop 2.3 on high sensitivity testing GIven 1L NSS, lorazepam 0.5mg IV x 1, tylenol 1gm IV, toradol 40mg IV, diladudid 0.5mg 99% on RA Will check CXR given hx sickle cell, also check CTAP given UA +blood/protein, leuk esterase/+WBC on UA and complaints of back/leg pain with hx of pyelo and reported back/leg pain. Also noting on prior MRCP w/ GB wall thickening in past, TB 1.6 but ALP wnl Urine cx pending at present, blood cultures/procal to be drawn. Principal Diagnosis Sickle cell with acute pain crisis, dehydration, possible urinary tract infection Discharge Exam In general she is awake and alert pleasant no distress. HEENT normocephalic atraumatic mucous membranes moist. Breathing unlabored no accessory muscle use good effort. Skin shows no rashes no pallor or icterus. Neuro without focal deficits Discharge Data Allergies Allergy/AdvReac Type Severity Reaction Status Date / Time peanut Allergy Intermediate ITCHY HIVES Verified 12/14/22 01:27 Consultations 05/25/23 06:48 ED Decision to Admit Stat Ordered Studies 05/25/23 08:37 US Renal Bladder [US renal/blad retro comp] Urgent Hospital Course (1) Sickle-cell disease with pain: Pain much improved. Whenever I saw her she was thinking she was probably able to go home, as we discussed pain, initially she was very confident she would do okay, but then whenever really thinking about it she was a little less confident, we discussed giving a trial to p.o. pain meds while still in the hospital and then being double decide from thereto that end I gave her a stat 2 mg p.o. Dilaudid dose, which she tolerated well and shortly thereafter I was messaged by nursing that the patient felt like she would do okay at home. To th at end able to get her home. (2) Dehydration: recent travel/dehydration Additionally, she notes she probably only drinks about a liter a day Rehydrated with IV fluids, encouraged to increase her p.o. fluid intake to more like 2.5-3 L daily, stable for home (3) Leukocytosis: suspect reactive, has some dysuria which makes me suspicious of UTI, but c ertainly nothing consistent with sepsis In regards to her dysuria/possible UTIgiven that she has symptoms, while her urine culture grew skin bacteria, definitely treating empirically as though infection given her risk and circumstancesdysuria improved with ceftriaxonesending home to finish out a course of cefdinir. It is also certainly possible that her dysuria was from concentrated urine from dehydration, but given that it was not a markedly elevated specific gravity, I am more suspicious it was a mild urinary tract infection (4) Anxiety: Expressed stress about delay in management of sickle cell pain crises for both her and her brother in the ER. Offered empathy and support, updated ER physician director with her concerns. (5) Seasonal allergies: continue zyrtec prn, Symbicort BID prn Total Time Total Time Spent Total Time Spent (In Minutes): <30 Discharge Plan Discharge Items Patient Disposition: Home - Self-Care Reason For Visit: SICKLE CELL, LOW BACK PAIN, DEHYDRATION Discharge Diagnosis: sickle cell acute pain crisis, dehydration, UTI Activity: Resume your previous activity Non-emergency contact: Primary Care Provider and Specialist Call non-emergency contact if: you have any medication questions, your symptoms worsen and you have a fever Follow-up/Referrals: [facility] [Primary Care Provider] - Diet: Regular Addtl Attending Provider Instructions: a) pain - use the dilauded (hydromorphone) up to every four hours as needed for pain; hopefully over the next few days to a week you'll be able to get down to not needing it at all - especially since this crisis appears to have gotten better way faster than your prior ones (as we discussed, i think that is probably because your sickle cell is under overall better control with the new treatment) b) hydration - it can be annoying to keep up with, but i do see dehydration as a common trigger for a sickle cell pain crisis. try to target more in the range of 2.5-3 liters a day (keep track, it's easy to guess you've drank enough - but most of the time when we really analyze it when people are guessing, they often are only getting ~50-75% to goal) c) UTI - you've started to get better already on the ceftriaxone (rocephin) - so we'll finish out a course of treatment with cefdinir. since the ceftriaxone lasts 24hrs, you won't need to start the cefdinir until tomorrow it was really good to see you bounce back quickly this time!! i hope the new treatments continue to make you feel less and less "like a patient" and more and more "like a human being!" Pending Studies at Discharge: No Stand-Alone Forms: [employer] Smoking Cessation Medications and DC Order Prescriptions: New hydromorphone 2 mg tablet 2 mg PO Q4H PRN (Reason: pain) Qty: 20 0RF cefdinir 300 mg capsule 300 mg PO BID 5 Days Qty: 10 0RF Continued cetirizine 10 mg tablet 10 mg PO HS PRN (Reason: Congestion) acetaminophen 325 mg tablet 650 mg PO DIRECTED PRN (Reason: Pain) budesonide-formoterol [Symbicort] 80-4.5 mcg/actuation Hfa Aerosol Inhaler 2 puff INHALATION BID PRN (Reason: Shortness Of Breath Or Wheezing) Adakveo 10 mg/mL Solution See Rx Instructions .ROUTE .COMPLEX Rx Instructions: infusion monthly per pt folic acid 1 mg tablet 1 mg PO DAILY Discontinued oxycodone 5 mg tablet 10 mg PO Q8H PRN (Reason: pain) Qty: 20 0RF Discharge Orders: Discharge Order (Routine); Ordered 05/26/23 Ordered By: Owen Huber/Other Patient Handouts: Taking Opioid Medicine, ED Sickle Cell Pain Crisis Admission Data Admit Date/Time: 05/25/23 08:48 Attending Provider: Patrick Robin Admit Provider: Patrick Robin Primary Care Provider: [facility] Other Providers: Steven Rodgers ; Serena Cardenas ; Tony Guo ; Micheal Hodges ; Kentrell Negron ; Patrick Robin ; Lakhwinder Julian ; Brittni Young ; Lucero Still ; Kolby Carvajal ; Madiha Rodriguez ; Derek Hagen ; Kay Greenwood ; Josh Irizarry ; Severo Ellington ; Serena Oates ; Nicci Russell ; Jacky Neal ; Tony Barker ; Vitor Solis ; Miriam Monroy ; Norma Oseguera ; Elier Pineda ; Cheryl Vital ; William Ford ; Andrew Wright ; Bonnie Winters ; Gray Haynes ; Alana Rodrigez ; Harinder Lima ; Micheal Duff ; Kentrell Tovar Other Interventions: Discharge Summary Assessment (RN) Last Done: 05/26/23 14:32 Coding Level of Care Code 30693 IN/OBS DISCH 30 MIN/LESS Diagnoses Sickle-cell disease with pain D57.00 Dehydration E86.0 Leukocytosis D72.829 Anxiety F41.9 Seasonal allergies J30.2
[2023-05-27] MEDS ORDERED: cefTRIAXone SODIUM 2,000 MG in DEXTROSE 5 % MINI-B 50 ML IV SCH (20:00)
== END 2023-05-26 16:03 | disposition home or self-care (01) ==
LOC: ED 04:35 → EDINP 08:48 → INTOOBSV 08:48 → 3N 12:33

== ENCOUNTER 2023-06-17 08:38 | Observation (INO) ==
[2023-06-17] MEDS ORDERED: KETOROLAC 30 MG/ML VIAL IV STA (09:19)
[2023-06-17] MEDS ORDERED: HYDROmorphone INJ 1 MG/ML SYRINGE IV STA ×2 (09:19→12:25)
[2023-06-17] MEDS ORDERED: ONDANSETRON INJ 2 MG/ML 2 ML VIAL IV STA (09:19)
--- NOTE | 2023-06-17 09:24 | Emergency Department Note ---
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 Patient does get monthly infusions however has not been able to get that over the last 2 months due to scheduling issues in school. Worsening sickle pain over the last few days. Complaining primarily of back and leg pains. She is having no shortness of breath, chest pain, fevers and no evidence of acute chest crisis at this time. Vital signs are essentially unremarkable. Laboratory work-up is relatively reassuring with the reticulocyte of 3.5% which is down from her baseline. Patient was given multiple rounds of IV Dilaudid along with IV fluids. Unfortunately pain continues to make it impossible to discharge her at this point. I think in her best interest and to keep her pain under control would be to hospitalize her which she is eventually agreeable to after several hours of monitoring/observation in the ER. Triage/Nursing Notes reviewed by Me External Chart Review by me: Multiple reviews of external chart including previous hospitalization records and discharge summaries. Differential:Sickle cell crisis, anemia, chest crisis, sepsis, electrolyte imbalance, renal failure, dehydration, many other pathologies considered Vital Signs: reviewed and remarkable for no significant abnormalities Interventions: Normal saline bolus 1 L IV x2, Dilaudid 1 mg IV x3, Toradol 30 mg IV, Labs:ED labs Reviewed by me and remarkable for reticulocyte 3.5%, otherwise no significant abnormalities Cardiac/Tele Monitoring: Cardiac Monitoring: An Order was placed for continuous cardiac monitoring. The monitor shows a rate of 70 with a normal sinus rhythm. Consults:Discussed with Dr. Yadav of the hematology service who agreed with plan for continued hydration and pain control with narcotics Plan: Disposition:Hospitalization. Condition: Good History of Present Illness: 23-year-old female arrives for evaluation of pain. Patient with a history of sickle cell disease and frequent crises. She notes due to the cold weather pain has been gradually worsening over the last week. Last 48 hours though she has been in significant discomfort. Pain is primarily throughout her back and down into her legs. Notes her joints are hurting as well but no swelling. Patient has been using her home Dilaudid and Tylenol without any improvement. States due to worsening pain she comes in hoping to get relief. Denies any fevers, chills, chest pain, shortness of breath, syncope, palpitations, headache, neck pain, neurologic deficits, abdominal pain or other concerning signs or symptoms. She does note though that due to her pain she is really been unable to eat anything for the last 2 days. Past Medical History:Sickle cell disease, seasonal allergies, asthma Home Medications:See Below Allergies:Peanuts and tropical fruit Vitals:Blood Pressure: 110/60, Pulse 89, RR 18, T 36.7C, O2 100% on RA Physical Exam: GENERAL: Patient is uncomfortable appearing and in moderate distress. RESPIRATORY: No dyspnea. Clear to auscultation and equal bilaterally. CARDIOVASCULAR: Regular rate and rhythm.No murmur appreciated. GASTROINTESTINAL: Abdomen soft, non-tender, no peritonitis. BACK: No midline tenderness, no CVA tenderness EXTREMITIES: Normal motion all extremities, no cyanosis, no edema. NEUROLOGIC: Alert and oriented. No focal neurologic deficits appreciated SKIN: No rash, no jaundice, no diaphoresis. PSYCH: Appropriate GCS: 15 ED Course: Times/Reassessments: Multiple repeat evaluations of patient throughout her stay. Waxing and waning pain during her stay though never improved enough that patient felt comfortable for discharge. Observation note: Indication: Monitoring sickle cell patient for pain control Placed in Observation: 10 AM on June 17, 2023. Observation was necessary in order to further monitor patient for pain control and to adequately assess whether she is safe for discharge. History as above in HPI. Discharged from observation to hospitalization at 1 PM on June 17, 2023. Total Observation Time: 3 hours. Cuba Nunez MD Past Med/Surg History Medical History Abnormal LFTs Anxiety Asthma Back pain Constipation COVID-19 Influenza A Leukocytosis Parainfluenza Pneumonia Pyelonephritis Seasonal allergies Sepsis Sepsis Sickle cell anemia Sickle cell anemia with crisis Sickle cell crisis Sickle cell crisis Splenomegaly Transaminitis Vaginal ulceration Surgical History No pertinent past surgical history Family History Brother Sickle cell anemia Social History Smoking Status: Never smoker Second Hand Exposure: No; Do You Dip or Chew Tobacco: No; Hx Alcohol Use: Yes Alcohol type: wine and hard liquor Alcohol Intake Frequency: Monthly or Less Alcohol Intake Frequency Comment: 1 drink Hx Substance Use: No Preferred Language: [place]ese Communication Ability: Effective Crossword Puzzle Maker Required: No Beliefs That Will Affect Care: [employer] marital status: Single Current Living Situation: Other Current Living Situation Comment: [place] Feels Safe at Home: Yes Assistive Devices: None Allergies Allergies Allergy/AdvReac Type Severity Reaction Status Date / Time peanut Allergy Intermediate ITCHY HIVES Verified 06/17/23 11:13 Home Meds Home Medications Medication Instructions Recorded Confirmed cetirizine 10 mg tablet 10 mg PO HS PRN Congestion 04/18/20 06/17/23 acetaminophen 325 mg tablet 650 mg PO DIRECTED PRN Pain 12/13/21 06/17/23 crizanlizumab-tmca 10 mg/mL See Rx Instructions .Route .COMPLEX 06/30/22 06/17/23 intravenous solution (Adakveo) budesonide-formoterol HFA 80 2 puff inhalation BID PRN 12/14/22 06/17/23 mcg-4.5 mcg/actuation aerosol Shortness Of Breath Or Wheezing inhaler (Symbicort) folic acid 1 mg tablet 1 mg PO DAILY 05/25/23 06/17/23 Previous Rx's Medication Instructions Recorded hydromorphone 2 mg tablet 2 mg PO Q4H PRN pain #20 tabs 05/26/23 Results & Data (ED) Vital Signs Vital Signs - 24 hr 06/17/23 08:55 06/17/23 09:42 06/17/23 10:39 Temperature 36.7 C Temperature Source Temporal Artery Scan Pulse Rate 89 79 Pulse Rate [Right Finger] 78 Respiratory Rate 18 18 Respiratory Effort / Characteristics Non-Labored Spontaneous Respiratory Depth Normal Respiratory Pattern Regular Blood Pressure 110/60 Blood Pressure [Left Arm] 109/67 Blood Pressure Mean 76 Blood Pressure Mean [Left Arm] 81 Pulse Oximetry 100 100 Oxygen Delivery Method Room Air Room Air Sepsis Recent Fever Within 48 Hours No Sepsis New/Unexplained Change in Mental Status No Sepsis Action Taken by Nursing No Action Required 06/17/23 12:36 Temperature Temperature Source Pulse Rate Pulse Rate [Right Finger] 74 Respiratory Rate 18 Respiratory Effort / Characteristics Respiratory Depth Respiratory Pattern Blood Pressure Blood Pressure [Left Arm] 116/67 Blood Pressure Mean Blood Pressure Mean [Left Arm] 83 Pulse Oximetry 100 Oxygen Delivery Method Room Air Sepsis Recent Fever Within 48 Hours Sepsis New/Unexplained Change in Mental Status Sepsis Action Taken by Nursing Laboratory Data 06/17/23 09:40 06/17/23 11:11 Lab Results 06/17/23 06/17/23 06/17/23 Range/Units 09:40 09:40 11:11 WBC 6.54 (4.8-10.8) K/ul RBC 3.74 L (4.20-5.40) M/uL Hgb 11.3 L (12.0-16.0) g/dl Hct 30.8 L (37.0-47.0) % MCV 82.4 (80.0-100.0) fL MCH 30.2 (25.0-34.0) pg MCHC 36.7 H (32.0-36.0) g/dL RDW Std Deviation 41.0 (36.4-46.3) fL RDW Coeff of Kashif 13.9 (11.5-14.5) % Plt Count 345 (130-400) K/uL MPV 9.9 (9.4-12.4) fL Immature Gran % (Auto) 0.3 % Neut % (Auto) 60.1 % Lymph % (Auto) 21.7 % [place] % (Auto) 13.5 % Eos % (Auto) 2.9 % Baso % (Auto) 1.5 % Reticulocyte % (Auto) 3.8 H (0.5-2.0) % Neut # (Auto) 3.93 (1.40-6.50) K/uL Lymph # (Auto) 1.42 (1.20-3.40) K/uL [place] # (Auto) 0.88 H (0.11-0.59) K/uL Eos # (Auto) 0.19 (0.00-0.50) K/uL Baso # (Auto) 0.10 (0.00-0.20) K/uL Reticulocyte # 0.14 H (0.02-0.10) 10^6/uL Immature Gran # (Auto) 0.02 (0.01-0.20) K/uL Absolute Nucleated RBC 0.05 (0.00-0.12) K/uL Nucleated RBC % (auto) 0.8 % Sodium 137 (136-145) mmol/L Potassium TNP 3.9 Chloride 108 H (98-107) mmol/L Carbon Dioxide 23 (21-32) mmol/L Anion Gap 6 (3-11) BUN 8 (6-23) mg/dl Creatinine 0.68 (0.6-1.2) mg/dl Est Cr Clr Drug Dosing 130.9 ml/min Est GFR ( Amer) 143.9 ml/min Est GFR (Non-Af Amer) 124.2 ml/min BUN/Creatinine Ratio 11.8 (10-20) Glucose 90 (70-99(Fasting)) mg/dl Calcium 9.3 (8.6-10.3) mg/dl Total Bilirubin 1.9 H (0.2-1.0) mg/dl Direct Bilirubin TNP 0.1 AST TNP 19 ALT 12 (7-52) U/L Alkaline Phosphatase 48 (34-104) U/L Total Creatine Kinase 52 (26-192) U/L Total Protein 7.6 (6.0-8.3) gm/dl Albumin 4.6 (3.4-5.0) gm/dl Lipase 10 L (11-82) U/L Administered Medications Enoxaparin Sodium (Enoxaparin Inj 40 Mg/0.4 Ml Syr) 40 mg SQ Q24H [facility] Stop: 07/17/23 15:59 Last Admin: 06/17/23 16:21 Dose: Not Given Documented By: ALEXANDRA Hydromorphone HCl (Hydromorphone Inj 1 Mg/Ml Syringe) 1 mg IV Q3H PRN PRN Reason: Pain (5+) Stop: 07/01/23 13:32 Last Admin: 06/17/23 16:06 Dose: 1 mg Documented By: ALEXANDRA Lactated Ringer's (Lr) 1,000 mls @ 100 mls/hr IV .Q10H ROBYN Stop: 06/17/23 23:44 Last Admin: 06/17/23 16:21 Dose: 100 mls/hr Documented By: BENITA Discontinued Medications Hydromorphone HCl (Hydromorphone Inj 1 Mg/Ml Syringe) 1 mg IV NOW STA Stop: 06/17/23 09:20 Last Admin: 06/17/23 09:41 Dose: 1 mg Documented By: TAHIRA Hydromorphone HCl (Hydromorphone Inj 1 Mg/Ml Syringe) 1 mg IV Q15M PRN PRN Reason: Pain Stop: 07/01/23 10:50 Last Admin: 06/17/23 11:05 Dose: 1 mg Documented By: TAHIRA Hydromorphone HCl (Hydromorphone Inj 1 Mg/Ml Syringe) 1 mg IV NOW STA Stop: 06/17/23 12:26 Last Admin: 06/17/23 12:35 Dose: 1 mg Documented By: TAHIRA Sodium Chloride (Nss) 500 mls @ 999 mls/hr IV .Q31M ONE Stop: 06/17/23 11:21 Last Infusion: 06/17/23 11:41 Dose: 0 mls/hr Documented By: Admin: 06/17/23 11:10 Dose: 999 mls/hr Documented By: TAHIRA Sodium Chloride (Nss) 1,000 mls @ 999 mls/hr IV .Q1H1M ONE Stop: 06/17/23 14:04 Last Infusion: 06/17/23 16:15 Dose: 0 mls/hr Documented By: Admin: 06/17/23 14:09 Dose: 999 mls/hr Documented By: KISHOR Ketorolac Tromethamine (Ketorolac 30 Mg/Ml Vial) 30 mg IV NOW STA Stop: 06/17/23 09:20 Last Admin: 06/17/23 09:41 Dose: 30 mg Documented By: TAHIRA Ondansetron HCl (Ondansetron Inj 2 Mg/Ml 2 Ml Vial) 4 mg IV NOW STA Stop: 06/17/23 09:20 Last Admin: 06/17/23 09:41 Dose: 4 mg Documented By: TAHIRA Discharge Plan Visit Data Chief Complaint: Illness Stated Complaint: SICKLE CELL ED Provider: Cuba Nunez Discharge Problem: Sickle cell disease with crisis, Sickle-cell disease with pain Patient Disposition: Admitted As Inpatient Discharge Instructions Interventions: ED Discharge Assessment Last Done: 06/17/23 15:45
[2023-06-17 10:09] LABS: Basophils % (auto) 1.5 %; Eosinophils # (auto) 0.19 K/uL (0.00-0.50); Eosinophils % (auto) 2.9 %; Hematocrit (blood only) 30.8 % (37.0-47.0); Hemoglobin 11.3 g/dl (12.0-16.0); Immature Granulocytes # (auto) 0.02 K/uL (0.01-0.20); Immature Granulocytes % (auto) 0.3 %; Lymphocytes # (auto) 1.42 K/uL (1.20-3.40); Lymphocytes % (auto) 21.7 %; Mean Corpuscular Hemoglobin 30.2 pg (25.0-34.0); Mean Corpuscular Hgb Conc 36.7 g/dL (32.0-36.0); Mean Corpuscular Volume 82.4 fL (80.0-100.0); Mean Platelet Volume 9.9 fL (9.4-12.4); Monocytes # (auto) 0.88 K/uL (0.11-0.59); Monocytes % (auto) 13.5 %; Neutrophils # (auto) 3.93 K/uL (1.40-6.50); Neutrophils % (auto) 60.1 %; Nucleated RBC # (auto) 0.05 K/uL (0.00-0.12); Nucleated RBC % (auto) 0.8 %; Platelet Count 345 K/uL (130-400); RDW Coefficient of Variation 13.9 % (11.5-14.5); Red Blood Count 3.74 M/uL (4.20-5.40); Reticulocyte % 3.8 % (0.5-2.0); Reticulocytes # 0.14 10^6/uL (0.02-0.10); White Blood Count 6.54 K/ul (4.8-10.8)
[2023-06-17 10:49] LABS: Alanine Aminotransferase 12 U/L (7-52); Albumin Level 4.6 gm/dl (3.4-5.0); Alkaline Phosphatase 48 U/L (34-104); Anion Gap 6 (3-11); BUN Creatinine Ratio 11.8 (10-20); Bilirubin,Total 1.9 mg/dl (0.2-1.0); Blood Urea Nitrogen 8 mg/dl (6-23); Calcium 9.3 mg/dl (8.6-10.3); Carbon Dioxide 23 mmol/L (21-32); Chloride 108 mmol/L (98-107); Creatine Kinase 52 U/L (26-192); Creatinine Clr Calc Pharmacy 130.9 ml/min; Est GFR (African American) 143.9 ml/min; Est GFR (Non-African American) 124.2 ml/min; Glucose 90 mg/dl (70-99(Fasting)); Lipase 10 U/L (11-82); Sodium 137 mmol/L (136-145); Total Protein 7.6 gm/dl (6.0-8.3)
[2023-06-17] MEDS ORDERED: HYDROmorphone INJ 1 MG/ML SYRINGE IV PRN (10:51)
[2023-06-17] MEDS ORDERED: SODIUM CHLORIDE 0.9% 500 ML IV ONE (10:51)
[2023-06-17 11:51] LABS: Bilirubin Direct 0.1 mg/dl (0-0.2); Potassium 3.9 mmol/L (3.5-5.1)
[2023-06-17] MEDS ORDERED: SODIUM CHLORIDE 0.9% 1,000 ML IV ONE (13:04)
--- NOTE | 2023-06-17 13:21 | History & Physical Report ---
Date of Service June 17, 2023 Assessment & Plan (1) Sickle-cell disease with pain: Plan: -Admit to med/tele -Currently stable with improving symptoms, not yet completely resolved or able to be managed with typical PO pain medications -Has been feeling generally weak with poor appetite over the past 48 hours, notse mild congestion but otherwise is asymptomatic -Will continue with prn tylenol for mild pain and 1mg IV dilaudid q3h prn pain (5+) -Will order prn warm compresses for her focal areas of discomfort -Wean to home PO regimen as able -Will obtain chest xray and ECG for further evaluation -S/P 2L NSS in the ED, will give LR at 100 mL/hr x 1 bag for additional hydration -Will obtain full respiratory biofire to rule out possible viral infection causing increased pain -SQ Lovenox for DVT PPX -Regular diet -AM CBC, CMP, Mag, PT/INR (2) Generalized weakness: Plan: -Likely multifactorial including poor sleep/appetite due to increased pain, fatigue from increased sickle cell pain, and possible viral infection -No leukocytosis, symptoms, or phsical exam findings to suggest bacterial infection at this time -Continue symptomatic care for now -Follow full respiratory biofire (3) Dehydration: Plan: -Continue light IV hydration until she is eating/drinking consistently (4) Asthma: Plan: -Stable on RA -Lungs are clear on exam -Continue Symbicort -Incentive spirometry (5) Hyperbilirubinemia: Plan: -Total bili elevated at 1.9 -She is without abdominal discomfort or changes in bowel habits -Likely due to dehydration and sickle cell crisis/pain -Has been higher on previous admissions -Continue IV hydration, monitor am CMP Plan The patient was discussed with Dr. Barker at the time of the admission History of Present Illness Chief Complaint: Uncontrolled Sickle Cell pain Primary Care Provider: [facility] Kaylan is a 23 year old female PMHx significant for sickle cell disease (on Monthly Adakveo infusions), followed by Dr. Gallegos at [facility], presented to the [facility] ED on 06/17 with back/leg pain that feels similar to previous sickle cell exacerbations. She remained stable in the ED. Labs were significant for a stable Hgb of 11.3), INR of 1.9 with direct bili and other LFT's WNL. The patient was given 3 doses of 1 mg IV Dilaudid, 30 mg IV toradol, and 1L NSS without relief of her pain but with some improvement. Prior to admission the patient was ordered another 1L NSS. At the time of the exam the patient was sitting in bed in no acute distress, she appears fatigued during my exam. She states that she has been experiencing increased generalized weakness/fatigue, congestion, and increased pain over the past 72 hours. She states that her pain is in her back and LE's where her typical sickle cell pain is located, but it was not controlled on her normal regimen of 2mg PO dilaudid and and tylenol. She denies recent fever, productive cough, chest pain, SOB, abd pain, nausea, vomiting, diarrhea, dysuria, hematuria, melena, LE swelling, and recent trauma. She confirms that her pain is improving with the IV Dilaudid but not enough to go home at this time. She feels as thought she should hopefully be ready to go home tomorrow. She has not been eating or drinking well over the past 48 hours due to her symptoms. Please refer to Dr. Barker's attestation for any changes to the treatment plan Allergies Allergy/AdvReac Type Severity Reaction Status Date / Time peanut Allergy Intermediate ITCHY HIVES Verified 06/17/23 11:13 Home Medications Medication Instructions Recorded Confirmed Type cetirizine 10 mg tablet 10 mg PO HS PRN Congestion 04/18/20 06/17/23 History acetaminophen 325 mg tablet 650 mg PO DIRECTED PRN Pain 12/13/21 06/17/23 History crizanlizumab-tmca 10 mg/mL See Rx Instructions .Route .COMPLEX 06/30/22 06/17/23 History intravenous solution (Adakveo) budesonide-formoterol HFA 80 2 puff inhalation BID PRN 12/14/22 06/17/23 History mcg-4.5 mcg/actuation aerosol Shortness Of Breath Or Wheezing inhaler (Symbicort) folic acid 1 mg tablet 1 mg PO DAILY 05/25/23 06/17/23 History hydromorphone 2 mg tablet 2 mg PO Q4H PRN pain #20 tabs 05/26/23 06/17/23 Rx Past Med/Surg History Medical History Abnormal LFTs Anxiety Asthma Back pain Constipation COVID-19 Influenza A Leukocytosis Parainfluenza Pneumonia Pyelonephritis Seasonal allergies Sepsis Sepsis Sickle cell anemia Sickle cell anemia with crisis Sickle cell crisis Sickle cell crisis Splenomegaly Transaminitis Vaginal ulceration Surgical History No pertinent past surgical history Family History Brother Sickle cell anemia Social History Smoking Status: Never smoker Second Hand Exposure: No; Do You Dip or Chew Tobacco: No; Hx Alcohol Use: No Hx Substance Use: No Preferred Language: Faroese Communication Ability: Effective 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 Crew 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 Required: No Beliefs That Will Affect Care: None marital status: Single Current Living Situation: Family Current Living Situation Comment: Roomates Feels Safe at Home: Yes Safety Concerns: Feels Safe At This Time Assistive Devices: Glasses Physical Exam Physical Exam: Physical Exam: General: In no acute distress, stated age, well-nourished, fatigued but non- toxic HEENT: Normocephalic, atraumatic, no scleral icterus, pupils around round, symmetrical, and reactive to light, dry mucus membranes, trachea midline, no thyromegaly Chest/Pulm: No respiratory distress, symmetrical chest expansion, clear breath sounds throughout Cardiac: RRR, no murmurs noted Abdomen: Negative for ascites and bruising, normoactive bowel sounds, soft, non-tender to palpation throughout Musculoskeletal: Symmetrical and without signs of acute trauma, upper and l ower extremities with full ROM, patient is non-tender to palpation of the cervical/thoracic/lumbar spine and without signs of acute trauma on palpating. Extremities: Radial, dorsalis pedis, and posterior tibial pulses are intact and symmetrical, no edema noted in the BL LE's Skin: Warm, dry, no rashes , lesions, or scars noted Neuro: Alert and oriented to person, place, month, year, and president, no focal defects, no tremors noted Psych: No acute distress, tired but calm and cooperative during the exam Results & Data Results & Data Vital Signs (Past 12 Hours) Vital Signs Temp Pulse Pulse Resp BP BP Pulse Ox 06/17/23 12:36 74 18 116/67 100 06/17/23 10:39 78 18 109/67 100 06/17/23 09:42 79 06/17/23 08:55 36.7 C 89 18 110/60 100 O2 Del Method 06/17/23 12:36 Room Air 06/17/23 10:39 Room Air 06/17/23 09:42 06/17/23 08:55 Room Air Laboratory Results Abnormal lab results 06/17/23 06/17/23 Range/Units 09:40 09:40 RBC 3.74 L (4.20-5.40) M/uL Hgb 11.3 L (12.0-16.0) g/dl Hct 30.8 L (37.0-47.0) % MCHC 36.7 H (32.0-36.0) g/dL Reticulocyte % (Auto) 3.8 H (0.5-2.0) % Hamblen # (Auto) 0.88 H (0.11-0.59) K/uL Reticulocyte # 0.14 H (0.02-0.10) 10^6/uL Chloride 108 H (98-107) mmol/L Total Bilirubin 1.9 H (0.2-1.0) mg/dl Lipase 10 L (11-82) U/L ECG Additional Comments: Will obtain on admission Code Status & VTE Plan Code Status Full code VTE Prophylaxis Plan VTE Prophylaxis will be ordered: Yes Supervising Physician Co-Signing Physician Notes I personally saw and examined the patient. I verified all knox points and agree with Josh Irizarry PA-C with the following exceptions and/or additions: 23 year old female presents to the ER with central back pain similar to prior sickle cell crisis. No acute chest pain. Generalized weakness and fatigue but no specific infective symptoms. Current pain severity 4/10 when seen. O/E A&Ox3, HS RRR, no murmurs, Chest CTAB, Abdo SNT, No CVA tenderness A/P Sickle cell disease with pain - Rehydrate with IV fluids overnight. Dilaudid for pain. Lovenox for VTE Prophylaxis, no shortness of breath to suggest PE and back pain is similar to prior sickle cell crisis. Currently on period explaining RBC in urine - do not suspect UTI. PG Care Time/CCT Total # of Minutes Spent Total Time Spent with Patient: Total time spent is greater than 50% in coordination of care (as documented) at patient's floor/unit and/or counseling patient: [place] [address] INT INP/OBS CARE 2MIN Patient Type Established Medical Decision Making Moderate Complexity Diagnoses Sickle-cell disease with pain D57.00 Generalized weakness R53.1 Dehydration E86.0 Asthma J45.909 Hyperbilirubinemia E80.6
[2023-06-17] MEDS ORDERED: ACETAMINOPHEN 325 MG TAB PO PRN (13:33)
[2023-06-17] MEDS ORDERED: LACTATED RINGER'S 1,000 ML IV SCH (13:45)
--- NOTE | 2023-06-17 14:28 | XRay Report ---
XR chest 1V portable CLINICAL HISTORY: sickle cell crisis/pain COMPARISON STUDY: Chest CT April 18, 2022. Chest radiograph May 25, 2023. FINDINGS: Lung volumes are normal. Lungs are clear. There is no pneumothorax or pleural effusion. Car diac size is normal. Mediastinal contours are normal. There is no evidence for pulmonary edema. IMPRESSION: No acute cardiopulmonary findings. ACT 112: Negative or not required by law. Electronically signed by: Jono Quintero M.D. 06/17/2023 2:27 PM
[2023-06-17 15:14] LABS: Adenovirus PCR Not Detected (NotDetected); Bordetella parapertussis PCR Not Detected (NotDetected); Bordetella pertussis PCR Not Detected (NotDetected); Chlamydia pneumoniae PCR Not Detected (NotDetected); Coronavirus 229E PCR Not Detected (NotDetected); Coronavirus CoV-2 (COVID19)PCR Not Detected (NotDetected); Coronavirus HKU1 PCR Not Detected (NotDetected); Coronavirus NL63 PCR Not Detected (NotDetected); Coronavirus OC43PCR Not Detected (NotDetected); Human Metapneumovirus PCR Not Detected (NotDetected); Influenza A PCR Not Detected (NotDetected); Influenza B PCR Not Detected (NotDetected); Mycoplasma pneumoniae PCR Not Detected (NotDetected); Parainfluenza Virus 1 PCR Not Detected (NotDetected); Parainfluenza Virus 2 PCR Not Detected (NotDetected); Parainfluenza Virus 3 PCR Not Detected (NotDetected); Parainfluenza Virus 4 PCR Not Detected (NotDetected); Respiratory Syncytial VirusPCR Not Detected (NotDetected); Rhinovirus/Enterovirus PCR Not Detected (NotDetected)
[2023-06-17] MEDS: HYDROmorphone INJ 1 MG/ML SYRINGE IV PRN ×2 (16:06→22:05)
[2023-06-17] MEDS: ENOXAPARIN INJ 40 MG/0.4 ML SYR SQ SCH (16:21)
[2023-06-17 16:40] LABS: Pregnancy Test, Urine Negative (Negative)
[2023-06-17 16:43] LABS: Appearance Urine Clear (Clear); Bacteria Urine Automated Negative (Negative); Bilirubin Urine Negative (Negative); Blood Urine 3+ (Negative); Color Urine Yellow; Epithelial Cell Urine Auto >30 /lpf (0-5); Glucose Urine UA Negative (Negative); Ketones Urine Trace (Negative); Leukocyte Esterase Urine Negative (Negative); Nitrite Urine Negative (Negative); Protein Urine Negative (Negative); RBC Urine Automated >30 /hpf (0-4); Specific Gravity Urine 1.013 (1.000-1.030); Urobilinogen Urine Negative (Negative); pH Urine 5.5 (4.5-7.5)
[2023-06-18] MEDS: HYDROmorphone INJ 1 MG/ML SYRINGE IV PRN ×6 (02:05→21:05)
[2023-06-18 05:21] LABS: Basophils # (auto) 0.11 K/uL (0.00-0.20); Basophils % (auto) 1.2 %; Eosinophils # (auto) 0.37 K/uL (0.00-0.50); Eosinophils % (auto) 4.1 %; Hematocrit (blood only) 25.8 % (37.0-47.0); Hemoglobin 9.5 g/dl (12.0-16.0); Immature Granulocytes # (auto) 0.01 K/uL (0.01-0.20); Immature Granulocytes % (auto) 0.1 %; Lymphocytes # (auto) 3.13 K/uL (1.20-3.40); Mean Corpuscular Hemoglobin 30.4 pg (25.0-34.0); Mean Corpuscular Hgb Conc 36.8 g/dL (32.0-36.0); Mean Corpuscular Volume 82.4 fL (80.0-100.0); Mean Platelet Volume 9.4 fL (9.4-12.4); Monocytes # (auto) 1.18 K/uL (0.11-0.59); Monocytes % (auto) 13.2 %; Neutrophils # (auto) 4.15 K/uL (1.40-6.50); Neutrophils % (auto) 46.4 %; Nucleated RBC # (auto) 0.07 K/uL (0.00-0.12); Nucleated RBC % (auto) 0.8 %; Platelet Count 315 K/uL (130-400); RDW Coefficient of Variation 13.8 % (11.5-14.5); RDW Standard Deviation 41.2 fL (36.4-46.3); Red Blood Count 3.13 M/uL (4.20-5.40); White Blood Count 8.95 K/ul (4.8-10.8)
[2023-06-18 05:39] LABS: Albumin Globulin Ratio 1.7 (0.9-2); Albumin Level 3.6 gm/dl (3.4-5.0); BUN Creatinine Ratio 13.6 (10-20); Bilirubin,Total 1.2 mg/dl (0.2-1.0); Calcium 8.4 mg/dl (8.6-10.3); Creatinine Clr Calc Pharmacy 134.9 ml/min; Est GFR (African American) 145.3 ml/min; Est GFR (Non-African American) 125.4 ml/min; Globulin 2.1 gm/dl (2.5-4.0); Magnesium 1.9 mg/dl (1.7-2.4); Potassium 3.9 mmol/L (3.5-5.1); Total Protein 5.7 gm/dl (6.0-8.3)
[2023-06-18 05:44] LABS: INR 1.1 (0.9-1.1); Prothrombin Time 11.9 Seconds (9.0-12.0)
[2023-06-18] MEDS ORDERED: POLYETHYLENE (MIRALAX) 17 GM PACK PO PRN (07:53)
--- NOTE | 2023-06-18 15:32 | Hospitalist Progress Note ---
Date of Service June 18, 2023 Assessment & Plan (1) Sickle-cell disease with pain: Plan: -Currently stable with improving symptoms, not yet completely resolved or able to be managed with typical PO pain medications -Has been feeling generally weak with poor appetite over the past 48 hours, notse mild congestion but otherwise is asymptomatic -Will continue with prn tylenol for mild pain and 1mg IV dilaudid q3h prn pain -Will order prn warm compresses for her focal areas of discomfort -Wean to home PO regimen as able (2) Generalized weakness: Plan: -Likely multifactorial including poor sleep/appetite due to increased pain, fatigue from increased sickle cell pain, and possible viral infection -No leukocytosis, symptoms, or phsical exam findings to suggest bacterial infection at this time -Continue symptomatic care for now - for respiratory panel negative (3) Dehydration: Plan: -Continue light IV hydration until she is eating/drinking consistently (4) Asthma: Plan: -Stable on RA -Lungs are clear on exam -Continue Symbicort -Incentive spirometry (5) Hyperbilirubinemia: Plan: -Total bili elevated at 1.9. Came down to 1.2 today -She is without abdominal discomfort or changes in bowel habits -Likely due to dehydration and sickle cell crisis/pain -Has been higher on previous admissions -Continue IV hydration, monitor am CMP Admission and Anticipated Discharge Date Admission Date: June 17, 2023 Subjective Patient has been using IV Dilaudid quite frequently. She denies chest pain or shortness of breath but still has pain Review of Systems Review of Systems: All systems reviewed & are unremarkable except as noted in HPI & below Physical Exam Physical Exam: General: Awake, conversant Heart: S1, S2/regular rate and rhythm, no murmur rubs or gallops Lungs: Clear to auscultation bilaterally. Normal effort Abdomen: Soft/nontender/nondistended. No hepatosplenomegaly Extremities: No clubbing/cyanosis. No edema Behavior: Appropriate, cooperative Results & Data Results & Data Vital Signs (Past 12 Hours) Vital Signs Temp Pulse Pulse Resp BP Pulse Ox O2 Del Method 06/18/23 15:09 81 06/18/23 14:57 36.7 C 88 18 103/62 97 Room Air 06/18/23 08:04 36.8 C 77 16 104/62 100 Room Air 06/18/23 07:33 77 Laboratory Results Abnormal lab results 06/17/23 06/18/23 Range/Units 16:17 04:47 RBC 3.13 L (4.20-5.40) M/uL Hgb 9.5 L (12.0-16.0) g/dl Hct 25.8 L (37.0-47.0) % MCHC 36.8 H (32.0-36.0) g/dL Brooke # (Auto) 1.18 H (0.11-0.59) K/uL Chloride 112 H (98-107) mmol/L Anion Gap 1 L (3-11) Calcium 8.4 L (8.6-10.3) mg/dl Total Bilirubin 1.2 H (0.2-1.0) mg/dl Total Protein 5.7 L D (6.0-8.3) gm/dl Globulin 2.1 L (2.5-4.0) gm/dl Urine Ketones Trace H (Negative) Urine Blood 3+ H (Negative) Urine RBC (Auto) >30 H (0-4) /hpf U Epithel Cells (Auto) >30 H (0-5) /lpf PG Care Time/CCT Total # of Minutes Spent Total Time Spent with Patient: Total time spent is greater than 50% in coordination of care (as documented) at patient's floor/unit and/or counseling patient: Coding Level of Care Code 62259 SUB INP/OBS CARE 2/35MIN Diagnoses Sickle-cell disease with pain D57.00 Generalized weakness R53.1 Dehydration E86.0 Asthma J45.909 Hyperbilirubinemia E80.6
[2023-06-18] MEDS: ENOXAPARIN INJ 40 MG/0.4 ML SYR SQ SCH (17:37)
[2023-06-19] MEDS: HYDROmorphone INJ 1 MG/ML SYRINGE IV PRN ×2 (01:21→04:58)
[2023-06-19 05:50] LABS: Basophils # (auto) 0.14 K/uL (0.00-0.20); Basophils % (auto) 1.8 %; Eosinophils # (auto) 0.74 K/uL (0.00-0.50); Eosinophils % (auto) 9.3 %; Hematocrit (blood only) 26.3 % (37.0-47.0); Immature Granulocytes # (auto) 0.01 K/uL (0.01-0.20); Immature Granulocytes % (auto) 0.1 %; Lymphocytes # (auto) 3.34 K/uL (1.20-3.40); Lymphocytes % (auto) 42.1 %; Mean Corpuscular Hemoglobin 30.8 pg (25.0-34.0); Mean Corpuscular Volume 80.9 fL (80.0-100.0); Mean Platelet Volume 9.5 fL (9.4-12.4); Monocytes # (auto) 1.05 K/uL (0.11-0.59); Monocytes % (auto) 13.2 %; Neutrophils # (auto) 2.66 K/uL (1.40-6.50); Neutrophils % (auto) 33.5 %; Nucleated RBC # (auto) 0.11 K/uL (0.00-0.12); Nucleated RBC % (auto) 1.4 %; Platelet Count 335 K/uL (130-400); RDW Coefficient of Variation 13.7 % (11.5-14.5); RDW Standard Deviation 39.7 fL (36.4-46.3); Red Blood Count 3.25 M/uL (4.20-5.40); White Blood Count 7.94 K/ul (4.8-10.8)
[2023-06-19 06:08] LABS: Alanine Aminotransferase 11 U/L (7-52); Albumin Globulin Ratio 1.5 (0.9-2); Albumin Level 3.8 gm/dl (3.4-5.0); Alkaline Phosphatase 44 U/L (34-104); Anion Gap 4 (3-11); Aspartate Aminotransferase 17 U/L (13-39); BUN Creatinine Ratio 10.5 (10-20); Bilirubin,Total 1.5 mg/dl (0.2-1.0); Blood Urea Nitrogen 6 mg/dl (6-23); Calcium 8.9 mg/dl (8.6-10.3); Carbon Dioxide 25 mmol/L (21-32); Chloride 110 mmol/L (98-107); Creatinine Clr Calc Pharmacy 156.2 ml/min; Est GFR (African American) > 150.0 ml/min; Est GFR (Non-African American) 131.6 ml/min; Globulin 2.6 gm/dl (2.5-4.0); Glucose 94 mg/dl (70-99(Fasting)); Potassium 4.1 mmol/L (3.5-5.1); Sodium 139 mmol/L (136-145); Total Protein 6.4 gm/dl (6.0-8.3)
--- NOTE | 2023-06-19 09:32 | Discharge Summary ---
Date of Service June 19, 2023 Admission HPI Per Admitting Provider Kaylan is a 23 year old female PMHx significant for sickle cell disease (on Monthly Adakveo infusions), followed by Dr. Gallegos at [facility], presented to the [facility] ED on 06/17 with back/leg pain that feels similar to previous sickle cell exacerbations. She remained stable in the ED. Labs were significant for a stable Hgb of 11.3), INR of 1.9 with direct bili and other LFT's WNL. The patient was given 3 doses of 1 mg IV Dilaudid, 30 mg IV toradol, and 1L NSS without relief of her pain but with some improvement. Prior to admission the patient was ordered another 1L NSS. At the time of the exam the patient was sitting in bed in no acute distress, she appears fatigued during my exam. She states that she has been experiencing increased generalized weakness/fatigue, congestion, and increased pain over the past 72 hours. She states that her pain is in her back and LE's where her typical sickle cell pain is located, but it was not controlled on her normal regimen of 2mg PO dilaudid and and tylenol. She denies recent fever, productive cough, chest pain, SOB, abd pain, nausea, vomiting, diarrhea, dysuria, hematuria, melena, LE swelling, and recent trauma. She confirms that her pain is improving with the IV Dilaudid but not enough to go home at this time. She feels as thought she should hopefully be ready to go home tomorrow. She has not been eating or drinking well over the past 48 hours due to her symptoms. Please refer to Dr. Barker's attestation for any changes to the treatment plan Admission Exam Per Admitting Provider General: In no acute distress, stated age, well-nourished, fatigued but non- toxic HEENT: Normocephalic, atraumatic, no scleral icterus, pupils around round, symmetrical, and reactive to light, dry mucus membranes, trachea midline, no thyromegaly Chest/Pulm: No respiratory distress, symmetrical chest expansion, clear breath sounds throughout Cardiac: RRR, no murmurs noted Abdomen: Negative for ascites and bruising, normoactive bowel sounds, soft, non- tender to palpation throughout Musculoskeletal: Symmetrical and without signs of acute trauma, upper and lower extremities with full ROM, patient is non-tender to palpation of the c ervical/thoracic/lumbar spine and without signs of acute trauma on palpating. Extremities: Radial, dorsalis pedis, and posterior tibial pulses are intact and symmetrical, no edema noted in the BL LE's Skin: Warm, dry, no rashes , lesions, or scars noted Neuro: Alert and oriented to person, place, month, year, and president, no focal defects, no tremors noted Psych: No acute distress, tired but calm and cooperative during the exam Principal Diagnosis Intractable pain due to sickle cell crisis Discharge Exam General: Awake, conversant Heart: S1, S2/regular rate and rhythm, no murmur rubs or gallops Lungs: Clear to auscultation bilaterally. Normal effort Abdomen: Soft/nontender/nondistended. No hepatosplenomegaly Extremities: No clubbing/cyanosis. No edema Behavior: Appropriate, cooperative Discharge Data Allergies Allergy/AdvReac Type Severity Reaction Status Date / Time peanut Allergy Intermediate ITCHY HIVES Verified 06/17/23 11:13 Consultations 06/17/23 13:14 ED Decision to Admit Stat Hospital Course (1) Sickle-cell disease with pain: needed to be admitted and treated with IV narcotics Was treated with IV fluids as well Improved slowly Being discharged on p.o. home regimen. Advised to follow-up with her PCP and her social media project manager outpatient (2) Generalized weakness: -Likely multifactorial including poor sleep/appetite due to increased pain, fatigue from increased sickle cell pain, and possible viral infection -No leukocytosis, symptoms, or phsical exam findings to suggest bacterial infection at this time - resolved (3) Dehydration: resolved (4) Asthma: -Stable on RA -Lungs are clear on exam -Continue Symbicort (5) Hyperbilirubinemia: -Total bili elevated at 1.9. Came down to 1.2 today -She is without abdominal discomfort or changes in bowel habits -Likely due to dehydration and sickle cell crisis/pain -Has been higher on previous admissions -Continue IV hydration, monitor am CMP Plan discharge today Total Time Total Time Spent Total Time Spent (In Minutes): 35 Discharge Plan Discharge Items Patient Disposition: Home - Self-Care Reason For Visit: UNCONTROLLED PAIN FROM SICKLE CELL CRISIS Discharge Diagnosis: Intractable pain from sickle cell crisis Activity: Resume your previous activity Non-emergency contact: Primary Care Provider Call non-emergency contact if: you have any medication questions and your symp toms worsen Follow-up/Referrals: [facility] [Primary Care Provider] - Janis Carrera MD [Physician] - (Routine follow up sickle cell disease locally on discharge) Diet: Regular Addtl Attending Provider Instructions: Advised to follow-up with PCP in 1 week Advised to follow-up with social media project manager in 2 weeks Pending Studies at Discharge: No Stand-Alone Forms: My [facility] Medications and DC Order Prescriptions: Continued cetirizine 10 mg tablet 10 mg PO HS PRN (Reason: Congestion) acetaminophen 325 mg tablet 650 mg PO DIRECTED PRN (Reason: Pain) budesonide-formoterol [Symbicort] 80-4.5 mcg/actuation Hfa Aerosol Inhaler 2 puff INHALATION BID PRN (Reason: Shortness Of Breath Or Wheezing) Adakveo 10 mg/mL Solution See Rx Instructions .ROUTE .COMPLEX Rx Instructions: infusion monthly per pt folic acid 1 mg tablet 1 mg PO DAILY hydromorphone 2 mg tablet 2 mg PO Q4H PRN (Reason: pain) Qty: 20 0RF Discharge Orders: Discharge Order (Routine); Ordered 06/19/23 Ordered By: Harinder Lima Admission Data Admit Date/Time: 06/17/23 13:19 Attending Provider: Harinder Lima Admit Provider: Tony Barker Primary Care Provider: [facility] Other Providers: Tony Barker Other Interventions: Discharge Summary Assessment (RN) Last Done: 06/19/23 11:11 Coding Level of Care Code 94361 INP/OBS DISCH >30 MIN Diagnoses Sickle-cell disease with pain D57.00 Generalized weakness R53.1 Dehydration E86.0 Asthma J45.909 Hyperbilirubinemia E80.6
== END 2023-06-19 12:37 | disposition home or self-care (01) ==
LOC: ED 08:38 → INTOOBSV 13:19 → SUATTDRO 13:19 → EDINP 13:19 → 2W 15:45

== ENCOUNTER 2023-07-21 07:02 | Inpatient (IN) ==
[2023-07-21] MEDS ORDERED: ACETAMINOPHEN 1,000 MG/100 ML VIAL IV STA (07:24)
[2023-07-21] MEDS ORDERED: SODIUM CHLORIDE 0.9% 1,000 ML IV ONE ×2 (07:24→09:05)
--- NOTE | 2023-07-21 07:30 | Emergency Department Note ---
Impression & Plan Sickle-cell disease with pain ED Provider Note ED Provider Note NAME: SYMONE SAN AGE:23 SEX: Female : 2000 ARRIVES VIA: Private vehicle INFORMANT: Patient ED PROVIDER(s): Fanny Castaneda DO CHIEF COMPLAINT: Worsening pain, sickle cell disease HPI: This is a 23-year-old female who reports increased leg and knee pain bilaterally that began yesterday which is consistent with her pain crises. She states 2 days ago she had mild URI symptoms and then yesterday she was stressed out because of taking an exam. She states these things can typically can cause her to have a pain crisis. She states she does have oral Dilaudid at home that she did take twice yesterday with some accompanying ibuprofen without any relief. Her hunter is back home out of [facility]. She denies fevers or chills. She states she has a slight nonproductive cough. Mild nasal congestion. No other cold-like symptoms. No chest pain or difficulty breathing. She denies abdominal pain, vomiting or diarrhea. PAST MEDICAL HISTORY:See Below PAST SURGICAL HISTORY:See Below FAMILY HISTORY:See Below SOCIAL HISTORY:See Below HOME MEDICATIONS:See Below ALLERGIES:See Below VITALS:See Below PHYSICAL EXAMINATION: GENERAL: alert, well appearing, well nourished, no distress, non-toxic EYE EXAM: normal conjunctiva, PERRL and EOM's grossly intact OROPHARYNX: no exudate, no erythema, lips, buccal mucosa, and tongue normal and mucous membranes are moist NECK: supple, no nuchal rigidity, no adenopathy, non-tender LUNGS: Clear to auscultation. Normal chest wall mechanics, no w/r/r HEART: no murmurs, S1 normal and S2 normal ABDOMEN: abdomen soft, non-tender, normo-active bowel sounds, no masses, no rebound or guarding. BACK: Back is symmetrical on inspection and there is no deformity, no midline tenderness, no CVA tenderness. SKIN: no rashes, petechiae, orbruising UPPER EXTREMITIES: upper extremities are grossly normal. FROM, nml pulses b/l. LOWER EXTREMITIES: No pitting edema. FROM, nml pulses b/l. No joint effusions. Sensation intact bilaterally. No evidence of trauma or deformity. NEURO EXAM: Normal sensorium, cranial nerves II-XII grossly intact, normal speech, no facial droop,nogross weakness of arms, no gross weakness of legs. Gross sensation intact. No ataxia. Vital Signs: reviewed and remarkable Differential Diagnosis: Sickle cell crisis, dehydration, DELROY, electrolyte abnormality, anxiety, medication ADR, URI, PNA, as well as others were considered MEDICAL DECISION MAKING: This is a 23-year-old female presents emergency room due to concern for worsening bilateral lower extremity pain consistent with prior sickle cell pain crisis. Patient afebrile and vital signs stable. Labs drawn and sent, IV established, EKG and chest x-ray performed bedside interpreted by me and patient monitored on telemetry. She was started on IV fluids given IV Tylenol and IV Dilaudid as she uses oral Dilaudid at home. A second liter of IV fluids was added as was IV Toradol and additional IV Dilaudid. After multiple episodes of pain medication and IV fluids patient continued to complain of pain and did not feel she could go home and take her usual oral Dilaudid. Case discussed with hospitalist team for additional evaluation and management. At this time I do not suspect infectious etiology. I do not suspect acute chest syndrome. Do not suspect DVT/PE. Consultation(s): 1310: Discussed with FRANCES MCADAMS with [facility] hospitalist team. ER Treatment Provided: See below Diagnostics Interpreted By Me: -ECG: Normal sinus at 89, normal axis, normal intervals, no acute ST/T wave changes -Cardiac Monitoring: An order was placed for continuous cardiac monitoring. The monitor shows a rate of 78 with normal sinus rhythm. -Laboratory studies: As stated above and show below. -Imaging studies: X-ray Chest: A single view study of the chest was reviewed and was negative for cardiomegaly, focal infiltrate, effusion, pulmonary edema, or wide mediastinum. Triage Nursing Note Reviewed Prior/Outside Records Reviewed-prior discharge summary reviewed Past Med/Surg History Medical History Abnormal LFTs Anxiety Asthma Back pain Constipation COVID-19 Influenza A Leukocytosis Parainfluenza Pneumonia Pyelonephritis Seasonal allergies Sepsis Sepsis Sickle cell anemia Sickle cell anemia with crisis Sickle cell crisis Sickle cell crisis Splenomegaly Transaminitis Vaginal ulceration Surgical History No pertinent past surgical history Family History Brother Sickle cell anemia Social History Smoking Status: Never smoker Second Hand Exposure: No; Do You Dip or Chew Tobacco: No; Hx Alcohol Use: Yes Alcohol type: wine and hard liquor Alcohol Intake Frequency: Monthly or Less Alcohol Intake Frequency Comment: 1 drink Hx Substance Use: Yes Preferred Language: Welsh Communication Ability: Effective Wrapper Hand Required: No Beliefs That Will Affect Care: None marital status: Single Current Living Situation: Other Current Living Situation Comment: roomates Other Information That Helps Us Care for You: No Feels Safe at Home: Yes Safety Concerns: Feels Safe At This Time Assistive Devices: None Allergies Allergies Allergy/AdvReac Type Severity Reaction Status Date / Time peanut Allergy Intermediate ITCHY HIVES Verified 07/21/23 12:44 Home Meds Home Medications Medication Instructions Recorded Confirmed cetirizine 10 mg tablet 10 mg PO HS PRN Congestion 04/18/20 07/21/23 acetaminophen 325 mg tablet 650 mg PO DIRECTED PRN Pain 12/13/21 07/21/23 crizanlizumab-tmca 10 mg/mL See Rx Instructions .Route .COMPLEX 06/30/22 07/21/23 intravenous solution (Adakveo) budesonide-formoterol HFA 80 2 puff inhalation BID PRN 12/14/22 07/21/23 mcg-4.5 mcg/actuation aerosol Shortness Of Breath Or Wheezing inhaler (Symbicort) folic acid 1 mg tablet 5 mg PO DAILY 05/25/23 07/21/23 sertraline 25 mg PO DAILY 07/21/23 07/21/23 Previous Rx's Medication Instructions Recorded hydromorphone 2 mg tablet 2 mg PO Q4H PRN pain #20 tabs 05/26/23 Results & Data (ED) Vital Signs Vital Signs - 24 hr 07/21/23 07:06 07/21/23 07:55 07/21/23 07:55 Temperature 36.3 C L Temperature Source Temporal Artery Scan Pulse Rate 95 H 90 Pulse Rate from SpO2 Sensor Respiratory Rate 18 15 Respiratory Depth Normal Blood Pressure 109/61 125/94 Blood Pressure Mean 77 95 Blood Pressure Position Sitting Pulse Oximetry 99 Oxygen Delivery Method Room Air Sepsis Recent Fever Within 48 Hours No Sepsis New/Unexplained Change in Mental Status No Sepsis Action Taken by Nursing No Action Required 07/21/23 08:00 07/21/23 08:01 07/21/23 08:01 Temperature Temperature Source Pulse Rate 87 86 Pulse Rate from SpO2 Sensor 85 84 Respiratory Rate 15 15 Respiratory Depth Blood Pressure 128/98 Blood Pressure Mean 99 Blood Pressure Position Pulse Oximetry 95 100 Oxygen Delivery Method Sepsis Recent Fever Within 48 Hours Sepsis New/Unexplained Change in Mental Status Sepsis Action Taken by Nursing 07/21/23 08:11 07/21/23 08:30 07/21/23 08:30 Temperature Temperature Source Pulse Rate 85 84 Pulse Rate from SpO2 Sensor 86 Respiratory Rate 17 Respiratory Depth Blood Pressure 124/80 Blood Pressure Mean 97 Blood Pressure Position Pulse Oximetry 99 Oxygen Delivery Method Sepsis Recent Fever Within 48 Hours Sepsis New/Unexplained Change in Mental Status Sepsis Action Taken by Nursing 07/21/23 09:00 07/21/23 09:00 07/21/23 09:30 Temperature Temperature Source Pulse Rate 79 Pulse Rate from SpO2 Sensor Respiratory Rate 13 Respiratory Depth Blood Pressure 111/77 112/80 Blood Pressure Mean 90 96 Blood Pressure Position Pulse Oximetry Oxygen Delivery Method Sepsis Recent Fever Within 48 Hours Sepsis New/Unexplained Change in Mental Status Sepsis Action Taken by Nursing 07/21/23 09:30 07/21/23 10:00 07/21/23 10:00 Temperature Temperature Source Pulse Rate 72 69 Pulse Rate from SpO2 Sensor 73 Respiratory Rate 16 14 Respiratory Depth Blood Pressure 103/58 L Blood Pressure Mean 73 Blood Pressure Position Pulse Oximetry 97 Oxygen Delivery Method Sepsis Recent Fever Within 48 Hours Sepsis New/Unexplained Change in Mental Status Sepsis Action Taken by Nursing 07/21/23 12:29 Temperature Temperature Source Pulse Rate 77 Pulse Rate from SpO2 Sensor Respiratory Rate Respiratory Depth Blood Pressure Blood Pressure Mean Blood Pressure Position Pulse Oximetry Oxygen Delivery Method Sepsis Recent Fever Within 48 Hours Sepsis New/Unexplained Change in Mental Status Sepsis Action Taken by Nursing Laboratory Data 07/22/23 07:17 07/22/23 02:14 Lab Results 07/21/23 07/21/23 07/21/23 Range/Units 07:35 08:00 08:19 WBC 8.43 (4.8-10.8) K/ul RBC 3.36 L (4.20-5.40) M/uL Hgb 10.3 L (12.0-16.0) g/dl Hct 27.8 L (37.0-47.0) % MCV 82.7 (80.0-100.0) fL MCH 30.7 (25.0-34.0) pg MCHC 37.1 H (32.0-36.0) g/dL RDW Std Deviation 41.6 (36.4-46.3) fL RDW Coeff of Kashif 14.1 (11.5-14.5) % Plt Count 353 (130-400) K/uL MPV 9.6 (9.4-12.4) fL Immature Gran % (Auto) 0.4 % Neut % (Auto) 45.3 % Lymph % (Auto) 35.3 % Vigo % (Auto) 13.4 % Eos % (Auto) 4.4 % Baso % (Auto) 1.2 % Reticulocyte % (Auto) 6.8 H (0.5-2.0) % Neut # (Auto) 3.82 (1.40-6.50) K/uL Lymph # (Auto) 2.98 (1.20-3.40) K/uL Vigo # (Auto) 1.13 H (0.11-0.59) K/uL Eos # (Auto) 0.37 (0.00-0.50) K/uL Baso # (Auto) 0.10 (0.00-0.20) K/uL Reticulocyte # 0.23 H (0.02-0.10) 10^6/uL Immature Gran # (Auto) 0.03 (0.01-0.20) K/uL Absolute Nucleated RBC 0.06 (0.00-0.12) K/uL Nucleated RBC % (auto) 0.7 % Sodium 137 (136-145) mmol/L Potassium 4.0 (3.5-5.1) mmol/L Chloride 110 H (98-107) mmol/L Carbon Dioxide 23 (21-32) mmol/L Anion Gap 4 (3-11) BUN 6 (6-23) mg/dl Creatinine 0.59 L (0.6-1.2) mg/dl Est Cr Clr Drug Dosing 145.4 ml/min Est GFR ( Amer) > 150.0 ml/min Est GFR (Non-Af Amer) 130.1 ml/min BUN/Creatinine Ratio 10.2 (10-20) Glucose 100 H (70-99(Fasting)) mg/dl Calcium 8.9 (8.6-10.3) mg/dl Magnesium 1.7 (1.7-2.4) mg/dl Total Bilirubin 1.2 H (0.2-1.0) mg/dl AST 22 (13-39) U/L ALT 13 (7-52) U/L Alkaline Phosphatase 42 (34-104) U/L Troponin I High Sens < 2.3 (0-14) pg/ml Total Protein 6.2 (6.0-8.3) gm/dl Albumin 4.0 (3.4-5.0) gm/dl Globulin 2.2 L (2.5-4.0) gm/dl Albumin/Globulin Ratio 1.8 (0.9-2) Lipase 13 (11-82) U/L TSH 3.663 (0.300-4.500) uIu/ml HCG, Qual Negative (Negative) Adenovirus (PCR) Not Detected (NotDetected) B. pertussis DNA (PCR) Not Detected (NotDetected) B.parapertussis DNA PCR Not Detected (NotDetected) C. pneumoniae DNA (PCR) Not Detected (NotDetected) Coronavirus OC43 (PCR) Not Detected (NotDetected) Coronavirus HKU1 (PCR) Not Detected (NotDetected) Coronavirus 229E (PCR) Not Detected (NotDetected) SARS-CoV-2 (PCR) Not Detected (NotDetected) Coronavirus NL63 (PCR) Not Detected (NotDetected) Human Metapneumovir PCR Not Detected (NotDetected) Influenza Type A (PCR) Not Detected (NotDetected) Influenza Type B (PCR) Not Detected (NotDetected) M. pneumoniae (PCR) Not Detected (NotDetected) Parainfluenza 1 (PCR) Not Detected (NotDetected) Parainfluenza 2 (PCR) Not Detected (NotDetected) Parainfluenza 3 (PCR) Not Detected (NotDetected) Parainfluenza 4 (PCR) Not Detected (NotDetected) RSV (PCR) Not Detected (NotDetected) Entero/Rhino (PCR) Not Detected (NotDetected) Administered Medications Docusate Sodium (Docusate Sodium 100 Mg Cap) 100 mg PO BID ROBYN Stop: 08/20/23 20:59 Last Admin: 07/22/23 08:11 Dose: 100 mg Documented By: Admin: 07/21/23 21:41 Dose: 100 mg Documented By: MERRILL Enoxaparin Sodium (Enoxaparin Inj 40 Mg/0.4 Ml Syr) 40 mg SQ Q24H ROBYN Stop: 08/20/23 20:59 Last Admin: 07/21/23 21:41 Dose: Not Given Documented By: ARSON INVESTIGATOR Folic Acid (Folic Acid 1 Mg Tab) 5 mg PO DAILY ROBYN Stop: 08/21/23 08:59 Last Admin: 07/22/23 08:11 Dose: 5 mg Documented By: JAMESON Hydromorphone HCl (Hydromorphone Inj 0.5 Mg/0.5 Ml Syr) 0.5 mg IV Q30M PRN PRN Reason: Breakthrough pain Stop: 08/04/23 17:31 Last Admin: 07/22/23 12:26 Dose: 0.5 mg Documented By: Admin: 07/22/23 10:18 Dose: 0.5 mg Documented By: Admin: 07/22/23 07:27 Dose: 0.5 mg Documented By: Admin: 07/22/23 03:10 Dose: 0.5 mg Documented By: Admin: 07/22/23 02:36 Dose: 0.5 mg Documented By: ARSON INVESTIGATOR Admin: 07/22/23 00:16 Dose: 0.5 mg Documented By: MERRILL Acetaminophen (Ofirmev) 1,000 mg in 100 mls @ 400 mls/hr IV Q8H [facility] Stop: 07/24/23 17:59 Last Infusion: 07/22/23 10:40 Dose: Infused Documented By: Admin: 07/22/23 10:23 Dose: 400 mls/hr Documented By: Infusion: 07/22/23 02:36 Dose: Infused Documented By: Admin: 07/22/23 02:18 Dose: 400 mls/hr Documented By: ARSON INVESTIGATOR Infusion: 07/21/23 18:05 Dose: Infused Documented By: ARSON INVESTIGATOR Admin: 07/21/23 17:47 Dose: 400 mls/hr Documented By: MERRILL Sodium Chloride (1/2 Nss) 1,000 mls @ 110 mls/hr IV .Q9H6M ROBYN Stop: 08/21/23 08:59 Last Admin: 07/22/23 10:23 Dose: 110 mls/hr Documented By: JAMESON Ketorolac Tromethamine (Ketorolac 30 Mg/Ml Vial) 30 mg IV Q6H PRN PRN Reason: Pain Stop: 07/26/23 23:20 Last Admin: 07/22/23 00:16 Dose: 30 mg Documented By: MERRILL Ondansetron HCl (Ondansetron Inj 2 Mg/Ml 2 Ml Vial) 4 mg IV Q6H PRN PRN Reason: Nausea Stop: 08/20/23 17:31 Last Admin: 07/22/23 00:16 Dose: 4 mg Documented By: MERRILL Pantoprazole Sodium (Pantoprazole 40 Mg Tab) 40 mg PO HS ROBYN Stop: 08/20/23 23:24 Last Admin: 07/22/23 00:15 Dose: 40 mg Documented By: MERRILL Sennosides (Senna 8.6 Mg Tab) 8.6 mg PO QPM ROBYN Stop: 08/20/23 20:59 Last Admin: 07/21/23 21:41 Dose: 8.6 mg Documented By: MERRILL Sertraline HCl (Sertraline Hcl 50 Mg Tablet) 25 mg PO DAILY ROBYN Stop: 08/21/23 08:59 Last Admin: 07/22/23 08:11 Dose: 25 mg Documented By: JAMESON Discontinued Medications Hydromorphone HCl (Hydromorphone Inj 0.5 Mg/0.5 Ml Syr) 0.5 mg IV Q15M PRN PRN Reason: Pain Stop: 08/04/23 07:23 Last Admin: 07/21/23 17:15 Dose: 0.5 mg Documented By: Admin: 07/21/23 16:31 Dose: 0.5 mg Documented By: Admin: 07/21/23 14:43 Dose: 0.5 mg Documented By: Admin: 07/21/23 13:08 Dose: 0.5 mg Documented By: Admin: 07/21/23 12:04 Dose: 0.5 mg Documented By: Admin: 07/21/23 09:08 Dose: 0.5 mg Documented By: Admin: 07/21/23 08:20 Dose: 0.5 mg Documented By: Admin: 07/21/23 07:44 Dose: 0.5 mg Documented By: LEIDY Hydromorphone HCl (Hydromorphone Inj 1 Mg/Ml Syringe) 1 mg IV NOW STA Stop: 07/21/23 11:11 Last Admin: 07/21/23 11:20 Dose: 1 mg Documented By: LEIDY Hydromorphone HCl (Hydromorphone Inj 0.5 Mg/0.5 Ml Syr) 0.5 mg IV Q1H PRN PRN Reason: Breakthrough pain Stop: 08/04/23 17:31 Last Admin: 07/21/23 21:58 Dose: 0.5 mg Documented By: Admin: 07/21/23 20:20 Dose: 0.5 mg Documented By: MERRILL Sodium Chloride (Nss) 1,000 mls @ 999 mls/hr IV .Q1H1M ONE Stop: 07/21/23 08:24 Last Infusion: 07/21/23 08:42 Dose: Infused Documented By: Admin: 07/21/23 07:46 Dose: 999 mls/hr Documented By: LEIDY Acetaminophen (Ofirmev) 1,000 mg in 100 mls @ 400 mls/hr IV NOW STA Stop: 07/21/23 07:38 Last Infusion: 07/21/23 08:42 Dose: Infused Documented By: Admin: 07/21/23 07:45 Dose: 400 mls/hr Documented By: LEIDY Sodium Chloride (Nss) 1,000 mls @ 999 mls/hr IV .Q1H1M ONE Stop: 07/21/23 10:05 Last Infusion: 07/21/23 11:54 Dose: Infused Documented By: Admin: 07/21/23 09:30 Dose: 999 mls/hr Documented By: LEIDY Sodium Chloride (Nss) 1,000 mls @ 125 mls/hr IV .Q8H ROBYN Stop: 08/20/23 12:59 Last Infusion: 07/21/23 18:00 Dose: Infused Documented By: ARSON INVESTIGATOR Admin: 07/21/23 13:08 Dose: 125 mls/hr Documented By: LEIDY Lactated Ringer's (Lr) 1,000 mls @ 125 mls/hr IV .Q8H ROBYN Stop: 07/22/23 11:50 Last Infusion: 07/22/23 07:27 Dose: Infused Documented By: Admin: 07/21/23 20:19 Dose: 80 mls/hr Documented By: MERRILL Ketorolac Tromethamine (Ketorolac Tromethamine 15 Mg/Ml Vial) 10 mg IV NOW ONE Stop: 07/21/23 10:54 Last Admin: 07/21/23 11:20 Dose: 10 mg Documented By: LEIDY Ondansetron HCl (Ondansetron Inj 2 Mg/Ml 2 Ml Vial) 4 mg IV NOW STA Stop: 07/21/23 14:28 Last Admin: 07/21/23 14:41 Dose: 4 mg Documented By: LEIDY Imaging Data Radiologist's Impression: Chest X-Ray 07/21/23 07:24 SINGLE VIEW CHEST CLINICAL HISTORY: Cough FINDINGS: An AP, portable, upright chest radiograph is compared to study dated 06/17/2023. The cardiomediastinal silhouette is unremarkable. There is minimal bibasilar atelectasis. The lungs and pleural spaces are otherwise clear. No pneumothorax is seen. The bony thorax is grossly intact. IMPRESSION: No active disease in the chest. ACT 112: Negative or not required by law. Electronically signed by: Lakhwinder Syed M.D. 07/21/2023 8:08 AM Discharge Plan Visit Data Chief Complaint: Pain (Generalized) Stated Complaint: SYCKLE CELL PAIN ED Provider: Fanny Castaneda Discharge Problem: Sickle-cell disease with pain Discharge Instructions Interventions: ED Discharge Assessment Last Done: 07/21/23 17:11
[2023-07-21] MEDS: HYDROmorphone INJ 0.5 MG/0.5 ML SYR IV PRN ×10 (07:44→21:58)
[2023-07-21 07:57] LABS: Basophils % (auto) 1.2 %; Eosinophils # (auto) 0.37 K/uL (0.00-0.50); Eosinophils % (auto) 4.4 %; Hematocrit (blood only) 27.8 % (37.0-47.0); Hemoglobin 10.3 g/dl (12.0-16.0); Immature Granulocytes # (auto) 0.03 K/uL (0.01-0.20); Immature Granulocytes % (auto) 0.4 %; Lymphocytes # (auto) 2.98 K/uL (1.20-3.40); Lymphocytes % (auto) 35.3 %; Mean Corpuscular Hemoglobin 30.7 pg (25.0-34.0); Mean Corpuscular Hgb Conc 37.1 g/dL (32.0-36.0); Mean Corpuscular Volume 82.7 fL (80.0-100.0); Mean Platelet Volume 9.6 fL (9.4-12.4); Monocytes # (auto) 1.13 K/uL (0.11-0.59); Monocytes % (auto) 13.4 %; Neutrophils # (auto) 3.82 K/uL (1.40-6.50); Neutrophils % (auto) 45.3 %; Nucleated RBC # (auto) 0.06 K/uL (0.00-0.12); Nucleated RBC % (auto) 0.7 %; Platelet Count 353 K/uL (130-400); RDW Coefficient of Variation 14.1 % (11.5-14.5); RDW Standard Deviation 41.6 fL (36.4-46.3); Red Blood Count 3.36 M/uL (4.20-5.40); Reticulocyte % 6.8 % (0.5-2.0); Reticulocytes # 0.23 10^6/uL (0.02-0.10); White Blood Count 8.43 K/ul (4.8-10.8)
--- NOTE | 2023-07-21 08:09 | XRay Report ---
SINGLE VIEW CHEST CLINICAL HISTORY: Cough FINDINGS: An AP, portable, upright chest radiograph is compared to study dated 06/17/2023. The cardiom ediastinal silhouette is unremarkable. There is minimal bibasilar atelectasis. The lungs and pleural spaces are otherwise clear. No pneumothorax is seen. The bony thorax is grossly intact. IMPRESSION: No active disease in the chest. ACT 112: Negative or not required by law. Electronically signed by: Lakhwinder Syed M.D. 07/21/2023 8:08 AM
[2023-07-21 08:13] LABS: Pregnancy Test, Serum Negative (Negative)
[2023-07-21 08:32] LABS: Alanine Aminotransferase 13 U/L (7-52); Albumin Globulin Ratio 1.8 (0.9-2); Alkaline Phosphatase 42 U/L (34-104); Anion Gap 4 (3-11); Aspartate Aminotransferase 22 U/L (13-39); BUN Creatinine Ratio 10.2 (10-20); Bilirubin,Total 1.2 mg/dl (0.2-1.0); Blood Urea Nitrogen 6 mg/dl (6-23); Calcium 8.9 mg/dl (8.6-10.3); Carbon Dioxide 23 mmol/L (21-32); Chloride 110 mmol/L (98-107); Creatinine Clr Calc Pharmacy 145.4 ml/min; Est GFR (African American) > 150.0 ml/min; Est GFR (Non-African American) 130.1 ml/min; Globulin 2.2 gm/dl (2.5-4.0); Glucose 100 mg/dl (70-99(Fasting)); Lipase 13 U/L (11-82); Magnesium 1.7 mg/dl (1.7-2.4); Sodium 137 mmol/L (136-145); Total Protein 6.2 gm/dl (6.0-8.3)
[2023-07-21 08:38] LABS: Troponin I High Sensitivity < 2.3 pg/ml (0-14)
[2023-07-21 08:47] LABS: Thyroid Stimulating Hormone 3.663 uIu/ml (0.300-4.500)
[2023-07-21] MEDS ORDERED: KETOROLAC TROMETHAMINE 15 MG/ML VIAL IV ONE (10:53)
[2023-07-21 10:56] LABS: Adenovirus PCR Not Detected (NotDetected); Bordetella parapertussis PCR Not Detected (NotDetected); Bordetella pertussis PCR Not Detected (NotDetected); Chlamydia pneumoniae PCR Not Detected (NotDetected); Coronavirus 229E PCR Not Detected (NotDetected); Coronavirus CoV-2 (COVID19)PCR Not Detected (NotDetected); Coronavirus HKU1 PCR Not Detected (NotDetected); Coronavirus NL63 PCR Not Detected (NotDetected); Coronavirus OC43PCR Not Detected (NotDetected); Human Metapneumovirus PCR Not Detected (NotDetected); Influenza A PCR Not Detected (NotDetected); Influenza B PCR Not Detected (NotDetected); Mycoplasma pneumoniae PCR Not Detected (NotDetected); Parainfluenza Virus 1 PCR Not Detected (NotDetected); Parainfluenza Virus 2 PCR Not Detected (NotDetected); Parainfluenza Virus 3 PCR Not Detected (NotDetected); Parainfluenza Virus 4 PCR Not Detected (NotDetected); Respiratory Syncytial VirusPCR Not Detected (NotDetected); Rhinovirus/Enterovirus PCR Not Detected (NotDetected)
[2023-07-21] MEDS ORDERED: HYDROmorphone INJ 1 MG/ML SYRINGE IV STA (11:10)
[2023-07-21] MEDS ORDERED: SODIUM CHLORIDE 0.9% 1,000 ML IV SCH (13:00)
--- NOTE | 2023-07-21 13:11 | History & Physical Report ---
Date of Service July 21, 2023 Assessment & Plan (1) Sickle-cell disease with pain: Plan: Intractable LE and LBP pain since the morning of 07/20 She reports the pain is similar to prior episodes of sickle cell crisis; this episode was likely triggered by recent cold/increased stress due to upcoming exams Patient normally gets Adakveo infusions No leukocytosis; afebrile Negative hCG Acetaminophen 1000 mg IV q8h Dilaudid 0.5 mg IV q1h as needed for breakthrough pain If no improvement in pain, consider starting on SAS PROGRAMMER Colace 100 mg p.o. BID (patient reports constipation is developed in the past) Zofran 4 mg IV q6h as needed for nausea; QTc 467 Continue folic acid supplementation Lovenox for DVT PPx; monitor for hypercoagulable state Continuous telemetry monitoring Continuous pulse oximetry Continue gentle fluid resuscitation at 80 mL/hr with LR Patient follows with hematology in [place]; recommend that patient finds local hematology and begins on hydroxyurea as outpatient A.m. CBC, BMP, mag, PT/INR (2) Asthma: Plan: CXR revealed NAF BioFire negative Clinically, patient denies SOB/chest pain Incentive spirometry Symbicort as needed for SOB/wheezing (3) Anxiety: Plan: Patient was previously on 75 mg sertraline daily; however, her mother reports that she stopped it and then restarted at 25 mg daily Continue sertraline 25 mg p.o. daily while inpatient Plan Disposition: Admit to [facility] telemetry Full code Regular diet VTE PPx: Lovenox 40 mg SQ q24h History of Present Illness Chief Complaint: Pain (generalized) Primary Care Provider: [facility] Kaylan is a 23-year-old female with PMH of sickle cell disease with crisis, asthma, and anxiety. She presents for constant lower extremity and lower back pain x1 day. The pain is located in her legs B/L, specifically at her knees, as well as her lower back. She describes the pain as constant, and characterizes it as a "bone and muscle pain". Pain radiates down into her feet; no radiation of the back or to the shoulder blades. Pain started yesterday morning on 07/20. She believes it was triggered by a 24-hour cold she had this week, as well as the stress she has been under due to her exam; this is usually what triggers her episodes of sickle cell crisis (acute pain syndrome). She reports this feels similar to past episodes of sickle cell crisis. She tried taking 2 tablets of 2 mg of home Dilaudid this morning, which helped the pain, but did not fully alleviate it. She reports that stress makes the pain worse; it is not worse with movements. She rates the pain 6 out of 10 at present after receiving pain medicine in the ED. She did not take any other medications this morning besides Dilaudid. She reports no recent changes in medicine. No sick contacts. No recent travel. No tick bites noticed. No recent physical trauma or injuries to the knees, lower extremities, or back. She follows with hematology in [place]. She reports she does not fully know what she takes in terms of medication, and that her mom usually manages it; however she notes that she might be taking folic acid 5 mg p.o. daily, which started 2 weeks ago. She also notes that she takes sertraline 75 mg daily, and this is not on her med list. She endorses alcohol use (most recently last weekend; she does not remember how much she had; but none in the past several days). She also endorses marijuana use, but no other recreational drug use. No tobacco use, smoking, or vaping. Mild hypertension of 103/58 at time of admission; vitals otherwise stable. ED course: NSS 1000 mL x 3 Hydromorphone IV (3.5mg total in the ED; 4.0mg taken at home, for a total of 7.5mg at time of admission) Acetaminophen 1000 mg IV Toradol 10 mg IV Hydromorphone 1 mg IV ROS: Patient endorses lower back pain, b/l leg pain, and numbness/tingling in the legs b/l. Patient denies fevers, chills, nightsweats, CP, SOB, abdominal pain, N/V/D, constipation, urinary s/s, and saddle anesthesia. Allergies Allergy/AdvReac Type Severity Reaction Status Date / Time peanut Allergy Intermediate ITCHY HIVES Verified 07/21/23 12:44 Home Medications Medication Instructions Recorded Confirmed Type cetirizine 10 mg tablet 10 mg PO HS PRN Congestion 04/18/20 07/21/23 History acetaminophen 325 mg tablet 650 mg PO DIRECTED PRN Pain 12/13/21 07/21/23 History crizanlizumab-tmca 10 mg/mL See Rx Instructions .Route .COMPLEX 06/30/22 07/21/23 History intravenous solution (Adakveo) budesonide-formoterol HFA 80 2 puff inhalation BID PRN 12/14/22 07/21/23 History mcg-4.5 mcg/actuation aerosol Shortness Of Breath Or Wheezing inhaler (Symbicort) folic acid 1 mg tablet 5 mg PO DAILY 05/25/23 07/21/23 History hydromorphone 2 mg tablet 2 mg PO Q4H PRN pain #20 tabs 05/26/23 07/21/23 Rx sertraline 25 mg PO DAILY 07/21/23 07/21/23 History Past Med/Surg History Medical History Abnormal LFTs Anxiety Asthma Back pain Constipation COVID-19 Influenza A Leukocytosis Parainfluenza Pneumonia Pyelonephritis Seasonal allergies Sepsis Sepsis Sickle cell anemia Sickle cell anemia with crisis Sickle cell crisis Sickle cell crisis Splenomegaly Transaminitis Vaginal ulceration Surgical History No pertinent past surgical history Family History Brother Sickle cell anemia Social History Smoking Status: Never smoker Second Hand Exposure: No; Do You Dip or Chew Tobacco: No; Hx Alcohol Use: Yes Alcohol type: wine and hard liquor Alcohol Intake Frequency: Monthly or Less Alcohol Intake Frequency Comment: 1 drink Hx Substance Use: Yes Preferred Language: Hungarian Communication Ability: Effective Hospital Attendant Required: No Beliefs That Will Affect Care: None marital status: Single Current Living Situation: Other Current Living Situation Comment: roomates Other Information That Helps Us Care for You: No Feels Safe at Home: Yes Safety Concerns: Feels Safe At This Time Assistive Devices: None Review of Systems Review of Systems: See HPI above Physical Exam Physical Exam: General: Acute physical pain in LEs B/L; lethargic; somewhat confused, dazed; non-toxic appearing; cooperative; 100% SPO2 on RA HEENT: normocephalic, atraumatic; no scleral icterus; PERRLA w/ EOMs intact; moist mucus membrane; vision and hearing grossly intact Neck: supple; no lymphadenopathy; trachea midline Skin: warm, dry without signs of tenting; no cyanosis; no rashes, bruising, lesions, or erythema noted CV: chest wall NTP; RRR; S1/S2 normal; no murmurs/rubs/gallops; pulses intact and symmetric at radial, DP, and PT Lungs: no acute respiratory distress; symmetrical chest wall expansion; clear breath sounds across all lung hurd w/o adventitious sounds; no wheezing ABD: Soft, NTP; BS present; no rebound/guarding; no ascites; no distention; negative CVA tenderness Back: Negative CVA tenderness; no rashes, bruises, lesions on the back; spine NTP LEs: Knees are nonerythematous, not warm to touch, not swollen; no sign of effusions MSK: no tics or fasciculations; no edema noted in the LEs b/l; patient demonstrates ability to wiggle toes Neuro: A&Ox3; lethargic, somewhat dazed (likely secondary to Dilaudid); fluent speech; no focal deficits; sensation grossly intact in the LEs B/L Results & Data Results & Data Vital Signs (Past 12 Hours) Vital Signs Temp Pulse Resp BP Pulse Ox O2 Del Method 07/21/23 12:29 77 07/21/23 10:00 103/58 L 07/21/23 10:00 69 14 07/21/23 09:30 72 16 97 07/21/23 09:30 112/80 07/21/23 09:00 111/77 07/21/23 09:00 79 13 07/21/23 08:30 124/80 07/21/23 08:30 84 17 99 07/21/23 08:11 85 07/21/23 08:01 86 15 100 07/21/23 08:01 128/98 07/21/23 08:00 87 15 95 07/21/23 07:55 90 15 07/21/23 07:55 125/94 07/21/23 07:06 36.3 C L 95 H 18 109/61 99 Room Air Laboratory Results Abnormal lab results 07/21/23 07/21/23 Range/Units 07:35 08:00 RBC 3.36 L (4.20-5.40) M/uL Hgb 10.3 L (12.0-16.0) g/dl Hct 27.8 L (37.0-47.0) % MCHC 37.1 H (32.0-36.0) g/dL Reticulocyte % (Auto) 6.8 H (0.5-2.0) % Dundy # (Auto) 1.13 H (0.11-0.59) K/uL Reticulocyte # 0.23 H (0.02-0.10) 10^6/uL Chloride 110 H (98-107) mmol/L Creatinine 0.59 L (0.6-1.2) mg/dl Glucose 100 H (70-99(Fasting)) mg/dl Total Bilirubin 1.2 H (0.2-1.0) mg/dl Globulin 2.2 L (2.5-4.0) gm/dl Diagnostic Findings Chest X-Ray 07/21/23 07:24 SINGLE VIEW CHEST CLINICAL HISTORY: Cough FINDINGS: An AP, portable, upright chest radiograph is compared to study dated 06/17/2023. The cardiomediastinal silhouette is unremarkable. There is minimal bibasilar atelectasis. The lungs and pleural spaces are otherwise clear. No pneumothorax is seen. The bony thorax is grossly intact. IMPRESSION: No active disease in the chest. ACT 112: Negative or not required by law. Electronically signed by: Lakhwinder Syed M.D. 07/21/2023 8:08 AM Code Status & VTE Plan Code Status Full code VTE Prophylaxis Plan VTE Prophylaxis will be ordered: Yes Supervising Physician Co-Signing Physician Notes I personally saw and examined the patient. I independently reviewed the labs, EKG, imaging, problem list, medication list, past medical history and family history. I verified all knox points and agree with Vitor Solis PA-C with the following exceptions and/or additions: 23 year old with sickle cell disease and recurrent bone pain episodes in legs and lower back. Current episode similar to prior occasions. O/E A&Ox3, HS RRR, no murmurs, Chest CTAB, Abdo SNT, pain on bilateral lower extremity movement A/P Sickle cell bone pain - acetaminophen, Dilaudid (increased frequency to q30min), Offered SAS PROGRAMMER pump but she reports being checked on nursing frequently enough she is doing ok on intermittent dosing at this time, add Toradol for maximum of 5 days, start Senna to avoid constipation with opiates, start pantoprazole while on Toradol for prophylaxis. Continue IV hydration. No infective cause found. Retic count elevated but not anemic. Suspect increased stress with exams and revising. PG Care Time/CCT Total # of Minutes Spent Total Time Spent with Patient: Total time spent is greater than 50% in coordination of care (as documented) at patient's floor/unit and/or counseling patient: [place] [address] INT INP/OBS CARE 3/75MIN Patient Type Established Medical Decision Making Moderate Complexity Diagnoses Sickle-cell disease with pain D57.00 Asthma J45.909 Anxiety F41.9
--- NOTE | 2023-07-21 13:50 | Electrocardiogram Report ---
Test Reason : Blood Pressure : / mmHG Vent. Rate : 089 BPM Atrial Rate : 089 BPM P-R Int : 172 ms QRS Dur : 072 ms QT Int : 384 ms P-R-T Axes : 065 051 038 degrees QTc Int : 467 ms Normal sinus rhythm Normal ECG When compared with ECG of 25-MAY-2023 05:30, No significant change was found Confirmed by Porfirio Canales ([id number]) on 07/21/2023 1:50:35 PM Referred By: Confirmed By:Porfirio Canales
[2023-07-21] MEDS ORDERED: ONDANSETRON INJ 2 MG/ML 2 ML VIAL IV STA (14:27)
[2023-07-21 16:19] LABS: INR 1.1 (0.9-1.1)
[2023-07-21] MEDS ORDERED: FLUTICASONE/VILANTEROL 100/25MCG 14 PUFFS/INHALER INH PRN (17:32)
[2023-07-21] MEDS ORDERED: NALOXONE HCL 0.4 MG/1 ML VIAL/CARP IV PRN (17:32)
[2023-07-21] MEDS ORDERED: CETIRIZINE HCL 10 MG TABLET PO PRN (17:32)
[2023-07-21] MEDS: ACETAMINOPHEN 1,000 MG/100 ML VIAL IV SCH (17:47)
[2023-07-21] MEDS ORDERED: LACTATED RINGER'S 1,000 ML IV SCH (18:00)
[2023-07-21] MEDS: SENNA 8.6 MG TAB PO SCH (21:41)
[2023-07-21] MEDS: DOCUSATE SODIUM 100 MG CAP PO SCH (21:41)
[2023-07-21] MEDS: ENOXAPARIN INJ 40 MG/0.4 ML SYR SQ SCH (21:41)
[2023-07-22] MEDS: PANTOprazole 40 MG TAB PO SCH ×2 (00:15→20:14)
[2023-07-22] MEDS: ONDANSETRON INJ 2 MG/ML 2 ML VIAL IV PRN (00:16)
[2023-07-22] MEDS: HYDROmorphone INJ 0.5 MG/0.5 ML SYR IV PRN ×11 (00:16→23:39)
[2023-07-22] MEDS: KETOROLAC 30 MG/ML VIAL IV PRN ×2 (00:16→23:38)
[2023-07-22] MEDS: ACETAMINOPHEN 1,000 MG/100 ML VIAL IV SCH ×3 (02:18→18:28)
[2023-07-22 02:46] LABS: Calcium 8.5 mg/dl (8.6-10.3); Magnesium 1.7 mg/dl (1.7-2.4); Potassium 4.2 mmol/L (3.5-5.1)
[2023-07-22 02:51] LABS: BUN Creatinine Ratio 7.9 (10-20); Creatinine Clr Calc Pharmacy 136.2 ml/min; Est GFR (African American) 147.6 ml/min; Est GFR (Non-African American) 127.3 ml/min
[2023-07-22 03:21] LABS: INR 1.1 (0.9-1.1); Prothrombin Time 11.9 Seconds (9.0-12.0)
[2023-07-22 03:37] LABS: Appearance Urine Clear (Clear); Bilirubin Urine Negative (Negative); Blood Urine Negative (Negative); Color Urine Yellow; Glucose Urine UA Negative (Negative); Ketones Urine Negative (Negative); Leukocyte Esterase Urine Negative (Negative); Nitrite Urine Negative (Negative); Protein Urine Negative (Negative); Specific Gravity Urine 1.015 (1.000-1.030); Urobilinogen Urine Negative (Negative); pH Urine 5.5 (4.5-7.5)
[2023-07-22 07:32] LABS: Basophils # (auto) 0.08 K/uL (0.00-0.20); Basophils % (auto) 1.2 %; Eosinophils % (auto) 7.2 %; Hematocrit (blood only) 25.5 % (37.0-47.0); Hemoglobin 9.4 g/dl (12.0-16.0); Immature Granulocytes # (auto) 0.03 K/uL (0.01-0.20); Immature Granulocytes % (auto) 0.4 %; Lymphocytes # (auto) 2.88 K/uL (1.20-3.40); Lymphocytes % (auto) 41.6 %; Mean Corpuscular Hemoglobin 30.6 pg (25.0-34.0); Mean Corpuscular Hgb Conc 36.9 g/dL (32.0-36.0); Mean Corpuscular Volume 83.1 fL (80.0-100.0); Mean Platelet Volume 9.3 fL (9.4-12.4); Monocytes # (auto) 0.99 K/uL (0.11-0.59); Monocytes % (auto) 14.3 %; Neutrophils # (auto) 2.44 K/uL (1.40-6.50); Neutrophils % (auto) 35.3 %; Nucleated RBC # (auto) 0.06 K/uL (0.00-0.12); Nucleated RBC % (auto) 0.9 %; Platelet Count 304 K/uL (130-400); RDW Standard Deviation 41.7 fL (36.4-46.3); Red Blood Count 3.07 M/uL (4.20-5.40); White Blood Count 6.92 K/ul (4.8-10.8)
[2023-07-22] MEDS: DOCUSATE SODIUM 100 MG CAP PO SCH ×2 (08:11→20:14)
[2023-07-22] MEDS: SERTRALINE HCL 50 MG TABLET PO SCH (08:11)
[2023-07-22] MEDS: FOLIC ACID 1 MG TAB PO SCH (08:11)
--- NOTE | 2023-07-22 08:22 | Hospitalist Progress Note ---
Date of Service July 22, 2023 Assessment & Plan (1) Sickle-cell disease with pain: (2) Sickle cell crisis: (3) Anxiety: (4) Asthma: Plan (1) Sickle-cell disease with pain Intractable LE and LBP pain since morning of 07/20 - no chest pain - no left subcostal (splenic) pain or enlargement - no SOB, no acute findings on CXR Pain similar to prior episodes of sickle cell crisis; episode likely triggered by recent cold/increased stress due to upcoming exams Patient normally gets Adakveo infusions; Dilaudid, 2 mg, PO, Q4h, PRN No leukocytosis; afebrile Negative hCG Acetaminophen 1000 mg IV q8h Dilaudid 0.5 mg IV q1h as needed for breakthrough pain, pain improving per the pt, likely d/c 07.23.23 If no improvement in pain, consider starting on ASSISTANT PROFESSOR NURSE EDUCATION (pt-controlled analgesic) Colace 100 mg p.o. BID (patient reports constipation developed in past); Zofran 4 mg IV q6h, PRN, nausea; QTc 467 Continue folic acid supplementation Lovenox for DVT PPx; monitor for hypercoagulable state Continuous telemetry monitoring - continuous pulse oximetry Continue LR fluid resuscitation at 80 mL/hr Patient follows with hematology in [place]; recommend that patient find local hematology, begin hydroxyurea as outpatient AM: CBC, BMP, mag, PT/INR (2) Anemia Hgb, 10.3 (admission); Hgb, 9.4 (AM labs) after > 3 L fluids - more likely hemodilution than hemolytic crisis; TBili, 1.2, close to baseline Reticulocytes, 6.8 H (on admission) - appropriate increase in reticulocytes, not consistent w/ aplastic crisis (3) Asthma CXR revealed NAF BioFire negative Clinically, patient denies SOB/chest pain Incentive spirometry Symbicort as needed for SOB/wheezing (4) Anxiety Patient was previously on 75 mg sertraline daily; however, her mother reports that she stopped it and then restarted at 25 mg daily Continue sertraline 25 mg p.o. daily while inpatient Plan Disposition: Admit to [facility] telemetry Full code Regular diet VTE PPx: Lovenox 40 mg SQ q24h Admission and Anticipated Discharge Date Admission Date: July 21, 2023 Subjective Chief Complaint: Pain (generalized) [facility] 23[facility] with PMH of sickle cell disease with crisis, asthma, and anxiety. She presents for constant lower extremity and lower back pain x1 day. The pain is located in her legs B/L, specifically at her knees, as well as her lower back. She describes the pain as constant, and characterizes it as a "bone and muscle pain". Pain radiates down into her feet; no radiation to the back or shoulder blades. Pain started yesterday morning on 07/20. She believes it was triggered by a 24-hour cold she had this week, as well as the stress she has been under due to her exam; this is usually what triggers her episodes of sickle cell crisis (acute pain syndrome). Reports this feels similar to past episodes of sickle cell crisis. She tried taking 2 tablets of 2 mg of home Dilaudid this morning, which helped the pain, but did not fully alleviate it. Reports that stress makes the pain worse; it is not worse with movements. Rates the pain 6/10 at present after receiving pain medicine in ED. Did not take any other medications this morning besides Dilaudid. Reports no recent changes in medicine. No sick contacts. No recent travel. No tick bites noticed. No recent physical trauma or injuries to the knees, lower extremities, or back. She follows with hematology in [place]. She reports she does not fully know what she takes in terms of medication, and that her mom usually manages it; however she notes that she might be taking folic acid 5 mg, PO, daily, which started 2 weeks ago. She also notes that she takes sertraline 75 mg daily, and this is not on her med list. She endorses alcohol use (most recently last weekend; she does not remember how much she had; but none in the past several days). Also endorses marijuana use, but no other recreational drug use. No tobacco use, smoking, or vaping. Mild hypotension of 103/58 at time of admission; vitals otherwise stable. ED course: NSS 1000 mL x 3 Hydromorphone IV (3.5mg total in the ED; 4.0mg taken at home, for a total of 7.5mg at time of admission) Acetaminophen 1000 mg IV Toradol 10 mg IV Hydromorphone 1 mg IV ROS: Patient endorses lower back pain, b/l leg pain, and numbness/tingling in the legs b/l. Patient denies fevers, chills, nightsweats, CP, SOB, abdominal pain, N/V/D, constipation, urinary s/s, and saddle anesthesia. Review of Systems Constitutional: + malaise; no fever and no chills Eyes: no diplopia and no worsening vision Respiratory: no cough, no dyspnea and no pain on inspiration Cardiovascular: no chest pain, no dyspnea and no palpitations Gastrointestinal: no abdominal pain, no nausea, no vomiting, no constipation and no diarrhea/loose stools Genitourinary: no dysuria and no hematuria Neurologic: + localized weakness (weakness in the LE s b/l), + tingling and + numbness Physical Exam Constitutional: WD/WN, vitals as above Respiratory: normal respiratory effort, lungs clear to auscultation Gastrointestinal (Abdomen): normal bowel sounds, soft, nontender, no hepatosplenomegaly Musculoskeletal: no cyanosis or clubbing, extremities motor strength 5/5 Neurologic: Motor/Sensory: normal movement and no sensory deficit Psychiatric: A+Ox3, euthymic affect Results & Data Results & Data Vital Signs (Past 12 Hours) Vital Signs Pulse Pulse Resp BP BP Pulse Ox O2 Del Method 07/22/23 04:30 76 16 109/65 100 07/22/23 04:30 109/65 07/22/23 04:26 80 18 115/64 98 Room Air 07/22/23 04:00 77 16 112/78 100 07/22/23 03:30 80 15 115/64 98 07/22/23 03:00 94 H 17 109/66 100 07/22/23 02:31 85 19 124/76 100 Room Air 07/22/23 02:00 88 22 132/86 100 07/22/23 01:30 83 20 68/44 L 07/22/23 01:00 71 20 99/54 L 82 L 07/22/23 00:18 77 22 108/55 L 100 Room Air 07/22/23 00:00 83 16 108/55 L 100 07/21/23 23:51 72 07/21/23 23:00 88 20 96 Room Air 07/21/23 22:30 74 13 100 Room Air 07/21/23 22:05 82 16 114/91 100 Room Air 07/21/23 22:00 85 15 100 Room Air 07/21/23 21:30 94 H 23 07/21/23 21:00 76 14 100 Room Air 07/21/23 20:30 83 17 100 Room Air
[2023-07-22] MEDS ORDERED: FOLIC ACID 1 MG TAB PO SCH ×2 (09:00)
[2023-07-22] MEDS: SODIUM CHLORIDE 0.45 % 1,000 ML IV SCH ×2 (10:23→18:58)
--- NOTE | 2023-07-22 12:28 | Hospitalist Progress Note ---
Date of Service July 22, 2023 Assessment & Plan (1) Sickle-cell disease with pain: Plan: - Lower extremity and lower back pain pain since the morning of 07/20 - She reports the pain is similar to prior episodes of sickle cell crisis; this episode was likely triggered by recent cold/increased stress due to upcoming exams - Patient gets monthly Adakveo infusions - ER started her on dilaudid 0.5 mg IV q1h as needed for pain and acetaminophen 1000 mg IV q8h - Also gave Colace 100 mg p.o. BID and zofran 4 mg IV q6h as needed for nausea - Continue folic acid supplementation - Lovenox given for DVT PPx and gentle fluid resuscitation at 80 mL/hr with LR - Had conversation with patient about their pain level - Patient wants to go home but patient will monitor their pain and check in about pain level at 2 or 3 pm - At that time, they will make the decision about continuing with dilaudid 0.5 mg IV q1h, starting on a OIL INSPECTOR, or going home and managing pain with oral 2mg dilaudid (2) Asthma: Plan: - CXR and BioFire were negative - Clinically, patient denies SOB/chest pain - Patient will continue symbicort as needed for SOB/wheezing (3) Anxiety: Plan: - Patient was previously on 75 mg sertraline daily; however, her mother reports that she stopped it and then restarted at 25 mg daily - Patient will continue on sertraline 25 mg p.o. daily while inpatient Plan Disposition: Admit to [facility] telemetry Full code Regular diet VTE PPx: Lovenox 40 mg SQ q24h Admission and Anticipated Discharge Date Admission Date: July 21, 2023 Subjective 23-year-old female with PMH of sickle cell anemia who reports increased leg and knee pain bilaterally and lower back pain that began on 07/20. This is consistent with her pain crises associated with sickle cell. 2 days ago, she had mild URI symptoms and then also yesterday, she was stressed because she was taking an exam. She states that these typically cause her to have a pain crisis. She also reported not eating for a full day before. She does have oral dilaudid at home (2mg) that she took twice on 07/21 with accompanying ibuprofen. There was no relief. For her sickle cell, patient does monthly Adakveo infusions and sees dampener at home at [facility]. This morning at 8:30 am, patient denied fevers, chills, chest pain, difficulty breathing, abdominal pain, vomiting, or diarrhea. She reported her pain to be 7/10. She has a slight nonproductive cough and mild nasal congestion. She is not afebrile, no leukocytosis. She has visited [facility] in June, May, and April as well for pain crises. Review of Systems Review of Systems: See HPI above Physical Exam Physical Exam: General: Sitting in bed, in no acute distress, appears fatigued during exam HEENT: normocephalic, atraumatic; moist mucus membrane; vision and hearing grossly intact Neck: supple; no lymphadenopathy; trachea midline Skin: warm, dry without signs of tenting; no cyanosis; no rashes, bruising, lesions, or erythema noted CV: RRR; S1/S2 normal; no murmurs/rubs/gallops Lungs: no acute respiratory distress; symmetrical chest wall expansion; CTAB; no wheezing ABD: Soft, NTP; BS present; no rebound/guarding; no ascites; no distention Back: Negative CVA tenderness; no rashes, bruises, lesions on the back; spine NTP LEs: Knees are nonerythematous, not warm to touch, not swollen; no sign of effusions Neuro: A&Ox3; somewhat tired (likely secondary to Dilaudid); fluent speech Results & Data Results & Data Vital Signs (Past 12 Hours) Vital Signs Pulse Pulse Resp BP BP Pulse Ox O2 Del Method 07/22/23 04:30 76 16 109/65 100 07/22/23 04:30 109/65 07/22/23 04:26 80 18 115/64 98 Room Air 07/22/23 04:00 77 16 112/78 100 07/22/23 03:30 80 15 115/64 98 07/22/23 03:00 94 H 17 109/66 100 07/22/23 02:31 85 19 124/76 100 Room Air 07/22/23 02:00 88 22 132/86 100 07/22/23 01:30 83 20 68/44 L 07/22/23 01:00 71 20 99/54 L 82 L
--- NOTE | 2023-07-22 19:10 | Billing Data ---
Date of Service July 22, 2023 Coding Level of Care Code 83845 SUB INP/OBS CARE
[2023-07-22] MEDS: ENOXAPARIN INJ 40 MG/0.4 ML SYR SQ SCH (20:14)
[2023-07-22] MEDS: SENNA 8.6 MG TAB PO SCH (21:20)
[2023-07-23] MEDS: HYDROmorphone INJ 0.5 MG/0.5 ML SYR IV PRN ×6 (01:32→11:16)
[2023-07-23] MEDS: ACETAMINOPHEN 1,000 MG/100 ML VIAL IV SCH ×2 (02:53→09:31)
[2023-07-23] MEDS: SODIUM CHLORIDE 0.45 % 1,000 ML IV SCH ×2 (03:49→13:17)
[2023-07-23 07:29] LABS: Basophils # (auto) 0.11 K/uL (0.00-0.20); Basophils % (auto) 1.1 %; Eosinophils # (auto) 0.81 K/uL (0.00-0.50); Eosinophils % (auto) 8.4 %; Hematocrit (blood only) 26.3 % (37.0-47.0); Hemoglobin 9.9 g/dl (12.0-16.0); Immature Granulocytes # (auto) 0.03 K/uL (0.01-0.20); Immature Granulocytes % (auto) 0.3 %; Lymphocytes # (auto) 2.23 K/uL (1.20-3.40); Lymphocytes % (auto) 23.1 %; Mean Corpuscular Hemoglobin 30.7 pg (25.0-34.0); Mean Corpuscular Hgb Conc 37.6 g/dL (32.0-36.0); Mean Corpuscular Volume 81.4 fL (80.0-100.0); Mean Platelet Volume 9.4 fL (9.4-12.4); Monocytes # (auto) 1.01 K/uL (0.11-0.59); Monocytes % (auto) 10.5 %; Neutrophils # (auto) 5.46 K/uL (1.40-6.50); Neutrophils % (auto) 56.6 %; Nucleated RBC # (auto) 0.06 K/uL (0.00-0.12); Nucleated RBC % (auto) 0.6 %; Platelet Count 318 K/uL (130-400); RDW Coefficient of Variation 13.8 % (11.5-14.5); RDW Standard Deviation 40.3 fL (36.4-46.3); Red Blood Count 3.23 M/uL (4.20-5.40); White Blood Count 9.65 K/ul (4.8-10.8)
[2023-07-23 07:38] LABS: Anion Gap 3 (3-11); BUN Creatinine Ratio 5.5 (10-20); Blood Urea Nitrogen 3 mg/dl (6-23); Calcium 8.7 mg/dl (8.6-10.3); Carbon Dioxide 27 mmol/L (21-32); Chloride 108 mmol/L (98-107); Est GFR (African American) > 150.0 ml/min; Est GFR (Non-African American) 133.1 ml/min; Glucose 95 mg/dl (70-99(Fasting)); Magnesium 1.6 mg/dl (1.7-2.4); Potassium 3.5 mmol/L (3.5-5.1); Sodium 138 mmol/L (136-145)
[2023-07-23] MEDS ORDERED: MAGNESIUM SULFATE / D5W 1 GM/100 ML BAG IV ONE (08:26)
[2023-07-23] MEDS: FOLIC ACID 1 MG TAB PO SCH (08:51)
[2023-07-23] MEDS: DOCUSATE SODIUM 100 MG CAP PO SCH (08:51)
[2023-07-23] MEDS: SERTRALINE HCL 50 MG TABLET PO SCH (08:52)
[2023-07-23] MEDS: ONDANSETRON INJ 2 MG/ML 2 ML VIAL IV PRN (09:31)
--- NOTE | 2023-07-23 13:31 | Discharge Summary ---
Date of Service July 23, 2023 Admission HPI Per Admitting Provider 23-year-old female with PMH of sickle cell anemia who reports increased leg and knee pain bilaterally and lower back pain that began on 07/20. This is consistent with her pain crises associated with sickle cell. 3 days ago, she had mild URI symptoms and then also on 07/21, she was stressed because she was taking an exam. She states that these typically cause her to have a pain crisis. She does have oral dilaudid at home (2mg) that she took twice on 07/21 with accompanying ibuprofen. There was no relief. For her sickle cell, patient does monthly Adakveo infusions and sees shuttle spotter at home at [facility]. On 07/22, she was given dilaudid 0.5 mg IV q1h as needed for pain, started on Colace 100 mg p.o. BID due to constipation, Zofran 4 mg IV q6h as needed for nausea, and fluid resuscitation at 80 mL/hr. On 07/22, she reported needing the dilaudid roughly every 1.5 hours. Today, at 8:30 am, she reported her pain to be roughly a 5/10 in comparison to a 8/10 yesterday. She also reported being very tired but had received dilaudid 45 minutes before. Patient reported that she her pain has been manageable and she wants to go home. She also reported she has been asking for pain medications every 3-4 hours and thinks oral dilaudid at home would be enough. When checking with the nurse about the dilaudid, the pain meds were given yesterday at 4:40, 8:14, 9:19, and 11:39. Today, they were given at 1:32 am, 2:54 am, 5:45 am, and 7:45 am, so 1.5 to 3 hour intervals. She also reports URI symptoms that started yesterday afternoon; she thinks these may be the same as the URI she had 3 days ago. She said that a sore throat started yesterday afternoon and she has nose congestion. She is not coughing and was able to eat dinner. She denies fevers, chills, chest pain, difficulty breathing, abdominal pain, vomiting, or diarrhea. She is not afebrile, no leukocytosis. Principal Diagnosis 1) Sickle cell crisis Discharge Exam General: sitting in bed, in no acute distress, appears fatigued during exam HEENT: normocephalic, atraumatic, vision and hearing grossly intact; tonsilar exudate noted Neck: supple, no lymphadenopathym trachea midline Skin: warm, dry without signs of tenting, no cyanosis, no rashes, bruising, lesions, or erythema noted CV: RRR, S1/S2 normal, no murmurs/rubs/gallops Lungs: no acute respiratory distress, symmetrical chest wall expansion, CTAB, no wheezing ABD: soft, NTP, BS present, no rebound/guarding Back: no rashes, bruises, lesions on the back LEs: knees are nonerythematous, not warm to touch, no sign of effusions Neuro: A&Ox3, somewhat tired (likely secondary to Dilaudid), fluent speech Discharge Data Allergies Allergy/AdvReac Type Severity Reaction Status Date / Time peanut Allergy Intermediate ITCHY HIVES Verified 07/21/23 12:44 Consultations 07/21/23 13:12 ED Decision to Admit Stat Hospital Course (1) Sickle-cell disease with pain: - Lower extremity and lower back pain pain since the morning of 07/20 - She reports the pain is similar to prior episodes of sickle cell crisis; this episode was likely triggered by recent cold/increased stress due to upcoming exams - Patient gets monthly Adakveo infusions - ER started her on dilaudid 0.5 mg IV q1h as needed for pain and acetaminophen 1000 mg IV q8h - Also gave Colace 100 mg p.o. BID and zofran 4 mg IV q6h as needed for nausea - Continue folic acid supplementation - Lovenox given for DVT PPx and gentle fluid resuscitation at 80 mL/hr with LR - Had conversation with patient about their pain level - Patient really does want to go home but patient still seems to be asking for the dilaudid every 1.5-3 hours - Had conversation with patient about continuing with dilaudid 0.5 mg IV q1h inpatient, starting on a CAE ENGINEER, or going home and managing pain with oral 2mg dilaudid - Patient would like to go home with oral 2 mg dilaudid; will order more to supplement dilaudid they have at home - Had conversation with patient about increasing fluid intake at home to avoid dehydration; emphasized importance of getting 60 ounces of fluid every day, especially when sick; also emphasized that caffeinated beverages such as coffee or Celsius do not count towards fluid and that when patient drinks alcohol, they must drink more fluid (2) Sore throat: - Patient is positive for sore throat and congestion; negative for cough - Positive on exam for tonsilar exudate - CXR and Biofire were negative - Ordered strep swab and suggested patient try supportive care for symptoms - If strep swab comes back positive, will prescribe course of amoxicillin (3) Asthma: - Patient denies SOB and chest pain - Patient will continue symbicort as needed for SOB/wheezing (4) Anxiety: - Continue sertraline 25 mg po daily Plan Code: full Discharge: home Nutrition: normal Total Time Total Time Spent Total Time Spent (In Minutes): As reported by attending Discharge Plan Discharge Items Patient Disposition: Home - Self-Care Reason For Visit: INTRACTABLE LE PAIN; SICKLE CELL CRISIS Discharge Diagnosis: sickle cell pain crisis, vasoocclusive crisis Activity: Resume your previous activity Non-emergency contact: Primary Care Provider Call non-emergency contact if: you have any medication questions and you have a fever Follow-up/Referrals: [facility] [Primary Care Provider] - (PLEASE FOLLOW UP WITH [facility] IN 7-10 DAYS.) Diet: Regular Addtl Attending Provider Instructions: You were admitted to the hospital for sickle cell pain crisis/vasoocclusive crisis. You were treated with IV fluids, hydrocodone, Senokot, docusate, and home medications. A discharge summary will be sent to your primary care physician to ensure continuity of care. Please bring this discharge summary with you to your next office appointment so that your provider can review it at that time. Follow-up appointments: We have requested a follow-up appointment with your primary care physician within one week of discharge. Please call their office if you do not hear from them. Keep all your follow-up appointments as already scheduled. If you cannot make an appointment, notify your provider. We will call you and send in a prescription for you to your pharmacy, if your Strep B test returns a positive result. In the meantime manage your sore throat with menthol or other soothing cough drops/lozenges. Medications: Your medication list has been reviewed and reconciled upon discharge to ensure accuracy and continuity of care. An updated list of all your medications is included with your hospital discharge paperwork. Please review this list closely, and make note of any changes. We sent a new medication called hydromorphone to your pharmacy. Take hydromorphone 2mg, one tablet, Q4h, as needed. Take your medications as instructed; do not skip a dose of your medicines. Make sure all of your doctors know every medicine you are taking (including [id number] medicines, vitamins, and supplements). Call your primary care provider before taking any new medicines (including [id number] medicines, vitamins, and supplements), because some of these may interact with your current medications, or may make your symptoms worse. Tell your primary care provider if you cannot afford your medications. CONTACT YOUR PRIMARY CARE PROVIDER if you experience any of the following: continued, worsening, or recurring leg pain, arm pain, finger pain chest pain, shortness of breath, left subcostal (splenic) pain Difficulty following your treatment plan, or difficulty taking medications CALL 911 OR GO TO THE EMERGENCY DEPARTMENT if you experience any of the following: Sudden, severe abdominal pain or nausea/vomiting Severe chest pain, or chest pain that radiates (moves) to your jaw or arm Sudden, severe shortness of breath or difficulty breathing Thank you for allowing us to participate in your care Pending Studies at Discharge: Yes Studies:: Strep A PCR test Stand-Alone Forms: [facility] [place], Smoking Cessation Medications and DC Order Prescriptions: Continued cetirizine 10 mg tablet 10 mg PO HS PRN (Reason: Congestion) acetaminophen 325 mg tablet 650 mg PO DIRECTED PRN (Reason: Pain) budesonide-formoterol [Symbicort] 80-4.5 mcg/actuation Hfa Aerosol Inhaler 2 puff INHALATION BID PRN (Reason: Shortness Of Breath Or Wheezing) Adakveo 10 mg/mL Solution See Rx Instructions .ROUTE .COMPLEX Rx Instructions: infusion monthly per pt folic acid 1 mg tablet 5 mg PO DAILY sertraline 25 mg PO DAILY hydromorphone 2 mg tablet 2 mg PO Q4H PRN (Reason: pain) Qty: 20 0RF Discharge Orders: Discharge Order (Routine); Ordered 07/23/23 Ordered By: Jacky Kim Admission Data Admit Date/Time: 07/21/23 13:59 Attending Provider: Patrick Robin Admit Provider: Tony Barker Primary Care Provider: [facility] Other Providers: Tony Barker Other Interventions: Discharge Summary Assessment (RN) Last Done: 07/23/23 16:24 Supervising Physician Co-Signing Physician Notes I personally examined the patient and verified all knox points of history and exam, discussed case, and agree with decision making with Omid BELTRAN and Dr Kim Feeling better overall, feeling up to going home as far as pain control. Still has a sore throat. Congestion. vitals noted nad heent nc at mmm mild tonsilar hypertrophy mild exudate no real erythema, mildly (+) anterior cervical nodes. breathing unlabored no accessory muscles good effort skin no rashes no pallor or icterus Sickle cell acute pain crisisprobably brought on by URI, stress, and dehydration. Safe/stable for home. Discussed that the fact that she loses her appetiteand therefore loses p.o. intake whenever she starts to get sick may be part of why she has been having more recurrent sickle cell exacerbationsencouraged her to track her p.o. fluid intake and have a minimum of 60 ounces a day of noncaffeinated nonalcoholic fluid. Refilled hydromorphone. Outpatient follow-up. Upper respiratory infectionvery likely viral, pharyngitis portion is likely viral but has a little bit of features somewhat consistent with strepdiscussed with patient, will swab and treat if positive. If negative, almost certainly all viral. Stable for home, otherwise as above.
--- NOTE | 2023-07-23 16:35 | Billing Data ---
Date of Service July 23, 2023 Coding Level of Care Code 68078 IN/OBS DISCH 30 MIN/LESS
== END 2023-07-23 17:30 | disposition home or self-care (01) | DRG 812 ==
LOC: ED 07:02 → EDINP 13:59 → SUATTDRO 13:59 → 2N 17:11

== ENCOUNTER 2023-09-16 01:15 | Inpatient (IN) ==
[2023-09-16] MEDS ORDERED: PANTOprazole 40 MG in SYRINGE 0 ML IV ONE (01:23)
[2023-09-16] MEDS ORDERED: ONDANSETRON INJ 2 MG/ML 2 ML VIAL IV STA (01:23)
[2023-09-16] MEDS ORDERED: FAMOTIDINE 20MG IV PUSH 20 MG/5 ML SYR IV STA (01:23)
[2023-09-16] MEDS ORDERED: SODIUM CHLORIDE 0.9% 1,000 ML IV SCH (01:30)
--- NOTE | 2023-09-16 01:30 | Emergency Department Note ---
History of Present Illness General Chief complaint: Pain (Generalized) Stated complaint: SICKLE CELL PAIN Time Seen by Provider: 09/16/23 01:22 History of Present Illness Maximum Pain Intensity: 8 This 23-year-old with sickle cell presents to the ER complaining of sickle cell crisis. Patient states everything hurts. She tried her Dilaudid at home with no relief. Her brother recently had the flu. Patient denies chest pain, dyspnea, abdominal pain, urinary symptoms, vomiting, diarrhea. Patient states she was too weak to go to class this week. Home Medications Medication Instructions Recorded Confirmed Type cetirizine 10 mg tablet 10 mg PO HS PRN Congestion 04/18/20 07/21/23 History acetaminophen 325 mg tablet 650 mg PO DIRECTED PRN Pain 12/13/21 07/21/23 History crizanlizumab-tmca 10 mg/mL See Rx Instructions .Route .COMPLEX 06/30/22 07/21/23 History intravenous solution (Adakveo) budesonide-formoterol HFA 80 2 puff inhalation BID PRN 12/14/22 07/21/23 History mcg-4.5 mcg/actuation aerosol Shortness Of Breath Or Wheezing inhaler (Symbicort) folic acid 1 mg tablet 5 mg PO DAILY 05/25/23 07/21/23 History sertraline 25 mg PO DAILY 07/21/23 07/21/23 History hydromorphone 2 mg tablet 2 mg PO Q4H PRN pain #20 tabs 07/23/23 Rx Allergies Allergy/AdvReac Type Severity Reaction Status Date / Time peanut Allergy Intermediate ITCHY HIVES Verified 07/21/23 12:44 Past Med/Surg History Medical History Back pain Parainfluenza Sickle cell crisis Anxiety Seasonal allergies Sickle cell anemia with crisis COVID-19 Constipation Influenza A Leukocytosis Pneumonia Sepsis Splenomegaly Abnormal LFTs Transaminitis Sickle cell crisis Vaginal ulceration Sepsis Pyelonephritis Asthma Sickle cell anemia Surgical History No pertinent past surgical history Family History Brother Sickle cell anemia Social History Smoking Status: Never smoker Second Hand Exposure: No; Do You Dip or Chew Tobacco: No; Hx Alcohol Use: Yes Alcohol type: wine and hard liquor Alcohol Intake Frequency: Monthly or Less Alcohol Intake Frequency Comment: 1 drink Hx Substance Use: Yes Preferred Language: Romanian Communication Ability: Effective Car Manager Required: No Beliefs That Will Affect Care: None marital status: Single Current Living Situation: Other Current Living Situation Comment: roomates Feels Safe at Home: Yes Assistive Devices: None Review of Systems A total of 10 systems reviewed and were otherwise negative Physical Exam Vital Signs Vital Signs - 24 hr 09/16/23 01:19 09/16/23 01:59 Temperature 36.6 C Temperature Source Temporal Artery Scan Pulse Rate 103 H 88 Respiratory Rate 20 18 Respiratory Effort / Characteristics Non-Labored Respiratory Depth Normal Blood Pressure 123/71 Blood Pressure Mean 88 Pulse Oximetry 100 97 Oxygen Delivery Method Room Air Room Air Sepsis Recent Fever Within 48 Hours No Sepsis New/Unexplained Change in Mental Status No Sepsis Action Taken by Nursing No Action Required VITALS: Vitals are noted on the nurse's note and reviewed by myself. Vital signs stable. GENERAL: Pleasant patient, in no acute distress, nondiaphoretic, well-developed well-nourished. SKIN: Capillary reflex less than 2 seconds. HEENT: Normocephalic. PERRLA. EOMI. Nares patent. Mucous membranes moist. Neck is supple without nuchal rigidity. HEART: Regular rate and rhythm LUNGS: Clear to auscultation bilaterally without wheezes, rales or rhonchi. No retractions or accessory muscle use. ABDOMEN: Positive bowel sounds x 4. Normal tympanic percussion. Soft, nontender, without masses or organomegaly. Lou sign negative. No guarding or rebound tenderness. no CVA tenderness MUSCULOSKELETAL: No gross musculoskeletal defects. NEURO: Patient was alert and oriented to person place and time. No focal neurological deficits. Course Administered Medications Hydromorphone HCl (Hydromorphone Inj 0.5 Mg/0.5 Ml Syr) 0.5 mg IV Q15M PRN PRN Reason: Pain Stop: 09/30/23 01:22 Last Admin: 09/16/23 02:33 Dose: 0.5 mg Documented By: Admin: 09/16/23 01:43 Dose: 0.5 mg Documented By: OTF Discontinued Medications Sodium Chloride (Nss) 1,000 mls @ 999 mls/hr IV .Q1H1M ROBYN Stop: 09/16/23 02:30 Last Admin: 09/16/23 01:43 Dose: 999 mls/hr Documented By: OTF Famotidine (Pepcid 20mg Iv Push) 20 mg in 5 mls @ 2.5 mls/min IV NOW STA Stop: 09/16/23 01:24 Last Admin: 09/16/23 01:44 Dose: 2.5 mls/min Documented By: OTF Pantoprazole Sodium 40 mg/ (Syringe) 10 mls @ 5 mls/min IV NOW ONE Stop: 09/16/23 01:24 Last Admin: 09/16/23 01:55 Dose: 5 mls/min Documented By: OTF Ondansetron HCl (Ondansetron Inj 2 Mg/Ml 2 Ml Vial) 4 mg IV NOW STA Stop: 09/16/23 01:24 Last Admin: 09/16/23 01:44 Dose: 4 mg Documented By: OTF Medical Decision Making Medical Records Attestation: I reviewed the patient's medical records. Home Medications Current Medication List: was personally reviewed by me Laboratory Data Attestation: I reviewed the patient's lab results. 09/16/23 01:50 09/16/23 02:08 Lab Results 09/16/23 Range/Units 01:45 Adenovirus (PCR) Not Detected (NotDetected) B. pertussis DNA (PCR) Not Detected (NotDetected) B.parapertussis DNA PCR Not Detected (NotDetected) C. pneumoniae DNA (PCR) Not Detected (NotDetected) Coronavirus OC43 (PCR) Not Detected (NotDetected) Coronavirus HKU1 (PCR) Not Detected (NotDetected) Coronavirus 229E (PCR) Not Detected (NotDetected) SARS-CoV-2 (PCR) Not Detected (NotDetected) Coronavirus NL63 (PCR) Not Detected (NotDetected) Human Metapneumovir PCR Not Detected (NotDetected) Influenza Type A (PCR) Not Detected (NotDetected) Influenza Type B (PCR) Not Detected (NotDetected) M. pneumoniae (PCR) Not Detected (NotDetected) Parainfluenza 1 (PCR) Not Detected (NotDetected) Parainfluenza 2 (PCR) Not Detected (NotDetected) Parainfluenza 3 (PCR) Not Detected (NotDetected) Parainfluenza 4 (PCR) Not Detected (NotDetected) RSV (PCR) Not Detected (NotDetected) Entero/Rhino (PCR) Not Detected (NotDetected) Imaging Data Attestation: I personally reviewed and interpreted this imaging study as follows: MDM Narrative Prior records/ancillary studies reviewed and summarized above. Nursing notes reviewed. Additional history obtained from nursing The patient's history was concerning for sickle cell crisis. Differential diagnosis: Etiologies such as sickle cell crisis, metabolic, infection, hypo/hyperglycemia, electrolyte abnormalities, cardiac sources, intracerebral event, toxicologic, neurologic, as well as others were entertained. Physical examination: As above. ER treatment provided: IV Lock An order was placed for continuous cardiac monitoring. The monitor shows a rate of 60-100 with a sinus rhythm per my interpretation. IV fluids, Dilaudid, Zofran, Pepcid, Protonix were ordered On reassessment the patient felt better. Diagnostics interpretation by me: The labs Independently Interpreted by myself revealed mild anemia, elevated retic count Negative hCG Imaging studies: Chest x-ray with no acute consolidation, pneumothorax or free air per my independent interpretation Consultation: A consultation was placed with the hospitalist. The case was discussed and diagnostics were reviewed. The patient was evaluated in the ER for further treatment. Exam and history seem consistent with sickle cell crisis. Patient was medicated as above. She still moderate amount of pain. Medicine was consulted and the case was discussed. She will be admitted to the medical service for further evaluation and treatment. Clear x-ray. Negative urine. By the evaluation outlined above emergent etiologies such as electrolyte abnormalities, cardiac sources, intracerebral event, toxologic, neurologic, abnormalities blood glucose, metabolic, as well as others were deemed relatively unlikely. The pt informed about the findings as listed above. All questions were answered and pleased with the treatment. The chart was completed utilizing [employer] voice recognition software. Grammatical errors, random word insertions, pronoun errors, and incomplete sentences are an occassional consequence of this system due to software limitations, ambient noise, and hardware issues. Any formal questions or concerns about the content, text, or information contained within the body of this dictation should be directly addressed to the physician medical support assistant for clarification. Impression & Plan Sickle cell crisis Discharge Plan Visit Data Chief Complaint: Pain (Generalized) Stated Complaint: SICKLE CELL PAIN ED Provider: Nicolasa Arrington ED Midlevel Provider: Fallon Bains Discharge Problem: Sickle cell crisis Patient Disposition: Admitted As Inpatient Condition: Good Forms Stand Alone Forms: [employer] Prescriptions Prescriptions: No Action cetirizine 10 mg tablet 10 mg PO HS PRN (Reason: Congestion) acetaminophen 325 mg tablet 650 mg PO DIRECTED PRN (Reason: Pain) budesonide-formoterol [Symbicort] 80-4.5 mcg/actuation Hfa Aerosol Inhaler 2 puff INHALATION BID PRN (Reason: Shortness Of Breath Or Wheezing) Adakveo 10 mg/mL Solution See Rx Instructions .ROUTE .COMPLEX Rx Instructions: infusion monthly per pt folic acid 1 mg tablet 5 mg PO DAILY sertraline 25 mg PO DAILY hydromorphone 2 mg tablet 2 mg PO Q4H PRN (Reason: pain) Qty: 20 0RF Referrals Referrals: [facility] [Primary Care Provider] -
[2023-09-16] MEDS: HYDROmorphone INJ 0.5 MG/0.5 ML SYR IV PRN ×5 (01:43→11:48)
[2023-09-16] MEDS ORDERED: ACETAMINOPHEN 1000 MG/100 ML IV IV ONE (03:50)
[2023-09-16] MEDS ORDERED: HYDROmorphone INJ 1 MG/ML SYRINGE ONE (03:50)
--- NOTE | 2023-09-16 03:52 | History & Physical Report ---
Date of Service September 16, 2023 Assessment & Plan (1) Sickle cell crisis: Plan: 23yo female presenting with several days of acute pain consistent with sickle cell acute pain crisis. Patient is afebrile, no evidence of acute chest syndrome. -Admit to medical -Dilaudid 0.5 - 1mg IV q 4 hours as needed for ongoing pain -Supplemental O2 -Hydration with 1/2 NSS at 80mL/hr x 2L Tylenol PRN -Continue PO Folic Acid -PRN Narcan -Zofran PRN -Miralax PRN History of Present Illness Chief Complaint: pain Primary Care Provider: [facility] Kaylan Armenta is a 23yo female with sickle cell anemia presenting with acute pain crisis. Patient reports several days of ongoing pain of the bilateral knees and back. Pain has been severe. She has been taking Dilaudid 2mg PO q 6 hours at home with minimal improvement in pain. She has also had significant generalized weakness and fatigue. She reports that she has been too fatigued to go to class over the last several days. She has had a poor appetite and decreased oral intake as well as occasional nausea and dizziness. She denies fever, chills, chest pain, cough or shortness of breath. No additional complaints at this time. In the ER she is afebrile, HD stable ER Course: Dilaudid 0.5mg IV Acetaminophen 1gm IV ordered - not yet given Dilaudid 1gm IV ordered - not yet given Allergies Allergy/AdvReac Type Severity Reaction Status Date / Time peanut Allergy Intermediate ITCHY HIVES Verified 07/21/23 12:44 Home Medications Medication Instructions Recorded Confirmed Type cetirizine 10 mg tablet 10 mg PO HS PRN Congestion 04/18/20 07/21/23 History acetaminophen 325 mg tablet 650 mg PO DIRECTED PRN Pain 12/13/21 07/21/23 History crizanlizumab-tmca 10 mg/mL See Rx Instructions .Route .COMPLEX 06/30/22 07/21/23 History intravenous solution (Adakveo) budesonide-formoterol HFA 80 2 puff inhalation BID PRN 12/14/22 07/21/23 History mcg-4.5 mcg/actuation aerosol Shortness Of Breath Or Wheezing inhaler (Symbicort) folic acid 1 mg tablet 5 mg PO DAILY 05/25/23 07/21/23 History sertraline 25 mg PO DAILY 07/21/23 07/21/23 History hydromorphone 2 mg tablet 2 mg PO Q4H PRN pain #20 tabs 07/23/23 Rx Past Med/Surg History Medical History Back pain Parainfluenza Sickle cell crisis Anxiety Seasonal allergies Sickle cell anemia with crisis COVID-19 Constipation Influenza A Leukocytosis Pneumonia Sepsis Splenomegaly Abnormal LFTs Transaminitis Sickle cell crisis Vaginal ulceration Sepsis Pyelonephritis Asthma Sickle cell anemia Surgical History No pertinent past surgical history Family History Brother Sickle cell anemia Social History Smoking Status: Never smoker Second Hand Exposure: No; Do You Dip or Chew Tobacco: No; Hx Alcohol Use: Yes Alcohol type: wine and hard liquor Alcohol Intake Frequency: Monthly or Less Alcohol Intake Frequency Comment: 1 drink Hx Substance Use: Yes Preferred Language: Estonian Communication Ability: Effective 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 Beliefs That Will Affect Care: None marital status: Single Current Living Situation: Other Current Living Situation Comment: roomates Feels Safe at Home: Yes Assistive Devices: None Review of Systems Review of Systems: All systems reviewed & are unremarkable except as noted in HPI & below Physical Exam Physical Exam: General: patient resting comfortably, NAD, non-toxic in appearance, AA&O x 4 Skin: warm, dry, intact, no rashes or lesions HEENT: NC/AT, PERRL, EOMI, anicteric sclera, conjunctiva without injection, e xternal ear normal to inspection and nontender, nares patent, moist mucus membranes, dentition intact, no oropharyngeal lesions, neck supple, trachea midline, no LAD, no thyromegaly, no JVD Heart: +S1/S2, regular, no m/r/g Lungs: equal air entry bilaterally, no rales/rhonchi/wheezes Abd: +BS, soft, NT/ND, no masses/organomegaly/ascites Ext: warm, 2+ pulses in UE/LE bilaterally, no clubbing/cyanosis or edema Neuro: nonfocal, patient AA&O x 4, speech intact, no facial droop, moving all extremities on command with equal strength 5/5 Results & Data Results & Data Vital Signs (Past 12 Hours) Vital Signs Temp Pulse Resp BP Pulse Ox O2 Del Method 09/16/23 01:59 88 18 97 Room Air 09/16/23 01:19 36.6 C 103 H 20 123/71 100 Room Air Laboratory Results Lab Results 09/16/23 Range/Units 01:45 Adenovirus (PCR) Not Detected (NotDetected) B. pertussis DNA (PCR) Not Detected (NotDetected) B.parapertussis DNA PCR Not Detected (NotDetected) C. pneumoniae DNA (PCR) Not Detected (NotDetected) Coronavirus OC43 (PCR) Not Detected (NotDetected) Coronavirus HKU1 (PCR) Not Detected (NotDetected) Coronavirus 229E (PCR) Not Detected (NotDetected) SARS-CoV-2 (PCR) Not Detected (NotDetected) Coronavirus NL63 (PCR) Not Detected (NotDetected) Human Metapneumovir PCR Not Detected (NotDetected) Influenza Type A (PCR) Not Detected (NotDetected) Influenza Type B (PCR) Not Detected (NotDetected) M. pneumoniae (PCR) Not Detected (NotDetected) Parainfluenza 1 (PCR) Not Detected (NotDetected) Parainfluenza 2 (PCR) Not Detected (NotDetected) Parainfluenza 3 (PCR) Not Detected (NotDetected) Parainfluenza 4 (PCR) Not Detected (NotDetected) RSV (PCR) Not Detected (NotDetected) Entero/Rhino (PCR) Not Detected (NotDetected) PG Care Time/CCT Total # of Minutes Spent Total Time Spent with Patient: Total time spent is greater than 50% in coordination of care (as documented) at patient's floor/unit and/or counseling patient: Coding Level of Care Code 51157 INT INP/OBS CARE 2/55MIN Diagnoses Sickle cell crisis D57.00
[2023-09-16 03:55] LABS: Adenovirus PCR Not Detected (NotDetected); Bordetella parapertussis PCR Not Detected (NotDetected); Bordetella pertussis PCR Not Detected (NotDetected); Chlamydia pneumoniae PCR Not Detected (NotDetected); Coronavirus 229E PCR Not Detected (NotDetected); Coronavirus CoV-2 (COVID19)PCR Not Detected (NotDetected); Coronavirus HKU1 PCR Not Detected (NotDetected); Coronavirus NL63 PCR Not Detected (NotDetected); Coronavirus OC43PCR Not Detected (NotDetected); Human Metapneumovirus PCR Not Detected (NotDetected); Influenza A PCR Not Detected (NotDetected); Influenza B PCR Not Detected (NotDetected); Mycoplasma pneumoniae PCR Not Detected (NotDetected); Parainfluenza Virus 1 PCR Not Detected (NotDetected); Parainfluenza Virus 2 PCR Not Detected (NotDetected); Parainfluenza Virus 3 PCR Not Detected (NotDetected); Parainfluenza Virus 4 PCR Not Detected (NotDetected); Respiratory Syncytial VirusPCR Not Detected (NotDetected); Rhinovirus/Enterovirus PCR Not Detected (NotDetected)
[2023-09-16 04:22] LABS: Basophils # (auto) 0.14 K/uL (0.00-0.20); Basophils % (auto) 1.4 %; Eosinophils # (auto) 0.26 K/uL (0.00-0.50); Eosinophils % (auto) 2.6 %; Hematocrit (blood only) 27.8 % (37.0-47.0); Hemoglobin 10.3 g/dl (12.0-16.0); Immature Granulocytes # (auto) 0.04 K/uL (0.01-0.20); Immature Granulocytes % (auto) 0.4 %; Lymphocytes # (auto) 3.07 K/uL (1.20-3.40); Lymphocytes % (auto) 30.5 %; Mean Corpuscular Hemoglobin 30.2 pg (25.0-34.0); Mean Corpuscular Hgb Conc 37.1 g/dL (32.0-36.0); Mean Corpuscular Volume 81.5 fL (80.0-100.0); Mean Platelet Volume 9.6 fL (9.4-12.4); Monocytes # (auto) 1.13 K/uL (0.11-0.59); Monocytes % (auto) 11.2 %; Neutrophils # (auto) 5.43 K/uL (1.40-6.50); Neutrophils % (auto) 53.9 %; Nucleated RBC # (auto) 0.05 K/uL (0.00-0.12); Nucleated RBC % (auto) 0.5 %; Platelet Count 383 K/uL (130-400); RDW Coefficient of Variation 13.9 % (11.5-14.5); RDW Standard Deviation 40.8 fL (36.4-46.3); Red Blood Count 3.41 M/uL (4.20-5.40); Reticulocyte % 4.25 % (0.50-2.00); White Blood Count 10.07 K/ul (4.8-10.8)
[2023-09-16 04:28] LABS: Pregnancy Test, Serum Negative (Negative)
[2023-09-16 04:41] LABS: Alanine Aminotransferase 13 U/L (7-52); Albumin Globulin Ratio 1.8 (0.9-2); Albumin Level 4.8 gm/dl (3.4-5.0); Alkaline Phosphatase 49 U/L (34-104); Anion Gap 8 (3-11); Aspartate Aminotransferase 20 U/L (13-39); BUN Creatinine Ratio 11.9 (10-20); Bilirubin,Total 1.7 mg/dl (0.2-1.0); Blood Urea Nitrogen 7 mg/dl (6-23); Calcium 9.9 mg/dl (8.6-10.3); Carbon Dioxide 22 mmol/L (21-32); Chloride 107 mmol/L (98-107); Creatine Kinase 97 U/L (26-192); Creatinine Clr Calc Pharmacy 145.4 ml/min; Est GFR (African American) > 150.0 ml/min; Est GFR (Non-African American) 130.1 ml/min; Globulin 2.6 gm/dl (2.5-4.0); Glucose 95 mg/dl (70-99(Fasting)); Magnesium 1.7 mg/dl (1.7-2.4); Potassium 3.6 mmol/L (3.5-5.1); Sodium 137 mmol/L (136-145); Thyroid Stimulating Hormone 2.828 uIu/ml (0.300-4.500); Total Protein 7.4 gm/dl (6.0-8.3)
[2023-09-16] MEDS ORDERED: HYDROmorphone INJ 0.5 MG/0.5 ML SYR IV PRN ×2 (06:26→07:59)
[2023-09-16] MEDS ORDERED: ACETAMINOPHEN 325 MG TAB PO PRN (06:26)
[2023-09-16] MEDS ORDERED: NALOXONE HCL 0.4 MG/1 ML VIAL/CARP IV PRN (06:26)
--- NOTE | 2023-09-16 07:27 | XRay Report ---
SINGLE VIEW CHEST CLINICAL HISTORY: Generalized weakness FINDINGS: An AP, portable, upright chest radiograph is compared to study dated 07/21/2023. The cardiom ediastinal silhouette is unremarkable. The lungs and pleural spaces are clear. No pneumothorax is see n. The bony thorax is grossly intact. IMPRESSION: No active disease in the chest. ACT 112: Negative or not required by law. Electronically signed by: Lakhwinder Syed M.D. 09/16/2023 7:25 AM
[2023-09-16] MEDS: SODIUM CHLORIDE 0.45 % 1,000 ML IV SCH ×2 (07:30→21:05)
[2023-09-16] MEDS: SERTRALINE HCL 50 MG TABLET PO SCH (11:15)
[2023-09-16] MEDS: FOLIC ACID 1 MG TAB PO SCH (11:17)
[2023-09-16] MEDS: ONDANSETRON INJ 2 MG/ML 2 ML VIAL IV PRN ×2 (13:30→21:05)
[2023-09-16] MEDS: HYDROmorphone INJ 1 MG/ML SYRINGE IV PRN ×4 (15:08→23:25)
[2023-09-17] MEDS: HYDROmorphone INJ 1 MG/ML SYRINGE IV PRN ×6 (01:53→19:27)
[2023-09-17 06:39] LABS: Hematocrit (blood only) 25.9 % (37.0-47.0); Hemoglobin 9.7 g/dl (12.0-16.0); Mean Corpuscular Hemoglobin 30.7 pg (25.0-34.0); Mean Corpuscular Hgb Conc 37.5 g/dL (32.0-36.0); Mean Platelet Volume 9.7 fL (9.4-12.4); Nucleated RBC # (auto) 0.08 K/uL (0.00-0.12); Nucleated RBC % (auto) 0.9 %; Platelet Count 332 K/uL (130-400); RDW Coefficient of Variation 13.7 % (11.5-14.5); Red Blood Count 3.16 M/uL (4.20-5.40); White Blood Count 9.01 K/ul (4.8-10.8)
[2023-09-17 07:07] LABS: Anion Gap 5 (3-11); BUN Creatinine Ratio 10.6 (10-20); Blood Urea Nitrogen 5 mg/dl (6-23); Calcium 9.4 mg/dl (8.6-10.3); Carbon Dioxide 26 mmol/L (21-32); Chloride 107 mmol/L (98-107); Creatinine Clr Calc Pharmacy 182.6 ml/min; Est GFR (African American) > 150.0 ml/min; Est GFR (Non-African American) 140.2 ml/min; Glucose 88 mg/dl (70-99(Fasting)); Potassium 3.8 mmol/L (3.5-5.1); Sodium 138 mmol/L (136-145)
[2023-09-17] MEDS: SERTRALINE HCL 50 MG TABLET PO SCH (08:14)
[2023-09-17] MEDS: FOLIC ACID 1 MG TAB PO SCH (08:14)
--- NOTE | 2023-09-17 10:59 | Hospitalist Progress Note ---
Date of Service September 17, 2023 Assessment & Plan (1) Sickle cell crisis: Plan: 23yo female presenting with several days of acute pain consistent with sickle cell acute pain crisis. Patient is afebrile, no evidence of acute chest syndrome. 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 Mancilla but I did not get a call back I wanted to inquire about her home Adakveo Plan Continue hospitalization, plan is to transition to oral pain meds prior to discharge. Admission and Anticipated Discharge Date Admission Date: September 16, 2023 Subjective Patient seen and examined today, says her pain is under better control Review of Systems Review of Systems: All systems reviewed are negative, apart from the ones contained in the history. Physical Exam Physical Exam: The patient is awake, alert and oriented 3, well developed and well nourished, normocephalic and atraumatic, lying in bed and in no acute distress. HEENT--PERRL, EOMI, mucous membranes and oropharynx mildly dry Neck--supple. No JVD. No bruits. Thyroid normal, trachea midline, no adenopathy. Heart--normal S1 and S2. No murmurs, rubs or gallops. Lungs--clear bilaterally, no respiratory distress, no accessory muscle use. Abdomen--normal bowel sounds and soft. Mild epigastric and left sided abdominal pain Extremities--no cyanosis or clubbing. No edema. Dermatologic--normal skin turgor, normal color, no abnormal lymph nodes, no rash. Neurologic--cranial nerves II through XII grossly intact. Rheumatologic--normal range of motion. Psychiatric--normal affect. Results & Data Results & Data Vital Signs (Past 12 Hours) Vital Signs Temp Pulse Resp BP Pulse Ox O2 Del Method 09/17/23 09:00 18 98 Room Air 09/17/23 07:52 98.6 F 74 16 105/71 99 Room Air PG Care Time/CCT Total # of Minutes Spent Total Time Spent with Patient: Total time spent is greater than 50% in coordination of care (as documented) at patient's floor/unit and/or counseling patient: Coding Level of Care Code 26729 SUB INP/OBS CARE 2/35MIN Diagnoses Sickle cell crisis D57.00 Time Spent (min) 35
[2023-09-17] MEDS: POLYETHYLENE (MIRALAX) 17 GM PACK PO PRN (14:55)
[2023-09-17] MEDS: SENNA 8.6 MG TAB PO SCH (15:22)
[2023-09-17] MEDS: HYDROmorphone INJ 0.5 MG/0.5 ML SYR IV PRN (21:11)
[2023-09-18] MEDS: HYDROmorphone INJ 1 MG/ML SYRINGE IV PRN ×3 (00:02→05:23)
[2023-09-18] MEDS: HYDROmorphone INJ 0.5 MG/0.5 ML SYR IV PRN (03:56)
[2023-09-18] MEDS: FOLIC ACID 1 MG TAB PO SCH (08:10)
[2023-09-18] MEDS: SENNA 8.6 MG TAB PO SCH (08:10)
[2023-09-18] MEDS: SERTRALINE HCL 50 MG TABLET PO SCH (08:10)
[2023-09-18] MEDS: HYDROmorphone HCL 2 MG TAB PO PRN ×4 (09:07→23:24)
--- NOTE | 2023-09-18 10:53 | Hospitalist Progress Note ---
Date of Service September 18, 2023 Assessment & Plan (1) Sickle cell crisis: Plan: 23yo female presenting with several days of acute pain consistent with sickle cell acute pain crisis. Patient is afebrile, no evidence of acute chest syndrome. -Pain is now under better control -Continue p.o. Dilaudid 2 mg every 4 hours as needed Plan to discharge home soon (2) Constipation: Plan: Still has not had a bowel movement Continue MiraLAX and senna Plan Hopefully discharge home today Admission and Anticipated Discharge Date Admission Date: September 16, 2023 Subjective Patient seen and examined today, says her pain is under better control, but she has not had a bowel movement Review of Systems Review of Systems: All systems reviewed are negative, apart from the ones contained in the history. Physical Exam Physical Exam: The patient is awake, alert and oriented 3, well developed and well nourished, normocephalic and atraumatic, lying in bed and in no acute distress. HEENT--PERRL, EOMI, mucous membranes and oropharynx mildly dry Neck--supple. No JVD. No bruits. Thyroid normal, trachea midline, no adenopathy. Heart--normal S1 and S2. No murmurs, rubs or gallops. Lungs--clear bilaterally, no respiratory distress, no accessory muscle use. Abdomen--normal bowel sounds and soft. Mild epigastric and left sided abdominal pain Extremities--no cyanosis or clubbing. No edema. Dermatologic--normal skin turgor, normal color, no abnormal lymph nodes, no rash. Neurologic--cranial nerves II through XII grossly intact. Rheumatologic--normal range of motion. Psychiatric--normal affect. Results & Data Results & Data Vital Signs (Past 12 Hours) Vital Signs Temp Pulse Resp BP Pulse Ox O2 Del Method 09/18/23 07:07 98.6 F 81 16 92/62 L 100 Room Air PG Care Time/CCT Total # of Minutes Spent Total Time Spent with Patient: Total time spent is greater than 50% in coordination of care (as documented) at patient's floor/unit and/or counseling patient: Coding Level of Care Code 98444 SUB INP/OBS CARE 2/35MIN Diagnoses Sickle cell crisis D57.00 Constipation K59.00 Time Spent (min) 35
[2023-09-18] MEDS ORDERED: KETOROLAC TROMETHAMINE 15 MG/ML VIAL IV ONE (11:32)
[2023-09-18] MEDS: POLYETHYLENE (MIRALAX) 17 GM PACK PO PRN (14:29)
[2023-09-18] MEDS ORDERED: HYDROmorphone INJ 0.5 MG/0.5 ML SYR IV STA ×2 (16:06→19:47)
[2023-09-18] MEDS ORDERED: MELATONIN 3 MG TAB PO PRN (20:12)
[2023-09-18] MEDS ORDERED: HYDROmorphone INJ 1 MG/ML SYRINGE IV STA (20:12)
[2023-09-19] MEDS: SERTRALINE HCL 50 MG TABLET PO SCH (08:05)
[2023-09-19] MEDS: SENNA 8.6 MG TAB PO SCH (08:05)
[2023-09-19] MEDS: FOLIC ACID 1 MG TAB PO SCH (08:06)
[2023-09-19] MEDS: POLYETHYLENE (MIRALAX) 17 GM PACK PO PRN (08:08)
--- NOTE | 2023-09-19 09:53 | Discharge Summary ---
Date of Service September 19, 2023 Admission HPI Per Admitting Provider Kaylan Armenta is a 23yo female with sickle cell anemia presenting with acute pain crisis. Patient reports several days of ongoing pain of the bilateral knees and back. Pain has been severe. She has been taking Dilaudid 2mg PO q 6 hours at home with minimal improvement in pain. She has also had significant generalized weakness and fatigue. She reports that she has been too fatigued to go to class over the last several days. She has had a poor appetite and decreased oral intake as well as occasional nausea and dizziness. She denies fever, chills, chest pain, cough or shortness of breath. No additional complaints at this time. In the ER she is afebrile, HD stable ER Course: Dilaudid 0.5mg IV Acetaminophen 1gm IV ordered - not yet given Dilaudid 1gm IV ordered - not yet given Principal Diagnosis Sickle cell pain crisis Discharge Exam The patient is awake, alert and oriented 3, well developed and well nourished, normocephalic and atraumatic, lying in bed and in no acute distress. HEENT--PERRL, EOMI, mucous membranes and oropharynx mildly dry Neck--supple. No JVD. No bruits. Thyroid normal, trachea midline, no adenopathy. Heart--normal S1 and S2. No murmurs, rubs or gallops. Lungs--clear bilaterally, no respiratory distress, no accessory muscle use. Abdomen--normal bowel sounds and soft. Mild epigastric and left sided abdominal pain Extremities--no cyanosis or clubbing. No edema. Dermatologic--normal skin turgor, normal color, no abnormal lymph nodes, no rash. Neurologic--cranial nerves II through XII grossly intact. Rheumatologic--normal range of motion. Psychiatric--normal affect. Discharge Data Allergies Allergy/AdvReac Type Severity Reaction Status Date / Time peanut Allergy Intermediate ITCHY HIVES Verified 07/21/23 12:44 Consultations 09/16/23 03:49 ED Decision to Admit Stat Hospital Course (1) Sickle cell crisis: 23yo female presenting with several days of acute pain consistent with sickle cell acute pain crisis. Patient is afebrile, no evidence of acute chest syndrome. -Pain is now under better control -Continue p.o. Dilaudid 2 mg every 4 hours as needed Plan to discharge home soon (2) Constipation: Still has not had a bowel movement Continue MiraLAX and senna Plan Hopefully discharge home today Total Time Total Time Spent Total Time Spent (In Minutes): 35 minutes Discharge Plan Discharge Items Patient Disposition: Home - Self-Care Reason For Visit: SICKLE CELL PAIN CRISIS Discharge Diagnosis: Sickle cell pain crisis Condition on Discharge: Good Activity: Resume your previous activity Non-emergency contact: Primary Care Provider Call non-emergency contact if: you have any medication questions Follow-up/Referrals: [facility] [Primary Care Provider] - Diet: Regular Addtl Attending Provider Instructions: Please make appointment to follow-up with your regular doctors Pending Studies at Discharge: No Stand-Alone Forms: [employer], Smoking Cessation Medications and DC Order Prescriptions: New sennosides [Senokot] 8.6 mg Tablet 17.2 mg PO QAM 10 Days Qty: 20 0RF polyethylene glycol 3350 [Miralax] 17 gram Powder In Packet 17 g PO DAILY PRN (Reason: constipation) 10 Days Qty: 10 0RF hydromorphone [Dilaudid] 2 mg Tablet 2 mg PO Q4H PRN (Reason: pain) 5 Days Qty: 10 0RF Continued cetirizine 10 mg tablet 10 mg PO HS PRN (Reason: Congestion) acetaminophen 325 mg tablet 650 mg PO DIRECTED PRN (Reason: Pain) budesonide-formoterol [Symbicort] 80-4.5 mcg/actuation Hfa Aerosol Inhaler 2 puff INHALATION BID PRN (Reason: Shortness Of Breath Or Wheezing) Adakveo 10 mg/mL Solution See Rx Instructions .ROUTE .COMPLEX Rx Instructions: infusion monthly per pt folic acid 1 mg tablet 5 mg PO DAILY sertraline 25 mg PO DAILY hydromorphone 2 mg tablet 2 mg PO Q4H PRN (Reason: pain) Qty: 20 0RF ibuprofen 800 mg tablet 800 mg PO TID Discharge Orders: Discharge Order (Routine); Ordered 09/19/23 Ordered By: Bonnie Winters Admission Data Admit Date/Time: 09/16/23 03:51 Attending Provider: Bonnie Winters Admit Provider: Madiha Rodriguez Primary Care Provider: [facility] Other Providers: Madiha Rodriguez Coding Level of Care Code 48263 INP/OBS DISCH >30 MIN Diagnoses Sickle cell crisis D57.00 Constipation K59.00 Time Spent (min) 35
== END 2023-09-19 11:03 | disposition home or self-care (01) | DRG 812 ==
LOC: ED 01:15 → SUATTDRO 03:51 → EDINP 03:51 → 3E 06:26

== ENCOUNTER 2023-11-05 03:26 | Observation (INO) ==
--- NOTE | 2023-11-05 03:40 | Emergency Department Note ---
History of Present Illness General Chief complaint: Pain (Generalized) Stated complaint: JOINT AND BACK PAIN Time Seen by Provider: 11/05/23 03:31 History of Present Illness Maximum Pain Intensity: 8 This 23-year-old female with sickle cell disease presents to the ER complaining of sickle cell pain. She also has had a cold for the past few days. Patient denies chest pain, abdominal pain, sore throat, vomiting. Home Medications Medication Instructions Recorded Confirmed Type cetirizine 10 mg tablet 10 mg PO HS PRN Congestion 04/18/20 09/16/23 History acetaminophen 325 mg tablet 650 mg PO DIRECTED PRN Pain 12/13/21 09/16/23 History crizanlizumab-tmca 10 mg/mL See Rx Instructions .Route .COMPLEX 06/30/22 09/16/23 History intravenous solution (Adakveo) budesonide-formoterol HFA 80 2 puff inhalation BID PRN 12/14/22 09/16/23 History mcg-4.5 mcg/actuation aerosol Shortness Of Breath Or Wheezing inhaler (Symbicort) folic acid 1 mg tablet 5 mg PO DAILY 05/25/23 09/16/23 History sertraline 25 mg PO DAILY 07/21/23 09/16/23 History hydromorphone 2 mg tablet 2 mg PO Q4H PRN pain #20 tabs 07/23/23 09/16/23 Rx ibuprofen 800 mg tablet 800 mg PO TID 09/16/23 09/16/23 History Allergies Allergy/AdvReac Type Severity Reaction Status Date / Time peanut Allergy Intermediate ITCHY HIVES Verified 07/21/23 12:44 Past Med/Surg History Medical History Sickle cell crisis Constipation Back pain Parainfluenza Sickle cell crisis Anxiety Seasonal allergies Sickle cell anemia with crisis COVID-19 Influenza A Leukocytosis Pneumonia Sepsis Splenomegaly Abnormal LFTs Transaminitis Sickle cell crisis Vaginal ulceration Sepsis Pyelonephritis Asthma Sickle cell anemia Surgical History No pertinent past surgical history Family History Brother Sickle cell anemia Social History Smoking Status: Never smoker Second Hand Exposure: No; Do You Dip or Chew Tobacco: No; Hx Alcohol Use: Yes Alcohol type: wine and hard liquor Alcohol Intake Frequency: Monthly or Less Alcohol Intake Frequency Comment: 1 drink Hx Substance Use: No Preferred Language: Swedish Communication Ability: Effective Real Estate Internship Required: No Beliefs That Will Affect Care: None marital status: Single Current Living Situation: Other Current Living Situation Comment: roommates - school Feels Safe at Home: Yes Assistive Devices: None Review of Systems A total of 10 systems reviewed and were otherwise negative Physical Exam Vital Signs Vital Signs - 24 hr 11/05/23 03:29 11/05/23 04:23 11/05/23 04:39 Temperature 36.2 C L Temperature Source Temporal Artery Scan Pulse Rate 101 H 97 H 81 Pulse Rate [Right Finger] Respiratory Rate 20 12 Blood Pressure 106/63 Blood Pressure [Left Arm] Blood Pressure Mean 77 Blood Pressure Mean [Left Arm] Pulse Oximetry 100 100 Oxygen Delivery Method Room Air Room Air Sepsis Recent Fever Within 48 Hours No Sepsis New/Unexplained Change in Mental Status No Sepsis Action Taken by Nursing No Action Required 11/05/23 04:40 Temperature Temperature Source Pulse Rate Pulse Rate [Right Finger] 82 Respiratory Rate 15 Blood Pressure Blood Pressure [Left Arm] 130/91 Blood Pressure Mean Blood Pressure Mean [Left Arm] 104 Pulse Oximetry 100 Oxygen Delivery Method Room Air Sepsis Recent Fever Within 48 Hours Sepsis New/Unexplained Change in Mental Status Sepsis Action Taken by Nursing VITALS: Vitals are noted on the nurse's note and reviewed by myself. Vital signs stable. GENERAL: Pleasant patient, in no acute distress, nondiaphoretic, well-developed well-nourished. SKIN: The skin was without rashes, erythema, edema, or bruising. There is no tenting of the skin. Capillary reflex less than 2 seconds. HEAD: Normocephalic atraumatic. EARS: External auditory canals clear EYES: Pupils equal round and reactive to light and accommodation. Conjunctivae without injection, sclerae without icterus. Extraocular movements intact. NOSE: Patent, no discharge. MOUTH: Mucous membranes moist. Pharynx without erythema or exudate. Uvula midline. Airway patent. Tongue does not deviate. NECK: Supple without nuchal rigidity. No lymphadenopathy. No thyromegaly. Cervical spine is nontender. No JVD. HEART: Regular rate and rhythm LUNGS: Clear to auscultation bilaterally without wheezes, rales or rhonchi. No retractions or accessory muscle use. ABDOMEN: Positive bowel sounds x 4. Normal tympanic percussion. Soft, nontender, without masses or organomegaly. Lou sign negative. No guarding or rebound tenderness. No CVA tenderness MUSCULOSKELETAL: No muscle atrophy, erythema, or edema noted. NEURO: Patient was alert and oriented to person place and time. Normal sensation to light and sharp touch. No focal neurological deficits. Course Administered Medications Discontinued Medications Hydromorphone HCl (Hydromorphone Inj 0.5 Mg/0.5 Ml Syr) 0.5 mg IV Q15M PRN PRN Reason: Pain Stop: 11/05/23 07:29 Last Admin: 11/05/23 05:26 Dose: 0.5 mg Documented By: Admin: 11/05/23 04:53 Dose: 0.5 mg Documented By: ELIER Sodium Chloride (Nss) 1,000 mls @ 999 mls/hr IV .Q1H1M ONE Stop: 11/05/23 04:30 Last Admin: 11/05/23 04:29 Dose: 999 mls/hr Documented By: ELIER Acetaminophen (Ofirmev) 1,000 mg in 100 mls @ 400 mls/hr IV NOW STA Stop: 11/05/23 03:44 Last Infusion: 11/05/23 05:24 Dose: Infused Documented By: Admin: 11/05/23 04:29 Dose: 400 mls/hr Documented By: ELIER Ondansetron HCl (Ondansetron Inj 2 Mg/Ml 2 Ml Vial) 4 mg IV NOW STA Stop: 11/05/23 03:31 Last Admin: 11/05/23 04:29 Dose: 4 mg Documented By: ELIER Medical Decision Making Medical Records Attestation: I reviewed the patient's medical records. Home Medications Current Medication List: was personally reviewed by me Laboratory Data Attestation: I reviewed the patient's lab results. 11/05/23 04:13 11/05/23 04:13 Lab Results 11/05/23 Range/Units 04:13 WBC 5.85 (4.8-10.8) K/ul RBC 3.39 L (4.20-5.40) M/uL Hgb 10.1 L (12.0-16.0) g/dl Hct 28.3 L (37.0-47.0) % MCV 83.5 (80.0-100.0) fL MCH 29.8 (25.0-34.0) pg MCHC 35.7 (32.0-36.0) g/dL RDW Std Deviation 42.4 (36.4-46.3) fL RDW Coeff of Kashif 14.1 (11.5-14.5) % Plt Count 295 (130-400) K/uL MPV 10.0 (9.4-12.4) fL Immature Gran % (Auto) 0.2 % Neut % (Auto) 35.9 % Lymph % (Auto) 47.4 % Cascade % (Auto) 11.1 % Eos % (Auto) 4.4 % Baso % (Auto) 1.0 % Reticulocyte % (Auto) 3.61 H (0.50-2.00) % Neut # (Auto) 2.10 (1.40-6.50) K/uL Lymph # (Auto) 2.77 (1.20-3.40) K/uL Cascade # (Auto) 0.65 H (0.11-0.59) K/uL Eos # (Auto) 0.26 (0.00-0.50) K/uL Baso # (Auto) 0.06 (0.00-0.20) K/uL Reticulocyte # 0.120 H (0.020-0.100) 10^6/uL Immature Gran # (Auto) 0.01 (0.01-0.20) K/uL Absolute Nucleated RBC 0.04 (0.00-0.12) K/uL Nucleated RBC % (auto) 0.7 % Sodium 136 (136-145) mmol/L Potassium 3.9 (3.5-5.1) mmol/L Chloride 106 (98-107) mmol/L Carbon Dioxide 25 (21-32) mmol/L Anion Gap 5 (3-11) BUN 7 (6-23) mg/dl Creatinine 0.60 (0.6-1.2) mg/dl Est Cr Clr Drug Dosing 143.0 ml/min Est GFR ( Amer) 150.0 ml/min Est GFR (Non-Af Amer) 129.4 ml/min BUN/Creatinine Ratio 11.7 (10-20) Glucose 93 (70-99(Fasting)) mg/dl Calcium 8.9 (8.6-10.3) mg/dl Total Bilirubin 1.3 H (0.2-1.0) mg/dl AST 35 (13-39) U/L ALT 25 (7-52) U/L Alkaline Phosphatase 43 (34-104) U/L Total Creatine Kinase 69 (26-192) U/L Troponin I High Sens < 2.3 (0-14) pg/ml Total Protein 7.1 (6.0-8.3) gm/dl Albumin 4.3 (3.4-5.0) gm/dl Globulin 2.8 (2.5-4.0) gm/dl Albumin/Globulin Ratio 1.5 (0.9-2) Lipase 11 (11-82) U/L HCG, Qual Negative (Negative) Adenovirus (PCR) Not Detected (NotDetected) B. pertussis DNA (PCR) Not Detected (NotDetected) B.parapertussis DNA PCR Not Detected (NotDetected) C. pneumoniae DNA (PCR) Not Detected (NotDetected) Coronavirus OC43 (PCR) Not Detected (NotDetected) Coronavirus HKU1 (PCR) Not Detected (NotDetected) Coronavirus 229E (PCR) Not Detected (NotDetected) SARS-CoV-2 (PCR) DETECTED A (NotDetected) Coronavirus NL63 (PCR) Not Detected (NotDetected) Human Metapneumovir PCR Not Detected (NotDetected) Influenza Type A (PCR) Not Detected (NotDetected) Influenza Type B (PCR) Not Detected (NotDetected) M. pneumoniae (PCR) Not Detected (NotDetected) Parainfluenza 1 (PCR) Not Detected (NotDetected) Parainfluenza 2 (PCR) Not Detected (NotDetected) Parainfluenza 3 (PCR) Not Detected (NotDetected) Parainfluenza 4 (PCR) Not Detected (NotDetected) RSV (PCR) Not Detected (NotDetected) Entero/Rhino (PCR) Not Detected (NotDetected) Imaging Data Attestation: I personally reviewed and interpreted this imaging study as follows: MDM Narrative Prior records/ancillary studies reviewed and summarized above. Nursing notes reviewed. Additional history obtained from nursing. The patient's history was concerning for sickle cell crisis. Differential diagnosis: Etiologies such as sickle cell crisis, metabolic, infection, hypo/hyperglycemia, electrolyte abnormalities, cardiac sources, intracerebral event, toxicologic, neurologic, as well as others were entertained. Physical examination: As above. ER treatment provided: IV Lock An order was placed for continuous cardiac monitoring. The monitor shows a rate of 60-1 10 with a sinus rhythm per my interpretation. IV fluids, Dilaudid, Zofran and Tylenol were ordered On reassessment the patient felt better. Diagnostics interpretation by me: ECG: Ordered for pain EKG: Normal sinus, normal intervals, no acute ST-T wave changes. Impression normal sinus rhythm independently interpreted by myself I think arrhythmia is unlikely. EKG shows normal sinus rhythm with no interval abnormalities such as QT prolongation or WPW. There are no findings to suggest Brugada syndrome. Cardiac monitoring in the emergency department reveals no tachycardic or bradycardic dysrhythmia. Hypertrophic cardiomyopathy was considered but there are no clear historical elements pointing toward this. EKG is not suggestive. The QRS voltage is not extremely large and there are no suggestive Q waves. The labs Independently Interpreted by myself revealed mild anemia, elevated retic count Negative hCG BioFire positive for COVID Imaging studies: Chest x-ray with no acute consolidation, pneumothorax or free air per my independent or potation Consultation: A consultation was placed with the hospitalist. The case was discussed and diagnostics were reviewed. The patient was evaluated in the ER for further treatment. Exam and history seem consistent with sickle cell crisis with COVID. Labs and diagnostics are independent interpreted by myself. X-ray is clear. Patient still moderate amount of pain. Medicine was consulted case was discussed. She will be mated to the medical service for further evaluation and workup. By the evaluation outlined above emergent etiologies such as , electrolyte abnormalities, cardiac sources, intracerebral event, toxologic, neurologic, abnormalities blood glucose, metabolic, as well as others were deemed relatively unlikely. The pt informed about the findings as listed above. All questions were answered and pleased with the treatment. The chart was completed utilizing [employer] voice recognition software. Grammatical errors, random word insertions, pronoun errors, and incomplete sentences are an occassional consequence of this system due to software limitations, ambient noise, and hardware issues. Any formal questions or concerns about the content, text, or information contained within the body of this dictation should be directly addressed to the physician assistant property manager for clarification. Impression & Plan Sickle cell disease with crisis, COVID-19 virus infection Discharge Plan Visit Data Chief Complaint: Pain (Generalized) Stated Complaint: JOINT AND BACK PAIN ED Provider: Fanny Castaneda ED Midlevel Provider: Fallon Bains Discharge Problem: Sickle cell disease with crisis, COVID-19 virus infection Patient Disposition: Admitted As Inpatient Condition: Good Discharge Instructions Interventions: ED Discharge Assessment Last Done: 11/05/23 05:54
[2023-11-05] MEDS: ONDANSETRON INJ 2 MG/ML 2 ML VIAL IV STA (04:29)
[2023-11-05] MEDS: SODIUM CHLORIDE 0.9% 1,000 ML IV ONE ×2 (04:29→06:09)
[2023-11-05] MEDS: ACETAMINOPHEN 1,000 MG/100 ML VIAL IV STA (04:29)
[2023-11-05 04:46] LABS: Alanine Aminotransferase 25 U/L (7-52); Albumin Globulin Ratio 1.5 (0.9-2); Albumin Level 4.3 gm/dl (3.4-5.0); Alkaline Phosphatase 43 U/L (34-104); Anion Gap 5 (3-11); Aspartate Aminotransferase 35 U/L (13-39); BUN Creatinine Ratio 11.7 (10-20); Bilirubin,Total 1.3 mg/dl (0.2-1.0); Blood Urea Nitrogen 7 mg/dl (6-23); Calcium 8.9 mg/dl (8.6-10.3); Carbon Dioxide 25 mmol/L (21-32); Chloride 106 mmol/L (98-107); Creatine Kinase 69 U/L (26-192); Est GFR (Non-African American) 129.4 ml/min; Globulin 2.8 gm/dl (2.5-4.0); Glucose 93 mg/dl (70-99(Fasting)); Lipase 11 U/L (11-82); Potassium 3.9 mmol/L (3.5-5.1); Sodium 136 mmol/L (136-145); Total Protein 7.1 gm/dl (6.0-8.3)
[2023-11-05 04:47] LABS: Basophils # (auto) 0.06 K/uL (0.00-0.20); Eosinophils # (auto) 0.26 K/uL (0.00-0.50); Eosinophils % (auto) 4.4 %; Hematocrit (blood only) 28.3 % (37.0-47.0); Hemoglobin 10.1 g/dl (12.0-16.0); Immature Granulocytes # (auto) 0.01 K/uL (0.01-0.20); Immature Granulocytes % (auto) 0.2 %; Lymphocytes # (auto) 2.77 K/uL (1.20-3.40); Lymphocytes % (auto) 47.4 %; Mean Corpuscular Hemoglobin 29.8 pg (25.0-34.0); Mean Corpuscular Hgb Conc 35.7 g/dL (32.0-36.0); Mean Corpuscular Volume 83.5 fL (80.0-100.0); Monocytes # (auto) 0.65 K/uL (0.11-0.59); Monocytes % (auto) 11.1 %; Neutrophils % (auto) 35.9 %; Nucleated RBC # (auto) 0.04 K/uL (0.00-0.12); Nucleated RBC % (auto) 0.7 %; Platelet Count 295 K/uL (130-400); RDW Coefficient of Variation 14.1 % (11.5-14.5); RDW Standard Deviation 42.4 fL (36.4-46.3); Red Blood Count 3.39 M/uL (4.20-5.40); Reticulocyte % 3.61 % (0.50-2.00); White Blood Count 5.85 K/ul (4.8-10.8)
[2023-11-05 04:52] LABS: Pregnancy Test, Serum Negative (Negative); Troponin I High Sensitivity < 2.3 pg/ml (0-14)
[2023-11-05] MEDS: HYDROmorphone INJ 0.5 MG/0.5 ML SYR IV PRN ×2 (04:53→06:14)
--- NOTE | 2023-11-05 04:54 | History & Physical Report ---
Date of Service November 05, 2023 Assessment & Plan (1) Sickle cell disease with crisis: Plan: 23 y/o female presenting with several days of acute pain consistent with sickle cell acute pain crisis. Patient is afebrile, no evidence of acute chest syndrome. Dilaudid 0.5 mg IV q15M while in the ED. Narcan ordered. Fluid resuscitated with 2L NS bolus. Started on mIVF with 1/2 NSS @ 125 mL/hr. QTC 465 - if requiring significant amounts of QT prolonging agents would recheck EKG. Dilaudid 0.5 mg Q3H, 1 mg IV Q4H PRN for pain mIVF with 1/2 NS @ 125 mL/hr Supplemental O2 as needed Narcan for oversedation/respiratory depression Tylenol PRN, Zofran PRN, Miralax PRN continue folic acid after med rec completed (2) COVID-19 virus infection: Plan: Patient with cold symptoms for several days. BioFire positive for Covid. Likely triggered sickle cell crisis. No respiratory distress or hypoxia. No treatment indicated at this time. (3) Asthma: Plan: Resume home meds after med rec completed (4) Anxiety: Plan: Resume home meds after med rec completed Plan Code status: full DVT ppx: low risk, ambulation, SCDs FENGI: regular diet, IVF 1/2 NS @ 125 mL/hr Dispo: MedSurg tele History of Present Illness Chief Complaint: generalized pain Primary Care Provider: [facility] 23 y/o female with a PMHx of sickle cell anemia and multiple sickle cell crises presents with generalized pain. Patient with several days of increased pain. Was taking her home dilaudid without much improvement. Has been sick recently with a cold and is having diarrhea. Patient does not have any chest pain or difficulty breathing. Presentation consistent with prior sickle cell crisis. Given 1L IVF, tylenol, dilaudid, and zofran in the ED. Pain improved but still present. Allergies Allergy/AdvReac Type Severity Reaction Status Date / Time peanut Allergy Intermediate ITCHY HIVES Verified 07/21/23 12:44 Home Medications Medication Instructions Recorded Confirmed Type cetirizine 10 mg tablet 10 mg PO HS PRN Congestion 04/18/20 09/16/23 History acetaminophen 325 mg tablet 650 mg PO DIRECTED PRN Pain 12/13/21 09/16/23 History crizanlizumab-tmca 10 mg/mL See Rx Instructions .Route .COMPLEX 06/30/22 09/16/23 History intravenous solution (Adakveo) budesonide-formoterol HFA 80 2 puff inhalation BID PRN 12/14/22 09/16/23 History mcg-4.5 mcg/actuation aerosol Shortness Of Breath Or Wheezing inhaler (Symbicort) folic acid 1 mg tablet 5 mg PO DAILY 05/25/23 09/16/23 History sertraline 25 mg PO DAILY 07/21/23 09/16/23 History hydromorphone 2 mg tablet 2 mg PO Q4H PRN pain #20 tabs 07/23/23 09/16/23 Rx ibuprofen 800 mg tablet 800 mg PO TID 09/16/23 09/16/23 History Past Med/Surg History Medical History Sickle cell crisis Constipation Back pain Parainfluenza Sickle cell crisis Anxiety Seasonal allergies Sickle cell anemia with crisis COVID-19 Influenza A Leukocytosis Pneumonia Sepsis Splenomegaly Abnormal LFTs Transaminitis Sickle cell crisis Vaginal ulceration Sepsis Pyelonephritis Asthma Sickle cell anemia Surgical History No pertinent past surgical history Family History Brother Sickle cell anemia Social History Smoking Status: Never smoker Second Hand Exposure: No; Do You Dip or Chew Tobacco: No; Hx Alcohol Use: Yes Alcohol type: wine and hard liquor Alcohol Intake Frequency: Monthly or Less Alcohol Intake Frequency Comment: 1 drink Hx Substance Use: No Preferred Language: Pashto Communication Ability: Effective Survey Engineer Required: No Beliefs That Will Affect Care: None marital status: Single Current Living Situation: Other Current Living Situation Comment: roommates - school Feels Safe at Home: Yes Assistive Devices: None Review of Systems 2 Review of Systems: See HPI Physical Exam 2 Physical Exam: Gen: non-toxic appearing patient in NAD, uncomfortable HEENT: AT NC MMM Resp: CTAB no wheezing no increased work of breathing CV: RRR no m/r/g clinically well perfused Abd: soft, non-tender, non-distended MSK: no obvious deformities Skin: no rashes or bruising Neuro: alert and oriented Psych: appropriate mood and affect Results & Data Results & Data Vital Signs (Past 12 Hours) Vital Signs Temp Pulse Pulse Resp BP BP Pulse Ox 11/05/23 04:40 82 15 130/91 100 11/05/23 04:39 81 12 100 11/05/23 04:23 97 H 11/05/23 03:29 36.2 C L 101 H 20 106/63 100 O2 Del Method 11/05/23 04:40 Room Air 11/05/23 04:39 Room Air 11/05/23 04:23 11/05/23 03:29 Room Air Laboratory Results 11/05/23 04:13 11/05/23 04:13 Supervising Physician Co-Signing Physician Notes Attending addendum: I have supervised the medical residents activities, and agree with the H&P unless as otherwise noted. Assessment and Plan: Sickle cell crisis- Patient reports onset of acute painful crisis over the past several days, worse over the past 24 hours Status post 1 L normal saline in the ED Placed on NSS at 125 MLS per hour for 1 additional liter Dilaudid per scale 0.5 mg - 1 mg IV every 4 hours as needed Acetaminophen 650 mg by mouth every 6 hours as needed for mild pain or fever Narcan per protocol for for sedation and respiratory depression Zofran 4 mg IV every 6 hours as needed On Adakveo in the outpatient setting COVID-19 infection- 100% on room air Will placed on standard COVID-19 precautions, but no direct treatment indicated Asthma/allergy- Continue Symbicort Continue cetirizine daily as needed Anxiety- Continue sertraline Resident Activity Tracking Resident Involvement: Resident Care Provided Care Provided: Adult Hospital Medicine
[2023-11-05 05:27] LABS: Adenovirus PCR Not Detected (NotDetected); Bordetella parapertussis PCR Not Detected (NotDetected); Bordetella pertussis PCR Not Detected (NotDetected); Chlamydia pneumoniae PCR Not Detected (NotDetected); Coronavirus 229E PCR Not Detected (NotDetected); Coronavirus CoV-2 (COVID19)PCR DETECTED (NotDetected); Coronavirus HKU1 PCR Not Detected (NotDetected); Coronavirus NL63 PCR Not Detected (NotDetected); Coronavirus OC43PCR Not Detected (NotDetected); Human Metapneumovirus PCR Not Detected (NotDetected); Influenza A PCR Not Detected (NotDetected); Influenza B PCR Not Detected (NotDetected); Mycoplasma pneumoniae PCR Not Detected (NotDetected); Parainfluenza Virus 1 PCR Not Detected (NotDetected); Parainfluenza Virus 2 PCR Not Detected (NotDetected); Parainfluenza Virus 3 PCR Not Detected (NotDetected); Parainfluenza Virus 4 PCR Not Detected (NotDetected); Respiratory Syncytial VirusPCR Not Detected (NotDetected); Rhinovirus/Enterovirus PCR Not Detected (NotDetected)
[2023-11-05] MEDS ORDERED: NALOXONE HCL 0.4 MG/1 ML VIAL/CARP IV PRN (05:33)
--- NOTE | 2023-11-05 05:49 | Billing Data ---
Date of Service November 05, 2023 Coding Level of Care Code 13252 INT INP/OBS CARE
[2023-11-05] MEDS ORDERED: POLYETHYLENE (MIRALAX) 17 GM PACK PO PRN (05:53)
[2023-11-05] MEDS ORDERED: ONDANSETRON INJ 2 MG/ML 2 ML VIAL IV PRN (05:53)
[2023-11-05] MEDS ORDERED: ACETAMINOPHEN 325 MG TAB PO PRN (05:53)
--- NOTE | 2023-11-05 07:30 | XRay Report ---
XR chest 1V portable CLINICAL HISTORY: Chest pain, nonspecific COMPARISON STUDY: Chest radiograph September 16, 2023. Chest CT April 18, 2022. FINDINGS: Lung volumes are normal. Lungs are clear. There is no pneumothorax or pleural effusion. Car diac size is normal. Mediastinal contours are normal. There is no evidence for pulmonary edema. IMPRESSION: No acute cardiopulmonary findings. ACT 112: Negative or not required by law. Electronically signed by: Jono Quintero M.D. 11/05/2023 7:29 AM
[2023-11-05] MEDS: SODIUM CHLORIDE 0.45 % 1,000 ML IV SCH (08:06)
[2023-11-05] MEDS: HYDROmorphone INJ 1 MG/ML SYRINGE IV STA (08:06)
--- NOTE | 2023-11-05 09:40 | Electrocardiogram Report ---
Test Reason : Blood Pressure : / mmHG Vent. Rate : 083 BPM Atrial Rate : 083 BPM P-R Int : 164 ms QRS Dur : 080 ms QT Int : 396 ms P-R-T Axes : 056 056 053 degrees QTc Int : 465 ms Normal sinus rhythm Nonspecific T wave abnormality Prolonged QT Abnormal ECG When compared with ECG of 21-JUL-2023 07:50, No significant change was found Confirmed by Jacky Alonso ([id number]) on 11/05/2023 9:42:03 AM Ref[facility] Confirmed By:Javier Alonso
[2023-11-05] MEDS: HYDROmorphone INJ 1 MG/ML SYRINGE IV PRN (14:07)
--- NOTE | 2023-11-05 17:36 | Hospitalist Progress Note ---
Date of Service November 05, 2023 Assessment & Plan (1) Sickle cell disease with crisis: Plan: 23 y/o female presenting with several days of acute pain consistent with sickle cell acute pain crisis. Patient is afebrile, no evidence of acute chest syndrome. Dilaudid 0.5 mg IV q15M while in the ED. Narcan ordered. Fluid resuscitated with 2L NS bolus. Started on mIVF with 1/2 NSS @ 125 mL/hr. - continue Dilaudid 0.5 mg Q3H, 1 mg IV Q4H PRN for pain - continue mIVF with 1/2 NS @ 125 mL/hr - Narcan for oversedation/respiratory depression - Tylenol PRN, Zofran PRN, Miralax PRN As pt has an important job interview tomorrow (noon) and is very anxious to get home if pain controlled, night resident will re-evaluate pt ~8 PM to see if pain adequately controlled. If so, pt will be discharged with PO dilaudid. If not, pt will be kept overnight with the goal of trying to discharge pt early tomorrow morning if pain then controlled. (2) COVID-19 virus infection: Plan: Patient with cold symptoms for several days. BioFire positive for Covid. Likely triggered sickle cell crisis. No respiratory distress or hypoxia. No treatment indicated at this time. (3) Asthma: Plan: - continue symbicort PRN for SOB/wheezing (4) Anxiety: Plan: - continue sertraline 25 mg daily Plan Code status: full DVT ppx: low risk, ambulation, SCDs FENGI: regular diet, IVF 1/2 NS @ 125 mL/hr [facility] and Anticipated Discharge Date Admission Date: November 05, 2023 Supervising Physician Co-Signing Physician Notes ATTESTATION I also saw the patient and confirmed knox portions of the history and exam. I agree with the impression and plan in the resident documentation, and as summarized below. Upon our early afternoon exam, the patient remains in the emergency department awaiting a bed. She is somewhat groggy from the pain medication. She does have continued pain, reports this being a bit better than when she initially presented. She has a job interview via Zoom tomorrow for which she really hopes to be discharged so that she can complete. She denies chest pain or shortness of breath. With regards to COVID, main symptom seems to be upper respiratory/nasal congestion. EXAM 126/89, 77, 18, 36.6, 100% on room air She is sleeping but awakens to voice. When awake she is alert and oriented. She does drift off to sleep at one point during my exam. Heart regular rate and rhythm Respirations are nonlabored; lungs are clear DATA Labs Hemoglobin 10.1, platelet count 295 BMP is unremarkable with preserved renal function LFTs are within normal limits Imaging Chest x-ray shows no acute disease IMPRESSION & PLAN Sickle cell crisis COVID-19 infection Pain medications for sickle cell crisis No treatment indicated for COVID-19 infection Patient is interested in discharge because of her job interview tomorrow; much this will depend on how her pain is later in the day. She may be interested in a late day discharge should her pain be under better control. Otherwise, continue current symptomatic care. Additional per resident documentation Subjective Pt is a 23 yo female with PMH of sickle cell disease presenting to the hospital d/t a sickle cell crisis. Pt seen at bedside this AM. She was still in pain, but also hoping to get home today because she has an important interview. She denies chest pain and SOB. Pt seen this afternoon in concert with Dr. Ellington and still in a decent amount of pain. She still wants to get home if able due to the interview. She also has PO dilaudid at home that she can take for pain. Pt re-evaluated later in the afternoon. Pt upset because she felt that her left arm IV was not working throughout the day and was causing burning pain. She now has a right-sided IV and she would like to try pain medications through that. Review of Systems Review of Systems: As per HPI Physical Exam Physical Exam: Upon evaluation this AM: Constitutional: well appearing, no acute distress HEENT: normocephalic, no conjunctival injection CV: RRR, no murmur, no LE edema Respiratory: CTA bilaterally. No rhonchi, wheezes, or crackles. No increased work of breathing MSK: no gross deformities noted Skin: warm, dry, no rashes Neuro: alert, oriented, no FND noted Psych: mood and affect congruent Results & Data Results & Data Vital Signs (Past 12 Hours) Vital Signs Temp Pulse Pulse Resp BP Pulse Ox Pulse Ox 11/05/23 16:08 77 18 126/89 100 11/05/23 10:17 36.6 C 92 H 18 93/53 L 96 11/05/23 08:01 100 11/05/23 08:01 73 18 115/71 100 11/05/23 07:17 84 11/05/23 07:03 79 18 97/60 L 100 O2 Del Method O2 Del Method 11/05/23 16:08 Room Air 11/05/23 10:17 Room Air 11/05/23 08:01 Room Air 11/05/23 08:01 Room Air 11/05/23 07:17 11/05/23 07:03 Room Air Resident Activity Tracking Resident Involvement: Resident Care Provided Care Provided: Adult Hospital Medicine
[2023-11-05] MEDS ORDERED: CETIRIZINE HCL 10 MG TABLET PO PRN (17:55)
--- NOTE | 2023-11-05 17:55 | Communication Note ---
Date of Service: November 05, 2023 ATTESTATION I also saw the patient and confirmed knox portions of the history and exam. I agree with the impression and plan in the resident documentation, and as summarized below. Upon our early afternoon exam, the patient remains in the emergency department awaiting a bed. She is somewhat groggy from the pain medication. She does have continued pain, reports this being a bit better than when she initially presented. She has a job interview via Zoom tomorrow for which she really hopes to be discharged so that she can complete. She denies chest pain or shortness of breath. With regards to COVID, main symptom seems to be upper respiratory/nasal congestion. EXAM 126/89, 77, 18, 36.6, 100% on room air She is sleeping but awakens to voice. When awake she is alert and oriented. She does drift off to sleep at one point during my exam. Heart regular rate and rhythm Respirations are nonlabored; lungs are clear DATA Labs Hemoglobin 10.1, platelet count 295 BMP is unremarkable with preserved renal function LFTs are within normal limits Imaging Chest x-ray shows no acute disease IMPRESSION & PLAN Sickle cell crisis COVID-19 infection Pain medications for sickle cell crisis No treatment indicated for COVID-19 infection Patient is interested in discharge because of her job interview tomorrow; much this will depend on how her pain is later in the day. She may be interested in a late day discharge should her pain be under better control. Otherwise, continue current symptomatic care. Additional per resident documentation
[2023-11-06 07:22] LABS: Basophils # (auto) 0.06 K/uL (0.00-0.20); Basophils % (auto) 0.9 %; Eosinophils # (auto) 0.47 K/uL (0.00-0.50); Eosinophils % (auto) 7.3 %; Hematocrit (blood only) 26.1 % (37.0-47.0); Hemoglobin 9.4 g/dl (12.0-16.0); Immature Granulocytes # (auto) 0.01 K/uL (0.01-0.20); Immature Granulocytes % (auto) 0.2 %; Lymphocytes # (auto) 3.11 K/uL (1.20-3.40); Lymphocytes % (auto) 48.2 %; Mean Corpuscular Hemoglobin 29.8 pg (25.0-34.0); Mean Corpuscular Volume 82.9 fL (80.0-100.0); Mean Platelet Volume 9.5 fL (9.4-12.4); Monocytes # (auto) 0.78 K/uL (0.11-0.59); Monocytes % (auto) 12.1 %; Neutrophils # (auto) 2.02 K/uL (1.40-6.50); Neutrophils % (auto) 31.3 %; Nucleated RBC # (auto) 0.08 K/uL (0.00-0.12); Nucleated RBC % (auto) 1.2 %; Platelet Count 293 K/uL (130-400); RDW Coefficient of Variation 14.3 % (11.5-14.5); RDW Standard Deviation 42.6 fL (36.4-46.3); Red Blood Count 3.15 M/uL (4.20-5.40); White Blood Count 6.45 K/ul (4.8-10.8)
[2023-11-06] MEDS: SERTRALINE HCL 50 MG TABLET PO SCH (07:41)
[2023-11-06] MEDS: FOLIC ACID 1 MG TAB PO SCH (07:41)
[2023-11-06] MEDS: FLUTICASONE/VILANTEROL 100/25MCG 14 PUFFS/INHALER INH SCH (07:41)
[2023-11-06 07:43] LABS: Alanine Aminotransferase 15 U/L (7-52); Albumin Globulin Ratio 1.5 (0.9-2); Albumin Level 3.5 gm/dl (3.4-5.0); Alkaline Phosphatase 36 U/L (34-104); Anion Gap 4 (3-11); Aspartate Aminotransferase 19 U/L (13-39); BUN Creatinine Ratio 8.2 (10-20); Bilirubin,Total 1.1 mg/dl (0.2-1.0); Blood Urea Nitrogen 4 mg/dl (6-23); Calcium 8.5 mg/dl (8.6-10.3); Carbon Dioxide 25 mmol/L (21-32); Chloride 109 mmol/L (98-107); Creatinine Clr Calc Pharmacy 175.1 ml/min; Est GFR (African American) > 150.0 ml/min; Est GFR (Non-African American) 138.3 ml/min; Globulin 2.4 gm/dl (2.5-4.0); Glucose 80 mg/dl (70-99(Fasting)); Magnesium 1.6 mg/dl (1.7-2.4); Potassium 3.7 mmol/L (3.5-5.1); Sodium 138 mmol/L (136-145); Total Protein 5.9 gm/dl (6.0-8.3)
[2023-11-06] MEDS: MAGNESIUM SULFATE / D5W 1 GM/100 ML BAG IV ONE (08:30)
--- NOTE | 2023-11-06 14:14 | Discharge Summary ---
Date of Service November 06, 2023 Admission HPI Per Admitting Provider 23 y/o female with a PMHx of sickle cell anemia and multiple sickle cell crises presents with generalized pain. Patient with several days of increased pain. Was taking her home dilaudid without much improvement. Has been sick recently with a cold and is having diarrhea. Patient does not have any chest pain or difficulty breathing. Presentation consistent with prior sickle cell crisis. Given 1L IVF, tylenol, dilaudid, and zofran in the ED. Pain improved but still present. Admission Exam Per Admitting Provider Gen: non-toxic appearing patient in NAD, uncomfortable HEENT: AT NC MMM Resp: CTAB no wheezing no increased work of breathing CV: RRR no m/r/g clinically well perfused Abd: soft, non-tender, non-distended MSK: no obvious deformities Skin: no rashes or bruising Neuro: alert and oriented Psych: appropriate mood and affect Principal Diagnosis Sickle cell pain crisis Discharge Exam General: No acute distress HEENT: PERRLA. Normal conjunctiva, anicteric sclera. Oropharynx normal. Respiratory: Normal respiratory effort, CTABL. Cardiovascular: RRR without murmurs, gallops, or rubs. No pedal edema. GI: Soft abdomen with normal bowel sounds heard on auscultation. Nontender x4 quadrants Neuro: Alert and oriented x3. Discharge Data Allergies Allergy/AdvReac Type Severity Reaction Status Date / Time peanut Allergy Intermediate ITCHY HIVES Verified 07/21/23 12:44 Consultations 11/05/23 05:19 ED Decision to Admit Stat Hospital Course (1) Sickle cell disease with crisis: 23 y/o female presenting with several days of acute pain consistent with sickle cell acute pain crisis. Patient is afebrile, no evidence of acute chest syndrome. Dilaudid 0.5 mg IV q15M while in the ED. Narcan ordered. Fluid resuscitated with 2L NS bolus. Started on mIVF with 1/2 NSS @ 125 mL/hr. - continue Dilaudid 0.5 mg Q3H, 1 mg IV Q4H PRN for pain - continue mIVF with 1/2 NS @ 125 mL/hr - Narcan for oversedation/respiratory depression - Tylenol PRN, Zofran PRN, Miralax PRN (2) COVID-19 virus infection: Patient with cold symptoms for several days. BioFire positive for Covid. Likely triggered sickle cell crisis. No respiratory distress or hypoxia. No treatment indicated at this time. (3) Asthma: - continue symbicort PRN for SOB/wheezing (4) Anxiety: - continue sertraline 25 mg daily Plan Code status: full DVT ppx: low risk, ambulation, SCDs FENGI: regular diet, IVF 1/2 NS @ 125 mL/hr Dispo: MedSurg tele Total Time Total Time Spent Total Time Spent (In Minutes): 28 Discharge Plan Discharge Items Patient Disposition: Home - Self-Care Reason For Visit: SICKLE CELL PAIN CRISIS Discharge Diagnosis: sickle cell pain crisis Condition on Discharge: Good Activity: Per Instructions section Non-emergency contact: Primary Care Provider Call non-emergency contact if: you have any medication questions, your symptoms worsen and your pain is concerning for you Follow-up/Referrals: [facility] [Primary Care Provider] - (Please contact [facility] to schedule your hospital discharge follow up. Per their office, you will need a 40 minute appointment. Thank you! ) Diet: Regular Addtl Attending Provider Instructions: You were admitted to the hospital for a sickle cell pain crisis in the setting of COVID infection. You were treated with IV pain medications and IV fluids. A discharge summary will be sent to your primary care physician to ensure continuity of care. Please bring this discharge summary with you to your next office appointment so that your provider can review it at that time. Medications: Your medication list has been reviewed and reconciled upon discharge to ensure accuracy and continuity of care. An updated list of all your medications is included with your hospital discharge paperwork. Please review this list closely and make note of any changes to your medications. - No changes were made to your home medications. - We sent a short prescription of your home oral Dilaudid to the pharmacy. Continue taking your Dilaudid 2 mg every 4 hours as before. - You should continue to use your PO Dilaudid as needed for pain. If your symptoms change or worsen and you think you may require higher doses or IV pain medications, you should come back to the ER/hospital. Follow up appointments: - Make a follow up appointment with your PCP within the next week. It is very important that you follow up with them shortly after discharge from the hospital . - Keep all of your follow up appointments as already scheduled. If you cannot make an appointment, notify your provider. CONTACT YOUR PRIMARY CARE PROVIDER if you experience any of the following: - Difficulty following your treatment plan - Difficulty taking any of your medications CALL 911 OR GO TO THE EMERGENCY DEPARTMENT if you experience any of the following: - Sudden, severe abdominal pain or nausea/vomiting - Severe chest pain or chest pain that radiates to your jaw or arm - Sudden, severe shortness of breath or difficulty breathing Pending Studies at Discharge: No Stand-Alone Forms: My [facility], Smoking Cessation Medications and DC Order Prescriptions: New hydromorphone 2 mg tablet 2 mg PO Q4H PRN (Reason: pain) Qty: 20 0RF Continued cetirizine [Zyrtec] 10 mg tablet 10 mg PO HS PRN (Reason: Congestion) acetaminophen 325 mg tablet 650 mg PO DIRECTED PRN (Reason: Pain) budesonide-formoterol [Symbicort] 80-4.5 mcg/actuation Hfa Aerosol Inhaler 2 puff INHALATION BID PRN (Reason: Shortness Of Breath Or Wheezing) Adakveo 10 mg/mL Solution See Rx Instructions .ROUTE .COMPLEX Rx Instructions: infusion monthly per pt folic acid 1 mg tablet 5 mg PO DAILY sertraline tablet 25 mg PO DAILY ibuprofen 800 mg tablet 800 mg PO TID hydromorphone [Dilaudid] 2 mg tablet 2 mg PO Q4H PRN (Reason: pain) Discharge Orders: Discharge Order (Routine); Ordered 11/06/23 Ordered By: Azucena Rand Admission Data Admit Date/Time: 11/05/23 05:31 Attending Provider: Alana Rodrigez Admit Provider: Susan Mathis Primary Care Provider: [facility] Other Providers: Steven Rodgers Other Interventions: Discharge Summary Assessment (RN) Last Done: 11/06/23 09:39 Supervising Physician Co-Signing Physician Notes I personally examined the patient and verified knox points of history and exam, discussed case, and agree with decision making and plan documented by Dr. Rand. Recommend patient on admission for sickle cell pain crisis in setting of recent COVID-19 infection. Patient reports improvement of pain and desire to go home for job interview today. Prescription for Dilaudid 2 mg p.o. #20 provided on discharge, reviewed PDMP. Resident Activity Tracking Resident Involvement: Resident Care Provided Care Provided: Adult Hospital Medicine
== END 2023-11-06 10:33 | disposition home or self-care (01) | DRG 811 ==
LOC: ED 03:26 → INTOOBSV 05:31 → SUATTDRO 05:31 → EDINP 05:31 → 2S 05:54

== ENCOUNTER 2023-12-09 06:13 | Inpatient (IN) ==
[2023-12-09] MEDS: KETOROLAC TROMETHAMINE 15 MG/ML VIAL IV ONE (06:52)
[2023-12-09] MEDS: SODIUM CHLORIDE 0.9% 1,000 ML IV ONE (06:53)
[2023-12-09 07:07] LABS: Basophils # (auto) 0.09 K/uL (0.00-0.20); Basophils % (auto) 0.6 %; Eosinophils # (auto) 0.46 K/uL (0.00-0.50); Hematocrit (blood only) 31.3 % (37.0-47.0); Hemoglobin 11.5 g/dl (12.0-16.0); Immature Granulocytes # (auto) 0.05 K/uL (0.01-0.20); Immature Granulocytes % (auto) 0.3 %; Lymphocytes # (auto) 1.63 K/uL (1.20-3.40); Lymphocytes % (auto) 10.6 %; Mean Corpuscular Hemoglobin 30.9 pg (25.0-34.0); Mean Corpuscular Hgb Conc 36.7 g/dL (32.0-36.0); Mean Corpuscular Volume 84.1 fL (80.0-100.0); Mean Platelet Volume 9.4 fL (9.4-12.4); Monocytes # (auto) 1.52 K/uL (0.11-0.59); Monocytes % (auto) 9.9 %; Neutrophils # (auto) 11.67 K/uL (1.40-6.50); Neutrophils % (auto) 75.6 %; Nucleated RBC # (auto) 0.02 K/uL (0.00-0.12); Nucleated RBC % (auto) 0.1 %; Platelet Count 294 K/uL (130-400); RDW Coefficient of Variation 14.6 % (11.5-14.5); RDW Standard Deviation 45.1 fL (36.4-46.3); Red Blood Count 3.72 M/uL (4.20-5.40); White Blood Count 15.42 K/ul (4.8-10.8)
--- NOTE | 2023-12-09 07:26 | Emergency Department Note ---
Impression & Plan Sickle-cell disease with pain, Sickle cell disease, Upper respiratory infection ED Provider Note NAME: SYMONE SAN AGE: 23 SEX: F : 2000 ARRIVES VIA: Walk-In INFORMANT: Patient, ED PROVIDER(S): Emory Rooney MD CHIEF COMPLAINT: Cough, congestion, sickle cell pain HPI: This is a 23-year-old female with history of sickle cell disease presenting for cough and congestion. Patient states that she has a "severe cold "that is worse than previous viral syndromes that she has had before. She notes that going on since Thursday, 4 days ago. She notes she has had cough, congestion, sore throat. Tightness in her chest without shortness of breath. She has pains in all of her joints similar to previous sickle cell pain. ROS: See above HPI for pertinent positives & negatives. A total of 10 systems reviewed and were otherwise negative. PHYSICAL EXAMINATION: General: resting comfortably in no acute distress Head: Normocephalic and atraumatic Eyes: Normal inspection, extraocular muscles intact Ear, nose, throat: Normal external exam Neck: Normal range of motion Respiratory: lungs clear to auscultation bilaterally Cardiovascular: Regular rate/rhythm, no murmur GI: soft, nontender, no guarding or rebound Extremities: nontender, moves all extremities Neuro: The patient awake and alert, appropriately conversive, no focal deficits, symmetric faces Skin: Warm, dry, and intact MEDICAL DECISION MAKING: This is a 23-year-old female presenting for cough, congestion and joint pain. Patient states she never had acute chest before. Will do x-ray to help rule this out today. Will get basic blood work including reticulocyte count. Will do viral panel here. Will give pain control and fluids. -Leukocytosis noted up to 15, anemia up to 11.5 without reticulocyte crisis -Lab work within normal limits no transaminitis or lipase elevation -Negative for viral panel -Chest Xray independently interpreted by me showing no pneumothorax, focal opacity, or pleural effusions. -Patient told of her negative workup despite pain medication wean Toradol, Dilaudid x 2 she still does not have appropriate pain control. She mentions that if she needs higher doses of Dilaudid. Ordered for 1 mg of Dilaudid again without improvement. Will admit for sickle cell pain with otherwise reassuring workup Differential diagnosis: Sickle cell crisis, acute chest, pneumonia, pressure infection ER treatment provided: See below Diagnostics interpreted by me: ECG: None Cardiac Monitoring: An order was placed for continuous cardiac monitoring. The monitor shows a rate of 82 with sinus rhythm. Laboratory studies: As stated above and show below. Imaging studies: See below. Past Med/Surg History Medical History Sickle cell crisis Constipation Back pain Parainfluenza Sickle cell crisis Anxiety Seasonal allergies Sickle cell anemia with crisis COVID-19 Influenza A Leukocytosis Pneumonia Sepsis Splenomegaly Abnormal LFTs Transaminitis Sickle cell crisis Vaginal ulceration Sepsis Pyelonephritis Asthma Sickle cell anemia Surgical History No pertinent past surgical history Family History Brother Sickle cell anemia Social History Smoking Status: Never smoker Second Hand Exposure: No; Do You Dip or Chew Tobacco: No; Hx Alcohol Use: No Hx Substance Use: No Preferred Language: Kiswahili Communication Ability: Effective Beeswax Bleacher Required: No Beliefs That Will Affect Care: None marital status: Single Current Living Situation: Alone Current Living Situation Comment: roommates - school Feels Safe at Home: Yes Assistive Devices: Glasses Allergies Allergies Allergy/AdvReac Type Severity Reaction Status Date / Time peanut Allergy Intermediate ITCHY HIVES Verified 07/21/23 12:44 Home Meds Home Medications Medication Instructions Recorded Confirmed cetirizine 10 mg tablet (Zyrtec) 10 mg PO HS PRN Congestion 04/18/20 12/09/23 acetaminophen 325 mg tablet 650 mg PO DIRECTED PRN Pain 12/13/21 12/09/23 crizanlizumab-tmca 10 mg/mL See Rx Instructions .Route .COMPLEX 06/30/22 12/09/23 intravenous solution (Adakveo) budesonide-formoterol HFA 80 2 puff inhalation BID PRN 12/14/22 12/09/23 mcg-4.5 mcg/actuation aerosol Shortness Of Breath Or Wheezing inhaler (Symbicort) folic acid 1 mg tablet 5 mg PO DAILY 05/25/23 12/09/23 sertraline 25 mg PO DAILY 07/21/23 12/09/23 ibuprofen 800 mg tablet 800 mg PO TID 09/16/23 12/09/23 hydromorphone 2 mg tablet 2 mg PO Q4H PRN pain 11/05/23 12/09/23 (Dilaudid) Previous Rx's Medication Instructions Recorded hydromorphone 2 mg tablet 2 mg PO Q4H PRN pain #20 tabs 11/06/23 Results & Data (ED) Vital Signs Vital Signs - 24 hr 12/09/23 06:20 12/09/23 06:32 12/09/23 09:42 Temperature 36.5 C Temperature Source Oral Pulse Rate 118 H Pulse Rate [Finger] 99 H 90 Pulse Rhythm [Finger] Regular Pulse Strength [Finger] Normal Respiratory Rate 20 18 20 Respiratory Effort / Characteristics Non-Labored Spontaneous Non-Labored Spontaneous Non-Labored Respiratory Depth Normal Normal Normal Respiratory Pattern Regular Blood Pressure 120/70 Blood Pressure [Right Arm] 124/94 120/89 Blood Pressure Mean 86 Blood Pressure Mean [Right Arm] 104 99 Blood Pressure Position [Right Arm] Lying Pulse Oximetry 100 99 97 Oxygen Delivery Method Room Air Room Air Room Air Sepsis Recent Fever Within 48 Hours No Sepsis New/Unexplained Change in Mental Status N/A Sepsis Action Taken by Nursing No Action Required 12/09/23 09:57 12/09/23 10:05 12/09/23 10:59 Temperature Temperature Source Pulse Rate 86 Pulse Rate [Finger] 89 92 H Pulse Rhythm [Finger] Pulse Strength [Finger] Respiratory Rate 20 20 Respiratory Effort / Characteristics Non-Labored Non-Labored Respiratory Depth Normal Normal Respiratory Pattern Blood Pressure Blood Pressure [Right Arm] 103/82 125/98 Blood Pressure Mean Blood Pressure Mean [Right Arm] 89 107 Blood Pressure Position [Right Arm] Pulse Oximetry 97 99 Oxygen Delivery Method Room Air Room Air Sepsis Recent Fever Within 48 Hours Sepsis New/Unexplained Change in Mental Status Sepsis Action Taken by Nursing Laboratory Data 12/09/23 06:45 12/09/23 06:45 Lab Results 12/09/23 12/09/23 12/09/23 Range/Units 06:45 06:45 06:45 WBC 15.42 H (4.8-10.8) K/ul RBC 3.72 L (4.20-5.40) M/uL Hgb 11.5 L (12.0-16.0) g/dl Hct 31.3 L (37.0-47.0) % MCV 84.1 (80.0-100.0) fL MCH 30.9 (25.0-34.0) pg MCHC 36.7 H (32.0-36.0) g/dL RDW Std Deviation 45.1 (36.4-46.3) fL RDW Coeff of Kashif 14.6 H (11.5-14.5) % Plt Count 294 (130-400) K/uL MPV 9.4 (9.4-12.4) fL Immature Gran % (Auto) 0.3 % Neut % (Auto) 75.6 % Lymph % (Auto) 10.6 % [place] % (Auto) 9.9 % Eos % (Auto) 3.0 % Baso % (Auto) 0.6 % Reticulocyte % (Auto) 6.22 H Cancelled (0.50-2.00) % Neut # (Auto) 11.67 H (1.40-6.50) K/uL Lymph # (Auto) 1.63 (1.20-3.40) K/uL [place] # (Auto) 1.52 H (0.11-0.59) K/uL Eos # (Auto) 0.46 (0.00-0.50) K/uL Baso # (Auto) 0.09 (0.00-0.20) K/uL Reticulocyte # 0.230 H Cancelled (0.020-0.100) 10^6/uL Immature Gran # (Auto) 0.05 (0.01-0.20) K/uL Absolute Nucleated RBC 0.02 (0.00-0.12) K/uL Nucleated RBC % (auto) 0.1 % Sodium 135 L (136-145) mmol/L Potassium 3.4 L (3.5-5.1) mmol/L Chloride 105 (98-107) mmol/L Carbon Dioxide 22 (21-32) mmol/L Anion Gap 8 (3-11) BUN 8 (6-23) mg/dl Creatinine 0.54 L (0.6-1.2) mg/dl Est Cr Clr Drug Dosing 164.8 ml/min Est GFR ( Amer) > 150.0 ml/min Est GFR (Non-Af Amer) 133.9 ml/min BUN/Creatinine Ratio 14.8 (10-20) Glucose 98 (70-99(Fasting)) mg/dl Calcium 9.6 (8.6-10.3) mg/dl Total Bilirubin 1.4 H (0.2-1.0) mg/dl Direct Bilirubin 0.3 H (0-0.2) mg/dl AST 19 (13-39) U/L ALT 13 (7-52) U/L Alkaline Phosphatase 54 (34-104) U/L Total Protein 7.6 (6.0-8.3) gm/dl Albumin 4.3 (3.4-5.0) gm/dl Lipase 8 L (11-82) U/L Adenovirus (PCR) Not Detected (NotDetected) B. pertussis DNA (PCR) Not Detected (NotDetected) B.parapertussis DNA PCR Not Detected (NotDetected) C. pneumoniae DNA (PCR) Not Detected (NotDetected) Coronavirus OC43 (PCR) Not Detected (NotDetected) Coronavirus HKU1 (PCR) Not Detected (NotDetected) Coronavirus 229E (PCR) Not Detected (NotDetected) SARS-CoV-2 (PCR) Not Detected (NotDetected) Coronavirus NL63 (PCR) Not Detected (NotDetected) Human Metapneumovir PCR Not Detected (NotDetected) Influenza Type A (PCR) Not Detected (NotDetected) Influenza Type B (PCR) Not Detected (NotDetected) M. pneumoniae (PCR) Not Detected (NotDetected) Parainfluenza 1 (PCR) Not Detected (NotDetected) Parainfluenza 2 (PCR) Not Detected (NotDetected) Parainfluenza 3 (PCR) Not Detected (NotDetected) Parainfluenza 4 (PCR) Not Detected (NotDetected) RSV (PCR) Not Detected (NotDetected) Entero/Rhino (PCR) Not Detected (NotDetected) Administered Medications Acetaminophen (Acetaminophen 325 Mg Tab) 650 mg PO Q6H PRN PRN Reason: mild pain (1-3) Stop: 01/08/24 13:31 Last Admin: 12/09/23 13:58 Dose: 650 mg Documented By: ES Cephalexin HCl (Cephalexin 500 Mg Cap) 500 mg PO QID [facility]; Protocol Stop: 12/16/23 13:31 Last Admin: 12/09/23 13:58 Dose: 500 mg Documented By: ES Enoxaparin Sodium (Enoxaparin Inj 40 Mg/0.4 Ml Syr) 40 mg SQ Q24H ROBYN Stop: 01/08/24 11:59 Last Admin: 12/09/23 11:33 Dose: 40 mg Documented By: ES Folic Acid (Folic Acid 1 Mg Tab) 5 mg PO DAILY [facility] Stop: 01/08/24 13:31 Last Admin: 12/09/23 13:59 Dose: 5 mg Documented By: ES Hydromorphone HCl (Hydromorphone Inj 1 Mg/Ml Syringe) 1 mg IV Q4H PRN PRN Reason: Pain (4-10) Stop: 12/23/23 13:31 Last Admin: 12/09/23 13:58 Dose: 1 mg Documented By: ES Ibuprofen (Ibuprofen 800 Mg Tab) 800 mg PO TID [facility] Stop: 01/08/24 13:59 Last Admin: 12/09/23 13:59 Dose: 800 mg Documented By: ES Sertraline HCl (Sertraline Hcl 50 Mg Tablet) 25 mg PO DAILY [facility] Stop: 01/08/24 13:31 Last Admin: 12/09/23 13:59 Dose: 25 mg Documented By: ES Discontinued Medications Hydromorphone HCl (Hydromorphone Inj 0.5 Mg/0.5 Ml Syr) 0.5 mg IV NOW STA Stop: 12/09/23 07:24 Last Admin: 12/09/23 07:30 Dose: 0.5 mg Documented By: ES Hydromorphone HCl (Hydromorphone Inj 0.5 Mg/0.5 Ml Syr) 0.5 mg IV NOW STA Stop: 12/09/23 09:06 Last Admin: 12/09/23 09:14 Dose: 0.5 mg Documented By: ES Hydromorphone HCl (Hydromorphone Inj 1 Mg/Ml Syringe) 1 mg IV NOW STA Stop: 12/09/23 09:42 Last Admin: 12/09/23 09:52 Dose: 1 mg Documented By: ES Sodium Chloride (Nss) 1,000 mls @ 999 mls/hr IV .Q1H1M ONE Stop: 12/09/23 07:30 Last Infusion: 12/09/23 07:48 Dose: Infused Documented By: Admin: 12/09/23 06:53 Dose: 999 mls/hr Documented By: OSWALDO Ketorolac Tromethamine (Ketorolac Tromethamine 15 Mg/Ml Vial) 15 mg IV NOW ONE Stop: 12/09/23 06:31 Last Admin: 12/09/23 06:52 Dose: 15 mg Documented By: OSWALDO Ondansetron HCl (Ondansetron Inj 2 Mg/Ml 2 Ml Vial) 4 mg IV NOW STA Stop: 12/09/23 07:24 Last Admin: 12/09/23 07:30 Dose: 4 mg Documented By: LOC Pantoprazole Sodium (Pantoprazole 40 Mg Tab) 40 mg PO NOW STA Stop: 12/09/23 13:33 Last Admin: 12/09/23 13:58 Dose: 40 mg Documented By: LOC Imaging Data Radiologist's Impression: Chest X-Ray 12/09/23 06:29 XR chest 2V PA/lateral CLINICAL HISTORY: PNA vs acute chest COMPARISON STUDY: Chest radiograph November 05, 2023. FINDINGS: Lung volumes are normal. Lungs are clear. There is no pneumothorax or pleural effusion. Cardiac size is normal. Mediastinal contours are normal. There is no evidence for pulmonary edema. IMPRESSION: No acute cardiopulmonary findings. ACT 112: Negative or not required by law. Electronically signed by: Jono Quintero M.D. 12/09/2023 7:26 AM Discharge Plan Visit Data Chief Complaint: Illness Stated Complaint: SEVERE COLD,SICKLE CELL PAIN ED Provider: Emory Rooney Discharge Problem: Sickle-cell disease with pain, Sickle cell disease, Upper respiratory infection Patient Disposition: Admitted As Inpatient Discharge Instructions Interventions: ED Discharge Assessment Last Done: 12/09/23 13:32
[2023-12-09 07:28] LABS: Alanine Aminotransferase 13 U/L (7-52); Albumin Level 4.3 gm/dl (3.4-5.0); Alkaline Phosphatase 54 U/L (34-104); Anion Gap 8 (3-11); Aspartate Aminotransferase 19 U/L (13-39); BUN Creatinine Ratio 14.8 (10-20); Bilirubin Direct 0.3 mg/dl (0-0.2); Bilirubin,Total 1.4 mg/dl (0.2-1.0); Blood Urea Nitrogen 8 mg/dl (6-23); Calcium 9.6 mg/dl (8.6-10.3); Carbon Dioxide 22 mmol/L (21-32); Chloride 105 mmol/L (98-107); Creatinine Clr Calc Pharmacy 164.8 ml/min; Est GFR (African American) > 150.0 ml/min; Est GFR (Non-African American) 133.9 ml/min; Glucose 98 mg/dl (70-99(Fasting)); Lipase 8 U/L (11-82); Potassium 3.4 mmol/L (3.5-5.1); Sodium 135 mmol/L (136-145); Total Protein 7.6 gm/dl (6.0-8.3)
[2023-12-09] MEDS: HYDROmorphone INJ 0.5 MG/0.5 ML SYR IV STA ×2 (07:30→09:14)
[2023-12-09] MEDS: ONDANSETRON INJ 2 MG/ML 2 ML VIAL IV STA (07:30)
[2023-12-09 07:56] LABS: Adenovirus PCR Not Detected (NotDetected); Bordetella parapertussis PCR Not Detected (NotDetected); Bordetella pertussis PCR Not Detected (NotDetected); Chlamydia pneumoniae PCR Not Detected (NotDetected); Coronavirus 229E PCR Not Detected (NotDetected); Coronavirus CoV-2 (COVID19)PCR Not Detected (NotDetected); Coronavirus HKU1 PCR Not Detected (NotDetected); Coronavirus NL63 PCR Not Detected (NotDetected); Coronavirus OC43PCR Not Detected (NotDetected); Human Metapneumovirus PCR Not Detected (NotDetected); Influenza A PCR Not Detected (NotDetected); Influenza B PCR Not Detected (NotDetected); Mycoplasma pneumoniae PCR Not Detected (NotDetected); Parainfluenza Virus 1 PCR Not Detected (NotDetected); Parainfluenza Virus 2 PCR Not Detected (NotDetected); Parainfluenza Virus 3 PCR Not Detected (NotDetected); Parainfluenza Virus 4 PCR Not Detected (NotDetected); Respiratory Syncytial VirusPCR Not Detected (NotDetected); Rhinovirus/Enterovirus PCR Not Detected (NotDetected)
[2023-12-09 08:07] LABS: Reticulocyte % 6.22 % (0.50-2.00)
[2023-12-09] MEDS: HYDROmorphone INJ 1 MG/ML SYRINGE IV STA (09:52)
[2023-12-09] MEDS ORDERED: ACETAMINOPHEN 325 MG TAB PO PRN (11:19)
[2023-12-09] MEDS ORDERED: ALUMINUM/MAGNESIUM SUSP 30 ML UDC PO PRN (11:19)
[2023-12-09] MEDS: ENOXAPARIN INJ 40 MG/0.4 ML SYR SQ SCH (11:33)
--- NOTE | 2023-12-09 12:31 | History & Physical Report ---
Date of Service December 09, 2023 Assessment & Plan (1) Sickle-cell disease with pain: (2) Leukocytosis: (3) Asthma: (4) Hidradenitis: Plan 23 yo female with h/o sickle cell disease, chronically on Dilaudid 2mg Q4 hrs PRN, asthma presents with generalized pain, possibly asthma flair, left axillary adenitis #sickle cell disease, not sure about crisis, stable hemoglobin, retic count not elevated, reports shortage of po Dilaudid as outpatient IV Dilaudid, po Dilaudid, ibuprofen , tylenol, folic acid # leukocytosis due to axillary hydradenitis start po Keflex # asthma , seasonal allergies continue Symbicort, Albuterol nebs, Zyrtec # depression continue Sertraline 25 mg daily History of Present Illness Chief Complaint: generalized pain, SOB, chest tightness Primary Care Provider: [facility] 23 yo female with h/o sickle cell disease, she is a student , patient follows at [facility] hematology in [facility] , last visit a week ago, received IV infusion Adakveo, was admitted here almost a month ago with COVID infection and pain crisis, at this time reports chest tightness nad chills, viral panel is negative, Hgb is stable, has elevated WBC count, cough, greenish phlegm, she using Symbicort and Albuterol at home with some improvement in her respiratory symptoms, was given IV Dilaudid in ER, reports improvement in overall pain. Reports boils in her left underarm , causing pain. Patient reports shortage of Dilaudid, was not able to fill her prescription at [facility] Allergies Allergy/AdvReac Type Severity Reaction Status Date / Time peanut Allergy Intermediate ITCHY HIVES Verified 07/21/23 12:44 Home Medications Medication Instructions Recorded Confirmed Type cetirizine 10 mg tablet (Zyrtec) 10 mg PO HS PRN Congestion 04/18/20 12/09/23 History acetaminophen 325 mg tablet 650 mg PO DIRECTED PRN Pain 12/13/21 12/09/23 History crizanlizumab-tmca 10 mg/mL See Rx Instructions .Route .COMPLEX 06/30/22 12/09/23 History intravenous solution (Adakveo) budesonide-formoterol HFA 80 2 puff inhalation BID PRN 12/14/22 12/09/23 History mcg-4.5 mcg/actuation aerosol Shortness Of Breath Or Wheezing inhaler (Symbicort) folic acid 1 mg tablet 5 mg PO DAILY 05/25/23 12/09/23 History sertraline 25 mg PO DAILY 07/21/23 12/09/23 History ibuprofen 800 mg tablet 800 mg PO TID 09/16/23 12/09/23 History hydromorphone 2 mg tablet 2 mg PO Q4H PRN pain 11/05/23 12/09/23 History (Dilaudid) hydromorphone 2 mg tablet 2 mg PO Q4H PRN pain #20 tabs 11/06/23 12/09/23 Rx Past Med/Surg History Medical History Sickle cell crisis Constipation Back pain Parainfluenza Sickle cell crisis Anxiety Seasonal allergies Sickle cell anemia with crisis COVID-19 Influenza A Leukocytosis Pneumonia Sepsis Splenomegaly Abnormal LFTs Transaminitis Sickle cell crisis Vaginal ulceration Sepsis Pyelonephritis Asthma Sickle cell anemia Surgical History No pertinent past surgical history Family History Brother Sickle cell anemia Social History Smoking Status: Never smoker Second Hand Exposure: No; Do You Dip or Chew Tobacco: No; Tobacco Cessation Education Requested by Patient: No Hx Alcohol Use: No Hx Substance Use: No Preferred Language: Frisian Communication Ability: Effective Hospital Cleaning Specialist Required: No Beliefs That Will Affect Care: None marital status: Single Current Living Situation: Alone Current Living Situation Comment: roommates - school Other Information That Helps Us Care for You: No Feels Safe at Home: Yes Safety Concerns: Feels Safe At This Time Assistive Devices: Glasses Review of Systems Constitutional: generalized pain, chills, denies fever Eyes: as per Subjective / HPI Ear, Nose, Mouth, Throat: postnasal drip, denies earache, reports nasal congestion, no sore throat Respiratory: reports cough, chest tightness Cardiovascular: Additional Comments: chest tightness Gastrointestinal: reports nausea, no vomiting ,no abdominal pain , no diarrhea Genitourinary: no dysuria Musculoskeletal: generailized pain Neurologic: no weakness, no numbness, AAO X3 Psychiatric: denies depression Physical Exam Physical Exam: patient is alert, awake, oriented times 3 head atraumatic, normocephalic neck supple, mo JVD, no thyromegaly, lymphadenopathy Lungs decreased breath sounds at bases heart S1S2 regular, no murmur, no gallops abdomen soft, nt, nd, bs present extremities no edema , pulses present Results & Data Results & Data Vital Signs (Past 12 Hours) Vital Signs Temp Pulse Pulse Resp BP BP Pulse Ox 12/09/23 11:38 12/09/23 11:38 36.9 C 74 20 125/98 98 12/09/23 11:37 74 20 125/98 99 12/09/23 10:59 92 H 20 125/98 99 12/09/23 10:05 89 20 103/82 97 12/09/23 09:57 86 12/09/23 09:42 90 20 120/89 97 12/09/23 06:32 99 H 18 124/94 99 12/09/23 06:20 36.5 C 118 H 20 120/70 100 O2 Del Method 12/09/23 11:38 Room Air 12/09/23 11:38 Room Air 12/09/23 11:37 Room Air 12/09/23 10:59 Room Air 12/09/23 10:05 Room Air 12/09/23 09:57 12/09/23 09:42 Room Air 12/09/23 06:32 Room Air 12/09/23 06:20 Room Air Laboratory Results Abnormal lab results 12/09/23 Range/Units 06:45 WBC 15.42 H (4.8-10.8) K/ul RBC 3.72 L (4.20-5.40) M/uL Hgb 11.5 L (12.0-16.0) g/dl Hct 31.3 L (37.0-47.0) % MCHC 36.7 H (32.0-36.0) g/dL RDW Coeff of Kashif 14.6 H (11.5-14.5) % Reticulocyte % (Auto) 6.22 H (0.50-2.00) % Neut # (Auto) 11.67 H (1.40-6.50) K/uL Lyman # (Auto) 1.52 H (0.11-0.59) K/uL Reticulocyte # 0.230 H (0.020-0.100) 10^6/uL Sodium 135 L (136-145) mmol/L Potassium 3.4 L (3.5-5.1) mmol/L Creatinine 0.54 L (0.6-1.2) mg/dl Total Bilirubin 1.4 H (0.2-1.0) mg/dl Direct Bilirubin 0.3 H (0-0.2) mg/dl Lipase 8 L (11-82) U/L Diagnostic Findings Chest X-Ray 12/09/23 06:29 XR chest 2V PA/lateral CLINICAL HISTORY: PNA vs acute chest COMPARISON STUDY: Chest radiograph November 05, 2023. FINDINGS: Lung volumes are normal. Lungs are clear. There is no pneumothorax or pleural effusion. Cardiac size is normal. Mediastinal contours are normal. There is no evidence for pulmonary edema. IMPRESSION: No acute cardiopulmonary findings. ACT 112: Negative or not required by law. Electronically signed by: Jono Quintero M.D. 12/09/2023 7:26 AM Code Status & VTE Plan Code Status full code VTE Prophylaxis Plan VTE Prophylaxis will be ordered: Yes PG Care Time/CCT Total # of Minutes Spent Total Time Spent with Patient: Total time spent is greater than 50% in coordination of care (as documented) at patient's floor/unit and/or counseling patient: Coding Level of Care Code 19144 INT INP/OBS CARE 3/75MIN Diagnoses Sickle-cell disease with pain D57.00 Leukocytosis D72.829 Asthma J45.909 Hidradenitis L73.2
[2023-12-09] MEDS ORDERED: ALBUTEROL 0.083% NEBU SOLN 3 ML VIAL NEB PRN (13:32)
[2023-12-09] MEDS ORDERED: CETIRIZINE HCL 10 MG TABLET PO PRN (13:32)
[2023-12-09] MEDS: cephALEXin 500 MG CAP PO SCH (13:58)
[2023-12-09] MEDS: HYDROmorphone INJ 1 MG/ML SYRINGE IV PRN (13:58)
[2023-12-09] MEDS: PANTOprazole 40 MG TAB PO STA (13:58)
[2023-12-09] MEDS: ACETAMINOPHEN 325 MG TAB PO PRN (13:58)
[2023-12-09] MEDS: SERTRALINE HCL 50 MG TABLET PO SCH (13:59)
[2023-12-09] MEDS: IBUPROFEN 800 MG TAB PO SCH (13:59)
[2023-12-09] MEDS: FOLIC ACID 1 MG TAB PO SCH (13:59)
[2023-12-09 16:27] LABS: Basophils # (auto) 0.09 K/uL (0.00-0.20); Basophils % (auto) 0.7 %; Eosinophils # (auto) 0.57 K/uL (0.00-0.50); Eosinophils % (auto) 4.7 %; Hematocrit (blood only) 31.3 % (37.0-47.0); Hemoglobin 11.3 g/dl (12.0-16.0); Immature Granulocytes # (auto) 0.05 K/uL (0.01-0.20); Immature Granulocytes % (auto) 0.4 %; Lymphocytes # (auto) 2.22 K/uL (1.20-3.40); Lymphocytes % (auto) 18.3 %; Mean Corpuscular Hemoglobin 30.5 pg (25.0-34.0); Mean Corpuscular Hgb Conc 36.1 g/dL (32.0-36.0); Mean Corpuscular Volume 84.6 fL (80.0-100.0); Mean Platelet Volume 9.8 fL (9.4-12.4); Monocytes # (auto) 1.37 K/uL (0.11-0.59); Monocytes % (auto) 11.3 %; Neutrophils # (auto) 7.82 K/uL (1.40-6.50); Neutrophils % (auto) 64.6 %; Nucleated RBC # (auto) 0.03 K/uL (0.00-0.12); Nucleated RBC % (auto) 0.2 %; Platelet Count 294 K/uL (130-400); RDW Coefficient of Variation 14.6 % (11.5-14.5); RDW Standard Deviation 44.6 fL (36.4-46.3); White Blood Count 12.12 K/ul (4.8-10.8)
[2023-12-09 16:37] LABS: Anion Gap 7 (3-11); Blood Urea Nitrogen 8 mg/dl (6-23); Calcium 9.1 mg/dl (8.6-10.3); Carbon Dioxide 24 mmol/L (21-32); Chloride 107 mmol/L (98-107); Creatinine Clr Calc Pharmacy 156.2 ml/min; Est GFR (African American) > 150.0 ml/min; Est GFR (Non-African American) 131.6 ml/min; Glucose 97 mg/dl (70-99(Fasting)); Potassium 3.7 mmol/L (3.5-5.1); Sodium 138 mmol/L (136-145)
[2023-12-09] MEDS: POLYETHYLENE (MIRALAX) 17 GM PACK PO PRN (21:40)
[2023-12-09] MEDS: ONDANSETRON INJ 2 MG/ML 2 ML VIAL IV PRN (23:11)
[2023-12-10] MEDS: HYDROmorphone INJ 0.5 MG/0.5 ML SYR IV ONE (00:31)
[2023-12-10] MEDS: FLUTICASONE/VILANTEROL 100/25MCG 14 PUFFS/INHALER INH SCH (07:40)
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
[2023-12-10 08:14] LABS: Basophils # (auto) 0.09 K/uL (0.00-0.20); Eosinophils # (auto) 0.89 K/uL (0.00-0.50); Eosinophils % (auto) 9.6 %; Hematocrit (blood only) 30.3 % (37.0-47.0); Hemoglobin 11.3 g/dl (12.0-16.0); Immature Granulocytes # (auto) 0.02 K/uL (0.01-0.20); Immature Granulocytes % (auto) 0.2 %; Lymphocytes # (auto) 2.48 K/uL (1.20-3.40); Lymphocytes % (auto) 26.8 %; Mean Corpuscular Hemoglobin 30.8 pg (25.0-34.0); Mean Corpuscular Hgb Conc 37.3 g/dL (32.0-36.0); Mean Corpuscular Volume 82.6 fL (80.0-100.0); Mean Platelet Volume 9.1 fL (9.4-12.4); Monocytes # (auto) 1.04 K/uL (0.11-0.59); Monocytes % (auto) 11.2 %; Neutrophils # (auto) 4.75 K/uL (1.40-6.50); Neutrophils % (auto) 51.2 %; Nucleated RBC # (auto) 0.02 K/uL (0.00-0.12); Nucleated RBC % (auto) 0.2 %; Platelet Count 303 K/uL (130-400); RDW Coefficient of Variation 14.5 % (11.5-14.5); RDW Standard Deviation 43.4 fL (36.4-46.3); Red Blood Count 3.67 M/uL (4.20-5.40); White Blood Count 9.27 K/ul (4.8-10.8)
[2023-12-10 08:34] LABS: BUN Creatinine Ratio 12.9 (10-20); Calcium 9.3 mg/dl (8.6-10.3); Creatinine Clr Calc Pharmacy 143.6 ml/min; Est GFR (African American) 148.3 ml/min; Potassium 4.3 mmol/L (3.5-5.1)
[2023-12-10] MEDS: HYDROmorphone HCL 2 MG TAB PO PRN (13:13)
--- NOTE | 2023-12-10 20:19 | Billing Data ---
Date of Service December 10, 2023 Coding Level of Care Code 86836 SUB INP/OBS CARE
[2023-12-10] MEDS: SODIUM CHLORIDE 0.45 % 1,000 ML IV SCH (21:15)
[2023-12-10] MEDS: HYDROmorphone INJ 1 MG/ML SYRINGE IV PRN (22:04)
[2023-12-11 08:40] LABS: Basophils % (auto) 1.1 %; Eosinophils # (auto) 1.08 K/uL (0.00-0.50); Eosinophils % (auto) 12.1 %; Hematocrit (blood only) 27.9 % (37.0-47.0); Immature Granulocytes # (auto) 0.03 K/uL (0.01-0.20); Immature Granulocytes % (auto) 0.3 %; Lymphocytes # (auto) 2.32 K/uL (1.20-3.40); Lymphocytes % (auto) 25.9 %; Mean Corpuscular Hemoglobin 29.8 pg (25.0-34.0); Mean Corpuscular Hgb Conc 35.8 g/dL (32.0-36.0); Mean Platelet Volume 9.6 fL (9.4-12.4); Monocytes # (auto) 1.06 K/uL (0.11-0.59); Monocytes % (auto) 11.8 %; Neutrophils # (auto) 4.37 K/uL (1.40-6.50); Neutrophils % (auto) 48.8 %; Platelet Count 299 K/uL (130-400); RDW Standard Deviation 45.3 fL (36.4-46.3); Red Blood Count 3.36 M/uL (4.20-5.40); White Blood Count 8.96 K/ul (4.8-10.8)
[2023-12-11 09:07] LABS: Anion Gap 4 (3-11); BUN Creatinine Ratio 12.7 (10-20); Blood Urea Nitrogen 7 mg/dl (6-23); Calcium 8.4 mg/dl (8.6-10.3); Carbon Dioxide 24 mmol/L (21-32); Chloride 109 mmol/L (98-107); Creatinine Clr Calc Pharmacy 161.8 ml/min; Est GFR (African American) > 150.0 ml/min; Est GFR (Non-African American) 133.1 ml/min; Glucose 99 mg/dl (70-99(Fasting)); Potassium 4.2 mmol/L (3.5-5.1); Sodium 137 mmol/L (136-145)
--- NOTE | 2023-12-11 10:05 | Discharge Summary ---
Date of Service December 11, 2023 Admission HPI Per Admitting Provider 23 yo female with h/o sickle cell disease, she is a student , patient follows at [facility] hematology in [facility] , last visit a week ago, received IV infusion Adakveo, was admitted here almost a month ago with COVID infection and pain crisis, at this time reports chest tightness nad chills, viral panel is negative, Hgb is stable, has elevated WBC count, cough, greenish phlegm, she using Symbicort and Albuterol at home with some improvement in her respiratory symptoms, was given IV Dilaudid in ER, reports improvement in overall pain. Reports boils in her left underarm , causing pain. Patient reports shortage of Dilaudid, was not able to fill her prescription at [facility] Admission Exam Per Admitting Provider patient is alert, awake, oriented times 3 head atraumatic, normocephalic neck supple, mo JVD, no thyromegaly, lymphadenopathy Lungs decreased breath sounds at bases heart S1S2 regular, no murmur, no gallops abdomen soft, nt, nd, bs present extremities no edema , pulses present Principal Diagnosis Sickle cell pain crisis Discharge Exam General: well-appearing, no acute distress HEENT: conjunctivae clear without injection, anicteric sclerae, moist mucous membranes Neck: supple, trachea midline, no cervical lymphadenopathy CV: RRR, normal S1 and S2, no murmurs Resp: CTAB, no increased work of breathing, no crackles or wheezes Abd: Soft, nontender, nondistended, no guarding or rebound MSK: Normal bulk of all four extremities Skin: noted pustules and papules of armpit with scarring Ext: no LE peripheral edema or erythema Discharge Data Allergies Allergy/AdvReac Type Severity Reaction Status Date / Time peanut Allergy Intermediate ITCHY HIVES Verified 07/21/23 12:44 Consultations 12/09/23 13:06 ED Decision to Admit Stat Hospital Course (1) Sickle-cell disease with pain: (2) Leukocytosis: (3) Asthma: (4) Hidradenitis: Plan #Sickle cell pain crisis -CXR on admission unconcerning for acute chest -Pain control achieved with Dilaudid 2mg PO q4h PRN + 1mg IV q2h PRN, scheduled ibuprofen + Tylenol PRN -Discharged with home Dilaudid 2mg PO q4h PRN -Hgb 11.5 on admission, 10 at time of discharge -F/u with cord splicer at [facility] #Leukocytosis -WBC down from 15.42 on admission -Resolved at time of discharge, was likely due to recent viral URI #Asthma -Continued Symbicort, albuterol nebulizer, and Zyrtec -No exacerbation during stay #Hidradenitis -Left axillary hidradenitis -Improving with Keflex, will discharge on 10 day total course #Depression -Continued Sertraline 25mg qd Total Time Total Time Spent Total Time Spent (In Minutes): <30 Discharge Plan Discharge Items Patient Disposition: Home - Self-Care Reason For Visit: PAIN MANAGEMENT Discharge Diagnosis: -Sickle cell pain crisis Activity: Resume your previous activity Non-emergency contact: Primary Care Provider and Specialist Call non-emergency contact if: your symptoms worsen Follow-up/Referrals: Gratz,[facility] [Primary Care Provider] - Diet: Regular Addtl Attending Provider Instructions: You were admitted to the hospital for a pain crisis of sickle cell disease. Your pain was treated with Dilaudid both orally and IV. Continue taking Dilaudid orally as needed for pain control. It is also recommended to take ibuprofen and Tylenol in combination for pain, along with remaining well-hydrated. The infection on your armpit, called hidradenitis, seems to be improving with the antibiotic Keflex. You will be discharged on Keflex to complete 10 days in total. Please take Keflex with food every 6 hours until it's complete. Pending Studies at Discharge: No Stand-Alone Forms: My [facility] Medications and DC Order Prescriptions: New cephalexin 500 mg capsule 500 mg PO Q6H 8 Days Qty: 32 0RF Continued hydromorphone 2 mg tablet 2 mg PO Q4H PRN (Reason: pain) Qty: 20 0RF No Action cetirizine [Zyrtec] 10 mg tablet 10 mg PO HS PRN (Reason: Congestion) acetaminophen 325 mg tablet 650 mg PO DIRECTED PRN (Reason: Pain) budesonide-formoterol [Symbicort] 80-4.5 mcg/actuation Hfa Aerosol Inhaler 2 puff INHALATION BID PRN (Reason: Shortness Of Breath Or Wheezing) Adakveo 10 mg/mL Solution See Rx Instructions .ROUTE .COMPLEX Rx Instructions: infusion monthly per pt folic acid 1 mg tablet 5 mg PO DAILY sertraline tablet 25 mg PO DAILY ibuprofen 800 mg tablet 800 mg PO TID hydromorphone [Dilaudid] 2 mg tablet 2 mg PO Q4H PRN (Reason: pain) Admission Data Admit Date/Time: 12/09/23 11:19 Attending Provider: Patrick Robin Admit Provider: Marie Zarco Primary Care Provider: [facility] Other Providers: Marie Zarco Supervising Physician Co-Signing Physician Notes I personally examined the patient and verified all knox points of history and exam, discussed case, and agree with decision making with Dr Correa Seen multiple times today. Pain under reasonable control with IV medicines, every time she expresses a desire to go home, I agree but expressed concern that with her current IV pain medicine needs, she may suffer with the switch to p.o. pain medicinesand that she realizes she should probably stay in the hospital longer. No new symptoms. Vitals noted, in general she is awake and alert somewhat fatigued. Breathing unlabored no accessory muscle use good effort. Skin shows no rashes no pallor or icterus. Neuro without focal deficits Sickle cell with acute pain crisisprobably either due to infected hidradenitis physiologic stress, viral respiratory infection physiologic stress (has asthma but does not appear consistent with a flare of her asthma), or both. This was compounded by not having any p.o. Dilaudid at home to be held to mitigate pain, which probably allowed things to spiral. Improving on Keflexcontinue. IV fluids, IV Dilaudid. prescription sent to pharmacy for Dilaudid p.o.whenever I called yesterday they noted they had it in stock. Continue current care for now, home on p.o. Dilaudid once she shows further improvement. DVT proph - lovenox
[2023-12-11] MEDS: HYDROmorphone INJ 1 MG/ML SYRINGE IV STA (10:20)
--- NOTE | 2023-12-11 17:13 | Billing Data ---
Date of Service December 11, 2023 Coding Level of Care Code 43635 SUB INP/OBS CARE
[2023-12-12 06:40] LABS: Basophils # (auto) 0.11 K/uL (0.00-0.20); Basophils % (auto) 1.2 %; Eosinophils # (auto) 1.14 K/uL (0.00-0.50); Eosinophils % (auto) 12.4 %; Hematocrit (blood only) 26.9 % (37.0-47.0); Immature Granulocytes # (auto) 0.02 K/uL (0.01-0.20); Immature Granulocytes % (auto) 0.2 %; Lymphocytes # (auto) 3.43 K/uL (1.20-3.40); Lymphocytes % (auto) 37.4 %; Mean Corpuscular Hemoglobin 30.4 pg (25.0-34.0); Mean Corpuscular Hgb Conc 37.2 g/dL (32.0-36.0); Mean Corpuscular Volume 81.8 fL (80.0-100.0); Mean Platelet Volume 9.9 fL (9.4-12.4); Monocytes # (auto) 1.03 K/uL (0.11-0.59); Monocytes % (auto) 11.2 %; Neutrophils # (auto) 3.43 K/uL (1.40-6.50); Neutrophils % (auto) 37.6 %; Nucleated RBC # (auto) 0.02 K/uL (0.00-0.12); Nucleated RBC % (auto) 0.2 %; Platelet Count 337 K/uL (130-400); RDW Coefficient of Variation 14.7 % (11.5-14.5); RDW Standard Deviation 43.4 fL (36.4-46.3); Red Blood Count 3.29 M/uL (4.20-5.40); White Blood Count 9.16 K/ul (4.8-10.8)
[2023-12-12 06:50] LABS: Anion Gap 4 (3-11); Calcium 8.5 mg/dl (8.6-10.3); Carbon Dioxide 24 mmol/L (21-32); Chloride 110 mmol/L (98-107); Sodium 138 mmol/L (136-145)
[2023-12-12 06:55] LABS: BUN Creatinine Ratio 10.7 (10-20); Blood Urea Nitrogen 6 mg/dl (6-23); Est GFR (African American) > 150.0 ml/min; Est GFR (Non-African American) 132.4 ml/min; Glucose 90 mg/dl (70-99(Fasting))
[2023-12-12] MEDS: HYDROmorphone INJ 1 MG/ML SYRINGE IV STA (10:46)
[2023-12-12] MEDS: HYDROmorphone INJ 1 MG/ML SYRINGE IV PRN (17:38)
[2023-12-12] MEDS ORDERED: IBUPROFEN 800 MG TAB PO PRN (17:55)
[2023-12-12] MEDS: ACETAMINOPHEN 325 MG TAB PO SCH (18:33)
[2023-12-12] MEDS: HYDROmorphone INJ 2 MG/ML SYR/VIAL IV PRN (23:37)
[2023-12-13 06:33] LABS: Basophils # (auto) 0.15 K/uL (0.00-0.20); Basophils % (auto) 1.5 %; Eosinophils # (auto) 1.31 K/uL (0.00-0.50); Eosinophils % (auto) 13.1 %; Hematocrit (blood only) 28.3 % (37.0-47.0); Immature Granulocytes # (auto) 0.05 K/uL (0.01-0.20); Immature Granulocytes % (auto) 0.5 %; Lymphocytes # (auto) 3.53 K/uL (1.20-3.40); Lymphocytes % (auto) 35.2 %; Mean Corpuscular Hemoglobin 29.9 pg (25.0-34.0); Mean Corpuscular Hgb Conc 35.3 g/dL (32.0-36.0); Mean Corpuscular Volume 84.7 fL (80.0-100.0); Mean Platelet Volume 9.2 fL (9.4-12.4); Monocytes # (auto) 1.15 K/uL (0.11-0.59); Monocytes % (auto) 11.5 %; Neutrophils # (auto) 3.84 K/uL (1.40-6.50); Neutrophils % (auto) 38.2 %; Nucleated RBC # (auto) 0.07 K/uL (0.00-0.12); Nucleated RBC % (auto) 0.7 %; Platelet Count 298 K/uL (130-400); RDW Coefficient of Variation 15.1 % (11.5-14.5); RDW Standard Deviation 45.4 fL (36.4-46.3); Red Blood Count 3.34 M/uL (4.20-5.40); White Blood Count 10.03 K/ul (4.8-10.8)
[2023-12-13 06:49] LABS: Anion Gap 4 (3-11); BUN Creatinine Ratio 8.8 (10-20); Blood Urea Nitrogen 5 mg/dl (6-23); Calcium 8.5 mg/dl (8.6-10.3); Carbon Dioxide 25 mmol/L (21-32); Chloride 109 mmol/L (98-107); Creatinine Clr Calc Pharmacy 156.2 ml/min; Est GFR (African American) > 150.0 ml/min; Est GFR (Non-African American) 131.6 ml/min; Glucose 96 mg/dl (70-99(Fasting)); Potassium 4.2 mmol/L (3.5-5.1); Sodium 138 mmol/L (136-145)
--- NOTE | 2023-12-13 09:01 | Hospitalist Progress Note ---
Date of Service December 13, 2023 Assessment & Plan (1) Sickle-cell disease with pain: (2) Asthma: (3) Hidradenitis: Plan #Sickle cell pain crisis -CXR on admission unconcerning for acute chest -Pain control requiring escalation of opioids- currently Dilaudid 2mg PO q4h PRN + 1.5 mg IV q2h PRN, scheduled ibuprofen + Tylenol PRN -Plan to discharge with home regimen- Dilaudid 2mg PO q4h PRN -Hgb 11.5 on admission, 10 at time of discharge -F/u with network announcer at [facility] #Leukocytosis -WBC down from 15.42 on admission -Resolved at time of discharge, was likely due to recent viral URI #Asthma -Continued Symbicort, albuterol nebulizer, and Zyrtec -No exacerbation during stay #Hidradenitis -Left axillary hidradenitis -Improving with Keflex, will discharge on 10 day total course #Depression -Continued Sertraline 25mg qd Admission and Anticipated Discharge Date Admission Date: December 09, 2023 Supervising Physician Co-Signing Physician Notes I personally examined the patient and verified all knox points of history and exam, discussed case, and agree with decision making with Dr Cuenca ongoing need for IV pain meds, but also wondering about maybe going home later. Vitals noted, in general she is awake and alert somewhat fatigued. Breathing unlabored no accessory muscle use good effort. Skin shows no rashes no pallor or icterus. Neuro without focal deficits Sickle cell with acute pain crisisprobably either due to infected hidradenitis physiologic stress, viral respiratory infection physiologic stress (has asthma but does not appear consistent with a flare of her asthma), or both. This was compounded by not having any p.o. Dilaudid at home to be held to mitigate pain, which probably allowed things to spiral. Improving on Keflexcontinue. IV fluids, IV Dilaudid. prescription sent to pharmacy for Dilaudid p.o.whenever I called previously they noted they had it in stock. Since she was considering going home later todayonly if her pain is under b perry control and she believes p.o. pain meds will be adequateI encouraged her to have her brother supervisor opening and picking her pain medicine prescription before the pharmacy closes today. Continue current care for now, home on p.o. Dilaudid once she shows further improvement. DVT proph - lovenox Subjective Acute events overnight- none. Pt examined at bedside. Has been requiring escalating doses of Dilaudid to control her pain- 1 mg q2h IV PRN -> 1.5 mg q2h IV PRN. Overall baseline pain has decreased to 2/10 but still has bursts of pain scattered throughout day. States in previous hospitalizations in [place] she was discharged once pain controlled without necessarily transitioning to PO medications. Review of Systems Review of Systems: Per HPI/Subjective Physical Exam Physical Exam: General: well-appearing, no acute distress HEENT: conjunctivae clear without injection, anicteric sclerae, moist mucous membranes Neck: supple, trachea midline, no cervical lymphadenopathy CV: RRR, normal S1 and S2, no murmurs Resp: CTAB, no increased work of breathing, no crackles or wheezes Abd: Soft, nontender, nondistended, no guarding or rebound MSK: Normal bulk of all four extremities Skin: noted pustules and papules of armpit with scarring Ext: no LE peripheral edema or erythema Results & Data Results & Data Vital Signs (Past 12 Hours) Vital Signs Temp Pulse Resp BP Pulse Ox O2 Del Method 12/13/23 07:09 37 C 62 93/55 L 92 Room Air 12/12/23 21:31 36.7 C 85 18 110/69 97 Room Air
[2023-12-13] MEDS: HYDROmorphone INJ 1 MG/ML SYRINGE IV STA (12:47)
--- NOTE | 2023-12-13 17:17 | Hospitalist Progress Note ---
Date of Service December 12, 2023 Clarificationdate of service is 12/11. I apologize for any confusion. Assessment & Plan (1) Sickle-cell disease with pain: (2) Leukocytosis: (3) Asthma: (4) Hidradenitis: Plan #Sickle cell pain crisis -CXR on admission unconcerning for acute chest -Pain still not adequately controlledescalated Dilaudid to 1.5 mg every 2 as needed. Patient frequently expresses a desire to go home, but whenever we discuss the adequacy of p.o. pain control she does not feel that she would have decent pain control at homeI agree. Continue inpatient care and IV narcotics #Leukocytosis -WBC down from 15.42 on admission -Resolved at time of discharge, was likely due to recent viral URI #Asthma -Continued Symbicort, albuterol nebulizer, and Zyrtec -No exacerbation during stay #Hidradenitis -Left axillary hidradenitis -Improving with Keflex, will discharge on 10 day total course #Depression -Continued Sertraline 25mg qd Admission and Anticipated Discharge Date Admission Date: December 09, 2023 Subjective Pain still fairly badrequiring IV DilaudidNotes 1 mg does not seem to be helping quite enough. Pain largely in her lower back and a bit diffuse. Still wants to go home on initial discussion, but after we discussed the severity of her pain, she decided she would likely not have adequate pain control with p.o. pain meds. Review of Systems Review of Systems: In general she is awake and alert fatigued. Breathing unlabored no accessory muscle use good effort. Skin shows no rashes no pallor or icterus. Neuro without focal deficits. Results & Data Results & Data Vital Signs (Past 12 Hours) Vital Signs Temp Pulse Resp BP Pulse Ox O2 Del Method 12/13/23 15:32 98.6 F 77 16 96/61 L 99 Room Air 12/13/23 09:00 62 114/73 12/13/23 07:09 98.6 F 62 93/55 L 92 Room Air PG Care Time/CCT Total # of Minutes Spent Total Time Spent with Patient: Total time spent is greater than 50% in coordination of care (as documented) at patient's floor/unit and/or counseling patient: Coding Level of Care Code 88938 SUB INP/OBS CARE 3/50MIN Diagnoses Sickle-cell disease with pain D57.00 Leukocytosis D72.829 Asthma J45.909 Hidradenitis L73.2
--- NOTE | 2023-12-13 17:19 | Billing Data ---
Date of Service December 13, 2023 Coding Level of Care Code 31919 SUB INP/OBS CARE
--- NOTE | 2023-12-13 17:20 | Hospitalist Progress Note ---
Date of Service December 11 2023 clarification - date of service 12/11/23 Assessment & Plan (1) Sickle-cell disease with pain: (2) Asthma: (3) Hidradenitis: Plan #Sickle cell pain crisis -Initially discussed wanting to go home today. After we discussed what it is requiring for pain control, she recognizes that p.o. pain meds would likely not be adequate at this time. Continue IV pain medicine, supportive care, time #Leukocytosis -WBC down from 15.42 on admission -Resolved at time of discharge, was likely due to recent viral URI #Asthma -Continued Symbicort, albuterol nebulizer, and Zyrtec -No exacerbation during stay #Hidradenitis -Left axillary hidradenitis -Improving with Keflex, will discharge on 10 day total course #Depression -Continued Sertraline 25mg qd Admission and Anticipated Discharge Date Admission Date: December 09, 2023 Subjective pain still fairly severe Review of Systems Review of Systems: All systems reviewed & are unremarkable except as noted in HPI & below Physical Exam Physical Exam: General she is awake and alert but appears to be uncomfortable and fatigued. Breathing unlabored no accessory muscle use good effort. Skin shows no rashes no pallor or icterus. Neuro without focal deficits. Results & Data Results & Data Vital Signs (Past 12 Hours) Vital Signs Temp Pulse Resp BP Pulse Ox O2 Del Method 12/13/23 15:32 98.6 F 77 16 96/61 L 99 Room Air 12/13/23 09:00 62 114/73 12/13/23 07:09 98.6 F 62 93/55 L 92 Room Air PG Care Time/CCT Total # of Minutes Spent Total Time Spent with Patient: Total time spent is greater than 50% in coordination of care (as documented) at patient's floor/unit and/or counseling patient: Coding Level of Care Code 16791 SUB INP/OBS CARE 3/50MIN Diagnoses Sickle-cell disease with pain D57.00 Asthma J45.909 Hidradenitis L73.2
--- NOTE | 2023-12-13 17:21 | Billing Data ---
Date of Service December 11, 2023 Coding Level of Care Code 46913 SUB INP/OBS CARE
== END 2023-12-13 20:27 | disposition home or self-care (01) | DRG 812 ==
LOC: ED 06:13 → SUATTDRO 11:19 → EDINP 11:19 → 3N 13:32
DX: Z79.620 Long term (current) use of immunosuppressive biologic; J45.909 Unspecified asthma, uncomplicated; D72.829 Elevated white blood cell count, unspecified; Z79.891 Long term (current) use of opiate analgesic; Z79.899 Other long term (current) drug therapy; D57.00 Hb-SS disease with crisis, unspecified; F32.A Depression, unspecified; J06.9 Acute upper respiratory infection, unspecified; L73.2 Hidradenitis suppurativa

== ENCOUNTER 2024-03-02 17:25 | Inpatient (IN) ==
[2024-03-02] MEDS: SODIUM CHLORIDE 0.9% 1,000 ML IV ONE ×2 (18:47→20:37)
[2024-03-02] MEDS: HYDROmorphone INJ 1 MG/ML SYRINGE IV STA (18:47)
[2024-03-02] MEDS: ACETAMINOPHEN 1,000 MG/100 ML VIAL IV STA (18:47)
[2024-03-02] MEDS: ONDANSETRON INJ 2 MG/ML 2 ML VIAL IV STA (18:47)
[2024-03-02 18:55] LABS: Basophils # (auto) 0.12 K/uL (0.00-0.20); Basophils % (auto) 1.2 %; Eosinophils # (auto) 0.33 K/uL (0.00-0.50); Eosinophils % (auto) 3.4 %; Hematocrit (blood only) 28.8 % (37.0-47.0); Hemoglobin 10.7 g/dl (12.0-16.0); Immature Granulocytes # (auto) 0.02 K/uL (0.01-0.20); Immature Granulocytes % (auto) 0.2 %; Lymphocytes % (auto) 24.6 %; Mean Corpuscular Hemoglobin 30.7 pg (25.0-34.0); Mean Corpuscular Hgb Conc 37.2 g/dL (32.0-36.0); Mean Corpuscular Volume 82.5 fL (80.0-100.0); Mean Platelet Volume 9.9 fL (9.4-12.4); Monocytes # (auto) 1.38 K/uL (0.11-0.59); Monocytes % (auto) 14.1 %; Neutrophils # (auto) 5.52 K/uL (1.40-6.50); Neutrophils % (auto) 56.5 %; Nucleated RBC # (auto) 0.06 K/uL (0.00-0.12); Nucleated RBC % (auto) 0.6 %; Platelet Count 302 K/uL (130-400); RDW Standard Deviation 44.7 fL (36.4-46.3); Red Blood Count 3.49 M/uL (4.20-5.40); Reticulocyte % 6.01 % (0.50-2.00); White Blood Count 9.77 K/ul (4.8-10.8)
--- NOTE | 2024-03-02 19:09 | Emergency Department Note ---
Impression & Plan Sickle cell pain crisis, Anemia ED Provider Note NAME: SYMONE SAN AGE: 23 SEX: F : 2000 ARRIVES VIA: Walk-In INFORMANT: [Patient] ED PROVIDER(S): [Lakhwinder Dougherty MD] CHIEF COMPLAINT: Pain HISTORY OF PRESENT ILLNESS: The patient is a 23-year-old female presents with 2 days of what she describes as sickle cell pain. She has pain in her low back, her hips and knees. The pain was intermittent yesterday but is constant today. She has tried her Dilaudid at home and it has helped some. There has been no fever, no chest pain or shortness of breath. No urinary complaints. This is a typical sickle cell painful crisis for her. The patient does wonder if she may just be dehydrated. PMHx/PSHx/Social Hx: See Below PHYSICAL EXAM: GENERAL: Patient is in no acute distress. HEENT: No acute trauma, normocephalic atraumatic, mucous membranes moist, no nasal congestion. NECK: No stridor, no adenopathy, no meningismus, trachea is midline. LUNGS: Clear to auscultation bilaterally, no wheeze, no rhonchi, breath sounds equal. HEART: 2/6 systolic murmur, regular rate and rhythm. ABDOMEN: Soft, nontender, no peritonitis. EXTREMITIES: No cyanosis, full range of motion of all the joints without pain or difficulty. NEUROLOGIC: Oriented x 3, no acute motor or sensory deficits, no focal weakness. SKIN: No jaundice, no diaphoresis. DIFFERENTIAL DIAGNOSIS: Sickle cell crisis, infection, anemia, aplastic crisis, dehydration, electrolyte imbalance, among others. EMERGENCY DEPARTMENT PROCEDURES: MEDICAL DECISION MAKING: There is no leukocytosis. The patient is anemic however, this is baseline when looking back at previous testing. The platelet count was normal. The patient's reticulocyte count was elevated and within her typical parameters. There was no electrolyte abnormality or concerning liver enzyme elevation. On exam, the patient was not febrile or toxic. She was not short of breath, there was no chest pain. The patient received IV Dilaudid, additional doses were given as needed for pain control. She was given IV Tylenol, she received 2 L of IV saline. The patient is still having quite a bit of discomfort. She is not able to go home in this much pain. She will be hospitalized as she has been in the past for a painful sickle cell crisis. I spoke with the patient and case management, the on-call hospitalist was consulted. Prior/Outside records/notes reviewed: Discharge note from 12/11/2023 describing her presentation for a painful sickle cell crisis, her care and outpatient plan. Imaging/x-ray results per my interpretation: Chronic Medical/Social conditions affecting care: History of sickle cell disease. Care/Management discussed with: branch services manager, the on-call hospitalist Level of care consideration(s): After review of the information above and other included data: --I believe the patient requires escalation of care to admission DISPOSITION: Admission Past Med/Surg History Problem List (Updated 03/02/24 @ 21:48 by Lakhwinder Dougherty MD) Anemia (Acute) Sickle cell pain crisis (Acute) Upper respiratory infection (Acute) Hidradenitis Constipation Sore throat (Acute) Generalized weakness Dehydration Sickle-cell disease with pain (Acute) Leukocytosis (Acute) Sickle cell crisis (Acute) Asthma (Acute) COVID-19 virus infection (Acute) Hyperbilirubinemia Anxiety Seasonal allergies Splenomegaly Medical History Sickle cell disease Sickle cell crisis Back pain Parainfluenza Sickle cell crisis Sickle cell anemia with crisis COVID-19 Influenza A Leukocytosis Pneumonia Sepsis Abnormal LFTs Transaminitis Sickle cell crisis Vaginal ulceration Sepsis Pyelonephritis Asthma Sickle cell anemia Surgical History No pertinent past surgical history Family History Brother Sickle cell anemia Social History Smoking Status: Never smoker Second Hand Exposure: No; Do You Dip or Chew Tobacco: No; Hx Alcohol Use: No Hx Substance Use: No Preferred Language: Yakut Communication Ability: Effective Manager Reimbursement Required: No Beliefs That Will Affect Care: None marital status: Single Current Living Situation: Alone Current Living Situation Comment: roommates - school Feels Safe at Home: Yes Assistive Devices: Glasses Allergies Allergies Allergy/AdvReac Type Severity Reaction Status Date / Time peanut Allergy Intermediate ITCHY HIVES Verified 07/21/23 12:44 Home Meds Home Medications Medication Instructions Recorded Confirmed cetirizine 10 mg tablet (Zyrtec) 10 mg PO HS PRN Congestion 04/18/20 03/02/24 acetaminophen 325 mg tablet 650 mg PO DIRECTED PRN Pain 12/13/21 03/02/24 crizanlizumab-tmca 10 mg/mL See Rx Instructions .Route .COMPLEX 06/30/22 03/02/24 intravenous solution (Adakveo) budesonide-formoterol HFA 80 2 puff inhalation BID PRN 12/14/22 03/02/24 mcg-4.5 mcg/actuation aerosol Shortness Of Breath Or Wheezing inhaler (Symbicort) folic acid 1 mg tablet 5 mg PO DAILY 05/25/23 03/02/24 sertraline 25 mg PO DAILY 07/21/23 03/02/24 ibuprofen 800 mg tablet 800 mg PO TID 09/16/23 03/02/24 ergocalciferol (vitamin D2) 1,250 50,000 unit PO DIRECTED 03/02/24 03/02/24 mcg (50,000 unit) capsule Previous Rx's Medication Instructions Recorded hydromorphone 2 mg tablet 2 mg PO Q4H PRN pain #20 tabs 12/10/23 Results & Data (ED) Vital Signs Vital Signs - 24 hr 03/02/24 17:28 03/02/24 19:30 03/02/24 21:30 Temperature 36.4 C L Temperature Source Oral Pulse Rate 98 H Pulse Rate [Finger] 78 89 Respiratory Rate 20 18 18 Respiratory Effort / Characteristics Non-Labored Respiratory Depth Normal Blood Pressure 124/74 Blood Pressure [Right Arm] 117/79 97/54 L Blood Pressure Mean 90 Blood Pressure Mean [Right Arm] 91 68 Pulse Oximetry 99 100 92 Oxygen Delivery Method Room Air Room Air Room Air Sepsis Recent Fever Within 48 Hours No Sepsis New/Unexplained Change in Mental Status No Sepsis Action Taken by Nursing No Action Required Home Medications Current Medication List: was personally reviewed by me Laboratory Data Attestation: I reviewed the patient's lab results. 03/02/24 18:41 03/02/24 18:41 Lab Results 03/02/24 Range/Units 18:41 WBC 9.77 (4.8-10.8) K/ul RBC 3.49 L (4.20-5.40) M/uL Hgb 10.7 L (12.0-16.0) g/dl Hct 28.8 L (37.0-47.0) % MCV 82.5 (80.0-100.0) fL MCH 30.7 (25.0-34.0) pg MCHC 37.2 H (32.0-36.0) g/dL RDW Std Deviation 44.7 (36.4-46.3) fL RDW Coeff of Kashif 15.0 H (11.5-14.5) % Plt Count 302 (130-400) K/uL MPV 9.9 (9.4-12.4) fL Immature Gran % (Auto) 0.2 % Neut % (Auto) 56.5 % Lymph % (Auto) 24.6 % Newton % (Auto) 14.1 % Eos % (Auto) 3.4 % Baso % (Auto) 1.2 % Reticulocyte % (Auto) 6.01 H (0.50-2.00) % Neut # (Auto) 5.52 (1.40-6.50) K/uL Lymph # (Auto) 2.40 (1.20-3.40) K/uL Newton # (Auto) 1.38 H (0.11-0.59) K/uL Eos # (Auto) 0.33 (0.00-0.50) K/uL Baso # (Auto) 0.12 (0.00-0.20) K/uL Reticulocyte # 0.210 H (0.020-0.100) 10^6/uL Immature Gran # (Auto) 0.02 (0.01-0.20) K/uL Absolute Nucleated RBC 0.06 (0.00-0.12) K/uL Nucleated RBC % (auto) 0.6 % Sodium 139 (136-145) mmol/L Potassium 3.8 (3.5-5.1) mmol/L Chloride 110 H (98-107) mmol/L Carbon Dioxide 23 (21-32) mmol/L Anion Gap 6 (3-11) BUN 9 (6-23) mg/dl Creatinine 0.76 (0.6-1.2) mg/dl Est Cr Clr Drug Dosing 100.6 ml/min Est GFR ( Amer) 129.1 ml/min Est GFR (Non-Af Amer) 111.3 ml/min BUN/Creatinine Ratio 11.8 (10-20) Glucose 78 (70-99(Fasting)) mg/dl Calcium 9.3 (8.6-10.3) mg/dl Magnesium 1.9 (1.7-2.4) mg/dl Total Bilirubin 1.5 H (0.2-1.0) mg/dl AST 21 (13-39) U/L ALT 13 (7-52) U/L Alkaline Phosphatase 45 (34-104) U/L Total Protein 7.3 (6.0-8.3) gm/dl Albumin 4.3 (3.4-5.0) gm/dl Globulin 3.0 (2.5-4.0) gm/dl Albumin/Globulin Ratio 1.4 (0.9-2) Administered Medications Hydromorphone HCl (Hydromorphone Inj 1 Mg/Ml Syringe) 1 mg IV Q30M PRN PRN Reason: Pain Stop: 03/16/24 18:06 Last Admin: 03/02/24 21:08 Dose: 1 mg Documented By: Admin: 03/02/24 20:37 Dose: 1 mg Documented By: Admin: 03/02/24 19:33 Dose: 1 mg Documented By: SHER Discontinued Medications Hydromorphone HCl (Hydromorphone Inj 1 Mg/Ml Syringe) 1 mg IV NOW STA Stop: 03/02/24 18:08 Last Admin: 03/02/24 18:47 Dose: 1 mg Documented By: SHER Sodium Chloride (Nss) 1,000 mls @ 999 mls/hr IV .Q1H1M ONE Stop: 03/02/24 19:07 Last Infusion: 03/02/24 20:03 Dose: Infused Documented By: Admin: 03/02/24 18:47 Dose: 999 mls/hr Documented By: SHER Acetaminophen (Ofirmev) 1,000 mg in 100 mls @ 400 mls/hr IV NOW STA Stop: 03/02/24 18:21 Last Infusion: 03/02/24 19:09 Dose: Infused Documented By: Admin: 03/02/24 18:47 Dose: 400 mls/hr Documented By: SHER Sodium Chloride (Nss) 1,000 mls @ 999 mls/hr IV .Q1H1M ONE Stop: 03/02/24 21:12 Last Admin: 03/02/24 20:37 Dose: 999 mls/hr Documented By: SHER Ondansetron HCl (Ondansetron Inj 2 Mg/Ml 2 Ml Vial) 4 mg IV NOW STA Stop: 03/02/24 18:08 Last Admin: 03/02/24 18:47 Dose: 4 mg Documented By: SHER Discharge Plan Visit Data Chief Complaint: Pain (Generalized) Stated Complaint: SICKLECELL FLAIR, JOINT/BACK PAIN ED Provider: Lakhwinder Dougherty Discharge Problem: Sickle cell pain crisis, Anemia Patient Disposition: Admitted As Inpatient Condition: Good Forms Stand Alone Forms: [employer] Prescriptions Prescriptions: No Action cetirizine [Zyrtec] 10 mg tablet 10 mg PO HS PRN (Reason: Congestion) acetaminophen 325 mg tablet 650 mg PO DIRECTED PRN (Reason: Pain) budesonide-formoterol [Symbicort] 80-4.5 mcg/actuation Hfa Aerosol Inhaler 2 puff INHALATION BID PRN (Reason: Shortness Of Breath Or Wheezing) Adakveo 10 mg/mL Solution See Rx Instructions .ROUTE .COMPLEX Rx Instructions: infusion monthly per pt folic acid 1 mg tablet 5 mg PO DAILY sertraline tablet 25 mg PO DAILY ibuprofen 800 mg tablet 800 mg PO TID ergocalciferol (vitamin D2) 1,250 mcg (50,000 unit) capsule 50,000 unit PO DIRECTED hydromorphone 2 mg tablet 2 mg PO Q4H PRN (Reason: pain) Qty: 20 0RF Referrals Referrals: [facility] [Primary Care Provider] - Discharge Problem: Anemia Qualifiers: Anemia type: unspecified type Qualified Code(s): D64.9 - Anemia, unspecified
[2024-03-02 19:13] LABS: Albumin Globulin Ratio 1.4 (0.9-2); Albumin Level 4.3 gm/dl (3.4-5.0); BUN Creatinine Ratio 11.8 (10-20); Bilirubin,Total 1.5 mg/dl (0.2-1.0); Calcium 9.3 mg/dl (8.6-10.3); Creatinine Clr Calc Pharmacy 100.6 ml/min; Est GFR (African American) 129.1 ml/min; Est GFR (Non-African American) 111.3 ml/min; Magnesium 1.9 mg/dl (1.7-2.4); Potassium 3.8 mmol/L (3.5-5.1); Total Protein 7.3 gm/dl (6.0-8.3)
[2024-03-02] MEDS: HYDROmorphone INJ 1 MG/ML SYRINGE IV PRN ×2 (19:33→22:32)
--- NOTE | 2024-03-02 20:46 | History & Physical Report ---
"Date of Service March 02, 2024 Assessment & Plan (1) Sickle-cell disease with pain: (2) Dehydration: (3) Anemia: (4) Asthma: (5) Anxiety: (6) Hyperbilirubinemia: Sis Kimbrough is a 23F w/ PMH of sickle cell disease, asthma, anxiety, splenomegaly, and seasonal allergies who presents due to generalized pain. Acute Pain | Sickle Cell Disease - Patient with multiple, frequent admissions for sickle cell disease and pain flares Though notably, admission frequency has been diminishing since starting biologic infusions, Adakveo Many episodes are provoked by illness/dehydration, with illness often p receding pain Current episode likely provoked by dehydration - Hgb 10.7/ Hct 28, Reticulocyte count 0.21 H, CMP only remarkable for T Bili of 1.5 H - Hemodynamically stable on room air, afebrile - No acute chest pain or dyspnea on presentation - Pain not yet controlled in ED ED Regimen: Dilaudid 1 mg Q30 mins Pain Regimen: - Tylenol and Ibuprofen scheduled - Benadryl 25 mg IV now - Continue Dilaudid 2 mg PO Q4h PRN (home regimen) - Ongoing Dilaudid 1 mg Q 1h for breakthrough pain, preference for home PO regimen - Start mIVF on admission, ordered x 2 bags - Continue home Folic acid for SCD, ongoing f/u w/ [facility] in [place] for Adakcheno as outpatinet Chronic Conditions: Asthma -Continue Symbicort, Albuterol Nebulizer, and Zyrtec Depression - Continue Sertraline 25mg qd Code: Full Diet: Regular IVF: mIVF x 2 bags Dispo: Med/tele History of Present Illness Chief Complaint: Pain Primary Care Provider: [facility] Kaylan is a 23F w/ PMH of sickle cell disease, asthma, anxiety, splenomegaly, and seasonal allergies who presents due to generalized pain. ED: Hydromorphone 2g, Tylenol, 1L NSS, and Zofran HPI: - 2 days ago started having increasing amounts of pain in her back and knees - Notes that she ran out of water at home, was unable to get to store to get a case - Says the heat increase has exacerbated her symptoms and dehydration is a trigger for her pain - Notes she has continued to eat regularly - No redness or swelling in her knees or fingers - No chest pain, abdominal pain, or dyspnea - Urinating regularly, notes her urine is darker than normal - Moving bowels well, w/o diarrhea or constipation - No headaches, lightheadedness, or vision changes - States she has been using Dilaudid 2 mg q 4h at home without benefit so she presented to ED - In addition, she was taking Ibuprofen at home - She continues to receive her biologic infusions at home in [place] and will transition all 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 - Notes that currently the medication is only working for the first few moments, followed by symptom return - Pain crises are typically initiated by illness, but notes she has experienced episodes from dehydration Allergies Allergy/AdvReac Type Severity Reaction Status Date / Time peanut Allergy Intermediate ITCHY HIVES Verified 07/21/23 12:44 Home Medications Medication Instructions Recorded Confirmed Type cetirizine 10 mg tablet (Zyrtec) 10 mg PO HS PRN Congestion 04/18/20 03/02/24 History acetaminophen 325 mg tablet 650 mg PO DIRECTED PRN Pain 12/13/21 03/02/24 History crizanlizumab-tmca 10 mg/mL See Rx Instructions .Route .COMPLEX 06/30/22 03/02/24 History intravenous solution (Adakveo) budesonide-formoterol HFA 80 2 puff inhalation BID PRN 12/14/22 03/02/24 History mcg-4.5 mcg/actuation aerosol Shortness Of Breath Or Wheezing inhaler (Symbicort) folic acid 1 mg tablet 5 mg PO DAILY 05/25/23 03/02/24 History sertraline 25 mg PO DAILY 07/21/23 03/02/24 History ibuprofen 800 mg tablet 800 mg PO TID 09/16/23 03/02/24 History hydromorphone 2 mg tablet 2 mg PO Q4H PRN pain #20 tabs 12/10/23 03/02/24 Rx ergocalciferol (vitamin D2) 1,250 50,000 unit PO DIRECTED 03/02/24 03/02/24 History mcg (50,000 unit) capsule Past Med/Surg History Problem List (Updated 03/02/24 @ 21:48 by Lakhwinder Dougherty MD) Anemia (Acute) Sickle cell pain crisis (Acute) Upper respiratory infection (Acute) Hidradenitis Constipation Sore throat (Acute) Generalized weakness Dehydration Sickle-cell disease with pain (Acute) Leukocytosis (Acute) Sickle cell crisis (Acute) Asthma (Acute) COVID-19 virus infection (Acute) Hyperbilirubinemia Anxiety Seasonal allergies Splenomegaly Medical History Sickle cell disease Sickle cell crisis Back pain Parainfluenza Sickle cell crisis Sickle cell anemia with crisis COVID-19 Influenza A Leukocytosis Pneumonia Sepsis Abnormal LFTs Transaminitis Sickle cell crisis Vaginal ulceration Sepsis Pyelonephritis Asthma Sickle cell anemia Surgical History No pertinent past surgical history Family History Brother Sickle cell anemia Social History Smoking Status: Never smoker Second Hand Exposure: No; Do You Dip or Chew Tobacco: No; Hx Alcohol Use: Yes Alcohol type: wine and hard liquor Alcohol Intake Frequency: Monthly or Less Alcohol Intake Frequency Comment: 1 drink Hx Substance Use: No Preferred Language: Zambian Communication Ability: Effective Toe Puller Required: No Beliefs That Will Affect Care: None marital status: Single Current Living Situation: Alone Current Living Situation Comment: college apt. Feels Safe at Home: Yes Assistive Devices: Glasses Assistive Devices Comment: at bedside Physical Exam Physical Exam: Gen: acutely uncomfortable, frequent repositioning, alert, pleasant HEENT: Supple, no LAD, no thyromegaly, no JVD Resp:Non-labored, no wheezing/rhonchi/rales, CTAB CV:RRR, normal S1/S2, no M/R/G Abd: Soft, non-distended, no TTP, normoactive bowels, no masses Extr: 2+ dp bilaterally, no edema Skin: No rashes lesions or erythema Results & Data Results & Data Vital Signs (Past 12 Hours) Vital Signs Temp Pulse Pulse Resp BP BP Pulse Ox 03/02/24 19:30 78 18 117/79 100 03/02/24 17:28 36.4 C L 98 H 20 124/74 99 O2 Del Method 03/02/24 19:30 Room Air 03/02/24 17:28 Room Air Supervising Physician Co-Signing Physician Notes Attending addendum: I have physically seen this patient, have supervised the medical residents activities, and agree with the H&P unless as otherwise noted. Assessment and Plan: Sickle cell crisis- Pain consistent with previous episodes of sickle cell crisis, although decreased in frequency since starting Adakveo Current episode likely secondary to dehydration Status post normal saline boluses x 2 Also received from the ED: Tylenol 1 g IV, Zofran 4 mg IV, and Dilaudid 1 mg IV every 30 minutes as needed Admit with the following pain regimen: Scheduled Tylenol 650 mg p.o. every 6 hours and ibuprofen 800 mg p.o. 3 times daily Benadryl 25 mg IV now Dilaudid 2 mg p.o. every 4 hours as needed Dilaudid 1 mg IV every hour as needed breakthrough pain Continue folic acid 5 mg daily Asthma- Continue Symbicort, albuterol nebulizer and Zyrtec Depression- Continue sertraline 25 mg daily Resident Activity Tracking Resident Involvement: Resident Care Provided Care Provided: Adult Hospital Medicine (3) Anemia Anemia type: unspecified type Qualified Code(s): D64.9 - Anemia, unspecified"
[2024-03-02] MEDS: LACTATED RINGER'S 1,000 ML IV SCH (22:31)
[2024-03-02] MEDS: diphenhydrAMINE 50 MG/ML VIAL IV STA (22:32)
[2024-03-03] MEDS ORDERED: MELATONIN 3 MG TAB PO PRN (01:06)
[2024-03-03] MEDS: HYDROmorphone HCL 2 MG TAB PO PRN (01:21)
[2024-03-03] MEDS ORDERED: ALBUTEROL HFA 8 GM INHALER INH PRN (01:34)
[2024-03-03] MEDS: ACETAMINOPHEN 325 MG TAB PO SCH (01:48)
--- NOTE | 2024-03-03 02:54 | Billing Data ---
Date of Service March 03, 2024 Coding Level of Care Code 71221 INT INP/OBS CARE
[2024-03-03] MEDS ORDERED: NALOXONE HCL 0.4 MG/1 ML VIAL/CARP IV PRN ×2 (03:58→09:22)
[2024-03-03 07:52] LABS: Basophils # (auto) 0.12 K/uL (0.00-0.20); Eosinophils # (auto) 0.39 K/uL (0.00-0.50); Eosinophils % (auto) 3.4 %; Hematocrit (blood only) 27.3 % (37.0-47.0); Hemoglobin 9.8 g/dl (12.0-16.0); Immature Granulocytes # (auto) 0.04 K/uL (0.01-0.20); Immature Granulocytes % (auto) 0.3 %; Lymphocytes # (auto) 3.66 K/uL (1.20-3.40); Lymphocytes % (auto) 31.7 %; Mean Corpuscular Hemoglobin 29.9 pg (25.0-34.0); Mean Corpuscular Hgb Conc 35.9 g/dL (32.0-36.0); Mean Corpuscular Volume 83.2 fL (80.0-100.0); Mean Platelet Volume 9.9 fL (9.4-12.4); Monocytes # (auto) 1.66 K/uL (0.11-0.59); Monocytes % (auto) 14.4 %; Neutrophils # (auto) 5.67 K/uL (1.40-6.50); Neutrophils % (auto) 49.2 %; Nucleated RBC # (auto) 0.07 K/uL (0.00-0.12); Nucleated RBC % (auto) 0.6 %; Platelet Count 264 K/uL (130-400); RDW Coefficient of Variation 14.8 % (11.5-14.5); RDW Standard Deviation 44.6 fL (36.4-46.3); Red Blood Count 3.28 M/uL (4.20-5.40); White Blood Count 11.54 K/ul (4.8-10.8)
[2024-03-03] MEDS: diphenhydrAMINE 50 MG/ML VIAL IV STA (08:06)
[2024-03-03] MEDS: SODIUM CHLORIDE 0.45 % 1,000 ML IV SCH (08:12)
[2024-03-03 08:17] LABS: Bilirubin,Total 2.3 mg/dl (0.2-1.0)
[2024-03-03 08:22] LABS: Albumin Globulin Ratio 1.4 (0.9-2); BUN Creatinine Ratio 11.4 (10-20); Est GFR (African American) 123.2 ml/min; Est GFR (Non-African American) 106.3 ml/min; Globulin 2.8 gm/dl (2.5-4.0); Total Protein 6.8 gm/dl (6.0-8.3)
--- NOTE | 2024-03-03 09:07 | Medical Student Progress Note ---
Date of Service March 03, 2024 Assessment & Plan (1) Sickle-cell disease with pain: Plan: Patient is a 23y/o female with a past medical history of sickle cell disease, asthma, and anxiety who presented for generalized pain suspicious for sickle cell pain crisis. (1) Generalized pain: Status: acute on chronic, improving. - Continue Ibuprofen 800mg PO TID - Continue Acetaminophen 650mg PO q6hr - Continue Benadryl 25mg IV - Continue 0.45% NSS - Begin MOLD SHIFTER: Dilaudid 0.25mg q15min prn - Stop Dilaudid 2mg IV q4hr - Stop Dilaudid 1mg IV prn - Continue folic acid 5mg PO daily (2) Skin Lesions: Lesions over R radius and L dorsum of hand appear to be consistent with hives. These improved while at the bed side over the course of 10 minutes after patient received a dose of Benadryl. Status: acute, controlled. - Continue monitoring. - Continue Benadryl 25mg IV (3) Asthma: Status: chronic, controlled. - Continue Symbicort - Continue Albuterol - Continue Zyrtec (4) Depression: Status: chronic, controlled. - Continue Sertraline 25g daily Plan Code: Full Diet: Regular IVF: mIVF x 2 bags Dispo: Med/tele Admission and Anticipated Discharge Date Admission Date: March 02, 2024 Supervising Attestation I personally examined the patient and verified all knox points of history and exam, discussed case, and agree with decision making with Dr Quan Hayes and Shanel Abrams MS4 Pain under better control now that she is getting escalated doses of Dilaudid. No other new complaints. Vitals noted, in general she is awake and alert pleasant no distress. HEENT normocephalic atraumatic mucous membranes moist. Breathing unlabored no accessory muscle use good effort. Skin without rashes pallor or icterus. Neuro without focal deficits. Sickle cell with acute pain crisisappears to have a mild degree of hemolysis. Fortunately no indications for transfusion at this time. Continue IV fluids, doing better on escalated Dilaudidcontinue MOLD SHIFTER. Otherwise as above. Subjective Patient is a 23y/o female with a past medical history of sickle cell disease, asthma, and anxiety who presented to the ED for generalized pain that started worsening 2 days ago. Patient states she had not consumed fluids since Thursday and had been out in the heat. Patient states she gets sickle cell pain crisis once a month. She reports her last flare was in November. Patient follows with hematology and gets monthly Adakveo infusions. Patient states she was in a lot of pain overnight. Patient had difficulty sleeping. Patient states pain is currently in her knees, back, and fingers. She states pain is better than when she first presented, no rates 7/10. Patient also reports new onset of "bumps" over her R wrist and L hand that are pruritic but not painful. These lesions improved while I was at the bed side within 10 minutes of receiving benadryl. Patient denies headache, CP, palpitations, SOB, abdominal pain, n/v, constipation, diarrhea, lightheadedness, dizziness. Review of Systems Review of Systems: As per HPI. Physical Exam Physical Exam: Gen: sitting upright in bed, alert and oriented, in no acute distress HEENT: Supple, no LAD, no thyromegaly, no JVD Resp:Non-labored, no wheezing/rhonchi/rales, CTAB CV:RRR, normal S1/S2, no M/R/G Abd: Soft, non-distended, no TTP, normoactive bowels, no masses Extr: 2+ dp bilaterally, no edema Skin: two 0.5cm wheels over R distal radius. 2cm linear wheel over dorsal surface of L hand. Results & Data Vital Signs (Past 12 Hours) Vital Signs Temp Pulse Pulse Resp BP Pulse Ox O2 Del Method 03/03/24 07:47 36.7 C 86 20 106/60 100 Room Air 03/03/24 03:06 36.4 C L 87 18 104/65 96 Room Air 03/03/24 01:06 36.7 C 98 H 18 102/65 92 Room Air 03/03/24 00:16 Room Air 03/02/24 23:50 78 03/02/24 23:49 74 18 117/88 98 Room Air 03/02/24 23:00 111/71 99 Room Air 03/02/24 21:30 89 18 97/54 L 92 Room Air Resident Activity Tracking Resident Involvement: Resident Care Provided Care Provided: Adult Hospital Medicine Resident Supervision Co-Signing Physician Notes Patient seen and examined with Elia CHOWDHURY. Agree with documented findings as noted with any exception noted here Seen this morning. 7/10 pain on legs and lower back. Denied any chest pain, SOB or palpitations Sickle cells crisis: Crisis exacerbated secondary to dehydration. IV 125 ml/hr. MOLD SHIFTER started today: 0.25 mg q15hr, , no continuous MOLD SHIFTER for now. Labs remarkable for hgb of 9.8 and total bili at 2.3. Will continue hydration and CBC/ CMP AM
[2024-03-03] MEDS: HYDROmorphone INJ 2 MG/ML SYR/VIAL IV STA (10:09)
[2024-03-03] MEDS: IBUPROFEN 800 MG TAB PO SCH (10:18)
[2024-03-03] MEDS: FOLIC ACID 1 MG TAB PO SCH (10:18)
[2024-03-03] MEDS: SERTRALINE HCL 50 MG TABLET PO SCH (10:19)
[2024-03-03] MEDS: SODIUM CHLORIDE 0.9% 1,000 ML IV SCH (12:51)
[2024-03-03] MEDS: HYDROmorphone PCA 30 MG/30 ML IV PRN (14:42)
--- NOTE | 2024-03-03 18:18 | Billing Data ---
Date of Service March 03, 2024 Coding Level of Care Code 17540 SUB INP/OBS CARE MIN
[2024-03-04] MEDS: ONDANSETRON INJ 2 MG/ML 2 ML VIAL IV PRN (16:30)
--- NOTE | 2024-03-04 18:44 | Billing Data ---
Date of Service March 04, 2024 Coding Level of Care Code 30808 SUB INP/OBS CARE MIN
[2024-03-04 19:35] LABS: Anion Gap 5 (3-11); BUN Creatinine Ratio 11.9 (10-20); Blood Urea Nitrogen 7 mg/dl (6-23); Carbon Dioxide 25 mmol/L (21-32); Chloride 109 mmol/L (98-107); Creatinine Clr Calc Pharmacy 129.9 ml/min; Est GFR (African American) > 150.0 ml/min; Est GFR (Non-African American) 130.1 ml/min; Glucose 104 mg/dl (70-99(Fasting)); Potassium 4.1 mmol/L (3.5-5.1); Sodium 139 mmol/L (136-145)
[2024-03-04 23:42] LABS: Basophils % (auto) 0.7 %; Eosinophils # (auto) 0.61 K/uL (0.00-0.50); Eosinophils % (auto) 4.3 %; Hematocrit (blood only) 24.9 % (37.0-47.0); Hemoglobin 9.1 g/dl (12.0-16.0); Immature Granulocytes # (auto) 0.04 K/uL (0.01-0.20); Immature Granulocytes % (auto) 0.3 %; Lymphocytes # (auto) 2.46 K/uL (1.20-3.40); Lymphocytes % (auto) 17.2 %; Mean Corpuscular Hemoglobin 30.5 pg (25.0-34.0); Mean Corpuscular Hgb Conc 36.5 g/dL (32.0-36.0); Mean Corpuscular Volume 83.6 fL (80.0-100.0); Monocytes # (auto) 1.39 K/uL (0.11-0.59); Monocytes % (auto) 9.7 %; Neutrophils # (auto) 9.73 K/uL (1.40-6.50); Neutrophils % (auto) 67.8 %; Nucleated RBC # (auto) 0.13 K/uL (0.00-0.12); Nucleated RBC % (auto) 0.9 %; Platelet Count 292 K/uL (130-400); Polychromasia 1+; RDW Standard Deviation 45.1 fL (36.4-46.3); Red Blood Count 2.98 M/uL (4.20-5.40); Stomatocytes 1+; Target Cells 1+; White Blood Count 14.33 K/ul (4.8-10.8)
[2024-03-04] MEDS: ONDANSETRON INJ 2 MG/ML 2 ML VIAL IV SCH (23:50)
[2024-03-05] MEDS: HYDROmorphone INJ 1 MG/ML SYRINGE IV SCH (00:06)
[2024-03-05] MEDS: HYDROmorphone PCA 30 MG/30 ML IV ONE (02:43)
[2024-03-05 06:53] LABS: Basophils # (auto) 0.08 K/uL (0.00-0.20); Basophils % (auto) 0.7 %; Eosinophils % (auto) 7.3 %; Hematocrit (blood only) 22.9 % (37.0-47.0); Hemoglobin 8.2 g/dl (12.0-16.0); Immature Granulocytes # (auto) 0.03 K/uL (0.01-0.20); Immature Granulocytes % (auto) 0.3 %; Lymphocytes # (auto) 2.54 K/uL (1.20-3.40); Lymphocytes % (auto) 23.1 %; Mean Corpuscular Hemoglobin 30.1 pg (25.0-34.0); Mean Corpuscular Hgb Conc 35.8 g/dL (32.0-36.0); Mean Corpuscular Volume 84.2 fL (80.0-100.0); Mean Platelet Volume 10.4 fL (9.4-12.4); Monocytes # (auto) 1.17 K/uL (0.11-0.59); Monocytes % (auto) 10.6 %; Neutrophils # (auto) 6.39 K/uL (1.40-6.50); Nucleated RBC # (auto) 0.14 K/uL (0.00-0.12); Nucleated RBC % (auto) 1.3 %; Platelet Count 169 K/uL (130-400); RDW Coefficient of Variation 14.7 % (11.5-14.5); Red Blood Count 2.72 M/uL (4.20-5.40); White Blood Count 11.01 K/ul (4.8-10.8)
[2024-03-05 07:20] LABS: Alanine Aminotransferase 37 U/L (7-52); Albumin Globulin Ratio 1.6 (0.9-2); Albumin Level 3.6 gm/dl (3.4-5.0); Alkaline Phosphatase 39 U/L (34-104); Anion Gap 5 (3-11); Aspartate Aminotransferase 44 U/L (13-39); BUN Creatinine Ratio 7.7 (10-20); Bilirubin,Total 2.1 mg/dl (0.2-1.0); Blood Urea Nitrogen 4 mg/dl (6-23); Calcium 8.6 mg/dl (8.6-10.3); Carbon Dioxide 24 mmol/L (21-32); Chloride 109 mmol/L (98-107); Creatinine Clr Calc Pharmacy 147.3 ml/min; Est GFR (African American) > 150.0 ml/min; Est GFR (Non-African American) 135.6 ml/min; Globulin 2.3 gm/dl (2.5-4.0); Glucose 95 mg/dl (70-99(Fasting)); Potassium 3.9 mmol/L (3.5-5.1); Sodium 138 mmol/L (136-145); Total Protein 5.9 gm/dl (6.0-8.3)
--- NOTE | 2024-03-05 07:58 | Hospitalist Progress Note ---
Date of Service March 05, 2024 Assessment & Plan (1) Sickle-cell disease with pain: Plan Patient is a 23y/o female with a past medical history of sickle cell disease, asthma, and anxiety who presented for generalized pain suspicious for sickle cell pain crisis. Generalized pain in the setting of sickle cell crisis, acute on chronic - pt notes pain in her back that she presents with is similar to other times she has had sickle cell crisis - will place pt back on dilaudid 2 mg q4h prn regime for breakthrough and increase CLOTH SHRINKING MACHINE OPERATOR HELPER pump as 0.50 mg prn Sickle cell disease with anemia - hemoglobin today 8.2 - continue folic acid - continue to monitor Skin Lesions - Lesions over R radius and L dorsum of hand consistent with hives noted on admission that improved over the course of 10 minutes after patient received a dose of Benadryl, pt did note this again today on R arm after dose of dilaudid given through left access site but refused Benadryl due to sedating effects - will continue to monitor as no rash noted this morning and seems to spontaneously resolve Asthma Status: chronic, controlled. - Continue Symbicort - Continue Albuterol - Continue Zyrtec Depression Status: chronic, controlled. - Continue Sertraline 25g daily Admission and Anticipated Discharge Date Admission Date: March 02, 2024 Supervising Physician Co-Signing Physician Notes I personally examined the patient and verified all knox points of history and exam, discussed case, and agree with decision making with Dr Rod Ongoing painescalated dosing of Dilaudid seems to be helping some. Thinks IV infiltrated on left side and previous dosing might not have gotten in. Still has CLOTH SHRINKING MACHINE OPERATOR HELPER running through good IV. Poor appetitebut has not been taking Zofran. At the same time she also has not had a bowel movement for several days. Vitals noted, in general she appears to be fairly comfortable whenever I first saw her earlier she was sound asleep, on revisit she is sitting up in bed appears to be in no distress. Breathing unlabored no accessory muscle use good effort. Left- sided arm slightly puffy although no erythema no crepitus no fluctuance. Abdomen is soft moderately distended nontender. Sickle cell with acute pain crisis and a mild degree of hemolysisfortunately still no indications for transfusion. Seems to be doing a bit better on escalated pain regimen, IV infiltration not withstanding, continue current care for now. Poor appetiteprobably to a degree pain and pain med mediated, also constipation mediatedbowel regimen otherwise as above Subjective Today, pt states that she is feeling overall about the same as yesterday in general but feels her pain is not as controlled as it was yesterday. She states that she knows she was given a 0.15 mg dose of dilaudid last night through her L arm access but she states she did not notice the normal saline smell in her nose when they gave her the flush before the dose and the dose did not seem to do anything for her, so she believes the line had gone bad and the fluid just went into her arm instead of her system. Otherwise, no pain noted elsewhere and tolerating intake without issue. She states she has a sickle cell crisis about 1-2 times monthly and when she does she uses dilaudid 2 mg q4h for pain control for a few doses. She is pleasantly conversational and tells me she is graduating [employer] in March to get her bachelor's in health administration and then wants to maybe get a masters but ultimately go to law school. She is optimistic about the future. Review of Systems Review of Systems: Per HPI. Physical Exam Physical Exam: General:Alert and oriented, no acute distress, uncomfortable appearing HEENT: Normocephalic, moist oral mucosa, Cardio: Regular rate and rhythm, no murmur, Resp:Lungs clear to auscultation b/l, no wheezes or rhonchi, GI: Soft and nontender, Skin: Warm, pink, dry, MSK: Paraspinal muscular hypertonicity noted of lumbar spine Results & Data Results & Data Vital Signs (Past 12 Hours) Vital Signs Temp Pulse Pulse Resp BP Pulse Ox O2 Del Method 03/05/24 07:25 96 H 03/05/24 07:20 36.9 C 91 H 20 104/60 96 Room Air 03/05/24 03:26 36.9 C 90 18 101/57 L 98 Room Air 03/05/24 00:02 36.7 C 87 18 103/66 98 Room Air 03/04/24 22:50 93 H 03/04/24 20:52 Room Air Resident Activity Tracking Resident Involvement: Resident Care Provided Care Provided: Adult Hospital Medicine
[2024-03-05] MEDS: HYDROmorphone INJ 2 MG/ML SYR/VIAL IV PRN (09:42)
[2024-03-05] MEDS: POLYETHYLENE (MIRALAX) 17 GM PACK PO PRN (09:50)
[2024-03-05] MEDS: POLYETHYLENE (MIRALAX) 17 GM PACK PO ONE (16:57)
[2024-03-05] MEDS: SENNA 8.6 MG TAB PO SCH (16:57)
--- NOTE | 2024-03-05 18:42 | Billing Data ---
Date of Service March 05, 2024 Coding Level of Care Code 62594 SUB INP/OBS CARE MIN
[2024-03-06 07:02] LABS: Basophils % (auto) 0.9 %; Eosinophils # (auto) 0.94 K/uL (0.00-0.50); Eosinophils % (auto) 8.4 %; Hematocrit (blood only) 23.3 % (37.0-47.0); Hemoglobin 8.4 g/dl (12.0-16.0); Immature Granulocytes # (auto) 0.05 K/uL (0.01-0.20); Immature Granulocytes % (auto) 0.4 %; Mean Corpuscular Hemoglobin 30.8 pg (25.0-34.0); Mean Corpuscular Hgb Conc 36.1 g/dL (32.0-36.0); Mean Corpuscular Volume 85.3 fL (80.0-100.0); Mean Platelet Volume 10.5 fL (9.4-12.4); Monocytes # (auto) 1.44 K/uL (0.11-0.59); Monocytes % (auto) 12.8 %; Neutrophils # (auto) 5.89 K/uL (1.40-6.50); Neutrophils % (auto) 52.5 %; Nucleated RBC # (auto) 0.18 K/uL (0.00-0.12); Nucleated RBC % (auto) 1.6 %; Platelet Count 267 K/uL (130-400); RDW Coefficient of Variation 15.4 % (11.5-14.5); Red Blood Count 2.73 M/uL (4.20-5.40); White Blood Count 11.22 K/ul (4.8-10.8)
--- NOTE | 2024-03-06 07:10 | Hospitalist Progress Note ---
Date of Service March 06, 2024 Assessment & Plan (1) Sickle-cell disease with pain: Plan Patient is a 23y/o female with a past medical history of sickle cell disease, asthma, and anxiety who presented for generalized pain suspicious for sickle cell pain crisis. Generalized pain in the setting of sickle cell crisis, acute on chronic - pt notes pain in her back that she presents with is similar to other times she has had sickle cell crisis - goal today will be discontinue AGRICULTURE ENGINEER pump as pain has improved and see how she does on prn dilaudid dosing Sickle cell disease with anemia - hemoglobin today 8.4 - continue folic acid - continue to monitor Skin Lesions - Lesions over R radius and L dorsum of hand consistent with hives noted on admission that improved over the course of 10 minutes after patient received a dose of Benadryl, pt did note this again yesterday on R arm after dose of dilaudid given through left access site but refused Benadryl due to sedating effects - will continue to monitor as no rash noted again this morning and seems to spontaneously resolve Asthma Status: chronic, controlled. - Continue Symbicort - Continue Albuterol - Continue Zyrtec Depression Status: chronic, controlled. - Continue Sertraline 25g daily Admission and Anticipated Discharge Date Admission Date: March 02, 2024 Supervising Physician Co-Signing Physician Notes I personally examined the patient and verified all knox points of history and exam, discussed case, and agree with decision making with Dr Rod pain was doing better thought maybe towards going home but then w AGRICULTURE ENGINEER off pain getting worse again - think probably too soon for home. appetite slightly better but still not great but was able to at least eat a little. Vitals noted, in general aao pleasant fatigued breathing unlabored no accessory muscles good effort skin no rashes no pallor or icterus Sickle cell with acute pain crisis and a mild degree of hemolysisfortunately no indications for transfusion and labs stabilized. she had been hoping to be able to get home today so AGRICULTURE ENGINEER was stopped - but pain still fairly significant --> resume AGRICULTURE ENGINEER for now Poor appetiteprobably to a degree pain and pain med mediated, also constipation mediated escalate bowel regimen otherwise as above Subjective Today, pt states her pain has been much better with the regime started yesterday and she is generally feeling pretty well. She states the dilaudid 2 mg doses seem to last a few hours and work well for her in terms of relief. She states she still gets occasional pings of pain but it is much improved and she is interested in getting off the AGRICULTURE ENGINEER pump today. She states she had a good night last night and slept well. Review of Systems Review of Systems: Per HPI. Physical Exam Physical Exam: General:Alert and oriented, no acute distress, HEENT: Normocephalic, moist oral mucosa, Cardio: Regular rate and rhythm, no murmur, Resp:Lungs clear to auscultation b/l, no wheezes or rhonchi, GI: Soft and nontender, Skin: Warm, pink, dry, Results & Data Results & Data Vital Signs (Past 12 Hours) Vital Signs Temp Pulse Pulse Resp BP Pulse Ox O2 Del Method 03/06/24 07:07 85 03/06/24 04:00 37.0 C 98 H 20 111/61 95 Room Air 03/05/24 23:35 36.8 C 109 H 20 100/69 100 Room Air 03/05/24 22:01 94 H 03/05/24 19:56 36.9 C 96 H 20 108/67 97 Room Air Resident Activity Tracking Resident Involvement: Resident Care Provided Care Provided: Adult Hospital Medicine
[2024-03-06 07:12] LABS: Alanine Aminotransferase 37 U/L (7-52); Albumin Globulin Ratio 1.5 (0.9-2); Albumin Level 3.7 gm/dl (3.4-5.0); Alkaline Phosphatase 40 U/L (34-104); Anion Gap 4 (3-11); Aspartate Aminotransferase 35 U/L (13-39); BUN Creatinine Ratio 8.6 (10-20); Blood Urea Nitrogen 5 mg/dl (6-23); Carbon Dioxide 26 mmol/L (21-32); Chloride 108 mmol/L (98-107); Creatinine Clr Calc Pharmacy 132.1 ml/min; Est GFR (African American) > 150.0 ml/min; Est GFR (Non-African American) 130.8 ml/min; Globulin 2.5 gm/dl (2.5-4.0); Glucose 92 mg/dl (70-99(Fasting)); Potassium 3.9 mmol/L (3.5-5.1); Sodium 138 mmol/L (136-145); Total Protein 6.2 gm/dl (6.0-8.3)
[2024-03-06] MEDS ORDERED: NALOXONE HCL 0.4 MG/1 ML VIAL/CARP IV PRN (15:24)
--- NOTE | 2024-03-06 15:34 | Billing Data ---
Date of Service March 06, 2024 Coding Level of Care Code 55534 SUB INP/OBS CARE MIN
[2024-03-06] MEDS: SODIUM CHLORIDE 0.9% 1,000 ML IV SCH (15:52)
[2024-03-06] MEDS: POLYETHYLENE (MIRALAX) 17 GM PACK PO ONE (16:10)
[2024-03-06] MEDS: HYDROmorphone PCA 30 MG/30 ML IV PRN (16:10)
[2024-03-06] MEDS: POLYETHYLENE (MIRALAX) 17 GM PACK PO SCH (22:05)
[2024-03-07 06:50] LABS: Basophils # (auto) 0.11 K/uL (0.00-0.20); Eosinophils # (auto) 0.91 K/uL (0.00-0.50); Eosinophils % (auto) 8.7 %; Hemoglobin 7.8 g/dl (12.0-16.0); Immature Granulocytes # (auto) 0.06 K/uL (0.01-0.20); Immature Granulocytes % (auto) 0.6 %; Lymphocytes # (auto) 2.92 K/uL (1.20-3.40); Lymphocytes % (auto) 27.8 %; Mean Corpuscular Hemoglobin 30.7 pg (25.0-34.0); Mean Corpuscular Hgb Conc 35.5 g/dL (32.0-36.0); Mean Corpuscular Volume 86.6 fL (80.0-100.0); Mean Platelet Volume 10.1 fL (9.4-12.4); Monocytes # (auto) 1.36 K/uL (0.11-0.59); Neutrophils # (auto) 5.14 K/uL (1.40-6.50); Neutrophils % (auto) 48.9 %; Nucleated RBC # (auto) 0.27 K/uL (0.00-0.12); Nucleated RBC % (auto) 2.6 %; Platelet Count 274 K/uL (130-400); RDW Coefficient of Variation 15.8 % (11.5-14.5); RDW Standard Deviation 48.3 fL (36.4-46.3); Red Blood Count 2.54 M/uL (4.20-5.40)
[2024-03-07 07:05] LABS: Alanine Aminotransferase 34 U/L (7-52); Albumin Globulin Ratio 1.6 (0.9-2); Albumin Level 3.6 gm/dl (3.4-5.0); Alkaline Phosphatase 43 U/L (34-104); Anion Gap 3 (3-11); Aspartate Aminotransferase 34 U/L (13-39); BUN Creatinine Ratio 9.1 (10-20); Bilirubin,Total 1.9 mg/dl (0.2-1.0); Blood Urea Nitrogen 5 mg/dl (6-23); Calcium 8.8 mg/dl (8.6-10.3); Carbon Dioxide 27 mmol/L (21-32); Chloride 110 mmol/L (98-107); Creatinine Clr Calc Pharmacy 146.9 ml/min; Est GFR (African American) > 150.0 ml/min; Est GFR (Non-African American) 133.1 ml/min; Globulin 2.3 gm/dl (2.5-4.0); Glucose 111 mg/dl (70-99(Fasting)); Potassium 3.7 mmol/L (3.5-5.1); Sodium 140 mmol/L (136-145); Total Protein 5.9 gm/dl (6.0-8.3)
[2024-03-07 07:18] LABS: Anisocytosis Present; Polychromasia 2+; Stomatocytes 1+; Target Cells 3+
--- NOTE | 2024-03-07 07:23 | Hospitalist Progress Note ---
Date of Service March 07, 2024 Assessment & Plan (1) Sickle-cell disease with pain: Plan Patient is a 23y/o female with a past medical history of sickle cell disease, asthma, and anxiety who presented for generalized pain suspicious for sickle cell pain crisis. Generalized pain in the setting of sickle cell crisis, acute on chronic - pt notes pain in her back that she presents with is similar to other times she has had sickle cell crisis - goal today will be discontinue DRYWALL CONTRACTOR pump and see how she does on prn dilaudid dosing overnight Sickle cell disease with anemia - hemoglobin today 7.8 - continue folic acid - continue to monitor Constipation: - No bowel movement in the past 7 days, likely secondary to opioids - Escalate bowel regimen, will give Miralax Q4h until patient has a bowel movem ent Skin Lesions - Lesions over R radius and L dorsum of hand consistent with hives noted on admission - improved over the course of 10 minutes after patient received a dose of Benadryl - will continue to monitor, though no further rash noted Asthma Status: chronic, controlled. - Continue Symbicort - Continue Albuterol - Continue Zyrtec Depression Status: chronic, controlled. - Continue Sertraline 25g daily Admission and Anticipated Discharge Date Admission Date: March 02, 2024 Supervising Physician Co-Signing Physician Notes Attending Physician Supervision Note: I independently interviewed and examined the patient and verified the knox history and physical, reviewed labs and image studies and agree with findings and care plan noted above. Subjective Pt evaluated at bedside this morning, notes that overnight pain was fairly severe, was not able to get much sleep. Has continued to require DRYWALL CONTRACTOR + prn Dila udid. Still hopeful about going home tomorrow, would like to reassess this evening and potentially trial discontinuation of DRYWALL CONTRACTOR - if not requiring prn Dilaudid overnight, would ideally like to go home tomorrow. Also notes that she has not had a bowel movement in 1 week. Denies CP/SOB/abdominal pain. Review of Systems Review of Systems: Per HPI. Physical Exam Physical Exam: General:Alert and oriented, no acute distress, HEENT: Normocephalic, moist oral mucosa, Cardio: Regular rate and rhythm, no murmur, Resp:Lungs clear to auscultation b/l, no wheezes or rhonchi, GI: Soft and nontender, Skin: Warm, dry, minimal irritation on right forearm but no urticarial rash noted. Results & Data Results & Data Vital Signs (Past 12 Hours) Vital Signs Temp Pulse Pulse Resp BP Pulse Ox O2 Del Method 03/07/24 03:52 36.3 C L 94 H 16 102/68 98 Room Air 03/07/24 00:21 37.0 C 83 20 110/71 97 Room Air 03/06/24 22:09 94 H 03/06/24 19:57 37.0 C 110 H 20 132/83 98 Room Air Resident Activity Tracking Resident Involvement: Resident Care Provided Care Provided: Adult Hospital Medicine
[2024-03-07] MEDS: POLYETHYLENE (MIRALAX) 17 GM PACK PO SCH (14:01)
[2024-03-08 06:29] LABS: Hematocrit (blood only) 23.4 % (37.0-47.0); Hemoglobin 8.4 g/dl (12.0-16.0); Mean Corpuscular Hemoglobin 30.8 pg (25.0-34.0); Mean Corpuscular Hgb Conc 35.9 g/dL (32.0-36.0); Mean Corpuscular Volume 85.7 fL (80.0-100.0); Mean Platelet Volume 10.2 fL (9.4-12.4); Nucleated RBC # (auto) 0.27 K/uL (0.00-0.12); Nucleated RBC % (auto) 1.8 %; Platelet Count 294 K/uL (130-400); RDW Coefficient of Variation 15.6 % (11.5-14.5); RDW Standard Deviation 46.5 fL (36.4-46.3); Red Blood Count 2.73 M/uL (4.20-5.40); White Blood Count 15.33 K/ul (4.8-10.8)
[2024-03-08 06:44] LABS: Anion Gap 6 (3-11); BUN Creatinine Ratio 6.8 (10-20); Blood Urea Nitrogen 4 mg/dl (6-23); Carbon Dioxide 26 mmol/L (21-32); Chloride 108 mmol/L (98-107); Creatinine Clr Calc Pharmacy 136.9 ml/min; Est GFR (African American) > 150.0 ml/min; Est GFR (Non-African American) 130.1 ml/min; Glucose 102 mg/dl (70-99(Fasting)); Potassium 3.5 mmol/L (3.5-5.1); Sodium 140 mmol/L (136-145)
--- NOTE | 2024-03-08 10:14 | Hospitalist Progress Note ---
Date of Service March 08, 2024 Assessment & Plan (1) Sickle-cell disease with pain: Plan Patient is a 23y/o female with a past medical history of sickle cell disease, asthma, and anxiety who presented for generalized pain suspicious for sickle cell pain crisis. Generalized pain in the setting of sickle cell crisis, acute on chronic - pt notes pain in her back that she presented with is similar to other times she has had sickle cell crisis - goal today to wean Dilaudid requirement as feasible Sickle cell disease with anemia - hemoglobin today 8.4 - continue folic acid - continue to monitor Constipation: - No bowel movement in the past 8 days, likely secondary to opioids - Continue more aggressive bowel regimen, give Miralax Q4h until patient has a bowel movement Skin Lesions - Lesions over R radius and L dorsum of hand consistent with hives noted on admission - improved over the course of 10 minutes after patient received a dose of Benadryl - will continue to monitor, though no further rash noted Asthma Status: chronic, controlled. - Continue Symbicort - Continue Albuterol - Continue Zyrtec Depression Status: chronic, controlled. - Continue Sertraline 25g daily Admission and Anticipated Discharge Date Admission Date: March 02, 2024 Supervising Physician Co-Signing Physician Notes Attending Physician Supervision Note: I independently interviewed and examined the patient and verified the knox history and physical, reviewed labs and image studies and agree with findings and care plan noted above. Subjective Pt evaluated at bedside this morning, still having significant pain in back and legs. Has continued to require PRIVATE DUTY LPN + prn Dilaudid - total during shift production supervisor 11mg from PRIVATE DUTY LPN + 6mg administered by nursing. Still no bowel movement. Denies CP/SOB/abdominal pain. Review of Systems Review of Systems: Per HPI. Physical Exam Physical Exam: General:Alert and oriented, no acute distress, HEENT: Normocephalic, moist oral mucosa, Cardio: Regular rate and rhythm, no murmur, Resp:Lungs clear to auscultation b/l, no wheezes or rhonchi, GI: Soft and nontender, Skin: Warm, dry, minimal irritation on right forearm but no urticarial rash noted. Results & Data Results & Data Vital Signs (Past 12 Hours) Vital Signs Temp Pulse Pulse Resp BP Pulse Ox O2 Del Method 03/08/24 09:52 18 125/65 98 Room Air 07/23/24 07:31 36.8 C 84 18 112/70 95 Room Air 03/08/24 07:26 92 H 03/08/24 03:51 37.0 C 86 20 121/76 99 Room Air 03/07/24 23:01 37.0 C 78 18 126/79 98 Room Air Resident Activity Tracking Resident Involvement: Resident Care Provided Care Provided: Adult Hospital Medicine
[2024-03-09 06:11] LABS: Hematocrit (blood only) 23.4 % (37.0-47.0); Hemoglobin 8.3 g/dl (12.0-16.0); Mean Corpuscular Hemoglobin 30.9 pg (25.0-34.0); Mean Corpuscular Hgb Conc 35.5 g/dL (32.0-36.0); Mean Platelet Volume 9.8 fL (9.4-12.4); Nucleated RBC # (auto) 0.23 K/uL (0.00-0.12); Platelet Count 285 K/uL (130-400); RDW Coefficient of Variation 15.8 % (11.5-14.5); RDW Standard Deviation 46.6 fL (36.4-46.3); Red Blood Count 2.69 M/uL (4.20-5.40); White Blood Count 11.63 K/ul (4.8-10.8)
[2024-03-09 06:24] LABS: Anion Gap 3 (3-11); BUN Creatinine Ratio 5.3 (10-20); Blood Urea Nitrogen 3 mg/dl (6-23); Calcium 8.9 mg/dl (8.6-10.3); Carbon Dioxide 27 mmol/L (21-32); Chloride 108 mmol/L (98-107); Creatinine Clr Calc Pharmacy 141.7 ml/min; Est GFR (African American) > 150.0 ml/min; Est GFR (Non-African American) 131.6 ml/min; Glucose 102 mg/dl (70-99(Fasting)); Potassium 3.9 mmol/L (3.5-5.1); Sodium 138 mmol/L (136-145)
[2024-03-09] MEDS: CETIRIZINE HCL 10 MG TABLET PO PRN (08:51)
--- NOTE | 2024-03-09 14:08 | Hospitalist Progress Note ---
Date of Service March 09, 2024 Assessment & Plan (1) Sickle-cell disease with pain: Plan Patient is a 23y/o female with a past medical history of sickle cell disease, asthma, and anxiety who presented for generalized pain suspicious for sickle cell pain crisis. Generalized pain in the setting of sickle cell crisis, acute on chronic - pt notes pain in her back that she presented with is similar to other times she has had sickle cell crisis - Pt still with high analgesic requirement, goal today to wean Dilaudid requirement as feasible - Continue IV fluids Sickle cell disease with anemia - hemoglobin today 8.3 - continue folic acid - continue to monitor Constipation: - No bowel movement since beginning of current pain episode, likely secondary to opioids - Continue more aggressive bowel regimen, give Miralax Q4h until patient has a bowel movement Skin Lesions - Lesions over R radius and L dorsum of hand consistent with hives noted on admission - improved over the course of 10 minutes after patient received a dose of Benadryl - will continue to monitor, though no further rash noted Asthma Status: chronic, controlled. - Continue Symbicort - Continue Albuterol - Continue Zyrtec Depression Status: chronic, controlled. - Continue Sertraline 25g daily Admission and Anticipated Discharge Date Admission Date: March 02, 2024 Supervising Physician Co-Signing Physician Notes Attending Physician Supervision Note: I independently interviewed and examined the patient and verified the knox history and physical, reviewed labs and image studies and agree with findings and care plan noted above. Subjective Pt evaluated at bedside this morning, still having pain in back and legs. Has continued to require STAFFING PROGRAM MANAGER + prn Dilaudid - total during steward/stewardess night 10.5mg from STAFFING PROGRAM MANAGER + 6mg administered by nursing. Still no bowel movement. Denies CP/SOB/abdominal pain. Of note, patient notes that period began last night, states that pain crises are typically worse when they coincide with menstruation. Pain typically lasts 7-10 days, current episode began about 7 days ago. Review of Systems Review of Systems: Per HPI. Physical Exam Physical Exam: General:Alert and oriented, no acute distress, HEENT: Normocephalic, moist oral mucosa, Cardio: Regular rate and rhythm, no murmur, Resp:Lungs clear to auscultation b/l, no wheezes or rhonchi, GI: Soft and nontender, Skin: Warm, dry, minimal irritation on right forearm but no urticarial rash noted. Results & Data Results & Data Vital Signs (Past 12 Hours) Vital Signs Temp Pulse Pulse Resp BP Pulse Ox O2 Del Method 03/09/24 11:51 36.9 C 91 H 18 118/81 98 Room Air 03/09/24 07:53 37.1 C 83 18 104/67 98 Nasal Cannula 03/09/24 07:41 88 03/09/24 03:55 36.8 C 95 H 14 99/68 L 92 Room Air O2 Flow Rate 03/09/24 11:51 03/09/24 07:53 2 03/09/24 07:41 03/09/24 03:55 Resident Activity Tracking Resident Involvement: Resident Care Provided Care Provided: Adult Hospital Medicine
[2024-03-09] MEDS: NYSTATIN SUSP 500,000 U/5 ML UDC PO STA (23:44)
[2024-03-10 07:26] LABS: Hematocrit (blood only) 23.3 % (37.0-47.0); Hemoglobin 8.4 g/dl (12.0-16.0); Mean Corpuscular Hemoglobin 30.9 pg (25.0-34.0); Mean Corpuscular Hgb Conc 36.1 g/dL (32.0-36.0); Mean Corpuscular Volume 85.7 fL (80.0-100.0); Mean Platelet Volume 9.7 fL (9.4-12.4); Nucleated RBC # (auto) 0.13 K/uL (0.00-0.12); Nucleated RBC % (auto) 1.4 %; Platelet Count 254 K/uL (130-400); RDW Coefficient of Variation 15.4 % (11.5-14.5); RDW Standard Deviation 46.4 fL (36.4-46.3); Red Blood Count 2.72 M/uL (4.20-5.40); White Blood Count 9.39 K/ul (4.8-10.8)
[2024-03-10 07:48] LABS: Alanine Aminotransferase 48 U/L (7-52); Albumin Globulin Ratio 1.4 (0.9-2); Albumin Level 3.7 gm/dl (3.4-5.0); Alkaline Phosphatase 50 U/L (34-104); Anion Gap 5 (3-11); Aspartate Aminotransferase 48 U/L (13-39); BUN Creatinine Ratio 9.3 (10-20); Bilirubin,Total 1.7 mg/dl (0.2-1.0); Blood Urea Nitrogen 5 mg/dl (6-23); Calcium 8.9 mg/dl (8.6-10.3); Carbon Dioxide 25 mmol/L (21-32); Chloride 108 mmol/L (98-107); Creatinine Clr Calc Pharmacy 149.6 ml/min; Est GFR (African American) > 150.0 ml/min; Est GFR (Non-African American) 133.9 ml/min; Globulin 2.6 gm/dl (2.5-4.0); Glucose 91 mg/dl (70-99(Fasting)); Potassium 3.7 mmol/L (3.5-5.1); Sodium 138 mmol/L (136-145); Total Protein 6.3 gm/dl (6.0-8.3)
[2024-03-10] MEDS: NYSTATIN SUSP 500,000 U/5 ML UDC PO SCH (09:03)
--- NOTE | 2024-03-10 11:42 | Discharge Summary ---
Date of Service March 10, 2024 Admission HPI Per Admitting Provider Kaylan is a 23F w/ PMH of sickle cell disease, asthma, anxiety, splenomegaly, and seasonal allergies who presents due to generalized pain. ED: Hydromorphone 2g, Tylenol, 1L NSS, and Zofran HPI: - 2 days ago started having increasing amounts of pain in her back and knees - Notes that she ran out of water at home, was unable to get to store to get a case - Says the heat increase has exacerbated her symptoms and dehydration is a trigger for her pain - Notes she has continued to eat regularly - No redness or swelling in her knees or fingers - No chest pain, abdominal pain, or dyspnea - Urinating regularly, notes her urine is darker than normal - Moving bowels well, w/o diarrhea or constipation - No headaches, lightheadedness, or vision changes - States she has been using Dilaudid 2 mg q 4h at home without benefit so she presented to ED - In addition, she was taking Ibuprofen at home - She continues to receive her biologic infusions at home in [place] and will transition all shelter come March when she graduates - Notes that currently the medication is only working for the first few moments, followed by symptom return - Pain crises are typically initiated by illness, but notes she has experienced episodes from dehydration Admission Exam Per Admitting Provider patient is alert, awake, oriented times 3 head atraumatic, normocephalic neck supple, mo JVD, no thyromegaly, lymphadenopathy Lungs decreased breath sounds at bases heart S1S2 regular, no murmur, no gallops abdomen soft, nt, nd, bs present extremities no edema , pulses present Principal Diagnosis Sickle cell pain crisis Discharge Exam General:Alert and oriented, no acute distress, HEENT: Normocephalic, moist oral mucosa, Cardio: Regular rate and rhythm, no murmur, Resp:Lungs clear to auscultation b/l, no wheezes or rhonchi, GI: Soft and nontender, Skin: Warm, dry, minimal irritation on right forearm but no urticarial rash noted. Discharge Data Allergies Allergy/AdvReac Type Severity Reaction Status Date / Time peanut Allergy Intermediate ITCHY HIVES Verified 07/21/23 12:44 Consultations 03/02/24 20:17 ED Decision to Admit Stat Hospital Course (1) Sickle-cell disease with pain: Plan Patient is a 23y/o female with a past medical history of sickle cell disease, asthma, and anxiety who presented for generalized pain suspicious for sickle cell pain crisis. Generalized pain in the setting of sickle cell crisis, acute on chronic - pain on presentation was similar to other times she has had sickle cell crisis - managed with IV fluids and hydromorphone - Analgesic requirement significantly lower at time of discharge, discharged with small amount of PO hydromorphone for breakthrough pain Sickle cell disease with anemia - hemoglobin 8.4 on morning of discharge - continue folic acid - continue to monitor in outpatient setting - On Crizanlizumab as outpatient. Constipation: - Patient finally had first bowel movement on morning of discharge - Continue bowel regimen with Miralax while on opioids Asthma Status: chronic, controlled. - Continue Symbicort - Continue Albuterol - Continue Zyrtec Depression Status: chronic, controlled. - Continue Sertraline 25g daily Total Time Total Time Spent Total Time Spent (In Minutes): see attending attestation Discharge Plan Discharge Items Patient Disposition: Home - Self-Care Reason For Visit: SICKLE CELL PAIN Discharge Diagnosis: Sickle cell pain episode Condition on Discharge: Good Activity: Resume your previous activity Non-emergency contact: Primary Care Provider Call non-emergency contact if: you have any medication questions, your symptoms worsen and your pain is not controlled Follow-up/Referrals: [place] [Primary Care Provider] - Diet: Regular Addtl Attending Provider Instructions: You were admitted to the hospital for an acute sick cell pain crisis. For this, you were treated with IV fluids and pain medication. Upon discharge, a small amount of pain medication will be sent to your pharmacy. This is to help control residual pain until you are back to baseline. These medications can be constipating - while taking any opioid pain medications, we recommend using an over the counter stool softener such as Miralax as needed to maintain soft, regular bowel movements. A discharge summary will be sent to your primary care physician to ensure continuity of care. Please bring this discharge summary with you to your next office appointment so that your provider can review it at that time. Medications: Your medication list has been reviewed and reconciled upon discharge to ensure accuracy and continuity of care. An updated list of all your medications is included with your hospital discharge paperwork. Please review this list closely and make note of any changes to your medications. No changes were made to your routine home medications, please continue to take them as previously directed. Follow up appointments: - Make a follow up appointment with your PCP within the next week. It is very important that you follow up with them shortly after discharge from the hospital. - Keep all of your follow up appointments as already scheduled. If you cannot make an appointment, notify your provider. CONTACT YOUR PRIMARY CARE PROVIDER if you experience any of the following: - Difficulty following your treatment plan - Difficulty taking any of your medications CALL 911 OR GO TO THE EMERGENCY DEPARTMENT if you experience any of the following: - Sudden, severe abdominal pain or nausea/vomiting - Severe chest pain or chest pain that radiates to your jaw or arm - Sudden, severe shortness of breath or difficulty breathing Pending Studies at Discharge: No Stand-Alone Forms: My [facility], Smoking Cessation Medications and DC Order Prescriptions: Continued cetirizine [Zyrtec] 10 mg tablet 10 mg PO HS PRN (Reason: Congestion) acetaminophen 325 mg tablet 650 mg PO DIRECTED PRN (Reason: Pain) budesonide-formoterol [Symbicort] 80-4.5 mcg/actuation Hfa Aerosol Inhaler 2 puff INHALATION BID PRN (Reason: Shortness Of Breath Or Wheezing) Adakveo 10 mg/mL Solution See Rx Instructions .ROUTE .COMPLEX Rx Instructions: infusion monthly per pt folic acid 1 mg tablet 5 mg PO DAILY sertraline tablet 25 mg PO DAILY ibuprofen 800 mg tablet 800 mg PO TID ergocalciferol (vitamin D2) 1,250 mcg (50,000 unit) capsule 50,000 unit PO DIRECTED Changed hydromorphone 2 mg tablet 2 mg PO Q6 PRN (Reason: pain) Qty: 15 0RF Discharge Orders: Discharge Order (Routine); Ordered 03/10/24 Ordered By: Miriam Huber/Other Patient Handouts: Sickle Cell Anemia Admission Data Admit Date/Time: 03/02/24 21:17 Attending Provider: Miriam Monroy Admit Provider: Dorys Correa Primary Care Provider: [facility] Other Providers: Steven Rodgers; Patrick Robin Other Interventions: Discharge Summary Assessment (RN) Last Done: 03/10/24 17:15 Supervising Physician Co-Signing Physician Notes Attending Physician Supervision Note: I independently interviewed and examined the patient and verified the knox history and physical, reviewed labs and image studies and agree with findings and care plan noted above. Resident Activity Tracking Resident Involvement: Resident Care Provided Care Provided: Adult [facility]
== END 2024-03-10 18:11 | disposition home or self-care (01) | DRG 812 ==
LOC: ED 17:25 → 2N 21:17 → SUATTDRO 21:17 → 2N 03-03 00:16 → 2E 03-03 16:20 → 2W 03-04 22:56